=== PATIENT | female | born 1955 | race Two or more races ===

== ENCOUNTER 2022-12-01 07:50 | Day surgery (SDC) | payer MEDICARE, SELFPAY ==
[2022-12-01 08:08] VITALS: BP 146/89; RESP 20; TEMP 36.4; O2SAT 96
[2022-12-01 08:20] LABS: Glucometer 127 mg/dL (74-106)
[2022-12-01] MEDS: 0.9 % SODIUM CHLORIDE 500 ML 50 ML IV (08:20)
--- NOTE | 2022-12-01 08:28 | W.PM.PROCNOT ---
Date of procedure: 12/01/22 Procedure: Right Lateral cutaneous iliohypogastric nerve Radiofrequency ablation PreOp diagnosis: pain secondary to include right lateral cutaneous neuritis Postop diagnosis same Under fluoroscopic guidance Rhizotomy was created using radio frequency ablation at 80?C for 90 seconds 1 to 2 lesions created at each site. Post lesioning injection of 2 mL each of 0.25% Marcaine and 2% lidocaine with Depo-Medrol 40mg. 0.5 to 1 mL injected at each site IV in place yes Intravenous fluids: NS at KVO Anesthesia local 2% lidocaine Anesthesia Other: MAC Timeout process compliant After informed consent obtained. Patient brought to the procedure room placed in the prone position skin overlying the area was prepped and draped in a sterile fashion using betadine. 25 gauge needle was used to create a skin wheal over each of the targeted areas utilizing 2% lidocaine. A rhizotomy needle with a 10 mm active tip was inserted over each of the anesthetized areas and directed towards four different areas in the distribution of the lateral cutaneous branches of the iliohypogastric nerve, accomplished under fluoroscopic guidance. After encountering the same we had positive sensory stimulation, negative motor stimulation was noted. lesions were then created. Post lesioning, steroid solution was injected needles removed. Patient was transferred to recovery room in stable condition to be discharged home after meeting criteria. Surgeon: Johana Jurado Condition: stable
[2022-12-01] MEDS: METHYLPREDNISOLONE ACETATE 40 MG/ML VIAL INJ (09:22)
[2022-12-01] MEDS: LIDOCAINE HCL 2% 400 MG/20 ML MDV 6 ML INJ (09:23)
[2022-12-01] MEDS: BUPIVACAINE HCL 0.25% PF 25 MG/10 ML VIAL 4 ML INJ (09:23)
[2022-12-01 09:35] VITALS: BP 142/66; PULSE 60; RESP 16; O2SAT 98
[2022-12-01 09:47] VITALS: BP 149/77; PULSE 60; RESP 16; O2SAT 99
[2022-12-01 10:08] VITALS: BMI 35.6
== END 2022-12-01 09:57 | disposition home or self-care (01) ==
LOC: SURGOUT 07:51
PROVIDERS: PCP Nurse Practitioner Family; Visit Provider Anesthesiology Pain Medicine
DX: G57.81 Other specified mononeuropathies of right lower limb (principal)
CPT/HCPCS: 36415; 64640; 77002; 82948; J1030; J2704

== ENCOUNTER 2023-01-19 10:30 | Emergency (ER) | payer MEDICARE, SELFPAY ==
[2023-01-19] VITALS (10 sets, daily range): BP systolic 124–163; BP diastolic 72–81; PULSE 69–77; RESP 15–24; TEMP 36.7; O2SAT 96–97; BMI 33.8
--- NOTE | 2023-01-19 10:40 | CT_ITS ---
[address] [address] Patient Name: GUSTAVO FLORES MRN: [id number] date: 1955 Sex: F Assigned Patient Location: Current Patient Location: Accession/Order Number: [id number] Exam Date: 01/19/2023 10:53 Report Date: 01/19/2023 12:22 At the request of: YIMI JARVIS Procedure: CT cervical spine wo con CT cervical spine without contrast, 01/19/2023. HISTORY: Acute neck pain. Numbness and tingling in arms. COMPARISON: None. TECHNIQUE: Noncontrast axial CT images obtained through the cervical spine. Reconstructions obtained in the sagittal and coronal planes. Dose reduction techniques were achieved by using automated exposure control and/or adjustment of mA and/or kV according to patient size and/or use of iterative reconstruction technique. FINDINGS: There are postoperative changes from anterior discectomy and fusion at C5-C6. The hardware is intact. There is good osseous fusion across the C5-C6 disc space. Odontoid process intact. Alignment normal. Facet joints normal. No evidence of fractures. C2-C3, no spinal stenosis or foraminal narrowing. C3-C4, mild degenerative disc disease. There is a shallow broad-based central protrusion with mild spinal stenosis. No foraminal narrowing. C4-C5, moderate degenerative disc disease. Disc bulge and ligamentum flavum thickening result in moderate spinal stenosis. Uncovertebral osteophyte results in moderate left foraminal narrowing. C5-C6, there are postoperative changes from anterior fusion. Mild spinal canal stenosis. Mild left foraminal narrowing. C6-C7, severe degenerative disc disease. Mild spinal stenosis. Uncovertebral osteophyte results in moderate bilateral foraminal narrowing. C7-T1, severe degenerative disc disease. No spinal stenosis. Right foraminal uncovertebral osteophyte results in moderate right foraminal narrowing. No paraspinal soft tissue swelling. No paraspinal mass. CT/CT cervical spine wo con IMPRESSION: 1. There are postoperative changes from previous anterior fusion at C5-C6. There is solid osseous fusion across the disc space. Mild spinal stenosis at this level. Mild left foraminal narrowing. 2. Severe degenerative disc disease at C6-C7 and C7-T1. Moderate degenerative disc disease at C3-C4. 3. Degenerative changes result in moderate spinal stenosis at C4-C5. 4. Mild and moderate foraminal narrowing at multiple levels as described above. Electronically authenticated by: YVES SANDY Date: 01/19/2023 12:22
--- NOTE | 2023-01-19 10:40 | ECG_ITS ---
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
--- NOTE | 2023-01-19 10:48 | ED.GENADUL1 ---
HPI - General Adult General Chief complaint: Neuro Symptoms/Deficit Stated complaint: UPPER EXTREMITY PAIN AND NUMBNESS RIGHT ARM Time Seen by Provider: 01/19/23 10:33 Source: patient Mode of arrival: walk-in Limitations: no limitations History of Present Illness HPI narrative: 67-year-old female presents for left arm numbness and tingling and pain which starts in her neck. She's had this intermittently for two weeks. No headache or chest pain. No symptoms in the right arm or either leg. She's never had this previously. Related Data Home Medications Medication Instructions Recorded Confirmed OSCAL 11/23/22 atorvastatin 40 mg tablet 40 mg PO .HS 11/23/22 12/01/22 dulaglutide 1.5 mg/0.5 mL 1.5 mg subcut QWEEK 11/23/22 12/01/22 subcutaneous pen injector (Trulicity) empagliflozin 25 mg tablet 25 mg PO DAILY 11/23/22 12/01/22 (Jardiance) ferrous sulfate 325 mg (65 mg mg 11/23/22 iron) tablet gabapentin 600 mg tablet mg PO TID 11/23/22 insulin aspart U-100 100 unit/mL 30 unit subcut TID 11/23/22 12/01/22 (3 mL) subcutaneous pen (Novolog FlexPen U-100 Insulin aspart) mycophenolate mofetil 500 mg tablet 800 mg PO BID 11/23/22 12/01/22 naloxone 4 mg/actuation nasal spray intranasal 11/23/22 oxycodone-acetaminophen 7.5 mg-325 1 tab PO TID PRN pain 11/23/22 12/01/22 mg tablet (Endocet) sertraline 100 mg tablet 100 mg PO DAILY 11/23/22 12/01/22 tacrolimus 1 mg capsule, 3 mg PO Q12H 11/23/22 12/01/22 immediate-release tizanidine 4 mg tablet mg PO .HS PRN muscle spasticity 11/23/22 Previous Rx's Medication Instructions Recorded ibuprofen 800 mg tablet 800 mg PO Q8H PRN pain #20 tabs 01/19/23 methylprednisolone 4 mg tablets in 4 mg PO DAILY #21 ea 01/19/23 a dose pack (Methylpred DP) Allergies Allergy/AdvReac Type Severity Reaction Status Date / Time No Known Drug Allergies Allergy Verified 01/19/23 10:40 Review of Systems ROS Narrative A ten point review of systems is negative except as noted above. [facility] Medical History (Updated 01/19/23 @ 11:42 by Dani Solo MD) Surgical History (Updated 11/24/22 @ 11:35 by Domi Larose) Social History Smoking status: Never smoker Exam Narrative Exam Narrative: Nurses note and vital signs reviewed and patient is not hypoxic. General: The patient appears well and in no apparent distress. Patient is resting comfortably on cart. Skin: Warm, dry, no pallor noted. There is no rash noted. Head: Normocephalic, atraumatic. nneck has no bruise rash or swelling or erythema. Eye: Normal conjunctiva, no drainage Ears, Nose, Mouth, and Throat: oral mucosa is moist. Nares patent. Cardiovascular: Regular Rate and Rhythm Respiratory: Patient is in no distress, no accessory muscle use, lungs are clear to auscultation, no wheezing, rales or rhonchi Back: non-tender GI: nontender Musculoskeletal/neurologic: left arm is examined. There is no swelling or bruise or rash. Radial pulse 2+. Hand grasp five out of five and symmetric. Biceps and triceps strength five out five and symmetric. Shoulder has full range of motion. Psychiatric: Cooperative Constitutional Vital Signs, click to edit/add: Last Vital Signs Temp 98.0 F 01/19/23 10:36 Pulse 77 01/19/23 10:36 Resp 18 01/19/23 10:36 BP 163/81 H 01/19/23 10:36 Pulse Ox 97 01/19/23 10:36 O2 Del Method Room Air 01/19/23 10:36 Course Vital Signs Vital signs: Vital Signs Temperature 98.0 F 01/19/23 10:36 Pulse Rate 77 01/19/23 10:36 Respiratory Rate 18 01/19/23 10:36 Blood Pressure 163/81 H 01/19/23 10:36 Pulse Oximetry 97 01/19/23 10:36 Oxygen Delivery Method Room Air 01/19/23 10:36 Temperature 98.0 F 01/19/23 10:36 Pulse Rate 77 01/19/23 10:36 Respiratory Rate 18 01/19/23 10:36 Blood Pressure 163/81 H 01/19/23 10:36 Pulse Oximetry 97 01/19/23 10:36 Oxygen Delivery Method Room Air 01/19/23 10:36 Medical Decision Making MDM Narrative Medical decision making narrative: CAT scan findings are discussed with the patient. She previously had cervical spine surgery. She is going to be put on a low-dose of prednisone and will keep a close eye on her blood sugars. She is already on Percocet at home and is prescribed Motrin as well. Treatment diagnosis and follow-up were discussed with the patient. Differential Diagnosis Differential Diagnosis: herniated disc, cervical radiculopathy, spinal stenosis Imaging Data CT C-spine: Radiologist's impression: significant degenerative changes. ECG Data Attestation: I personally reviewed and interpreted this ECG as follows: (EKG on my interpretation shows normal sinus rhythm with a rate of seventy-three.) Discharge Plan Discharge Chief Complaint: Neuro Symptoms/Deficit Clinical Impression: Cervical radiculopathy Patient Disposition: Home, Self-Care Time of Disposition Decision: 11:37 Condition: Good Mode of Transportation: Private Vehicle Prescriptions / Home Meds: New methylprednisolone [Methylpred DP] 4 mg tablets,dose pack 4 mg PO DAILY Qty: 21 0RF ibuprofen 800 mg tablet 800 mg PO Q8H PRN (Reason: pain) Qty: 20 0RF No Action oxycodone-acetaminophen [Endocet] 7.5-325 mg tablet 1 tab PO TID PRN (Reason: pain) gabapentin 600 mg tablet PO TID ferrous sulfate 325 mg (65 mg iron) tablet Jardiance 25 mg tablet 25 mg PO DAILY tizanidine 4 mg tablet PO .HS PRN (Reason: muscle spasticity) tacrolimus 1 mg capsule 3 mg PO Q12H sertraline 100 mg tablet 100 mg PO DAILY atorvastatin 40 mg tablet 40 mg PO .HS naloxone 4 mg/actuation spray,non-aerosol INTRANASAL insulin aspart U-100 [Novolog FlexPen U-100 Insulin] 100 unit/mL (3 mL) insulin pen 30 unit subcut TID Trulicity 1.5 mg/0.5 mL pen injector 1.5 mg subcut QWEEK mycophenolate mofetil 500 mg tablet 800 mg PO BID OSCAL Instructions: Cervical Radiculopathy (ED) Stand Alone Forms: Portal Instructions Referrals: YOLANDA MAGAÑA [Primary Care Provider] - 1 week
== END 2023-01-19 11:56 | disposition home or self-care (01) ==
PROVIDERS: Emergency Provider Emergency Medicine; PCP Nurse Practitioner Family
DX: M54.12 Radiculopathy, cervical region (principal); Z79.899 Other long term (current) drug therapy; Z79.85 Long-term (current) use of injectable non-insulin antidiabetic drugs
CPT/HCPCS: 72125; 93005; 99284

== ENCOUNTER 2023-01-26 09:30 | Day surgery (SDC) | payer MEDICARE, SELFPAY ==
[2023-01-26 10:23] VITALS: BP 159/81; PULSE 67; RESP 16; TEMP 36.3; O2SAT 96
[2023-01-26 10:25] LABS: Glucometer 134 mg/dL (74-106)
[2023-01-26] MEDS: 0.9 % SODIUM CHLORIDE 500 ML IV (10:33)
[2023-01-26] MEDS: BUPIVACAINE HCL 0.25% PF 25 MG/10 ML VIAL 4 ML INJ (11:18)
[2023-01-26] MEDS: LIDOCAINE HCL 2% 400 MG/20 ML MDV 8 ML INJ (11:19)
[2023-01-26] MEDS: METHYLPREDNISOLONE ACETATE 40 MG/ML VIAL INJ (11:19)
[2023-01-26 11:24] VITALS: BP 128/73; PULSE 63; RESP 15; TEMP 36.3; O2SAT 96
[2023-01-26 11:25] VITALS: BP 126/73; PULSE 64; RESP 16; TEMP 36.3; O2SAT 95
--- NOTE | 2023-01-26 16:11 | W.PM.PROCNOT ---
Date of procedure: 01/26/23 Pre-op diagnosis: Lateral cutaneous iliohypogastric neuritis Post-op diagnosis: same as pre-op Procedure: Left Lateral cutaneous iliohypogastric nerve Radiofrequency ablation PreOp diagnosis: pain secondary to include lateral cutaneous iliohypogastric neuritis Postop diagnosis same Under fluoroscopic guidance Rhizotomy was created using radio frequency ablation at 80?C for 90 seconds 1 to 2 lesions created at each site. Post lesioning injection of 2 mL each of 0.25% Marcaine and 2% lidocaine with Depo-Medrol 40mg. 0.5 to 1 mL injected at each site IV in place yes If Intravenous fluids: NS at KVO Anesthesia local 2% lidocaine for Anesthesia Other: MAC Timeout process compliant After informed consent obtained. Patient brought to the procedure room placed in the prone position skin overlying the area was prepped and draped in a sterile fashion using betadine. 25 gauge needle was used to create a skin wheal over each of the targeted areas utilizing 2% lidocaine. A rhizotomy needle with a 10 mm active tip was inserted over each of the anesthetized areas and directed towards four different areas in the distribution of the lateral cutaneous branches of the iliohypogastric nerve, accomplished under fluoroscopic guidance. After encountering the same we had positive sensory stimulation, negative motor stimulation was noted. lesions were then created. Post lesioning, steroid solution was injected needles removed. Patient was transferred to recovery room in stable condition to be discharged home after meeting criteria. Anesthesia: MAC Surgeon: Johana Jurado Condition: stable
== END 2023-01-26 11:45 | disposition home or self-care (01) ==
LOC: SURGOUT 09:32
PROVIDERS: PCP Nurse Practitioner Family; Visit Provider Anesthesiology Pain Medicine
DX: G57.82 Other specified mononeuropathies of left lower limb (principal); E11.9 Type 2 diabetes mellitus without complications
CPT/HCPCS: 36415; 36416; 64640; 77002; 82948; J1030; J2704

== ENCOUNTER 2023-02-04 13:30 | Outpatient (OUT) | payer MEDICARE, SELFPAY ==
--- NOTE | 2023-02-04 14:09 | P.CN_ITS ---
Consult Note: HPI Data of Consult Patient: known to practice within the last 3 years Requesting Physician: MEL JACKSON NP Primary Care Provider: YOLANDA MAGAÑA Consult Narrative Reason for consult: neck pain and right/left LCIH RFA f/u Narrative: Lisy Christianson a pleasant 67 year old female presents for evaluation of chronic pain. Patient recently underwent right and left LCIH RFA and is reporting 75% pain relief and improvement in functional ability. Patient has a history of chronic neck pain and recently went to the ER with radiculopathy symptoms down left arm. CT reviewed from this visit. Patient continues to have 7/10 neck pain with radiculopathy on left side and would like to discuss options. cc:: CC: MEL JACKSON NP Review of Systems ROS Status of ROS 10 or more systems reviewed and unremarkable except as noted in history and below Musculoskeletal Reports: neck pain PFSH PFSH Medical History (Updated 02/04/23 @ 14:20 by Qiana Chiu NP) Surgical History Social History Smoking status: Never smoker Meds Home Medications and Allergies Home Medications Medication Instructions Recorded Confirmed Type OSCAL 11/23/22 History atorvastatin 40 mg tablet 40 mg PO .HS 11/23/22 01/26/23 History dulaglutide 1.5 mg/0.5 mL 1.5 mg subcut QWEEK 11/23/22 01/26/23 History subcutaneous pen injector (Trulicity) empagliflozin 25 mg tablet 25 mg PO DAILY 11/23/22 01/26/23 History (Jardiance) ferrous sulfate 325 mg (65 mg mg 11/23/22 History iron) tablet gabapentin 600 mg tablet mg PO TID 11/23/22 History insulin aspart U-100 100 unit/mL 30 unit subcut TID 11/23/22 01/26/23 History (3 mL) subcutaneous pen (Novolog FlexPen U-100 Insulin aspart) mycophenolate mofetil 500 mg tablet 800 mg PO BID 11/23/22 12/01/22 History naloxone 4 mg/actuation nasal spray intranasal 11/23/22 History oxycodone-acetaminophen 7.5 mg-325 1 tab PO TID PRN pain 11/23/22 01/26/23 History mg tablet (Endocet) sertraline 100 mg tablet 100 mg PO DAILY 11/23/22 01/26/23 History tacrolimus 1 mg capsule, 3 mg PO Q12H 11/23/22 01/26/23 History immediate-release Allergies Allergy/AdvReac Type Severity Reaction Status Date / Time No Known Drug Allergies Allergy Verified 01/26/23 10:17 Exam Constitutional Documenting provider has reviewed patient's vital signs: yes Common normals: no apparent distress, oriented x3, healthy appearing, alert and well nourished General appearance: cooperative Nutritional appearance: overweight HENMT Common normals: normocephalic, hearing grossly normal bilaterally and moist oral mucous membranes Head and scalp: normocephalic Eye Common normals: PERRL Pupil: PERRL Neck & C-Spine General: normal visual inspection Cervical spine: cervical ROM abnormal, pain with cervical ROM, cervical spine tenderness and paracervical muscle tenderness Other: left sided radiculopathy Chest Common normals: inspection of chest normal Respiratory Common normals: normal respiratory effort, no retractions and no use of accessory muscles Neuro Common normals: oriented x3, CN's II-XII intact bilaterally, moves all extremities, no focal motor deficits, no sensory deficits noted and deep tendon reflexes 2+ bilaterally Sensorium/orientation: alert Motor exam: no movement abnormalities noted and strength abnormal (LUE 4/5 RUE 5/5 BLE 5/5) Other: left arm/hand radiculopathy intermittent numbness tingling and weakness Psych Common normals: mental status grossly normal, thought process normal, cooperative, affect normal, speech normal and activity/motor behavior normal Speech: normal speech Thought process: normal thought process Results Additional Findings Additional findings: I have checked an [place]AR[place] report on this patient today and there are no aberrancies noted in the prescribing history.?? A drug screen was completed and reviewed within the last year, and if there has not been a drug screen completed we ordered one today to monitor higher risk, state monitored pain medication use. As part of providing excellent, safe, comprehensive care, the following was completed at our patient's visit: 1. A medication reconciliation and review to ensure accurate knowledge of current/active medications, including asking our patients to inform us about any [id number] medications or herbal remedies/nutritional supplements/alternative remedies. 2. A review to specifically ensure our patients have had annual screening for: elevated body mass index (BMI), tobacco use, screening for depression, and screening for unhealthy alcohol use. When screening is concerning, patients are provided with education and the specific recommendation to discuss the concerning health issue and treatment options with their primary care provider. Assessment and Plan Assessment and Plan (1) Cervical radiculopathy: Assessment and Plan: reviewed CT of cervical spine with pt (2) Neuritis: Assessment and Plan: LCIH RFA 75% pain relief ongoing (3) Lumbar spondylosis: (4) Chronic, continuous use of opioids: Assessment and Plan: I have refilled the patient's opioid prescriptions at the above noted dose and schedule.? I feel these medications are improving the patient's quality of life and allow them to tolerate activities of daily living as well as participate in recreational activity.? The patient does not report intolerable side effects. The patient is NOT opioid naive and non-pharmacologic and non-opioid treatment has failed to significantly relieve the patient's pain and improve functionality. The patient has a diagnosis that is related to a somatic or visceral pain etiology.??I reviewed with the patient the potential risks and side effects with the use of? opioid medications including but not limited to respiratory depression,?sedation, and even . I verified the patient has access to naloxone should? these effects occur. I advised the patient to avoid the use of any other?sedation substances including alcohol, THC, and benzodiazepines while? taking opioid medications due to the risk of compounding side effects and?detrimental outcomes. I reviewed the [employer], pain treatment agreement, urine?drug screen, and opioid start talking forms. The patient was advised to let? their family know they had Naloxone in case they would need to administer?the medication.? (5) Low back pain: Plan reviewed cervical spine CT with patient C5-6 JAELYN start PT for low back pain, was previously ordered and did not follow through. Will reorder today refill Percocet 7.5/325mg TID PRN consider lumbar MRI after PT for lumbar stenosis consider cervical facet blocks in the future consider lumbar facet blocks in the future f/u after procedure
== END 2023-02-04 13:31 | disposition home or self-care (01) ==
PROVIDERS: PCP Nurse Practitioner Family; Visit Provider Nurse Practitioner
DX: M54.12 Radiculopathy, cervical region (principal); M47.816 Spondylosis without myelopathy or radiculopathy, lumbar region; Z79.891 Long term (current) use of opiate analgesic
CPT/HCPCS: G0463

== ENCOUNTER 2023-02-11 10:52 | Outpatient (RCR) | payer MEDICARE, SELFPAY | END 2023-03-12 17:27 | disposition home or self-care (01) | LOC: PT 10:52 | PROVIDERS: PCP Nurse Practitioner Family; Visit Provider Anesthesiology Pain Medicine | DX: M48.061 Spinal stenosis, lumbar region without neurogenic claudication (principal) | CPT/HCPCS: 97035; 97110; 97140; 97161 ==

== ENCOUNTER 2023-04-20 09:40 | Day surgery (SDC) | payer MEDICARE, SELFPAY ==
[2023-04-20 10:02] LABS: Glucometer 120 mg/dL (74-106)
[2023-04-20 10:03] VITALS: BP 151/86; PULSE 64; RESP 16; TEMP 36.3; O2SAT 97
[2023-04-20 10:43] VITALS: BP 143/69; PULSE 63; RESP 18; O2SAT 95
[2023-04-20] MEDS: BUPIVACAINE HCL 0.25% PF 25 MG/10 ML VIAL 2 ML INJ (10:43)
[2023-04-20] MEDS: DEXAMETHASONE SOD PHOS 10 MG/ML VIAL INJ (10:43)
[2023-04-20] MEDS: LIDOCAINE HCL 2% PF 100 MG/5 ML VIAL 2 ML INJ (10:43)
[2023-04-20] MEDS: IOHEXOL 300 MG/ML - 50 ML BTL 6 MG INJ (10:43)
[2023-04-20 10:46] VITALS: BP 156/77; PULSE 63; RESP 18; O2SAT 95
--- NOTE | 2023-04-20 11:35 | P.ON_ITS ---
Date of procedure: 04/20/23 Pre-op diagnosis: cervical radiculopathy Post-op diagnosis: same as pre-op Procedure: Cervical 5/6 Epidural Steroid Injection Under fluoroscopic guidance Immediate complications none Solution used for injection: Marcaine 0.25% 2mL, 2cc Normal saline, Depo-Medrol 80mg Omnipaque 3 mL Anesthesia local 2% lidocaine up to 4ml Timeout process compliant After informed consent obtained. Patient brought to the procedure room placed in the prone position. Skin overlying the area was prepped and draped in a sterile fashion using betadine. 25 gauge needle used to raise a skin wheel with local anesthetic over the target area identified under fluoroscopy. A 17 gauge Touhy needle Was inserted over the anesthetized area and directed towards the inter- space under fluoroscopic guidance. Epidural space was identified with loss of resistance technique to air. Needle Tip placement confirmed with injection of contrast solution. Steroid solution was then injected. Anesthesia: Local Surgeon: Johana Jurado Condition: stable
== END 2023-04-20 10:52 | disposition home or self-care (01) ==
LOC: SURGOUT 09:40
PROVIDERS: PCP Nurse Practitioner Family; Visit Provider Anesthesiology Pain Medicine
DX: M54.12 Radiculopathy, cervical region (principal); Z79.4 Long term (current) use of insulin
CPT/HCPCS: 36415; 62321; 82948; J1100; Q9967

== ENCOUNTER 2023-04-29 08:57 | Outpatient (OUT) | payer MEDICARE, SELFPAY ==
--- NOTE | 2023-04-29 09:46 | P.CN_ITS ---
Consult Note: HPI Data of Consult Patient: known to practice within the last 3 years Requesting Physician: Qiana Chiu NP Primary Care Provider: YOLANDA MAGAÑA Consult Narrative Reason for consult: f/u Narrative: Lisy Solis a pleasant 67 year old female presents for evaluation and management of chronic low back pain and neck pain with radiculopathy. Patient recently underwent a cervical JAELYN with 75% pain relief and functional improvement ongoing. Patient concerned as she continues to have low back pain, today 03/23, with weakness and numbness to bilateral legs. Pain is somewhat responsive to current medication regimen but patient would like additional workup for this ongoing pain. Recently completed 6 weeks of PT for low back pain without ongoing benefit. 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.10 - Type 1 diabetes mellitus with ketoacidosis without coma (ICD-10) Hypertension ?I10 - Essential (primary) hypertension (ICD-10) Kidney failure ?N19 - Unspecified kidney failure (ICD-10) Low back pain ?M54.50 - Low back pain, unspecified (ICD-10) Neck pain ?M54.2 - Cervicalgia (ICD-10) Obesity ?E66.9 - Obesity, unspecified (ICD-10) Upper back pain ?M54.9 - Dorsalgia, unspecified (ICD-10) Surgical History H/O cervical spine surgery ?Z98.890 - Other specified postprocedural states (ICD-10) H/O section ?Z98.891 - History of uterine scar from previous surgery (ICD-10) H/O hand surgery ?Z98.890 - Other specified postprocedural states (ICD-10) H/O: hysterectomy ?Z90.710 - Acquired absence of both cervix and uterus (ICD-10) History of arthroscopy of left shoulder ?Z98.890 - Other specified postprocedural states (ICD-10) History of carpal tunnel release of both wrists ?Z98.890 - Other specified postprocedural states (ICD-10) History of cholecystectomy ?Z90.49 - Acquired absence of other specified parts of digestive tract (ICD- 10) History of tonsillectomy and adenoidectomy ?Z90.89 - Acquired absence of other organs (ICD-10) Kidney transplant recipient ?Z94.0 - Kidney transplant status (ICD-10) Social History Smoking status: Never smoker Meds Home Medications and Allergies Home Medications Medication Instructions Recorded Confirmed Type OSCAL 11/23/22 History atorvastatin 40 mg tablet 40 mg PO .HS 11/23/22 04/20/23 History dulaglutide 1.5 mg/0.5 mL 1.5 mg subcut QWEEK 11/23/22 04/20/23 History subcutaneous pen injector (Trulicity) empagliflozin 25 mg tablet 25 mg PO DAILY 11/23/22 04/20/23 History (Jardiance) ferrous sulfate 325 mg (65 mg mg 11/23/22 History iron) tablet gabapentin 600 mg tablet mg PO TID 11/23/22 History insulin aspart U-100 100 unit/mL 30 unit subcut TID 11/23/22 04/20/23 History (3 mL) subcutaneous pen (Novolog FlexPen U-100 Insulin aspart) mycophenolate mofetil 500 mg tablet 800 mg PO BID 11/23/22 04/20/23 History oxycodone-acetaminophen 7.5 mg-325 1 tab PO TID PRN pain 11/23/22 04/20/23 History mg tablet (Endocet) sertraline 100 mg tablet 100 mg PO DAILY 11/23/22 04/20/23 History tacrolimus 1 mg capsule, 3 mg PO Q12H 11/23/22 04/20/23 History immediate-release baclofen 10 mg tablet 10 mg PO TID PRN muscle spasm #90 03/03/23 04/20/23 Rx tabs oxycodone-acetaminophen 7.5 mg-325 1 tab PO TID PRN pain #90 tabs 03/03/23 04/20/23 Rx mg tablet (Percocet) oxycodone-acetaminophen 7.5 mg-325 1 tab PO TID PRN pain #90 tabs 04/08/23 04/20/23 Rx mg tablet (Percocet) semaglutide 0.25 mg or 0.5 mg (2 0.25 mg subcut QWEEK 04/20/23 04/20/23 History mg/3 mL) subcutaneous pen injector (Ozempic) semaglutide 0.25 mg or 0.5 mg (2 0.25 mg subcut QWEEK 04/20/23 04/20/23 History mg/3 mL) subcutaneous pen injector (Ozempic) oxycodone-acetaminophen 7.5 mg-325 1 tab PO TID PRN pain #90 tabs 04/29/23 Rx mg tablet (Percocet) Allergies Allergy/AdvReac Type Severity Reaction Status Date / Time No Known Drug Allergies Allergy Verified 01/26/23 10:17 Exam Constitutional Documenting provider has reviewed patient's vital signs: yes Common normals: no apparent distress, oriented x3, healthy appearing, alert and well nourished General appearance: cooperative Nutritional appearance: overweight HENMT Common normals: normocephalic, hearing grossly normal bilaterally and moist oral mucous membranes Head and scalp: normocephalic Eye Common normals: PERRL Pupil: PERRL Neck & C-Spine General: normal visual inspection Cervical spine: pain with cervical ROM Chest Common normals: inspection of chest normal Respiratory Common normals: normal respiratory effort, no retractions and no use of accessory muscles Back & Pelvis Lumbar spine/lower back: ROM limited, pain with ROM, straight leg raise positive right and straight leg raise positive left Sacroiliac joints: SI joints normal Extremity Common normals: normal to inspection and full ROM Neuro Common normals: oriented x3, CN's II-XII intact bilaterally, moves all extremities, no focal motor deficits, no sensory deficits noted and deep tendon reflexes 2+ bilaterally Sensorium/orientation: alert Gait (neuro): antalgic Motor exam: no movement abnormalities noted and strength abnormal (BLE 4/5) Psych Common normals: mental status grossly normal, thought process normal, cooperative, affect normal, speech normal and activity/motor behavior normal Speech: normal speech Thought process: normal thought process Assessment and Plan Assessment and Plan (1) Lumbar stenosis with neurogenic claudication: (2) Chronic, continuous use of opioids: Assessment and Plan: I feel these medications are improving the patient's quality of life and allow them to tolerate activities of daily living as well as participate in recreational activity.? The patient does not report intolerable side effects. The patient is NOT opioid naive and non-pharmacologic and non-opioid treatment has failed to significantly relieve the patient's pain and improve functionality. The patient has a diagnosis that is related to a somatic or visceral pain etiology. ? ?? I reviewed with the patient the potential risks and side effects with the use of? opioid medications including but not limited to respiratory depression,? sedation, and even . I verified the patient has access to naloxone should? these effects occur. I advised the patient to avoid the use of any other? sedation substances including alcohol, THC, and benzodiazepines while? taking opioid medications due to the risk of compounding side effects and? detrimental outcomes. I reviewed the [employer], pain treatment agreement, urine? drug screen, and opioid start talking forms. The patient was advised to let? their family know they had Naloxone in case they would need to administer? the medication.? ?? A drug screen was completed within the last year, and no aberrancies were noted regarding their use of controlled substances. The patient understands they are subject to the terms and conditions of the pain contract that they have signed. ? ?? I have checked an [place] report on this patient today and there are no aberrancies noted in the prescribing history.? (3) Lumbar spondylosis: (4) Cervical radiculopathy: (5) Lumbar radiculopathy: Plan patient has completed 6 weeks of PT and HEP without ongoing pain relief, unfortunately due to cost she was not able to go to more than 7 visits of PT. Patient continues to have low back pain with intermittent numbness and weakness to BLE. Hx of spinal stenosis as well as degerenative changes in the lumbar spine. It is pertinent to obtain an MRI of lumbar spine without contrast to evaluate next steps for injection therapy/procedures, as well as need for NS consult continue current medications f/u after MRI
== END 2023-04-29 08:58 | disposition home or self-care (01) ==
PROVIDERS: PCP Nurse Practitioner Family; Visit Provider Nurse Practitioner
DX: M48.062 Spinal stenosis, lumbar region with neurogenic claudication (principal); Z79.891 Long term (current) use of opiate analgesic; M47.816 Spondylosis without myelopathy or radiculopathy, lumbar region; M54.12 Radiculopathy, cervical region; M54.16 Radiculopathy, lumbar region
CPT/HCPCS: G0463

== ENCOUNTER 2023-05-18 11:04 | Outpatient (OUT) | payer MEDICARE, SELFPAY ==
--- NOTE | 2023-05-18 11:11 | MR_ITS ---
[address] [address] Patient Name: GUSTAVO FLORES MRN: [facility]:[id number] date: 1955 Sex: F Assigned Patient Location: MRI Current Patient Location: MRI Accession/Order Number: [id number] Exam Date: 05/18/2023 11:14 Report Date: 05/18/2023 13:03 At the request of: LISA CARCAMO Procedure: MR lumbar spine wo con EXAM: MRI of the lumbar spine without IV gadolinium contrast. REASON FOR EXAM: Lumbar Stenosis COMPARISON: MRI dated 02/13/2020 FINDINGS: No acute or subacute lumbar spine fractures, acute malalignment or acute abnormal marrow signal. No spinal canal mass, hematoma or fluid collection. T12 chronic compression fracture with mild height loss, likely in the setting of a hemangioma. Grade 1 anterolisthesis of L3 on L4 and L4-L5. Lumbar spine degenerative changes with posterior disc bulging at the L1-L2 level. L2-L3 and L3-L4 posterior disc protrusions. L4-5 and L5-S1 mild posterior disc bulging. Relatively preserved intervertebral disc heights. Mild L1-L2 spinal canal stenosis. Moderate to severe L2-L3 spinal canal stenosis. Moderate to severe L3-L4 spinal canal stenosis. Moderate to severe L4-5 spinal canal stenosis, worse along the left lateral recess. Mild L5-S1 spinal canal stenosis. Mild right L1-L2 neural foraminal stenosis. Moderate right L2-L3 and L3-L4 neural foraminal stenoses. Mild right L4-5 neural foraminal stenosis. Mild left L1-L2 neural foraminal stenosis. Mild to moderate left L2-L3 and L3-L4 neural foraminal stenoses. Mild left L4-5 and L5-S1 neural foraminal stenoses. Atrophic left kidney. Right pelvic kidney. Remainder unremarkable. MR/MR lumbar spine wo con IMPRESSION: Moderate to severe L2-L3, L3-L4 and L4-5 spinal canal stenoses. Electronically authenticated by: YESSENIA MONTOYA Date: 05/18/2023 13:03
== END 2023-05-18 11:05 | disposition home or self-care (01) ==
LOC: MRI 11:04
PROVIDERS: PCP Nurse Practitioner Family; Visit Provider Nurse Practitioner
DX: M48.061 Spinal stenosis, lumbar region without neurogenic claudication (principal)
CPT/HCPCS: 72148

== ENCOUNTER 2023-05-26 08:59 | Outpatient (OUT) | payer MEDICARE, SELFPAY ==
--- NOTE | 2023-05-26 09:32 | P.CN_ITS ---
Consult Note: HPI Data of Consult Patient: known to practice within the last 3 years Requesting Physician: Qiana Chiu NP Primary Care Provider: YOLANDA MAGAÑA Consult Narrative Reason for consult: MRI review Narrative: Lisy Solis a pleasant 67 year old female presents for evaluation and management of chronic bilateral low back pain, today pain 10/10 sharp. Recently underwent a lumbar MRI, here to review results. Pain today 10/10 in bilateral low back radiating to bilateral thighs and legs, sharp shooting pain. 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 - Type 1 diabetes mellitus with ketoacidosis without coma (ICD-10) Kidney failure ?N19 - Unspecified kidney failure (ICD-10) Hypertension ?I10 - Essential (primary) hypertension (ICD-10) Surgical History History of cholecystectomy ?Z90.49 - Acquired absence of other specified parts of digestive tract (ICD- 10) History of arthroscopy of left shoulder ?Z98.890 - Other specified postprocedural states (ICD-10) H/O hand surgery ?Z98.890 - Other specified postprocedural states (ICD-10) H/O section ?Z98.891 - History of uterine scar from previous surgery (ICD-10) H/O cervical spine surgery ?Z98.890 - Other specified postprocedural states (ICD-10) History of tonsillectomy and adenoidectomy ?Z90.89 - Acquired absence of other organs (ICD-10) History of carpal tunnel release of both wrists ?Z98.890 - Other specified postprocedural states (ICD-10) H/O: hysterectomy ?Z90.710 - Acquired absence of both cervix and uterus (ICD-10) Kidney transplant recipient ?Z94.0 - Kidney transplant status (ICD-10) Social History Smoking status: Never smoker Meds Home Medications and Allergies Home Medications Medication Instructions Recorded Confirmed Type OSCAL 11/23/22 History atorvastatin 40 mg tablet 40 mg PO .HS 11/23/22 04/20/23 History dulaglutide 1.5 mg/0.5 mL 1.5 mg subcut QWEEK 11/23/22 04/20/23 History subcutaneous pen injector (Trulicity) empagliflozin 25 mg tablet 25 mg PO DAILY 11/23/22 04/20/23 History (Jardiance) ferrous sulfate 325 mg (65 mg mg 11/23/22 History iron) tablet gabapentin 600 mg tablet mg PO TID 11/23/22 History insulin aspart U-100 100 unit/mL 30 unit subcut TID 11/23/22 04/20/23 History (3 mL) subcutaneous pen (Novolog FlexPen U-100 Insulin aspart) mycophenolate mofetil 500 mg tablet 800 mg PO BID 11/23/22 04/20/23 History oxycodone-acetaminophen 7.5 mg-325 1 tab PO TID PRN pain 11/23/22 04/20/23 History mg tablet (Endocet) sertraline 100 mg tablet 100 mg PO DAILY 11/23/22 04/20/23 History tacrolimus 1 mg capsule, 3 mg PO Q12H 11/23/22 04/20/23 History immediate-release baclofen 10 mg tablet 10 mg PO TID PRN muscle spasm #90 03/03/23 04/20/23 Rx tabs oxycodone-acetaminophen 7.5 mg-325 1 tab PO TID PRN pain #90 tabs 03/03/23 04/20/23 Rx mg tablet (Percocet) oxycodone-acetaminophen 7.5 mg-325 1 tab PO TID PRN pain #90 tabs 04/08/23 04/20/23 Rx mg tablet (Percocet) semaglutide 0.25 mg or 0.5 mg (2 0.25 mg subcut QWEEK 04/20/23 04/20/23 History mg/3 mL) subcutaneous pen injector (Ozempic) semaglutide 0.25 mg or 0.5 mg (2 0.25 mg subcut QWEEK 04/20/23 04/20/23 History mg/3 mL) subcutaneous pen injector (Ozempic) oxycodone-acetaminophen 7.5 mg-325 1 tab PO TID PRN pain #90 tabs 04/29/23 Rx mg tablet (Percocet) Allergies Allergy/AdvReac Type Severity Reaction Status Date / Time No Known Drug Allergies Allergy Verified 01/26/23 10:17 Exam Constitutional Documenting provider has reviewed patient's vital signs: yes Common normals: no apparent distress, oriented x3, healthy appearing, alert and well nourished General appearance: cooperative Nutritional appearance: overweight HENMT Common normals: normocephalic, hearing grossly normal bilaterally and moist oral mucous membranes Head and scalp: normocephalic Eye Common normals: PERRL Pupil: PERRL Neck & C-Spine Common normals: full ROM General: normal visual inspection Cervical spine: pain with cervical ROM Chest Common normals: inspection of chest normal Respiratory Common normals: normal respiratory effort, no retractions and no use of accessory muscles Back & Pelvis Lumbar spine/lower back: ROM limited, pain with ROM, straight leg raise positive right and straight leg raise positive left Sacroiliac joints: SI joints normal Extremity Common normals: normal to inspection and full ROM Neuro Common normals: oriented x3, CN's II-XII intact bilaterally, moves all extremities, no focal motor deficits, no sensory deficits noted and deep tendon reflexes 2+ bilaterally Sensorium/orientation: alert Gait (neuro): antalgic Motor exam: strength 5/5 throughout and no movement abnormalities noted Psych Common normals: mental status grossly normal, thought process normal, cooperative, affect normal, speech normal and activity/motor behavior normal Speech: normal speech Thought process: normal thought process Results Additional Findings Additional findings: I have checked an [place] report on this patient today and there are no aberrancies noted in the prescribing history.?? A drug screen was completed and reviewed within the last year, and if there has not been a drug screen completed we ordered one today to monitor higher risk, state monitored pain medication use. As part of providing excellent, safe, comprehensive care, the following was completed at our patient's visit: 1. A medication reconciliation and review to ensure accurate knowledge of current/active medications, including asking our patients to inform us about any [id number] medications or herbal remedies/nutritional supplements/alternative remedies. 2. A review to specifically ensure our patients have had annual screening for: elevated body mass index (BMI), tobacco use, screening for depression, and screening for unhealthy alcohol use. When screening is concerning, patients are provided with education and the specific recommendation to discuss the concerning health issue and treatment options with their primary care provider. Assessment and Plan Assessment and Plan (1) Lumbar stenosis with neurogenic claudication: (2) Lumbar radiculopathy: (3) Chronic, continuous use of opioids: (4) Cervical radiculopathy: Plan MRI reveals multiple levels of degenerative changes and [id number] stensosis NS referral to discuss options declining lumbar ESIs at this time asked for increase in pain medication, however I do not feel the benefits outweigh the risks at this time. continue percocet 7.5/325 TID PRN narcan previously discussed and prescribed increase gabapentin to 700mg TID, discussed risks vs benefits and potential side effects f/u 6 weeks to evaluate medications
== END 2023-05-26 09:00 | disposition home or self-care (01) ==
LOC: PM 08:59
PROVIDERS: PCP Nurse Practitioner Family; Visit Provider Nurse Practitioner
DX: M48.062 Spinal stenosis, lumbar region with neurogenic claudication (principal); M54.16 Radiculopathy, lumbar region; Z79.891 Long term (current) use of opiate analgesic; M54.12 Radiculopathy, cervical region
CPT/HCPCS: G0463

== ENCOUNTER 2023-07-08 08:56 | Outpatient (OUT) | payer MEDICARE, SELFPAY ==
--- OUTSIDE RECORDS SUMMARY | 2023-07-08 08:59 | XMS_ITS | CCD ---
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 Name Role Phone Airam Thomas Unavailable Sara Adhikari Unavailable DR MARYCRUZ GUZMAN Primary Care Unavailable LAKSHMIPATHY ., NARENDRANATH Admitting Kaylee vailable LAKSHMIPATHY ., NARENDRANATH Attending Kaylee vailable LAKSHMIPATHY ., NARENDRANATH Consulting Kaylee vailable LAKSHMIPATHY ., NARENDRANATH Admitting Kaylee vailable LAKSHMIPATHY ., NARENDRANATH Attending Kaylee vailable DR MARYCRUZ GUZMAN Primary Care Unavailable LAKSHMIPATHY ., NARENDRANATH Consulting Kaylee vailable LAKSHMIPATHY ., NARENDRANATH Admitting Kaylee vailable LAKSHMIPATHY ., NARENDRANATH Attending Kaylee vailable DR MARYCRUZ GUZMAN Primary Care Unavailable LAKSHMIPATHY ., KMENDRANATH Consulting Kaylee vailable SHADI KNOX Consulting Unavailable LAKSHMIPATHY ., NARENDRANATH Admitting Kaylee vailable LAKSHMIPATHY ., NARENDRANATH Attending Kaylee vailable DR MARYCRUZ GUZMAN Primary Care Unavailable LAKSHMIPATHY ., NARENDRANATH Admitting Kaylee vailable LAKSHMIPATHY ., KMENDRANATH Attending Kaylee vailable DR MARYCRUZ GUZMAN Primary Care Unavailable MANUEL .MEL Consulting Unavailable KELLEY ., DR OSIRIS Rajput Admitting Unavailable KELLEY ., DR OSIRIS Rajput Attending Unavailable DR MARYCRUZ GUZMAN Primary Care Unavailable BIRCH .ELIESER Consulting Unavailable ALLIE ., DR OSIRIS Rajput Admitting Unavailable KELLEY ., DR OSIRIS Rajput Attending Unavailable DR MARYCRUZ GUZMAN Primary Care Unavailable KELLEY ., DR OSIRIS Rajput Consulting Unavailable WHITMORE, DEON Consulting Unavailable ALLIE ., DR OSIRIS Rajput Admitting Unavailable ALLIE ., DR OSIRIS Rajput Attending Unavailable GÓMEZ, DR MARYCRUZ Moreno Primary Care Unavailable EYAL ., ELIESER Consulting Unavailable ALLIE ., DR OSIRIS Rajput Admitting Unavailable ALLIE ., DR OSIRIS Rajput Attending Unavailable GÓMEZ, DR MARYCRUZ Moreno Primary Care Unavailable BIRCH ., ELIESER Consulting Unavailable Sara Adhikari Admitting Unavailable Marycruz Guzman Primary Care Unavailable Sara Adhikari Attending Unavailable Airam Thomas Attending Unavailable Airam Thomas Admitting Unavailable NON STAFF Primary Care Unavailable Medications Current Medications Medication Drug Class(es) Dates Sig (Normalized) Sig (Original) 3 ML semaglutide 1.34 MG/ML Pen Injector [Ozempic] (3 sources) Start: 05-04-2022 inject 1 mg by subcutaneous injection every week Ozempic (1 MG/DOSE) 4 MG/3ML Inject 1 mg Subcutaneous weekly for 30 day(s) Alternative for Ozempic 2mg on backorder Apr, Active Start: 08-05-2021 inject 0.5 mg by sub cutaneous injection every week Ozempic (1 MG/DOSE) 4 MG/3ML 1mg SQ once weekly for 84 days stop ozempic 0.5mg dose Jul, Active 3 ML semaglutide 2.68 MG/ML Pen Injector [Ozempic] (13 sources) inject 2 mg by subcu taneous injection every week Ozempic (2 MG/DOSE) 8 MG/3ML INJECT 2MG SUBCUTANEOUSLY ONCE WEEKLY for 84 Active inject 2 mg by subcu taneous injection every week Ozempic (2 MG/DOSE) 8 MG/3ML 2mg Subcutaneous once weekly for 84 days Active Accu-Chek Mishel (20 sources) Start: 09-28-2017 Accu-Chek Thad a 1 strip SQ Daily for 90 days Sep, Not-Taking Start: 09-28-2017 Accu-Chek Thad a use with accu-chek lancet device SQ QID Sep, Active Start: 09-28-2017 Accu-Chek Thad a 1 strip SQ Daily for 90 days Sep, Active aspirin 81 mg chewable tablet (17 sources) Platelet Aggregation Inhibitor, Nonsteroidal Anti-inflammatory Drug Aspirin 81 MG as directed Orally Active atorvastatin 40 mg oral tablet (17 sources) HMG-CoA Reductase Inhibitor take 1 tablet by mouth every twenty-four hours Lipitor 40 MG 1 tablet Orally Once a day Active diclofenac sodium 0.01 mg/mg topical gel (17 sources) Nonsteroidal Anti-inflammatory Drug Diclofenac Sodium 1 % 2 grams to affected area Transdermal Twice a day for 30 Active empagliflozin 25 mg oral tablet (20 sources) Sodium-Glucose Cotransporter 2 Inhibitor take 1 tablet by mouth every twenty-four hours Jardiance 25 MG 1 tablet Orally Once a day for 90 days Active ferrous sulfate 325 mg oral tablet (17 sources) take 1 tablet by mouth every twenty-four hours Ferrous Sulfate 325 (65 Fe) MG 1 tablet Orally Once a day Active take 1 tablet by mouth once sharon y Ferrous Sulfate 325 (65 Fe) MG 1 tablet Orally Once a day Active FreeStyle Enedelia 2 Sensor - (18 sources) FreeStyle Enedelia 2 Sensor - USE DIRECTED. CHANGE EVERY 14 DAYS for 84 Active FreeStyle Enedelia 2 Sensor - as directed SQ change every 14 days for 84 days Active FreeStyle Precision Harish Test - (20 sources) FreeStyle Precis ion Harish Test - USE DIRECTED TWICE A DAY for 90 Active FreeStyle Precis ion Harish Test - as directed In Vitro bid for 90 days Active 3 ml insulin aspart, human 1 00 unt/ml pen injector (20 sources) Insulin Analog NovoLOG FlexPen 100 UNIT/ML INJECT 25, 30, 35 UNITS SUBCUTANEOUSLY BASED ON MEAL SIZE BEFORE MEALS. CORRECTIVE SCALE 1:10 BEFORE MEALS 3 TIMES A DAY (AT BEDTIME IF GREATER THAN 200 HALF DOSE) DIRECTED, UP TO 120 UNITS PER DAY. for 90 Active NovoLOG FlexPen 100 UNIT/ML 25,30,35 units ac based on meal size. Corrective scale 1:10 ac tid (hs if >200 half dose) Subcutaneous As Directed for 90 days (expect up to 120 units/day) Active NovoLOG FlexPen 100 UNIT/ML 25,30,35 units ac based on meal size. Corrective scale ac tid (hs if >200 half dose) Subcutaneous As Directed for 90 days (up to max 120 units/day) Active inject 120 [IU] by s ubcutaneous injection at bedtime NovoLOG FlexPen 100 UNIT/ML 25,30,35 units based on meal size before meals with 1:10 scale for a total daily amt of 120 units Subcutaneous AC, HS Active 3 ml insulin degludec 200 unt/ml pen injector (20 sources) Insulin Analog Tresiba FlexTouc h 200 UNIT/ML INJECT 60 UNITS SUBCUTANEOUSLY ONCE DAILY. MAY TITRATE UP TO 70 UNITSPER DAY DIRECTED for 90 Active inject 62 [IU] by shi bcutaneous injection once daily in the morning Tresiba FlexTouch 200 UNIT/ML 62 units Subcutaneous qam (titrate up to 90 units/day) stop lantus Active insulin isophane, human 100 unt/ml injectable suspension (5 sources) Start: 01-21-2023 NovoLIN N ReliOn 100 UNIT/ML 20 units at same time as steroid Subcutaneous as directed for 30 days Jan, Active methylPREDNISolone 4 mg oral tablet (5 sources) Corticosteroid Start: 10-27-2022 Medrol 4 MG as directed Orally for 7 days October, Active mycophenolate mofetil 250 mg oral capsule (17 sources) take 4 capsules by mouth every twelve hours CellCept 250 MG 4 tablets Orally bid Active oxyCODONE hydrochloride 5 mg oral tablet (17 sources) Opioid Agonist take 1 tablet by mouth every six hours oxyCODONE HCl 5 MG 1 tablet as needed Orally every 6 hrs Active Ozempic (2 MG/DOSE) 8 MG/3ML (1 source) Start: 12-04-2021 inject 1 mg by subcutaneous injection every week Ozempic (2 MG/DOSE) 8 MG/3ML 2mg Subcutaneous once weekly for 84 days stope ozempic 1mg Nov, Active tacrolimus 1 mg oral capsule (17 sources) Calcineurin Inhibitor Immunosuppressant take 2 tablets by mouth in the morning, then take 1 tablet by mouth twice daily in the evening Tacrolimus 1 MG 2 tablets in am and 1 in pm Orally Twice a day Active Vitamin D3 2000 Unit (17 sources) take 1 capsule by mouth once daily Vitamin D3 2000 Unit 1 capsule Orally Once a day Active Completed/Discontinued Medications Medication Drug Class(es) Dates Sig (Normalized) Sig (Original) FreeStyle Enedelia 14 Day Otley - (8 sources) Start: 08-29-2020 FreeStyle Enedelia 14 Day Otley - as directed Daily for 365 days E11.Aug, Not-Taking Start: 08-29-2020 FreeStyle Libr e 14 Day Otley - as directed Daily for 365 days E11Aug, Active FreeStyle Enedelia 14 Day Senso r - (8 sources) FreeStyle Enedelia 14 Day Sensor - as directed SQ change every 14 days Not-Taking FreeStyle Enedelia 14 Day Sensor - as directed SQ change every 14 days Active 0.25 mg, 0.5 mg dose 1.5 ml semaglutide 1.34 mg/ml pen injector (8 sources) Ozempic (0.25 or 0.5 MG/DOSE) 2 MG/1.5ML INJECT 0.5MG SUBCUTANEOUSLYONCE WEEKLY for 84 Not-Taking triamcinolone acetonide 40 mg/ml injectable suspension (20 sources) Corticosteroid Start: 07-22-2022 Kenalog-40 Jul, 40 m g Start: 07-22-2022 Kenalog-40 Jul, 20 mg Problems Active Problems Problem Classification Problem Date Documented Date Episodic/Chronic Administrative/socia l admission (20 sources) Dietary management surveillance; Translations: [Dietary counseling and surveillance] Onset: 08-05-2021 Resolved: 12-04-2021 Episodic Chronic kidney disease (6 sources) Kidney transplant status Onset: 08-05-2021 Resolved: 12-04-2021 Chronic Diabetes mellitus with complications (20 sources) Disorder of kidney due to diabetes mellitus; Translations: [Type 2 diabetes mellitus with diabetic nephropathy] Onset: 07-15-2021 Resolved: 12-04-2021 Chronic Diabetes mellitus without complication (1 source) Type 2 diabetes mellitus without complications; Translations: [TYPE 2 DM WITHOUT COMPLICATIONS] Onset: 10-10-2022 Chronic Disorders of lipid metabolism (20 sources) Hyperlipidemia; Translations: [Hyperlipidemia, unspecified] Onset: 08-05-2021 Resolved: 12-04-2021 Chronic Essential hypertension (20 sources) Hypertensive disorder; Translations: [Essential (primary) hypertension] Onset: 08-05-2021 Resolved: 12-04-2021 Chronic Genitourinary symptoms and ill-defined conditions (1 source) Proteinuria, unspecified Episodic Menopausal disorders (17 sources) Menopause present; Translations: [Menopausal and female climacteric states] Chronic Nutritional deficiencies (20 sources) Vitamin D deficiency; Translations: [Vitamin D deficiency, unspecified] Onset: 08-05-2021 Resolved: 12-04-2021 Chronic Osteoarthritis (8 sources) Arthritis of hand; Translations: [Primary osteoarthritis, right hand] Chronic Other acquired deformities (20 sources) Spondylolisthesis; Translations: [Spondylolisthesis, lumbar region] Episodic Other acquired deformities (17 sources) Lumbar spondylolisthesis; Translations: [Spondylolisthesis, lumbar region] Episodic Other aftercare (20 sources) Long-term current use of insulin; 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] Episodic Other aftercare (7 sources) 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; 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] Onset: 08-05-2021 Resolved: 12-04-2021 Episodic Other connective tissue disease (7 sources) Synovitis; Translations: [Synovitis and tenosynovitis, unspecified] Episodic Other connective tissue disease (1 source) Synovitis and tenosynovitis, unspecified Episodic Other connective tissue disease (1 source) Trigger thumb, left thumb Episodic Other connective tissue disease (1 source) Trigger thumb, right thumb Episodic Other connective tissue disease (1 source) Trigger finger, right ring finger Episodic Other connective tissue disease (1 source) Pain in right hand Episodic Other connective tissue disease (1 source) Pain in left hand Episodic Other endocrine disorders (6 sources) Hypoglycemia; Translations: [Hypoglycemia, unspecified] Chronic Other endocrine disorders (4 sources) Hypoglycemia, unspecified; Translations: [Hypoglycemia] Chronic Other nervous system disorders (17 sources) Carpal tunnel syndrome of right wrist; Translations: [Carpal tunnel syndrome, right upper limb] Chronic Other nervous system disorders (1 source) Carpal tunnel syndrome, right upper limb Chronic Other nervous system disorders (4 sources) Other specified mononeuropathies of bilateral lower limbs; Translations: [OTH SPEC MONONEUROPATH TRISTIAN LOW LIMB] Onset: 10-06-2022 Chronic Other nervous system disorders (1 source) Other chronic pain; Translations: [OTHER CHRONIC PAIN] Onset: 09-30-2022 Chronic Other nervous system disorders (1 source) Polyneuropathy, unspecified; Translations: [POLYNEUROPATHY UNSPECIFIED] Onset: 11-24-2021 Chronic Other non-traumatic joint disorders (1 source) Pain in right wrist Episodic Other nutritional; endocrine; and metabolic disorders (20 sources) Obesity; Translations: [Obesity, unspecified] Chronic Other nutritional; endocrine; and metabolic disorders (20 sources) Obese class II; Translations: [Body mass index (BMI) 39.0-39.9, adult] Chronic Other nutritional; endocrine; and metabolic disorders (17 sources) Simple obesity ; Translations: [Other obesity due to excess calories] Chronic Other nutritional; endocrine; and metabolic disorders (17 sources) Body mass index 40+ - severely obese; Translations: [Body mass index (BMI) 40.0-44.9, adult] Chronic Other nutritional; endocrine; and metabolic disorders (4 sources) Body mass index (BMI) 38.0-38.9, adult; Translations: [BMI 38.0-38.9,adult] Onset: 12-04-2021 Resolved: 12-04-2021 Chronic Other nutritional; endocrine; and metabolic disorders (1 source) Body mass index (BMI) 39.0-39.9, adult Onset: 08-05-2021 Resolved: 08-05-2021 Chronic Other nutritional; endocrine; and metabolic disorders (2 sources) Body mass index (BMI) 37.0-37.9, adult Chronic Other nutritional; endocrine; and metabolic disorders (1 source) Obesity, unspecified; Translations: [Obesity, unspecified] Chronic Other skin disorders (1 source) Localized swelling, mass and lump, right upper limb Episodic Residual codes; unclassified (17 sources) Noncompliance with treatment; Translations: [Patient's noncompliance with other medical treatment and regimen] Episodic Residual codes; unclassified (1 source) Other specified postprocedural states Episodic Spondylosis; intervertebral disc disorders; other back problems (5 sources) Spondylosis without myelopathy or radiculopathy, lumbar region; Translations: [SPONDYLS W/O MYELO-/RADICULOP LUMB] Onset: 01-22-2022 Chronic Spondylosis; intervertebral disc disorders; other back problems (14 sources) Spinal stenosis, lumbar region without neurogenic claudication; Translations: [Intervertebral disc disorders with radiculopathy, lumbar region] Onset: 01-06-2022 Episodic Unclassified (3 sources) LOW BACK PAIN, UNSPECIFIED; Translations: [LOW BACK PAIN, UNSPECIFIED] Onset: 07-03-2022 Unclassified (1 source) Pain in right hand; Translations: [Pain in right hand] Onset: 07-22-2022 Past or Other Problems Problem Classification Problem Date Documented Da te Episodic/Chronic Unclassified (1 source) LOW BACK PAIN, UNSPECIFIED; Translations: [LOW BACK PAIN, UNSPECIFIED] Onset: 09-24-2022 Results Test Name Value Interpretation Reference Range Facility A1C HEMOGLOBINon 05-13-2023 HbA1c (Bld) [Mass fraction] 8.4 % [facility] Other Glucose - FINGER [facility]ICKon Glucose [Mass/Vol] 167 mg/dL [facility] Other HbA1c (Bld) [Mass fraction]o n 05-13-2023 A1C HEMOGLOBIN [facility] Other A1C HEMOGLOBINon 01-21-2023 HbA1c (Bld) [Mass fraction] 8.1 % [facility] Other Glucose - FINGER STICKon Glucose [Mass/Vol] 117 mg/dL [facility] Other HbA1c (Bld) [Mass fraction]o n 01-21-2023 A1C HEMOGLOBIN [facility] Other POINT OF CARE GLUCOSEon 09-13 Glucose [Mass/Vol] 185 mg/dL Critically high 74-106 [facility] Comment on above: Performed By: #### P OCGLUC #### [facility] [address] [place] [address] Dr. Payam Frazier XR hand RT min 3V*on 023 XR hand RT min 3V* [facility] [place] [address] [place] [address] XRay Report Signed Patient: Lisy Flores MR#: [id number] : 1955 Acct:[id number] Age/Sex: 66 / F ADM Date: 07/22/22 Loc: [facility] [place] Room: Type: [facility] Attending Dr: Sara Adhikari MD Copies to: Sara Adhikari MD Ordering Provider: Sara Adihkari MD Date of Service: 07/22/22 XR/XR hand RT min 3V*: PAIN 4 viewsright hand plain film COMPARISON:08/01/2019 HISTORY:Right hand pain. Mass in the fourth digit Moderate interphalangeal degeneration. No bony lesion. Adequate bony alignment. No fracture. No soft tissue calcification. XR/XR hand RT min 3V* IMPRESSION:Similar degenerative change. Impression dictated by: Roberto Pritchard M.D.07/22/2022 4:26 PM Dictation Location: [place] [address] Transcribed By: [facility] 07/22/221625 Dictated By: Roberto Pritchard DO 07/22/221624 Signed By: 07/22/22 [address] [facility] XR hand RT min 3V* [facility] Other XR hand RT min 3V* [facility] Other XR hand RT min 3V* [address] [place] [address] [facility] Other XR hand RT min 3V* [place] [address] [facility] Other XR hand RT min 3V* XRay Report [facility] Other XR hand RT min 3V* Signed [facility] Other XR hand RT min 3V* Patient: Lisy Flores MR#: [id number] [facility] Other XR hand RT min 3V* 3326 [facility] Other XR hand RT min 3V* : 1955 Acct:[id number] [facility] Other XR hand RT min 3V* Age/Sex: 66 / F ADM Date: 07/22/22 [facility] Other XR hand RT min 3V* Loc: [facility] Room: Type: [facility] Other XR hand RT min 3V* Attending Dr: Sara Adhikari MD [facility] Other XR hand RT min 3V* Copies to: Sara Adhikari MD [facility] Other XR hand RT min 3V* Ordering Provider: Sara Adhikari MD [facility] Other XR hand RT min 3V* Date of Service: 07/22/22 [facility] Other XR hand RT min 3V* XR/XR hand RT min 3V*: PAIN [facility] Other XR hand RT min 3V* 4 viewsright hand plain film [facility] Other XR hand RT min 3V* COMPARISON:08/01/2019 [facility] Other XR hand RT min 3V* HISTORY:Right hand pain. Mass in the fourth digit [facility] Other XR hand RT min 3V* Moderate interphalangeal degeneration. No bony lesion. Adequate bony alignment. No fracture. No soft [facility] Other XR hand RT min 3V* tissue calcification. [facility] Other XR hand RT min 3V* XR/XR hand RT min 3V* [facility] Other XR hand RT min 3V* IMPRESSION:Similar degenerative change. [facility] Other XR hand RT min 3V* Impression dictated by: Roberto Pritchard M.D.07/22/2022 4:26 PM [facility] Other XR hand RT min 3V* Dictation Location: [place] [address] [facility] Other XR hand RT min 3V* Transcribed By: ZEHRA 07/22/22 162 [facility] Other XR hand RT min 3V* Dictated By: Roberto Pritchard DO 07/22/22 1625 [facility] Other XR hand RT min 3V* Signed By: [facility] Other XR hand RT min 3V* 07/22/22 1626 [facility] [employer] Other A1C HEMOGLOBINon 07-14-2022 HbA1c (Bld) [Mass fraction] 7.9 % [facility] [employer] [facility] Other Glucose - FING[facility] Glucose [Mass/Vol] 164 mg/dL [facility] [employer] Other HbA1c (Bld) [Mass fraction]o n 07-14-2022 A1C HEMOGLOBIN [facility] Other A1C HEMOGLOBINon 03-11-2022 HbA1c (Bld) [Mass fraction] 8.0 % [facility] Other Comprehensive Metabolic Pane lacey 03-11-2022 Albumin [Mass/Vol] 3.122664 g/dL Normal 3.2-5.5 g/dL [facility] [employer] [facility] Other Albumin/Globulin [Mass ratio] 1.5 {ratio} [facility] [employer] Other ALP [Catalytic activity/Vol] 102 U/L High 32-92 U/L [facility] [employer] Other ALT [Catalytic activity/Vol] 23 U/L Normal 10-60 U/L [facility] [employer] [facility] Other AST [Catalytic activity/Vol] 20 U/L Normal 10-42 U/L [facility] [employer] Other Bilirubin [Mass/Vol] 0.8974822 mg/dL Normal 0.3-1.2 mg/dL [facility] [employer] Other Calcium [Mass/Vol] 9.5280442 mg/dL Normal 8.2-10.2 mg/ dL [facility] Other Chloride [Moles/Vol] 102 mmol/L Normal 95-114 mmol/L [facility] [employer] Other CO2 [Moles/Vol] 24.93139695 mmol/L Normal 22.0-3 0.0 mmol/L [facility] Other Creatinine [Mass/Vol] 0.60231106 mg/dL Normal 0.44-1.03 mg/dL [facility] Other Glucose [Mass/Vol] 138 mg/dL High 70-100 mg/dL [facility] Other Potassium [Moles/Vol] 4.57681611 mmol/L Normal 3.5-5.1 mmol/L [facility] Other Protein [Mass/Vol] 6.487366 g/dL Normal 6.1-7.9 g/dL [facility] Other Sodium [Moles/Vol] 139 mmol/L Normal 136-146 mmol/L No rt [facility] Other Urea nitrogen [Mass/Vol] 13 mg/dL Normal 9-23 mg/dL [facility] Other Comprehensive Metabolic Panel > 60 [facility] Other Comprehensive Metabolic Panel 2.5 g/dL [facility] Other Glucose - FINGER [facility]ICKon Glucose [Mass/Vol] 158 mg/dL [facility] Other HbA1c (Bld) [Mass fraction]o n 03-11-2022 A1C HEMOGLOBIN [facility] Other POINT OF CARE GLUCOSEon 12-13 Glucose [Mass/Vol] 148 mg/dL Critically high 74-106 [facility] Comment on above: Performed By: #### P OCGLUC #### [facility] [address] [place] [address] [address] Payam Frazier A1C HEMOGLOBINon 12-04-2021 HbA1c (Bld) [Mass fraction] 8.4 % [facility] Other Glucose - [facility] Glucose [Mass/Vol] 101 mg/dL [facility] Other HbA1c (Bld) [Mass fraction]o n 12-04-2021 A1C HEMOGLOBIN [facility] Other A1C HEMOGLOBINon 08-05-2021 HbA1c (Bld) [Mass fraction] 7.9 % [facility] Other Glucose - FING[facility]on Glucose [Mass/Vol] 158 mg/dL [facility] Other HbA1c (Bld) [Mass fraction]o n 08-05-2021 A1C HEMOGLOBIN [facility] Other Vital Signs Date Time Vital Sign Value Performing Clinician Facility 05-13-2023 10:15-0500 Body height 162.56 cm Tondra Mapus Other [facility] Other 05-13-2023 10:15-0500 Body mass index (BMI) [Ratio] 37.95 kg/m2 Tondra Mapus Other [facility] Other 05-13-2023 10:15-0500 Body weight 100.29 kg Tondra Mapus Other [facility] Other 05-13-2023 10:15-0500 Diastolic blood pressure 77 mm[Hg] Tondra Mapus Other [facility] Other 05-13-2023 10:15-0500 Respiratory rate 18 /min Tondra Mapus Other [facility] Other 05-13-2023 10:15-0500 SaO2% (BldA) [Mass fraction] 95 % Tondra Mapus Other [facility] Other 05-13-2023 10:15-0500 Systolic blood pressure 147 mm[Hg] Tondra Mapus Other [facility] Other 01-21-2023 14:45-0400 Body height 162.56 cm Tondra Mapus Other [facility] Other 01-21-2023 14:45-0400 Body mass index (BMI) [Ratio] 37.35 kg/m2 Tondra Mapus Other [facility] Other 01-21-2023 14:45-0400 Body weight 98.7 kg Tondra Mapus Other [facility] Other 01-21-2023 14:45-0400 Diastolic blood pressure 80 mm[Hg] Tondra Mapus Other [facility] Other 01-21-2023 14:45-0400 Respiratory rate 18 /min Tondra Mapus Other [facility] Other 01-21-2023 14:45-0400 SaO2% (BldA) [Mass fraction] 96 % Tondra Mapus Other [facility] Other 01-21-2023 14:45-0400 Systolic blood pressure 124 mm[Hg] Tondra Mapus Other [facility] Other 07-22-2022 15:30-0500 Body height 162.56 cm Sara Somaeverett Other [facility] Other 07-22-2022 15:30-0500 Body mass index (BMI) [Ratio] 38.33 kg/m2 Sara Somaeverett Other [facility] Other 07-22-2022 15:30-0500 Body weight 101.29 kg Saragraciela Adhikari Other [facility] Other 07-14-2022 12:00-0500 Body height 162.56 cm Tondra Mapus Other [facility] Other 07-14-2022 12:00-0500 Body mass index (BMI) [Ratio] 38.33 kg/m2 Tondra Mapus Other [facility] Other 07-14-2022 12:00-0500 Body weight 101.29 kg Tondra Mapus Other [facility] Other 07-14-2022 12:00-0500 Diastolic blood pressure 76 mm[Hg] Tondra Mapus Other [facility] Other 07-14-2022 12:00-0500 Respiratory rate 18 /min Tondra Mapus Other [facility] Other 07-14-2022 12:00-0500 SaO2% (BldA) [Mass fraction] 98 % Tondra Mapus Other [facility] Other 07-14-2022 12:00-0500 Systolic blood pressure 144 mm[Hg] Tondra Mapus Other [facility] Other 03-11-2022 12:00-0400 Body height 162.56 cm Tondra Mapus Other [facility] Other 03-11-2022 12:00-0400 Body mass index (BMI) [Ratio] 38.93 kg/m2 Tondra Mapus Other [facility] Other 03-11-2022 12:00-0400 Body weight 102.88 kg Tondra Mapus Other [facility] Other 03-11-2022 12:00-0400 Diastolic blood pressure 67 mm[Hg] Tondra Mapus Other [facility] Other 03-11-2022 12:00-0400 Respiratory rate 18 /min Tondra Mapus Other [facility] Other 03-11-2022 12:00-0400 SaO2% (BldA) [Mass fraction] 98 % Tondra Mapus Other [facility] Other 03-11-2022 12:00-0400 Systolic blood pressure 106 mm[Hg] Tondra Mapus Other [facility] Other 12-04-2021 11:15-0400 Body height 162.56 cm Tondra Mapus Other [facility] Other 12-04-2021 11:15-0400 Body mass index (BMI) [Ratio] 38.79 kg/m2 Tondra Mapus Other [facility] Other 12-04-2021 11:15-0400 Body weight 102.51 kg Tondra Mapus Other [facility] Other 12-04-2021 11:15-0400 Diastolic blood pressure 80 mm[Hg] Tondra Mapus Other [facility] Other 12-04-2021 11:15-0400 Respiratory rate 20 /min Tondra Mapus Other [facility] Other 12-04-2021 11:15-0400 SaO2% (BldA) [Mass fraction] 96 % Tondra Mapus Other [facility] Other 12-04-2021 11:15-0400 Systolic blood pressure 119 mm[Hg] Tondra Mapus Other [facility] Other 08-05-2021 10:45-0500 Body height 162.56 cm Tondra Mapus Other [facility] Other 08-05-2021 10:45-0500 Body mass index (BMI) [Ratio] 39.3 kg/m2 Tondra Mapus Other [facility] Other 08-05-2021 10:45-0500 Body weight 103.87 kg Tondra Mapus Other [facility] Other 08-05-2021 10:45-0500 Diastolic blood pressure 81 mm[Hg] Tondra Mapus Other [facility] Other 08-05-2021 10:45-0500 Respiratory rate 20 /min Tondra Mapus Other [facility] Other 08-05-2021 10:45-0500 SaO2% (BldA) [Mass fraction] 95 % Tondra Mapus Other [facility] Other 08-05-2021 10:45-0500 Systolic blood pressure 124 mm[Hg] Tondra Mapus Other [facility] Other Encounters Encounter Date Encounter Type Care Provider Facility Start: 05-13-2023 (DM) Diabetes Tondra Mapus [facility] Start: 05-13-2023 End: 05-13-2023 ambulatory Tondra K Mapus [facility] Other Start: 03-03-2023 End: 03-03-2023 ambulatory Tondra Mapus Other [facility] Other Start: 03-03-2023 Telephone encounter Tondra Mapus [facility] Start: 01-26-2023 End: 01-26-2023 ambulatory Tondra Mapus Other [facility] Other Start: 01-26-2023 Telephone encounter Tondra Mapus [facility] Start: 01-22-2023 End: 01-22-2023 ambulatory Tondra Mapus Other [facility] Other Start: 01-22-2023 Telephone encounter Tondra Mapus [facility] Start: 01-21-2023 (DM) Diabetes Tondra Mapus [facility] Start: 01-21-2023 End: 01-21-2023 ambulatory Tondra Mapus Other [facility] Other Start: 10-23-2022 End: 10-24-2022 ambulatory NARENDRANATH LAKSHMIPATHY . Facility:[facility] Start: 10-13-2022 ambulatory NARENDRANATH LAKSHMIPATHY . Facility:[facility] Start: 10-06-2022 End: 10-06-2022 ambulatory NARENDRANATH LAKSHMIPATHY . Facility:[facility] Start: 09-29-2022 End: 09-30-2022 ambulatory NARENDRANATH LAKSHMIPATHY . Facility:[facility] Start: 09-24-2022 End: 09-25-[address] MARYCRUZ GUZMAN Facility:[facility] Start: 07-22-2022 End: 07-22-2022 ambulatory Sara Adhikari [facility] Other Start: 07-22-2022 Office outpatient visit 25 minutes Sara Adhikari [facility] Start: 07-14-2022 (DM) Diabetes Tondra Mapus [facility] Start: 07-14-2022 End: 07-14-2022 ambulatory Tondra Mapus Other [facility] Other Start: 06-25-2022 End: 06-26-[address] OSIRIS KELLEY . Facility:[facility] Start: 05-18-2022 End: 05-18-2022 ambulatory Tondra Mapus Other [facility] Other Start: 05-18-2022 Telephone encounter Tondra Mapus [facility] Start: 05-04-2022 End: 05-04-2022 ambulatory Tondra Mapus Other [facility] Other Start: 05-04-2022 Telephone encounter Tondra Mapus [facility] Start: 04-27-2022 End: 04-27-2022 ambulatory Tondra Mapus Other [facility] Other Start: 04-27-2022 Telephone encounter Tondra Mapus [facility] Start: 03-11-2022 (DM) Diabetes Tondra Mapus [facility] Start: 03-11-2022 End: 03-11-2022 ambulatory Tondra Mapus Other [facility] Other Start: 03-11-2022 Telephone encounter Tondra Mapus [facility] Start: 01-22-2022 End: 01-23-[address] OSIRIS KELLEY . Facility:[facility] Start: 01-06-2022 End: 01-06-[address] OSRIIS KELLEY . Facility:[facility] Start: 12-04-2021 (DM) Diabetes Tondra Mapus [facility] Start: 12-04-2021 End: 12-04-2021 ambulatory Tondra Mapus Other [facility] Other Start: 11-20-2021 End: 11-21-[address] OSIRIS KELLEY . Facility: Start: 08-05-2021 (DM) Diabetes Tondra Mapus [facility] Start: 08-05-2021 End: 08-05-2021 ambulatory Tondra Mapus Other [facility] Other Start: 08-05-2021 Telephone encounter Tondra Mapus [facility] Start: 07-16-2021 End: 07-16-2021 ambulatory Tondra Mapus Other [facility] Other Start: 07-16-2021 Telephone encounter Tondra Mapus [facility] Start: 07-15-2021 End: 07-15-2021 ambulatory Tondra Mapus Other [facility] Other Start: 07-15-2021 Telephone encounter Tondra Mapus [facility] Procedures Date Procedure Procedure Detail Performing Clinician History of renal transplant Tondra Mapus Other Immunizations Immunization Date Immunization Notes Care Provider Denny cole 09-06-2020 COVID-19 Vaccine Moderna - Documentation Purposes Only Tondra Mapus Other [facility] Other 08-09-2020 COVID-19 Vaccine Moderna - Documentation Purposes Only Tondra Mapus Other [facility] Other 04-24-2020 influenza, high dose seasonal, preservative-free Tondra Mapus Other [facility] Other Payers Date Payer Category Payer Self-pay 1960 Medicare [id number] 2. [id number] 1954 Unknown [id number] 2.16.84 [id number] 1954 Unknown [id number] 2.16.84 [id number] 1954 Unknown [id number] 2.16.84 [id number] 1954 Unknown [id number] 2.16.84 [id number] 1954 Unknown [id number] 2.16.84 [id number] 1954 Unknown [id number] 2.16.84 [id number] 1954 Unknown [id number] 2.16.84 [id number] 1954 Unknown [id number] 2.16.84 [id number] 1954 Unknown [id number] 2.16.84 [id number] Unknown [id number] 2.16.8 [id number] Unknown [id number] 2.16.8 [id number] Social History Date Type Detail Facility Unknown if ever smoked [facility] Other Sex Assigned At Sex Assigned At Bir [facility] Other Medical Equipment Procedure Code Equipment Code Equipment Original Text Equi pment Identifier Dates BD Pen Needle Mi ni U/F 31G X 5 MM Clinical Notes 04-14-2020 to 06-02-2023 Note Date & Type Note Facility 06-02-2023 Note HNO ID: [id number] Author: Alondra Boggs PA-C Service: ? Author Type: Physician Improvement Coordinator Type: Progress Notes Filed: 06/02/2023 4:31 PM Note Text: Per Triage: Lisy Flores is a 67 year old female that requests evaluation of spine. Per review, they have symptoms of back pain, bilateral leg pain. Neck pain. Difficulty walking. Balance issues. Numbness in legs and feet. Weakness Request: 1st available Referring provider: Qiana Chiu NP Patient out of state: no 2nd opinion: no Prior spine surgery: no CMT: PT Injections Baclofen Gabapentin Percocet Studies (Reports unless indicated) MRI lumbar spine report 05/18/2023: Moderate to severe L2-3, L3-4 and L4-5 spinal canal stenosis Disposition: Based on triage, recommend patient be scheduled with surgeon first available for surgical eval . If patient would like sooner appointment, is it okay to offer appointment with spine surgical MADHURI No (If patient is okay to see first available surgeon, please specify dx to aid in appropriate scheduling, such as ?cervical degenerative disease,? ?scoliosis?) If VV, please advise pt to send or upload relevant outside images prior to appt so they will be available for review during the appt If office visit, please advise pt to hand carry relevant images on CD to the appt so they can be reviewed during the appt Alondra Boggs PA-C [facility] 05-31-2023 Note HNO ID: [id number] Author: Alycia Red Service: ? Author Type: ? Type: Progress Notes Filed: 06/02/2023 4:31 PM Note Text: Patient name: Lisy Flores Are you being referred by a [facility] Provider or Pain Management Provider at [facility]? No If answer is YES please schedule directly with surgeon, triage does not need to be completed. Is this a self-referral No If not, who is the Referring Provider Qiana Chiu NP Is this a 2nd opinion from another spine surgeon? No Were you offered surgery? No MRI/CT/myelogram within 12 months? Yes If NO , please refer to medical spine or PCP to complete above imaging, triage does not need to be completed If YES,? please ask for the name/address of the facility where the MRI/CT/myelogram was completed: The [address] [address] MRI/CT/myelogram viewable in Epic: No If not, please provide [phone] to fax in imaging reports for review. Also, please inform patient to hand carry imaging disc to appointment. XR (spine) within 12 months: No If YES,? please ask for the name/address of the facility where the XR was completed: Dr. Nogueira's patients: Have you had previous EMG/Nerve Conduction Study, Ultrasound, or MRI for these same symptoms? If YES,? please ask for the name/address of the facility where they were completed: Requested provider (First and Last name): unknown Are you interested in a virtual visit if offered? 1. Where are you having symptoms related to this visit? Lumbar Spine Back pain Yes Leg pain Yes bilateral Arm pain No Neck pain Yes 2. Are you having any of the following symptoms: Difficulty walking Yes balance issue Numbness Yes legs, feet Weakness Yes Trouble using your hands? No 3. Have you had any injections or physical therapy in the last 12 months? Yes If YES then please ask for the name/address of the facility where the injections and/or physical therapy was completed Injection: [facility] [address] [place] [address] PT: [facility] [address] [place] [address] Have you tried any other kinds of non-surgical treatments in the last 12 months? (For example: NSAIDS, muscle relaxants, analgesics, oral steroids, Chiropractor, Acupuncture): Baclofen, Gabapentin 4. Are you currently taking daily prescribed narcotic medications for your current symptoms (For example Oxycodone, Hydrocodone, Tramadol, Morphine, Other)? Yes Percocet 5. Have you had previous spinal surgery for this same symptoms? No If YES? please ask for the name of facility/address of where the surgery was completed: Additional Comments [phone] [facility] 05-13-2023 Evaluation note Encounter Date Diagnosis Assessment Notes Apr, Type 2 diabetes mellitus with hyperglycemia (ICD-10 - E11.65) Diabetes (type 2) material was published 1. Uncontrolled, a Type 2 diabetes with A1c of 8.4% 2. Blood glucose levels above target. According to Sutus 2 cgm download 04/30/23-: Avg glucose 167. >250-5%, >180-34%, 70-180-58%, <70-3%, <54-0%. Cv 31.7%. Reviewed download with pt, glucose undertarget from late bolus. Reviewed with pt importance of prebolus 15 minutes ac for improved postprandial glycemia and to reduce risk of hypoglycemia. Reviewed with pt importance of using meal/corrective scale ac, hs. Reviewed with pt how to titrate basal/bolus insulin according to fasting am/ac glucose patterns. Pt verbalizes understanding. Discussed with pt insulin pump, declines at this time. 3. Patient is alert, oriented and receptive to making changes or counseling. Notes: Seen for an assessment of current glucose pattern, changes in treatment plan, with this time spent in counseling and coordination of care related to diabetes, risks, and benefits of treatment, medications, and side effects. TOPICS REVIEWED: 1. Time was spent reviewing: a. Basic concepts of diabetes, progressive beta cell , concepts of basal/bolus/cor rective insulin requirements. Basal: The goal is fasting blood glucose of 90-130mg. IF fasting blood glucose starts to run under 100mg 3x's/ week, decrease dose by 10%. Bolus: The goal is to hold the blood glucose level steady meal to meal. If pt. is going to have increased physical activity after a meal, decrease the schedule meal dose prior to the activity by 30-50%. If pt. skips a meal do not take this dose. Correction: The goal is to correct an elevated glucose back into the 100-150mg range b. Nutrition: Concepts of healthy diet, encouraged to decrease saturated fat in diet and increase non-starchy vegetables and fruits in diet. BMI: Pt. needs to select one small change to decrease caloric intake or increase physical activity to help decrease weight. c. Correct treatment of hypoglycemia, carry a glucose source at all times on your person, in vehicles, and at bedside. Can use glucose tablets/4, four ounces of pop or juice equal to 15 G of carbohydrate. Blood glucose should be 100 mg/dl or higher when driving. d. ADA glucose goals for age and medical complexity reviewed e. Patient questions addressed 2. Activity/exerci se: Encouraged to start any form of physical activity. Start low level and increase slowly to a minimal goal of 150 minutes/week. Limit activity to what is allowed by other issues such as cardiac, pulmonary or orthopedic restrictions. 3. Standards of care: Reminded to have an annual dilated eye exam, A1C every 3 months, urine testing for microalbumin once/year, check feet daily and report any cuts or sores that do not appear to be healing. 4. Meter: Plan to check blood glucose: Please check blood glucose levels 4 times/day. Back to back meals reveal effectiveness of bolus dosing. The blood glucose data is used to determine insulin doses and confirm symptoms for hypoglycemia and hyperglcyemia. The blood glucose data is used to determine insulin doses, and confirm symptoms for hypoglycemia and hyperglcyemia. 5. [facility]. Contact office if any issues or concerns with patterns of hypoglycemia, hyperglycemia, or diabetes medication issues. 6. Prescriptions: aarseli Sepulveda, novolog sent to [facility]. 7. Prescriptions will not be filled unless you are compliant with follow up appointments or have a follow up appointment scheduled as ordered by your provider. Refills should be requested at the time of your visit. Apr, Dietary counseling and surveillance (ICD-10 - Z71.3) Maintaining a healthful weight material was published Apr, Hyperlipidemia (ICD-10 - E78.5) Managing your cholesterol material was published 02/2023 ldl 91, trig 387, on statin. Apr, HTN (hypertension) (ICD-10 - I10) Managing high blood pressure material was published Apr, halfway current use of insulin (ICD-10 - Z79.4) Apr, Kidney transplant status (ICD-10 - Z94.0) keep f/u with nephrology/[facility] team Apr, Hypoglycemia (ICD-10 - E16.2) Low blood glucose and diabetes material was published Apr, BMI 37.0-37.9, adult (ICD-10 - Z68.37) Eating healthy: tips to make it easier material was published 6 pound weight loss from last visit, continue with weight loss efforts Apr, Albuminuria (ICD-10 - R80.9) 03/06 m/a cr ratio 88. Reviewed importance of glucose/bp control to prevent further nephropathy [facility] Other 08-11-2023 Evaluation note* Encounter Date Diagnosis Assessment Notes Treatment Notes Treatment Clinical Notes Jan, Type 2 diabetes mellitus with hyperglycemia (ICD-10 - E11.65) [facility] Other 08-10-2023 Evaluation note* Encounter Date Diagnosis Assessment Notes Treatment Notes Treatment Clinical Notes Jan, Type 2 diabetes mellitus with hyperglycemia (ICD-10 - E11.65) Diabetes (type 2) material was published 1. Uncontrolled, a Type 2 diabetes with A1c of 8.1 % 2. Blood glucose levels above target. Pt did not bring enedelia reader for download. Pt going to be starting steroid dose pack. Recommend nph 20 units at same time as steroid. Reviewed with pt importance of using meal/corrective scale ac, hs. Reviewed with pt how to titrate basal/bolus insulin according to fasting am/ac glucose patterns. Reviewed with pt importance of bringing enedelia therapist radiation to all apts. Pt verbalizes understanding. 3. Patient is alert, oriented and receptive to making changes or counseling. Notes: Seen for an assessment of current glucose pattern, changes in treatment plan, with this time spent in counseling and coordination of care related to diabetes, risks, and benefits of treatment, medications, and side effects. TOPICS REVIEWED: 1. Time was spent reviewing: a. Basic concepts of diabetes, progressive beta cell , concepts of basal/bolus/correc tive insulin requirements. Basal: The goal is fasting blood glucose of 90-130mg. IF fasting blood glucose starts to run under 100mg 3x's/ week, decrease dose by 10%. Bolus: The goal is to hold the blood glucose level steady meal to meal. If pt. is going to have increased physical activity after a meal, decrease the schedule meal dose prior to the activity by 30-50%. If pt. skips a meal do not take this dose. Correction: The goal is to correct an elevated glucose back into the 100-150mg range b. Nutrition: Concepts of healthy diet, encouraged to decrease saturated fat in diet and increase non-starchy vegetables and fruits in diet. BMI: Pt. needs to select one small change to decrease caloric intake or increase physical activity to help decrease weight. c. Correct treatment of hypoglycemia, carry a glucose source at all times on your person, in vehicles, and at bedside. Can use glucose tablets/4, four ounces of pop or juice equal to 15 G of carbohydrate. Blood glucose should be 100 mg/dl or higher when driving. d. ADA glucose goals for age and medical complexity reviewed e. Patient questions addressed 2. Activity/exercise: Encouraged to start any form of physical activity. Start low level and increase slowly to a minimal goal of 150 minutes/week. Limit activity to what is allowed by other issues such as cardiac, pulmonary or orthopedic restrictions. 3. Standards of care: Reminded to have an annual dilated eye exam, A1C every 3 months, urine testing for microalbumin once/year, check feet daily and report any cuts or sores that do not appear to be healing. 4. Meter: Plan to check blood glucose: Please check blood glucose levels 4 times/day. Back to back meals reveal effectiveness of bolus dosing. The blood glucose data is used to determine insulin doses and confirm symptoms for hypoglycemia and hyperglcyemia. The blood glucose data is used to determine insulin doses, and confirm symptoms for hypoglycemia and hyperglcyemia. 5. [facility]. Contact office if any issues or concerns with patterns of hypoglycemia, hyperglycemia, or diabetes medication issues. 6. Prescriptions: Rochellelon, please send refills of Jardiance, Novolog, Tresiba and Ozempic. NPH novolin relion sent to [facility]- sample u30 pen needles given today- reviewed with pt how to use syringe/vial. 7. Prescriptions will not be filled unless you are compliant with follow up appointments or have a follow up appointment scheduled as ordered by your provider. Refills should be requested at the time of your visit. Jan, Dietary counseling and surveillance (ICD-10 - Z71.3) Maintaining a healthful weight material was published Jan, Hyperlipidemia (ICD-10 - E78.5) Managing your cholesterol material was published 01/2022 ldl 71, trig 392, on statin. Jan, HTN (hypertension) (ICD-10 - I10) Managing high blood pressure material was published Jan, halfway current use of insulin (ICD-10 - Z79.4) Jan, Kidney transplant status (ICD-10 - Z94.0) keep f/u with nephrology/transpl ant team Jan, Hypoglycemia (ICD-10 - E16.2) Low blood glucose and diabetes material was published Jan, BMI 37.0-37.9, adult (ICD-10 - Z68.37) Eating healthy: tips to make it easier material was published 6 pound weight loss from last visit, continue with weight loss efforts [facility] Other 04-18-2023 NotePROCEDURE: XR LSPINE 2_3 VIEWS DATE: 09/29/2022 1:10 PM CDT COMPARISONS: None. CLINICAL INDICATION: 67 years Female Spinal stenosis of lumbar region Requisition states: Chronic low back pain FINDINGS: There is 2 mm anterior subluxation L4 on L5. There is minimal anterior subluxation L3 on L4. These findings are stable from previous exam. There is slight cephalad endplate compression of T12, stable from previous exam. There is mild multilevel degenerative disc changes, stable. There is moderate multilevel facet degenerative changes, stable. There appears to be mild sacroiliac degenerative changes, stable. There is no evidence of fractures or other acute osseous abnormalities. IMPRESSION: Mild to moderate diffusely scattered lumbar degenerative spondylosis, stable. Electronically authenticated by: SHADI KNOX Date: 2022-09-29 14:41[facility]04-13-2023 NoteCONSULTATION CONSULTATION DATE: 09/24/2022 TO: Dr. Octavio Guzman CHIEF COMPLAINT: Includes severe lower back pain, leg pain, buttock pain. HISTORY: She reports the pain overall being rated between 5-7/10 pain, sharp/deep ache in character, increased with activity such as standing and walking and performing transitioning maneuvers. She reports that she is able to ambulate further with the use of a cart, where she reports this does improve her lower back and leg pain. She denies any change in bowel and bladder habits or new sensorimotor changes in the lower extremities. EXAM: Notable for patient having weakness of the iliopsoas muscle and quadriceps bilaterally. Depressed bi-patellar reflex. She had no signs consistent with myelopathy. She did have significant myofascial spasm involving the lumbar paravertebral muscles, as well as the gluteus medius bilaterally. Patient had a point just near the insertion of the gluteus medius bilaterally and dysesthesia and hyperesthesia along the distribution of the lateral cutaneous branch of the iliohypogastric nerve. IMPRESSION: Our impression is patient with chronic pain secondary to spinal stenosis with neurogenic claudication, neuritis involving the lateral cutaneous branch of the iliohypogastric nerve and myofascial dysfunction involving the gluteus medius. RECOMMENDATIONS: I have recommended diagnostic bilateral injection of the lateral cutaneous branch of the iliohypogastric nerve under fluoroscopic guidance. Placed the patient in physical therapy. We will obtain a lumbosacral MRI to determine the extent of her spinal stenosis and patient was placed on baclofen 10 mg pills, half a pill to one pill t.i.d., and we will discontinue tizanidine secondary to ineffectiveness. We will also obtain lumbar spine films, PA and lateral views. As part of providing excellent, safe, comprehensive care, the following was completed at our patient's visit: 1. A medication reconciliation and review to ensure accurate knowledge of current/active medications, including asking our patients to inform us about any [id number] medications or herbal remedies/nutritional supplements/alternative remedies. 2. A review to specifically ensure our patients have had annual screening for: elevated body mass index (BMI, see intake chart for exact total), tobacco use, screening for depression, and screening for unhealthy alcohol use. When screening is concerning, patients are provided with education and the specific recommendation to discuss the concerning health issue and treatment options with their primary care provider.[id number] Evaluation note * Encounter Date Diagnosis Assessment Notes Treatment Notes Treatment Clinical Notes Jul, Arthritis of right hand (ICD-10 - M19.041) Patient appears to have arthritis in the right hand, especially at the index and middle finger MCP joints. Discussed treatment plans such as oral prednisone or cortisone injection. Also discussed to continue using the anti inflammatory gel for pain relief. Discussed occupational therapy which may be helpful as well. Patient has elected for cortisone injection today. After sterile prep, cortisone injection was performed into the right index and long MCP joints. Patient tolerated well. Jul, Synovitis of right wrist (ICD-10 - M65.9) Cortisone injection was performed into the right wrist joint after sterile prep. Patient tolerated well. Jul, Trigger thumb, left thumb (ICD-10 - M65.312) Cortisone injection was performed into the left thumb A1 terrance after sterile prep. Patient tolerated well. Jul, Trigger thumb, right thumb (ICD-10 - M65.311) Jul, Trigger finger, righ t ring finger (ICD-10 - M65.341) Jul, Mass of right hand (ICD-10 - R22.31) Jul, Carpal tunnel syndrome, right (ICD-10 - G56.01) Jul, Other specified postprocedural states (ICD-10 - Z98.890) Jul, Right hand pain (ICD-10 - M79.641) Jul, Right wrist pain (ICD-10 - M25.531) Jul, Left hand pain (ICD-10 - M79.642) [facility] Other 01-31-2023 Evaluation note* Encounter Date Diagnosis Assessment Notes Treatment Notes Treatment Clinical Notes Jun, Type 2 diabetes mellitus with hyperglycemia (ICD-10 - E11.65) Diabetes (type 2) material was published 1. Uncontrolled, a Type 2 diabetes with A1c of 7.9% 2. Blood glucose levels improved from last visit; however, above target. According to [facility] cgm download 07/01/2022- 3: Avg glucose 159. >250-5%, >180-30%, 70-180-65%, <70-0%, <54-0%. Cv 32.9% Reviewed download with pt readings often above target posptrandial from missed meal dose or from drinking regular pop. Incident of hypoglcyemia after late bolus to correct high blood sugar- reviewed importance of prebolus 15 minutes ac for improved posptrandial glycemia. Reviewed with pt how to titrate basal/bolus insulin according to fasting am/ac glucose patterns. Pt verbalizes understanding. 3. Patient is alert, oriented and receptive to making changes or counseling. Notes: Seen for an assessment of current glucose pattern, changes in treatment plan, with this time spent in counseling and coordination of care related to diabetes, risks, and benefits of treatment, medications, and side effects. TOPICS REVIEWED: 1. Time was spent reviewing: a. Basic concepts of diabetes, progressive beta cell , concepts of basal/bolus/correc tive insulin requirements. Basal: The goal is fasting blood glucose of 90-130mg. IF fasting blood glucose starts to run under 100mg 3x's/ week, decrease dose by 10%. Bolus: The goal is to hold the blood glucose level steady meal to meal. If pt. is going to have increased physical activity after a meal, decrease the schedule meal dose prior to the activity by 30-50%. If pt. skips a meal do not take this dose. Correction: The goal is to correct an elevated glucose back into the 100-150mg range b. Nutrition: Concepts of healthy diet, encouraged to decrease saturated fat in diet and increase non-starchy vegetables and fruits in diet. BMI: Pt. needs to select one small change to decrease caloric intake or increase physical activity to help decrease weight. c. Correct treatment of hypoglycemia, carry a glucose source at all times on your person, in vehicles, and at bedside. Can use glucose tablets/4, four ounces of pop or juice equal to 15 G of carbohydrate. Blood glucose should be 100 mg/dl or higher when driving. d. ADA glucose goals for age and medical complexity reviewed e. Patient questions addressed 2. Activity/exercise: Encouraged to start any form of physical activity. Start low level and increase slowly to a minimal goal of 150 minutes/week. Limit activity to what is allowed by other issues such as cardiac, pulmonary or orthopedic restrictions. 3. Standards of care: Reminded to have an annual dilated eye exam, A1C every 3 months, urine testing for microalbumin once/year, check feet daily and report any cuts or sores that do not appear to be healing. 4. Meter: Plan to check blood glucose: Please check blood glucose levels 4 times/day. Back to back meals reveal effectiveness of bolus dosing. The blood glucose data is used to determine insulin doses and confirm symptoms for hypoglycemia and hyperglcyemia. The blood glucose data is used to determine insulin doses, and confirm symptoms for hypoglycemia and hyperglcyemia. 5. [facility] Contact office if any issues or concerns with patterns of hypoglycemia, hyperglycemia, or diabetes medication issues. 6. Prescriptions: Will call when needed. 7. Prescriptions will not be filled unless you are compliant with follow up appointments or have a follow up appointment scheduled as ordered by your provider. Refills should be requested at the time of your visit. Jun, Dietary counseling and surveillance (ICD-10 - Z71.3) Maintaining a healthful weight material was published Jun, Hyperlipidemia (ICD-10 - E78.5) Managing your cholesterol material was published 01/2022 ldl 71, trig 392, on statin. 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 She was last seen on 01/22/2022 and, at that time, she reported pain 8/10. During the warm months, the patient does have a swimming pool and does pool exercises but, in the winter time, she is not overly active. She is complaining of 8-9/10 pain, which she believes is weather related. It is achy and sharp. She has been seen by Dr. Do, Neurosurgery, in [place] in the past, who did recommend a lumbar fusion in 2019. She has since been referred to [facility] for a second opinion, and the patient states she is not ready to attend that appointment or think about surgery. She does have chronic pain at high levels. She does take Percocet 7.5/325 t.i.d., gabapentin 600 mg t.i.d. per her PCP, sertraline, trazodone and a multivitamin regimen. She does take magnesium and tizanidine 4 mg as well. She is a type 1 diabetic and uses insulin. Her blood sugars remain mid 100s. She does have bilateral hypoesthesia to her lower extremities and feet. She denies any recent trips or falls, and she walks unassisted. Patient's REVIEW OF SYSTEMS / PAST MEDICAL HISTORY / ALLERGIES and IMAGES have been reviewed and noted in the chart. PHYSICAL EXAM: VITAL SIGNS: Blood pressure is 137/83. Heart rate is 72. Temperature is 97.1. She is 5'6 and weighs 100 kg. GENERAL IMPRESSION: Pleasant, appropriate, notably uncomfortable in the chair. FOCUSED EXAM - BACK: Range of motion is guarded in lateral rotation and flexion/extension. Patient is exquisitely tender along the lower lumbar facets, and paravertebral and lumbar erector spinae muscles are taut. Compression of the muscles does create a jump response. Tameka's point is tender bilaterally. Negative FABERs and compression test. MUSCULOSKELETAL: Motor is intact, 4/5 bilaterally. Patient does walk unassisted in a slow, steady gait. NEUROLOGICAL: Stocking distribution hypoesthesia noted along L4, L5, S1 distribution to the level of the heel and dorsum of the foot. Blunted bilateral patellar reflexes. Patient is cognitively intact. DIAGNOSIS: Lumbar spinal canal stenosis, lumbar degenerative disc disease, chronic lower back pain, lumbar radiculitis. PLAN: Patient prefers to hold off on all procedures and Neurosurgery consults at this time. We will treat her inflammation with a prednisone taper. She is unable to take oral NSAIDs due to a history of a kidney transplant. Patient does agree with this plan and will be followed up in the clinic in three months to maintain her medications.[id number] note* Encounter Date Diagnosis Assessment Notes Treatment Notes Treatment Clinical Notes May, Type 2 diabetes mellitus with hyperglycemia (ICD-10 - E11.65) [facility] Other 11-21-2022 Evaluation note* Encounter Date Diagnosis Assessment Notes Treatment Notes Treatment Clinical Notes Apr, Type 2 diabetes mellitus with hyperglycemia (ICD-10 - E11.65) [facility] Other 11-14-2022 Evaluation note* Encounter Date Diagnosis Assessment Notes Treatment Notes Treatment Clinical Notes Apr, Type 2 diabetes mellitus with hyperglycemia (ICD-10 - E11.65) [facility] Other 09-28-2022 Evaluation note* Encounter Date Diagnosis Assessment Notes Treatment Notes Treatment Clinical Notes Feb, Type 2 diabetes mellitus with hyperglycemia (ICD-10 - E11.65) Diabetes (type 2) material was published 1. Uncontrolled, a Type 2 diabetes with A1c of 8.0% 2. Blood glucose levels improved from last visit; however, above target. According to [facility] cgm download 02/26/2022- 2: Avg glucose 169. >250-11%, >180-27%, 70-180-61%, <70-1%, <54-0%. Cv 36.2% Reviewed download with pt readings often above target posptrandial from missed meal dose or from drinking regular pop. Incident of hypoglcyemia after late bolus to correct high blood sugar- reviewed importance of prebolus 15 minutes ac for improved posptrandial glycemia. Reviewed with pt how to titrate basal/bolus insulin according to fasting am/ac glucose patterns. Pt verbalizes understanding. Discussed with pt for improved glycemia insulin pumpt- she was given information on different pump options with cgm. 3. Patient is alert, oriented and receptive to making changes or counseling. Notes: Seen for an assessment of current glucose pattern, changes in treatment plan, with this time spent in counseling and coordination of care related to diabetes, risks, and benefits of treatment, medications, and side effects. TOPICS REVIEWED: 1. Time was spent reviewing: a. Basic concepts of diabetes, progressive beta cell , concepts of basal/bolus/correc tive insulin requirements. Basal: The goal is fasting blood glucose of 90-130mg. IF fasting blood glucose starts to run under 100mg 3x's/ week, decrease dose by 10%. Bolus: The goal is to hold the blood glucose level steady meal to meal. If pt. is going to have increased physical activity after a meal, decrease the schedule meal dose prior to the activity by 30-50%. If pt. skips a meal do not take this dose. Correction: The goal is to correct an elevated glucose back into the 100-150mg range b. Nutrition: Concepts of healthy diet, encouraged to decrease saturated fat in diet and increase non-starchy vegetables and fruits in diet. BMI: Pt. needs to select one small change to decrease caloric intake or increase physical activity to help decrease weight. c. Correct treatment of hypoglycemia, carry a glucose source at all times on your person, in vehicles, and at bedside. Can use glucose tablets/4, four ounces of pop or juice equal to 15 G of carbohydrate. Blood glucose should be 100 mg/dl or higher when driving. d. ADA glucose goals for age and medical complexity reviewed e. Patient questions addressed 2. Activity/exercise: Encouraged to start any form of physical activity. Start low level and increase slowly to a minimal goal of 150 minutes/week. Limit activity to what is allowed by other issues such as cardiac, pulmonary or orthopedic restrictions. 3. Standards of care: Reminded to have an annual dilated eye exam, A1C every 3 months, urine testing for microalbumin once/year, check feet daily and report any cuts or sores that do not appear to be healing. 4. Meter: Plan to check blood glucose: Please check blood glucose levels 4 times/day. Back to back meals reveal effectiveness of bolus dosing. The blood glucose data is used to determine insulin doses and confirm symptoms for hypoglycemia and hyperglcyemia. The blood glucose data is used to determine insulin doses, and confirm symptoms for hypoglycemia and hyperglcyemia. 5. [facility]. Contact office if any issues or concerns with patterns of hypoglycemia, hyperglycemia, or diabetes medication issues. 6. Prescriptions: Will call when needed Feb, Dietary counseling and surveillance (ICD-10 - Z71.3) Maintaining a healthful weight material was published Feb, Hyperlipidemia (ICD-10 - E78.5) Managing your cholesterol material was published 07/2021 ldl 79, trig 355, on statin. Feb, HTN (hypertension) (ICD-10 - I10) Managing high blood pressure material was published Feb, halfway current use of insulin (ICD-10 - Z79.4) Feb, Kidney transplant status (ICD-10 - Z94.0) keep f/u with nephrology Feb, Vitamin D deficiency (ICD-10 - E55.9) 07/2021 vit d 23.9, recommend otc vit d 2000 units once daily Feb, BMI 38.0-38.9,adult (ICD-10 - Z68.38) Healthy eating material was published 3 pound weight loss from last visit, continue with weight loss efforts [facility] Other 08-11-2022 NoteCONSULTATION CONSULTATION DATE: 01/22/2022 HISTORY OF PRESENT ILLNESS: This is a 66-year-old female returning to the clinic status post lumbar epidural steroid injection 01/06/2022. She is reporting zero relief. She was last seen on 11/20/2021 and, at that time, we had a discussion regarding moving forward with her lumbar ablations. Patient continues to hold off, stating that she will think about it. She is on Percocet 7.5/325 t.i.d. and is requesting to go back to [place] 10 today. She states that helps her pain the most. She does have trouble transitioning positions from sitting to standing and walks in a forward flexion position. The patient does have a history of a kidney transplant, does not take NSAIDs. Other medications include gabapentin 600 mg t.i.d., sertraline 100 mg daily, tizanidine 4 mg q.h.s. Patient is a diabetic. Her most recent blood sugars vary between 100 and 200. She does describe her pain as an 8/10 and achy, which is diffusely across her lower lumbar area. She does have some radiating pain along her lateral and anterior thighs bilateral, to the point above the knee. Activities such as standing, walking, bending, housework and lifting aggravate her pain. She uses heat daily which helps her pain. The patient does have a pool and daily she does exercises to keep her strength up. Patient's REVIEW OF SYSTEMS / PAST MEDICAL HISTORY / ALLERGIES and IMAGES have been reviewed and they are noted on the chart. PHYSICAL EXAM: VITAL SIGNS: Blood pressure 122/79, heart rate is 73. Temperature is 97.7. She is 66 tall and weighs 101.7 kg. GENERAL APPEARANCE: Pleasant, appropriate, uncomfortable in the chair. FOCUSED EXAM - BACK: Range of motion is guarded in lateral rotation and flexion/extension. Patient has overt allodynia diffusely across her lower lumbar area. Paravertebral muscles are non-spasmodic. Tameka's point is non-tender. Reproduction of patient's spinal axial pain to very light compression along the lumbar facets of L2, L3 and L4, L5, right side greater than left. Positive jump response long L4, L5. Fullness is felt along the facets, indicative of facet arthropathy, lumbar spondylosis. MUSCULOSKELETAL: Motor is intact, 4/5 bilaterally. Slight motor weakness to the right. Patient does not use an assistive device to ambulate. Muscle tone is adequate. NEUROLOGICAL: Diffuse polyneuropathy to bilateral feet. Blunted bilateral patellar and Achilles reflexes. IMPRESSION: Lumbar degenerative disc disease, lumbar spondylosis, lumbar disc displacement, lumbar radiculitis. PLAN: Education was given and, again, talked to the patient regarding moving forward with the ablations. She had a #1 MBB with 80% relief to the lower lumbar in April of 2021. #2 MBB gave her 10% relief in May. I did recommend repeating the #2 bilateral MBB to L2, L3 and L4, L5 and pending the efficacy of that, we would like to move forward with bilateral RFAs. Patient would like to think about that at this time and will call back if she wants to proceed. In the meantime, we will refill her Percocet 7.5/325 t.i.d. and she is encouraged to continue her pool exercises. There will be no dose changes to [place]. She will be back in three months' time, if she does not want to move forward with the procedure.[id number] Evaluation note* Encounter Date Diagnosis Assessment Notes Treatment Notes Treatment Clinical Notes Nov, Type 2 diabetes mellitus with hyperglycemia (ICD-10 - E11.65) Diabetes (type 2) material was published 1. Uncontrolled, a Type 2 diabetes with A1c of 8.4% 2. Blood glucose levels improved from last visit; however, above target. According to [facility] cgm download 11/21/2021- 2: Avg glucose 182. >250-11%, >180-43%, 70-180-45%, <70-1%, <54-0%. Cv 32.3% Reviewed download with pt readings often above target posptrandial from missed meal dose or from drinking regular coke. Incident of hypoglcyemia after late bolus to correct high blood sugar- reviewed importance of prebolus 15 minutes ac for improved posptrandial glycemia. She is tolerating ozempic 1 mg dose, recommend increasing to 2mg once weekly, she is agreeable. Reviewed with pt how to titrate basal/bolus insulin according to fasting am/ac glucose patterns. Pt verbalizes understanding. 3. Patient is alert, oriented and receptive to making changes or counseling. Notes: Seen for an assessment of current glucose pattern, changes in treatment plan, with this time spent in counseling and coordination of care related to diabetes, risks, and benefits of treatment, medications, and side effects. TOPICS REVIEWED: 1. Time was spent reviewing: a. Basic concepts of diabetes, progressive beta cell , concepts of basal/bolus/correc tive insulin requirements. Basal: The goal is fasting blood glucose of 90-130mg. IF fasting blood glucose starts to run under 100mg 3x's/ week, decrease dose by 10%. Bolus: The goal is to hold the blood glucose level steady meal to meal. If pt. is going to have increased physical activity after a meal, decrease the schedule meal dose prior to the activity by 30-50%. If pt. skips a meal do not take this dose. Correction: The goal is to correct an elevated glucose back into the 100-150mg range b. Nutrition: Concepts of healthy diet, encouraged to decrease saturated fat in diet and increase non-starchy vegetables and fruits in diet. BMI: Pt. needs to select one small change to decrease caloric intake or increase physical activity to help decrease weight. c. Correct treatment of hypoglycemia, carry a glucose source at all times on your person, in vehicles, and at bedside. Can use glucose tablets/4, four ounces of pop or juice equal to 15 G of carbohydrate. Blood glucose should be 100 mg/dl or higher when driving. d. ADA glucose goals for age and medical complexity reviewed e. Patient questions addressed 2. Activity/exercise: Encouraged to start any form of physical activity. Start low level and increase slowly to a minimal goal of 150 minutes/week. Limit activity to what is allowed by other issues such as cardiac, pulmonary or orthopedic restrictions. 3. Standards of care: Reminded to have an annual dilated eye exam, A1C every 3 months, urine testing for microalbumin once/year, check feet daily and report any cuts or sores that do not appear to be healing. 4. Meter: Plan to check blood glucose: Please check blood glucose levels 4 times/day. Back to back meals reveal effectiveness of bolus dosing. The blood glucose data is used to determine insulin doses and confirm symptoms for hypoglycemia and hyperglcyemia. The blood glucose data is used to determine insulin doses, and confirm symptoms for hypoglycemia and hyperglcyemia. 5. [facility]. Contact office if any issues or concerns with patterns of hypoglycemia, hyperglycemia, or diabetes medication issues. 6. Prescriptions: Ozempic 2mg/Jardiance 25mg sent to [place] Nov, Dietary counseling and surveillance (ICD-10 - Z71.3) Maintaining a healthful weight material was published Nov, Hyperlipidemia (ICD-10 - E78.5) Managing your cholesterol material was published 07/2021 ldl 79, trig 355, on statin. Nov, HTN (hypertension) (ICD-10 - I10) Managing high blood pressure material was published Nov, halfway current use of insulin (ICD-10 - Z79.4) Nov, Kidney transplant status (ICD-10 - Z94.0) keep f/u with nephrology Nov, Vitamin D deficiency (ICD-10 - E55.9) 07/2021 vit d 23.9, recommend otc vit d 2000 units once daily Nov, BMI 38.0-38.9,adult (ICD-10 - Z68.38) Healthy eating material was published 3 pound weight loss from last visit, continue with weight loss efforts [facility] Other 06-09-2022 NoteCONSULTATION CONSULTATION DATE: 11/20/2021 HISTORY OF PRESENT ILLNESS: This is a 66-year-old female returning to the clinic for a three month follow up for her chronic lower back pain. Today her pain is 8/10 and she is frustrated with the level of the pain, as she is trying to be active with the warmer weather. The patient had medial branch blocks in the past with minimal relief. She did receive, in July of 2021, a lumbar epidural steroid injection, which did afford her 60% relief for three months' time. She does home exercises including home pool therapy on a daily basis. Patient is unable to take NSAIDs secondary to having a kidney transplant. Medications include Percocet 7.5/325 t.i.d., gabapentin 600 mg t.i.d., tizanidine, trazodone and Os-Tigre. Activities such as twisting, turning, pushing, pulling, stairs, bending and doing housework aggravate her pain. She does use heat nightly which decreases her pain. Patient does not walk with an assistive device at this time. She is inquiring about a possible increase in her Percocet dose and frequency. Patient's REVIEW OF SYSTEMS / PAST MEDICAL HISTORY / ALLERGIES and IMAGES have been reviewed and they are noted on the chart. PHYSICAL EXAM: VITAL SIGNS: Blood pressure 116/70, heart rate is 64. Temperature is 97.5. She is 66 cm tall and weighs 104.6 kg. GENERAL APPEARANCE: Uncomfortable, pleasant and appropriate. FOCUSED EXAM - BACK: Range of motion is limited and guarded in lateral rotation and flexion/extension. Reproduction of spinal axial pain to direct compression along the posterior elements of the facets of L2, L3 and L4, L5 bilaterally. Patient does have diffuse neuropathic pain that radiates from her lower lumbar to just above the knees at the posterior aspect of her lower extremities. Tameka's point is mildly tender to the right with referral to the right hip. MUSCULOSKELETAL: Motor is intact, 4/5 bilaterally. Slight weakness in the quadriceps bilaterally. Patient walks with a steady gait, does not use assistive device. NEUROLOGICALLY: Diffuse peripheral neuropathy to her bilateral feet. IMPRESSION: Lumbar radiculitis, peripheral neuropathy, lumbar degenerative disc disease. PLAN: We will submit for authorization for a lumbar epidural steroid injection at the level of L4, L5. Patient was encouraged to continue with her home pool exercises and to use ankle weights and dangling maneuvers in the pool. Patient continues to prefer to hold off on neurosurgery at this time. She is to currently maintain her vitamins and nutrition was discussed. Her Percocet dose will be maintained at 7.5/325 t.i.d. Patient will be followed up in the office post procedure. Patient agrees to move forward and all questions answered. [facility] Signed and Approved by: ELIESER BIRCH . 11/27/2021 16:02:00[facility]02-22-2022 Evaluation note* Encounter Date Diagnosis Assessment Notes Treatment Notes Treatment Clinical Notes Jul, Type 2 diabetes mellitus with hyperglycemia (ICD-10 - E11.65) Diabetes (type 2) material was published 1. Uncontrolled, a Type 2 diabetes with A1c of 7.9% 2. Blood glucose levels improved from last visit; however, above target. According to [facility] cgm download 07/23/2021-08/05/2021 : Avg glucose 154. >250-5%, >180-19%, 70-180-76%, <70-0%, <54-0%. Cv 32.6% Reviewed download with pt readings often above target posptrandial from missed meal dose. Incident of hypoglcyemia after late bolus to correct high blood sugar- reviewed importance of prebolus 15 minutes ac for improved posptrandial glycemia. She is tolerating ozempic 0.5mg dose, recommend increasing to 1mg once weekly, she is agreeable. Reviewed with pt how to titrate basal/bolus insulin according to fasting am/ac glucose patterns. Pt verbalizes understanding. 3. Patient is alert, oriented and receptive to making changes or counseling. Notes: Seen for an assessment of current glucose pattern, changes in treatment plan, with this time spent in counseling and coordination of care related to diabetes, risks, and benefits of treatment, medications, and side effects. TOPICS REVIEWED: 1. Time was spent reviewing: a. Basic concepts of diabetes, progressive beta cell , concepts of basal/bolus/correc tive insulin requirements. Basal: The goal is fasting blood glucose of 90-130mg. IF fasting blood glucose starts to run under 100mg 3x's/ week, decrease dose by 10%. Bolus: The goal is to hold the blood glucose level steady meal to meal. If pt. is going to have increased physical activity after a meal, decrease the schedule meal dose prior to the activity by 30-50%. If pt. skips a meal do not take this dose. Correction: The goal is to correct an elevated glucose back into the 100-150mg range b. Nutrition: Concepts of healthy diet, encouraged to decrease saturated fat in diet and increase non-starchy vegetables and fruits in diet. BMI: Pt. needs to select one small change to decrease caloric intake or increase physical activity to help decrease weight. c. Correct treatment of hypoglycemia, carry a glucose source at all times on your person, in vehicles, and at bedside. Can use glucose tablets/4, four ounces of pop or juice equal to 15 G of carbohydrate. Blood glucose should be 100 mg/dl or higher when driving. d. ADA glucose goals for age and medical complexity reviewed e. Patient questions addressed 2. Activity/exercise: Encouraged to start any form of physical activity. Start low level and increase slowly to a minimal goal of 150 minutes/week. Limit activity to what is allowed by other issues such as cardiac, pulmonary or orthopedic restrictions. 3. Standards of care: Reminded to have an annual dilated eye exam, A1C every 3 months, urine testing for microalbumin once/year, check feet daily and report any cuts or sores that do not appear to be healing. 4. Meter: Plan to check blood glucose: Please check blood glucose levels 4 times/day. Back to back meals reveal effectiveness of bolus dosing. The blood glucose data is used to determine insulin doses and confirm symptoms for hypoglycemia and hyperglcyemia. The blood glucose data is used to determine insulin doses, and confirm symptoms for hypoglycemia and hyperglcyemia. 5. [facility]. Contact office if any issues or concerns with patterns of hypoglycemia, hyperglycemia, or diabetes medication issues. 6. Prescriptions: Sent ozempic 1mg to [facility]. Jul, Dietary counseling and surveillance (ICD-10 - Z71.3) Maintaining a healthful weight material was published Jul, Hyperlipidemia (ICD-10 - E78.5) Managing your cholesterol material was published 07/2021 ldl 79, trig 355, on statin. Jul, HTN (hypertension) (ICD-10 - I10) Managing high blood pressure material was published Jul, halfway current use of insulin (ICD-10 - Z79.4) Jul, Kidney transplant status (ICD-10 - Z94.0) keep f/u with nephrology Jul, BMI 39.0-39.9,adult (ICD-10 - Z68.39) Healthy eating material was published 9 pound weight loss from last visit, continue with weight loss efforts Jul, Vitamin D deficiency (ICD-10 - E55.9) 07/2021 vit d 23.9, recommend otc vit d 2000 units once daily [facility] Other 02-01-2022 Evaluation note* Encounter Date Diagnosis Assessment Notes Treatment Notes Treatment Clinical Notes Jul, Type 2 diabetes mellitus with hyperglycemia (ICD-10 - E11.65) [facility] Other 11-01-2020 History general Narrative - Reported* Type Description Date Medical History DM2 Medical History KIDNEY RT/TRANSPLANT 2012 Medical History HLP Medical History HTN Medical History PVD Medical History Fractured left ankle 04/2020 Surgical History RT KIDNEY TRANSPLANT 2012 Surgical History LT SHOULDER Surgical History HYSTER Surgical History CHOLY Hospitalization History SEE ABOVE SURGERY [facility] Other Evaluation noteNo InformationNortBioAxone Therapeutic Other Summary Purpose Family History No Family History Records FoundNo Family History Records FoundNo Family History Records Found Advance Directives No Advanced Directives Records FoundNo Advanced Directives Records FoundNo Advanced Directives Records Found Additional Source Comments REASON FOR VISIT (unrecogniz ed section and content) DM 3 month F/U, Type 2 IDDM enedelia cgm Follow up with [facility] [employer], NUCLEAR MEDICINE PET CT TECHNOLOGIST-C, BC- ADMlab resultschange request from pharmacyTKM-RefillsDM 3 month F/U, Type 2 IDDM enedelia cgm Follow up with [facility] [employer], NUCLEAR MEDICINE PET CT TECHNOLOGIST-C, BC-ADMDM 3 month F/U, Type 2 IDDM enedelia cgm Follow up with [facility] [employer], NUCLEAR MEDICINE PET CT TECHNOLOGIST-C, BC-ADMlab resultsTKM-Enedelia 2 hltidfsTNN-HmqtmpcFID-KlysnnaHP F/U pt rescheduled apt, Type 2 IDDM enedelia cgm Follow up with [facility] [employer], NUCLEAR MEDICINE PET CT TECHNOLOGIST-C, BC-ADMRight Wrist PainDM F/U pt rescheduled apt, Type 2 IDDM enedelia cgm Follow up with [facility] [employer], NUCLEAR MEDICINE PET CT TECHNOLOGIST-C, BC-ADM, Last visit 07/14/22TKM - REFILL REQUEST FOR TRESIBATKM Tres[facility]KM - LAB RESULTS - LVM REQUESTING PT RETURN CALL 03/03/23DM 3 month Follow up, Type 2 IDDM enedelia cgm Follow up with [facility] [employer], NUCLEAR MEDICINE PET CT TECHNOLOGIST-C, BC-ADM INFORMATION SOURCE (unrecogn ized section and content) DATE CREATED AUTHOR 10/24/2022 [facility] DATE CREATED AUTHOR AUTHOR'S ORGANIZ ATION 05/15/2023 [facility] DATE CREATED AUTHOR AUTHOR'S ORGANIZ ATION 06/04/2023 [facility] FOR RECORDS PERTAINING TO PATIENTS WHO ARE OR HAVE BEEN ENROLLED IN A CHEMICAL DEPENDENCY/SUBSTANCEABUSE PROGRAM, SOME INFORMATION MAY BE OMITTED. This clinical summary was aggregated from multiple sources. Caution should be exercised in using it in the provision of clinical care. This summary normalizes information from multiple sources, and as a consequence, information in this document may materially change the coding, format and clinical context of patient data. In addition, data may be omitted in some cases. CLINICAL DECISIONS SHOULD BE BASED ON THE PRIMARY CLINICAL RECORDS. [facility] provides no warranty or guarantee of the accuracy or completeness of information in this document.
--- NOTE | 2023-07-08 09:18 | P.CN_ITS ---
Consult Note: HPI Data of Consult Patient: known to practice within the last 3 years Requesting Physician: Qiana Chiu NP Primary Care Provider: YOLANDA MAGAÑA Consult Narrative Reason for consult: MRI review Narrative: Lisy Solis a pleasant 67 year old female presents for evaluation and management of chronic bilateral low back pain, today pain 9/10 sharp. Pain today 9/10 in bilateral low back radiating to bilateral thighs and legs, sharp shooting pain. Patient has not noticed improvement in her pain with gabapentin increase, continues to report functional improvement with percocet and other medications. 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 - Type 1 diabetes mellitus with ketoacidosis without coma (ICD-10) Kidney failure ?N19 - Unspecified kidney failure (ICD-10) Hypertension ?I10 - Essential (primary) hypertension (ICD-10) Surgical History History of cholecystectomy ?Z90.49 - Acquired absence of other specified parts of digestive tract (ICD- 10) History of arthroscopy of left shoulder ?Z98.890 - Other specified postprocedural states (ICD-10) H/O hand surgery ?Z98.890 - Other specified postprocedural states (ICD-10) H/O section ?Z98.891 - History of uterine scar from previous surgery (ICD-10) H/O cervical spine surgery ?Z98.890 - Other specified postprocedural states (ICD-10) History of tonsillectomy and adenoidectomy ?Z90.89 - Acquired absence of other organs (ICD-10) History of carpal tunnel release of both wrists ?Z98.890 - Other specified postprocedural states (ICD-10) H/O: hysterectomy ?Z90.710 - Acquired absence of both cervix and uterus (ICD-10) Kidney transplant recipient ?Z94.0 - Kidney transplant status (ICD-10) Social History Smoking status: Never smoker Meds Home Medications and Allergies Home Medications Medication Instructions Recorded Confirmed Type OSCAL 11/23/22 History atorvastatin 40 mg tablet 40 mg PO .HS 11/23/22 04/20/23 History dulaglutide 1.5 mg/0.5 mL 1.5 mg subcut QWEEK 11/23/22 04/20/23 History subcutaneous pen injector (Trulicity) empagliflozin 25 mg tablet 25 mg PO DAILY 11/23/22 04/20/23 History (Jardiance) ferrous sulfate 325 mg (65 mg mg 11/23/22 History iron) tablet gabapentin 600 mg tablet mg PO TID 11/23/22 History insulin aspart U-100 100 unit/mL 30 unit subcut TID 11/23/22 04/20/23 History (3 mL) subcutaneous pen (Novolog FlexPen U-100 Insulin aspart) mycophenolate mofetil 500 mg tablet 800 mg PO BID 11/23/22 04/20/23 History oxycodone-acetaminophen 7.5 mg-325 1 tab PO TID PRN pain 11/23/22 04/20/23 History mg tablet (Endocet) sertraline 100 mg tablet 100 mg PO DAILY 11/23/22 04/20/23 History tacrolimus 1 mg capsule, 3 mg PO Q12H 11/23/22 04/20/23 History immediate-release baclofen 10 mg tablet 10 mg PO TID PRN muscle spasm #90 03/03/23 04/20/23 Rx tabs oxycodone-acetaminophen 7.5 mg-325 1 tab PO TID PRN pain #90 tabs 03/03/23 04/20/23 Rx mg tablet (Percocet) oxycodone-acetaminophen 7.5 mg-325 1 tab PO TID PRN pain #90 tabs 04/08/23 04/20/23 Rx mg tablet (Percocet) semaglutide 0.25 mg or 0.5 mg (2 0.25 mg subcut QWEEK 04/20/23 04/20/23 History mg/3 mL) subcutaneous pen injector (Ozempic) semaglutide 0.25 mg or 0.5 mg (2 0.25 mg subcut QWEEK 04/20/23 04/20/23 History mg/3 mL) subcutaneous pen injector (Ozempic) oxycodone-acetaminophen 7.5 mg-325 1 tab PO TID PRN pain #90 tabs 04/29/23 Rx mg tablet (Percocet) oxycodone-acetaminophen 7.5 mg-325 1 tab PO TID PRN pain #90 tabs 06/02/23 Rx mg tablet (Endocet) oxycodone-acetaminophen 7.5 mg-325 1 tab PO TID PRN pain #90 tabs 07/08/23 Rx mg tablet (Percocet) Allergies Allergy/AdvReac Type Severity Reaction Status Date / Time No Known Drug Allergies Allergy Verified 01/26/23 10:17 Exam Constitutional Documenting provider has reviewed patient's vital signs: yes Common normals: no apparent distress, oriented x3, healthy appearing, alert and well nourished General appearance: cooperative Nutritional appearance: overweight HENMT Common normals: normocephalic, hearing grossly normal bilaterally and moist oral mucous membranes Head and scalp: normocephalic Eye Common normals: PERRL Pupil: PERRL Neck & C-Spine Common normals: full ROM General: normal visual inspection Cervical spine: pain with cervical ROM Chest Common normals: inspection of chest normal Respiratory Common normals: normal respiratory effort, no retractions and no use of accessory muscles Back & Pelvis Lumbar spine/lower back: ROM limited, pain with ROM, straight leg raise positive right and straight leg raise positive left Sacroiliac joints: SI joints normal Extremity Common normals: normal to inspection and full ROM Neuro Common normals: oriented x3, CN's II-XII intact bilaterally, moves all extremities, no focal motor deficits, no sensory deficits noted and deep tendon reflexes 2+ bilaterally Sensorium/orientation: alert Gait (neuro): antalgic Motor exam: strength 5/5 throughout and no movement abnormalities noted Psych Common normals: mental status grossly normal, thought process normal, cooperative, affect normal, speech normal and activity/motor behavior normal Speech: normal speech Thought process: normal thought process Results Additional Findings Additional findings: I have checked an OARRS report on this patient today and there are no aberrancies noted in the prescribing history.?? A drug screen was completed and reviewed within the last year, and if there has not been a drug screen completed we ordered one today to monitor higher risk, state monitored pain medication use. As part of providing excellent, safe, comprehensive care, the following was completed at our patient's visit: 1. A medication reconciliation and review to ensure accurate knowledge of current/active medications, including asking our patients to inform us about any [id number] medications or herbal remedies/nutritional supplements/alternative remedies. 2. A review to specifically ensure our patients have had annual screening for: elevated body mass index (BMI), tobacco use, screening for depression, and screening for unhealthy alcohol use. When screening is concerning, patients are provided with education and the specific recommendation to discuss the concerni ng health issue and treatment options with their primary care provider. Assessment and Plan Assessment and Plan (1) Lumbar stenosis with neurogenic claudication: (2) Lumbar radiculopathy: (3) Chronic, continuous use of opioids: (4) Cervical radiculopathy: Plan increase gabapentin to 900mg TID, risks vs benefits discussed MRI reveals multiple levels of degenerative changes and gkvh-mmawpiio-ycqpsk stensosis NS referral to discuss options, patient cancelled and has not rescheduled does not think she should drive in the winter weather declining lumbar ESIs at this time continue percocet 7.5/325 TID PRN narcan previously discussed and prescribed f/u 6 weeks to evaluate medications
== END 2023-07-08 08:57 | disposition home or self-care (01) ==
PROVIDERS: PCP Nurse Practitioner Family; Visit Provider Nurse Practitioner
DX: M54.12 Radiculopathy, cervical region (principal); M54.16 Radiculopathy, lumbar region; Z79.899 Other long term (current) drug therapy; M48.062 Spinal stenosis, lumbar region with neurogenic claudication
CPT/HCPCS: G0463

== ENCOUNTER 2023-08-25 13:59 | Outpatient (OUT) | payer MEDICARE, SELFPAY ==
--- NOTE | 2023-08-25 14:17 | P.CN_ITS ---
Consult Note: HPI Data of Consult Patient: known to practice within the last 3 years Requesting Physician: Qiana Chiu NP Primary Care Provider: YOLANDA MAGAÑA Consult Narrative Reason for consult: f/u Narrative: Lisy Solis a pleasant 67 year old female presents for evaluation and management of chronic bilateral low back pain, today pain 8/10 sharp. Pain in bilateral low back radiating to bilateral thighs and legs, sharp shooting pain. Patient had not started increase in gabapentin, planning to start 900mg TID next fill, continues to report functional improvement with percocet and other medications. Patient not interested in meeting with NS at this time. Patient not interested in injection therapy. 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 - Type 1 diabetes mellitus with ketoacidosis without coma (ICD-10) Kidney failure ?N19 - Unspecified kidney failure (ICD-10) Hypertension ?I10 - Essential (primary) hypertension (ICD-10) Surgical History History of cholecystectomy ?Z90.49 - Acquired absence of other specified parts of digestive tract (ICD- 10) History of arthroscopy of left shoulder ?Z98.890 - Other specified postprocedural states (ICD-10) H/O hand surgery ?Z98.890 - Other specified postprocedural states (ICD-10) H/O section ?Z98.891 - History of uterine scar from previous surgery (ICD-10) H/O cervical spine surgery ?Z98.890 - Other specified postprocedural states (ICD-10) History of tonsillectomy and adenoidectomy ?Z90.89 - Acquired absence of other organs (ICD-10) History of carpal tunnel release of both wrists ?Z98.890 - Other specified postprocedural states (ICD-10) H/O: hysterectomy ?Z90.710 - Acquired absence of both cervix and uterus (ICD-10) Kidney transplant recipient ?Z94.0 - Kidney transplant status (ICD-10) Social History Smoking status: Never smoker Meds Home Medications and Allergies Home Medications Medication Instructions Recorded Confirmed Type OSCAL 11/23/22 History atorvastatin 40 mg tablet 40 mg PO .HS 11/23/22 04/20/23 History dulaglutide 1.5 mg/0.5 mL 1.5 mg subcut QWEEK 11/23/22 04/20/23 History subcutaneous pen injector (Trulicity) empagliflozin 25 mg tablet 25 mg PO DAILY 11/23/22 04/20/23 History (Jardiance) ferrous sulfate 325 mg (65 mg mg 11/23/22 History iron) tablet gabapentin 600 mg tablet mg PO TID 11/23/22 History insulin aspart U-100 100 unit/mL 30 unit subcut TID 11/23/22 04/20/23 History (3 mL) subcutaneous pen (Novolog FlexPen U-100 Insulin aspart) mycophenolate mofetil 500 mg tablet 800 mg PO BID 11/23/22 04/20/23 History oxycodone-acetaminophen 7.5 mg-325 1 tab PO TID PRN pain 11/23/22 04/20/23 History mg tablet (Endocet) sertraline 100 mg tablet 100 mg PO DAILY 11/23/22 04/20/23 History tacrolimus 1 mg capsule, 3 mg PO Q12H 11/23/22 04/20/23 History immediate-release baclofen 10 mg tablet 10 mg PO TID PRN muscle spasm #90 03/03/23 04/20/23 Rx tabs oxycodone-acetaminophen 7.5 mg-325 1 tab PO TID PRN pain #90 tabs 03/03/23 04/20/23 Rx mg tablet (Percocet) oxycodone-acetaminophen 7.5 mg-325 1 tab PO TID PRN pain #90 tabs 04/08/23 04/20/23 Rx mg tablet (Percocet) semaglutide 0.25 mg or 0.5 mg (2 0.25 mg subcut QWEEK 04/20/23 04/20/23 History mg/3 mL) subcutaneous pen injector (Ozempic) semaglutide 0.25 mg or 0.5 mg (2 0.25 mg subcut QWEEK 04/20/23 04/20/23 History mg/3 mL) subcutaneous pen injector (Ozempic) oxycodone-acetaminophen 7.5 mg-325 1 tab PO TID PRN pain #90 tabs 04/29/23 Rx mg tablet (Percocet) oxycodone-acetaminophen 7.5 mg-325 1 tab PO TID PRN pain #90 tabs 06/02/23 Rx mg tablet (Endocet) oxycodone-acetaminophen 7.5 mg-325 1 tab PO TID PRN pain #90 tabs 07/08/23 Rx mg tablet (Percocet) oxycodone-acetaminophen 7.5 mg-325 1 tab PO TID PRN pain #90 tabs 08/05/23 Rx mg tablet (Percocet) Allergies Allergy/AdvReac Type Severity Reaction Status Date / Time No Known Drug Allergies Allergy Verified 01/26/23 10:17 Exam Narrative Exam Narrative: pain improved with forward flexion and when sitting, increase in low back pain radiculopathy and weakness of BLE with standing and activity Constitutional Documenting provider has reviewed patient's vital signs: yes Common normals: no apparent distress, oriented x3, healthy appearing, alert and well nourished General appearance: cooperative Nutritional appearance: overweight HENMT Common normals: normocephalic, hearing grossly normal bilaterally and moist oral mucous membranes Head and scalp: normocephalic Eye Common normals: PERRL Pupil: PERRL Neck & C-Spine Common normals: full ROM General: normal visual inspection Cervical spine: pain with cervical ROM Chest Common normals: inspection of chest normal Respiratory Common normals: normal respiratory effort, no retractions and no use of access ory muscles Back & Pelvis Lumbar spine/lower back: ROM limited and pain with ROM Sacroiliac joints: SI joints normal Extremity Common normals: normal to inspection and full ROM Neuro Common normals: oriented x3, CN's II-XII intact bilaterally, moves all extremities, no focal motor deficits, no sensory deficits noted and deep tendon reflexes 2+ bilaterally Sensorium/orientation: alert Gait (neuro): antalgic Motor exam: strength 5/5 throughout and no movement abnormalities noted Psych Common normals: mental status grossly normal, thought process normal, cooperative, affect normal, speech normal and activity/motor behavior normal Speech: normal speech Thought process: normal thought process Results Additional Findings Additional findings: If on a controlled substance or opioids, I have checked an OARRS report on this patient today and there are no aberrancies noted in the prescribing history.?? A drug screen was completed and reviewed within the last year, and if there has not been a drug screen completed we ordered one today to monitor higher risk, state monitored pain medication use. As part of providing excellent, safe, comprehensive care, the following was completed at our patient's visit: Reviewed patients? medication reconciliation. An annual review has been completed for the following: screening for depression, screening for tobacco use, and screening for unhealthy alcohol use. For concerning screenings had a discussion with the patient, provided patient education, and recommended follow-up with primary care provider when appropriate. If patient noted with a risk of falling, they received education on strength, gait, and balance training to prevent future risk of falling. Assessment and Plan Assessment and Plan (1) Lumbar stenosis with neurogenic claudication: (2) Encounter for long-term use of opiate analgesic: Assessment and Plan: I have refilled the patient's opioid prescriptions at the above noted dose and schedule.? I feel these medications are improving the patient's quality of life and allow them to tolerate activities of daily living as well as participate in recreational activity.? The patient does not report intolerable side effects. The patient is NOT opioid naive and non-pharmacologic and non-opioid treatment has failed to significantly relieve the patient's pain and improve functionality. The patient has a diagnosis that is related to a somatic or visceral pain etiology. ? ?? I reviewed with the patient the potential risks and side effects with the use of? opioid medications including but not limited to respiratory depression,? sedation, and even . I verified the patient has access to naloxone should? these effects occur. I advised the patient to avoid the use of any other? sedation substances including alcohol, THC, and benzodiazepines while? taking opioid medications due to the risk of compounding side effects and? detrimental outcomes. I reviewed the [employer], pain treatment agreement, urine? drug screen, and opioid start talking forms. The patient was advised to let? their family know they had Naloxone in case they would need to administer? the medication.? ?? A drug screen was completed within the last year, and no aberrancies were noted regarding their use of controlled substances. The patient understands they are subject to the terms and conditions of the pain contract that they have signed. ? ?? I have checked an OARRS report on this patient today and there are no aberrancies noted in the prescribing history.? (3) Lumbar radiculopathy: (4) Lumbar spondylosis: (5) Neuritis: (6) Cervical spondylosis: (7) Myofascial pain: Plan start gabapentin 900mg TID continue percocet 7.5mg TID PRN moderate to severe pain continue baclofen 10mg TID PRN myofascial pain narcan discussed and prescribed consider vertiflex for lumbar stenosis with NC f/u 2 months
== END 2023-08-25 14:00 | disposition home or self-care (01) ==
LOC: PM 13:59
PROVIDERS: PCP Nurse Practitioner Family; Visit Provider Nurse Practitioner
DX: M48.02 Spinal stenosis, cervical region (principal); Z79.891 Long term (current) use of opiate analgesic; M54.16 Radiculopathy, lumbar region; M47.816 Spondylosis without myelopathy or radiculopathy, lumbar region; M47.812 Spondylosis without myelopathy or radiculopathy, cervical region; M79.18 Myalgia, other site
CPT/HCPCS: G0463

== ENCOUNTER 2023-09-27 14:46 | Outpatient (OUT) | payer MEDICARE, SELFPAY ==
--- NOTE | 2023-09-27 16:18 | PM.CN ---
Consult Note: HPI Data of Consult Patient: known to practice within the last 3 years Consult date: 09/27/23 Requesting Physician: Tra Last MD Primary Care Provider: YOLANDA MAGAÑA Consult Narrative Reason for consult: low back, bilateral lower extremity pain Narrative: 68yof who presents for assessment. continues to have low back, bilateral lower extremity pain. imaging reviewed, which shows moderate to severe stenosis from l2-5. uses percocet and gabapentin. denies adverse med side effects. 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 - Type 1 diabetes mellitus with ketoacidosis without coma (ICD-10) Kidney failure ?N19 - Unspecified kidney failure (ICD-10) Hypertension ?I10 - Essential (primary) hypertension (ICD-10) Surgical History History of cholecystectomy ?Z90.49 - Acquired absence of other specified parts of digestive tract (ICD-10) History of arthroscopy of left shoulder ?Z98.890 - Other specified postprocedural states (ICD-10) H/O hand surgery ?Z98.890 - Other specified postprocedural states (ICD-10) H/O section ?Z98.891 - History of uterine scar from previous surgery (ICD-10) H/O cervical spine surgery ?Z98.890 - Other specified postprocedural states (ICD-10) History of tonsillectomy and adenoidectomy ?Z90.89 - Acquired absence of other organs (ICD-10) History of carpal tunnel release of both wrists ?Z98.890 - Other specified postprocedural states (ICD-10) H/O: hysterectomy ?Z90.710 - Acquired absence of both cervix and uterus (ICD-10) Kidney transplant recipient ?Z94.0 - Kidney transplant status (ICD-10) Social History Smoking status: Never smoker Meds Home Medications and Allergies Home Medications ?Medication ?Instructions ?Recorded ?Confirmed ?Type OSCAL 11/23/22 History atorvastatin 40 mg tablet 40 mg PO .HS 11/23/22 04/20/23 History dulaglutide 1.5 mg/0.5 mL 1.5 mg subcut QWEEK 11/23/22 04/20/23 History subcutaneous pen injector (Trulicity) empagliflozin 25 mg tablet 25 mg PO DAILY 11/23/22 04/20/23 History (Jardiance) ferrous sulfate 325 mg (65 mg mg 11/23/22 History iron) tablet gabapentin 600 mg tablet mg PO TID 11/23/22 History insulin aspart U-100 100 unit/mL 30 unit subcut TID 11/23/22 04/20/23 History (3 mL) subcutaneous pen (Novolog FlexPen U-100 Insulin aspart) mycophenolate mofetil 500 mg tablet 800 mg PO BID 11/23/22 04/20/23 History oxycodone-acetaminophen 7.5 mg-325 1 tab PO TID PRN pain 11/23/22 04/20/23 History mg tablet (Endocet) sertraline 100 mg tablet 100 mg PO DAILY 11/23/22 04/20/23 History tacrolimus 1 mg capsule, 3 mg PO Q12H 11/23/22 04/20/23 History immediate-release baclofen 10 mg tablet 10 mg PO TID PRN muscle spasm #90 03/03/23 04/20/23 Rx tabs oxycodone-acetaminophen 7.5 mg-325 1 tab PO TID PRN pain #90 tabs 03/03/23 04/20/23 Rx mg tablet (Percocet) oxycodone-acetaminophen 7.5 mg-325 1 tab PO TID PRN pain #90 tabs 04/08/23 04/20/23 Rx mg tablet (Percocet) semaglutide 0.25 mg or 0.5 mg (2 0.25 mg subcut QWEEK 04/20/23 04/20/23 History mg/3 mL) subcutaneous pen injector (Ozempic) semaglutide 0.25 mg or 0.5 mg (2 0.25 mg subcut QWEEK 04/20/23 04/20/23 History mg/3 mL) subcutaneous pen injector (Ozempic) oxycodone-acetaminophen 7.5 mg-325 1 tab PO TID PRN pain #90 tabs 04/29/23 Rx mg tablet (Percocet) oxycodone-acetaminophen 7.5 mg-325 1 tab PO TID PRN pain #90 tabs 06/02/23 Rx mg tablet (Endocet) oxycodone-acetaminophen 7.5 mg-325 1 tab PO TID PRN pain #90 tabs 07/08/23 Rx mg tablet (Percocet) oxycodone-acetaminophen 7.5 mg-325 1 tab PO TID PRN pain #90 tabs 08/05/23 Rx mg tablet (Percocet) oxycodone-acetaminophen 7.5 mg-325 1 tab PO TID PRN pain #90 tabs 09/06/23 Rx mg tablet (Endocet) oxycodone-acetaminophen 7.5 mg-325 1 tab PO TID PRN pain #90 tabs 09/06/23 Rx mg tablet (Percocet) Allergies Allergy/AdvReac Type Severity Reaction Status Date / Time No Known Drug Allergies Allergy Verified 01/26/23 10:17 Exam Narrative Exam Narrative: Psych-alert and oriented x 3. Attentive and appropriate, constitutionally normal, displays normal mood and affect per situation.? There are no obvious deficits in memory, reasoning, or intellect.? Skin-no obvious rashes, bruising, erythema noted to the patient's area of pain. Extremities- extremities are warm with minimal edema and palpable pulses. Lumbar-no significant tenderness to palpation noted in the lumbar spine and paraspinal musculature.? Pain is elicited with extension, and lateral rotation of the lumbar spine. Range of motion is slightly diminished with these motions due to pain. Coordination remains intact.? Gait remains non-antalgic. Assessment and Plan Assessment and Plan (1) Lumbar stenosis with neurogenic claudication: (2) Lumbar spondylosis: Plan 68yof who presents for assessment. discussed that she was not vertiflex candidate because of insurance. however, discussed that given failure to respond to conservative measures, she may be candidate for spinal cord stim. provided her with information about this. she will think about it and discuss with family. medications reviewed. notes some dizziness with gabapentin dose of 900 tid, but states that she previously tolerated 600 qid well. will go back to gabapentin 600 qid dosing. follow up in 6-8 weeks.
== END 2023-09-27 14:47 | disposition home or self-care (01) ==
LOC: PM 14:46
PROVIDERS: PCP Nurse Practitioner Family; Visit Provider Anesthesiology
DX: M48.062 Spinal stenosis, lumbar region with neurogenic claudication (principal); M47.816 Spondylosis without myelopathy or radiculopathy, lumbar region
CPT/HCPCS: G0463

== ENCOUNTER 2023-11-03 14:40 | Outpatient (OUT) | payer MEDICARE, SELFPAY ==
--- NOTE | 2023-11-03 15:17 | P.CN_ITS ---
Consult Note: HPI Data of Consult Patient: known to practice within the last 3 years Consult date: 09/27/23 Requesting Physician: Qiana Chiu NP Primary Care Provider: YOLANDA MAGAÑA Consult Narrative Reason for consult: low back, bilateral lower extremity pain Narrative: 68yof who presents for assessment. continues to have low back, bilateral lower extremity pain. imaging reviewed, which shows moderate to severe stenosis from l2-5. uses percocet, baclofen, and gabapentin. denies adverse med side effects. 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 - Type 1 diabetes mellitus with ketoacidosis without coma (ICD-10) Kidney failure ?N19 - Unspecified kidney failure (ICD-10) Hypertension ?I10 - Essential (primary) hypertension (ICD-10) Surgical History History of cholecystectomy ?Z90.49 - Acquired absence of other specified parts of digestive tract (ICD- 10) History of arthroscopy of left shoulder ?Z98.890 - Other specified postprocedural states (ICD-10) H/O hand surgery ?Z98.890 - Other specified postprocedural states (ICD-10) H/O section ?Z98.891 - History of uterine scar from previous surgery (ICD-10) H/O cervical spine surgery ?Z98.890 - Other specified postprocedural states (ICD-10) History of tonsillectomy and adenoidectomy ?Z90.89 - Acquired absence of other organs (ICD-10) History of carpal tunnel release of both wrists ?Z98.890 - Other specified postprocedural states (ICD-10) H/O: hysterectomy ?Z90.710 - Acquired absence of both cervix and uterus (ICD-10) Kidney transplant recipient ?Z94.0 - Kidney transplant status (ICD-10) Social History Smoking status: Never smoker Meds Home Medications and Allergies Home Medications ?Medication ?Instructions ?Recorded ?Confirmed ?Type OSCAL 11/23/22 History atorvastatin 40 mg tablet 40 mg PO .HS 11/23/22 04/20/23 History dulaglutide 1.5 mg/0.5 mL 1.5 mg subcut QWEEK 11/23/22 04/20/23 History subcutaneous pen injector (Trulicity) empagliflozin 25 mg tablet 25 mg PO DAILY 11/23/22 04/20/23 History (Jardiance) ferrous sulfate 325 mg (65 mg mg 11/23/22 History iron) tablet gabapentin 600 mg tablet mg PO TID 11/23/22 History insulin aspart U-100 100 unit/mL 30 unit subcut TID 11/23/22 04/20/23 History (3 mL) subcutaneous pen (Novolog FlexPen U-100 Insulin aspart) mycophenolate mofetil 500 mg tablet 800 mg PO BID 11/23/22 04/20/23 History oxycodone-acetaminophen 7.5 mg-325 1 tab PO TID PRN pain 11/23/22 04/20/23 History mg tablet (Endocet) sertraline 100 mg tablet 100 mg PO DAILY 11/23/22 04/20/23 History tacrolimus 1 mg capsule, 3 mg PO Q12H 11/23/22 04/20/23 History immediate-release baclofen 10 mg tablet 10 mg PO TID PRN muscle spasm #90 03/03/23 04/20/23 Rx tabs oxycodone-acetaminophen 7.5 mg-325 1 tab PO TID PRN pain #90 tabs 03/03/23 04/20/23 Rx mg tablet (Percocet) oxycodone-acetaminophen 7.5 mg-325 1 tab PO TID PRN pain #90 tabs 04/08/23 04/20/23 Rx mg tablet (Percocet) semaglutide 0.25 mg or 0.5 mg (2 0.25 mg subcut QWEEK 04/20/23 04/20/23 History mg/3 mL) subcutaneous pen injector (Ozempic) semaglutide 0.25 mg or 0.5 mg (2 0.25 mg subcut QWEEK 04/20/23 04/20/23 History mg/3 mL) subcutaneous pen injector (Ozempic) oxycodone-acetaminophen 7.5 mg-325 1 tab PO TID PRN pain #90 tabs 04/29/23 Rx mg tablet (Percocet) oxycodone-acetaminophen 7.5 mg-325 1 tab PO TID PRN pain #90 tabs 06/02/23 Rx mg tablet (Endocet) oxycodone-acetaminophen 7.5 mg-325 1 tab PO TID PRN pain #90 tabs 07/08/23 Rx mg tablet (Percocet) oxycodone-acetaminophen 7.5 mg-325 1 tab PO TID PRN pain #90 tabs 08/05/23 Rx mg tablet (Percocet) oxycodone-acetaminophen 7.5 mg-325 1 tab PO TID PRN pain #90 tabs 09/06/23 Rx mg tablet (Endocet) oxycodone-acetaminophen 7.5 mg-325 1 tab PO TID PRN pain #90 tabs 09/06/23 Rx mg tablet (Percocet) oxycodone-acetaminophen 7.5 mg-325 1 tab PO TID PRN pain #90 tabs 10/07/23 Rx mg tablet (Percocet) Allergies Allergy/AdvReac Type Severity Reaction Status Date / Time No Known Drug Allergies Allergy Verified 01/26/23 10:17 Exam Narrative Exam Narrative: Psych-alert and oriented x 3. Attentive and appropriate, constitutionally normal, displays normal mood and affect per situation.? There are no obvious deficits in memory, reasoning, or intellect.? Skin-no obvious rashes, bruising, erythema noted to the patient's area of pain. Extremities- extremities are warm with minimal edema and palpable pulses. Lumbar-no significant tenderness to palpation noted in the lumbar spine and paraspinal musculature.? Pain is elicited with extension, and lateral rotation of the lumbar spine. Range of motion is slightly diminished with these motions due to pain. Coordination remains intact.? Gait remains non-antalgic. Constitutional Documenting provider has reviewed patient's vital signs: yes Common normals: no apparent distress, oriented x3, healthy appearing, alert and well nourished General appearance: cooperative HENMT Common normals: normocephalic, hearing grossly normal bilaterally and moist oral mucous membranes Head and scalp: normocephalic Eye Common normals: PERRL Pupil: PERRL Neck & C-Spine Common normals: full ROM General: normal visual inspection Chest Common normals: inspection of chest normal Respiratory Common normals: normal respiratory effort, no retractions and no use of accessory muscles Neuro Common normals: oriented x3, CN's II-XII intact bilaterally, moves all extremities, no focal motor deficits, no sensory deficits noted and deep tendon reflexes 2+ bilaterally Sensorium/orientation: alert Motor exam: strength 5/5 throughout and no movement abnormalities noted Psych Common normals: mental status grossly normal, thought process normal, cooperative, affect normal, speech normal and activity/motor behavior normal Speech: normal speech Thought process: normal thought process Results Additional Findings Additional findings: If on a controlled substance or opioids, I have checked an [place] report on this patient and there are no aberrancies noted in the prescribing history.??If on a controlled substance or opioid a drug screen was completed and reviewed within the last year, and if there has not been a drug screen completed we ordered one today to monitor higher risk, state monitored pain medication use. As part of providing excellent, safe, comprehensive care, the following was completed at our patient's visit: 1. A medication reconciliation and review to ensure accurate knowledge of current/active medications, including asking our patients to inform us about any [id number] medications or herbal remedies/nutritional supplements/alternative remedies. 2. A review to specifically ensure our patients have had annual screening for screening for depression, screening for tobacco use, and screening for unhealthy alcohol use. For concerning screenings had a discussion with the patient, provided patient education, and recommended follow-up with primary care provider when appropriate. If patient noted with a risk of falling, they received education on strength, gait, and balance training to prevent future risk of falling. Assessment and Plan Assessment and Plan (1) Lumbar stenosis with neurogenic claudication: (2) Lumbar spondylosis: Plan 68yof who presents for assessment. not a vertiflex candidate, she may be candidate for spinal cord stim. provided her with information about this at last visit but she is not interested. continue current medications. discussed risks do not outweigh benefits and we will not be increasing her percocet dose or frequency. f/u 3 months, sooner if needed
== END 2023-11-03 14:41 | disposition home or self-care (01) ==
PROVIDERS: PCP Nurse Practitioner Family; Visit Provider Nurse Practitioner
DX: M48.062 Spinal stenosis, lumbar region with neurogenic claudication (principal); M47.816 Spondylosis without myelopathy or radiculopathy, lumbar region
CPT/HCPCS: G0463

== ENCOUNTER 2024-02-10 13:38 | Outpatient (OUT) | payer MEDICARE, SELFPAY ==
--- OUTSIDE RECORDS SUMMARY | 2024-02-10 14:00 | XMS_ITS | CCD ---
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 Name Role Phone Airam Thomas Unavailable Sara Adhikari Unavailable DR MARYCRUZ GUZMAN Primary Care Unavailable LAKSHMIPATHY ., NARENDRANATH Admitting Kaylee vailable LAKSHMIPATHY ., NARENDRANATH Attending Kaylee vailable LAKSHMIPATHY ., NARENDRANATH Consulting Kaylee vailable LAKSHMIPATHY ., NARENDRANATH Admitting Kaylee vailable LAKSHMIPATHY ., NARENDRANATH Attending Kaylee vailable DR MARYCRUZ GUZMAN Primary Care Unavailable LAKSHMIPATHY ., NARENDRANATH Consulting Kalyee vailable LAKSHMIPATHY ., NARENDRANATH Admitting Kaylee vailable LAKSHMIPATHY ., KMENDCHRISTOPHEATH Attending Kaylee vailable DR MARYCRUZ GUZMAN Primary Care Unavailable LAKSHMIPATHY ., NARENDRANATH Consulting Kaylee vailable SHADI KNOX Consulting Unavailable LAKSHMIPATHY ., NARENDRANATH Admitting Kaylee vailable LAKSHMIPATHY ., KMENDRANATH Attending Kaylee vailable DR MARYCRUZ GUZMAN Primary Care Unavailable LAKSHMIPATHY ., NARENDRANATH Admitting Kaylee vailable LAKSHMIPATHY ., KMENDRANATH Attending Kaylee vailable DR MARYCRUZ GUZMAN Primary Care Unavailable MANUEL .MEL Consulting Unavailable ALLIE ., DR OSIRIS Rajput Admitting Unavailable KELLEY ., DR OSIRIS Rajput Attending Unavailable DR MARYCRUZ GUZMAN Primary Care Unavailable EYAL .ELIESER Consulting Unavailable KELLEY ., DR OSIRIS Rajput Admitting Unavailable KELLEY ., DR OSIRIS Rajput Attending Unavailable DR MARYCRUZ GUZMAN Primary Care Unavailable KELLEY ., DR OSIRIS Rajput Consulting Unavailable WHITMOREKATHRYN WALKERLE Consulting Unavailable KELLEY ., DR OSIRIS Rajput Admitting Unavailable KELLEY ., DR OSIRIS Rajput Attending Unavailable THOMAS, DR MARYCRUZ Moreno Primary Care Unavailable EYAL ., ELIESER Consulting Unavailable ALLIE ., DR OSIRIS Rajput Admitting Unavailable ALLIE ., DR OSIRIS Rajput Attending Unavailable THOMAS, DR MARYCRUZ Moreno Primary Care Unavailable BIRCH ., ELIESER Consulting Unavailable NON STAFF Primary Care Provider Unavailjus e MURALI Thomas Attending Provider Airam Thomas Attending Unavailable Airam Thomas Admitting Unavailable NON STAFF Primary Care Unavailable Thomas SAVINGS TELLER-SAMPLER TESTER, Marycruz Ervin Primary Care Provider Berhane ANDERSON, Tra Rowe Attending Unavailable MARYCRUZ GUZMAN Referring Unavailable MARYCRUZ GUZMAN Primary Care Unavailable MACARIO HOLDEN Admitting Unavailable MACARIO HOLDEN Attending Unavailable MARYCRUZ GUZMAN Primary Care Unavailable Medications Current Medications Medication [...] SQ Daily for 90 days Sep, Active acetaminophen 325 mg / HYDROcodone bitartrate 5 mg oral tablet (2 sources) Opioid Agonist Start: 08-21-2019 take 1 tablet by mouth every four to six hours Hydrocodone-Acetaminophen ([place]) 5-325 mg tablet Active 1 - 2 TAB PO EVERY 4-6 HOURS 30 4 August 21, 2019 acetaminophen 325 mg / oxyCODONE hydrochloride 7.5 mg oral tablet (4 sources) Opioid Agonist Start: 10-04-2023 take 1 tablet by mouth three times daily Oxycodone-Acetaminophen Active 1 TAB PO Three times daily October 04, 2023 12:00am Start: 08-08-2019 End: 10-04-2023 take 1 tablet by mouth three times daily Oxycodone-Acetaminophen Discontinued 1 T AB PO Three times daily August 08, 2019 1:00am October 04, 2023 10:40am take 1 tablet by nirali th twice daily as needed oxyCODONE-acetaminophen (PERCOCET) 10-32 5 mg per tablet oxycodone-acetaminophen 10 mg-325 mg tablet TAKE 1 TABLET BY MOUTH TWICE DAILY NEEDED 0 Active aspirin 81 mg delayed release oral tablet (20 sources) Platelet Aggregation Inhibitor, Nonsteroidal Anti-inflammatory Drug Start: 08-08-2019 Aspirin (Kory Lo w Dose Aspirin) 81 mg Tablet,Delayed Release (Dr/Ec) Active 81 MG PO Every morning August 08, 2019 1:00am Aspirin 81 MG as directed Orally Active b complex vitamins capsule (1 source) Start: 04-06-2023 take 1 capsule by mouth in the morning b complex vitamins capsule Indications: Diabetic polyneuropathy associated with type 2 diabetes mellitus (CMS-HCC) Take 1 capsule by mouth in the morning. 90 capsule 3 04/06/2023 Active baclofen 10 mg oral tablet (3 sources) gamma-Aminobuty bobby Acid-ergic Agonist Start: 04-06-2023 take 1 tablet by mouth three times daily baclofen (LIORESAL) 10 mg tablet Indications: Diabetic polyneuropathy associated with type 2 diabetes mellitus (CMS-HCC) Take 1 tablet (10 mg total) by mouth 3 (three) times a day. 270 tablet 1 04/06/2023 Active Start: 08-08-2019 take 20 mg by mouth once daily at bedtime Baclofen Active 20 MG PO Daily at bedtime August 08, 2019 1:00am calcium carbonate 1250 mg / cholecalciferol 200 unt oral tablet (2 sources) Vitamin D Start: 08-08-2019 take 1 tablet by mouth once daily in the morning Calcium Carbonate-Vitamin D3 Active 1 TAB PO Every morning August 08, 2019 1:00am cholecalciferol 0.05 mg oral capsule (1 source) Vitamin D Start: 10-04-2023 take 2000 [IU] by mouth once daily Cholecalciferol (Vitamin D3) Active 2000 UNIT PO Daily October 04, 2023 12:00am cyclobenzaprine hydrochloride 10 mg oral tablet (2 sources) Muscle Relaxant Start: 08-08-2019 take 10 mg by mouth three times daily Cyclobenzaprine Active 10 MG PO Three times daily August 08, 2019 1:00am DAILY-JAYLENE, WITH FOLIC ACID, 400 mcg tablet (1 source) Start: 09-18-2022 take 1 tablet by mouth in the morning DAILY-JAYLENE, WITH FOLIC ACID, 400 mcg tablet Take 1 tablet by mouth in the morning. 0 09/18/2022 Active diclofenac sodium 0.01 mg/mg topical gel (19 sources) Nonsteroidal Anti-inflammatory Drug Start: 10-04-2023 apply 2 g topically twice daily Diclofenac Sodium Active TOPICAL October 04, 2023 12:00am FreeTextSi grams to affected area Transdermal Twice a day; Note: Source Status: Taking; Refills: 0; Provider: Zeynep Ruiz ( ) Start: 10-25-2022 diclofenac sod ium (VOLTAREN) 1 % gel Indications: Osteoarthritis of both hands, unspecified osteoarthritis type APPLY TOPICALLY 4 TIMES A DAY 400 g 1 10/25/2022 Active Diclofenac Sodiu m 1 % 2 grams to affected area Transdermal Twice a day for 30 Active diclofenac sodium-menthoL 1.5-10 % combo pack (1 source) diclofenac sodium-menthoL 1.5-10 % combo pack as directed Externally QID 0 Active empagliflozin 25 mg oral tablet (20 sources) Sodium-Glucose Cotransporter 2 Inhibitor Start: take 25 mg by mouth once daily in the morning Empagliflozin Active 25 MG PO Every morning August 08, 2019 1:00am take 1 tablet by mouth once sharon y empagliflozin (JARDIANCE) 10 mg tablet tablet 1 tablet Orally Once a day for 30 day(s) 0 Active ferrous sulfate 325 mg oral tablet (20 sources) Start: 08-08-2019 End: 08-12-2023 take 325 mg by mouth twice daily Ferrous Sulfate Active 325 MG PO Twice daily August 08, 2019 1:00am take 1 tablet by nirali th every twenty-four hours Ferrous Sulfate 325 (65 Fe) MG 1 tablet Orally Once a day Active take 1 tablet by mouth once sharon y Ferrous Sulfate 325 (65 Fe) MG 1 tablet Orally Once a day Active flash glucose scanning reade r (FREESTYLE ENEDELIA 14 DAY READER) misc (1 source) flash glucose sc anning reader (FREESTYLE ENEDELIA 14 DAY READER) misc FreeStyle Enedelia 14 Day [place] 0 Active flash glucose sensor (FREEST YLE ENEDELIA 14 DAY SENSOR) kit (1 source) flash glucose se nsor (FREESTYLE ENEDELIA 14 DAY SENSOR) kit FreeStyle Enedelia 14 Day Sensor kit USE DIRECTED CHANGE EVERY 14 DAYS 0 Active flash glucose sensor (FreeSt yle Enedelia 2 Sensor) (1 source) Start: 10-04-2023 flash glucose sensor (FreeStyle Enedelia 2 Sensor) Active .ROUTE October 04, 2023 12:00am FreeStyle Enedelia 2 Sensor - (18 sources) [...] In Vitro bid for 90 days Active gabapentin 600 mg oral tablet (3 sources) Anti-epileptic Agent Start: 08-08-2019 take 600 mg by mouth three times daily Gabapentin Active 600 MG PO Three times daily August 08, 2019 1:00am insulin aspart protamine, human 70 unt/ml / insulin aspart, human 30 unt/ml injectable suspension (1 source) Insulin Analog insulin asp prt-insulin aspart (NovoLOG 70/30) 100 unit/mL (70-30) injection Inject under the skin 2 (two) times a day before meals. 0 Active Insulin Aspart U-100 (Novolog Flexpen U-100 Insulin) 100 unit/mL (3 mL) insulin pen (2 sources) Start: 08-17-2023 Insulin Aspart U-100 (Novolog Flexpen U-100 Insulin) 100 unit/mL (3 mL) insulin pen Active 0 SUBCUT .COMPLEX 120 August 17, 2023 5:11pm subcutaneously; FreeTextSig: INJECT 25, 30, 35 UNITS SUBCUTANEOUSLY BASED ON MEAL SIZE BEFORE MEALS. CORRECTIVE SCALE 1:10 BEFORE MEALS 3 TIMES A DAY (AT BEDTIME IF GREATER THAN 200 HALF DOSE) DIRECTED, UP TO 120 UNITS PER DAY.; Note: Source Status: Taking; Refills: 3; Qty: 120 Milliliter; Provider: William Alegria ( ) Start: 08-17-2023 End: 08-17-2023 Insulin Aspart U-100 (Novolo g Flexpen U-100 Insulin) 100 unit/mL (3 mL) insulin pen Discontinued 0 SUBCUT .COMPLEX August 17, 2023 1:00am August 17, 2023 5:28pm subcutaneously; FreeTextSig: INJECT 25, 30, 35 UNITS SUBCUTANEOUSLY BASED ON MEAL SIZE BEFORE MEALS. CORRECTIVE SCALE 1:10 BEFORE MEALS 3 TIMES A DAY (AT BEDTIME IF GREATER THAN 200 HALF DOSE) DIRECTED, UP TO 120 UNITS PER DAY.; Note: Source Status: Taking; Refills: 3; Qty: 120 Milliliter; Provider: William Alegria ( ) 3 ml insulin degludec 200 unt/ml pen injector (20 sources) Insulin Analog Tresiba FlexTouc h 200 UNIT/ML INJECT 60 UNITS SUBCUTANEOUSLY ONCE DAILY. MAY TITRATE UP TO 70 UNITSPER DAY DIRECTED for 90 Active inject 62 [IU] by shi bcutaneous injection once daily in the morning Tresiba FlexTouch 200 UNIT/ML 62 units Subcutaneous qam (titrate up to 90 units/day) stop lantus Active Insulin Degludec (Tresiba Flextouch U-200) 200 unit/mL (3 mL) insulin pen (2 sources) Start: 08-17-2023 inject 60 [IU] by subcutaneous injection once daily in the morning, then inject 70 [IU] by subcutaneous injection once daily Insulin Degludec (Tresiba Flextouch U-200) 200 unit/mL (3 mL) insulin pen Active 60 UNIT SUBCUT Every morning 36 90 August 17, 2023 5:25pm FreeTextSig: INJECT 60 UNITS SUBCUTANEOUSLY ONCE DAILY. MAY TITRATE UP TO 70 UNITS PER DAY DIRECTED; Note: Source Status: Taking; Refills: 1; Qty: 36 Milliliter; Provider: William Alegria ( ) Start: 08-17-2023 End: 08-17-2023 inject 60 [IU] by subcutaneous injection once daily in the morning, then inject 70 [IU] by subcutaneous injection once daily Insulin Degludec (Tresiba Flextouch U-200) 200 unit/mL (3 mL) insulin pen Discontinued 36 UNIT SUBCUT Every morning August 17, 2023 1:00am August 17, 2023 5:28pm FreeTextSig: INJECT 60 UNITS SUBCUTANEOUSLY ONCE DAILY. MAY TITRATE UP TO 70 UNITS PER DAY DIRECTED; Note: Source Status: Taking; Refills: 1; Qty: 36 Milliliter; Provider: William Alegria ( ) insulin isophane, human 100 unt/ml injectable suspension (5 sources) Start: 01-21-2023 NovoLIN N ReliOn 100 UNIT/ML 20 units at same time as steroid Subcutaneous as directed for 30 days Jan, Active isopropyl alcohol 0.7 ml/ml medicated pad (1 source) alcohol swabs pa ds, medicated BD Alcohol Swabs 0 Active magnesium oxide 400 mg oral tablet (1 source) Start: 04-06-2023 take 1 tablet by mouth in the morning magnesium oxide (MAGOX) 400 mg tablet Indications: Diabetic polyneuropathy associated with type 2 diabetes mellitus (CMS-HCC) Take 1 tablet (400 mg total) by mouth in the morning. 90 tablet 3 04/06/2023 Active methylPREDNISolone 4 mg oral tablet (5 sources) Corticosteroid Start: 10-27-2022 Medrol 4 MG as directed Orally for 7 days October, Active mycophenolate mofetil 250 mg oral capsule (20 sources) Start: 08-08-2019 take 1000 mg by mouth every twelve hours Mycophenolate Mofetil Active 1000 MG PO Q12H August 08, 2019 1:00am take 4 capsules by mouth twice d aily mycophenolate (CELLCEPT) 250 mg capsule 4 capsules Orally BID for 90 days 0 Active take 2 tablets by mo ut in the morning, then take 2 tablets by mouth at bedtime mycophenolate (CELLCEPT) 500 mg tablet Take 2 tablets (1,000 mg total) by mouth in the morning and 2 tablets (1,000 mg total) before bedtime. 0 Active oxyCODONE hydrochloride 5 mg oral tablet (17 sources) Opioid Agonist take 1 tablet by mouth every six hours oxyCODONE HCl 5 MG 1 tablet as needed Orally every 6 hrs Active Ozempic (2 MG/DOSE) 8 MG/3ML (1 source) Start: inject 1 mg by subcutaneous injection every week Ozempic (2 MG/DOSE) 8 MG/3ML 2mg Subcutaneous once weekly for 84 days stope ozempic 1mg Nov, Active OZEMPIC 2 mg/dose (8 mg/3 mL) pen injector (1 source) Start: OZEMPIC 2 mg/dose (8 mg/3 mL) pen injector pen needle, diabetic (BD Anuja 2nd Gen Pen Needle) (1 source) Start: 024 pen needle, diabetic (BD Anuja 2nd Gen Pen Needle) Active .ROUTE October 04, 2023 12:00am rosuvastatin calcium 10 mg oral tablet (2 sources) HMG-CoA Reductase Inhibitor Start: 023 take 1 tablet by mouth in the morning rosuvastatin (CRESTOR) 10 mg tablet Indications: Mixed hyperlipidemia TAKE 1 TABLET (10 MG TOTAL) BY MOUTH IN THE MORNING 90 tablet 1 04/12/2023 Active saccharomyces boulardii 250 mg oral capsule (1 source) Start: 023 take 1 capsule by mouth once daily Saccharomyces boulardii (FLORASTOR) 250 mg capsule Indications: Diabetic polyneuropathy associated with type 2 diabetes mellitus (CMS-HCC) Take 1 capsule (250 mg total) by mouth Daily at 0300. 90 capsule 3 04/06/2023 Active Semaglutide (Ozempic) 2 mg/dose (8 mg/3 mL) pen injector (1 source) Start: 024 inject 2 mg by subcutaneous injection every week Semaglutide (Ozempic) 2 mg/dose (8 mg/3 mL) pen injector Active MG SUBCUT October 04, 2023 12:00am FreeTextSig: INJECT 2MG SUBCUTANEOUSLY ONCE WEEKLY; Note: Source Status: Taking; Refills: 3; Qty: 9 Milliliter; Provider: William Alegria ( ) sertraline 100 mg oral tablet (4 sources) Serotonin Reuptake Inhibitor Start: take 100 mg by mouth once daily at bedtime Sertraline Active 100 MG PO Daily at bedtime August 08, 2019 1:00am take 1 tablet by mouth in the mo rning sertraline (ZOLOFT) 50 mg tablet Take 1 tablet (50 mg total) by mouth in the morning. 0 Active tacrolimus 1 mg oral capsule (20 sources) Calcineurin Inhibitor Immunosuppressant Start: 08-08-2019 take 2 mg by mouth once daily in the morning Tacrolimus Active 2 MG PO Every morning August 08, 2019 1:00am Start: 08-08-2019 take 1 mg by mouth o nce daily at bedtime Tacrolimus Active 1 MG PO Daily at bedtime August 08, 2019 1:00am tacrolimus (PROG FAITH) 1 mg capsule Take 2 capsules (2 mg total) by mouth in the morning and 2 capsules (2 mg total) at noon and 2 capsules (2 mg total) in the evening. 0 Active traZODone hydrochloride 100 mg oral tablet (2 sources) Serotonin Reuptake Inhibitor Start: 03-04-2023 take 1 tablet by mouth once daily traZODone (DESYREL) 100 mg tablet Take 1 tablet (100 mg total) by mouth nightly. 90 tablet 1 03/29/2023 Active Vitamin B Complex (1 source) vitamin B comple x (B COMPLEX 1 ORAL) as directed Orally 0 Active Vitamin D3 2000 Unit (17 sources) take 1 capsule by mouth once daily Vitamin D3 2000 Unit 1 capsule Orally Once a day Active Completed/Discontinued Medications Medication Drug Class(es) Dates Sig (Normalized) Sig (Original) atorvastatin 40 mg oral tablet (19 sources) HMG-CoA Reductase Inhibitor Start: 08-08-2019 End: 10-04-2023 take 40 mg by mouth once daily in the morning Atorvastatin Discontinued 40 MG PO Every morning August 08, 2019 1:00am October 04, 2023 10:36am 0.5 ml dulaglutide 3 mg/ml auto-injector (2 sources) GLP-1 Receptor Agonist Start: 08-08-2019 End: 10-04-2023 inject 1 dose by subcutaneous injection every week Dulaglutide Discontinued 1 DOSE SUBCUT every week August 08, 2019 1:00am October 04, 2023 10:37am fenofibrate 48 mg oral tablet (2 sources) Peroxisome Proliferator Receptor alpha Agonist Start: 08-08-2019 End: 10-04-2023 take 48 mg by mouth once daily in the morning Fenofibrate Nanocrystallized Discontinued 48 MG PO Every morning August 08, 2019 1:00am October 04, 2023 10:37am FreeStyle Enedelia 14 Day [place] - (8 sources) Start: 08-29-2020 FreeStyle Enedelia 14 Day [place] - as directed Daily for 365 days Aug, Not-Taking Start: 08-29-2020 FreeStyle Libr e 14 Day [place] - as directed Daily for 365 days .Aug, Active FreeStyle Enedelia 14 Day Senso r - (8 sources) FreeStyle Enedelia 14 Day Sensor - as directed SQ change every 14 days Not-Taking FreeStyle Enedelia 14 Day Sensor - as directed SQ change every 14 days Active insulin aspart, human (20 sources) Insulin Analog Start: 08-08-2019 End: 08-17-2023 inject 1 dose by subcutaneous injection three times daily Insulin Aspart U-100 Discontinued 1 DOSE SUBCUT Three times daily August 08, 2019 1:00am August 17, 2023 5:05pm Start: 08-08-2019 inject 1 dose by sub cutaneous injection three times daily Insulin Aspart U-100 Active 1 DOSE SUBCUT Three times daily August 08, 2019 12:00am insulin aspart U -100 (NovoLOG FlexPen U-100 Insulin) 100 unit/mL (3 mL) insulin pen as directed Subcutaneous 0 Active NovoLOG FlexPen 100 UNIT/ML 25,30,35 units [...] Subcutaneous AC, HS Active 3 ml insulin glargine 100 unt/ml pen injector (2 sources) Insulin Analog Start: 08-08-2019 End: 08-17-2023 inject 50 [IU] by subcutaneous injection twice daily Insulin Glargine Discontinued 50 UNITS SUBCUT Twice daily August 08, 2019 1:00am August 17, 2023 5:08pm pioglitazone 15 mg oral tablet (2 sources) Peroxisome Proliferator Receptor alpha Agonist, Peroxisome Proliferator Receptor gamma Agonist, Thiazolidinedione Start: 08-08-2019 End: 10-04-2023 take 15 mg by mouth once daily at bedtime Pioglitazone Discontinued 15 MG PO Daily at bedtime August 08, 2019 1:00am October 04, 2023 10:38am 0.25 mg, 0.5 mg dose 1.5 ml semaglutide 1.34 mg/ml pen injector (8 sources) Ozempic (0.25 or 0.5 MG/DOSE) 2 MG/1.5ML INJECT 0.5MG SUBCUTANEOUSLYONCE WEEKLY for 84 Not-Taking sulfamethoxazole 800 mg / trimethoprim 160 mg oral tablet (2 sources) Dihydrofolate Reductase Inhibitor Antibacterial, Sulfonamide Antimicrobial Start: 08-21-2019 End: 10-04-2023 take 1 tablet by mouth twice daily Sulfamethoxazole-Tri methoprim (Bactrim Ds) 800-160 mg tablet Discontinued 1 TAB PO Twice daily 10 August 21, 2019 12:00am October 04, 2023 10:38am triamcinolone acetonide 40 mg/ml injectable suspension (20 sources) Corticosteroid Start: 07-22-2022 Kenalog-40 Jul, 40 mg Start: 07-22-2022 Kenalog-40 Jul, 20 mg Problems Active Problems Problem Classification Problem Date Documented Date Episodic/Chronic Administrative/socia l admission (20 sources) Dietary management surveillance; Translations: [Dietary counseling and surveillance] Onset: 08-05-2021 Resolved: 12-04-2021 Episodic Anxiety disorders (1 source) Anxiety; Translations: [Anxiety disorder, unspecified] Onset: 05-18-2022 05-18-2022 Chronic Chronic kidney disease (7 sources) Kidney transplant status; Translations: [Chronic kidney disease, stage 2 (mild)] Onset: 08-05-2021 Resolved: 12-04-2021 Chronic Deficiency and other anemia (1 source) Anemia; Translations: [Anemia, unspecified] 08-12-2023 Episodic Diabetes mellitus with complications (20 sources) Disorder of kidney due to diabetes mellitus; Translations: [Type 2 diabetes mellitus with diabetic nephropathy] Onset: 01-11-2018 Resolved: 12-04-2021 Chronic Diabetes mellitus without complication (2 sources) Type 2 diabetes mellitus without complications; Translations: [Diabetes mellitus] Onset: 03-28-2013 05-18-2022 Chronic Disorders of lipid metabolism (20 sources) Hyperlipidemia; Translations: [Hyperlipidemia, unspecified] Onset: 03-28-2013 Resolved: 12-04-2021 Chronic Essential hypertension (20 sources) Hypertensive disorder; Translations: [Essential (primary) hypertension] Onset: 03-28-2013 Resolved: 12-04-2021 Chronic Genitourinary symptoms and ill-defined conditions (1 source) Proteinuria, unspecified Episodic Immunity disorders (1 source) Immunosuppression; Translations: [Immunodeficiency, unspecified] Onset: 04-11-2013 05-18-2022 Chronic Menopausal disorders (17 sources) Menopause present; Translations: [Menopausal and female climacteric states] Chronic Nutritional deficiencies (20 sources) Vitamin D deficiency; Translations: [Vitamin D deficiency, unspecified] Onset: 08-05-2021 Resolved: 12-04-2021 Chronic Osteoarthritis (8 sources) Arthritis of hand; Translations: [Primary osteoarthritis, right hand] Chronic Osteoporosis (1 source) Osteoporosis; Translations: [Age-related osteoporosis without current pathological fracture] Onset: 10-06-2017 05-18-2022 Chronic Other acquired deformities (20 sources) Spondylolisthesis; Translations: [Spondylolisthesis, lumbar region] Episodic Other acquired deformities (17 sources) Lumbar spondylolisthesis; Translations: [Spondylolisthesis, lumbar region] Episodic Other aftercare (20 sources) Long-term current use of insulin; 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] Episodic Other aftercare (7 sources) long-term (current) use of insulin; Translations: [PENITENTIARY CURRENT USE OF INSULIN] Onset: 08-05-2021 Resolved: [...] adult; Translations: [BMI 38.0-38.9,adult] Onset: 12-04-2021 Resolved: 06-23-2022 Chronic Other nutritional; endocrine; and metabolic disorders (1 source) Body mass index (BMI) 39.0-39.9, adult Onset: 08-05-2021 Resolved: 08-05-2021 Chronic Other nutritional; endocrine; and metabolic disorders (2 sources) Body mass index (BMI) 37.0-37.9, adult Chronic Other nutritional; endocrine; and metabolic disorders (1 source) Obesity, unspecified; Translations: [Obesity, unspecified] Chronic Other nutritional; endocrine; and metabolic disorders (1 source) Morbid obesity; Translations: [Morbid (severe) obesity due to excess calories] Onset: 05-19-2022 05-19-2022 Chronic Other skin disorders (1 source) Localized swelling, mass and lump, right upper limb Episodic Residual codes; unclassified (17 sources) Noncompliance with treatment; Translations: [Patient's noncompliance with other medical treatment and regimen] Episodic Residual codes; unclassified (1 source) Other specified postprocedural states Episodic Spondylosis; intervertebral disc disorders; other back problems (6 sources) Spondylosis without myelopathy or radiculopathy, lumbar region; Translations: [Prolapsed lumbar intervertebral disc] Onset: 09-06-2015 Chronic Unclassified (3 sources) LOW BACK PAIN, UNSPECIFIED; Translations: [LOW BACK PAIN, UNSPECIFIED] Onset: 07-03-2022 Past or Other Problems Problem Classification Problem Date Documented Da te Episodic/Chronic Cancer of kidney and renal pelvis (1 source) Renal cell carcinoma; Translations: [Malignant neoplasm of unspecified kidney, except renal pelvis] Onset: 03-28-2013 Resolved: 05-19-2022 05-19-2022 Chronic Mood disorders (1 source) Mood disorders Onset: 04-06-2023 04-06-2023 Mycoses (1 source) Onychomycosis; Translations: [Tinea unguium] Onset: 01-11-2018 05-18-2022 Episodic Other and unspecified benign neoplasm (1 source) History of polyp of colon; Translations: [Personal history of colonic polyps] Onset: 08-15-2020 07-14-2023 Episodic Other and unspecified benign neoplasm (1 source) Personal history of colonic polyps; Translations: [Personal history of colonic polyps] Onset: 07-14-2023 Episodic Other and unspecified benign neoplasm (1 source) Personal history of colonic polyps Onset: 07-14-2023 Episodic Residual codes; unclassified (1 source) Insomnia; Translations: [Insomnia, unspecified] Onset: 05-18-2022 05-18-2022 Episodic Spondylosis; intervertebral disc disorders; other back problems (15 sources) Spinal stenosis, lumbar region without neurogenic claudication; Translations: [Intervertebral disc disorders with radiculopathy, lumbar region] Onset: 01-06-2022 Episodic Unclassified (1 source) LOW BACK PAIN, UNSPECIFIED; Translations: [LOW BACK PAIN, UNSPECIFIED] Onset: 09-24-2022 Results Test Name Value Interpretation Reference Range Facility ALBUMINon 12-17-2023 Albumin [Mass/Vol] 3.9 g/dL Normal 3.2-5.3 [facility] Comment on above: Performed By: #### B MP, CBC, 14503-4, 2777-1, 88192-1, 2730-8, 1750-7 #### [facility] ([id number]) [address], [address] [place] [address] #### [id number] #### ([id number]) [address] [place] [id number] BASIC METABOLIC PANLon 12-16 Anion gap [Moles/Vol] 11 mmol/L Normal 5-[address] [facility] Comment on above: Performed By: #### B MP, CBC, 46484-4, 2777-1, 23438-7, 2730-8, 1750-7 #### [facility] ([id number]) [address], [address] [place] [address] #### 89586-0 #### ([id number]) [address] [place] [address]2601 Calcium [Mass/Vol] 9.1 mg/dL Normal 8.5-10.5 [facility] Comment on above: Performed By: #### B MP, CBC, 47398-9, 2777-1, 06030-4, 2730-8, 175-7 #### [facility] ([id number]) [address], [address] [place] [address] #### 27731-3 #### ([id number]) [address] [place] [address] 12976 Chloride [Moles/Vol] 103 mmol/L Normal 98-109 [facility] Comment on above: Performed By: #### B MP, CBC, 15604-8, 2777-1, 35736-1, 2730-8, 1750- #### [facility] ([id number]) [address], [address] [place] [address] #### 13267-5 #### ([id number]) [address] [place] [address] 86117 CO2 [Moles/Vol] 28 mmol/L Normal 22-32 [facility] Comment on above: Performed By: #### B MP, CBC, 93226-4, 2777-1, 04780-1, 2730-8, 175- #### [facility] ([id number]) [address], [address] [place] [address] #### 56167-7 #### ([id number]) [address] [place] [address] 18093 Creatinine [Mass/Vol] 0.63 mg/dL Normal 0.40-1.[address] [facility] Comment on above: Result Comment: METH OD TRACEABLE TO IDMS STANDARD Performed By: #### B MP, CBC, 71555-6, 2777-1, 71812-4, 2730-8, 1750-7 #### [facility] ([id number]) [address], [address] [place] [address] #### 54368-8 #### ([id number]) [address] [place] [address] eGFR (CKD-EPI) NON-RACE DEPENDENT >90 Normal >59 [facility] Comment on above: Result Comment: Reported eGFR is based on the CKD-EPI 2020 equation that does not use a race coefficient. Performed By: #### B MP, CBC, 94697-1, 2777-1, 45085-4, 2730-8, 1750-7 #### [facility] ([id number]) [address], [address] [place] [address] #### 64120-7 #### ([id number]) [address] [place] [address] 76800 Glucose [Mass/Vol] 166 mg/dL High 65-99 [facility] Comment on above: Performed By: #### B MP, CBC, 57287-4, 2777-1, 76845-3, 2730-8, 1750- #### [facility] ([id number]) [address], [address] [place] [address] #### 35434-3 #### ([id number]) [address] [place] [address] 26398 Potassium [Moles/Vol] 3.7 mmol/L Normal 3.5-5.[address] [facility] Comment on above: Performed By: #### B MP, CBC, 16817-5, 2777-1, 20327-4, 2730-8, 1750-7 #### [facility] ([id number]) [address], [address] [place] [address] #### 34652-5 #### ([id number]) [address] [place] [address] 52213 Sodium [Moles/Vol] 142 mmol/L Normal 134-146 [facility] Comment on above: Performed By: #### B MP, CBC, 22111-5, 2777-1, 33015-0, 2731-8, 1750-7 #### [facility] ([id number]) [address], [address] [place] [address] #### 73368-3 #### ([id number]) [address] [place] [address] 88233 Urea nitrogen [Mass/Vol] 12 mg/dL Normal 5-27 [facility] Comment on above: Performed By: #### B MP, CBC, 99034-7, 7-1, 88803-2, 2730-8, 1750- #### [facility] ([id number]) [address], [address] [place] [address] #### 60447-9 #### ([id number]) [address] [place] [address] 15911 COMPLETE BLOOD COUNTon 12-16 Erythrocyte distribution width (RBC) [Ratio] 13.7 % Normal 11.5-15.0 [facility] Comment on above: Performed By: #### B MP, CBC, 22634-6, 2777-1, 08047-2, 2730-8, 1750- #### [facility] ([id number]) [address], [address] [place] [address] #### 83183-8 #### ([id number]) [address] [place] [address] 20278 Hematocrit (Bld) [Volume fraction] 44.8 % Normal 35-47 [facility] Comment on above: Performed By: #### B MP, CBC, 24007-0, 2777-1, 83256-5, 2730-8, 1750- #### [facility] ([id number]) [address], [address] [place] [address] #### 62828-3 #### ([id number]) [address] [place] [address] 77476 Hemoglobin (Bld) [Mass/Vol] 14.5 g/dL Normal 11.7-15.5 [facility] Comment on above: Performed By: #### B MP, CBC, 23670-9, 2777-1, 39775-7, 1-8, 1751-7 #### [facility] ([id number]) [address], [address] [place] [address] #### 14265-7 #### ([id number]) [address] [place] [address] 60775 MCH (RBC) [Entitic mass] 29.1 pg Normal 27-34 [facility] Comment on above: Performed By: #### B MP, CBC, 51165-1, 2777-1, 01385-3, 2730-8, 1750-7 #### [facility] ([id number]) [address] [facility] [facility] [address], [address] [place] [address] #### 71006-4 #### ([id number]) [address] [place] [address] 53396 MCHC (RBC) [Mass/Vol] 32.3 g/dL Normal 32-36 [facility] Comment on above: Performed By: #### B MP, CBC, 40628-0, 2777-1, 59997-1, 2730-8, 1750-7 #### [facility] ([id number]) [address] [facility] [facility], [address] [place] [address] #### 44138-3 #### ([id number]) [address] [place] [address] 88032 MCV (RBC) [Entitic vol] 90 fL Normal 80-[address] [facility] Comment on above: Performed By: #### B MP, CBC, 02909-0, 2777-1, 13944-8, 2730-8, 1750- #### [facility] ([id number]) [address] [facility] [facility] [address], [address] [place] [address] #### 74941-3 #### ([id number]) [address] [place] [address] 51349 Platelet mean volume (Bld) [Entitic vol] 11.3 fL Normal 7-12 [facility] Comment on above: Performed By: #### B MP, CBC, 94861-2, 2777-1, 45639-9, 2730-8, 1750- #### [facility] ([id number]) [address], [address] [place] [address] #### 44727-3 #### ([id number]) [address] [place] [address] 25608 Platelets (Bld) [#/Vol] 132 10*3/uL Low 150-450 [facility] Comment on above: Performed By: #### B MP, CBC, 45580-6, 2777-1, 83454-5, 2730-8, 1750- #### [facility] ([id number]) [address] [facility], [address] [place] [address] #### 58178-7 #### ([id number]) [address] [place] [address] 98579 RBC COUNT 4.97 X10E12/L Normal 3.80-5.20 [facility] Comment on above: Performed By: #### B MP, CBC, 46428-4, 2777-1, 54110-8, 2730-8, 1750- #### [facility] ([id number]) [address] [facility] [facility] [address], [address] [place] [address] #### 12916-6 #### ([id number]) [address] [place] [address] 31851 WBC (Bld) [#/Vol] 5.3 10*3/uL Normal 4.0-11.0 [facility] Comment on above: Performed By: #### B MP, CBC, 75204-0, 2777-1, 64889-1, 2731-8, 1751-7 #### [facility] ([id number]) [address] [facility], [address] [place] [address] #### 88988-4 #### ([id number]) [address] [place] [address] 03182 MAGNESIUMon 12-17-2023 Magnesium [Mass/Vol] 1.8 mg/dL Normal 1.8-2.6 [facility] Comment on above: Performed By: #### B MP, CBC, 79032-0, 2777-1, 97834-9, 2730-8, 175-7 #### [facility] ([id number]) [address] [facility], [address] [place] [address] #### 02294-8 #### ([id number]) [address] [place] [address] 31072 MICROALBUMIN - ALBUMIN:CREAT ININE URINE RATIOon 12-17-2023 ALB/CREAT RATIO 190.9 mg/g creat High 0.0-30.[address] [facility] Comment on above: Performed By: #### B MP, CBC, 78935-4, 2777-1, 56515-4, 2731-8, 175-7 #### [facility] ([id number]) [address] [address], [address] [place] [address] #### 22532-1 #### ([id number]) [address] [place] [address] 35692 Albumin DL <= 20 mg/L (U) [Mass/Vol] 44.1 mg/dL High 0.0-1.9 [facility] Comment on above: Performed By: #### B MP, CBC, 74017-3, 2777-1, 08942-6, 2730-8, 1750-7 #### [facility] ([id number]) [address] [facility] [facility], [address] [place] [address] #### 55160-7 #### ([id number]) [address] [place] [address] 96426 URINE CREAT 231.07 mg/dL Normal [facility] Comment on above: Performed By: #### B MP, CBC, 96576-9, 2777-1, 93708-9, 8, 1750-12 #### [facility] ([id number]) [address] [facility] [facility], [address] [place] [address] #### 50024-5 #### ([id number]) [address] [place] [address] 83063 PHOSPHORUSon 12-17-2023 Phosphate [Mass/Vol] 3.0 mg/dL Normal 2.4-4.9 [facility] Comment on above: Performed By: #### B MP, CBC, 38946-9, 2777-1, 02861-4, 2730-8, 1750- #### [facility] ([id number]) [address] [facility], [address] [place] [address] #### 42161-7 #### ([id number]) [address] [place] [address] 82188 Parathyrin.intact [Mass/Vol] on 12-17-2023 PTH INTACT 50 pg/mL Normal 12-88 [facility] Comment on above: Performed By: #### B MP, CBC, 58314-3, 2777-1, 99705-0, 2730-8, 1750-7 #### [facility] ([id number]) [address], [address] [place] [address] #### 41732-1 #### ([id number]) [address] [place] [address] Tacrolimus trough (Bld) [Mas s/Vol]on 12-17-2023 Tacrolimus, B 2.9 ng/mL Low 5.0-15.0 (Trough) [facility] Comment on above: Result Comment: NOTE ADDITIONAL INFORMATION Target steady-state trough concentrations vary depending on the type of transplant, concomitant immunosuppression, clinical/institutional protocols, and time post-transplant. Results should be interpreted in conjunction with this clinical information and any physical signs/symptoms of rejection/toxicity. Testing performed by Liquid Chromatography-Tandem Mass Spectrometry (LC-MS/MS). This test was developed and its performance characteristics determined by [facility] in a manner consistent with CLIA requirements. This test has not been cleared or approved by the U.S. Food and Drug Administration. Test Performed by: [place] [address] Air Vice Marshal: Buddy Ballard Ph.D.; CLIA# [id number] Performed By: #### B MP, CBC, 57335-8, 2777-1, 44169-7, 2731-8, 1751-7 #### [facility] ([id number]) [address] [place] [address], [address] [place] [address] #### 88265-7 #### ([id number]) [address] [place] [address] URINALYSISon 12-17-2023 Bilirubin Ql (U) Negative Normal NEG [facility] Comment on above: Performed By: #### U A, MALBU #### [facility] ([id number]) [address] [place] [address], [address] [place] [address] BLOOD/HGB Negative Normal NEG [facility] Comment on above: Performed By: #### MERRICK Palma #### [facility] ([id number]) [address], [address] [place] [address] CA OXALATE CRYSTALS PRESENT Abnormal NONE [facility] Comment on above: Performed By: #### MERRICK Palma #### [facility] ([id number]) [address], [address] [place] [address] Color (U) YELLOW Normal YELLOW [facility] Comment on above: Performed By: #### MERRICK Palma #### [facility] ([id number]) [address], [address] [place] [address] Glucose Ql (U) 200 mg/dL Abnormal NEG [facility] Comment on above: Performed By: #### MERRICK Palma #### [facility] ([id number]) [address], [address] [place] [address] Ketones Ql (U) Negative Normal NEG [facility] Comment on above: Performed By: #### MERRICK Palma #### [facility] ([id number]) [address], [address] [place] [address] Leukocyte esterase Test strip Ql (U) Negative Normal NEG [facility] Comment on above: Performed By: #### MERRIKC Palma #### [facility] ([id number]) [address], [address] [place] [address] MUCOUS PRESENT Abnormal [facility] Comment on above: Performed By: #### MERRICK Palma #### [facility] ([id number]) [address], [address] [place] [address] Nitrite Ql (U) Negative Normal NEG [facility] Comment on above: Performed By: #### MERRICK Palma #### [facility] ([id number]) [address], [address] [place] [address] pH (U) 6.0 [pH] Normal 5.0-8.5 [facility] Comment on above: Performed By: #### Linus Macdonald, MERRICK #### [facility] ([id number]) [address], [address] [place] [address] Protein Ql (U) 200 mg/dL Abnormal NEG [facility] Comment on above: Performed By: #### Linus Macdonald, MALBU #### [facility] ([id number]) [address], [address] [place] [address] R.B.CELLS <1 Normal 0-5 [facility] Comment on above: Performed By: #### Linus Macdonald, MERRICK #### [facility] ([id number]) [address], [address] [place] [address] Specific gravity (U) [Rel density] 1.034 Normal 1.003-1.035 [facility] Comment on above: Performed By: #### Linus Macdonald, JACQUIMAXIMILIAN #### [facility] ([id number]) [address], [address] [place] [address] SQUAMOUS EPITHELIUM <1 Normal 0-5 [facility] Comment on above: Performed By: #### Linus Macdonald, MALMAXIMILIAN #### [facility] ([id number]) [address], [address] [place] [address] TURBIDITY HAZY Abnormal CLEAR [facility] Comment on above: Performed By: #### Linus Macdonald, MALMAXIMILIAN #### [facility] ([id number]) [address], [address] [place] [address] Urobilinogen (U) [Mass/Vol] mg/dL Normal <1.1 [facility] Comment on above: Performed By: #### Linus Macdonald, MALMAXIMILIAN #### [facility] ([id number]) [address] [place] [address], [address] [place] [address] W.B.CELLS 4 /hpf Normal 0-5 [facility] Comment on above: Performed By: #### MERRICK Palma #### [facility] ([id number]) [address] [place] [address], [address] [place] [address] Vitamin D+Metabolites [Mass/ Vol]on 12-17-2023 VITAMIN D 25 HYD TOT 23.6 ng/mL Low 30-100 [facility] Comment on above: Result Comment: Vitamin D status 25 [place] Vitamin D Deficiency <20 ng/mL Insufficiency 20-29 ng/mL Sufficiency 30-100 ng/mL Toxicity >100 ng/mL NOTE: A pediatric reference range has not been established by the dough puncher of this kit. The [place] [employer] recommends a Vitamin D level of = or >20ng/mL in infants and children. Performed By: #### B MP, CBC, 35001-3, 2777-1, 08165-1, 2731-8, 1751-7 #### [facility] ([id number]) [address] [place] [address], [address] [place] [address] #### 84285-4 #### ([id number]) [address] [place] [address], [place] [address] Glucose Glucometer (BldC) [M ass/Vol]on 07-14-2023 Glucose [Mass/Vol] 142 mg/dL High 65-99 [facility] A1C HEMOGLOBINon 05-13-2023 HbA1c (Bld) [Mass fraction] 8.4 % [employer] Other Glucose - FINGER STICKon Glucose [Mass/Vol] 167 mg/dL [employer] Other HbA1c (Bld) [Mass fraction]o n 05-13-2023 A1C HEMOGLOBIN [place] [employer] Other A1C HEMOGLOBINon 01-21-2023 HbA1c (Bld) [Mass fraction] 8.1 % [employer] Other Glucose - FINGER STICKon Glucose [Mass/Vol] 117 mg/dL [employer] Other HbA1c (Bld) [Mass fraction]o n 01-21-2023 A1C HEMOGLOBIN [facility] [employer] Other POINT OF CARE GLUCOSEon 09-13 Glucose [Mass/Vol] 185 mg/dL Critically high 74-106 [facility] Comment on above: Performed By: #### P OCGLUC #### [facility] [address] [place] [address] Dr. Payam Frazier XR hand RT min 3V*on 023 XR hand RT min 3V* [facility] [employer] Other XR hand RT min 3V* [facility] Other XR hand RT min 3V* [address] [place] [address] [employer] Other XR hand RT min 3V* [place] [address] [employer] Other XR hand RT min 3V* XRay Report [employer] Other XR hand RT min 3V* Signed [employer] Other XR hand RT min 3V* Patient: Lisy Flores MR#: [id number] [employer] Other XR hand RT min 3V* 3326 [employer] Other XR hand RT min 3V* : 1955 Acct:[id number] [employer] Other XR hand RT min 3V* Age/Sex: 66 / F ADM Date: 07/22/22 [employer] Other XR hand RT min 3V* Loc: [facility] Room: Type: REG CLI [employer] Other XR hand RT min 3V* Attending Dr: Sara Adhikari MD [employer] Other XR hand RT min 3V* Copies to: Sara Adhikari MD [employer] Other XR hand RT min 3V* Ordering Provider: Sara Adhikari MD [employer] Other XR hand RT min 3V* Date of Service: 07/22/22 [employer] Other XR hand RT min 3V* XR/XR hand RT min 3V*: PAIN [employer] Other XR hand RT min 3V* 4 viewsright hand plain film [employer] Other XR hand RT min 3V* COMPARISON:08/01/19 [employer] Other XR hand RT min 3V* HISTORY:Right hand pain. Mass in the fourth digit [employer] Other XR hand RT min 3V* Moderate interphalangeal degeneration. No bony lesion. Adequate bony alignment. No fracture. No soft [employer] Other XR hand RT min 3V* tissue calcification. [employer] Other XR hand RT min 3V* XR/XR hand RT min 3V* [employer] Other XR hand RT min 3V* IMPRESSION:Similar degenerative change. [employer] Other XR hand RT min 3V* Impression dictated by: Roberto Pritchard M.D.07/22/2022 4:26 PM [employer] Other XR hand RT min 3V* Dictation Location: [place] [address] [employer] Other XR hand RT min 3V* Transcribed By: ZEHRA 07/22/22 1626 [employer] Other XR hand RT min 3V* Dictated By: Roberto Pritchard DO 07/22/22 1629 [facility] [employer] Other XR hand RT min 3V* Signed By: [place] [employer] Other XR hand RT min 3V* 07/22/22 1626 [facility] [employer] Other A1C HEMOGLOBINon 07-14-2022 HbA1c (Bld) [Mass fraction] 7.9 % [facility] [employer] Other Glucose - FINGER STICKon Glucose [Mass/Vol] 164 mg/dL [facility] [employer] Other HbA1c (Bld) [Mass fraction]o n 07-14-2022 A1C HEMOGLOBIN [facility] [employer] Other A1C HEMOGLOBINon 03-11-2022 HbA1c (Bld) [Mass fraction] 8.0 % [employer] Other Albumin [Mass/volume] in Ser um or PlasmaOrdered By: Tondra Mapus on 03-11-2022 Albumin [Mass/Vol] 3.8 g/dL 3.2-5.5 [facility] Bilirubin.total [Mass/volume ] in Serum or PlasmaOrdered By: Tondra Mapus on 03-11-2022 Bilirubin [Mass/Vol] 0.5 mg/dL 0.3-1.2 [facility] Calcium [Mass/volume] in Ser um or PlasmaOrdered By: Tondra Mapus on 03-11-2022 Calcium [Mass/Vol] 9.2 mg/dL 8.2-10.2 [facility] Carbon dioxide, total [Moles /volume] in Serum or PlasmaOrdered By: Tondra Mapus on 03-11-2022 CO2 [Moles/Vol] 24.7 mmol/L 22.0-30.0 [facility] Comprehensive Metabolic Pane lacey 03-11-2022 Albumin [Mass/Vol] 3.353832 g/dL Normal 3.2-5.5 g/dL [facility] [employer] Other ALT [Catalytic activity/Vol] 23 U/L Normal 10-60 U/L [employer] Other Bilirubin [Mass/Vol] 0.7487816 mg/dL Normal 0.3- 1.2 mg/dL [employer] Other Calcium [Mass/Vol] 9.5545451 mg/dL Normal 8.2-10 .2 mg/dL [employer] Other CO2 [Moles/Vol] 24.22541317 mmol/L Normal 22.0-3 0.0 mmol/L [employer] Other Creatinine [Mass/Vol] 0.93447754 mg/dL Normal 0. 44-1.03 mg/dL [employer] Other Potassium [Moles/Vol] 4.18268026 mmol/L Normal 3 .5-5.1 mmol/L [employer] Other Protein [Mass/Vol] 6.872910 g/dL Normal 6.1-7.9 g/dL [facility] [employer] Other Comprehensive Metabolic Panel > 60 [employer] Other Comprehensive Metabolic Panel 2.5 g/dL [employer] Other Comprehensive Metabolic Pane lOrdered By: Airam Thomas on 03-11-2022 Albumin/Globulin [Mass ratio] 1.5 {ratio} [facility] ALP [Catalytic activity/Vol] 102 U/L 32-92 [facility] AST [Catalytic activity/Vol] 20 U/L 10-42 [facility] Chloride [Moles/Vol] 102 mmol/L 95-114 [facility] Glucose [Mass/Vol] 138 mg/dL 70-100 [facility] Comment on above: ADA recommended refe rence rangeRandom Glucose Reference Range is dependent on time and content of last meal. Glucose of more than 200 mg/dL in a nonstressed, ambulatory subject supports the diagnosis of Diabetes Mellitus. Sodium [Moles/Vol] 139 mmol/L 136-146 [facility] Urea nitrogen [Mass/Vol] 13 mg/dL 9-23 [facility] Creatinine and Glomerular fi ltration rate.predicted panel (S/P/Bld)Ordered By: Airam Thomas on 03-11-2022 Creatinine [Mass/Vol] 0.60 mg/dL 0.44-1.03 [facility] Estimated glomerular filtrat ion rate (GFR) non- AmericanOrdered By: Airam Thomas on 03-11-2022 GFR/1.73 sq M.predicted among non-blacks MDRD (S/P/Bld) [Vol rate/Area] > 60 mL/Min [facility] Globulin Calc (S) [Mass/Vol] Ordered By: Airam Thomas on 03-11-2022 Globulin (S) [Mass/Vol] 2.5 g/dL F [facility] Glucose - FINGER STICKon Glucose [Mass/Vol] 158 mg/dL [employer] Other HbA1c (Bld) [Mass fraction]o n 03-11-2022 A1C HEMOGLOBIN [facility] [employer] Other No Panel InformationOrdered By: Airam Thomas on 03-11-2022 Estimated GFR () > 60 mL/Min [facility] Comment on above: GFR estimated refere nce range: According to KDOQI guidelines, <60 ml/min/1.73m2 is sufficient to diagnose a patient with chronic kidney disease. Pharmacy Creatinine Clearance (Chem N/A [facility] Potassium [Moles/volume] in Serum or PlasmaOrdered By: Airam Thomas on 03-11-2022 Potassium [Moles/Vol] 4.1 mmol/L 3.5-5.1 [facility] Protein [Mass/volume] in Ser um or PlasmaOrdered By: Airam Thomas on 03-11-2022 Protein [Mass/Vol] 6.3 g/dL 6.1-7.9 [facility] Serum or plasma alanine ramsey otransferase measurement without P-5'-P (enzymatic activiOrdered By: Airam Thomas on 03-11-2022 ALT No additional P-5'-P [Catalytic activity/Vol] 23 U/L 10-60 [facility] Serum or plasma anion gap de terminationOrdered By: Airam Thomas on 03-11-2022 Anion gap [Moles/Vol] 16.4 mmol/L 6.0-15.0 [facility] POINT OF CARE GLUCOSEon -2 Glucose [Mass/Vol] 148 mg/dL Critically high 74-106 [facility] Comment on above: Performed By: #### P OCGLUC #### [facility] [address] [address] [address] Payam Frazier A1C HEMOGLOBINon 12-04-2021 HbA1c (Bld) [Mass fraction] 8.4 % [employer] Other Glucose - FINGER [employer]on Glucose [Mass/Vol] 101 mg/dL [employer] Other HbA1c (Bld) [Mass fraction]o n 12-04-2021 A1C HEMOGLOBIN [employer] Other A1C HEMOGLOBINon 08-05-2021 HbA1c (Bld) [Mass fraction] 7.9 % [employer] Other Glucose - FINGER STICKon Glucose [Mass/Vol] 158 mg/dL [employer] Other HbA1c (Bld) [Mass fraction]o n 08-05-2021 A1C HEMOGLOBIN [employer] Other Vital Signs Date Time Vital Sign Value Performing Clinician Facility 10-04-2023 10:32-0400 Body height 162.56 cm [facility] 10-04-2023 10:32-0400 Body mass index (BMI) [Ratio] 36.6 kg/m2 [facility] 10-04-2023 10:32-0400 Body weight 96.61 kg [facility] 10-04-2023 10:32-0400 Diastolic blood pressure 80 mm[Hg] [facility] 10-04-2023 10:32-0400 Heart rate 60 /min [facility] 10-04-2023 10:32-0400 Respiratory rate 18 /min [facility] 10-04-2023 10:32-0400 SaO2% (BldA) [Mass fraction] 97 % [facility] 10-04-2023 10:32-0400 Systolic blood pressure 133 mm[Hg] [facility] 05-13-2023 10:15-0500 Body height 162.56 cm Tondra Mapus Other [facility] 05-13-2023 10:15-0500 Body mass index (BMI) [Ratio] 37.95 kg/m2 Tondra Mapus Other [facility] Other 05-13-2023 10:15-0500 Body weight 100.29 kg Tondra Mapus Other [facility] Other 05-13-2023 10:15-0500 Body weight 100.28 kg [facility] 05-13-2023 10:15-0500 Diastolic blood pressure 77 mm[Hg] Tondra Mapus Other [facility] 05-13-2023 10:15-0500 Respiratory rate 18 /min Tondra Mapus Other [facility] Other 05-13-2023 10:15-0500 SaO2% (BldA) [Mass fraction] 95 % Tondra Mapus Other [facility] Other 05-13-2023 10:15-0500 Systolic blood pressure 147 mm[Hg] Tondra Mapus Other [facility] 01-21-2023 14:45-0400 Body height 162.56 cm Tondra Mapus Other [facility] Other 01-21-2023 14:45-0400 Body mass index (BMI) [Ratio] 37.35 kg/m2 Tondra Mapus Other [facility] Other 01-21-2023 14:45-0400 Body weight 98.7 kg Tondra Mapus Other [facility] Other 01-21-2023 14:45-0400 Diastolic blood pressure 80 mm[Hg] Tondra Mapus Other [facility] Other 01-21-2023 14:45-0400 Respiratory rate 18 /min Tondra Mapus Other [facility] Other 01-21-2023 14:45-0400 SaO2% (BldA) [Mass fraction] 96 % Tondra Mapus Other [facility] Other 01-21-2023 14:45-0400 Systolic blood pressure 124 mm[Hg] Tondra Mapus Other [facility] Other 07-22-2022 15:30-0500 Body height 162.56 cm Crucell Other [facility] Other 07-22-2022 15:30-0500 Body mass index (BMI) [Ratio] 38.33 kg/m2 Sara Konkuraeverett Other [facility] Other 07-22-2022 15:30-0500 Body weight 101.29 kg Sara Konkuraeverett Other [facility] Other 07-14-2022 12:00-0500 Body height 162.56 cm Tondra Mapus Other [facility] Other 07-14-2022 12:00-0500 Body mass index (BMI) [Ratio] 38.33 kg/m2 Tondra Mapus Other [facility] Other 07-14-2022 12:00-0500 Body weight 101.29 kg Tondra Mapus Other [facility] Other 07-14-2022 12:00-0500 Diastolic blood pressure 76 mm[Hg] Tondra Mapus Other [facility] Other 07-14-2022 12:00-0500 Respiratory rate 18 /min Tondra Mapus Other [facility] Other 07-14-2022 12:00-0500 SaO2% (BldA) [Mass fraction] 98 % Tondra Mapus Other [facility] Other 07-14-2022 12:00-0500 Systolic blood pressure 144 mm[Hg] Tondra Mapus Other [facility] Other 03-11-2022 12:00-0400 Body height 162.56 cm Tondra Mapus Other [facility] Other 03-11-2022 12:00-0400 Body mass index (BMI) [Ratio] 38.93 kg/m2 Tondra Mapus Other [facility] Other 03-11-2022 12:00-0400 Body weight 102.88 kg Tondra Mapus Other [facility] Other 03-11-2022 12:00-0400 Diastolic blood pressure 67 mm[Hg] Tondra Mapus Other [facility] Other 03-11-2022 12:00-0400 Respiratory rate 18 /min Tondra Mapus Other [facility] Other 03-11-2022 12:00-0400 SaO2% (BldA) [Mass fraction] 98 % Tondra Mapus Other [facility] Other 03-11-2022 12:00-0400 Systolic blood pressure 106 mm[Hg] Tondra Mapus Other [facility] Other 12-04-2021 11:15-0400 Body height 162.56 cm Tondra Mapus Other [facility] Other 12-04-2021 11:15-0400 Body mass index (BMI) [Ratio] 38.79 kg/m2 Tondra Mapus Other [facility] Other 12-04-2021 11:15-0400 Body weight 102.51 kg Tondra Mapus Other [facility] Other 12-04-2021 11:15-0400 Diastolic blood pressure 80 mm[Hg] Tondra Mapus Other [facility] Other 12-04-2021 11:15-0400 Respiratory rate 20 /min Tondra Mapus Other [facility] Other 12-04-2021 11:15-0400 SaO2% (BldA) [Mass fraction] 96 % Tondra Mapus Other [facility] Other 12-04-2021 11:15-0400 Systolic blood pressure 119 mm[Hg] Tondra Mapus Other [facility] Other 08-05-2021 10:45-0500 Body height 162.56 cm Tondra Mapus Other [facility] Other 08-05-2021 10:45-0500 Body mass index (BMI) [Ratio] 39.3 kg/m2 Tondra Mapus Other [facility] Other 08-05-2021 10:45-0500 Body weight 103.87 kg Tondra Mapus Other [facility] Other 08-05-2021 10:45-0500 Diastolic blood pressure 81 mm[Hg] Tondra Mapus Other [facility] Other 08-05-2021 10:45-0500 Respiratory rate 20 /min Tondra Mapus Other [facility] Other 08-05-2021 10:45-0500 SaO2% (BldA) [Mass fraction] 95 % Tondra Mapus Other [facility] Other 08-05-2021 10:45-0500 Systolic blood pressure 124 mm[Hg] Tondra Mapus Other [facility] Other Encounters Encounter Date Encounter Type Care Provider Facility Start: 12-17-2023 End: 12-17-2023 ambulatory [facility] Start: 10-04-2023 End: 10-04-2023 ambulatory [facility] Work Phone: Start: 10-04-2023 End: 10-04-2023 Patient encounter procedure Count Includes [facility] Work Phone: Start: 09-27-2023 End: 09-28-2023 ambulatory Tra Last MD Facility:[facility] Start: 08-12-2023 Refill Marycruz Guzman SAVINGS TELLER-SAMPLER TESTER Work Phone: [facility] Comment on above: Anemia, unspecified Start: 07-14-2023 End: 07-14-2023 Evaluation and management of inpatient MACARIO Krishna [facility] Start: 05-13-2023 (DM) Diabetes Tondra Mapus [facility] Start: 05-13-2023 End: 05-14-2023 ambulatory NON STAFF [facility] Other Start: 05-13-2023 End: 05-13-2023 Discharged [facility] Work Phone: Start: 05-13-2023 End: 05-13-2023 Patient encounter procedure Count Includes [facility] Work Phone: Start: 03-03-2023 End: 03-03-2023 ambulatory Tondra Mapus Other [facility] Other Start: 03-03-2023 Telephone encounter Tondra Mapus [facility] Start: 01-26-2023 End: 01-26-2023 ambulatory Tondra Mapus Other [facility] Other Start: 01-26-2023 Telephone encounter Tondra Mapus [facility] Start: 01-22-2023 End: 01-22-2023 ambulatory Tondra Mapus Other [facility] Other Start: 01-22-2023 Telephone encounter Tondra Mapus [facility] Start: 01-21-2023 (DM) Diabetes Tondra Mapus [facility] Start: 01-21-2023 End: 01-21-2023 ambulatory Tondra Mapus Other [facility] Other Start: 10-23-2022 End: 10-24-2022 ambulatory NARENDRANATH LAKSHMIPATHY . Facility:[facility] Start: 10-13-2022 ambulatory NARENDRANATH LAKSHMIPATHY . Facility:[facility] Start: 10-06-2022 End: 10-06-2022 ambulatory NARENDRANATH LAKSHMIPATHY . Facility:[facility] Start: 09-29-2022 End: 09-30-2022 ambulatory NARENDRANATH LAKSHMIPATHY . Facility:[facility] Start: 09-24-2022 End: 09-25-[address] MARYCRUZ GUZMAN Facility:[facility] Start: 07-22-2022 End: 07-22-2022 ambulatory Sara Adhikari Other [facility] Other Start: 07-22-2022 Office outpatient visit 25 minutes Sara Adhikari [facility] Start: 07-14-2022 (DM) Diabetes Tondra Mapus [facility] Start: 07-14-2022 End: 07-14-2022 ambulatory Tondra Mapus Other [facility] Other Start: 06-25-2022 End: 06-26-[address] OSIRIS KELLEY . Facility: Start: 05-18-2022 End: 05-18-2022 ambulatory Tondra Mapus Other [facility] Other Start: 05-18-2022 Telephone encounter Tondra Mapus [facility] Start: 05-04-2022 End: 05-04-2022 ambulatory Tondra Mapus Other [facility] Other Start: 05-04-2022 Telephone encounter Tondra Mapus [facility] Start: 04-27-2022 End: 04-27-2022 ambulatory Tondra Mapus Other [facility] Other Start: 04-27-2022 Telephone encounter Tondra Mapus [facility] Start: 03-11-2022 (DM) Diabetes Tondra Mapus [facility] Start: 03-11-2022 End: 03-11-2022 ambulatory Tondra Mapus Other [facility] Other Start: 03-11-2022 Telephone encounter Tondra Mapus [facility] Start: 01-22-2022 End: 01-23-[address] OSIRIS KELLEY . Facility:[facility] Start: 01-06-2022 End: 01-06-[address] OSIRIS KELLEY . Facility: Start: 12-04-2021 (DM) Diabetes Tondra Mapus [facility] Start: 12-04-2021 End: 12-04-2021 ambulatory Tondra Mapus Other [facility] Other Start: 11-20-2021 End: 11-21-[address] OSIRIS KELLEY . Facility: Start: 08-05-2021 (DM) Diabetes Tondra Mapus [facility] Start: 08-05-2021 End: 08-05-2021 ambulatory Tondra Mapus Other [facility] Other Start: 08-05-2021 Telephone encounter Tondra Mapus [facility] Start: 07-16-2021 End: 07-16-2021 ambulatory Tondra Mapus Other [facility] Other Start: 07-16-2021 Telephone encounter Tondra Mapus [facility] Start: 07-15-2021 End: 07-15-2021 ambulatory Tondra Mapus Other [facility] Other Start: 07-15-2021 Telephone encounter Tondra Mapus [facility] Procedures Date Procedure Procedure Detail Performing Clinician Start: 04-21-2023 Mammography Marycruz Guzman APRN-SAMPLER TESTER Work Phone: Start: 04-06-2023 Adult depression screening assessment Marycruz VALDEZP Work Phone: Start: 04-09-2022 Diabetic retinal eye exam Marycruz VALDEZP Work Phone: Start: 04-10-2013 History of renal transplant History of kidney transplant Marycruz Guzman APRN-SAMPLER TESTER Work Phone: History of renal transplant Airam Thomas Other Plan of Treatment Date Care Activity Detail Author Start: 07-14-2024 Adult BMI Screening Adult BMI Screening [facility] Start: 07-14-2024 Tobacco Screening Tobacco Screening [facility] Start: 04-21-2024 Screening for malignant neoplasm of breast Mammogram [facility] Start: 04-06-2024 Depression Screening Depression Screening [facility] Start: 04-06-2024 Fall Risk Screening Fall Risk Screening [facility] Start: 11-23-2023 End: 11-23-2023 Patient encounter procedure 11/23/2023 9:40 AM EDT Office Visit [facility] [address] [place] [address] [facility] Start: 11-04-2023 Medicare Annual Wellness Visit Medicare Annual Wellness Visit [facility] Start: 04-09-2023 Glaucoma screening Diabetic Ophthalmology Exam [facility] Start: 07-16-2014 DTaP,Tdap and Td Vaccines (2 - Tdap) DTaP,Tdap and Td Vaccines (2 - Tdap) [facility] Start: 1973 Administration of varicella zoster vaccine Zoster (Shingles) Vaccine (1 of 2) [facility] Start: 1972 Adult BMI Follow Up Plan Adult BMI Follow Up Plan [facility] Start: 1972 Diabetic foot examination Diabetic Foot Exam [facility] Comprehensive metabo lic 2000 panel - Serum or Plasma [facility] Immunizations Immunization Date Immunization Notes Care Provider Fa cili 04-06-2023 Influenza Vaccine, Quadrivalent, Adjuvanted Marycruz Guzman SAVINGS TELLER-SAMPLER TESTER Work Phone: [facility] 10-07-2020 COVID-19, mRNA, LNP- S, PF, 100mcg/0.5mL Dose Marycruz Guzman SAVINGS TELLER-SAMPLER TESTER Work Phone: [facility] 09-06-2020 COVID-19 Vaccine Moderna - Documentation Purposes Only Tondra Mapus Other [facility] 08-09-2020 COVID-19 Vaccine Moderna - Documentation Purposes Only Tondra Mapus Other [facility] 04-24-2020 influenza virus vaccine, unspecified formulation [facility] 04-24-2020 Influenza, High-dose , Quadrivalent Marycruz Guzman SAVINGS TELLER-SAMPLER TESTER Work Phone: [facility] 04-24-2020 influenza, high dose seasonal, preservative-free Tondra Mapus Other [facility] Other 05-28-2017 Influenza, injectabl e, Madin Iris Canine Kidney, preservative free, quadrivalent Marycruz Guzman SAVINGS TELLER-SAMPLER TESTER Work Phone: [facility] 04-10-2016 influenza, seasonal, injectable, preservative free Marycruz Guzman SAVINGS TELLER-SAMPLER TESTER Work Phone: [facility] 09-24-2015 pneumococcal conjuga te vaccine, 13 valent Marycruz Guzman SAVINGS TELLER-SAMPLER TESTER Work Phone: [facility] 04-14-2015 influenza, seasonal, injectable Marycruz Guzman SAVINGS TELLER-SAMPLER TESTER Work Phone: [facility] 04-19-2013 pneumococcal polysaccharide vaccine, 23 valent Marycruz Guzman SAVINGS TELLER-SAMPLER TESTER Work Phone: [facility] 02-10-2012 pneumococcal polysaccharide vaccine, 23 valent Marycruz Guzman SAVINGS TELLER-SAMPLER TESTER Work Phone: [employer] 07-16-2004 DTaP-Haemophilus influenzae type b conjugate vaccine Marycruz Guzman SAVINGS TELLER-SAMPLER TESTER Work Phone: [employer] Payers Date Payer Category Payer Unknown 2020 Medicare ANTHEM MEDICARE ANTHEM MEDICARE ADVANTAGE [id number] 2020-[facility] [phone] [id number] [place] [address] [id number] 2017 Self-pay [id number] 1960 Medicare [id number] 1954 Unknown [id number] [id number]. 2.593 1954 Unknown [id number] 2.16.840.1.883312.3.579. 2.593 1954 Unknown [id number] 2.16.840.1.109101.3.579. 2.593 1954 Unknown [id number] 2.16.840.1.743967.3.579. 2.593 1954 Unknown [id number] 2.16.840.1.134620.3.579. 2.593 1954 Unknown [id number] 2.16.840.1.924500.3.579. 2.593 1954 Unknown [id number] 2.16.840.1.022413.3.579. 2.593 1954 Unknown [id number] 2.16.840.1.186865.3.579. 2.593 1954 Unknown [id number] 2.16.840.1.010410.3.579. 2.593 1954 Unknown [id number] 2.16.840.1.341200.3.579. 2.196 1954 Unknown [id number] 2.16.840.1.907535.3.579. 2.1286 1954 Unknown [id number] 2.16.840.1.716979.3.579. 2.1286 Private Health Insurance [facility] [id number] Unknown [id number] [id number]. 2.531 Social History Date Type Detail Facility Unknown if ever smoked [facility] Other Start: 11-03-2022 End: 04-06-2023 [facility] Start: 08-21-2019 End: 10-04-2023 Tobacco smoking status [facility] Never smoked tobacco (finding) [facility] Start: 1955 Sex Assigned At Female [facility] Start: 07-14-2023 Tobacco use and exposure Smokeless tobacco non-user [facility] Start: 07-15-2023 Alcohol intake Lifetime non-drinker (finding) [facility] Start: 11-03-2022 End: 04-06-2023 History of Social function [facility] Do you belong to any clubs or organizations such as shinto groups, unions, fraternal or athletic groups, or school groups? No [facility] Are you now , , , , never or living with a partner? [facility] Frequency of Alcohol Consumption Never [facility] Do you feel stress - tense, restless, nervous, or anxious, or unable to sleep at night because your mind is troubled all the time - these days [OSQ] To some extent [facility] Start: 1955 Sex Assigned At Not on file [facility] Procedure Code Equipment Code Equipment Origin al Text Equipment Identifier Dates [id number], [id number] blood sugar diagnostic ([employer] Precision Harish Strips) Start: 10-04-2023 Clinical Notes 04-14-2020 to 06-02-2023 Note Date & Type Note Facility 06-02-2023 Note HNO ID: [id number] Author: Alondra Boggs PA-C Service: ? Author Type: Physician Inspection Clerk Type: Progress Notes Filed: 06/02/2023 4:31 PM [...] reviewed during the appt Alondra Boggs PA-C [facility] 05-31-2023 Note HNO ID: [id number] Author: Alycia Red Service: ? Author Type: ? Type: Progress Notes Filed: 06/02/2023 4:31 PM Note Text: Patient name: Lisy Flores Are you being referred by a [facility] Provider or Pain Management Provider at [facility]? No If answer is YES please schedule [...] facility where the MRI/CT/myelogram was completed: [place] [address] MRI/CT/myelogram viewable in [facility]: No If not, please provide [phone] to fax in imaging reports for review. [...] and/or physical therapy was completed Injection: [place] [address] PT: [place] [address] Have you tried any other kinds of [...] where the surgery was completed: Additional Comments [phone] [facility] 05-13-2023 Evaluation note Encounter Date Diagnosis Assessment Notes 30 Nov, 2023 Type 2 diabetes mellitus with hyperglycemia (ICD-10 - E11.65) Diabetes (type 2) material was published 1. Uncontrolled, a Type 2 diabetes with A1c of 8.4% 2. Blood glucose levels above target. According to [employer] 2 cgm download 04/30/23-: Avg glucose 167. [...] hyperglycemia, or diabetes medication issues. 6. Prescriptions: araseli Sepulveda [facility]. 7. Prescriptions will not be filled [...] high blood pressure material was published Apr, long-term current use of insulin (ICD-10 - Z79.4) [...] of glucose/bp control to prevent further nephropathy [facility] Other 08-11-2023 Evaluation note* Encounter Date Diagnosis Assessment Notes Treatment Notes Treatment Clinical Notes Jan, Type 2 diabetes mellitus with hyperglycemia (ICD-10 - E11.65) [facility] Other 08-10-2023 Evaluation note* Encounter Date Diagnosis [...] Reviewed with pt importance of bringing enedelia fine arts chair to all apts. Pt verbalizes understanding. 3. [...] hyperglycemia, or diabetes medication issues. 6. 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 Octavio [...] our patients to inform us about any twgr-lss-xvzcoxa medications or herbal remedies/nutritional supplements/alternative remedies. 2. [...] treatment options with their primary care provider.[facility] [id number] Evaluation note * Encounter Date Diagnosis Assessment [...] Jul, Left hand pain (ICD-10 - M79.642) [facility] Other 01-31-2023 Evaluation note* Encounter Date Diagnosis Assessment Notes Treatment Notes Treatment Clinical Notes Jun, Type 2 diabetes mellitus with hyperglycemia (ICD-10 - E11.65) Diabetes (type 2) material was published 1. Uncontrolled, a Type 2 diabetes with A1c of 7.9% 2. Blood glucose levels improved from last visit; however, above target. According to [employer] cgm download 07/01/2022- 3: Avg glucose 159. 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 Do, Neurosurgery, in [place] in the past, who did recommend a lumbar fusion in 2019. She has since been referred to [facility] for a second opinion, and the [...] in three months to maintain her medications.[facility] [id number] Evaluation note* Encounter Date Diagnosis Assessment Notes Treatment Notes Treatment Clinical Notes May, Type 2 diabetes mellitus with hyperglycemia (ICD-10 - E11.65) [facility] Other 11-21-2022 Evaluation note* Encounter Date Diagnosis Assessment Notes Treatment Notes Treatment Clinical Notes Apr, Type 2 diabetes mellitus with hyperglycemia (ICD-10 - E11.65) [facility] Other 11-14-2022 Evaluation note* Encounter Date Diagnosis Assessment Notes Treatment Notes Treatment Clinical Notes Apr, Type 2 diabetes mellitus with hyperglycemia (ICD-10 - E11.65) [facility] Other 09-28-2022 Evaluation note* Encounter Date Diagnosis Assessment Notes Treatment Notes Treatment Clinical Notes Feb, Type 2 diabetes mellitus with hyperglycemia (ICD-10 - E11.65) Diabetes (type 2) material was published 1. Uncontrolled, a Type 2 diabetes with A1c of 8.0% 2. Blood glucose levels improved from last visit; however, above target. According to [employer] cgm download 02/26/2022- 2: Avg glucose 169. 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 She states that helps her [...] There will be no dose changes to [place]. She will be back in three months' time, if she does not want to move forward with the procedure.[facility] [id number] Evaluation note* Encounter Date Diagnosis Assessment Notes Treatment Notes Treatment Clinical Notes Nov, Type 2 diabetes mellitus with hyperglycemia (ICD-10 - E11.65) Diabetes (type 2) material was published 1. Uncontrolled, a Type 2 diabetes with A1c of 8.4% 2. Blood glucose levels improved from last visit; however, above target. According to [employer] cgm download 11/21/2021- 2: Avg glucose 182. [...] 6. Prescriptions: Ozempic 2mg/Jardiance 25mg sent to [facility] Nov, Dietary counseling and surveillance (ICD-10 - Z71.3) Maintaining a healthful weight material was published Nov, Hyperlipidemia (ICD-10 - E78.5) Managing your cholesterol material was published 07/2021 ldl 79, trig 355, on statin. Nov, HTN (hypertension) (ICD-10 - I10) Managing high blood pressure material was published Nov, long-term current use of insulin (ICD-10 - Z79.4) Nov, Kidney transplant status (ICD-10 - Z94.0) keep f/u with nephrology Nov, Vitamin D deficiency (ICD-10 - E55.9) 07/2021 vit d 23.9, recommend otc vit d 2000 units once daily Nov, BMI 38.0-38.9,adult (ICD-10 - Z68.38) Healthy eating material was published 3 pound weight loss from last visit, continue with weight loss efforts [facility] Other 06-09-2022 NoteCONSULTATION CONSULTATION DATE: 11/20/2021 HISTORY [...] to move forward and all questions answered. [facility] Signed and Approved by: ELIESER BIRCH . 11/27/2021 16:02:00[facility]02-22-2022 Evaluation note* Encounter Date Diagnosis Assessment Notes Treatment Notes Treatment Clinical Notes Jul, Type 2 diabetes mellitus with hyperglycemia (ICD-10 - E11.65) Diabetes (type 2) material was published 1. Uncontrolled, a Type 2 diabetes with A1c of 7.9% 2. Blood glucose levels improved from last visit; however, above target. According to [employer] cgm download 07/23/2021-08/05/2021 : Avg glucose 154. [...] issues. 6. Prescriptions: Sent ozempic 1mg to [facility]. Jul, Dietary counseling and surveillance (ICD-10 - Z71.3) Maintaining a healthful weight material was published Jul, Hyperlipidemia (ICD-10 - E78.5) Managing your cholesterol material was published 07/2021 ldl 79, trig 355, on statin. 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.4) Jul, Kidney transplant status (ICD-10 - Z94.0) keep f/u with nephrology Jul, BMI 39.0-39.9,adult (ICD-10 - Z68.39) Healthy eating material was published 9 pound weight loss from last visit, continue with weight loss efforts Jul, Vitamin D deficiency (ICD-10 - E55.9) 07/2021 vit d 23.9, recommend otc vit d 2000 units once daily [facility] Other 02-01-2022 Evaluation note* Encounter Date Diagnosis Assessment Notes Treatment Notes Treatment Clinical Notes Jul, Type 2 diabetes mellitus with hyperglycemia (ICD-10 - E11.65) [facility] Other 11-01-2020 History general Narrative - Reported* Type Description Date Medical History DM2 Medical History KIDNEY RT/TRANSPLANT 2012 Medical History HLP Medical History HTN Medical History PVD Medical History Fractured left ankle 04/2020 Surgical History RT KIDNEY TRANSPLANT 2012 Surgical History LT SHOULDER Surgical History HYSTER Surgical History CHOLY Hospitalization History SEE ABOVE SURGERY [facility] [employer] Other Evaluation [facility]No [facility] [employer] Other Evaluation noteNo assessment information available [facility] Work Phone: Evaluaqvkm note* Diagnosis Anemia, unspecified [facility] Diagnosis Onset Date Resolution Status Type 2 diabetes mellitus with hyperglycemia acute [facility] Work Phone: InstructionsNot on filedocumented in this encounter [facility] Summary Purpose Family History No Family History Records Found Relationship Condition Age at Onset Recorded Date/T jolene Not Specified Hypertension Unknown History of heart surgery Unknown Type 2 diabetes mellitus Unknown father Hypertension Unknown Myocardial infarction Unknown Malignant neoplasm of lung Unknown brother Malignant neoplasm of colon Unknown Hypertension Unknown brother Type 2 diabetes mellitus Unknown father History of stroke Unknown Heart disease Unknown Diabetes mellitus Unknown Unknown History of stroke Unknown sibling Diabetes mellitus Unknown Malignant neoplasm Unknown Advance Directives No Advanced Directives Records Found Advance Directive Response Recorded Date/ Time Advance Directives No October 08, 018 4:05pm Advance Directive Response Recorded Date/ Time Advance Directives No October 08 018 5:05pm Chief Complaint and Reason for Visit Chief Complaint 3 Month Follow Up Type 2 DM with Diabetic Neuropathy Chief Complaint NO METER Reason for Visit Type 2 diabetes deloris itus with hyperglycemia Additional Source Comments REASON FOR VISIT (unrecogniz ed section and content) Reason Comments Med Refill INFORMATION SOURCE (unrecogn ized section and content) DATE CREATED AUTHOR 10/24/2022 Arjun pittman DATE CREATED AUTHOR AUTHOR'S ORGANIZ ATION 06/04/2023 [facility] DATE CREATED AUTHOR AUTHOR'S ORGANIZ ATION 07/28/2023 [facility] DATE CREATED AUTHOR AUTHOR'S ORGANIZ ATION 10/02/2023 [facility] DATE CREATED AUTHOR AUTHOR'S KENZIE ATION 12/18/2023 [facility] Care Teams (unrecognized sec tion and content) Team Status: Active Member Role Status Dates OSITO Roberts Primary Care Provider Active Team Status: Inactive Member Role Status Dates Airam Thomas APRN Attending Provider Active Start: May 13, 2023 End: May 13, 2023 Team Status: Inactive Member Role Status Dates NON STAFF Primary Care Provider Active Start: May 13, 2023 End: May 13, 2023 Jonathan Nick APRN SKIDDER OPERATOR-C Active Sta rt: May 13, 2023 End: May 13, 2023 Airam Thomas APRN Attending Provider Active Start: May 13, 2023 End: May 13, 2023 Silverware Washer Relationship Specialty Start Date End Date Marycruz Guzman APRN-OSITO [address] [place] [address] PCP - General 11/03/16 Team Status: Inactive Member Role Status Dates Marycruz Moreno OSITO Guzman Primary Care Provider Active S tart: October 04, 2023 End: October 04, 2023 Airam Thomas APRN Attending Provider Active Start: October 04, 2023 End: October 04, 2023 Goals (unrecognized section and content) Goals may be documented in a n alternate section FOR RECORDS PERTAINING TO PATIENTS WHO ARE [...] BE BASED ON THE PRIMARY CLINICAL RECORDS. [employer] provides no warranty or guarantee of the accuracy or completeness of information in this document.
--- NOTE | 2024-02-10 14:37 | PM.CN ---
Consult Note: HPI Data of Consult Patient: known to practice within the last 3 years Consult date: 09/27/23 Requesting Physician: Qiana Chiu NP Primary Care Provider: YOLANDA MAGAÑA Consult Narrative Reason for consult: low back, bilateral lower extremity pain Narrative: 68yof who presents for assessment. continues to have low back, bilateral lower extremity pain. imaging reviewed, which shows moderate to severe stenosis from l2-5. uses percocet, baclofen, and gabapentin. denies adverse med side effects. failed to benefit from greater than 6 weeks of provider guided HEP. Patient historically has declined interventional therapy and NS consult, however she is now interested in a spinal cord stimulator trial. Pain 10/10 increasing with all activity improved mildly from rest and current medications. 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 - Type 1 diabetes mellitus with ketoacidosis without coma (ICD-10) Kidney failure ?N19 - Unspecified kidney failure (ICD-10) Hypertension ?I10 - Essential (primary) hypertension (ICD-10) Surgical History History of cholecystectomy ?Z90.49 - Acquired absence of other specified parts of digestive tract (ICD-10) History of arthroscopy of left shoulder ?Z98.890 - Other specified postprocedural states (ICD-10) H/O hand surgery ?Z98.890 - Other specified postprocedural states (ICD-10) H/O section ?Z98.891 - History of uterine scar from previous surgery (ICD-10) H/O cervical spine surgery ?Z98.890 - Other specified postprocedural states (ICD-10) History of tonsillectomy and adenoidectomy ?Z90.89 - Acquired absence of other organs (ICD-10) History of carpal tunnel release of both wrists ?Z98.890 - Other specified postprocedural states (ICD-10) H/O: hysterectomy ?Z90.710 - Acquired absence of both cervix and uterus (ICD-10) Kidney transplant recipient ?Z94.0 - Kidney transplant status (ICD-10) Social History Smoking status: Never smoker Meds Home Medications and Allergies Home Medications ?Medication ?Instructions ?Recorded ?Confirmed ?Type OSCAL 11/23/22 History atorvastatin 40 mg tablet 40 mg PO .HS 11/23/22 04/20/23 History dulaglutide 1.5 mg/0.5 mL 1.5 mg subcut QWEEK 11/23/22 04/20/23 History subcutaneous pen injector (Trulicity) empagliflozin 25 mg tablet 25 mg PO DAILY 11/23/22 04/20/23 History (Jardiance) ferrous sulfate 325 mg (65 mg mg 11/23/22 History iron) tablet gabapentin 600 mg tablet mg PO TID 11/23/22 History insulin aspart U-100 100 unit/mL 30 unit subcut TID 11/23/22 04/20/23 History (3 mL) subcutaneous pen (Novolog FlexPen U-100 Insulin aspart) mycophenolate mofetil 500 mg tablet 800 mg PO BID 11/23/22 04/20/23 History sertraline 100 mg tablet 100 mg PO DAILY 11/23/22 04/20/23 History tacrolimus 1 mg capsule, 3 mg PO Q12H 11/23/22 04/20/23 History immediate-release baclofen 10 mg tablet 10 mg PO TID PRN muscle spasm #90 03/03/23 04/20/23 Rx tabs semaglutide 0.25 mg or 0.5 mg (2 0.25 mg subcut QWEEK 04/20/23 04/20/23 History mg/3 mL) subcutaneous pen injector (Ozempic) semaglutide 0.25 mg or 0.5 mg (2 0.25 mg subcut QWEEK 04/20/23 04/20/23 History mg/3 mL) subcutaneous pen injector (Ozempic) oxycodone-acetaminophen 7.5 mg-325 1 tab PO TID PRN pain #90 tabs 11/03/23 Rx mg tablet (Percocet) oxycodone-acetaminophen 7.5 mg-325 1 tab PO TID PRN pain #90 tabs 12/13/23 Rx mg tablet (Percocet) oxycodone-acetaminophen 7.5 mg-325 1 tab PO TID PRN pain #90 tabs 01/13/24 Rx mg tablet (Endocet) Allergies Allergy/AdvReac Type Severity Reaction Status Date / Time No Known Drug Allergies Allergy Verified 01/26/23 10:17 Exam Constitutional Documenting provider has reviewed patient's vital signs: yes Common normals: no apparent distress, oriented x3, healthy appearing, alert and well nourished General appearance: cooperative HENPR Common normals: normocephalic, hearing grossly normal bilaterally and moist oral mucous membranes Head and scalp: normocephalic Eye Common normals: PERRL Pupil: PERRL Neck & C-Spine Common normals: full ROM General: normal visual inspection Chest Common normals: inspection of chest normal Respiratory Common normals: normal respiratory effort, no retractions and no use of accessory muscles Back & Pelvis Lumbar spine/lower back: ROM limited, pain with ROM, straight leg raise positive right and straight leg raise positive left Sacroiliac joints: SI joint(s) abnormal Other: altered sensation to bilateral L4,5,S1 pattern strength 4/5 in BLE Extremity Common normals: normal to inspection and full ROM Neuro Common normals: oriented x3, CN's II-XII intact bilaterally, moves all extremities, no focal motor deficits, no sensory deficits noted and deep tendon reflexes 2+ bilaterally Sensorium/orientation: alert Gait (neuro): antalgic Motor exam: no movement abnormalities noted and strength abnormal Psych Common normals: mental status grossly normal, thought process normal, cooperative, affect normal, speech normal and activity/motor behavior normal Speech: normal speech Thought process: normal thought process Results Additional Findings Additional findings: If on a controlled substance or opioids, I have checked an [place] report on this patient and there are no aberrancies noted in the prescribing history.??If on a controlled substance or opioid a drug screen was completed and reviewed within the last year, and if there has not been a drug screen completed we ordered one today to monitor higher risk, state monitored pain medication use. As part of providing excellent, safe, comprehensive care, the following was completed at our patient's visit: 1. A medication reconciliation and review to ensure accurate knowledge of current/active medications, including asking our patients to inform us about any [id number] medications or herbal remedies/nutritional supplements/alternative remedies. 2. A review to specifically ensure our patients have had annual screening for screening for depression, screening for tobacco use, and screening for unhealthy alcohol use. For concerning screenings had a discussion with the patient, provided patient education, and recommended follow-up with primary care provider when appropriate. If patient noted with a risk of falling, they received education on strength, gait, and balance training to prevent future risk of falling. Assessment and Plan Assessment and Plan (1) Lumbar stenosis with neurogenic claudication: (2) Lumbar spondylosis: (3) Encounter for long-term use of opiate analgesic: Assessment and Plan: I feel these medications are improving the patient's quality of life and allow them to tolerate activities of daily living as well as participate in recreational activity.? The patient does not report intolerable side effects. The patient is NOT opioid naive and non-pharmacologic and non-opioid treatment has failed to significantly relieve the patient's pain and improve functionality. The patient has a diagnosis that is related to a somatic or visceral pain etiology. ? ?? I reviewed with the patient the potential risks and side effects with the use of? opioid medications including but not limited to respiratory depression,? sedation, and even . I verified the patient has access to naloxone should? these effects occur. I advised the patient to avoid the use of any other? sedation substances including alcohol, THC, and benzodiazepines while? taking opioid medications due to the risk of compounding side effects and? detrimental outcomes. I reviewed the COMMUNICATION ELECTRONIC TECHNICIAN, pain treatment agreement, urine? drug screen, and opioid start talking forms. The patient was advised to let? their family know they had Naloxone in case they would need to administer? the medication.? ?? A drug screen was completed within the last year, and no aberrancies were noted regarding their use of controlled substances. The patient understands they are subject to the terms and conditions of the pain contract that they have signed. ? ?? I have checked an [place] report on this patient today and there are no aberrancies noted in the prescribing history.? (4) Lumbar radiculopathy: Plan spinal cord stimulator trial under fluoroscopy with IV sedation, PAT to be completed prior to procedure. pending psychiatric evaluation. update lumbar xray with flexion. request cbc, cmp, a1c from PCP. risks vs benefits reviewed continue current medications, risks vs benefits reviewed narcan available at home
== END 2024-02-10 13:39 | disposition home or self-care (01) ==
LOC: PM 13:38
PROVIDERS: PCP Nurse Practitioner Family; Visit Provider Nurse Practitioner
DX: M48.062 Spinal stenosis, lumbar region with neurogenic claudication (principal); M47.816 Spondylosis without myelopathy or radiculopathy, lumbar region; Z79.891 Long term (current) use of opiate analgesic; M54.16 Radiculopathy, lumbar region
CPT/HCPCS: G0463

== ENCOUNTER 2024-05-17 11:26 | Outpatient (OUT) | payer MEDICARE, SELFPAY ==
--- OUTSIDE RECORDS SUMMARY | 2024-05-17 11:41 | XMS_ITS | CCD ---
Author Organization [facility] Care Team Providers Care Media Liaison Officer Name Role Phone Airam Thomas Unavailable Sara [...] Unavailable DR MARYCRUZ GUZMAN Primary Care Unavailable ELIESER ANNE Consulting Unavailable KELLEY ., DR OSIRIS Rajput Admitting Unavailable KELLEY ., DR OSIRIS Rajput Attending Unavailable DR MARYCRUZ GUZMAN Primary Care Unavailable KELLEY ., DR OSIRIS Rajput Consulting Unavailable DEON WHITMORE Consulting Unavailable KELLEY ., DR OSIRIS Rajput Admitting Unavailable ALLIE ., DR OSIRIS Rajput Attending Unavailable GÓMEZ, DR MARYCRUZ Moreno Primary Care Unavailable ELIESER ANNE Consulting Unavailable ALLIE ., DR OSIRIS Rajput Admitting Unavailable ALLIE ., DR OSIRIS Rajput Attending Unavailable GÓMEZ, DR MARYCRUZ Moreno Primary Care Unavailable EYAL .ELIESER Consulting Unavailable NON STAFF Primary Care Provider Unavailabl e William, MURALI Alegria K Attending Provider Airam Thomas K Attending Unavailable William Tondra K Admitting Unavailable NON STAFF Primary Care Unavailable Kunbrittaney PROTECTION OFFICER-HORTICULTURE INSTRUCTOR, Marilou Primary Care Provider Berhane ANDERSON, Tra Rowe Attending Unavailable MARYCRUZ GUZMAN Referring Unavailable MARYCRUZ GUMZAN Primary Care Unavailable MACARIO HOLDEN Admitting Unavailable MACARIO HOLDEN Attending Unavailable MARYCRUZ GUZMAN Primary Care Unavailable Anita PROTECTION OFFICER-FORMULATION SCIENTIST, Carrie Krishna Primary Care Provider CARRIE HOWARD Attending Unavailable ANITA CARRIE L Referring Unavailable ANITA CARRIE L Primary Care Unavailable ANITA, CARRIE L Referring Unavailable ANITA, CARRIE L Primary Care Unavailable Medications Current Medications Medication [...] days Sep, Active acetaminophen 325 mg / oxyCODONE hydrochloride 7.5 mg oral tablet (12 sources) Opioid Agonist Start: 10-04-2023 take 1 [...] 1 TABLET BY MOUTH TWICE DAILY NEEDED Active aspirin 81 mg delayed release oral tablet (20 sources) Platelet Aggregation Inhibitor, Nonsteroidal Anti-inflammatory Drug Start: 08-08-2019 Aspirin (Kory Lo w Dose Aspirin) 81 mg Tablet,Delayed Release (Dr/Ec) Active 81 MG PO Every morning August 08, 2019 1:00am Aspirin 81 MG as directed Orally Active baclofen 10 mg oral tablet (11 sources) gamma-Aminobutyric Acid-ergic Agonist Start: 05-08-2024 take 1 tablet by mouth three times daily baclofen (LIORESAL) 10 mg tablet Indications: Diabetic polyneuropathy associated with type 2 diabetes mellitus (CMS-HCC) Take 1 tablet (10 mg total) by mouth 3 (three) times a day. 270 tablet 1 05/08/2024 Active Start: 11-06-2023 End: 05-05-2024 take 1 tablet by mouth three times daily baclofen (LIORESAL) 10 mg tablet Indications: Diabetic polyneuropathy associated with type 2 diabetes mellitus (CMS-HCC) take 1 tablet by mouth three times a day 270 tablet 1 11/06/2023 05/05/2024 Discontinued (Reorder) Start: 04-06-2023 take 1 tablet by nirali th three times daily baclofen (LIORESAL) 10 mg [...] mg / cholecalciferol 200 unt oral tablet (3 sources) Vitamin D Start: 08-08-2019 take 1 tablet by mouth once daily in the morning Calcium Carbonate-Vitamin D3 Active 1 TAB PO Every morning August 08, 2019 1:00am cholecalciferol 0.05 mg oral capsule (2 sources) Vitamin D Start: 10-04-2023 take 2000 [IU] by mouth once daily Cholecalciferol (Vitamin D3) Active 2000 UNIT PO Daily October 04, 2023 12:00am cyclobenzaprine hydrochloride 10 mg oral tablet (3 sources) Muscle Relaxant Start: 08-08-2019 take 10 mg by mouth three times daily Cyclobenzaprine Active 10 MG PO Three times daily August 08, 2019 1:00am diclofenac sodium 0.01 mg/mg topical gel (20 sources) Nonsteroidal Anti-inflammatory Drug Start: 10-04-2023 apply 2 g topically twice daily Diclofenac Sodium Active TOPICAL October 04, 2023 12:00am FreeTextSi grams to affected area Transdermal Twice a day; Note: Source Status: Taking; Refills: 0; Provider: Zeynep Ruiz ( ) Start: 10-25-2022 End: 04-13-2024 diclofenac sodium (VOLTAREN) 1 % gel Indications: Osteoarthritis of both hands, unspecified osteoarthritis type APPLY TOPICALLY 4 TIMES A DAY 400 g 1 10/25/2022 04/13/2024 Discontinued (Therapy completed) Diclofenac Sodiu m 1 % 2 grams to affected area Transdermal Twice a day for 30 Active diclofenac sodium-menthoL 1. 5-10 % combo pack (7 sources) Start: 04-13-2024 diclofenac sod ium-menthoL 1.5-10 % combo pack Apply 1 Application topically in the morning and 1 Application at noon and 1 Application in the evening and 1 Application before bedtime. 239 mL 1 04/13/2024 Active End: 04-13-2024 diclofenac sodium-menthoL 1. 5-10 % combo pack as directed Externally QID 04/13/2024 Discontinued (Reorder) diclofenac sodiu m-menthoL 1.5-10 % combo pack as directed Externally QID Active diclofenac sodiu m-menthoL 1.5-10 % combo pack as directed Externally QID 0 Active empagliflozin 25 mg oral tablet (20 sources) Sodium-Glucose Cotransporter 2 Inhibitor Start: 02-23-2024 take 25 mg by mouth once daily in the morning Empagliflozin Active 25 MG PO Every morning February 23, 2024 10:51am Start: 08-08-2019 End: 02-23-2024 take 25 mg by mouth once daily in the morning Empagliflozin Discontinued 25 MG PO Every morning October 25, 2023 1:08pm February 23, 2024 10:51am take 1 tablet by nirali th once daily empagliflozin (JARDIANCE) 10 mg tablet tablet 1 tablet Orally Once a day for 30 day(s) Active ferrous sulfate 325 mg oral tablet (20 sources) Start: 08-08-2019 End: 08-12-2023 take 1 tablet by mouth twice daily ferrous sulfate 325 (65 FE) mg tablet Indications: Anemia, unspecified TAKE 1 TABLET BY MOUTH TWICE A DAY 180 tablet 3 08/12/2023 Active take 1 tablet by nirali th every twenty-four hours Ferrous Sulfate 325 (65 Fe) MG 1 tablet Orally Once a day Active take 1 tablet by mouth once sharon y Ferrous Sulfate 325 (65 Fe) MG 1 tablet Orally Once a day Active flash glucose scanning reade r (FREESTYLE SYLVIA 14 DAY READER) misc (7 sources) flash glucose sc anning reader (FREESTYLE SYLVIA 14 DAY READER) misc FreeStyle Sylvia 14 Day [place] Active flash glucose sc anning reader (FREESTYLE SYLVIA 14 DAY READER) misc FreeStyle Sylvia 14 Day [place] 0 Active flash glucose sensor (FREEST YLE SYLVIA 14 DAY SENSOR) kit (7 sources) flash glucose se nsor (FREESTYLE SYLVIA 14 DAY SENSOR) kit FreeStyle Sylvia 14 Day Sensor kit USE DIRECTED CHANGE EVERY 14 DAYS Active flash glucose se nsor (FREESTYLE SYLVIA 14 DAY SENSOR) kit FreeStyle Sylvia 14 Day Sensor kit USE DIRECTED CHANGE EVERY 14 DAYS 0 Active flash glucose sensor (FreeSt yle Sylvia 2 Sensor) (2 sources) Start: 10-04-2023 flash glucose sensor (FreeStyle Sylvia 2 Sensor) Active .Route October 04, 2023 12:00am Start: 10-04-2023 flash glucose sensor (FreeStyle Sylvia 2 Sensor) Active .ROUTE October 04, 2023 12:00am FreeStyle Sylvia 2 Sensor - (18 sources) FreeStyle Sylvia 2 Sensor - USE DIRECTED. CHANGE EVERY 14 DAYS for 84 Active FreeStyle Sylvia 2 Sensor - as directed SQ change every 14 days for 84 days Active FreeStyle Precision Harish Test - (20 sources) FreeStyle Precis ion Harish Test - USE DIRECTED TWICE A DAY for 90 Active FreeStyle Precis ion Harish Test - as directed In Vitro bid for 90 days Active gabapentin 600 mg oral tablet (10 sources) Anti-epileptic Agent Start: 08-08-2019 gabapenti n (NEURONTIN) 600 mg tablet Indications: Radiculopathy due to lumbar intervertebral disc disorder Take 1 tablet (600 mg total) by mouth in the morning and 1 tablet (600 mg total) at noon and 1 tablet (600 mg total) in the evening and 1 tablet (600 mg total) before bedtime. 360 tablet 04/06/2023 Active 3 ml insulin degludec 100 unt/ml pen injector (20 sources) Insulin Analog insulin degludec (TRESIBA FLEXTOUCH U-100) 100 unit/mL (3 mL) insulin pen Inject 60 Units under the skin nightly. Active Tresiba FlexTouc h 200 UNIT/ML INJECT 60 UNITS SUBCUTANEOUSLY ONCE DAILY. MAY TITRATE UP TO 70 UNITSPER DAY DIRECTED for 90 Active inject 62 [IU] by shi bcutaneous injection once daily in the morning Tresiba FlexTouch 200 UNIT/ML 62 units Subcutaneous qam (titrate up to 90 units/day) stop lantus Active Insulin Degludec (Tresiba Flextouch U-200) 200 unit/mL (3 mL) insulin pen (6 sources) Start: 02-23-2024 inject 60 [IU] by subcutaneous injection once daily in the morning, then inject 70 [IU] by subcutaneous injection once daily Insulin Degludec (Tresiba Flextouch U-200) 200 unit/mL (3 mL) insulin pen Active 60 UNIT SUBCUT Every morning February 23, 2024 10:21am INJECT 60 UNITS SUBCUTANEOUSLY ONCE DAILY. MAY TITRATE UP TO 70 UNITS PER DAY DIRECTED; Start: 10-04-2023 End: 02-23-2024 inject 62 [IU] by subcutaneous injection once daily in the morning, then inject 70 [IU] by subcutaneous injection once daily Insulin Degludec (Tresiba Flextouch U-200) 200 unit/mL (3 mL) insulin pen Discontinued 62 UNIT SUBCUT Every morning October 04, 2023 11:36am February 23, 2024 10:24am FreeTextSig: INJECT 62 UNITS SUBCUTANEOUSLY ONCE DAILY. MAY TITRATE UP TO 70 UNITS PER DAY DIRECTED; Note: Source Status: Taking; Refills: 3; Qty: 36 Milliliter; Provider: William Alegria ( ) Start: 08-17-2023 End: 10-04-2023 inject 60 [IU] by subcutaneous injection once daily in the morning, then inject 70 [IU] by subcutaneous injection once daily Insulin Degludec (Tresiba Flextouch U-200) 200 unit/mL (3 mL) insulin pen Discontinued 60 UNIT SUBCUT Every morning August 17, 2023 5:25pm October 04, 2023 11:38am FreeTextSig: INJECT 60 UNITS SUBCUTANEOUSLY ONCE DAILY. MAY TITRATE UP TO 70 UNITS PER DAY DIRECTED; Note: Source Status: Taking; Refills: 1; Qty: 36 Milliliter; Provider: William Alegria ( ) Start: 08-17-2023 inject 60 [IU] by shi bcutaneous injection once daily in the morning, then inject 70 [IU] by subcutaneous injection once daily Insulin Degludec (Tresiba Flextouch U-200) 200 unit/mL (3 mL) insulin pen Active 60 UNIT SUBCUT Every morning August 17, 2023 5:25pm FreeTextSig: INJECT 60 [...] as directed for 30 days Jan, Active Insulin Lispro-Aabc (Lyumjev Kwikpen U-100 Insulin) 100 unit/mL insulin pen (1 source) Start: 10-27-2023 Insulin Lispro-Aabc (Lyumjev Kwikpen U-100 Insulin) 100 unit/mL insulin pen Active 0 SUBCUT Use as Directed October 27, 2023 12:00am INJECT 25, 30, 35 UNITS ACCORDING TO MEAL SIZE BEFORE MEALS. CORRECTIVE SCALE 1:10 BEFORE MEALS 3 TIMES A DAY (AT BEDTIME IF GREATER THAN 200 HALF DOSE) DIRECTED, UP TO 120 UNITS PER DAY; isopropyl alcohol 0.7 ml/ml medicated pad (7 sources) alcohol swabs pads, medicated BD Alcohol Swabs Active methylPREDNISolone 4 mg oral tablet (5 sources) Corticosteroid Start: 10-27-2022 Medrol 4 MG as directed Orally for 7 days October, Active mycophenolate mofetil 250 mg oral capsule (20 sources) Start: 08-08-2019 take 1000 mg by mouth every twelve hours Mycophenolate Mofetil Active 1000 MG PO Q12H August 08, 2019 1:00am take 4 capsules by m outh twice daily mycophenolate (CELLCEPT) 250 mg capsule 4 capsules Orally BID for 90 days Active End: 04-13-2024 take 2 tablets by mouth in the morning, then take 2 tablets by mouth at bedtime mycophenolate (CELLCEPT) 500 mg tablet Take 2 tablets (1,000 mg total) by mouth in the morning and 2 tablets (1,000 mg total) before bedtime. 04/13/2024 Discontinued (Therapy completed) oxyCODONE hydrochloride 5 mg oral tablet (17 sources) Opioid Agonist take 1 tablet by mouth every six hours oxyCODONE HCl 5 MG 1 tablet as needed Orally every 6 hrs Active Ozempic (2 MG/DOSE) 8 MG/3ML (1 source) Start: 12-05-19 inject 1 mg by subcutaneous injection every week Ozempic (2 MG/DOSE) 8 MG/3ML 2mg Subcutaneous once weekly for 84 days stope ozempic 1mg Nov, Active OZEMPIC 2 mg/dose (8 mg/3 mL) pen injector (7 sources) Start: 02-20-20 OZEMPIC 2 mg/dose (8 mg/3 mL) pen injector 02/19/2022 Active Start: 02-19-2022 OZEMPIC 2 mg/d ose (8 mg/3 mL) pen injector pen needle, diabetic (BD Nan o 2nd Gen Pen Needle) (2 sources) Start: 10-04-2023 pen needle, di abetic (BD Anuja 2nd Gen Pen Needle) Active .Route October 04, 2023 12:00am Start: 10-04-2023 pen needle, di abetic (BD Anuja 2nd Gen Pen Needle) Active .ROUTE October 04, 2023 12:00am rosuvastatin calcium 20 mg oral tablet (10 sources) HMG-CoA Reductase Inhibitor Start: 04-17-2024 take 1 tablet by mouth in the morning rosuvastatin (CRESTOR) 20 mg tablet Take 1 tablet (20 mg total) by mouth in the morning. 90 tablet 1 04/17/2024 Active Start: 10-04-2023 End: 04-17-2024 take 1 tablet by mouth in the morning rosuvastatin (CRESTOR) 10 mg tablet Indications: Mixed hyperlipidemia TAKE 1 TABLET (10 MG TOTAL) BY MOUTH IN THE MORNING 90 tablet 03/13/2024 04/17/2024 Discontinued (Ineffective) Start: 11-10-2022 take 1 tablet by nirali th in the morning rosuvastatin (CRESTOR) 10 mg tablet Indications: Mixed hyperlipidemia TAKE 1 TABLET (10 MG TOTAL) BY MOUTH IN THE MORNING 90 tablet 1 04/12/2023 Active saccharomyces boulardii 250 mg oral capsule (8 sources) Start: 04-17-2024 take 1 capsule by mouth once daily Saccharomyces boulardii (FLORASTOR) 250 mg capsule Indications: Diabetic polyneuropathy associated with type 2 diabetes mellitus (CMS-HCC) Take 1 capsule (250 mg total) by mouth Daily at 0300. 90 capsule 3 04/17/2024 Active Start: 04-06-2023 End: 04-10-2024 take 1 capsule by mouth once daily Saccharomyces boulardii (FLORASTOR) 250 mg capsule Indications: Diabetic polyneuropathy associated with type 2 diabetes mellitus (CMS-HCC) Take 1 capsule (250 mg total) by mouth Daily at 0300. 90 capsule 3 04/06/2023 04/10/2024 Discontinued (Reorder) Semaglutide (Ozempic) 2 mg/dose (8 mg/3 mL) pen injector (3 sources) Start: 02-23-2024 inject 2 mg by subcutaneous injection every week Semaglutide (Ozempic) 2 mg/dose (8 mg/3 mL) pen injector Active 2 MG SUBCUT every week February 23, 2024 10:50am Start: 10-04-2023 End: 02-23-2024 inject 2 mg by subcutaneous injection every week Semaglutide (Ozempic) 2 mg/dose (8 mg/3 mL) pen injector Discontinued MG SUBCUT October 04, 2023 12:00am February 23, 2024 10:51am FreeTextSig: INJECT 2MG SUBCUTANEOUSLY ONCE WEEKLY; Note: Source Status: Taking; Refills: 3; Qty: 9 Milliliter; Provider: William Alegria ( ) Start: 10-04-2023 inject 2 mg by subcu taneous injection every week Semaglutide (Ozempic) 2 mg/dose (8 mg/3 mL) pen injector Active MG SUBCUT October 04, 2023 12:00am FreeTextSig: INJECT 2MG SUBCUTANEOUSLY ONCE WEEKLY; Note: Source Status: Taking; Refills: 3; Qty: 9 Milliliter; Provider: William Alegria ( ) sertraline 100 mg oral tablet (13 sources) Serotonin Reuptake Inhibitor Start: 08-08-2019 sertraline (ZOLOFT) 100 mg tablet TAKE 1 TABLET DAILY 90 tablet 1 05/12/2023 Active End: 04-13-2024 take 1 tablet by mouth in the morning sertraline (ZOLOFT) 50 mg tablet Take 1 tablet (50 mg total) by mouth in the morning. 04/13/2024 Discontinued (Therapy completed) tacrolimus 1 mg oral capsule (20 sources) Calcineurin Inhibitor Immunosuppressant Start: 08-08-2019 take 2 mg by mouth once daily in the morning Tacrolimus Active 2 MG PO Every morning August 08, 2019 1:00am Start: 08-08-2019 take 1 mg by mouth o nce daily at bedtime Tacrolimus Active 1 MG PO Daily at bedtime August 08, 2019 1:00am End: 04-13-2024 tacrolimus (PROGRAF) 1 mg ca psule Take 2 capsules (2 mg total) by mouth in the morning and 2 capsules (2 mg total) at noon and 2 capsules (2 mg total) in the evening. Active traZODone hydrochloride 150 mg oral tablet (10 sources) Serotonin Reuptake Inhibitor Start: 04-13-2024 take 1 tablet by mouth once daily traZODone (DESYREL) 150 mg tablet Take 1 tablet (150 mg total) by mouth nightly. 90 tablet 1 04/13/2024 Active Start: 03-04-2023 End: 04-13-2024 take 1 tablet by mouth once daily traZODone (DESYREL) 100 mg tablet Take 1 tablet (100 mg total) by mouth nightly. 90 tablet 1 03/29/2023 04/13/2024 Discontinued (Therapy completed) Vitamin D3 2000 Unit (17 sources) take 1 capsule by mo [facility] once daily Vitamin D3 2000 Unit 1 capsule Orally Once a day Active Completed/Discontinued Medications Medication Drug Class(es) Dates Sig (Normalized) Sig (Original) acetaminophen 325 mg / HYDROcodone bitartrate 5 mg oral tablet (3 sources) Opioid Agonist Start: 08-21-2019 End: 02-23-2024 take 1 tablet by mouth every four to six hours Hydrocodone-Acetamin ophen (Henning) 5-325 mg tablet Discontinued 1 - 2 TAB PO EVERY 4-6 HOURS 30 4 August 21, 2019 February 23, 2024 10:22am atorvastatin 40 mg oral tablet (20 sources) HMG-CoA Reductase Inhibitor Start: 08-08-2019 End: 10-04-2023 take 40 mg by mouth once daily in the morning Atorvastatin Discontinued 40 MG PO Every morning August 08, 2019 1:00am October 04, 2023 10:36am b complex vitamins capsule (3 sources) Start: 04-06-2023 End: 04-13-2024 take 1 capsule by mouth in the morning b complex vitamins capsule Indications: Diabetic polyneuropathy associated with type 2 diabetes mellitus (CMS-HCC) Take 1 capsule by mouth in the morning. 90 capsule 3 04/06/2023 04/13/2024 Discontinued (Therapy completed) Start: 04-06-2023 take 1 capsule by mo uth in the morning b complex vitamins capsule Indications: Diabetic polyneuropathy associated with type 2 diabetes mellitus (CMS-HCC) Take 1 capsule by mouth in the morning. 90 capsule 3 04/06/2023 Active DAILY-JAYLENE, WITH FOLIC ACID, 400 mcg tablet (3 sources) Start: 09-18-2022 End: 04-13-2024 take 1 tablet by mouth in the morning DAILY-JAYLENE, WITH FOLIC ACID, 400 mcg tablet Take 1 tablet by mouth in the morning. 09/18/2022 04/13/2024 Discontinued (Therapy completed) Start: 09-18-2022 take 1 tablet by nirali th in the morning DAILY-JAYLENE, WITH FOLIC ACID, 400 mcg tablet Take 1 tablet by mouth in the morning. 09/18/2022 Active Start: 09-18-2022 take 1 tablet by nirali th in the morning DAILY-JAYLENE, WITH FOLIC ACID, 400 mcg tablet Take 1 tablet by mouth in the morning. 0 09/18/2022 Active 0.5 ml dulaglutide 3 mg/ml auto-injector (3 sources) GLP-1 Receptor Agonist Start: 08-08-2019 End: 10-04-2023 inject 1 dose by subcutaneous injection every week Dulaglutide Discontinued 1 DOSE SUBCUT every week August 08, 2019 1:00am October 04, 2023 10:37am fenofibrate 48 mg oral tablet (3 sources) Peroxisome Proliferator Receptor alpha Agonist Start: 08-08-2019 End: 10-04-2023 take 48 mg by mouth once daily in the morning Fenofibrate Nanocrystallized Discontinued 48 MG PO Every morning August 08, 2019 1:00am October 04, 2023 10:37am FreeStyle Sylvia 14 Day [place] - (8 sources) Start: 08-29-2020 FreeStyle Sylvia 14 Day [place] - as directed Daily for 365 days E11.Aug, Not-Taking Start: 08-29-2020 FreeStyle Libr e 14 Day [place] - as directed Daily for 365 days E11.21 Aug, Active FreeStyle Sylvia 14 Day Senso r - (8 sources) FreeStyle Sylvia 14 Day Sensor - as directed SQ change every 14 days Not-Taking FreeStyle Sylvia 14 Day Sensor - as directed SQ change every 14 days Active insulin aspart protamine, human 70 unt/ml / insulin aspart, human 30 unt/ml injectable suspension (3 sources) Insulin Analog End: 04-13-2024 insulin asp prt-insulin aspart (NovoLOG 70/30) 100 unit/mL (70-30) injection Inject under the skin 2 (two) times a day before meals. 04/13/2024 Discontinued (Therapy completed) Insulin Aspart U-100 (Novolog Flexpen U-100 Insulin) 100 unit/mL (3 mL) insulin pen (6 sources) Start: 10-25-2023 End: 10-27-2023 Insulin Aspart U-100 (Novolog Flexpen U-100 Insulin) 100 unit/mL (3 mL) insulin pen Discontinued 0 SUBCUT .COMPLEX 120 October 25, 2023 1:06pm October 27, 2023 5:46pm subcutaneously; FreeTextSig: INJECT 25, 30, 35 UNITS SUBCUTANEOUSLY BASED ON MEAL SIZE BEFORE MEALS. CORRECTIVE SCALE 1:10 BEFORE MEALS 3 TIMES A DAY (AT BEDTIME IF GREATER THAN 200 HALF DOSE) DIRECTED, UP TO 120 UNITS PER DAY.; Note: Source Status: Taking; Refills: 3; Qty: 120 Milliliter; Provider: William Alegria ( ) Start: 10-04-2023 End: 10-25-2023 Insulin Aspart U-100 (Novolo g Flexpen U-100 Insulin) 100 unit/mL (3 mL) insulin pen Discontinued 0 SUBCUT .COMPLEX 120 October 04, 2023 11:36am October 25, 2023 1:08pm subcutaneously; FreeTextSig: INJECT 25, 30, 35 UNITS SUBCUTANEOUSLY BASED ON MEAL SIZE BEFORE MEALS. CORRECTIVE SCALE 1:10 BEFORE MEALS 3 TIMES A DAY (AT BEDTIME IF GREATER THAN 200 HALF DOSE) DIRECTED, UP TO 120 UNITS PER DAY.; Note: Source Status: Taking; Refills: 3; Qty: 120 Milliliter; Provider: William Alegria ( ) Start: 08-17-2023 End: 10-04-2023 Insulin Aspart U-100 (Novolo g Flexpen U-100 Insulin) 100 unit/mL (3 mL) insulin pen Discontinued 0 SUBCUT .COMPLEX 120 August 17, 2023 5:11pm October 04, 2023 11:38am subcutaneously; FreeTextSig: INJECT 25, 30, 35 UNITS SUBCUTANEOUSLY BASED ON MEAL SIZE BEFORE MEALS. CORRECTIVE SCALE 1:10 BEFORE MEALS 3 TIMES A DAY (AT BEDTIME IF GREATER THAN 200 HALF DOSE) DIRECTED, UP TO 120 UNITS PER DAY.; Note: Source Status: Taking; Refills: 3; Qty: 120 Milliliter; Provider: William Alegria ( ) Start: 08-17-2023 Insulin Aspart U-100 (Novolog Flexpen [...] 120 Milliliter; Provider: William Alegria ( ) insulin aspart, human (20 sources) Insulin Analog [...] Three times daily August 08, 2019 12:00am End: 04-13-2024 insulin aspart U-100 (NovoLO G FlexPen U-100 Insulin) 100 unit/mL (3 mL) insulin pen as directed Subcutaneous 04/13/2024 Discontinued (Therapy completed) insulin aspart U -100 (NovoLOG FlexPen U-100 [...] ml insulin glargine 100 unt/ml pen injector (3 sources) Insulin Analog Start: 08-08-2019 End: 08-17-2023 inject 50 [IU] by subcutaneous injection twice daily Insulin Glargine Discontinued 50 UNITS SUBCUT Twice daily August 08, 2019 1:00am August 17, 2023 5:08pm magnesium oxide 400 mg oral tablet (3 sources) Start: 04-06-2023 End: 04-13-2024 take 1 tablet by mouth in the morning magnesium oxide (MAGOX) 400 mg tablet Indications: Diabetic polyneuropathy associated with type 2 diabetes mellitus (CMS-HCC) Take 1 tablet (400 mg total) by mouth in the morning. 90 tablet 3 04/06/2023 04/13/2024 Discontinued (Therapy completed) pioglitazone 15 mg oral tablet (3 sources) Peroxisome Proliferator Receptor alpha Agonist, Peroxisome [...] mg / trimethoprim 160 mg oral tablet (3 sources) Dihydrofolate Reductase Inhibitor Antibacterial, Sulfonamide Antimicrobial Start: 08-21-2019 End: 10-04-2023 take 1 tablet by mouth twice daily Sulfamethoxazole-Tri methoprim (Bactrim Ds) 800-160 mg tablet Discontinued 1 TAB PO Twice daily 03 18August 21, 2019 12:00am October 04, 2023 10:38am triamcinolone acetonide 40 mg/ml injectable suspension (20 sources) Corticosteroid Start: 07-22-2022 Kenalog-40 Jul, 40 mg Start: 07-22-2022 Kenalog-40 Jul, 20 mg Vitamin B Complex (3 sources) End: 04-13-2024 vitamin B complex (B COMPLEX 1 ORAL) as directed Orally 04/13/2024 Discontinued (Therapy completed) vitamin B comple x (B COMPLEX 1 ORAL) as directed Orally Active vitamin B comple x (B COMPLEX 1 ORAL) as directed Orally 0 Active Problems Active Problems Problem Classification Problem Date Documented Date Episodic/Chronic Administrative/socia l admission (20 sources) Dietary management surveillance; Translations: [Dietary counseling and surveillance] Onset: 08-05-2021 Resolved: 12-04-2021 Episodic Anxiety disorders (7 sources) Anxiety; Translations: [Anxiety disorder, unspecified] Onset: 05-18-2022 05-18-2022 Chronic Chronic kidney disease (8 sources) Kidney transplant status; Translations: [Chronic kidney disease, stage 2 (mild)] Onset: 08-05-2021 Resolved: 12-04-2021 Chronic Deficiency and other anemia (1 source) Anemia; Translations: [Anemia, unspecified] 08-12-2023 Episodic Diabetes mellitus with complications (20 sources) Disorder of kidney due to diabetes mellitus; Translations: [Type 2 diabetes mellitus with diabetic nephropathy] Onset: 01-11-2018 Resolved: 12-04-2021 Chronic Diabetes mellitus without complication (8 sources) Type 2 diabetes mellitus without complications; Translations: [Diabetes mellitus] Onset: 03-28-2013 05-18-2022 Chronic Disorders of lipid metabolism (20 sources) Hyperlipidemia; Translations: [Hyperlipidemia, unspecified] Onset: 03-28-2013 Resolved: 12-04-2021 Chronic Essential hypertension (20 sources) Hypertensive disorder; Translations: [Essential (primary) hypertension] Onset: 03-28-2013 Resolved: 12-04-2021 Chronic Genitourinary symptoms and ill-defined conditions (1 source) Proteinuria, unspecified Episodic Immunity disorders (9 sources) Immunosuppression; Translations: [Immunodeficiency, unspecified] Onset: 04-11-2013 05-18-2022 Chronic Immunizations and screening for infectious disease (2 sources) Influenza vaccination given; Translations: [Encounter for immunization] Onset: 04-13-2024 04-13-2024 Episodic Menopausal disorders (17 sources) Menopause present; Translations: [Menopausal and female climacteric states] Chronic Nutritional deficiencies (20 sources) Vitamin D deficiency; Translations: [Vitamin D deficiency, unspecified] Onset: 08-05-2021 Resolved: 12-04-2021 Chronic Osteoarthritis (8 sources) Arthritis of hand; Translations: [Primary osteoarthritis, right hand] Chronic Osteoporosis (7 sources) Osteoporosis; Translations: [Age-related osteoporosis without current pathological fracture] Onset: 10-06-2017 05-18-2022 Chronic Other acquired deformities (20 sources) Spondylolisthesis; Translations: [Spondylolisthesis, lumbar region] Episodic Other acquired deformities (17 sources) Lumbar spondylolisthesis; Translations: [Spondylolisthesis, lumbar region] Episodic Other aftercare (20 sources) Long-term current use of insulin; Translations: [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 (current) 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 of insulin] Episodic Other aftercare (7 sources) nursing home (current) use of insulin; Translations: [HALF-WAY CURRENT USE OF INSULIN] Onset: 08-05-2021 Resolved: [...] Chronic Other nutritional; endocrine; and metabolic disorders (8 sources) Morbid obesity; Translations: [Morbid (severe) obesity due to excess calories] Onset: 05-19-2022 05-19-2022 Chronic Other nutritional; endocrine; and metabolic disorders (1 source) Body mass index 30+ - obesity; Translations: [Body mass index (BMI) 36.0-36.9, adult] 10-04-2023 Chronic Other nutritional; endocrine; and metabolic disorders (1 source) Body mass index (BMI) 36.0-36.9, adult; Translations: [Body Mass Index 36.0-36.9, adult] 02-23-2024 Chronic Other nutritional; endocrine; and metabolic disorders (1 source) Morbid (severe) obesity due to excess calories; Translations: [Morbid (severe) obesity due to excess calories] Onset: 05-19-2022 Chronic Other skin disorders (1 source) Localized swelling, mass and lump, right upper limb Episodic Residual codes; unclassified (17 sources) Noncompliance with treatment; Translations: [Patient's noncompliance with other medical treatment and regimen] Episodic Residual codes; unclassified (1 source) Other specified postprocedural states Episodic Spondylosis; intervertebral disc disorders; other back problems (12 sources) Spondylosis without myelopathy or radiculopathy, lumbar region; Translations: [Prolapsed lumbar intervertebral disc] Onset: 09-06-2015 Chronic Unclassified (3 sources) LOW BACK PAIN, UNSPECIFIED; Translations: [LOW BACK PAIN, UNSPECIFIED] Onset: 07-03-2022 Unclassified (1 source) refill on medications Onset: 04-13-2024 Past or Other Problems Problem Classification Problem Date Documented Da te Episodic/Chronic Cancer of kidney and renal pelvis (7 sources) Renal cell carcinoma; Translations: [Malignant neoplasm of unspecified kidney, except renal pelvis] Onset: 03-28-2013 Resolved: 05-19-2022 05-19-2022 Chronic Mood disorders (7 sources) Mood disorders Onset: 04-06-2023 Resolved: 04-13-2024 04-06-2023 Mycoses (7 sources) Onychomycosis; Translations: [Tinea unguium] Onset: 01-11-2018 05-18-2022 Episodic Other and unspecified benign neoplasm (7 sources) History of polyp of colon; Translations: [Personal history of colonic polyps] Onset: 08-15-2020 07-14-2023 Episodic Other and unspecified benign neoplasm (1 source) Personal history of colonic polyps; Translations: [Personal history of colonic polyps] Onset: 07-14-2023 Episodic Other and unspecified benign neoplasm (1 source) Personal history of colonic polyps Onset: 07-14-2023 Episodic Residual codes; unclassified (8 sources) Insomnia; Translations: [Insomnia, unspecified] Onset: 05-18-2022 05-18-2022 Episodic Spondylosis; intervertebral disc disorders; other back problems (20 sources) Spinal stenosis, lumbar region without neurogenic claudication; Translations: [Intervertebral disc disorders with radiculopathy, lumbar region] Onset: 01-06-2022 Episodic Unclassified (1 source) LOW BACK PAIN, UNSPECIFIED; Translations: [LOW BACK PAIN, UNSPECIFIED] Onset: 09-24-2022 Results Test Name Value Interpretation Reference Range Facility COMPREHENSIVE METABOLIC PANE [place] 04-13-2024 Albumin [Mass/Vol] 4.0 g/dL Normal 3.2-5.3 [facility] Comment on above: Performed By: #### C TAYLOR, 48639-7 #### [facility] ([id number]) [address], [address] [place] [address] ALP [Catalytic activity/Vol] 90 U/L Normal 39-130 [facility] Comment on above: Performed By: #### C TAYLOR 02364-4 #### [facility] ([id number]) [address], [address] [place] [address] ALT [Catalytic activity/Vol] 13 U/L Normal 0-31 [facility] Comment on above: Performed By: #### David VAZQUEZ, 15265-3 #### [facility] ([id number]) [address], [address] [place] [address] Anion gap [Moles/Vol] 13 mmol/L Normal 5-15 [facility] Comment on above: Performed By: #### David VAZQUEZ, 78407-2 #### [facility] ([id number]) [address], [address] [place] [address] AST [Catalytic activity/Vol] 12 U/L Normal 0-41 [facility] Comment on above: Performed By: #### David VAZQUEZ, 48642-5 #### [facility] ([id number]) [address], [address] [place] [address] Bilirubin [Mass/Vol] 0.4 mg/dL Normal 0.3-1.2 [facility] Comment on above: Performed By: #### David VAZQUEZ, 55088-9 #### [facility] ([id number]) [address], [address] [place] [address] Calcium [Mass/Vol] 9.1 mg/dL Normal 8.5-10.5 [facility] Comment on above: Performed By: #### David VAZQUEZ, 72161-1 #### [facility] ([id number]) [address], [address] [place] [address] Chloride [Moles/Vol] 103 mmol/L Normal 98-109 [facility] Comment on above: Performed By: #### David VAZQUEZ, 81009-9 #### [facility] ([id number]) [address], [address] [place] [address] CO2 [Moles/Vol] 25 mmol/L Normal 22-32 [facility] Comment on above: Performed By: #### David VAZQUEZ, 32924-8 #### [facility] ([id number]) [address], [address] [place] [address] Creatinine [Mass/Vol] 0.55 mg/dL Normal 0.40-1.00 [facility] Comment on above: Result Comment: METH OD TRACEABLE TO IDMS STANDARD Performed By: #### David VAZQUEZ, 03454-1 #### [facility] ([id number]) [address], [address] [place] [address] eGFR (CKD-EPI) NON-RACE DEPENDENT >90 Normal >59 [facility] Comment on above: Result Comment: Reported eGFR is based on the CKD-EPI 2020 equation that does not use a race coefficient. Performed By: #### David VAZQUEZ, 38054-3 #### [facility] ([id number]) [address], [address] [place] [address] Glucose [Mass/Vol] 231 mg/dL High 65-99 [facility] Comment on above: Performed By: #### David VAZQUEZ, 12120-7 #### [facility] ([id number]) [address], [address] [place] [address] Potassium [Moles/Vol] 3.8 mmol/L Normal 3.5-5.0 [facility] Comment on above: Performed By: #### David VAZQUEZ, 03905-7 #### [facility] ([id number]) [address], [address] [place] [address] Protein [Mass/Vol] 6.9 g/dL Normal 6.0-8.0 [facility] Comment on above: Performed By: #### David VAZQUEZ, 83576-6 #### [facility] ([id number]) [address], [address] [place] [address] Sodium [Moles/Vol] 141 mmol/L Normal 134-146 [facility] Comment on above: Performed By: #### David VAZQUEZ, 49654-6 #### [facility] ([id number]) [address], [address] [place] [address] Urea nitrogen [Mass/Vol] 11 mg/dL Normal 5-27 [facility] Comment on above: Performed By: #### David VAZQUEZ, 52283-5 #### [facility] ([id number]) [address], [address] [place] [address] Lipid 1996 panelon 4 Cholesterol [Mass/Vol] 206 mg/dL High 150-200 [facility] Comment on above: Performed By: #### David VAZQUEZ, 56258-0 #### [facility] ([id number]) [address], [address] [place] [address] Cholesterol in HDL [Mass/Vol] 50 mg/dL Normal >39 [facility] Comment on above: Result Comment: HDL <40 mg/dL - High Risk HDL > or = 40mg/dL- Desirable HDL >60 mg/dL - Negative Risk Performed By: #### David VAZQUEZ, 92023-3 #### [facility] ([id number]) [address], [address] [place] [address] Cholesterol in LDL [Mass/Vol] 91 mg/dL Normal <130 [facility] Comment on above: Result Comment: LDL <100 mg/dL - Desirable LDL >160 mg/dL - High Risk Performed By: #### David VAZQUEZ, 18436-0 #### [facility] ([id number]) [address], [address] [place] [address] Cholesterol in VLDL [Mass/Vol] 65 mg/dL High 0-30 [facility] Comment on above: Performed By: #### C TAYLOR, 04947-4 #### [facility] ([id number]) [address], [address] [place] [address] CHOLESTEROL:HDL 4.1 Normal 1.0-5.0 [facility] Comment on above: Performed By: #### David VAZQUEZ, 75136-5 #### [facility] ([id number]) [address], [address] [place] [address] Triglyceride [Mass/Vol] 326 mg/dL High 27-150 [facility] Comment on above: Performed By: #### David VAZQUEZ, 39013-8 #### [facility] ([id number]) [address], [address] [place] [address] ALBUMINon 12-17-2023 Albumin [Mass/Vol] 3.9 g/dL Normal 3.2-5.3 [facility] Comment on above: Performed By: #### B TAYLOR, CBC, 40056-8, 2777-1, 89390-5, 2730-8, 1750- #### [facility] ([id number]) [address], [address] [place] [address] #### 84156-9 #### [facility] ([id number]) [address] [place] [address], [place] [address] BASIC METABOLIC PANLon 12-16 Anion gap [Moles/Vol] 11 mmol/L Normal 5-15 [facility] Comment on above: Performed By: #### B MP, CBC, 14456-7, 2777-1, 83464-0, 2730-8, 1750-7 #### [facility] ([id number]) [address], [address] [place] [address] #### 20042-4 #### [facility] ([id number]) [address] [place] [address] Calcium [Mass/Vol] 9.1 mg/dL Normal 8.5-10.5 [facility] Comment on above: Performed By: #### B MP, CBC, 51616-9, 2777-1, 59143-2, 1-8, 175-7 #### [facility] ([id number]) [address], [address] [place] [address] #### 15503-6 #### [facility] ([id number]) [address] [place] [address] Chloride [Moles/Vol] 103 mmol/L Normal 98-109 [facility] Comment on above: Performed By: #### B MP, CBC, 98675-3, 7-1, 28677-7, 2730-8, 1750-7 #### [facility] ([id number]) [address] [place] [address], [address] [place] [address] #### 27017-5 #### [facility] ([id number]) [address] [place] [address] CO2 [Moles/Vol] 28 mmol/L Normal 22-32 [facility] Comment on above: Performed By: #### B MP, CBC, 63229-2, 2777-1, 76607-1, 2730-8, 1750-7 #### [facility] ([id number]) [address], [address] [place] [address] #### 92601-6 #### [facility] ([id number]) [address] [place] [address] Creatinine [Mass/Vol] 0.63 mg/dL Normal 0.40-1.00 [facility] Comment on above: Result Comment: METH OD TRACEABLE TO IDMS STANDARD Performed By: #### B MP, CBC, 95872-5, 2777-1, 81009-7, 2730-8, 1750-7 #### [facility] ([id number]) [address], [address] [place] [address] #### 09681-2 #### [facility] ([id number]) [address] [place] [address] eGFR (CKD-EPI) NON-RACE DEPENDENT >90 Normal >59 [facility] Comment on above: Result Comment: Reported eGFR is based on the CKD-EPI 2020 equation that does not use a race coefficient. Performed By: #### B MP, CBC, 92561-2, 7-1, 19532-3, 2730-8, 1750- #### [facility] ([id number]) [address], [address] [place] [address] #### 34442-1 #### [facility] ([id number]) [address] [place] [address] Glucose [Mass/Vol] 166 mg/dL High 65-99 [facility] Comment on above: Performed By: #### B MP, CBC, 02701-6, 2777-1, 10961-1, 2730-8, 1750- #### [facility] ([id number]) [address], [address] [place] [address] #### 70129-1 #### [facility] ([id number]) [address] [place] [address] Potassium [Moles/Vol] 3.7 mmol/L Normal 3.5-5.0 [facility] Comment on above: Performed By: #### B MP, CBC, 27818-8, 2777-1, 61376-8, 2730-8, 1750-7 #### [facility] ([id number]) [address], [address] [place] [address] #### 52918-4 #### [facility] ([id number]) [address] [place] [address] Sodium [Moles/Vol] 142 mmol/L Normal 134-146 [facility] Comment on above: Performed By: #### B MP, CBC, 03774-7, 2777-1, 83430-5, 2731-8, 1751-7 #### [facility] ([id number]) [address] [place] [address], [address] [place] [address] #### 02129-4 #### [facility] ([id number]) [address] [place] [address] Urea nitrogen [Mass/Vol] 12 mg/dL Normal 5-27 [facility] Comment on above: Performed By: #### B MP, CBC, 43461-1, 2777-1, 27596-8, 1-8, 1750-7 #### [facility] ([id number]) [address] [place] [address], [address] [address] #### 11483-6 #### [facility] ([id number]) [address] [place] [address] COMPLETE BLOOD COUNTon 12-16 Erythrocyte distribution width (RBC) [Ratio] 13.7 % Normal 11.5-15.0 [facility] Comment on above: Performed By: #### B MP, CBC, 60790-4, 2777-1, 21216-8, 2731-8, 1751-7 #### [facility] ([id number]) [address] [place] [address], [facility] [address] [place] [address] #### 58715-3 #### [facility] ([id number]) [address] [place] [address] Hematocrit (Bld) [Volume fraction] 44.8 % Normal 35-47 [facility] Comment on above: Performed By: #### B MP, CBC, 12729-6, 2777-1, 58680-7, 2731-8, 175-7 #### [facility] ([id number]) [address], [address] [place] [address] #### 46778-8 #### [facility] ([id number]) [address] [place] [address] Hemoglobin (Bld) [Mass/Vol] 14.5 g/dL Normal 11.7-15.5 [facility] Comment on above: Performed By: #### B MP, CBC, 98426-8, 2777-1, 16619-1, 2730-8, 1750-7 #### [facility] ([id number]) [address], [address] [place] [address] #### 47540-7 #### [facility] ([id number]) [address] [place] [address] MCH (RBC) [Entitic mass] 29.1 pg Normal 27-34 [facility] Comment on above: Performed By: #### B MP, CBC, 04498-4, 2777-1, 25757-2, 2730-8, 1750-7 #### [facility] ([id number]) [address], [address] [place] [address] #### 62159-1 #### [facility] ([id number]) [address] [place] [address] MCHC (RBC) [Mass/Vol] 32.3 g/dL Normal 32-36 [facility] Comment on above: Performed By: #### B MP, CBC, 79718-9, 2777-1, 18668-5, 2730-8, 1750-7 #### [facility] ([id number]) [address], [address] [place] [address] #### 33752-8 #### [facility] ([id number]) [address] [place] [address] MCV (RBC) [Entitic vol] 90 fL Normal 80-100 [facility] Comment on above: Performed By: #### B MP, CBC, 07261-8, 2777-1, 40601-5, 2731-8, 175-7 #### [facility] ([id number]) [address], [address] [place] [address] #### 51756-2 #### [facility] ([id number]) [address] [place] [address] Platelet mean volume (Bld) [Entitic vol] 11.3 fL Normal 7-12 [facility] Comment on above: Performed By: #### B MP, CBC, 05657-7, 2777-1, 78849-0, 2730-8, 1750- #### [facility] ([id number]) [address], [address] [place] [address] #### 57202-5 #### [facility] ([id number]) [address] [place] [address] Platelets (Bld) [#/Vol] 132 10*3/uL Low 150-450 [facility] Comment on above: Performed By: #### B MP, CBC, 57116-0, 2777-1, 39264-1, 2730-8, 175-7 #### [facility] ([id number]) [address], [address] [place] [address] #### 33011-7 #### [facility] ([id number]) [address] [place] [address] RBC COUNT 4.97 X10E12/L Normal 3.80-5.20 [facility] Comment on above: Performed By: #### B MP, CBC, 73692-7, 2777-1, 55420-9, 2730-8, 175-7 #### [facility] ([id number]) [address], [address] [place] [address] #### 92630-7 #### [facility] ([id number]) [address] [place] [address] WBC (Bld) [#/Vol] 5.3 10*3/uL Normal 4.0-11.0 [facility] Comment on above: Performed By: #### B MP, CBC, 45193-9, 2777-1, 80192-1, 2730-8, 1750-7 #### [facility] ([id number]) [address], [address] [place] [address] #### 17516-6 #### [facility] ([id number]) [address] [place] [address] MAGNESIUMon 12-17-2023 Magnesium [Mass/Vol] 1.8 mg/dL Normal 1.8-2.6 [facility] Comment on above: Performed By: #### B MP, CBC, 73187-5, 2777-1, 40620-5, 2730-8, 1750- #### [facility] ([id number]) [address], [address] [place] [address] #### 02591-5 #### [facility] ([id number]) [address] [place] [address] MICROALBUMIN - ALBUMIN:CREAT ININE URINE RATIOon 12-17-2023 ALB/CREAT RATIO 190.9 mg/g creat High 0.0-30.0 [facility] Comment on above: Performed By: #### B MP, CBC, 48935-4, 2777-1, 42697-7, 2730-8, 1750-7 #### [facility] ([id number]) [address], [address] [place] [address] #### 83078-8 #### [facility] ([id number]) [address] [place] [address] Albumin DL <= 20 mg/L (U) [Mass/Vol] 44.1 mg/dL High 0.0-1.9 [facility] Comment on above: Performed By: #### B MP, CBC, 53438-5, 2777-1, 41725-1, 2731-8, 1751-7 #### [facility] ([id number]) [address] [facility], [address] [place] [address] #### 34353-7 #### [facility] ([id number]) [address] [place] [address] URINE CREAT 231.07 mg/dL Normal [facility] Comment on above: Performed By: #### B MP, CBC, 87317-6, 2777-1, 24519-0, 273-8, 175-7 #### [facility] ([id number]) [address], [address] [place] [address] #### 82410-9 #### [facility] ([id number]) [address] [place] [address] PHOSPHORUSon 12-17-2023 Phosphate [Mass/Vol] 3.0 mg/dL Normal 2.4-4.9 [facility] Comment on above: Performed By: #### B MP, CBC, 99748-2, 2777-1, 50086-8, 2731-8, 175-7 #### [facility] ([id number]) [address], [address] [place] [address] #### 63830-6 #### [facility] ([id number]) [address] [place] [address] Parathyrin.intact [Mass/Vol] on 12-17-2023 PTH INTACT 50 pg/mL Normal 12-88 [facility] Comment on above: Performed By: #### B TAYLOR, CBC, 63647-5, 2777-1, 76824-3, 1-8, 1750-7 #### [facility] ([id number]) [address], [address] [place] [address] #### 61812-2 #### [facility] ([id number]) [address] [place] [address] Tacrolimus trough (Bld) [Mas s/Vol]on 12-17-2023 Tacrolimus, B 2.9 ng/mL Low 5.0-15.0 (Trough) [facility] Comment on above: Result Comment: NOTE ADDITIONAL INFORMATION Target steady-state trough concentrations vary depending on the type of transplant, concomitant immunosuppression, clinical/institutional protocols, and time post-transplant. Results should be interpreted in conjunction with this clinical information and any physical signs/symptoms of rejection/toxicity. Testing performed by Liquid Chromatography-Tandem Mass Spectrometry (LC-MS/MS). This test was developed and its performance characteristics determined by [facility] in a manner consistent with CLIA requirements. This test has not been cleared or approved by the U.S. Food and Drug Administration. Test Performed by: [facility] [address] [place] [address] [employer] Superintendent: Buddy Ballard Ph.D.; CLIA# [id number] Performed By: #### B TAYLOR, CBC, 29570-6, 2777-1, 37934-4, 1-8, 175-7 #### [facility] ([id number]) [address], [address] [place] [address] #### 50117-4 #### [facility] ([id number]) [address] [place] [address] URINALYSISon 12-17-2023 Bilirubin Ql (U) Negative Normal NEG [facility] Comment on above: Performed By: #### MERRICK Palam #### [facility] ([id number]) [address], [address] [place] [address] BLOOD/HGB Negative Normal NEG [facility] Comment on above: Performed By: #### MERRICK Palma #### [facility] ([id number]) [address], [address] [place] [address] CA OXALATE CRYSTALS PRESENT Abnormal [facility] Comment on above: Performed By: #### MERRICK Palma #### [facility] ([id number]) [address], [address] [place] [address] Color (U) YELLOW Normal YELLOW [facility] Comment on above: Performed By: #### MERRICK Palma #### [facility] ([id number]) [address] [place] [address] Glucose Ql (U) 200 mg/dL Abnormal NEG [facility] Comment on above: Performed By: #### MERRICK Palma #### [facility] ([id number]) [address], [address] [place] [address] Ketones Ql (U) Negative Normal NEG [facility] Comment on above: Performed By: #### MERRICK Palma #### [facility] ([id number]) [address], [address] [place] [address] Leukocyte esterase Test strip Ql (U) Negative Normal NEG [facility] Comment on above: Performed By: #### MERRICK Palma #### [facility] ([id number]) [address], [address] [place] [address] MUCOUS PRESENT Abnormal NONE [facility] Comment on above: Performed By: #### JACQUI PalmaMAXIMILIAN #### [facility] ([id number]) [address] [place] [address] Nitrite Ql (U) Negative Normal NEG [facility] Comment on above: Performed By: #### Linus Macdonald JACQUIMAXIMILIAN #### [facility] ([id number]) [address] [place] [address] pH (U) 6.0 [pH] Normal 5.0-8.5 [facility] Comment on above: Performed By: #### Linus Macdonlad JACQUIMAXIMILIAN #### [facility] ([id number]) [address] [place] [address] Protein Ql (U) 200 mg/dL Abnormal NEG [facility] Comment on above: Performed By: #### Linus Macdonald JACQUIMAXIMILIAN #### [facility] ([id number]) [address], [address] [place] [address] R.B.CELLS <1 Normal 0-5 [facility] Comment on above: Performed By: #### Linus Macdonald JACQUIMAXIMILIAN #### [facility] ([id number]) [address], [address] [place] [address] Specific gravity (U) [Rel density] 1.034 Normal 1.003-1.035 [facility] Comment on above: Performed By: #### Linus Macdonald JACQUIMAXIMILIAN #### [facility] ([id number]) [address], [address] [place] [address] SQUAMOUS EPITHELIUM <1 Normal 0-5 [facility] Comment on above: Performed By: #### Linus Macdonald JACQUIMAXIMILIAN #### [facility] ([id number]) [address], [address] [place] [address] TURBIDITY HAZY Abnormal CLEAR [facility] Comment on above: Performed By: #### Linus Macdonald JACQUIMAXIMILIAN #### [facility] ([id number]) [address] [place] [address] Urobilinogen (U) [Mass/Vol] mg/dL Normal <1.1 [facility] Comment on above: Performed By: #### Linus Macdonald, MERRICK #### [facility] ([id number]) [address] [place] [address] W.B.CELLS 4 /hpf Normal 0-5 [facility] Comment on above: Performed By: #### Linus Macdonald, MERRICK #### [facility] ([id number]) [address] [place] [address] Vitamin D+Metabolites [Mass/ Vol]on 12-17-2023 VITAMIN D 25 HYD TOT 23.6 ng/mL Low 30-100 [facility] Comment on above: Result Comment: Vitamin D status 25 [place] Vitamin D Deficiency <20 ng/mL Insufficiency 20-29 ng/mL Sufficiency 30-100 ng/mL Toxicity >100 ng/mL NOTE: A pediatric reference range has not been established by the coil wrapper of this kit. The [place] [employer] recommends a Vitamin D level of = or >20ng/mL in infants and children. Performed By: #### B MP, CBC, 19264-0, 2777-1, 16779-9, 2731-8, 1751-7 #### [facility] ([id number]) [address], [address] [place] [address] #### [id number] #### [facility] ([id number]) [address] [place] [address], [place] [address] Glucose Glucometer (BldC) [M ass/Vol]on 07-14-2023 Glucose [Mass/Vol] 142 mg/dL High 65-99 [facility] A1C HEMOGLOBINon 05-13-2023 HbA1c (Bld) [Mass fraction] 8.4 % RF Code Other Glucose - FINGER STICKon Glucose [Mass/Vol] 167 mg/dL RF Code Other HbA1c (Bld) [Mass fraction]o n 05-13-2023 A1C HEMOGLOBIN [employer] Other A1C HEMOGLOBINon 01-21-2023 HbA1c (Bld) [Mass fraction] 8.1 % RF Code Other Glucose - FINGER STICKon Glucose [Mass/Vol] 117 mg/dL RF Code Other HbA1c (Bld) [Mass fraction]o n 01-21-2023 A1C HEMOGLOBIN [employer] Other POINT OF CARE GLUCOSEon 09-13 Glucose [Mass/Vol] 185 mg/dL Critically high 74-106 [facility] Comment on above: Performed By: #### P OCGLUC #### [facility] [address] [address] [address] Payam Frazier XR hand RT min 3V*on 023 XR hand RT min 3V* [facility] RF Code Other XR hand RT min 3V* [facility] RF Code Other XR hand RT min 3V* [address] [place] [address] RF Code Other XR hand RT min 3V* [place] [address] RF Code Other XR hand RT min 3V* XRay Report RF Code Other XR hand RT min 3V* Signed RF Code Other XR hand RT min 3V* Patient: Lisy Solis MR#: [id number] RF Code Other XR hand RT min 3V* 3326 RF Code Other XR hand RT min 3V* : 1955 Acct:[id number] RF Code Other XR hand RT min 3V* Age/Sex: 66 / F ADM Date: 07/22/22 RF Code Other XR hand RT min 3V* Loc: SOX Room: Type: [facility] RF Code Other XR hand RT min 3V* Attending Dr: Sara Adhikari MD RF Code Other XR hand RT min 3V* Copies to: Sara Adhikari MD RF Code Other XR hand RT min 3V* Ordering Provider: Sara Adhikari MD RF Code Other XR hand RT min 3V* Date of Service: 07/22/22 RF Code Other XR hand RT min 3V* XR/XR hand RT min 3V*: PAIN RF Code Other XR hand RT min 3V* 4 viewsright hand plain film RF Code Other XR hand RT min 3V* COMPARISON:08/01/19 RF Code Other XR hand RT min 3V* HISTORY:Right hand pain. Mass in the fourth digit RF Code Other XR hand RT min 3V* Moderate interphalangeal degeneration. No bony lesion. Adequate bony alignment. No fracture. No soft RF Code Other XR hand RT min 3V* tissue calcification. RF Code Other XR hand RT min 3V* XR/XR hand RT min 3V* RF Code Other XR hand RT min 3V* IMPRESSION:Similar degenerative change. RF Code Other XR hand RT min 3V* Impression dictated by: Roberto Pritchard M.D.07/22/2022 4:26 PM [place] [employer] Other XR hand RT min 3V* Dictation Location: [facility] [place] [employer] Other XR hand RT min 3V* Transcribed By: ZEHRA 07/22/22 1626 [place] [employer] Other XR hand RT min 3V* Dictated By: Roberto Pritchard DO 07/22/22 [facility]5 [place] [employer] Other XR hand RT min 3V* Signed By: RF Code Other XR hand RT min 3V* 07/22/[address] [place] [address] [employer] Other A1C HEMOGLOBINon 07-14-2022 HbA1c (Bld) [Mass fraction] 7.9 % RF Code Other Glucose - FINGER STICKon Glucose [Mass/Vol] 164 mg/dL [place] [employer] Other HbA1c (Bld) [Mass fraction]o n 07-14-2022 A1C HEMOGLOBIN [facility] [employer] Other A1C HEMOGLOBINon 03-11-2022 HbA1c (Bld) [Mass fraction] 8.0 % RF Code Other Albumin [Mass/volume] in Ser um or PlasmaOrdered By: Tondra Raghavendraus on 03-11-2022 Albumin [Mass/Vol] 3.8 g/dL 3.2-5.5 [facility] Bilirubin.total [Mass/volume ] in Serum or PlasmaOrdered By: Tondra Mapus on 03-11-2022 Bilirubin [Mass/Vol] 0.5 mg/dL 0.3-1.2 [facility] Calcium [Mass/volume] in Ser um or PlasmaOrdered By: Tondra Mapus on 03-11-2022 Calcium [Mass/Vol] 9.2 mg/dL 8.2-10.2 [facility] Carbon dioxide, total [Moles /volume] in Serum or PlasmaOrdered By: Airam Thomas on 03-11-2022 CO2 [Moles/Vol] 24.7 mmol/L 22.0-30.0 [facility] Comprehensive Metabolic Pane henry 03-11-2022 Albumin [Mass/Vol] 3.830666 g/dL Normal 3.2-5.5 g/dL N [facility] [employer] Other ALT [Catalytic activity/Vol] 23 U/L Normal 10-60 U/L RF Code Other Bilirubin [Mass/Vol] 0.5695354 mg/dL Normal 0.3- 1.2 mg/dL RF Code Other Calcium [Mass/Vol] 9.7805643 mg/dL Normal 8.2-10 .2 mg/dL RF Code Other CO2 [Moles/Vol] 24.64143389 mmol/L Normal 22.0-3 0.0 mmol/L RF Code Other Creatinine [Mass/Vol] 0.89678675 mg/dL Normal 0. 44-1.03 mg/dL RF Code Other Potassium [Moles/Vol] 4.15029259 mmol/L Normal 3 .5-5.1 mmol/L RF Code Other Protein [Mass/Vol] 6.308469 g/dL Normal 6.1-7.9 g/dL N [employer] Other Comprehensive Metabolic Panel > 60 RF Code Other Comprehensive Metabolic Panel 2.5 g/dL RF Code Other Comprehensive Metabolic Pane lOrdered By: Airam Thomas on 03-11-2022 Albumin/Globulin [Mass ratio] 1.5 {ratio} [facility] ALP [Catalytic activity/Vol] 102 U/L 32-92 [facility] AST [Catalytic activity/Vol] 20 U/L 10-42 [facility] Chloride [Moles/Vol] 102 mmol/L 95-114 [facility] Glucose [Mass/Vol] 138 mg/dL 70-100 [facility] Comment on above: ADA recommended refe rence rangeRandom Glucose Reference Range is dependent on time and content of last meal. Glucose of more than 200 mg/dL in a nonstressed, ambulatory subject supports the diagnosis of Diabetes Mellitus. Sodium [Moles/Vol] 139 mmol/L 136-146 [facility] Urea nitrogen [Mass/Vol] 13 mg/dL 9-23 [facility] Creatinine and Glomerular fi ltration rate.predicted panel (S/P/Bld)Ordered By: Airam Thomas on 03-11-2022 Creatinine [Mass/Vol] 0.60 mg/dL 0.44-1.03 [facility] Estimated glomerular filtrat ion rate (GFR) non- AmericanOrdered By: Airam Thomas on 03-11-2022 GFR/1.73 sq M.predicted among non-blacks MDRD (S/P/Bld) [Vol rate/Area] > 60 mL/Min [facility] Globulin Calc (S) [Mass/Vol] Ordered By: Airam Thomas on 03-11-2022 Globulin (S) [Mass/Vol] 2.5 g/dL F [facility] Glucose - FINGER STICKon Glucose [Mass/Vol] 158 mg/dL RF Code Other HbA1c (Bld) [Mass fraction]o n 03-11-2022 A1C HEMOGLOBIN [facility] [employer] Other No Panel InformationOrdered By: Airam Thomas on 03-11-2022 Estimated GFR () > 60 mL/Min [facility] Comment on above: GFR estimated refere nce range: According to KDOQI guidelines, <60 ml/min/1.73m2 is sufficient to diagnose a patient with chronic kidney disease. Pharmacy Creatinine Clearance (Chem N/A [facility] Potassium [Moles/volume] in Serum or PlasmaOrdered By: Airam Thomas on 03-11-2022 Potassium [Moles/Vol] 4.1 mmol/L 3.5-5.1 [facility] Protein [Mass/volume] in Ser um or PlasmaOrdered By: Airam Thomas on 03-11-2022 Protein [Mass/Vol] 6.3 g/dL 6.1-7.9 [facility] Serum or plasma alanine ramsey otransferase measurement without P-5'-P (enzymatic activiOrdered By: Airam Thomas on 03-11-2022 ALT No additional P-5'-P [Catalytic activity/Vol] 23 U/L 10-60 [facility] Serum or plasma anion gap de terminationOrdered By: Airam Thomas on 03-11-2022 Anion gap [Moles/Vol] 16.4 mmol/L 6.0-15.0 [facility] POINT OF CARE GLUCOSEon 12-13 Glucose [Mass/Vol] 148 mg/dL Critically high 74-106 [facility] Comment on above: Performed By: #### P OCGLUC #### [facility] [address] [address] [address] Payam Frazier A1C HEMOGLOBINon 12-04-2021 HbA1c (Bld) [Mass fraction] 8.4 % RF Code Other Glucose - FINGER STICKon Glucose [Mass/Vol] 101 mg/dL RF Code Other HbA1c (Bld) [Mass fraction]o n 12-04-2021 A1C HEMOGLOBIN [employer] Other A1C HEMOGLOBINon 08-05-2021 HbA1c (Bld) [Mass fraction] 7.9 % RF Code Other Glucose - FINGER STICKon Glucose [Mass/Vol] 158 mg/dL RF Code Other HbA1c (Bld) [Mass fraction]o n 08-05-2021 A1C HEMOGLOBIN [employer] Other Vital Signs Date Time Vital Sign Value Performing Clinician Facility 04-13-2024 10:42-0400 Body height 167.6 cm Carrie Howard APRN-FORMULATION SCIENTIST Work Phone: [facility] [employer] [facility] 04-13-2024 10:42-0400 Body mass index (BMI) [Ratio] 33.85 kg/m2 Carrie Howard APRN-FORMULATION SCIENTIST Work Phone: [facility] [employer] [facility] 04-13-2024 10:42-0400 Body temperature 98.1 [degF] Carrie Howard PROTECTION OFFICER-FORMULATION SCIENTIST Work Phone: [facility] [employer] [facility] 04-13-2024 10:42-0400 Body weight 95.12 kg Carrie Howard PROTECTION OFFICER-FORMULATION SCIENTIST Work Phone: [facility] 04-13-2024 10:42-0400 Diastolic blood pressure 78 mm[Hg] Carrie Howard PROTECTION OFFICER-FORMULATION SCIENTIST Work Phone: [facility] [employer] [facility] 04-13-2024 10:42-0400 Heart rate 64 /min Carrie Howard APRN-FORMULATION SCIENTIST Work Phone: [facility] [employer] [facility] 04-13-2024 10:42-0400 Respiratory rate 18 /min Carrie Howard APRN-FORMULATION SCIENTIST Work Phone: [facility] [employer] [facility] 04-13-2024 10:42-0400 SaO2% (BldA) [Mass fraction] 96 % Carrie Howard APRN-FORMULATION SCIENTIST Work Phone: [facility] 04-13-2024 10:42-0400 Systolic blood pressure 152 mm[Hg] Carrie Howard PROTECTION OFFICER-FORMULATION SCIENTIST Work Phone: [facility] 02-23-2024 10:21-0400 Diastolic blood pressure 71 mm[Hg] [facility] 02-23-2024 10:21-0400 Systolic blood pressure 139 mm[Hg] [facility] 02-23-2024 10:13-0400 Body height 162.56 cm [facility] 02-23-2024 10:13-0400 Body mass index (BMI) [Ratio] 36.4 kg/m2 [facility] 02-23-2024 10:13-0400 Body weight 96.3 kg [facility] 02-23-2024 10:13-0400 Heart rate 68 /min [facility] 02-23-2024 10:13-0400 Respiratory rate 18 /min [facility] 02-23-2024 10:13-0400 SaO2% (BldA) [Mass fraction] 98 % [facility] 10-04-2023 10:32-0400 Body height 162.56 cm [facility] 10-04-2023 10:32-0400 Body mass index (BMI) [Ratio] 36.6 kg/m2 [facility] 10-04-2023 10:32-0400 Body weight 96.61 kg [facility] 10-04-2023 10:32-0400 Diastolic blood pressure 80 mm[Hg] [facility] 10-04-2023 10:32-0400 Heart rate 60 /min [facility] 10-04-2023 10:32-0400 Respiratory rate 18 /min [facility] 10-04-2023 10:32-0400 SaO2% (BldA) [Mass fraction] 97 % [facility] 10-04-2023 10:32-0400 Systolic blood pressure 133 mm[Hg] [facility] 05-13-2023 10:15-0500 Body height 162.56 cm Tondra Mapus Other [facility] 05-13-2023 10:15-0500 Body mass index (BMI) [Ratio] 37.95 kg/m2 Tondra Mapus Other [employer] [facility] [employer] Other 05-13-2023 10:15-0500 Body weight 100.29 kg Tondra Mapus Other [employer] Other 05-13-2023 10:15-0500 Body weight 100.28 kg [facility] 05-13-2023 10:15-0500 Diastolic blood pressure 77 mm[Hg] Tondra Mapus Other [facility] 05-13-2023 10:15-0500 Respiratory rate 18 /min Tondra Mapus Other [employer] Other 05-13-2023 10:15-0500 SaO2% (BldA) [Mass fraction] 95 % Tondra Mapus Other [employer] Other 05-13-2023 10:15-0500 Systolic blood pressure 147 mm[Hg] Tondra Mapus Other [facility] 01-21-2023 14:45-0400 Body height 162.56 cm Tondra Mapus Other [employer] Other 01-21-2023 14:45-0400 Body mass index (BMI) [Ratio] 37.35 kg/m2 Tondra Mapus Other [employer] Other 01-21-2023 14:45-0400 Body weight 98.7 kg Tondra Mapus Other [employer] Other 01-21-2023 14:45-0400 Diastolic blood pressure 80 mm[Hg] Tondra Mapus Other [employer] Other 01-21-2023 14:45-0400 Respiratory rate 18 /min Tondra Mapus Other [employer] Other 01-21-2023 14:45-0400 SaO2% (BldA) [Mass fraction] 96 % Tondra Mapus Other [employer] Other 01-21-2023 14:45-0400 Systolic blood pressure 124 mm[Hg] Tondra Mapus Other [employer] Other 07-22-2022 15:30-0500 Body height 162.56 cm Sara Adhikari Other [employer] Other 07-22-2022 15:30-0500 Body mass index (BMI) [Ratio] 38.33 kg/m2 Sara Adhikari Other [employer] Code Other 07-22-2022 15:30-0500 Body weight 101.29 kg Sara Adhikari Other [employer] Code Other 07-14-2022 12:00-0500 Body height 162.56 cm Tondra Mapus Other [employer] Other 07-14-2022 12:00-0500 Body mass index (BMI) [Ratio] 38.33 kg/m2 Tondra Mapus Other [employer] Other 07-14-2022 12:00-0500 Body weight 101.29 kg Tondra Mapus Other [employer] Other 07-14-2022 12:00-0500 Diastolic blood pressure 76 mm[Hg] Tondra Mapus Other [employer] Other 07-14-2022 12:00-0500 Respiratory rate 18 /min Tondra Mapus Other [employer] Other 07-14-2022 12:00-0500 SaO2% (BldA) [Mass fraction] 98 % Tondra Mapus Other [employer] Other 07-14-2022 12:00-0500 Systolic blood pressure 144 mm[Hg] Tondra Mapus Other [employer] Other 03-11-2022 12:00-0400 Body height 162.56 cm Tondra Mapus Other [employer] Other 03-11-2022 12:00-0400 Body mass index (BMI) [Ratio] 38.93 kg/m2 Tondra Mapus Other [employer] Other 03-11-2022 12:00-0400 Body weight 102.88 kg Tondra Mapus Other [employer] Other 03-11-2022 12:00-0400 Diastolic blood pressure 67 mm[Hg] Tondra Mapus Other [employer] Other 03-11-2022 12:00-0400 Respiratory rate 18 /min Tondra Mapus Other [employer] Other 03-11-2022 12:00-0400 SaO2% (BldA) [Mass fraction] 98 % Tondra Mapus Other [employer] Other 03-11-2022 12:00-0400 Systolic blood pressure 106 mm[Hg] Tondra Mapus Other [employer] Other 12-04-2021 11:15-0400 Body height 162.56 cm Tondra Mapus Other [employer] Other 12-04-2021 11:15-0400 Body mass index (BMI) [Ratio] 38.79 kg/m2 Tondra Mapus Other [employer] Other 12-04-2021 11:15-0400 Body weight 102.51 kg Tondra Mapus Other [employer] Other 12-04-2021 11:15-0400 Diastolic blood pressure 80 mm[Hg] Tondra Mapus Other [employer] Other 12-04-2021 11:15-0400 Respiratory rate 20 /min Tondra Mapus Other [employer] Code Other 12-04-2021 11:15-0400 SaO2% (BldA) [Mass fraction] 96 % Tondra Mapus Other [employer] Other 12-04-2021 11:15-0400 Systolic blood pressure 119 mm[Hg] Tondra Mapus Other [employer] Other 08-05-2021 10:45-0500 Body height 162.56 cm Tondra Mapus Other [employer] Other 08-05-2021 10:45-0500 Body mass index (BMI) [Ratio] 39.3 kg/m2 Tondra Mapus Other [employer] Other 08-05-2021 10:45-0500 Body weight 103.87 kg Tondra Mapus Other [employer] Other 08-05-2021 10:45-0500 Diastolic blood pressure 81 mm[Hg] Tondra Mapus Other [employer] Code Other 08-05-2021 10:45-0500 Respiratory rate 20 /min Tondra Mapus Other [employer] Code Other 08-05-2021 10:45-0500 SaO2% (BldA) [Mass fraction] 95 % Airam Thomas Other [employer] Code Other 08-05-2021 10:45-0500 Systolic blood pressure 124 mm[Hg] Airam Thomas Other [employer] Code Other Encounters Encounter Date Encounter Type Care Provider Facility Start: 05-05-2024 End: 05-08-2024 [facility] Comment on above: Diabetic polyneuropa thy associated with type 2 diabetes mellitus ([facility]) Start: 04-18-2024 End: 04-21-2024 Telephone encounter Randall Daomn [facility] Start: 04-17-2024 End: 04-17-2024 Orders Only Carrie L Anita PROTECTION OFFICER-FORMULATION SCIENTIST Work Phone: [facility] Start: 04-13-2024 End: 04-13-2024 ambulatory [facility] Start: 04-13-2024 End: 04-13-2024 Office outpatient visit 25 minutes Carrie L Anita PROTECTION OFFICER-FORMULATION SCIENTIST Work Phone: [facility] Comment on above: Essential hypertensi on (Primary Dx); Immunosuppression ([facility]); Obesity, morbid ([facility]); Diabetic polyneuropathy associated with type 2 diabetes mellitus ([facility]); Mixed hyperlipidemia; Influenza vaccination administered at current visit; Insomnia, unspecified type Start: 04-13-2024 End: 04-13-2024 ambulatory [facility] Start: 04-10-2024 End: 04-17-2024 Refwicho Warren [facility] Comment on above: Diabetic polyneuropa thy associated with type 2 diabetes mellitus ([facility]) Start: 03-02-2024 End: 03-14-2024 Refill Carrie Tomi Anita PROTECTION OFFICER-FORMULATION SCIENTIST Work Phone: [facility] Start: 02-23-2024 End: 02-23-2024 ambulatory [facility] Work Phone: Start: 02-23-2024 End: 02-23-2024 Patient encounter procedure [facility] Work Phone: Start: 12-17-2023 End: 12-17-2023 ambulatory MARYCRUZ GUZMAN [facility] Start: 10-04-2023 End: 10-04-2023 ambulatory [facility] Work Phone: Start: 10-04-2023 End: 10-04-2023 Patient encounter procedure [facility] Work Phone: Start: 09-27-2023 End: 09-28-2023 ambulatory Tra Last MD Facility:[facility] Start: 08-12-2023 Refill Marycruz Guzman PROTECTION OFFICER-HORTICULTURE INSTRUCTOR Work Phone: [facility] Comment on above: Anemia, unspecified Start: 07-14-2023 End: 07-14-2023 Evaluation and management of inpatient [facility] Start: 05-13-2023 (DM) Diabetes Elfegodra William [facility] Start: 05-13-2023 End: 05-14-2023 ambulatory NON STAFF RF Code Other Start: 05-13-2023 End: 05-13-2023 Discharged Rec[facility]ring [facility] Work Phone: Start: 05-13-2023 End: 05-13-2023 Patient encounter procedure [facility] Work Phone: Start: 03-03-2023 End: 03-03-2023 ambulatory Tondra Mapus Other RF Code Other Start: 03-03-2023 Telephone encounter Tondra Mapus [facility] Start: 01-26-2023 End: 01-26-2023 ambulatory Tondra Mapus Other RF Code Other Start: 01-26-2023 Telephone encounter Tondra Mapus [facility] Start: 01-22-2023 End: 01-22-2023 ambulatory Tondra Mapus Other RF Code Other Start: 01-22-2023 Telephone encounter Tondra Mapus [facility] Start: 01-21-2023 (DM) Diabetes Tondra Mapus [facility] Start: 01-21-2023 End: 01-21-2023 ambulatory Tondra Mapus Other RF Code Other Start: 10-23-2022 End: 10-24-2022 ambulatory NARENDRANATH LAKSHMIPATHY . Facility:[facility] Start: 10-13-2022 ambulatory NARENDRANATH LAKSHMIPATHY . Facility:[facility] Start: 10-06-2022 End: 10-06-2022 ambulatory NARENDRANATH LAKSHMIPATHY . Facility:[facility] Start: 09-29-2022 End: 09-30-2022 ambulatory NARENDRANATH LAKSHMIPATHY . Facility:[facility] Start: 09-24-2022 End: 09-25-[address] MARYCRUZ GUZMAN Facility:[facility] Start: 07-22-2022 End: 07-22-2022 ambulatory Sara Adhikari Other RF Code Other Start: 07-22-2022 Office outpatient vi sit 25 minutes Sara Adhikari [facility] Start: 07-14-2022 (DM) Diabetes Tondra Mapus [facility] Start: 07-14-2022 End: 07-14-2022 ambulatory Tondra Mapus Other RF Code Other Start: 06-25-2022 End: 06-26-[address] OSIRIS KELLEY . Facility:[facility] Start: 05-18-2022 End: 05-18-2022 ambulatory Tondra Mapus Other RF Code Other Start: 05-18-2022 Telephone encounter Tondra Mapus [facility] Start: 05-04-2022 End: 05-04-2022 ambulatory Tondra Mapus Other RF Code Other Start: 05-04-2022 Telephone encounter Tondra Mapus [facility] Start: 04-27-2022 End: 04-27-2022 ambulatory Tondra Mapus Other RF Code Other Start: 04-27-2022 Telephone encounter Tondra Mapus [facility] Start: 03-11-2022 (DM) Diabetes Tondra Mapus [facility] Start: 03-11-2022 End: 03-11-2022 ambulatory Tondra Mapus Other RF Code Other Start: 03-11-2022 Telephone encounter Tondra Mapus [facility] Start: 01-22-2022 End: 01-23-[address] OSIRIS KELLEY . Facility:[facility] Start: 01-06-2022 End: 01-06-[address] OSIRIS KELLEY . Facility:[facility] Start: 12-04-2021 (DM) Diabetes Tondra Mapus [facility] Start: 12-04-2021 End: 12-04-2021 ambulatory Tondra Mapus Other RF Code Other Start: 11-20-2021 End: 11-21-[address] OSIRIS KELLEY . Facility: Start: 08-05-2021 (DM) Diabetes Tondra Mapus [facility] Start: 08-05-2021 End: 08-05-2021 ambulatory Tondra Mapus Other RF Code Other Start: 08-05-2021 Telephone encounter Tondra Mapus [facility] Start: 07-16-2021 End: 07-16-2021 ambulatory Tondra Mapus Other RF Code Other Start: 07-16-2021 Telephone encounter Tondra Mapus [facility] Start: 07-15-2021 End: 07-15-2021 ambulatory Tondra Mapus Other RF Code Other Start: 07-15-2021 Telephone encounter Tondra Mapus [facility] Procedures Date Procedure Procedure Detail Performing Clinician Start: 04-13-2024 Adult depression screening assessment Carrie Howard PROTECTION OFFICER-FORMULATION SCIENTIST Work Phone: Start: 04-21-2023 Mammography Marycruz Guzman PROTECTION OFFICER-HORTICULTURE INSTRUCTOR Work Phone: Start: 04-06-2023 Adult depression screening assessment Marycruz Guzman PROTECTION OFFICER-HORTICULTURE INSTRUCTOR Work Phone: Start: 04-09-2022 Diabetic retinal eye exam Marycruz Guzman PROTECTION OFFICER-HORTICULTURE INSTRUCTOR Work Phone: Start: 04-10-2013 History of renal transplant History of kidney transplant Marycruz Guzman PROTECTION OFFICER-HORTICULTURE INSTRUCTOR Work Phone: History of renal transplant Erica Raghavendraus Other History of renal transplant History of transplantation, renal Plan of Treatment Date Care Activity Detail Author Start: 04-13-2025 Adult BMI Screening Adult BMI Screen ing [employer] Start: 04-13-2025 Depression Screening [facility] Start: 04-13-2025 Fall Risk Screening Fall Risk Screen ing [facility] Start: 04-13-2025 Tobacco Screening Tobacco Screening [facility] Start: 10-05-2024 End: 10-05-2024 Patient encounter procedure 10/05/2024 10:40 AM EDT Office Visit [facility] [address] [place] [address] Carrie Howard, PROTECTION OFFICER-FORMULATION SCIENTIST [address] [place] [address] [facility] Internal Medicine - Family Medicine Start: 07-14-2024 Adult BMI Screening Adult BMI Screen ing [facility] Start: 07-14-2024 Tobacco Screening Tobacco Screening [facility] Start: 05-04-2024 End: 05-04-2024 Patient encounter procedure 05/04/2024 3:40 PM EST Office Visit [facility] Internal Medicine - Family Medicine [address] [place] [address] Carrie Howard, PROTECTION OFFICER-FORMULATION SCIENTIST [address] [place] [address] [facility] Internal Medicine - Family Medicine Start: 04-21-2024 Screening for malign ant neoplasm of breast Mammogram [facility] Start: 04-13-2024 End: 04-13-2025 Lipid 1996 panel - Serum or Plasma Lipid profile Lab Routine Mixed hyperlipidemia Expected: 04/13/2024 (Approximate), Expires: 04/13/2025 [facility] Comment on above: Expected: 04/13/2024 (Approximate), Expires: 04/13/2025 Start: 04-06-2024 Depression Screening Depression Scre ening [facility] Start: 04-06-2024 Fall Risk Screening Fall Risk Screen ing [facility] Start: 02-13-2024 Influenza vaccination Influenza Vacc ine [facility] Start: 11-23-2023 End: 11-23-2023 Patient encounter procedure 11/23/2023 9:40 AM EDT Office Visit [facility] Internal Medicine - Family Medicine [address] [place] [address] [facility] Internal Medicine - Family Medicine Start: 11-04-2023 Medicare Annual Well ness Visit Medicare Annual Wellness Visit [facility] Start: 04-09-2023 Glaucoma screening Diabetic Op hthalmology Exam [facility] Start: 07-16-2014 DTaP,Tdap and Td Vaccines (2 - Tdap) DTaP,Tdap and Td Vaccines (2 - Tdap) [facility] Start: 2004 Administration of varicella zoster vaccine Zoster (Shingles) Vaccine (1 of 2) [facility] Start: 1973 Administration of varicella zoster vaccine Zoster (Shingles) Vaccine (1 of 2) [facility] Start: 1972 Adult BMI Follow Up Plan Adult BMI F ollow Up Plan [facility] Start: 1972 Diabetic foot examination Diabetic Foot Exam [facility] Comprehensive metabo lic 1999 panel - Serum or Plasma [facility] End: 04-13-2025 Comprehensive metabolic 2000 panel - Serum or Plasma Comprehensive metabolic panel Lab Routine Essential hypertension 1 Occurrences starting 04/13/2024 until 04/13/2025 [facility] Work Phone: Comment on above: 1 Occurrences starti ng 04/13/2024 until 04/13/2025 [facility] Immunizations Immunization Date Immunization Notes Care Provider Fa cility 04-13-2024 Seasonal trivalent influenza vaccine, adjuvanted, preservative free Carrie Howard PROTECTION OFFICER-FORMULATION SCIENTIST Work Phone: [facility] 04-13-2024 Immunization, In Clinic,; Translations: [Drug or medicament (substance)] Carrie Howard PROTECTION OFFICER-FORMULATION SCIENTIST Work Phone: [facility] 04-06-2023 Influenza Vaccine, Quadrivalent, Adjuvanted Marycruz Gómez PROTECTION OFFICER-HORTICULTURE INSTRUCTOR Work Phone: [facility] 04-06-2023 influenza virus vaccine, unspecified formulation Carrie Howard PROTECTION OFFICER-FORMULATION SCIENTIST Work Phone: [facility] 10-07-2020 COVID-19, mRNA, LNP- S, PF, 100mcg/0.5mL Dose Marycruz Guzman PROTECTION OFFICER-HORTICULTURE INSTRUCTOR Work Phone: [facility] 09-06-2020 COVID-19 Vaccine Moderna - Documentation Purposes Only Tondra Mapus Other [facility] 08-09-2020 COVID-19 Vaccine Moderna - Documentation Purposes Only Airam Thomas Other [facility] 04-24-2020 influenza virus vaccine, unspecified formulation [facility] 04-24-2020 Influenza, High-dose , Quadrivalent Marycruz Guzman PROTECTION OFFICER-HORTICULTURE INSTRUCTOR Work Phone: [facility] 04-24-2020 influenza, high dose seasonal, preservative-free Tondra Mabryus Other [facility] [employer] Other 05-28-2017 Influenza, injectabl e, Madin Iris Canine Kidney, preservative free, quadrivalent Marycruz Guzman PROTECTION OFFICER-HORTICULTURE INSTRUCTOR Work Phone: [facility] 04-10-2016 influenza, seasonal, injectable, preservative free Marycruz Guzman PROTECTION OFFICER-HORTICULTURE INSTRUCTOR Work Phone: [facility] 09-24-2015 pneumococcal conjuga te vaccine, 13 valent Marycruz Guzman PROTECTION OFFICER-HORTICULTURE INSTRUCTOR Work Phone: [facility] 04-14-2015 influenza, seasonal, injectable Marycruz Guzman PROTECTION OFFICER-HORTICULTURE INSTRUCTOR Work Phone: [facility] 04-19-2013 pneumococcal polysaccharide vaccine, 23 valent Marycruz Guzman PROTECTION OFFICER-HORTICULTURE INSTRUCTOR Work Phone: [facility] 02-10-2012 pneumococcal polysaccharide vaccine, 23 valent Marycruz Guzman PROTECTION OFFICER-HORTICULTURE INSTRUCTOR Work Phone: [facility] 07-16-2004 DTaP-Haemophilus influenzae type b conjugate vaccine Marycruz Guzman PROTECTION OFFICER-HORTICULTURE INSTRUCTOR Work Phone: [facility] Payers Date Payer Category Payer Unknown 2020 Medicare [facility] MEDICARE ANTH MEDICARE ADVANTAGE [id number] 2020[facility] [phone] [address] [place] [address] [id number] 2020 Medicare HMO [employer] MEDICARE [id number] 2017 Self-pay [id number] 1959 Medicare [id number] 1954 Unknown [id number] 2.16.840.1.580191.3.579. 2.593 1954 Unknown [id number] 2.16.840.1.868465.3.579. 2.593 1954 Unknown [id number] 2.16.840.1.052769.3.579. 2.593 1954 Unknown [id number] 2.16.840.1.992882.3.579. 2.593 1954 Unknown [id number] 2.16.840.1.257612.3.579. 2.593 1954 Unknown [id number] 2.16.840.1.067924.3.579. 2.593 1954 Unknown [id number] 2.16.840.1.963868.3.579. 2.593 1954 Unknown [id number] 2.16.840.1.499620.3.579. 2.593 1954 Unknown [id number] 2.16.840.1.699131.3.579. 2.593 1954 Unknown [id number] 2.16.840.1.021335.3.579. 2.196 1954 Unknown [id number] 2.16.840.1.500201.3.579. 2.1286 1954 Unknown [id number] 2.16.840.1.855050.3.579. 2.1286 1954 Unknown [id number] 2.16.840.1.267864.3.579. 2.1286 1954 Unknown [id number] 2.16.840.1.923791.3.579. 2.1286 Private Health Insurance [facility] [id number] Unknown [id number] [id number]. 2.531 Social History Date Type Detail Facility Unknown if ever smoked RF Code Other Start: 11-03-2022 End: 04-13-2024 [facility] Start: 08-21-2019 End: 07-14-2023 Tobacco smoking status NHIS Never smoked tobacco (finding) [facility] Start: 1955 Sex Assigned At Female [facility] Start: 07-14-2023 Tobacco use and exposure Smokeless tobacco non-user [facility] Start: 07-15-2023 End: 04-13-2024 Alcohol intake Lifetime non-drinker (finding) [facility] Start: 11-03-2022 End: 04-13-2024 History of Social function [facility] Do you belong to any clubs or organizations such as episcopalian groups, unions, fraternal or athletic groups, or school groups? No [facility] Are you now , , , , never or living with a partner? [facility] Frequency of Alcohol Consumption Never [facility] Do you feel stress - tense, restless, nervous, or anxious, or unable to sleep at night because your mind is troubled all the time - these days [OSQ] To some extent [facility] Start: 1955 Sex Assigned At Not on file [facility] Start: 01-17-2015 Sex Female (finding) [facility] Medical Equipment Procedure Code Equipment Code Equipment Origin al Text Equipment Identifier Dates [id number], [id number] End: 04-13-2024 blood sugar diagnostic (FreeStyle Precision Harish Strips) Start: 10-04-2023 blood sugar diagnostic (FreeStyle Precision Harish Strips) Start: 10-04-2023 Clinical Notes 04-14-2020 to 05-05-2024 Telephone Encounter - SHANNON Benjamin - 05/05/2024 7:38 AM ESTTelephone Encounter - SHANNON Benjamin - 05/05/2024 7:38 AM SHANNON Cancino - 04/13/2024 10:40 AM EDT Note Date & Type Note Facility 05-05-2024 Miscellaneous Notes I wanted to re-check her BP before end of year - 20 min slot documented in this encounter [facility] 05-05-2024 Telephone encounter Note I wanted to re-check her BP before end of year - 20 min slot [facility] 04-18-2024 Miscellaneous Notes ----- Message from SHANNON Tracy sent at 04/17/2024 6:12 PM EST ----- Her 10 yr CV risk is high at 22.1%. Her triglycerides or the fatty part of her blood are very high. Her good cholesterol is at goal. Her bad cholesterol is not at goal of a diabetic, which should be <70. The rest of her labs were good except blood sugar high. She can increase her crestor to 20mg per day (take 2 tabs) and I can send in higher dose in hopes of driving her bad cholesterol closer to goal. We need to lower her CV risk as much as possible which means getting her BP and DM under better control. We will talk more about this at upcoming visit. Patient was informed documented in this encounter [facility] 04-18-2024 Telephone encounter Note ----- Message from SHANNON Tracy sent at 04/17/2024 6:12 PM EST ----- Her 10 yr CV risk is high at 22.1%. Her triglycerides or the fatty part of her blood are very high. Her good cholesterol is at goal. Her bad cholesterol is not at goal of a diabetic, which should be <70. The rest of her labs were good except blood sugar high. She can increase her crestor to 20mg per day (take 2 tabs) and I can send in higher dose in hopes of driving her bad cholesterol closer to goal. We need to lower her CV risk as much as possible which means getting her BP and DM under better control. We will talk more about this at upcoming visit. [facility] 04-18-2024 Telephone encounter Note Patient was informed [facility] 04-13-2024 History of Presen t illness Narrative [address] [place] [address] Patient: Lisy Solis Date of : 1955 Encounter Date: 04/13/2024 History of Present Illness: The patient is a 68 y.o. female, an established patient, and is here for Chief Complaint Patient presents with refill on medications . 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 Patient had a kidney transplant in 2012 for cancer in her right kidney, she has 1 of her own kidneys as well. Her last renal function labs were reviewed from her hotshot superintendent. She sees Dr. Kenny every 6 months. She uses trazodone for sleep 100 mg but lately this has not been helping and she is unable to get to sleep most nights. She is wondering if we can start clonazepam as both of her parents took this and it helped them sleep through the night. She has difficulty getting to sleep because her mind is racing. She also sees pain management who prescribes her Percocet and gabapentin for chronic pain in her back. She feels her blood pressure is increased today due to pain. Patient's sees endocrinology every 3 months in her last A1c was 7%. She takes Jardiance, mealtime insulin based on her blood sugar, carb count and 30 units, and takes long-acting insulin at 60 units. Problem List Items Addressed This Visit Cardiovascular and Mediastinum Essential hypertension - Primary Relevant Orders Comprehensive metabolic panel Digestive Obesity, morbid ([facility]) Endocrine Diabetic neuropathy ([facility]) Relevant Medications insulin degludec (TRESIBA FLEXTOUCH U-100) 100 unit/mL (3 mL) insulin pen Immune and Lymphatic Immunosuppression ([facility]) Other Insomnia Mixed hyperlipidemia Relevant Orders Lipid profile Other Visit Diagnoses Influenza vaccination administered at current visit Relevant Orders Influenza, Trivalent, Adjuvanted (Completed) Past Medical, Family, and Social History Update: The following portions of the patient's history were reviewed and updated as appropriate: allergies, current medications, past family history, past medical history, past social history, past surgical history and problem list. Past Medical History: Diagnosis Date Diabetes mellitus type 2, controlled ([facility]) Diabetic peripheral neuropathy ([facility]) History of kidney cancer 2011 Insulin dependent diabetes mellitus Past Surgical History: Procedure Laterality Date CHOLECYSTECTOMY COLONOSCOPY DIAGNOSTIC / SCREENING N/A 07/14/2023 Performed by Macario Holden DO at [facility] COLONOSCOPY W/ POLYPECTOMY 2016 HYSTERECTOMY 1985 HYSTERECTOMY NECK SURGERY plate x1 OOPHORECTOMY SHOULDER ARTHROSCOPY Left US TRANSPLANT KIDNEY RT Current Outpatient Medications Medication Sig Dispense Refill alcohol swabs pads, medicated BD Alcohol Swabs aspirin 81 mg 1 tablet Orally Once a day for 30 day(s) baclofen (LIORESAL) 10 mg tablet take 1 tablet by mouth three times a day 270 tablet 1 empagliflozin (JARDIANCE) 10 mg tablet tablet 1 tablet Orally Once a day for 30 day(s) ferrous sulfate 325 (65 FE) mg tablet TAKE 1 TABLET BY MOUTH TWICE A DAY 180 tablet 3 flash glucose scanning reader (FREESTYLE SYLVIA 14 DAY READER) misc FreeStyle Sylvia 14 Day [place] flash glucose sensor (FREESTYLE SYLVIA 14 DAY SENSOR) kit FreeStyle Sylvia 14 Day Sensor kit USE DIRECTED CHANGE EVERY 14 DAYS gabapentin (NEURONTIN) 600 mg tablet Take 1 tablet (600 mg total) by mouth in the morning and 1 tablet (600 mg total) at noon and 1 tablet (600 mg total) in the evening and 1 tablet (600 mg total) before bedtime. 360 tablet 0 mycophenolate (CELLCEPT) 250 mg capsule 4 capsules Orally BID for 90 days OZEMPIC 2 mg/dose (8 mg/3 mL) pen injector pen needle, diabetic (BD ULTRA-FINE MINI PEN NEEDLE) 31 gauge x 3/16 needle BD Ultra-Fine Mini Pen Needle 31 gauge x 3/16 rosuvastatin (CRESTOR) 10 mg tablet TAKE 1 TABLET (10 MG TOTAL) BY MOUTH IN THE MORNING 90 tablet 0 Saccharomyces boulardii (FLORASTOR) 250 mg capsule Take 1 capsule (250 mg total) by mouth Daily at 0300. 90 capsule 3 sertraline (ZOLOFT) 100 mg tablet TAKE 1 TABLET DAILY 90 tablet 1 tacrolimus (PROGRAF) 1 mg capsule Take 2 capsules (2 mg total) by mouth in the morning and 2 capsules (2 mg total) at noon and 2 capsules (2 mg total) in the evening. diclofenac sodium-menthoL 1.5-10 % combo pack Apply 1 Application topically in the morning and 1 Application at noon and 1 Application in the evening and 1 Application before bedtime. 239 mL 1 Immunization, In Clinic, Inject 0.5 mL into the appropriate muscle once for 1 dose. flu vac 65up (PF) 45 MCG(15 MCGX3)/0.5 mL Sign this order to satisfy the OSBOP Positive ID requirements for immunization orders. insulin degludec (TRESIBA FLEXTOUCH U-100) 100 unit/mL (3 mL) insulin pen Inject 60 Units under the skin nightly. oxyCODONE-acetaminophen (PERCOCET) 10-325 mg per tablet oxycodone-acetaminophen 10 mg-325 mg tablet TAKE 1 TABLET BY MOUTH TWICE DAILY NEEDED traZODone (DESYREL) 150 mg tablet Take 1 tablet (150 mg total) by mouth nightly. 90 tablet 1 No current facility-administered medications for this visit. (All medications reviewed and updated by provider since last office visit or hospitalization) Allergies: Patient has no known allergies. Tobacco History: Social History Tobacco Use Smoking Status Never Smokeless Tobacco Never (If patient a smoker, smoking cessation counseling offered) Social History: Social History Substance and Sexual Activity Alcohol Use Never Review of Systems: Review of Systems Constitutional: Negative. Negative for unexpected weight change. HENT: Negative. Eyes: Negative. Respiratory: Negative. Cardiovascular: Negative. Gastrointestinal: Negative. Endocrine: Negative. Genitourinary: Negative. Musculoskeletal: Positive for arthralgias, back pain and myalgias. Skin: Negative. Allergic/Immunologic: Negative. Neurological: Positive for numbness. Psychiatric/Behavioral: Positive for dysphoric mood (stable with current medication) and sleep disturbance. Physical Exam: BP 152/78 (BP Site: Left Arm, BP Postition: Sitting) Pulse 64 Temp 36.7 C (98.1 F) (Oral) Resp 18 Ht 167.6 cm (5' 6 ) Wt 95.1 kg (209 lb 11.2 oz) SpO2 96% BMI 33.85 kg/m Physical Exam Vitals reviewed. Constitutional: Appearance: She is obese. HENT: Head: Normocephalic and atraumatic. Eyes: Conjunctiva/sclera: Conjunctivae normal. Cardiovascular: Rate and Rhythm: Normal rate and regular rhythm. Heart sounds: Normal heart sounds. No murmur heard. Pulmonary: Effort: Pulmonary effort is normal. Breath sounds: Normal breath sounds. Abdominal: General: Bowel sounds are normal. Palpations: Abdomen is soft. Tenderness: There is no abdominal tenderness. Musculoskeletal: Right lower leg: No edema. Left lower leg: No edema. Skin: General: Skin is warm and dry. Capillary Refill: Capillary refill takes less than 2 seconds. Neurological: Mental Status: She is alert and oriented to person, place, and time. Psychiatric: Thought Content: Thought content normal. Judgment: Judgment normal. Assessment and Plan: Lisy was seen today for refill on medications. Diagnoses and all orders for this visit: Essential hypertension - Comprehensive metabolic panel; Future Immunosuppression ([facility]) Obesity, morbid ([facility]) Diabetic polyneuropathy associated with type 2 diabetes mellitus ([facility]) Mixed hyperlipidemia - Lipid profile; Future Influenza vaccination administered at current visit - Influenza, Trivalent, Adjuvanted Insomnia, unspecified type Other orders - diclofenac sodium-menthoL 1.5-10 % combo pack; Apply 1 Application topically in the morning and 1 Application at noon and 1 Application in the evening and 1 Application before bedtime. - traZODone (DESYREL) 150 mg tablet; Take 1 tablet (150 mg total) by mouth nightly. Follow-up: Patient's blood pressure is above goal today. It was recommended that she take her blood pressure 2 times per week and write it down for upcoming visit in 1 month. We will consider adding SUNNI inhibitor or ARB if blood pressure is above goal more than 50% of the time. Patient's blood pressure goal is less than 130/80. Discussed patient's anti-rejection medications for her right kidney transplant. It was recommended that she have all recommended vaccines appropriate for her age and these were written down for her to take to her pharmacy. She will receive her flu vaccine in office today. Patient is working on her obesity with G LP 1 inhibitor. She is steadily losing weight and this is helping with her A1c. Patient states the gabapentin helps with her neuropathy. We will obtain CMP and lipid today as she has not had her cholesterol checked in over a year. Her 10 year cardiovascular risk from last year is elevated at 22.9%. We will reassess her CV risk after labs today. Patient was encouraged to try dose increase of trazodone before benzodiazepine. Risk of benzodiazepines and opioids were discussed with patient especially with age. Patient is willing to try increased dose of trazodone. We will reassess at her follow-up in 1 month. SHANNON BENJAMIN APRN-CNP 04/13/24 [id number] documented in this encounter [facility] 03-02-2024 Miscellaneous Notes Comes in 05/04 need short term Patient called again asking about a partial refill. I have a note in that she no showed or canceled last 3 appts with Marycruz and due to her age, I'd like to see her and assess her risk before I prescribe or continue this medication. Please offer her a sooner appt if available. No sooner appointments available documented in this encounter [facility] 03-02-2024 Telephone encounter Note Comes in 05/04 need short term [facility] 03-02-2024 Telephone encounter Note Patient called again asking about a partial refill. [facility] 03-02-2024 Telephone encounter Note I have a note in that she no showed or canceled last 3 appts with Marycruz and due to her age, I'd like to see her and assess her risk before I prescribe or continue this medication. Please offer her a sooner appt if available. [facility] Work Phone: 03-02-2024 Telephone encounter Note No sooner appointments available [facility] 06-02-2023 Note HNO ID: [id number] Author: Alondra Boggs PA-C Service: ? Author Type: Physician Professor Of Legal Studies Type: Progress Notes Filed: 06/02/2023 4:31 PM Note Text: Per Triage: Lisy Solis is a 67 year old female that [...] reviewed during the appt Alondra Boggs PA-C [facility] 05-31-2023 Note HNO ID: [id number] Author: Alycia Red Service: ? Author Type: ? Type: Progress Notes Filed: 06/02/2023 4:31 PM Note Text: Patient name: Lisy Solis Are you being referred by a [facility] Provider or Pain Management Provider at [facility]? No If answer is YES please [...] facility where the MRI/CT/myelogram was completed: [place] [address] MRI/CT/myelogram viewable in Epic: No If not, please provide [phone] to fax in imaging reports for review. [...] and/or physical therapy was completed Injection: [place] [address] PT: [place] [address] Have you tried any other kinds of [...] where the surgery was completed: Additional Comments [phone] [facility] 05-13-2023 Evaluation note Encounter Date Diagnosis Assessment Notes Apr, Type 2 diabetes mellitus with hyperglycemia (ICD-10 - E11.65) Diabetes (type 2) material was published 1. Uncontrolled, a Type 2 diabetes with A1c of 8.4% 2. Blood glucose levels above target. According to B2Brev 2 cgm download 04/30/23-: Avg glucose 167. [...] 6. Prescriptions: araseli Sepulveda novolog sent to [facility]. 7. Prescriptions will not be filled [...] high blood pressure material was published Apr, nursing home current use of insulin (ICD-10 - Z79.4) [...] loss efforts Apr, Albuminuria (ICD-10 - R80.9) 9/23 m/a cr ratio 88. Reviewed importance of glucose/bp control to prevent further nephropathy RF Code Other 08-11-2023 Evaluation note* Encounter Date Diagnosis Assessment Notes Treatment Notes Treatment Clinical Notes Jan, Type 2 diabetes mellitus with hyperglycemia (ICD-10 - E11.65) RF Code Other 08-10-2023 Evaluation note* Encounter Date Diagnosis Assessment Notes Treatment Notes Treatment Clinical Notes Jan, Type 2 diabetes mellitus with hyperglycemia (ICD-10 - E11.65) Diabetes (type 2) material was published 1. Uncontrolled, a Type 2 diabetes with A1c of 8.1 % 2. Blood glucose levels above target. Pt did not bring sylvia reader for download. Pt going to be starting steroid dose pack. Recommend nph 20 units at same time as steroid. Reviewed with pt importance of using meal/corrective scale ac, hs. Reviewed with pt how to titrate basal/bolus insulin according to fasting am/ac glucose patterns. Reviewed with pt importance of bringing sylvia protective signal installer to all apts. Pt verbalizes understanding. 3. [...] hyperglycemia, or diabetes medication issues. 6. Prescriptions: Carelon, please send refills of Jardiance, Novolog, Tresiba [...] high blood pressure material was published Jan, nursing home current use of insulin (ICD-10 - Z79.4) Jan, Kidney transplant status (ICD-10 - Z94.0) keep f/u with nephrology/transpl ant team Jan, Hypoglycemia (ICD-10 - E16.2) Low blood glucose and diabetes material was published Jan, BMI 37.0-37.9, adult (ICD-10 - Z68.37) Eating healthy: tips to make it easier material was published 6 pound weight loss from last visit, continue with weight loss efforts RF Code Other [id number] NotePROCEDURE: XR LSPINE 2_3 VIEWS DATE: 09/29/2022 [...] Electronically authenticated by: SHADI KNOX Date: 2022-09-29 14:41[facility]04-13-2023 NoteCONSULTATION CONSULTATION DATE: 09/24/2022 TO: [...] our patients to inform us about any fenm-rkt-aruenvt medications or herbal remedies/nutritional supplements/alternative remedies. 2. [...] treatment options with their primary care provider.[facility] [id number] Evaluation note * Encounter Date Diagnosis Assessment [...] Jul, Left hand pain (ICD-10 - M79.642) RF Code Other 01-31-2023 Evaluation note* Encounter Date Diagnosis Assessment Notes Treatment Notes Treatment Clinical Notes Jun, Type 2 diabetes mellitus with hyperglycemia (ICD-10 - E11.65) Diabetes (type 2) material was published 1. Uncontrolled, a Type 2 diabetes with A1c of 7.9% 2. Blood glucose levels improved from last visit; however, above target. According to B2Brev cgm download 07/01/2022- 3: Avg glucose 159. [...] high blood pressure material was published Jun, oysterman current use of insulin (ICD-10 - Z79.4) Jun, Kidney transplant status (ICD-10 - Z94.0) keep f/u with nephrology/transpl ant team Jun, BMI 38.0-38.9,adult (ICD-10 - Z68.38) Healthy eating material was published, Heart healthy diet material was published 3 pound weight loss from last visit, continue with weight loss efforts Jun, Hypoglycemia (ICD-10 - E16.2) Low blood glucose and diabetes material was published RF Code Other 01-12-2023 NoteCONSULTATION CONSULTATION DATE: 06/25/2022 HISTORY [...] been seen by Dr. Do, Neurosurgery, in [place] in the past, who did recommend a lumbar fusion in 2019. She has since been referred to [facility] for a second opinion, and the [...] in three months to maintain her medications.[facility] [id number] Evaluation note* Encounter Date Diagnosis Assessment Notes Treatment Notes Treatment Clinical Notes May, Type 2 diabetes mellitus with hyperglycemia (ICD-10 - E11.65) RF Code Other 11-21-2022 Evaluation note* Encounter Date Diagnosis Assessment Notes Treatment Notes Treatment Clinical Notes Apr, Type 2 diabetes mellitus with hyperglycemia (ICD-10 - E11.65) RF Code Other 11-14-2022 Evaluation note* Encounter Date Diagnosis Assessment Notes Treatment Notes Treatment Clinical Notes Apr, Type 2 diabetes mellitus with hyperglycemia (ICD-10 - E11.65) RF Code Other 09-28-2022 Evaluation note* Encounter Date Diagnosis Assessment Notes Treatment Notes Treatment Clinical Notes Feb, Type 2 diabetes mellitus with hyperglycemia (ICD-10 - E11.65) Diabetes (type 2) material was published 1. Uncontrolled, a Type 2 diabetes with A1c of 8.0% 2. Blood glucose levels improved from last visit; however, above target. According to B2Brev cgm download 02/26/2022- 2: Avg glucose 169. [...] high blood pressure material was published Feb, oysterman current use of insulin (ICD-10 - Z79.4) Feb, Kidney transplant status (ICD-10 - Z94.0) keep f/u with nephrology Feb, Vitamin D deficiency (ICD-10 - E55.9) 07/2021 vit d 23.9, recommend otc vit d 2000 units once daily Feb, BMI 38.0-38.9,adult (ICD-10 - Z68.38) Healthy eating material was published 3 pound weight loss from last visit, continue with weight loss efforts RF Code Other 08-11-2022 NoteCONSULTATION CONSULTATION DATE: 01/22/2022 HISTORY [...] and is requesting to go back to [place] 10 today. She states that helps her [...] There will be no dose changes to [place]. She will be back in three months' time, if she does not want to move forward with the procedure.[facility] [id number] Evaluation note* Encounter Date Diagnosis Assessment Notes Treatment Notes Treatment Clinical Notes Nov, Type 2 diabetes mellitus with hyperglycemia (ICD-10 - E11.65) Diabetes (type 2) material was published 1. Uncontrolled, a Type 2 diabetes with A1c of 8.4% 2. Blood glucose levels improved from last visit; however, above target. According to B2Brev cgm download 11/21/2021- 2: Avg glucose 182. [...] 6. Prescriptions: Ozempic 2mg/Jardiance 25mg sent to [facility] Nov, Dietary counseling and surveillance (ICD-10 - Z71.3) Maintaining a healthful weight material was published Nov, Hyperlipidemia (ICD-10 - E78.5) Managing your cholesterol material was published 07/2021 ldl 79, trig 355, on statin. Nov, HTN (hypertension) (ICD-10 - I10) Managing high blood pressure material was published Nov, nursing home current use of insulin (ICD-10 - Z79.4) Nov, Kidney transplant status (ICD-10 - Z94.0) keep f/u with nephrology Nov, Vitamin D deficiency (ICD-10 - E55.9) 07/2021 vit d 23.9, recommend otc vit d 2000 units once daily Nov, BMI 38.0-38.9,adult (ICD-10 - Z68.38) Healthy eating material was published 3 pound weight loss from last visit, continue with weight loss efforts RF Code Other 06-09-2022 NoteCONSULTATION CONSULTATION DATE: 11/20/2021 HISTORY [...] to move forward and all questions answered. [facility] Signed and Approved by: ELIESER BIRCH . 11/27/2021 16:02:00[facility]02-22-2022 Evaluation note* Encounter Date Diagnosis Assessment Notes Treatment Notes Treatment Clinical Notes Jul, Type 2 diabetes mellitus with hyperglycemia (ICD-10 - E11.65) Diabetes (type 2) material was published 1. Uncontrolled, a Type 2 diabetes with A1c of 7.9% 2. Blood glucose levels improved from last visit; however, above target. According to B2Brev cgm download 07/23/2021-08/05/2021 : Avg glucose 154. [...] issues. 6. Prescriptions: Sent ozempic 1mg to [facility]. Jul, Dietary counseling and surveillance (ICD-10 - Z71.3) Maintaining a healthful weight material was published Jul, Hyperlipidemia (ICD-10 - E78.5) Managing your cholesterol material was published 07/2021 ldl 79, trig 355, on statin. Jul, HTN (hypertension) (ICD-10 - I10) Managing high blood pressure material was published Jul, oysterman current use of insulin (ICD-10 - Z79.4) Jul, Kidney transplant status (ICD-10 - Z94.0) keep f/u with nephrology Jul, BMI 39.0-39.9,adult (ICD-10 - Z68.39) Healthy eating material was published 9 pound weight loss from last visit, continue with weight loss efforts Jul, Vitamin D deficiency (ICD-10 - E55.9) 07/2021 vit d 23.9, recommend otc vit d 2000 units once daily RF Code Other 02-01-2022 Evaluation note* Encounter Date Diagnosis Assessment Notes Treatment Notes Treatment Clinical Notes Jul, Type 2 diabetes mellitus with hyperglycemia (ICD-10 - E11.65) RF Code Other 11-01-2020 History general Narrative - Reported* Type Description Date Medical History DM2 Medical History KIDNEY RT/TRANSPLANT 2012 Medical History HLP Medical History HTN Medical History PVD Medical History Fractured left ankle 04/2020 Surgical History RT KIDNEY TRANSPLANT 2012 Surgical History LT SHOULDER Surgical History HYSTER Surgical History [facility]Y Hospitalization History SEE ABOVE SURGERY [facility] [employer] Other Chiox complaint+Reason for visit Narrative* Chief Complaint 3 month f/u/ sylvia r eader Reason for Visit BMI 36.0-36.9,adult Dietary counseling and surveillance History of transplantation, renal Hyperlipidemia Hypertension Type 2 diabetes mellitus with hyperglycemia [facility] Work Phone: evalucxamc noteNo InformationNortWellSpan [facility] [employer] Other evaluation noteNo assessment information available [facility] Work Phone: evaluation note* Diagnosis Anemia, unspecified [facility] Diagnosis Onset Date Resolution Status Type 2 diabetes mellitus with hyperglycemia acute [facility] Work Phone: Evaluation note* Diagnosis Onset Date Resolution Status BMI 36.0-36.9,adult acute Dietary counseling and surveillance acute History of transplantation, renal acute Hyperlipidemia acute Hypertension acute Type 2 diabetes mellitus with hyperglycemia acute [facility] Work Phone: Evaluation note* Diagnosis Essential hypertension- Primary Unspecified essential hypertension Immunosuppression ([facility]) Obesity, morbid ([facility]) Morbid obesity Diabetic polyneuropathy associated with type 2 diabetes mellitus ([facility]) Mixed hyperlipidemia Influenza vaccination administered at current visit Insomnia, unspecified type documented in this encounter [facility] Diagnosis Diabetic polyneuropathy associated with type 2 diabetes mellitus ([facility]) documented [facility] encounter [facility] Diagnosis Diabetic polyneuropathy associated with type 2 diabetes mellitus ([facility]) documented in this encounter [facility] SystemInstructionsNot on filedocumented in this encounter [facility] SystemInstructionsNot on filedocumented in this encounter [facility] SystemInstructionsNot on filedocumented in this encounter [facility] SystemInstructionsNot on filedocumented in this encounter [facility] Summary Purpose Family History Relationship Condition Age at Onset Recorded Date/T [...] sibling Diabetes mellitus Unknown Malignant neoplasm Unknown Relationship Condition Age at Onset Recorded Date/T jolene mother Hypertension Unknown History of heart surgery Unknown Type 2 diabetes mellitus Unknown father Hypertension Unknown Myocardial infarction Unknown Malignant neoplasm of lung Unknown brother Malignant neoplasm of colon Unknown Hypertension Unknown brother Type 2 diabetes mellitus Unknown father History of stroke Unknown Heart disease Unknown Diabetes mellitus Unknown Unknown History of stroke Unknown sibling Diabetes mellitus Unknown Malignant neoplasm Unknown Advance Directives Advance Directive Response Recorded Date/ Time Advance Directives No October 08, 018 4:05pm Advance Directive Response Recorded Date/ Time Advance Directives No October 08 5:05pm Chief Complaint and Reason for Visit Chief Complaint 3 Month Follow Up Type 2 DM with Diabetic Neuropathy Chief Complaint NO METER Reason for Visit Type 2 diabetes deloris itus with hyperglycemia Additional Source Comments REASON FOR VISIT (unrecogniz ed section and content) Reason Comments Med Refill Reason Onset Date Comments Med Refill 03/02/2024 Reason Comments refill on medications Reason Onset Date Comments Med Refill 04/10/2024 Reason Onset Date Comments Med Refill 05/05/2024 INFORMATION SOURCE (unrecogn ized section and content) DATE CREATED AUTHOR 10/24/2022 [facility] DATE CREATED AUTHOR AUTHOR'S ORGANIZ ATION 06/04/2023 [facility] DATE CREATED AUTHOR AUTHOR'S ORGANIZ ATION 07/28/2023 [facility] DATE CREATED AUTHOR AUTHOR'S ORGANIZ ATION 10/02/2023 [facility] DATE CREATED AUTHOR AUTHOR'S ORGANIZ ATION 12/18/2023 [facility] DATE CREATED AUTHOR AUTHOR'S ORGANIZ ATION 04/15/2024 [facility] DATE CREATED AUTHOR AUTHOR'S ORGANIZ ATION 04/15/2024 [facility] Care Teams (unrecognized sec tion [...] End: May 13, 2023 Jonathan Nick APRN TIRE WORKER-C Active Sta rt: May 13, 2023 End: May 13, 2023 Airam Thomas APRN Attending Provider Active Start: May 13, 2023 End: May 13, 2023 Media Liaison Officer Relationship Specialty Start Date End Date Marycruz Guzman PROTECTION OFFICER-HORTICULTURE INSTRUCTOR [address] [place] [address] PCP - General 11/03/16 Team Status: Inactive Member Role Status Dates Marycruz Guzman HORTICULTURE INSTRUCTOR Primary Care Provider Active S tart: October 04, 2023 End: October 04, 2023 Airam Thomas APRN Attending Provider Active Start: October 04, 2023 End: October 04, 2023 Team Status: Inactive Member Role Status Dates Marycruz Guzman HORTICULTURE INSTRUCTOR Primary Care Provider Active S tart: February 23, 2024 End: February 23, 2024 Airam Thomas APRN Attending Provider Active Start: February 23, 2024 End: February 23, 2024 Media Liaison Officer Relationship Specialty Start Date End Date Carrie Howard APRN-FORMULATION SCIENTIST [address] [place] [address] PCP - General Family Medicine 02/16/24 Media Liaison Officer Relationship Specialty Start Date End Date Carrie Howard APRN-FORMULATION SCIENTIST [address] [place] [address] PCP - General Family Medicine 02/16/24 Media Liaison Officer Relationship Specialty Start Date End Date Carrie Howard APRN-FORMULATION SCIENTIST [address] [place] [address] PCP - General Family Medicine 02/16/24 Media Liaison Officer Relationship Specialty Start Date End Date Carrie Howard APRN-FORMULATION SCIENTIST [address] [place] [address] PCP - General Family Medicine 02/16/24 Goals (unrecognized section and content) Goals may [...] BE BASED ON THE PRIMARY CLINICAL RECORDS. [facility]. provides no warranty or guarantee of the accuracy or completeness of information in this document.
--- NOTE | 2024-05-17 11:44 | PM.CN ---
Consult Note: HPI Data of Consult Patient: known to practice within the last 3 years Consult date: 09/27/23 Requesting Physician: Qiana Chiu NP Primary Care Provider: YOLANDA MAGAÑA Consult Narrative Reason for consult: low back, bilateral lower extremity pain Narrative: 68yof who presents for assessment. continues to have low back, bilateral lower extremity pain. imaging reviewed, which shows moderate to severe stenosis from l2-5. uses percocet, baclofen, and gabapentin. denies adverse med side effects. failed to benefit from greater than 6 weeks of provider guided HEP. Patient historically has declined interventional therapy and NS consult, however she is now interested in a spinal cord stimulator trial. Pain 10/10 increasing with all activity improved mildly from rest and current medications. 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 - Type 1 diabetes mellitus with ketoacidosis without coma (ICD-10) Kidney failure ?N19 - Unspecified kidney failure (ICD-10) Hypertension ?I10 - Essential (primary) hypertension (ICD-10) Surgical History History of cholecystectomy ?Z90.49 - Acquired absence of other specified parts of digestive tract (ICD-10) History of arthroscopy of left shoulder ?Z98.890 - Other specified postprocedural states (ICD-10) H/O hand surgery ?Z98.890 - Other specified postprocedural states (ICD-10) H/O section ?Z98.891 - History of uterine scar from previous surgery (ICD-10) H/O cervical spine surgery ?Z98.890 - Other specified postprocedural states (ICD-10) History of tonsillectomy and adenoidectomy ?Z90.89 - Acquired absence of other organs (ICD-10) History of carpal tunnel release of both wrists ?Z98.890 - Other specified postprocedural states (ICD-10) H/O: hysterectomy ?Z90.710 - Acquired absence of both cervix and uterus (ICD-10) Kidney transplant recipient ?Z94.0 - Kidney transplant status (ICD-10) Social History Smoking status: Never smoker Meds Home Medications and Allergies Home Medications ?Medication ?Instructions ?Recorded ?Confirmed ?Type OSCAL 11/23/22 History atorvastatin 40 mg tablet 40 mg PO .HS 11/23/22 04/20/23 History dulaglutide 1.5 mg/0.5 mL 1.5 mg subcut QWEEK 11/23/22 04/20/23 History subcutaneous pen injector (Trulicity) empagliflozin 25 mg tablet 25 mg PO DAILY 11/23/22 04/20/23 History (Jardiance) ferrous sulfate 325 mg (65 mg mg 11/23/22 History iron) tablet gabapentin 600 mg tablet mg PO TID 11/23/22 History insulin aspart U-100 100 unit/mL 30 unit subcut TID 11/23/22 04/20/23 History (3 mL) subcutaneous pen (Novolog FlexPen U-100 Insulin aspart) mycophenolate mofetil 500 mg tablet 800 mg PO BID 11/23/22 04/20/23 History sertraline 100 mg tablet 100 mg PO DAILY 11/23/22 04/20/23 History tacrolimus 1 mg capsule, 3 mg PO Q12H 11/23/22 04/20/23 History immediate-release baclofen 10 mg tablet 10 mg PO TID PRN muscle spasm #90 03/03/23 04/20/23 Rx tabs semaglutide 0.25 mg or 0.5 mg (2 0.25 mg subcut QWEEK 04/20/23 04/20/23 History mg/3 mL) subcutaneous pen injector (Ozempic) semaglutide 0.25 mg or 0.5 mg (2 0.25 mg subcut QWEEK 04/20/23 04/20/23 History mg/3 mL) subcutaneous pen injector (Ozempic) oxycodone-acetaminophen 7.5 mg-325 1 tab PO TID PRN pain #90 tabs 02/10/24 Rx mg tablet (Percocet) oxycodone-acetaminophen 7.5 mg-325 1 tab PO TID PRN pain #90 tabs 03/10/24 Rx mg tablet (Percocet) naloxone 4 mg/actuation nasal 4 mg intranasal Q2M #2 ea 04/12/24 Rx spray (Narcan) oxycodone-acetaminophen 7.5 mg-325 1 tab PO TID PRN pain #90 tabs 04/12/24 Rx mg tablet (Endocet) oxycodone-acetaminophen 7.5 mg-325 1 tab PO TID PRN pain #90 tabs 05/15/24 Rx mg tablet (Percocet) Allergies Allergy/AdvReac Type Severity Reaction Status Date / Time No Known Drug Allergies Allergy Verified 01/26/23 10:17 Exam Constitutional Documenting provider has reviewed patient's vital signs: yes Common normals: no apparent distress, oriented x3, healthy appearing, alert and well nourished General appearance: cooperative HENVA Common normals: normocephalic, hearing grossly normal bilaterally and moist oral mucous membranes Head and scalp: normocephalic Eye Common normals: PERRL Pupil: PERRL Neck & C-Spine Common normals: full ROM General: normal visual inspection Chest Common normals: inspection of chest normal Respiratory Common normals: normal respiratory effort, no retractions and no use of accessory muscles Back & Pelvis Lumbar spine/lower back: ROM limited, pain with ROM, straight leg raise positive right and straight leg raise positive left Sacroiliac joints: SI joint(s) abnormal Other: altered sensation to bilateral L4,5,S1 pattern strength 4/5 in BLE Extremity Common normals: normal to inspection and full ROM Neuro Common normals: oriented x3, CN's II-XII intact bilaterally, moves all extremities, no focal motor deficits, no sensory deficits noted and deep tendon reflexes 2+ bilaterally Sensorium/orientation: alert Gait (neuro): antalgic Motor exam: no movement abnormalities noted and strength abnormal Psych Common normals: mental status grossly normal, thought process normal, cooperative, affect normal, speech normal and activity/motor behavior normal Speech: normal speech Thought process: normal thought process Results Additional Findings Additional findings: If on a controlled substance or opioids, I have checked an [place] report on this patient and there are no aberrancies noted in the prescribing history.??If on a controlled substance or opioid a drug screen was completed and reviewed within the last year, and if there has not been a drug screen completed we ordered one today to monitor higher risk, state monitored pain medication use. As part of providing excellent, safe, comprehensive care, the following was completed at our patient's visit: 1. A medication reconciliation and review to ensure accurate knowledge of current/active medications, including asking our patients to inform us about any aikm-isa-exgcteo medications or herbal remedies/nutritional supplements/alternative remedies. 2. A review to specifically ensure our patients have had annual screening for screening for depression, screening for tobacco use, and screening for unhealthy alcohol use. For concerning screenings had a discussion with the patient, provided patient education, and recommended follow-up with primary care provider when appropriate. If patient noted with a risk of falling, they received education on strength, gait, and balance training to prevent future risk of falling. Assessment and Plan Assessment and Plan (1) Lumbar stenosis with neurogenic claudication: (2) Lumbar spondylosis: (3) Encounter for long-term use of opiate analgesic: (4) Myofascial pain: Plan psychiatric evaluation complete, pt pending NS consult with Dr Thompson proceed with [employer] SCS trial under fluoroscopy with MAC sedation, risks vs benefits reviewed, one workup is complete stop baclofen start flexeril 10mg TID PRN pain spasmsing, risks vs benefits reviewed continue other medications continue provider guided HEP as tolerated f/u for spinal cord stim trial and lead removal
== END 2024-05-17 11:27 | disposition home or self-care (01) ==
LOC: PM 11:26
PROVIDERS: PCP Nurse Practitioner Family; Visit Provider Nurse Practitioner
DX: M48.062 Spinal stenosis, lumbar region with neurogenic claudication (principal); M47.816 Spondylosis without myelopathy or radiculopathy, lumbar region; Z79.891 Long term (current) use of opiate analgesic; M79.18 Myalgia, other site
CPT/HCPCS: G0463

== ENCOUNTER 2024-08-17 10:21 | Outpatient (OUT) | payer MEDICARE, SELFPAY ==
--- NOTE | 2024-08-17 11:34 | P.CN_ITS ---
Consult Note: HPI Data of Consult Patient: known to practice within the last 3 years Requesting Physician: Qiana Chiu NP Primary Care Provider: YOLANDA MAGAÑA Consult Narrative Reason for consult: low back, bilateral lower extremity pain Narrative: 68yof who presents for assessment. continues to have low back, bilateral lower extremity pain. imaging reviewed, which shows moderate to severe stenosis from l2-5. uses percocet, baclofen, and gabapentin. denies adverse med side effects. failed to benefit from greater than 6 weeks of provider guided HEP. Patient historically has declined interventional therapy and NS consult, however she is now interested in a spinal cord stimulator trial. Pain 10/10 increasing with all activity improved mildly from rest and current medications. Since last visit pt has met with a spine clinic [facility] Ramos APRN for consultation, provider is recommending an updated lumbar MRI and that pt follow with a NS to discuss surgical options vs spinal cord stim trial. 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 - Type 1 diabetes mellitus with ketoacidosis without coma (ICD-10) Kidney failure ?N19 - Unspecified kidney failure (ICD-10) Hypertension ?I10 - Essential (primary) hypertension (ICD-10) Surgical History History of cholecystectomy ?Z90.49 - Acquired absence of other specified parts of digestive tract (ICD- 10) History of arthroscopy of left shoulder ?Z98.890 - Other specified postprocedural states (ICD-10) H/O hand surgery ?Z98.890 - Other specified postprocedural states (ICD-10) H/O section ?Z98.891 - History of uterine scar from previous surgery (ICD-10) H/O cervical spine surgery ?Z98.890 - Other specified postprocedural states (ICD-10) History of tonsillectomy and adenoidectomy ?Z90.89 - Acquired absence of other organs (ICD-10) History of carpal tunnel release of both wrists ?Z98.890 - Other specified postprocedural states (ICD-10) H/O: hysterectomy ?Z90.710 - Acquired absence of both cervix and uterus (ICD-10) Kidney transplant recipient ?Z94.0 - Kidney transplant status (ICD-10) Social History Smoking status: Never smoker Meds Home Medications and Allergies Home Medications ?Medication ?Instructions ?Recorded ?Confirmed ?Type OSCAL 11/23/22 History atorvastatin 40 mg tablet 40 mg PO .HS 11/23/22 04/20/23 History dulaglutide 1.5 mg/0.5 mL 1.5 mg subcut QWEEK 11/23/22 04/20/23 History subcutaneous pen injector (Trulicity) empagliflozin 25 mg tablet 25 mg PO DAILY 11/23/22 04/20/23 History (Jardiance) ferrous sulfate 325 mg (65 mg mg 11/23/22 History iron) tablet gabapentin 600 mg tablet mg PO TID 11/23/22 History insulin aspart U-100 100 unit/mL 30 unit subcut TID 11/23/22 04/20/23 History (3 mL) subcutaneous pen (Novolog FlexPen U-100 Insulin aspart) mycophenolate mofetil 500 mg tablet 800 mg PO BID 11/23/22 04/20/23 History sertraline 100 mg tablet 100 mg PO DAILY 11/23/22 04/20/23 History tacrolimus 1 mg capsule, 3 mg PO Q12H 11/23/22 04/20/23 History immediate-release baclofen 10 mg tablet 10 mg PO TID PRN muscle spasm #90 03/03/23 04/20/23 Rx tabs semaglutide 0.25 mg or 0.5 mg (2 0.25 mg subcut QWEEK 04/20/23 04/20/23 History mg/3 mL) subcutaneous pen injector (Ozempic) semaglutide 0.25 mg or 0.5 mg (2 0.25 mg subcut QWEEK 04/20/23 04/20/23 History mg/3 mL) subcutaneous pen injector (Ozempic) naloxone 4 mg/actuation nasal 4 mg intranasal Q2M #2 ea 04/12/24 Rx spray (Narcan) oxycodone-acetaminophen 7.5 mg-325 1 tab PO TID PRN pain #90 tabs 06/12/24 Rx mg tablet (Percocet) oxycodone-acetaminophen 7.5 mg-325 1 tab PO TID PRN pain #90 tabs 07/10/24 Rx mg tablet (Percocet) oxycodone-acetaminophen 7.5 mg-325 1 tab PO TID PRN pain #90 tabs 08/14/24 Rx mg tablet (Percocet) Allergies Allergy/AdvReac Type Severity Reaction Status Date / Time No Known Drug Allergies Allergy Verified 01/26/23 10:17 Exam Constitutional Documenting provider has reviewed patient's vital signs: yes Common normals: no apparent distress, oriented x3, healthy appearing, alert and well nourished General appearance: cooperative HENGA Common normals: normocephalic, hearing grossly normal bilaterally and moist oral mucous membranes Head and scalp: normocephalic Eye Common normals: PERRL Pupil: PERRL Neck & C-Spine Common normals: full ROM General: normal visual inspection Chest Common normals: inspection of chest normal Respiratory Common normals: normal respiratory effort, no retractions and no use of accessory muscles Back & Pelvis Lumbar spine/lower back: ROM limited, pain with ROM, straight leg raise positive right and straight leg raise positive left Sacroiliac joints: SI joint(s) abnormal Other: altered sensation to bilateral L4,5,S1 pattern strength 4/5 in BLE Extremity Common normals: normal to inspection and full ROM Neuro Common normals: oriented x3, CN's II-XII intact bilaterally, moves all extremities, no focal motor deficits, no sensory deficits noted and deep tendon reflexes 2+ bilaterally Sensorium/orientation: alert Gait (neuro): antalgic Motor exam: no movement abnormalities noted Psych Common normals: mental status grossly normal, thought process normal, cooperative, affect normal, speech normal and activity/motor behavior normal Speech: normal speech Thought process: normal thought process Results Additional Findings Additional findings: If on a controlled substance or opioids, I have checked an [place] report on this patient and there are no aberrancies noted in the prescribing history.??If on a controlled substance or opioid a drug screen was completed and reviewed within the last year, and if there has not been a drug screen completed we ordered one today to monitor higher risk, state monitored pain medication use. As part of providing excellent, safe, comprehensive care, the following was completed at our patient's visit: 1. A medication reconciliation and review to ensure accurate knowledge of current/active medications, including asking our patients to inform us about any [id number] medications or herbal remedies/nutritional supplements/alternative remedies. 2. A review to specifically ensure our patients have had annual screening for screening for depression, screening for tobacco use, and screening for unhealthy alcohol use. For concerning screenings had a discussion with the patient, provided patient education, and recommended follow-up with primary care provider when appropriate. If patient noted with a risk of falling, they received education on strength, gait, and balance training to prevent future risk of falling. Portions of this note may have been carried over from the previous visit and updated as appropriate. Please note this office utilizes paper charting in addition to the electronic medical record. A list of current medications, vitals, and PMH is available there as the clinical staff outside of myself do not have access to [email or web address] charting during the clinic day operations. As part of providing quality compr ehensive care the current medications, vitals, and PMH were reviewed in the paper chart. Assessment and Plan Assessment and Plan (1) Lumbar stenosis with neurogenic claudication: (2) Lumbar spondylosis: (3) Encounter for long-term use of opiate analgesic: (4) Myofascial pain: Plan stop flexeril, start baclofen 15mg BID PRN pain spasms. risks vs benefits reviewed, previously found mild benefit from 10mg TID PRN continue gabapentin 600mg QID continue percocet 7.5-325mg TID PRN moderate to severe pain continue f/u with spine clinic [facility] Ramos pt to have an updated lumbar MRI then notify her office of which surgeon/health system NS team she would like to meet with for consultation. pt is interested in spinal cord stimulation trial over surgical intervention per pt f/u 6 weeks to review medication changes and plan of care
== END 2024-08-17 10:22 | disposition home or self-care (01) ==
PROVIDERS: PCP Nurse Practitioner Family; Visit Provider Nurse Practitioner
DX: M48.062 Spinal stenosis, lumbar region with neurogenic claudication (principal); M47.816 Spondylosis without myelopathy or radiculopathy, lumbar region; Z79.891 Long term (current) use of opiate analgesic; M79.18 Myalgia, other site
CPT/HCPCS: G0463

== ENCOUNTER 2024-09-08 09:31 | Outpatient (OUT) | payer MEDICARE, SELFPAY ==
--- OUTSIDE RECORDS SUMMARY | 2024-09-08 09:35 | XMS_ITS | CCD ---
Author Organization [facility] Care Team Providers Care Hop Weigher Name Role Phone Airam Thomas Unavailable Sara [...] NON STAFF Primary Care Provider Unavailabl e MURALI Thomas Attending Provider [phone] Airam Thomas K Attending Unavailable Mapus, Tondra K Admitting Unavailable NON STAFF Primary Care Unavailable Berhane ANDERSON, Tra Rowe Attending Unavailable ANITA, ALEXANDRIA L Referring Unavailable ANITA, ALEXANDRIA L Primary Care Unavailable DAWNA, BENTLEY Referring Unavailable DAWNA, BENTLEY Referring Unavailable DAWNA, BENTLEY Referring Unavailable Anita HEATER ROOM HELPERRANDY, Alexandria Krishna Primary Care Provider ANITA, ALEXANDRIA L Attending Unavailable ANITA, ALEXANDRIA L Referring Unavailable ANITA, ALEXANDRIA L Primary Care Unavailable KUNS, MALIK Referring Unavailable KUNS, MALIK Primary Care Unavailable KUNS, MARYCRUZ R Referring Unavailable KUNS, MARYCRUZ R Primary Care Unavailable ANITA, ALEXANDRIA L Attending Unavailable ANITA, ALEXANDRIA L Referring Unavailable ANITA, ALEXANDRIA L Primary Care Unavailable ELEN ARCHER Attending Unavailable ANITA, ALEXANDRIA L Referring Unavailable ANITA, ALEXANDRIA L Primary Care Unavailable KUNS, MALIK Referring Unavailable KUNS, MALIK Primary Care Unavailable ELEN ARCHER Referring Unavailable ANITA, ALEXANDRIA L Primary Care Unavailable MACARIO RIVERO Referring Unavailable ANITA, ALEXANDRIA L Primary Care Unavailable Anita Alexandria ORTEGA Primary Care Provider Allergies Allergy Classification Reported Allergen(s) Allergy Type Date of Onset Reaction(s) Facility (1 source) ALLERGIES NOT ON FILE; Translations: [ALLERGIES NOT ON FILE] Propensity to adverse reactions (disorder) [facility] Repository Medications Current Medications Medication Drug Class(es) Dates [...] / oxyCODONE hydrochloride 7.5 mg oral tablet (13 sources) Opioid Agonist Start: 10-04-2023 End: 07-18-2024 oxyCODONE-acetaminophen (PERCOCET) 7.5-325 mg per tablet Take 1 tablet by mouth 3 (three) times a day as needed for pain. Max Daily Amount: 3 tablets 07/16/2024 Active Start: 08-08-2019 End: 10-04-2023 take 1 tablet by mouth three times daily Oxycodone-Acetaminophen 10-325 mg tablet Discontinued 1 TAB PO Three times daily August 08, 2019 12:00am October 04, 2023 9:40am End: 08-10-2024 take 1 tablet by mouth twice daily as needed oxyCODONE-acetaminophen (PERCOCET) 10-32 5 mg per tablet oxycodone-acetaminophen 10 mg-325 mg tablet TAKE 1 TABLET BY MOUTH TWICE DAILY NEEDED 08/10/2024 Discontinued (Dose adjustment) aspirin 81 mg delayed release oral tablet (20 sources) Platelet Aggregation Inhibitor, Nonsteroidal Anti-inflammatory Drug Start: 08-08-2019 Aspirin (Kory Lo w Dose Aspirin) 81 mg Tablet,Delayed Release (Dr/Ec) Active 81 MG PO Every morning August 08, 2019 12:00am Aspirin 81 MG as directed Orally Active cholecalciferol 0.05 mg oral capsule (3 sources) Vitamin D Start: 10-04-2023 take 1 capsule by mouth once daily Cholecalciferol (Vitamin D3) 50 mcg (2,000 unit) capsule Active 2000 UNIT PO Daily October 03, 2023 11:00pm cyclobenzaprine hydrochloride 10 mg oral tablet (7 sources) Muscle Relaxant Start: 08-08-2019 take 1 tablet by mouth three times daily as needed cyclobenzaprine (FLEXERIL) 10 mg tablet Take 1 tablet (10 mg total) by mouth 3 (three) times a day as needed. 07/06/2024 Active diclofenac sodium 0.01 mg/mg topical gel (20 sources) Nonsteroidal Anti-inflammatory Drug Start: 10-04-2023 apply 2 g topically twice daily Diclofenac Sodium 1 % gel Active TOPICAL October 03, 2023 11:00pm FreeTextSi grams to affected area Transdermal Twice a day; Note: Source Status: Taking; Refills: 0; Provider: Zeynep Ruiz ( ) Start: 10-04-2023 apply 2 g topically twice sharon y Diclofenac Sodium Active TOPICAL October 04, 2023 12:00am FreeTextSi grams to affected area Transdermal Twice a day; Note: Source Status: Taking; Refills: 0; Provider: Zeynep Ruiz ( ) Diclofenac Sodiu m 1 % 2 grams to affected area Transdermal Twice a day for 30 Active diclofenac sodium-menthoL 1. 5-10 % combo pack (5 sources) Start: 07-13-2024 diclofenac sod ium-menthoL 1.5-10 % combo pack Apply 1 Application topically in the morning and 1 Application at noon and 1 Application in the evening and 1 Application before bedtime. 239 mL 1 07/13/2024 Active Start: 04-13-2024 diclofenac sod ium-menthoL 1.5-10 % combo pack Apply 1 Application topically in the morning and 1 Application at noon and 1 Application in the evening and 1 Application before bedtime. 239 mL 1 04/13/2024 Active empagliflozin 25 mg oral tablet (20 sources) Sodium-Glucose Cotransporter 2 Inhibitor Start: 08-08-2019 End: 02-23-2024 take 1 tablet by mouth once daily in the morning Empagliflozin 25 mg tablet Active 25 MG PO Every morning 90 February 23, 2024 9:51am take 1 tablet by mouth once sharon y empagliflozin (JARDIANCE) 10 mg tablet tablet 1 tablet Orally Once a day for 30 day(s) Active ferrous sulfate 325 mg oral tablet (20 sources) Start: 06-19-2024 take 1 tablet by mouth in the morning, then take 1 tablet by mouth at mealtime ferrous sulfate 325 (65 FE) mg tablet Indications: Anemia, unspecified Take 1 tablet (325 mg total) by mouth in the morning and 1 tablet (325 mg total) in the evening. Take with meals. 180 tablet 3 06/19/2024 Active Start: 08-08-2019 End: 06-16-2024 take 1 tablet by mouth in the morning, then take 1 tablet by mouth at mealtime ferrous sulfate 325 (65 FE) mg tablet Indications: Anemia, unspecified Take 1 tablet (325 mg total) by mouth in the morning and 1 tablet (325 mg total) in the evening. Take with meals. 180 tablet 3 06/19/2024 Active take 1 tablet by nirali th every twenty-four hours Ferrous Sulfate 325 (65 Fe) MG 1 tablet Orally Once a day Active take 1 tablet by nirali th once daily Ferrous Sulfate 325 (65 Fe) MG 1 tablet Orally Once a day Active flash glucose scanning reade r (FREESTYLE SYLVIA 14 DAY READER) [facility] (5 sources) flash glucose sc anning reader (FREESTYLE SYLVIA 14 DAY READER) misc FreeStyle Sylvia 14 Day Eagle Active flash glucose sensor (FREEST YLE SYLVIA 14 DAY SENSOR) kit (5 sources) flash glucose se nsor (FREESTYLE SYLVIA 14 DAY SENSOR) kit FreeStyle Sylvia 14 Day Sensor kit USE DIRECTED CHANGE EVERY 14 DAYS Active Flash Glucose Sensor (Freest yle Sylvia 2 Sensor) kit (1 source) Start: 02-23-2024 Flash Glucose Sensor (Freestyle Sylvia 2 Sensor) kit Active 0 .ROUTE .MEDSUPPLY 2 February 22, 2024 11:00pm change every 14 days FreeStyle Sylvia 2 Sensor - (18 sources) FreeStyle Sylvia 2 Sensor - USE DIRECTED. CHANGE EVERY 14 DAYS for 84 Active FreeStyle Sylvia 2 Sensor - as directed SQ change every 14 days for 84 days Active FreeStyle Precision Hraish Test - (20 sources) FreeStyle Precis ion Harish Test - USE DIRECTED TWICE A DAY for 90 Active FreeStyle Precis ion Harish Test - as directed In Vitro bid for 90 days Active gabapentin 600 mg oral tablet (9 sources) Anti-epileptic Agent Start: 08-08-2019 gabapenti n [...] U-200) 200 unit/mL (3 mL) insulin pen (11 sources) Start: 07-18-2024 inject 60 [IU] by subcutaneous injection once daily in the morning, then inject 70 [IU] by subcutaneous injection once daily Insulin Degludec (Tresiba Flextouch U-200) 200 unit/mL (3 mL) insulin pen Active 60 UNIT SUBCUT Every morning July 18, 2024 10:36am INJECT 60 UNITS SUBCUTANEOUSLY ONCE DAILY. MAY TITRATE UP TO 70 UNITS PER DAY DIRECTED; Start: 02-23-2024 End: 07-18-2024 inject 60 [IU] by subcutaneous injection once daily in the morning, then inject 70 [IU] by subcutaneous injection once daily Insulin Degludec (Tresiba Flextouch U-200) 200 unit/mL (3 mL) insulin pen Discontinued 60 UNIT SUBCUT Every morning February 23, 2024 9:21am July 18, 2024 10:37am INJECT 60 UNITS SUBCUTANEOUSLY ONCE DAILY. MAY TITRATE UP TO 70 UNITS PER DAY DIRECTED; Start: 02-23-2024 inject 60 [IU] by shi bcutaneous injection [...] pen Discontinued 62 UNIT SUBCUT Every morning 36 October 04, 2023 10:36am February 23, 2024 9:24am FreeTextSig: INJECT 62 UNITS SUBCUTANEOUSLY ONCE DAILY. MAY TITRATE UP TO 70 UNITS PER DAY DIRECTED; Note: Source Status: Taking; Refills: 3; Qty: 36 Milliliter; Provider: William Alegria ( ) Start: 10-04-2023 End: 02-23-2024 inject 62 [IU] by subcutaneous injection once daily in the morning, then inject 70 [IU] by subcutaneous injection once daily Insulin Degludec (Tresiba Flextouch U-200) 200 unit/mL (3 mL) insulin pen Discontinued 62 UNIT SUBCUT Every morning 36 October 04, 2023 11:36am February 23, 2024 [...] UNIT SUBCUT Every morning August 17, 2023 4:25pm October 04, 2023 10:38am FreeTextSig: INJECT 60 UNITS SUBCUTANEOUSLY ONCE DAILY. [...] UNIT SUBCUT Every morning August 17, 2023 12:00am August 17, 2023 4:28pm FreeTextSig: INJECT 60 UNITS SUBCUTANEOUSLY ONCE DAILY. [...] suspension (5 sources) Start: 01-21-2023 NovoLIN N Reli On 100 UNIT/ML 20 units at same time as steroid Subcutaneous as directed for 30 days Jan, Active Insulin Lispro-Aabc (Lyumjev Kwikpen U-100 Insulin) 100 unit/mL insulin pen (3 sources) Start: 07-18-2024 Insulin Lispro -Aabc (Lyumjev Kwikpen U-100 Insulin) 100 unit/mL insulin pen Active 0 SUBCUT Use as Directed July 18, 2024 10:36am INJECT 25, 30, 35 UNITS ACCORDING TO MEAL SIZE BEFORE MEALS. CORRECTIVE SCALE 1:10 BEFORE MEALS 3 TIMES A DAY (AT BEDTIME IF GREATER THAN 200 HALF DOSE) DIRECTED, UP TO 120 UNITS PER DAY; Start: 10-27-2023 End: 07-18-2024 Insulin Lispro-Aabc (Lyumjev Kwikpen U-100 Insulin) 100 unit/mL insulin pen Discontinued 0 SUBCUT Use as Directed October 26, 2023 11:00pm July 18, 2024 10:37am INJECT 25, 30, 35 UNITS ACCORDING TO MEAL SIZE BEFORE MEALS. CORRECTIVE SCALE 1:10 BEFORE MEALS 3 TIMES A DAY (AT BEDTIME IF GREATER THAN 200 HALF DOSE) DIRECTED, UP TO 120 UNITS PER DAY; Start: 10-27-2023 Insulin Lispro -Aabc (Darlenegeoffreyclaudio Paulapen U-100 Insulin) 100 unit/mL insulin pen Active 0 SUBCUT Use as Directed October 27, 2023 12:00am INJECT 25, 30, 35 UNITS ACCORDING TO MEAL SIZE BEFORE MEALS. CORRECTIVE SCALE 1:10 BEFORE MEALS 3 TIMES A DAY (AT BEDTIME IF GREATER THAN 200 HALF DOSE) DIRECTED, UP TO 120 UNITS PER DAY; isopropyl alcohol 0.7 ml/ml medicated pad (5 sources) alcohol swabs pa ds, medicated BD Alcohol Swabs Active methylPREDNISolone 4 mg oral tablet (5 sources) Corticosteroid Start: 10-28-19 Medrol 4 MG as directed Orally for 7 days October, Active mycophenolate mofetil 250 mg oral capsule (20 sources) Start: 08-08-19 take 1 capsule by mouth every twelve hours Mycophenolate Mofetil 250 mg Capsule Active 1000 MG PO Q12H August 08, 2019 12:00am Start: 08-08-2019 take 1000 mg by mout h every twelve hours Mycophenolate Mofetil Active 1000 MG PO Q12H August 08, 2019 1:00am take 4 capsules by m outh twice daily mycophenolate (CELLCEPT) 250 mg capsule 4 capsules Orally BID for 90 days Active oxyCODONE hydrochloride 5 mg oral tablet [...] 2 mg/dose (8 mg/3 mL) pen injector (5 sources) Start: 02-20-20 22 OZEMPIC 2 mg/dose (8 mg/3 mL) pen injector 02/19/2022 Active pen needle, diabetic (BD Anuja 2nd Gen Pen Needle) (3 sources) Start: 10-04-19 24 pen needle, diabetic (BD Anuja 2nd Gen Pen Needle) Active .Route October 03, 2023 11:00pm Start: 10-04-2023 pen needle, di abetic (BD Anuja 2nd Gen Pen Needle) Active .Route October 04, 2023 12:00am Start: 10-04-2023 pen needle, di abetic (BD Anuja 2nd Gen Pen Needle) Active .ROUTE October 04, 2023 12:00am rosuvastatin calcium 20 mg oral tablet (8 sources) HMG-CoA Reductase Inhibitor Start: 09-06-2024 take 1 tablet by mouth in the morning rosuvastatin (CRESTOR) 20 mg tablet Take 1 tablet (20 mg total) by mouth in the morning. 90 tablet 1 09/06/2024 Active Start: 06-19-2024 End: 09-06-2024 take 1 tablet by mouth in the morning rosuvastatin (CRESTOR) 20 mg tablet Take 1 tablet (20 mg total) by mouth in the morning. 90 tablet 1 07/17/2024 09/06/2024 Discontinued (Reorder) Start: 10-04-2023 End: 07-18-2024 take 1 tablet by mouth once daily Rosuvastatin 10 mg tablet Discontinued 10 MG PO Daily October 03, 2023 11:00pm July 18, 2024 10:13am saccharomyces boulardii 250 mg oral capsule (6 sources) Start: 04-17-2024 take 1 capsule by mouth once daily Saccharomyces boulardii (FLORASTOR) 250 mg capsule Indications: Diabetic polyneuropathy associated with type 2 diabetes mellitus (CMS-HCC) Take 1 capsule (250 mg total) by mouth Daily at 0300. 90 capsule 3 04/17/2024 Active Semaglutide (Ozempic) 2 mg/dose (8 mg/3 mL) pen injector (5 sources) Start: 02-23-2024 inject 2 mg by subcutaneous injection every week Semaglutide (Ozempic) 2 mg/dose (8 mg/3 mL) pen injector Active 2 MG SUBCUT every week February 23, 2024 9:50am Start: 02-23-2024 inject 2 mg by subcu taneous injection every week Semaglutide (Ozempic) 2 mg/dose (8 mg/3 mL) pen injector Active 2 MG SUBCUT every week February 23, 2024 10:50am Start: 10-04-2023 End: 02-23-2024 inject 2 mg by subcutaneous injection every week Semaglutide (Ozempic) 2 mg/dose (8 mg/3 mL) pen injector Discontinued MG SUBCUT October 03, 2023 11:00pm February 23, 2024 9:51am FreeTextSig: INJECT 2MG SUBCUTANEOUSLY ONCE WEEKLY; Note: Source Status: Taking; Refills: 3; Qty: 9 Milliliter; Provider: William Alegria ( ) Start: 10-04-2023 End: 02-23-2024 inject 2 mg [...] ( ) sertraline 100 mg oral tablet (9 sources) Serotonin Reuptake Inhibitor Start: 08-08-2019 sertraline (ZOLOFT) 100 mg tablet TAKE 1 TABLET DAILY 90 tablet 1 05/12/2023 Active tacrolimus 1 mg oral capsule (20 sources) Calcineurin Inhibitor Immunosuppressant Start: 08-08-2019 take 2 capsules by mouth once daily in the morning Tacrolimus 1 mg Capsule Active 2 MG PO Every morning August 08, 2019 12:00am Start: 08-08-2019 take 1 capsule by mo uth once daily at bedtime Tacrolimus 1 mg Capsule Active 1 MG PO Daily at bedtime August 08, 2019 12:00am Start: 08-08-2019 take 2 mg by mouth o nce daily in the morning Tacrolimus Active 2 MG PO Every morning August 08, 2019 1:00am traZODone hydrochloride 150 mg oral tablet (9 sources) Serotonin Reuptake Inhibitor Start: 09-06-2024 take 1 tablet by mouth once daily traZODone (DESYREL) 150 mg tablet Take 1 tablet (150 mg total) by mouth nightly. 90 tablet 1 09/06/2024 Active Start: 09-06-2024 take 1 tablet by nirali once daily traZODone (DESYREL) 150 mg tablet Take 1 tablet (150 mg total) by mouth nightly. 90 tablet 1 09/06/2024 Active Start: 06-19-2024 End: 09-04-2024 take 1 tablet by mouth once daily traZODone (DESYREL) 150 mg tablet Take 1 tablet (150 mg total) by mouth nightly. 90 tablet 1 07/17/2024 09/04/2024 Discontinued (Reorder) Start: 04-13-2024 End: 06-16-2024 take 1 tablet by mouth once daily traZODone (DESYREL) 150 mg tablet Take 1 tablet (150 mg total) by mouth nightly. 90 tablet 1 04/13/2024 06/16/2024 Discontinued (Reorder) Vitamin D3 2000 Unit (17 sources) take 1 capsule by mo [facility] once daily Vitamin D3 2000 Unit 1 capsule Orally Once a day Active Completed/Discontinued Medications Medication Drug Class(es) Dates Sig (Normalized) Sig (Original) acetaminophen 325 mg / HYDROcodone bitartrate 5 mg oral tablet (4 sources) Opioid Agonist Start: 08-21-2019 End: 02-23-2024 take 1 tablet by mouth every four to six hours as needed for pain Hydrocodone-Acetamin ophen (Zenda) 5-325 mg tablet Discontinued 1 - 2 TAB PO EVERY 4-6 HOURS as needed for Pain 11 10August 21, 2019 February 23, 2024 9:22am atorvastatin 40 mg oral tablet (20 sources) HMG-CoA Reductase Inhibitor Start: 08-08-2019 End: 10-04-2023 take 1 tablet by mouth once daily in the morning Atorvastatin 40 mg tablet Discontinued 40 MG PO Every morning August 08, 2019 12:00am October 04, 2023 9:36am baclofen 10 mg oral tablet (8 sources) gamma-Aminobutyr ic Acid-ergic Agonist Start: 05-08-2024 End: 08-10-2024 take 1 tablet by mouth three times daily baclofen (LIORESAL) 10 mg tablet Indications: Diabetic polyneuropathy associated with type 2 diabetes mellitus (CMS-HCC) Take 1 tablet (10 mg total) by mouth 3 (three) times a day. 270 tablet 1 05/08/2024 08/10/2024 Discontinued Start: 08-08-2019 End: 07-18-2024 take 1 tablet by mouth once daily at bedtime Baclofen 20 mg tablet Discontinued 20 MG PO Daily at bedtime August 08, 2019 12:00am July 18, 2024 10:11am calcium carbonate 1250 mg / cholecalciferol 200 unt oral tablet (4 sources) Vitamin D Start: 08-08-2019 End: 07-18-2024 take 1 tablet by mouth once daily in the morning Calcium Carbonate-Vitamin D3 500 mg(1,250mg) -200 unit tablet Discontinued 1 TAB PO Every morning August 08, 2019 12:00am July 18, 2024 10:12am 0.5 ml dulaglutide 3 mg/ml auto-injector (4 sources) GLP-1 Receptor Agonist Start: 08-08-2019 End: 10-04-2023 Dulaglutide 1.5 mg/0.5 mL pen injector Discontinued 1 DOSE SUBCUT every week August 08, 2019 12:00am October 04, 2023 9:37am fenofibrate 48 mg oral tablet (4 sources) Peroxisome Proliferator Receptor alpha Agonist Start: 08-08-2019 End: 10-04-2023 take 1 tablet by mouth once daily in the morning Fenofibrate Nanocrystallized 48 mg tablet Discontinued 48 MG PO Every morning August 08, 2019 12:00am October 04, 2023 9:37am flash glucose sensor (FreeStyle Sylvia 2 Sensor) (3 sources) Start: 10-04-2023 End: 07-18-2024 flash glucose sensor (FreeStyle Sylvia 2 Sensor) Discontinued .Route October 03, 2023 11:00pm July 18, 2024 10:01am Start: 10-04-2023 flash glucose sensor (FreeStyle Sylvia 2 Sensor) Active .Route October 04, 2023 12:00am Start: 10-04-2023 flash glucose sensor (FreeStyle Sylvia 2 Sensor) Active .ROUTE October 04, 2023 12:00am FreeStyle Sylvia 14 Day Reade r - (8 sources) Start: 08-29-2020 FreeStyle Libr e 14 Day Eagle - as directed Daily for 365 days E11.Aug, Not-Taking Start: 08-29-2020 FreeStyle Libr e 14 Day Eagle - as directed Daily for 365 days E11.21 Aug, Active FreeStyle Sylvia 14 Day Senso r - (8 sources) FreeStyle Sylvia 14 Day Sensor - as directed SQ change every 14 days Not-Taking FreeStyle Sylvia 14 Day Sensor - as directed SQ change every 14 days Active Insulin Aspart U-100 (Novolog Flexpen U-100 Insulin) 100 unit/mL (3 mL) insulin pen (10 sources) Start: 10-25-2023 End: 10-27-2023 Insulin Aspart U-100 (Novolo g Flexpen U-100 Insulin) 100 unit/mL (3 mL) insulin pen Discontinued 0 SUBCUT .COMPLEX 120 October 25, 2023 12:06pm October 27, 2023 4:46pm subcutaneously; FreeTextSig: INJECT 25, 30, 35 UNITS SUBCUTANEOUSLY BASED ON MEAL SIZE BEFORE MEALS. CORRECTIVE SCALE 1:10 BEFORE MEALS 3 TIMES A DAY (AT BEDTIME IF GREATER THAN 200 HALF DOSE) DIRECTED, UP TO 120 UNITS PER DAY.; Note: Source Status: Taking; Refills: 3; Qty: 120 Milliliter; Provider: William Alegria ( ) Start: 10-25-2023 End: 10-27-2023 Insulin Aspart U-100 (Novolo g Flexpen U-100 [...] 0 SUBCUT .COMPLEX 120 October 04, 2023 10:36am October 25, 2023 12:08pm subcutaneously; FreeTextSig: INJECT 25, 30, 35 UNITS [...] 0 SUBCUT .COMPLEX 120 August 17, 2023 4:11pm October 04, 2023 10:38am subcutaneously; FreeTextSig: INJECT 25, 30, 35 UNITS [...] Discontinued 0 SUBCUT .COMPLEX August 17, 2023 5:11pm October 04, 2023 [...] mL) insulin pen Active 0 SUBCUT .COMPLEX August 17, 2023 5:11pm subcutaneously; FreeTextSig: INJECT [...] Discontinued 0 SUBCUT .COMPLEX August 17, 2023 12:00am August 17, 2023 4:28pm subcutaneously; FreeTextSig: INJECT 25, 30, 35 UNITS [...] 120 Milliliter; Provider: William Alegria ( ) Insulin Aspart U-100 100 unit/mL (3 mL) insulin pen (2 sources) Start: 07-18-2024 End: 07-18-2024 Insulin Aspart U-100 100 uni t/mL (3 mL) insulin pen Discontinued SUBCUT July 18, 2024 12:00am July 18, 2024 10:13am Start: 08-08-2019 End: 08-17-2023 inject 1 dose by subcutaneous injection three times daily Insulin Aspart U-100 100 unit/mL (3 mL) insulin pen Discontinued 1 DOSE SUBCUT Three times daily August 08, 2019 12:00am August 17, 2023 4:05pm insulin aspart, human (20 sources) Insulin Analog [...] Three times daily August 08, 2019 12:00am NovoLOG FlexPen 100 UNIT/ML INJECT 25, 30, [...] ml insulin glargine 100 unt/ml pen injector (4 sources) Insulin Analog Start: 08-08-2019 End: 08-17-2023 inject 50 [IU] by subcutaneous injection twice daily Insulin Glargine 100 unit/mL (3 mL) insulin pen Discontinued 50 UNITS SUBCUT Twice daily August 08, 2019 12:00am August 17, 2023 4:08pm pioglitazone 15 mg oral tablet (4 sources) Peroxisome Proliferator Receptor alpha Agonist, Peroxisome Proliferator Receptor gamma Agonist, Thiazolidinedione Start: 08-08-2019 End: 10-04-2023 take 1 tablet by mouth once daily at bedtime Pioglitazone 15 mg tablet Discontinued 15 MG PO Daily at bedtime August 08, 2019 12:00am October 04, 2023 9:38am 0.25 mg, 0.5 mg dose 1.5 ml semaglutide 1.34 mg/ml pen injector (8 sources) Ozempic (0.25 or 0.5 MG/DOSE) 2 MG/1.5ML INJECT 0.5MG SUBCUTANEOUSLYONCE WEEKLY for 84 Not-Taking sulfamethoxazole 800 mg / trimethoprim 160 mg oral tablet (4 sources) Dihydrofolate Reductase Inhibitor Antibacterial, Sulfonamide Antimicrobial Start: 08-21-2019 End: 10-04-2023 take 1 tablet by mouth twice daily Sulfamethoxazole-Tri methoprim (Bactrim Ds) 800-160 mg tablet Discontinued 1 TAB PO Twice daily 10 August 20, 2019 11:00pm October 04, 2023 9:38am triamcinolone acetonide 40 mg/ml injectable suspension (20 sources) Corticosteroid Start: 07-22-2022 Kenalog-40 Jul, 40 mg Start: 07-22-2022 Kenalog-40 Jul, 20 mg Problems Active Problems Problem Classification Problem Date Documented Date Episodic/Chronic Administrative/socia l admission (20 sources) Dietary management surveillance; Translations: [Dietary counseling and surveillance] Onset: 08-05-2021 Resolved: 12-04-2021 Episodic Anxiety disorders (5 sources) Anxiety; Translations: [Anxiety disorder, unspecified] Onset: 05-18-2022 05-18-2022 Chronic Chronic kidney disease (10 sources) Kidney transplant status; Translations: [Kidney replaced by transplant] Onset: 08-05-2021 Resolved: 12-04-2021 Chronic Deficiency and other anemia (1 source) Anemia; Translations: [Anemia, unspecified] 06-16-2024 Episodic Diabetes mellitus with complications (20 sources) Disorder of kidney due to diabetes mellitus; Translations: [Type 2 diabetes mellitus with diabetic nephropathy] Onset: 01-11-2018 Resolved: 12-04-2021 Chronic Diabetes mellitus without complication (6 sources) Type 2 diabetes mellitus without complications; Translations: [Diabetes mellitus] Onset: 03-28-2013 05-18-2022 Chronic Disorders of lipid metabolism (20 sources) Hyperlipidemia; Translations: [Hyperlipidemia, unspecified] Onset: 03-28-2013 Resolved: 12-04-2021 Chronic Essential hypertension (20 sources) Hypertensive disorder; Translations: [Essential (primary) hypertension] Onset: 03-28-2013 Resolved: 12-04-2021 Chronic Genitourinary symptoms and ill-defined conditions (1 source) Proteinuria, unspecified Episodic Immunity disorders (6 sources) Immunosuppression; Translations: [Immunodeficiency, unspecified] Onset: 04-11-2013 05-18-2022 Chronic Menopausal disorders (17 sources) Menopause present; Translations: [Menopausal and female climacteric states] Chronic Nutritional deficiencies (20 sources) Vitamin D deficiency; Translations: [Vitamin D deficiency, unspecified] Onset: 08-05-2021 Resolved: 12-04-2021 Chronic Osteoarthritis (8 sources) Arthritis of hand; Translations: [Primary osteoarthritis, right hand] Chronic Osteoporosis (5 sources) Osteoporosis; Translations: [Age-related osteoporosis without current pathological fracture] Onset: 10-06-2017 05-18-2022 Chronic Other acquired deformities (20 sources) Spondylolisthesis; Translations: [Spondylolisthesis, lumbar region] Episodic Other acquired deformities (19 sources) Lumbar spondylolisthesis; Translations: [Spondylolisthesis, lumbar region] 08-10-2024 Episodic Other acquired deformities (1 source) Spondylolisthesis, lumbar region; Translations: [Spondylolisthesis, lumbar region] Onset: 08-10-2024 Episodic Other aftercare (20 sources) Long-term current use of insulin; 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] Episodic Other aftercare (7 sources) group home (current) use of insulin; Translations: [SKILLED NURSING CURRENT USE OF INSULIN] Onset: 08-05-2021 Resolved: [...] sources) Hypoglycemia, unspecified; Translations: [Hypoglycemia] Chronic Other injuries and conditions due to external causes (1 source) Retained plastic fragments; Translations: [Retained plastic fragments] Onset: 08-17-2024 Episodic Other nervous system disorders (17 sources) Carpal tunnel syndrome of right wrist; Translations: [Carpal tunnel syndrome, right upper limb] Chronic Other nervous system disorders (1 source) Carpal tunnel syndrome, right upper limb Chronic Other nervous system disorders (4 sources) Other specified mononeuropathies of bilateral lower limbs; Translations: [OTH SPEC MONONEUROPATH TRISTIAN LOW LIMB] Onset: 10-06-2022 Chronic Other nervous system disorders (2 sources) Other chronic pain; Translations: [OTHER CHRONIC PAIN] Onset: 05-18-2022 Chronic Other nervous system disorders (1 source) [...] metabolic disorders (2 sources) Body mass index 30+ - obesity; Translations: [Body mass index (BMI) 36.0-36.9, adult] 10-04-2023 Chronic Other nutritional; endocrine; and metabolic disorders (2 sources) Body mass index (BMI) 36.0-36.9, adult; Translations: [Body Mass Index 36.0-36.9, adult] 02-23-2024 Chronic Other nutritional; endocrine; and metabolic disorders (5 sources) Morbid obesity; Translations: [Morbid (severe) obesity [...] (1 source) Other specified postprocedural states Episodic Residual codes; unclassified (1 source) Pain, unspecified; Translations: [Pain, unspecified] Onset: 06-05-2024 Episodic Rheumatoid arthritis and related disease (1 source) Arthropathy of lumbar facet joint 08-10-2024 Chronic Spondylosis; intervertebral disc disorders; other back problems (12 sources) Spondylosis without myelopathy or radiculopathy, lumbar region; Translations: [Prolapsed lumbar intervertebral disc] Onset: 09-06-2015 Chronic Unclassified (3 sources) LOW BACK PAIN, UNSPECIFIED; Translations: [LOW BACK PAIN, UNSPECIFIED] Onset: 07-03-2022 Unclassified (1 source) Consult Onset: 08-10-2024 Unclassified (1 source) refill on medications Onset: 04-13-2024 Unclassified (1 source) Low back pain, unspecified; Translations: [Low back pain, unspecified] Onset: 08-09-2024 Past or Other Problems Problem Classification Problem Date Documented Da te Episodic/Chronic Cancer of kidney and renal pelvis (5 sources) Renal cell carcinoma; Translations: [Malignant neoplasm of unspecified kidney, except renal pelvis] Onset: 03-28-2013 Resolved: 05-19-2022 05-19-2022 Chronic Immunizations and screening for infectious disease (1 source) Encounter for immunization; Translations: [Encounter for immunization] Onset: 04-13-2024 Episodic Mood disorders (5 sources) Mood disorders Onset: 04-13-2024 Resolved: 07-13-2024 04-13-2024 Mycoses (5 sources) Onychomycosis; Translations: [Tinea unguium] Onset: 01-11-2018 05-18-2022 Episodic Other and unspecified benign neoplasm (5 sources) History of polyp of colon; Translations: [History of colonic polyps] Onset: 08-15-2020 03-14-2024 Episodic Residual codes; unclassified (5 sources) Insomnia; Translations: [Insomnia, unspecified] Onset: 05-18-2022 05-18-2022 Episodic Spondylosis; intervertebral disc disorders; other back problems (20 sources) Spinal stenosis, lumbar region without neurogenic claudication; Translations: [Intervertebral disc disorders with radiculopathy, lumbar region] Onset: 01-06-2022 Episodic Unclassified (1 source) LOW BACK PAIN, UNSPECIFIED; Translations: [LOW BACK PAIN, UNSPECIFIED] Onset: 09-24-2022 Unclassified (3 sources) Onset: 08-10-2024 08-10-2024 Results Test Name Value Interpretation Reference Range Facility ALBUMINon 08-17-2024 Albumin [Mass/Vol] 4.1 g/dL Normal 3.2-5.3 [facility] Comment on above: Performed By: #### C BC, 175-7, BMP, 18040-9, 7-1, 273-8, 45712-6 #### [facility] ([id number]) [address], [address] [place] [address] #### 21065-1 #### [facility] ([id number]) [address] [place] [address] 28401 BASIC METABOLIC PANLon 08-17 Anion gap [Moles/Vol] 10 mmol/L Normal 5-15 [facility] Comment on above: Performed By: #### David CASTRO, 1750-7, BMP, 96830-3, 2776-1, 2730-8, 14462-2 #### [facility] ([id number]) [address] [facility], [address] [place] [address] #### 01670-4 #### [facility] ([id number]) [address] [place] [address] 82120 Calcium [Mass/Vol] 8.9 mg/dL Normal 8.5-10.5 [facility] Comment on above: Performed By: #### David CASTRO, 1750-7, BMP, 50421-8, 2776-1, 2730-8, 72226-8 #### [facility] ([id number]) [address], [address] [place] [address] #### 78674-6 #### [facility] ([id number]) [address] [place] [address] 28122 Chloride [Moles/Vol] 100 mmol/L Normal 98-109 [facility] Comment on above: Performed By: #### David CASTRO, 1750-7, BMP, 08251-1, 7-1, 273-8, 64141-2 #### [facility] ([id number]) [address], [address] [place] [address] #### 65489-3 #### [facility] ([id number]) [address] [place] [address] 25512 CO2 [Moles/Vol] 27 mmol/L Normal 22-32 [facility] Comment on above: Performed By: #### C MATTHEW, 175-7, BMP, 09981-6, 2777-1, 2731-8, 21397-2 #### [facility] ([id number]) [address] [address] #### 36081-3 #### [facility] ([id number]) [address] [place] [address] 03158 Creatinine [Mass/Vol] 0.74 mg/dL Normal 0.40-1.00 [facility] Comment on above: Result Comment: METH OD TRACEABLE TO IDMS STANDARD Performed By: #### C MATTHEW, 1750-7, BMP, 15706-4, 2777-1, 2731-8, 94592-7 #### [facility] ([id number]) [address] [place] [address] #### 18651-7 #### [facility] ([id number]) [address] [place] [address] 35960 GFR/1.73 sq M.predicted among non-blacks MDRD (S/P/Bld) [Vol rate/Area] 88 mL/min/{1.73_m2} Normal >59 [facility] Comment on above: Result Comment: Reported eGFR is based on the CKD-EPI 2020 equation that does not use a race coefficient. Performed By: #### David CASTRO, 1751-7, BMP, 52199-3, 2777-1, 2731-8, 54272-8 #### [facility] ([id number]) [address], [address] [place] [address] #### 10036-8 #### [facility] ([id number]) [address] [place] [address] 73838 Glucose [Mass/Vol] 276 mg/dL High 65-99 [facility] Comment on above: Performed By: #### David CASTRO, 1750-7, BMP, 79436-5, 2777-1, 2731-8, 84505-1 #### [facility] ([id number]) [address], [address] [place] [address] #### 90047-9 #### [facility] ([id number]) [address] [place] [address] 09257 Potassium [Moles/Vol] 4.1 mmol/L Normal 3.5-5.0 [facility] Comment on above: Performed By: #### David CASTRO, 7, BMP, 41991-2, 2776-1, 2730-8, 12299-6 #### [facility] ([id number]) [address] [facility] [facility], [address] [place] [address] #### 53950-5 #### [facility] ([id number]) [address] [place] [address] 76951 Sodium [Moles/Vol] 137 mmol/L Normal 134-146 [facility] Comment on above: Performed By: #### David CASTRO, 7, BMP, 82439-2, 2776-1, 2730-8, 09537-5 #### [facility] ([id number]) [address] [facility], [address] [place] [address] #### 19177-6 #### [facility] ([id number]) [address] [place] [address] 12192 Urea nitrogen [Mass/Vol] 16 mg/dL Normal 5-27 [facility] Comment on above: Performed By: #### C BC, 175-7, BMP, 58052-6, 2777-1, 2731-8, 78484-9 #### [facility] ([id number]) [address], [address] [place] [address] #### 85552-9 #### [facility] ([id number]) [address] [place] [address] 73111 COMPLETE BLOOD COUNTon 08-17 Erythrocyte distribution width (RBC) [Ratio] 14.1 % Normal 11.5-15.0 [facility] Comment on above: Performed By: #### C BC, 175-7, BMP, 22027-2, 2777-1, 2731-8, 21448-5 #### [facility] ([id number]) [address], [address] [place] [address] #### 17094-6 #### [facility] ([id number]) [address] [place] [address] 11108 Hematocrit (Bld) [Volume fraction] 44.9 % Normal 35-47 [facility] Comment on above: Performed By: #### C BC, 175-7, BMP, 84055-1, 2777-1, 2731-8, 41129-5 #### [facility] ([id number]) [address], [address] [place] [address] #### 04238-4 #### [facility] ([id number]) [address] [place] [address] 70021 Hemoglobin (Bld) [Mass/Vol] 14.6 g/dL Normal 11.7-15.5 [facility] Comment on above: Performed By: #### C BC, 175-7, BMP, 26869-3, 2777-1, 2731-8, 38053-2 #### [facility] ([id number]) [address], [address] [place] [address] #### 09765-5 #### [facility] ([id number]) [address] [place] [address] 03617 MCH (RBC) [Entitic mass] 29.5 pg Normal 27-34 [facility] Comment on above: Performed By: #### David CASTRO, 175-7, BMP, 21594-1, 2777-1, 2731-8, 58357-7 #### [facility] ([id number]) [address] [facility], [address] [place] [address] #### 88864-7 #### [facility] ([id number]) [address] [place] [address] 86397 MCHC (RBC) [Mass/Vol] 32.5 g/dL Normal 32-36 [facility] Comment on above: Performed By: #### David CASTRO, 1750-7, BMP, 65889-2, 2776-1, 2730-8, 32236-0 #### [facility] ([id number]) [address] [facility], [address] [place] [address] #### 11283-3 #### [facility] ([id number]) [address] [place] [address] 67098 MCV (RBC) [Entitic vol] 91 fL Normal 80-100 [facility] Comment on above: Performed By: #### David CASTRO, 1750-7, BMP, 09543-0, 2776-1, 273-8, 48706-3 #### [facility] ([id number]) [address] [facility], [address] [place] [address] #### 80449-0 #### [facility] ([id number]) [address] [place] [address] 64909 Platelet mean volume (Bld) [Entitic vol] 11.0 fL Normal 7-12 [facility] Comment on above: Performed By: #### C BC, 1751-7, BMP, 62329-4, 2777-1, 2731-8, 59558-1 #### [facility] ([id number]) [address], [address] [place] [address] #### 14561-5 #### [facility] ([id number]) [address] [place] [address] 41559 Platelets (Bld) [#/Vol] 157 10*3/uL Normal 150-450 [facility] Comment on above: Performed By: #### C BC, 175-7, BMP, 87735-0, 2777-1, 273-8, 63534-5 #### [facility] ([id number]) [address], [address] [place] [address] #### 80711-6 #### [facility] ([id number]) [address] [place] [address] 03595 RBC COUNT 4.95 X10E12/L Normal 3.80-5.20 [facility] Comment on above: Performed By: #### C MATTHEW, 175-7, BMP, 89382-6, 2777-1, 273-8, 84826-2 #### [facility] ([id number]) [address], [address] [place] [address] #### 95030-8 #### [facility] ([id number]) [address] [place] [address] 59263 WBC (Bld) [#/Vol] 6.8 10*3/uL Normal 4.0-11.0 [facility] Comment on above: Performed By: #### C BC, 1751-7, BMP, 60779-2, 2777-1, 2731-8, 65024-2 #### [facility] ([id number]) [address], [address] [place] [address] #### 99391-9 #### [facility] ([id number]) [address] [place] [address] 93916 MAGNESIUMon 08-17-2024 Magnesium [Mass/Vol] 1.9 mg/dL Normal 1.8-2.6 [facility] Comment on above: Performed By: #### David CASTRO, 175-7, BMP, 60649-9, 2776-, 2730-8, 46574-1 #### [facility] ([id number]) [address] [facility], [address] [place] [address] #### 24212-3 #### [facility] ([id number]) [address] [place] [address] 40667 MICROALBUMIN - ALBUMIN:CREAT ININE URINE RATIOon 08-17-2024 ALB/CREAT RATIO 88.2 mg/g creat High 0.0-30.0 [facility] Comment on above: Performed By: #### David CASTRO, 1750-7, BMP, 56376-0, 2776-, 2730-8, 38742-6 #### [facility] ([id number]) [address] [facility], [address] [place] [address] #### 70660-8 #### [facility] ([id number]) [address] [place] [address] 17229 Albumin DL <= 20 mg/L (U) [Mass/Vol] 6.9 mg/dL High 0.0-1.9 [facility] Comment on above: Performed By: #### David CASTRO, 175-7, BMP, 04767-2, 2776-, 2730-8, 45876-2 #### [facility] ([id number]) [address] [facility], [address] [place] [address] #### 55834-0 #### [facility] ([id number]) [address] [place] [address] 13018 URINE CREAT 78.22 mg/dL Normal [facility] Comment on above: Performed By: #### C MATTHEW, 1751-7, BMP, 87675-0, 2777-1, 2731-8, 00019-3 #### [facility] ([id number]) [address] [facility], [address] [place] [address] #### 86804-4 #### [facility] ([id number]) [address] [place] [address] PHOSPHORUSon 08-17-2024 Phosphate [Mass/Vol] 3.3 mg/dL Normal 2.4-4.9 [facility] Comment on above: Performed By: #### C MATTHEW, 1751-7, BMP, 61173-7, 2777-1, 2731-8, 82515-0 #### [facility] ([id number]) [address], [address] [place] [address] #### 34474-7 #### [facility] ([id number]) [address] [place] [address] Tacrolimus trough (Bld) [Mas s/Vol]on 08-17-2024 Tacrolimus, B 6.2 ng/mL Normal 5.0-15.0 (Trough) [facility] Comment on above: Result Comment: NOTE ADDITIONAL INFORMATION Target steady-state trough concentrations vary depending on the type of transplant, concomitant immunosuppression, clinical/institutional protocols, and time post-transplant. Results should be interpreted in conjunction with this clinical information and any physical signs/symptoms of rejection/toxicity. Testing performed by Liquid Chromatography-Tandem Mass Spectrometry (LC-MS/MS). This test was developed and its performance characteristics determined by [facility] in a manner consistent with CLIA requirements. This test has not been cleared or approved by the U.S. Food and Drug Administration. Test Performed by: [facility] [address] [place] [address] Water Filterer: Buddy Ballard Ph.D.; CLIA# [id number] Performed By: #### C BC, 1751-7, BMP, 59989-0, 2777-1, 2731-8, 03443-6 #### [facility] ([id number]) [address] [place] [address] #### 76374-1 #### [facility] ([id number]) [address] [place] [address] 85808 URINALYSISon 08-17-2024 Bilirubin Ql (U) Negative Normal NEG [facility] Comment on above: Performed By: #### C MATTHEW, 1750-7, BMP, 60909-4, 2777-1, 273-8, 12598-8 #### [facility] ([id number]) [address] [facility], [address] [place] [address] #### 53466-7 #### [facility] ([id number]) [address] [place] [address] 81661 BLOOD/HGB Negative Normal NEG [facility] Comment on above: Performed By: #### David CASTRO, 1750-7, BMP, 55254-0, 2777-1, 273-8, 18757-8 #### [facility] ([id number]) [address] [place] [address] #### 97051-2 #### [facility] ([id number]) [address] [place] [address] 11776 Color (U) YELLOW Normal YELLOW [facility] Comment on above: Performed By: #### David BC, 175-7, BMP, 10936-4, 2777-1, 273-8, 02533-6 #### [facility] ([id number]) [address] [facility], [address] [place] [address] #### 43378-7 #### [facility] ([id number]) [address] [place] [address] 93188 Glucose Ql (U) >1000 Abnormal [facility] Comment on above: Performed By: #### C MATTHEW, 1751-7, BMP, 36835-0, 2777-1, 2731-8, 46295-9 #### [facility] ([id number]) [address], [address] [place] [address] #### 32216-8 #### [facility] ([id number]) [address] [place] [address] 19195 Ketones Ql (U) Negative Normal [facility] Comment on above: Performed By: #### C MATTHEW, 175-7, BMP, 94616-5, 2777-1, 2731-8, 98900-8 #### [facility] ([id number]) [address] [facility], [address] [place] [address] #### 11259-1 #### [facility] ([id number]) [address] [place] [address] 41289 Leukocyte esterase Test strip Ql (U) Negative Normal [facility] Comment on above: Result Comment: HIGH CONCENTRATIONS OF GLUCOSE MAY DECREASE THE REACTIVITY OF THE DIPSTICK LEUKOCYTE TEST PAD. Performed By: #### C MATTHEW, 175-7, BMP, 71552-1, 2777-1, 2731-8, 77305-7 #### [facility] ([id number]) [address], [address] [place] [address] #### 44861-4 #### [facility] ([id number]) [address] [place] [address] 61550 Nitrite Ql (U) Negative Normal [facility] Comment on above: Performed By: #### David CASTRO, 1751-7, BMP, 55745-5, 2777-1, 2731-8, 03579-2 #### [facility] ([id number]) [address] [place] [address], [address] [place] [address] #### 68930-1 #### [facility] ([id number]) [address] [place] [address] 06194 pH (U) 6.0 [pH] Normal 5.0-8.5 [facility] Comment on above: Performed By: #### David BC, 175-7, BMP, 88230-8, 2777-1, 2731-8, 16393-7 #### [facility] ([id number]) [address] [place] [address], [address] [place] [address] #### 71909-6 #### [facility] ([id number]) [address] [place] [address] 01293 Protein Ql (U) Trace Abnormal NEG [facility] Comment on above: Performed By: #### C BC, 1750-7, BMP, 93613-9, 2777-1, 2731-8, 28611-3 #### [facility] ([id number]) [address] [place] [address], [address] [place] [address] #### 31907-9 #### [facility] ([id number]) [address] [place] [address] 57960 R.B.CELLS 2 /hpf Normal 0-5 [facility] Comment on above: Performed By: #### C BC, 175-7, BMP, 59498-8, 2777-1, 2731-8, 23569-8 #### [facility] ([id number]) [address], [address] [place] [address] #### 47456-6 #### [facility] ([id number]) [address] [place] [address] 75008 Specific gravity (U) [Rel density] 1.044 High 1.003-1.035 [facility] Comment on above: Performed By: #### C MATTHEW, 1750-7, BMP, 42716-2, 7-1, 273-8, 79089-4 #### [facility] ([id number]) [address], [address] [place] [address] #### 62391-2 #### [facility] ([id number]) [address] [place] [address] 34198 SQUAMOUS EPITHELIUM 1 /hpf Normal 0-5 [facility] Comment on above: Performed By: #### C MATTHEW, 1750-7, BMP, 77500-9, 2776-1, 2730-8, 38630-8 #### [facility] ([id number]) [address] [place] [address] #### 25649-7 #### [facility] ([id number]) [address] [place] [address] 60870 TURBIDITY CLEAR Normal CLEAR [facility] Comment on above: Performed By: #### David CASTRO, 1750-7, BMP, 12926-8, 2776-, 2730-8, 03760-7 #### [facility] ([id number]) [address], [address] [place] [address] #### 57237-9 #### [facility] ([id number]) [address] [place] [address] 62172 Urobilinogen (U) [Mass/Vol] mg/dL Normal <1.1 [facility] Comment on above: Performed By: #### David CASTRO, 1750-7, BMP, 44058-2, 7-1, 2730-8, 87188-6 #### [facility] ([id number]) [address], [address] [place] [address] #### 33924-7 #### [facility] ([id number]) [address] [place] [address] W.B.CELLS 6 /hpf High 0-5 [facility] Comment on above: Performed By: #### C BC, 1751-7, BMP, 95810-4, 2777-1, 2731-8, 85310-9 #### [facility] ([id number]) [address] [place] [address] #### 58119-3 #### [facility] ([id number]) [address] [place] [address] XR LUMBAR SPINE AP, LATERAL, FLEXION AND EXTENSION ONLYon 08-09-2024 XR LUMBAR SPINE AP, LATERAL, FLEXION AND EXTENSION ONLY XR LUMBAR SPINE AP, LATERAL, FLEXION AND EXTENSION ONLY 4 views lumbar spine HISTORY: Chronic low back pain COMPARISON: MRI lumbar spine 05/18/2023 FINDINGS: Lumbar vertebral body heights are preserved. Severe diffuse facet arthropathy. Anterolisthesis of L3 on L4 measuring 5 mm and L4 on L5 measuring 6 mm. Multilevel disc related degenerative disease with disc height most prominent at L2-3 and L3-4. No pathologic change in alignment between flexion and extension. IMPRESSION: * Multilevel disc and facet related degenerative disease. 68 Finalized by Rusty Perez MD on 08/09/2024 1:45 PM Normal [facility] 36on 05-26-2024 36 LVM for pt to call clinic to schedule consult with Dr. Thompson for neurosurgical eval prior to SCS trial with pain mgmt . 30 min. No reps needed for appt. Letter sent to pt's home. Normal [facility] COMPREHENSIVE METABOLIC PANE Henry 04-13-2024 Albumin [Mass/Vol] 4.0 g/dL Normal 3.2-5.3 [facility] Comment on above: Performed By: #### C MP, 38997-1 #### [facility] ([id number]) [address], [address] [place] [address] ALP [Catalytic activity/Vol] 90 U/L Normal 39-130 [facility] Comment on above: Performed By: #### David VAZQUEZ, 57685-4 #### [facility] ([id number]) [address], [address] [place] [address] ALT [Catalytic activity/Vol] 13 U/L Normal 0-31 [facility] Comment on above: Performed By: #### David VAZQUEZ, 10880-2 #### [facility] ([id number]) [address], [address] [place] [address] Anion gap [Moles/Vol] 13 mmol/L Normal 5-15 [facility] Comment on above: Performed By: #### David VAZQUEZ, 16665-7 #### [facility] ([id number]) [address], [address] [place] [address] AST [Catalytic activity/Vol] 12 U/L Normal 0-41 [facility] Comment on above: Performed By: #### David VAZQUEZ, 42197-2 #### [facility] ([id number]) [address] [place] [address] Bilirubin [Mass/Vol] 0.4 mg/dL Normal 0.3-1.2 [facility] Comment on above: Performed By: #### David VAZQUEZ, 25571-8 #### [facility] ([id number]) [address], [address] [place] [address] Calcium [Mass/Vol] 9.1 mg/dL Normal 8.5-10.5 [facility] Comment on above: Performed By: #### David VAZQUEZ, 94111-0 #### [facility] ([id number]) [address] [place] [address] Chloride [Moles/Vol] 103 mmol/L Normal 98-109 [facility] Comment on above: Performed By: #### David VAZQUEZ 36136-3 #### [facility] ([id number]) [address], [address] [place] [address] CO2 [Moles/Vol] 25 mmol/L Normal 22-32 [facility] Comment on above: Performed By: #### David VAZQUEZ 66939-2 #### [facility] ([id number]) [address], [address] [place] [address] Creatinine [Mass/Vol] 0.55 mg/dL Normal 0.40-1.00 [facility] Comment on above: Result Comment: METH OD TRACEABLE TO IDMS STANDARD Performed By: #### David VAZQUEZ [id number] #### [facility] ([id number]) [address] [place] [address] eGFR (CKD-EPI) NON-RACE DEPENDENT >90 Normal >59 [facility] Comment on above: Result Comment: Reported eGFR is based on the CKD-EPI 2020 equation that does not use a race coefficient. Performed By: #### David VAZQUEZ 09785-5 #### [facility] ([id number]) [address], [address] [place] [address] Glucose [Mass/Vol] 231 mg/dL High 65-99 [facility] Comment on above: Performed By: #### David VAZQUEZ 26538-2 #### [facility] ([id number]) [address] [place] [address] Potassium [Moles/Vol] 3.8 mmol/L Normal 3.5-5.0 [facility] Comment on above: Performed By: #### David VAZQUEZ 70327-7 #### [facility] ([id number]) [address], [address] [place] [address] Protein [Mass/Vol] 6.9 g/dL Normal 6.0-8.0 [facility] Comment on above: Performed By: #### David VAZQUEZ 02755-8 #### [facility] ([id number]) [address], [address] [place] [address] Sodium [Moles/Vol] 141 mmol/L Normal 134-146 [facility] Comment on above: Performed By: #### David VAZQUEZ, 53994-1 #### [facility] ([id number]) [address], [address] [place] [address] Urea nitrogen [Mass/Vol] 11 mg/dL Normal 5-27 [facility] Comment on above: Performed By: #### David VAZQUEZ, 81721-8 #### [facility] ([id number]) [address], [address] [place] [address] Lipid 1996 panelon 4 Cholesterol [Mass/Vol] 206 mg/dL High 150-[address] [facility] Comment on above: Performed By: #### David VAZQUEZ, 57379-7 #### [facility] ([id number]) [address], [address] [place] [address] Cholesterol in HDL [Mass/Vol] 50 mg/dL Normal >39 [facility] Comment on above: Result Comment: HDL <40 mg/dL - High Risk HDL > or = 40mg/dL- Desirable HDL >60 mg/dL - Negative Risk Performed By: #### David VAZQUEZ, 88834-4 #### [facility] ([id number]) [address], [address] [place] [address] Cholesterol in LDL [Mass/Vol] 91 mg/dL Normal <130 [facility] Comment on above: Result Comment: LDL <100 mg/dL - Desirable LDL >160 mg/dL - High Risk Performed By: #### David VAZQUEZ, 19428-8 #### [facility] ([id number]) [address], [address] [place] [address] Cholesterol in VLDL [Mass/Vol] 65 mg/dL High 0-30 [facility] Comment on above: Performed By: #### David VAZQUEZ, 42368-3 #### [facility] ([id number]) [address], [address] [place] [address] CHOLESTEROL:HDL 4.1 Normal 1.0-5.0 [facility] Comment on above: Performed By: #### David VAZQUEZ, 90063-9 #### [facility] ([id number]) [address], [address] [place] [address] Triglyceride [Mass/Vol] 326 mg/dL High 27-150 P [facility] Comment on above: Performed By: #### David VAZQUEZ, 14251-2 #### [facility] ([id number]) [address], [address] [place] [address] ALBUMINon 12-17-2023 Albumin [Mass/Vol] 3.9 g/dL Normal 3.2-5.3 [facility] Comment on above: Performed By: #### David CASTRO, 175-7, BMP, 55620-0, 2777-1, 2731-8, 08154-5 #### [facility] ([id number]) [address], [address] [place] [address] #### 53831-4 #### [facility] ([id number]) [address] [place] [address], [place] [address] BASIC METABOLIC PANLon 12-16 Anion gap [Moles/Vol] 11 mmol/L Normal 5-15 [facility] Comment on above: Performed By: #### David CASTRO, 1751-7, BMP, 67672-0, 2777-1, 2731-8, 55526-2 #### [facility] ([id number]) [address] [facility] [place] [address] #### 37685-5 #### [facility] ([id number]) [address] [place] [address] Calcium [Mass/Vol] 9.1 mg/dL Normal 8.5-10.5 [facility] Comment on above: Performed By: #### C BC, 1751-7, BMP, 54233-1, 2777-1, 2731-8, 95264-3 #### [facility] ([id number]) [address] [facility] [facility] [place] [address] #### 87149-0 #### [facility] ([id number]) [address] [place] [address] Chloride [Moles/Vol] 103 mmol/L Normal 98-109 [facility] Comment on above: Performed By: #### C BC, 175-7, BMP, 49742-0, 2777-1, 273-8, 88399-2 #### [facility] ([id number]) [address] [facility] [facility] [place] [address] #### 89599-2 #### [facility] ([id number]) [address] [place] [address] CO2 [Moles/Vol] 28 mmol/L Normal 22-32 [facility] Comment on above: Performed By: #### C BC, 1751-7, BMP, 34578-9, 2777-1, 2731-8, 09244-0 #### [facility] ([id number]) [address] [facility] [facility] [place] [address] #### 49220-7 #### [facility] ([id number]) [address] [place] [address] Creatinine [Mass/Vol] 0.63 mg/dL Normal 0.40-1.00 [facility] Comment on above: Result Comment: METH OD TRACEABLE TO IDMS STANDARD Performed By: #### C MATTHEW, 1750-7, BMP, 99733-1, 7-1, 2730-8, 76115-5 #### [facility] ([id number]) [address] [place] [address] #### 32593-2 #### [facility] ([id number]) [address] [place] [address] eGFR (CKD-EPI) NON-RACE DEPENDENT >90 Normal >59 [facility] Comment on above: Result Comment: Reported eGFR is based on the CKD-EPI 2020 equation that does not use a race coefficient. Performed By: #### C MATTHEW, 7, SHAKILA, 15304-3, 2776-, 2730-8, 21638-3 #### [facility] ([id number]) [address] [facility] [place] [address] #### 73378-1 #### [facility] ([id number]) [address] [place] [address] Glucose [Mass/Vol] 166 mg/dL High 65-99 [facility] Comment on above: Performed By: #### C MATTHEW, 7, SHAKILA, 26919-7, 2776-, 2730-8, 92132-8 #### [facility] ([id number]) [address] [facility] [place] [address] #### 29614-9 #### [facility] ([id number]) [address] [place] [address] Potassium [Moles/Vol] 3.7 mmol/L Normal 3.5-5.0 [facility] Comment on above: Performed By: #### David CASTRO, 1750-7, BMP, 21001-3, 2776-1, 273-8, 70043-8 #### [facility] ([id number]) [address] [facility] [address] [place] [address] #### 29039-5 #### [facility] ([id number]) [address] [place] [address] Sodium [Moles/Vol] 142 mmol/L Normal 134-146 [facility] Comment on above: Performed By: #### C BC, 175-7, BMP, 09802-3, 7-1, 273-8, 76193-8 #### [facility] ([id number]) [address] [address] #### 09456-1 #### [facility] ([id number]) [address] [place] [address] Urea nitrogen [Mass/Vol] 12 mg/dL Normal 5-27 [facility] Comment on above: Performed By: #### C BC, 1750-7, BMP, 55183-6, 2776-1, 2730-8, 75401-2 #### [facility] ([id number]) [address] [facility] [address] [place] [address] #### 51154-1 #### [facility] ([id number]) [address] [place] [address] COMPLETE BLOOD COUNTon 12-16 Erythrocyte distribution width (RBC) [Ratio] 13.7 % Normal 11.5-15.0 [facility] Comment on above: Performed By: #### C BC, 175-7, BMP, 38598-9, 2776-1, 2730-8, 08015-5 #### [facility] ([id number]) [address] [facility] [facility] [place] [address] #### 51368-2 #### [facility] ([id number]) [address] [place] [address] Hematocrit (Bld) [Volume fraction] 44.8 % Normal 35-47 [facility] Comment on above: Performed By: #### C BC, 1750-7, BMP, 49869-9, 2777-1, 1-8, 88998-6 #### [facility] ([id number]) [address] [place] [address], [address] [place] [address] #### 34574-7 #### [facility] ([id number]) [address] [place] [address] Hemoglobin (Bld) [Mass/Vol] 14.5 g/dL Normal 11.7-15.5 [facility] Comment on above: Performed By: #### C MATTHEW, 1750-12, BMP, 74046-9, 2776-1, 2730-8, 59808-7 #### [facility] ([id number]) [address] [place] [address], [address] [place] [address] #### 32713-9 #### [facility] ([id number]) [address] [place] [address] MCH (RBC) [Entitic mass] 29.1 pg Normal 27-34 [facility] Comment on above: Performed By: #### C MATTHEW, 1750-12, BMP, 23737-1, 2776-1, 2730-8, 37691-4 #### [facility] ([id number]) [address] [facility], [address] [place] [address] #### 18893-2 #### [facility] ([id number]) [address] [place] [address] MCHC (RBC) [Mass/Vol] 32.3 g/dL Normal 32-36 [facility] Comment on above: Performed By: #### David BC, 1750-7, BMP, 33747-5, 2777-1, 2731-8, 07616-1 #### [facility] ([id number]) [address], [address] [place] [address] #### 33086-6 #### [facility] ([id number]) [address] [place] [address] MCV (RBC) [Entitic vol] 90 fL Normal 80-100 [facility] Comment on above: Performed By: #### C BC, 175-7, BMP, 16442-1, 2776-, 2730-8, 18344-8 #### [facility] ([id number]) [address], [address] [place] [address] #### 96814-3 #### [facility] ([id number]) [address] [place] [address] Platelet mean volume (Bld) [Entitic vol] 11.3 fL Normal 7-12 [facility] Comment on above: Performed By: #### C BC, 1750-7, BMP, 12957-9, 2776-, 2730-8, 30417-7 #### [facility] ([id number]) [address], [address] [place] [address] #### 38079-0 #### [facility] ([id number]) [address] [place] [address] Platelets (Bld) [#/Vol] 132 10*3/uL Low 150-450 [facility] Comment on above: Performed By: #### C BC, 175-7, BMP, 80779-6, 2776-, 2730-8, 53284-7 #### [facility] ([id number]) [address], [address] [place] [address] #### 93983-8 #### [facility] ([id number]) [address] [place] [address] RBC COUNT 4.97 X10E12/L Normal 3.80-5.20 [facility] Comment on above: Performed By: #### C MATTHEW, 1750-7, BMP, 14764-9, 7-1, 2730-8, 52304-7 #### [facility] ([id number]) [address], [address] [place] [address] #### 51155-8 #### [facility] ([id number]) [address] [place] [address] WBC (Bld) [#/Vol] 5.3 10*3/uL Normal 4.0-11.0 [facility] Comment on above: Performed By: #### David CASTRO, 1750-12, SHAKILA, 23840-1, 2776-1, 2730-8, 79805-6 #### [facility] ([id number]) [address] [place] [address] #### 27481-7 #### [facility] ([id number]) [address] [place] [address] MAGNESIUMon 12-17-2023 Magnesium [Mass/Vol] 1.8 mg/dL Normal 1.8-2.6 [facility] Comment on above: Performed By: #### David CASTRO, 1750-12, SHAKILA, 41023-8, 2776-, 2730-8, 03326-8 #### [facility] ([id number]) [address], [address] [place] [address] #### 16465-2 #### [facility] ([id number]) [address] [place] [address] MICROALBUMIN - ALBUMIN:CREAT ININE URINE RATIOon 12-17-2023 ALB/CREAT RATIO 190.9 mg/g creat High 0.0-30.0 [facility] Comment on above: Performed By: #### MERRICK [place] #### [facility] ([id number]) [address], [address] [place] [address] Albumin DL <= 20 mg/L (U) [Mass/Vol] 44.1 mg/dL High 0.0-1.9 [facility] Comment on above: Performed By: #### MERRICK [place] #### [facility] ([id number]) [address], [address] [place] [address] URINE CREAT 231.07 mg/dL Normal [facility] Comment on above: Performed By: #### MERRICK [place] #### [facility] ([id number]) [address] [place] [address] PHOSPHORUSon 12-17-2023 Phosphate [Mass/Vol] 3.0 mg/dL Normal 2.4-4.9 [facility] Comment on above: Performed By: #### C MATTHEW, 1751-7, BMP, 67058-4, 2777-1, 2731-8, 88698-0 #### [facility] ([id number]) [address] [place] [address] #### 80166-4 #### [facility] ([id number]) [address] [place] [address] Parathyrin.intact [Mass/Vol] on 12-17-2023 PTH INTACT 50 pg/mL Normal 12-88 [facility] Comment on above: Performed By: #### C BC, 1751-7, BMP, 06354-5, 2777-1, 2731-8, 32283-6 #### [facility] ([id number]) [address], [address] [place] [address] #### 05290-2 #### [facility] ([id number]) [address] [place] [address] Tacrolimus trough (Bld) [Mas s/Vol]on 12-17-2023 Tacrolimus, B 2.9 ng/mL Low 5.0-15.0 (Trough) [facility] Comment on above: Result Comment: NOTE ADDITIONAL INFORMATION Target steady-state trough concentrations vary depending on the type of transplant, concomitant immunosuppression, clinical/institutional protocols, and time post-transplant. Results should be interpreted in conjunction with this clinical information and any physical signs/symptoms of rejection/toxicity. Testing performed by Liquid Chromatography-Tandem Mass Spectrometry (LC-MS/MS). This test was developed and its performance characteristics determined by [facility] in a manner consistent with CLIA requirements. This test has not been cleared or approved by the U.S. Food and Drug Administration. Test Performed by: [facility] [address] [place] [address] Water Filterer: Buddy Ballard Ph.D.; CLIA# [id number] Performed By: #### C BC, 1751-7, BMP, 16366-7, 2777-1, 2731-8, 71743-3 #### [facility] ([id number]) [address] [facility] [place] [address] #### 57953-5 #### [facility] ([id number]) [address] [place] [address] URINALYSISon 12-17-2023 Bilirubin Ql (U) Negative Normal NEG [facility] Comment on above: Performed By: #### MERRICK [place] #### [facility] ([id number]) [address] [facility] [place] [address] BLOOD/HGB Negative Normal NEG [facility] Comment on above: Performed By: #### MERRICK [place] #### [facility] ([id number]) [address] [facility] [place] [address] CA OXALATE CRYSTALS PRESENT Abnormal NONE [facility] Comment on above: Performed By: #### MERRICK [place] #### [facility] ([id number]) [address] [place] [address] Color (U) YELLOW Normal YELLOW [facility] Comment on above: Performed By: #### MERRICK [place] #### [facility] ([id number]) [address] [place] [address] Glucose Ql (U) 200 mg/dL Abnormal NEG [facility] Comment on above: Performed By: #### MERRICK [place] #### [facility] ([id number]) [address] [place] [address] Ketones Ql (U) Negative Normal NEG [facility] Comment on above: Performed By: #### MERRICK [place] #### [facility] ([id number]) [address] [place] [address] Leukocyte esterase Test strip Ql (U) Negative Normal NEG [facility] Comment on above: Performed By: #### MERRICK [place] #### [facility] ([id number]) [address] [place] [address] MUCOUS PRESENT Abnormal NONE [facility] Comment on above: Performed By: #### MERRICK [place] #### [facility] ([id number]) [address] [place] [address] Nitrite Ql (U) Negative Normal NEG [facility] Comment on above: Performed By: #### MERRICK [place] #### [facility] ([id number]) [address] [place] [address] pH (U) 6.0 [pH] Normal 5.0-8.5 [facility] Comment on above: Performed By: #### MERRICK [place] #### [facility] ([id number]) [address] [place] [address] Protein Ql (U) 200 mg/dL Abnormal NEG [facility] Comment on above: Performed By: #### Linus Macdonald, MALMAXIMILIAN #### [facility] ([id number]) [address] [place] [address] R.B.CELLS <1 Normal 0-5 [facility] Comment on above: Performed By: #### Linus Macdonald, MERRICK #### [facility] ([id number]) [address] [place] [address] Specific gravity (U) [Rel density] 1.034 Normal 1.003-1.035 [facility] Comment on above: Performed By: #### MERRICK [place] #### [facility] ([id number]) [address] [place] [address] SQUAMOUS EPITHELIUM <1 Normal 0-5 [facility] Comment on above: Performed By: #### MERRICK [place] #### [facility] ([id number]) [address] [place] [address] TURBIDITY HAZY Abnormal CLEAR [facility] Comment on above: Performed By: #### MERRICK Palma #### [facility] ([id number]) [address] [place] [address] Urobilinogen (U) [Mass/Vol] mg/dL Normal <1.1 [facility] Comment on above: Performed By: #### MERRICK Palma #### [facility] ([id number]) [address] [place] [address] W.B.CELLS 4 /hpf Normal 0-5 [facility] Comment on above: Performed By: #### MERRICK Palma #### [facility] ([id number]) [address] [place] [address], [address] [place] [address] Vitamin D+Metabolites [Mass/ Vol]on 12-17-2023 VITAMIN D 25 HYD TOT 23.6 ng/mL Low 30-100 [facility] Comment on above: Result Comment: Vitamin D status 25 [place] Vitamin D Deficiency <20 ng/mL Insufficiency 20-29 ng/mL Sufficiency 30-100 ng/mL Toxicity >100 ng/mL NOTE: A pediatric reference range has not been established by the fabrication lead of this kit. The [place] [employer] recommends a Vitamin D level of = or >20ng/mL in infants and children. Performed By: #### C , [address]51-[address], [facility], 56750-1, 2777-1, 2731-8, 17335-1 #### [facility] ([id number]) [address] [place] [address], [address] [place] [address] #### 83092-8 #### [facility] ([id number]) [address] [place] [address], [place] [address] A1C HEMOGLOBINon 05-13-2023 HbA1c (Bld) [Mass fraction] 8.4 % [employer] Other Glucose - FINGER STICKon Glucose [Mass/Vol] 167 mg/dL [facility] [employer] [facility] Other HbA1c (Bld) [Mass fraction]o n 05-13-2023 A1C HEMOGLOBIN [employer] Other A1C HEMOGLOBINon 01-21-2023 HbA1c (Bld) [Mass fraction] 8.1 % [employer] [facility] Other Glucose - FINGER STICKon Glucose [Mass/Vol] 117 mg/dL [facility] [facility] Other HbA1c (Bld) [Mass fraction]o n 01-21-2023 A1C HEMOGLOBIN [employer] Other POINT OF CARE GLUCOSEon 09-13 Glucose [Mass/Vol] 185 mg/dL Critically high 74-106 [facility] Comment on above: Performed By: #### P OCGLUC #### [facility] [address] [address] [address] Payam Frazier XR hand RT min 3V*on 023 XR hand RT min 3V* [facility] [address] [address] Other XR hand RT min 3V* [facility] [address] Other XR hand RT min 3V* [address] [place] [address] Other XR hand RT min 3V* [place] [address] Other XR hand RT min 3V* XRay Report [employer] Other XR hand RT min 3V* Signed [employer] Other XR hand RT min 3V* Patient: Lisy Solis MR#: [id number] [address] [address] Other XR hand RT min 3V* [address] Other XR hand RT min 3V* : 1955 Acct:[id number] [employer] [address] Other XR hand RT min 3V* Age/Sex: 66 / F ADM Date: 07/22/[address] Other XR hand RT min 3V* Loc: SOXD Room: Type: [facility] [employer] [address] Other XR hand RT min 3V* Attending Dr: Sara Adhikari MD [employer] [address] Other XR hand RT min 3V* Copies to: Sara Adhikari MD [employer] [address] Other XR hand RT min 3V* Ordering Provider: Sara Adhikari MD [employer] [address] Other XR hand RT min 3V* Date of Service: 07/22/[address] Other XR hand RT min 3V* XR/XR hand RT min 3V*: PAIN [employer] [facility] Other XR hand RT min 3V* 4 viewsright hand plain film [employer] [address] Other XR hand RT min 3V* COMPARISON:08/01/[address] Other XR hand RT min 3V* HISTORY:Right hand pain. Mass in the fourth digit [employer] Other XR hand RT min 3V* Moderate interphalangeal degeneration. No bony lesion. Adequate bony alignment. No fracture. No soft [employer] Other XR hand RT min 3V* tissue calcification. [employer] Other XR hand RT min 3V* XR/XR hand RT min 3V* [employer] [address] Other XR hand RT min 3V* IMPRESSION:Similar degenerative change. [employer] [facility] Other XR hand RT min 3V* Impression dictated by: Roberto Pritchard M.D.07/22/2022 4:[address] Other XR hand RT min 3V* Dictation Location: [place] [address] [address] Other XR hand RT min 3V* Transcribed By: ZEHRA 07/22/22 [facility] [employer] [address] Other XR hand RT min 3V* Dictated By: Roberto Pritchard DO 07/22/22 [facility] [employer] [address] Other XR hand RT min 3V* Signed By: [employer] Other XR hand RT min 3V* 07/22/22 1626 [employer] Other A1C HEMOGLOBINon 07-14-2022 HbA1c (Bld) [Mass fraction] 7.9 % [employer] [facility] Other Glucose - FINGER STICKon Glucose [Mass/Vol] 164 mg/dL [employer] [address] Other HbA1c (Bld) [Mass fraction]o n 07-14-2022 A1C HEMOGLOBIN [facility] [employer] Other A1C HEMOGLOBINon 03-11-2022 HbA1c (Bld) [Mass fraction] 8.0 % [employer] [address] Other Albumin [Mass/volume] in Ser um or PlasmaOrdered By: Tondra Mapus on 03-11-2022 Albumin [Mass/Vol] 3.8 g/dL 3.2-5.5 [facility] Bilirubin.total [Mass/volume ] in Serum or PlasmaOrdered By: Tondra Mapus on 03-11-2022 Bilirubin [Mass/Vol] 0.5 mg/dL 0.3-1.2 [facility] Calcium [Mass/volume] in Ser um or PlasmaOrdered By: Tondra Mapus on 03-11-2022 Calcium [Mass/Vol] 9.2 mg/dL 8.2-10.2 [facility] Carbon dioxide, total [Moles /volume] in Serum or PlasmaOrdered By: Tondra Mapus on 03-11-2022 CO2 [Moles/Vol] 24.7 mmol/L 22.0-30.0 [facility] Comprehensive Metabolic Pane ehnry 03-11-2022 Albumin [Mass/Vol] 3.761416 g/dL Normal 3.2-5.5 g/dL [facility] [employer] Other ALT [Catalytic activity/Vol] 23 U/L Normal 10-60 U/L [employer] [address] Other Bilirubin [Mass/Vol] 0.2603669 mg/dL Normal 0.3- 1.2 mg/dL [employer] [address] Other Calcium [Mass/Vol] 9.0717070 mg/dL Normal 8.2-10 .2 mg/dL [employer] [address] Other CO2 [Moles/Vol] 24.40888035 mmol/L Normal 22.0-3 0.0 mmol/L [employer] [address] Other Creatinine [Mass/Vol] 0.77991989 mg/dL Normal 0. 44-1.03 mg/dL [employer] [address] Other Potassium [Moles/Vol] 4.40286205 mmol/L Normal 3 .5-5.1 mmol/L [employer] [address] Other Protein [Mass/Vol] 6.876045 g/dL Normal 6.1-7.9 g/dL [facility] [employer] Other Comprehensive Metabolic Panel > [address] Other Comprehensive Metabolic Panel 2.5 g/dL [employer] [address] Other Comprehensive Metabolic Pane lOrdered By: Airam Thomas on 03-11-2022 Albumin/Globulin [Mass ratio] 1.5 {ratio} [facility] ALP [Catalytic activity/Vol] 102 U/L 32-92 [facility] AST [Catalytic activity/Vol] 20 U/L 10-42 [facility] Chloride [Moles/Vol] 102 mmol/L 95-114 [facility] Glucose [Mass/Vol] 138 mg/dL 70-100 [facility] Comment on above: ADA recommended refe rence rangeRandom Glucose Reference Range is dependent on time and content of last meal. Glucose of more than 200 mg/dL in a nonstressed, ambulatory subject supports the diagnosis of Diabetes Mellitus. Sodium [Moles/Vol] 139 mmol/L 136-146 [facility] Urea nitrogen [Mass/Vol] 13 mg/dL 9-23 [facility] Creatinine and Glomerular fi ltration rate.predicted panel (S/P/Bld)Ordered By: Airam Thomas on 03-11-2022 Creatinine [Mass/Vol] 0.60 mg/dL 0.44-1.03 [facility] Estimated glomerular filtrat ion rate (GFR) non- AmericanOrdered By: Airam Thomas on 03-11-2022 GFR/1.73 sq M.predicted among non-blacks MDRD (S/P/Bld) [Vol rate/Area] > 60 mL/Min [facility] Globulin Calc (S) [Mass/Vol] Ordered By: Airam Thomas on 03-11-2022 Globulin (S) [Mass/Vol] 2.5 g/dL F [facility] Glucose - FINGER STICKon Glucose [Mass/Vol] 158 mg/dL [facility] Other HbA1c (Bld) [Mass fraction]o n 03-11-2022 A1C HEMOGLOBIN [facility] [employer] Other No Panel InformationOrdered By: Airam Thomas on 03-11-2022 Estimated GFR () > 60 mL/Min [facility] Comment on above: GFR estimated refere nce range: According to KDOQI guidelines, <60 ml/min/1.73m2 is sufficient to diagnose a patient with chronic kidney disease. Pharmacy Creatinine Clearance (Chem N/A [facility] Potassium [Moles/volume] in Serum or PlasmaOrdered By: Airam Thomas on 03-11-2022 Potassium [Moles/Vol] 4.1 mmol/L 3.5-5.1 [facility] Protein [Mass/volume] in Ser um or PlasmaOrdered By: Airam Thomas on 03-11-2022 Protein [Mass/Vol] 6.3 g/dL 6.1-7.9 [facility] Serum or plasma alanine ramsey otransferase measurement without P-5'-P (enzymatic activiOrdered By: Airam Thomas on 03-11-2022 ALT No additional P-5'-P [Catalytic activity/Vol] 23 U/L 10-60 [facility] Serum or plasma anion gap de terminationOrdered By: Airam Thomas on 03-11-2022 Anion gap [Moles/Vol] 16.4 mmol/L 6.0-15.0 [facility] POINT OF CARE GLUCOSEon -2 Glucose [Mass/Vol] 148 mg/dL Critically high 74-106 [facility] Comment on above: Performed By: #### P OCGLUC #### [facility] [address] [address] [address] Payam Frazier A1C HEMOGLOBINon 12-04-2021 HbA1c (Bld) [Mass fraction] 8.4 % [facility] Other Glucose - FINGER STICKon Glucose [Mass/Vol] 101 mg/dL [facility] [address] Other HbA1c (Bld) [Mass fraction]o n 12-04-2021 A1C HEMOGLOBIN [employer] Other A1C HEMOGLOBINon 08-05-2021 HbA1c (Bld) [Mass fraction] 7.9 % [facility] Other Glucose - FINGER STICKon Glucose [Mass/Vol] 158 mg/dL [facility] [address] Other HbA1c (Bld) [Mass fraction]o n 08-05-2021 A1C HEMOGLOBIN [employer] Other Vital Signs Date Time Vital Sign Value Performing Clinician Facility 08-10-2024 13:24-0500 Body height 167.6 cm Elen Sonnyrgler HEATER ROOM HELPER-COASTAL AND ESTUARY SPECIALIST Work Phone: [facility] [employer] 08-10-2024 13:24-0500 Body mass index (BMI) [Ratio] 32.44 kg/m2 Elen Yergler HEATER ROOM HELPER-COASTAL AND ESTUARY SPECIALIST Work Phone: [facility] [employer] [facility] 08-10-2024 13:24-0500 Body weight 91.17 kg Elen Yergler HEATER ROOM HELPER-COASTAL AND ESTUARY SPECIALIST [facility] 08-10-2024 13:24-0500 Diastolic blood pressure 68 mm[Hg] Elen Yergler HEATER ROOM HELPER-COASTAL AND ESTUARY SPECIALIST Work Phone: [facility] 08-10-2024 13:24-0500 Heart rate 69 /min Elen Yergler HEATER ROOM HELPER-COASTAL AND ESTUARY SPECIALIST Work Phone: [facility] 08-10-2024 13:24-0500 Systolic blood pressure 108 mm[Hg] Elen Archer APRN-COASTAL AND ESTUARY SPECIALIST Work Phone: [facility] 07-18-2024 10:10-0500 Body height 162.56 cm [facility] 07-18-2024 10:10-0500 Body mass index (BMI) [Ratio] 34.4 kg/m2 [facility] 07-18-2024 10:10-0500 Body weight 90.94 kg [facility] 07-18-2024 10:10-0500 Diastolic blood pressure 73 mm[Hg] [facility] 07-18-2024 10:10-0500 Heart rate 63 /min [facility] 07-18-2024 10:10-0500 Respiratory rate 18 /min [facility] 07-18-2024 10:10-0500 SaO2% (BldA) [Mass fraction] 95 % [facility] 07-18-2024 10:10-0500 Systolic blood pressure 129 mm[Hg] [facility] 02-23-2024 10:21-0400 Diastolic blood pressure 71 mm[Hg] [facility] 02-23-2024 10:21-0400 Systolic blood pressure 139 mm[Hg] [facility] 02-23-2024 10:13-0400 Body height 162.56 cm [facility] 02-23-2024 10:13-0400 Body mass index (BMI) [Ratio] 36.4 kg/m2 [facility] 02-23-2024 10:13-0400 Body weight 96.3 kg [facility] 02-23-2024 10:13-0400 Heart rate 68 /min [facility] 02-23-2024 10:13-0400 Respiratory rate 18 /min [facility] 02-23-2024 10:13-0400 SaO2% (BldA) [Mass fraction] 98 % [facility] 10-04-2023 10:32-0400 Body height 162.56 cm [facility] 10-04-2023 10:32-0400 Body mass index (BMI) [Ratio] 36.6 kg/m2 [facility] 10-04-2023 10:32-0400 Body weight 96.61 kg [facility] 10-04-2023 10:32-0400 Diastolic blood pressure 80 mm[Hg] [facility] 10-04-2023 10:32-0400 Heart rate 60 /min [facility] 10-04-2023 10:32-0400 Respiratory rate 18 /min [facility] 10-04-2023 10:32-0400 SaO2% (BldA) [Mass fraction] 97 % [facility] 10-04-2023 10:32-0400 Systolic blood pressure 133 mm[Hg] [facility] 05-13-2023 10:15-0500 Body height 162.56 cm Tondra Mapus Other [facility] 05-13-2023 10:15-0500 Body mass index (BMI) [Ratio] 37.95 kg/m2 Tondra Mapus Other [facility] Other 05-13-2023 10:15-0500 Body weight 100.29 kg Tondra Mapus Other [facility] [address] Other 05-13-2023 10:15-0500 Body weight 100.28 kg [facility] 05-13-2023 10:15-0500 Diastolic blood pressure 77 mm[Hg] Tondra Mapus Other [facility] 05-13-2023 10:15-0500 Respiratory rate 18 /min Tondra Mapus Other [facility] [address] Other 05-13-2023 10:15-0500 SaO2% (BldA) [Mass fraction] 95 % Tondra Mapus Other [facility] [address] Other 05-13-2023 10:15-0500 Systolic blood pressure 147 mm[Hg] Tondra Mapus Other [facility] 01-21-2023 14:45-0400 Body height 162.56 cm Tondra Mapus Other [facility] [address] Other 01-21-2023 14:45-0400 Body mass index (BMI) [Ratio] 37.35 kg/m2 Tondra Mapus Other [facility] [address] Other 01-21-2023 14:45-0400 Body weight 98.7 kg Tondra Mapus Other [facility] [address] Other 01-21-2023 14:45-0400 Diastolic blood pressure 80 mm[Hg] Tondra Mapus Other [facility] [address] Other 01-21-2023 14:45-0400 Respiratory rate 18 /min Tondra Mapus Other [facility] [address] Other 01-21-2023 14:45-0400 SaO2% (BldA) [Mass fraction] 96 % Tondra Mapus Other [facility] [address] Other 01-21-2023 14:45-0400 Systolic blood pressure 124 mm[Hg] Tondra Mapus Other [facility] [address] Other 07-22-2022 15:30-0500 Body height 162.56 cm Sara Adhikari Other [facility] [address] Other 07-22-2022 15:30-0500 Body mass index (BMI) [Ratio] 38.33 kg/m2 Sara Adhikari Other [facility] [address] Other 07-22-2022 15:30-0500 Body weight 101.29 kg Sara Adhikari Other [facility] [address] Other 07-14-2022 12:00-0500 Body height 162.56 cm Tondra Mapus Other [facility] [address] Other 07-14-2022 12:00-0500 Body mass index (BMI) [Ratio] 38.33 kg/m2 Tondra Mapus Other [facility] [address] Other 07-14-2022 12:00-0500 Body weight 101.29 kg Tondra Mapus Other [facility] [address] Other 07-14-2022 12:00-0500 Diastolic blood pressure 76 mm[Hg] Tondra Mapus Other [facility] [address] Other 07-14-2022 12:00-0500 Respiratory rate 18 /min Tondra Mapus Other [facility] [address] Other 07-14-2022 12:00-0500 SaO2% (BldA) [Mass fraction] 98 % Tondra Mapus Other [facility] [address] Other 07-14-2022 12:00-0500 Systolic blood pressure 144 mm[Hg] Tondra Mapus Other [facility] [address] Other 03-11-2022 12:00-0400 Body height 162.56 cm Tondra Mapus Other [facility] [address] Other 03-11-2022 12:00-0400 Body mass index (BMI) [Ratio] 38.93 kg/m2 Tondra Mapus Other [facility] [address] Other 03-11-2022 12:00-0400 Body weight 102.88 kg Tondra Mapus Other [facility] [address] Other 03-11-2022 12:00-0400 Diastolic blood pressure 67 mm[Hg] Tondra Mapus Other [facility] [address] Other 03-11-2022 12:00-0400 Respiratory rate 18 /min Tondra Mapus Other [facility] [address] Other 03-11-2022 12:00-0400 SaO2% (BldA) [Mass fraction] 98 % Tondra Mapus Other [facility] [address] Other 03-11-2022 12:00-0400 Systolic blood pressure 106 mm[Hg] Tondra Mapus Other [facility] [address] Other 12-04-2021 11:15-0400 Body height 162.56 cm Tondra Mapus Other [facility] [address] Other 12-04-2021 11:15-0400 Body mass index (BMI) [Ratio] 38.79 kg/m2 Tondra Mapus Other [facility] [address] Other 12-04-2021 11:15-0400 Body weight 102.51 kg Tondra Mapus Other [facility] [address] Other 12-04-2021 11:15-0400 Diastolic blood pressure 80 mm[Hg] Tondra Mapus Other [facility] [address] Other 12-04-2021 11:15-0400 Respiratory rate 20 /min Tondra Mapus Other [facility] [address] Other 12-04-2021 11:15-0400 SaO2% (BldA) [Mass fraction] 96 % Tondra Mapus Other [facility] [address] Other 12-04-2021 11:15-0400 Systolic blood pressure 119 mm[Hg] Tondra Mapus Other [facility] [address] Other 08-05-2021 10:45-0500 Body height 162.56 cm Tondra Mapus Other [facility] [address] Other 08-05-2021 10:45-0500 Body mass index (BMI) [Ratio] 39.3 kg/m2 Tondra Mapus Other [facility] [address] Other 08-05-2021 10:45-0500 Body weight 103.87 kg Tondra Mapus Other [facility] [address] Other 08-05-2021 10:45-0500 Diastolic blood pressure 81 mm[Hg] Tondra Mapus Other [facility] [address] Other 08-05-2021 10:45-0500 Respiratory rate 20 /min Tondra Mapus Other [facility] [address] Other 08-05-2021 10:45-0500 SaO2% (BldA) [Mass fraction] 95 % Tondra Mapus Other [facility] [address] Other 08-05-2021 10:45-0500 Systolic blood pressure 124 mm[Hg] Tondra Mapus Other [facility] [employer] [address] Other Encounters Encounter Date Encounter Type Care Provider Facility Start: 09-06-2024 End: 09-06-2024 Orders Only Alexandria Howard HEATER ROOM HELPER-COASTAL AND ESTUARY SPECIALIST Work Phone: [facility] Start: 09-04-2024 End: 09-06-2024 Refill Aaliyah Bell CMA [facility] Start: 08-17-2024 End: 08-17-2024 ambulatory [facility] Start: 08-10-2024 End: 08-10-2024 Office outpatient new 45 minutes Elen Archer HEATER ROOM HELPER-COASTAL AND ESTUARY SPECIALIST Work Phone: [facility] Comment on above: Spinal stenosis of l umbar region with neurogenic claudication (Primary Dx); Spondylolisthesis of lumbar region; Lumbar facet arthropathy; Chronic bilateral low back pain with bilateral sciatica Start: 08-10-2024 End: 08-10-2024 ambulatory [facility] Michelle [facility] Start: 08-09-2024 End: 08-09-2024 ambulatory ELEN Martinez [facility] Start: 07-18-2024 End: 07-18-2024 ambulatory [facility] Work Phone: Start: 07-18-2024 End: 07-18-2024 Patient encounter procedure [facility] Work Phone: Start: 07-17-2024 End: 07-17-2024 Refill Nanette Warren CMA [facility] Start: 07-13-2024 End: 07-13-2024 ambulatory ALEXANDRIA HOWARD [facility] Start: 06-16-2024 End: 06-19-2024 Refill Nanette Warren CMA [facility] Comment on above: Anemia, unspecified Start: 06-05-2024 ambulatory [facility] Josh [facility] Start: 06-01-2024 ambulatory MALIK [facility] Start: 05-29-2024 End: 05-29-2024 ambulatory [facility] Start: 05-29-2024 End: 05-29-2024 ambulatory [facility] Start: 04-13-2024 End: 04-13-2024 ambulatory [facility] Start: 04-13-2024 End: 04-13-2024 ambulatory [facility] Start: 02-23-2024 End: 02-23-2024 ambulatory [facility] Work Phone: Start: 02-23-2024 End: 02-23-2024 Patient encounter procedure [facility] Work Phone: Start: 12-17-2023 End: 12-17-2023 ambulatory MARYCRUZ KING [facility] Start: 10-04-2023 End: 10-04-2023 ambulatory [facility] Work Phone: Start: 10-04-2023 End: 10-04-2023 Patient encounter procedure [facility] Work Phone: Start: 09-27-2023 End: 09-28-2023 ambulatory Tra Last MD Facility:[facility] Start: 05-13-2023 (DM) Diabetes Tondra Raghavendraus [facility] Start: 05-13-2023 End: 05-14-2023 ambulatory NON STAFF [facility] Other Start: 05-13-2023 End: 05-13-2023 Discharged Recurring [facility] Work Phone: Start: 05-13-2023 End: 05-13-2023 Patient encounter procedure [facility] Work Phone: Start: 03-03-2023 End: 03-03-2023 ambulatory Tondra Mapus Other [facility] [address] Other Start: 03-03-2023 Telephone encounter Tondra Mapus [facility] Start: 01-26-2023 End: 01-26-2023 ambulatory Tondra Mapus Other [facility] [address] Other Start: 01-26-2023 Telephone encounter Tondra Mapus [facility] Start: 01-22-2023 End: 01-22-2023 ambulatory Tondra Mapus Other [facility] [address] Other Start: 01-22-2023 Telephone encounter Tondra Mapus [facility] Start: 01-21-2023 (DM) Diabetes Tondra Mapus [facility] Start: 01-21-2023 End: 01-21-2023 ambulatory Tondra Mapus Other [facility] [address] Other Start: 10-23-2022 End: 10-24-2022 ambulatory NARENDRANATH LAKSHMIPATHY . Facility: Start: 10-13-2022 ambulatory NARENDRANATH LAKSHMIPATHY . Facility: Start: 10-06-2022 End: 10-06-2022 ambulatory NARENDRANATH LAKSHMIPATHY . Facility: Start: 09-29-2022 End: 09-30-2022 ambulatory NARENDRANATH LAKSHMIPATHY . Facility: Start: 09-24-2022 End: 09-25-[address] MARYCRUZ GUZMAN Facility: Start: 07-22-2022 End: 07-22-2022 ambulatory Sara Adhikari Other [facility] [address] Other Start: 07-22-2022 Office outpatient visit 25 minutes Sara Adhikari [facility] Start: 07-14-2022 (DM) Diabetes Tondra Mapus [facility] Start: 07-14-2022 End: 07-14-2022 ambulatory Tondra Mapus Other [facility] [address] Other Start: 06-25-2022 End: 06-26-[address] OSIRIS KELLEY . Facility:[facility] Start: 05-18-2022 End: 05-18-2022 ambulatory Tondra Mapus Other [facility] [address] Other Start: 05-18-2022 Telephone encounter Tondra Mapus [facility] Start: 05-04-2022 End: 05-04-2022 ambulatory Tondra Mapus Other [facility] [address] Other Start: 05-04-2022 Telephone encounter Tondra Mapus [facility] Start: 04-27-2022 End: 04-27-2022 ambulatory Tondra Mapus Other [address] [address] Other Start: 04-27-2022 Telephone encounter Tondra Mapus [facility] Start: 03-11-2022 (DM) Diabetes Tondra Mapus [facility] Start: 03-11-2022 End: 03-11-2022 ambulatory Tondra Mapus Other [facility] [address] Other Start: 03-11-2022 Telephone encounter Tondra Mapus [facility] Start: 01-22-2022 End: 01-23-[address] OSIRIS KELLEY . Facility: Start: 01-06-2022 End: 01-06-[address] OSIRIS KELLEY . Facility:[facility] Start: 12-04-2021 (DM) Diabetes Tondra Mapus [facility] Start: 12-04-2021 End: 12-04-2021 ambulatory Tondra Mapus Other [facility] [address] Other Start: 11-20-2021 End: 11-21-[address] OSIRIS KELLEY . Facility:[facility] Start: 08-05-2021 (DM) Diabetes Tondra Mapus [facility] Start: 08-05-2021 End: 08-05-2021 ambulatory Tondra Mapus Other [address] [facility] [address] Other Start: 08-05-2021 Telephone encounter Tondra Mapus [facility] Start: 07-16-2021 End: 07-16-2021 ambulatory Tondra Mapus Other [facility] [address] Other Start: 07-16-2021 Telephone encounter Tondra Mapus [facility] Start: 07-15-2021 End: 07-15-2021 ambulatory Tondra Mapus Other [facility] [address] Other Start: 07-15-2021 Telephone encounter Tondra Mapus [facility] Procedures Date Procedure Procedure Detail Performing Clinician Start: 07-13-2024 Adult depression screening assessment Nanette Warren [facility] Start: 04-13-2024 Adult depression screening assessment Nanette Warren PROFESSOR OF GEOGRAPHY Start: 04-21-2023 Mammography Nanette moreno PROFESSOR OF GEOGRAPHY Start: 04-09-2022 Diabetic retinal eye exam Nanette Kelvin [facility] Start: 04-10-2013 History of renal transplant History of kidney transplant Nanette Kelvin [facility] History of renal transplant Tondra Mapus Other History of renal transplant History of transplantation, renal Comment on above: right kidney, 2013 Plan of Treatment Date Care Activity Detail Author Start: 08-10-2025 Adult BMI Follow Up Plan Adult BMI Follow Up Plan [facility] Start: 08-10-2025 Adult BMI Screening Adult BMI Screen ing [facility] Start: 08-10-2025 Tobacco Screening Tobacco Screening [facility] Start: 07-13-2025 Adult BMI Screening Adult BMI Screen ing [facility] Start: 07-13-2025 Depression Screening Depression Scre ening [facility] Start: 07-13-2025 Fall Risk Screening Fall Risk Screen ing [facility] Start: 07-13-2025 Tobacco Screening Tobacco Screening [facility] Start: 04-13-2025 Adult BMI Screening Adult BMI Screen ing [facility] Start: 04-13-2025 Depression Screening Depression Scre ening [facility] Start: 04-13-2025 Fall Risk Screening Fall Risk Screen ing [facility] Start: 04-13-2025 Tobacco Screening Tobacco Screening [facility] Start: 10-05-2024 End: 10-05-2024 Patient encounter procedure 10/05/2024 10:40 AM EDT Office Visit [facility] [address] [place] [address] Alexandria Howard, HEATER ROOM HELPER-COASTAL AND ESTUARY SPECIALIST [address] [place] [address] [facility] Start: 08-10-2024 End: 08-10-2025 MR Lumbar spine WO contrast MR lumbar spine without contrast Imaging Routine Spinal stenosis of lumbar region with neurogenic claudication Spondylolisthesis of lumbar region Lumbar facet arthropathy Chronic bilateral low back pain with bilateral sciatica Expected: 08/10/2024, Expires: 08/10/2025 [facility] Work Phone: Comment on above: Expected: 08/10/2024 , Expires: 08/10/2025 Start: 08-10-2024 End: 08-10-2024 Patient encounter procedure 08/10/2024 1:30 PM EST Office Visit [facility] [address] [place] [address] Elen Archer, HEATER ROOM HELPER-COASTAL AND ESTUARY SPECIALIST [address] [place] [address] [facility] Start: 07-18-2024 Patient referral [facility] Work Phone: Start: 06-29-2024 End: 06-29-2024 Patient encounter procedure 06/29/2024 11:00 AM EST Office Visit [facility] [address] [place] [address] Elen Archer, HEATER ROOM HELPER-COASTAL AND ESTUARY SPECIALIST [address] [place] [address] [facility] Start: 04-21-2024 Screening for malign ant neoplasm of breast Mammogram [facility] Start: 11-04-2023 Medicare Annual Wellness Visit Medicare Annual Wellness Visit [facility] Start: 04-09-2023 Glaucoma screening Diabetic Op hthalmology Exam [facility] Start: 07-16-2014 DTaP,Tdap and Td Vaccines (2 - Tdap) DTaP,Tdap and Td Vaccines (2 - Tdap) [facility] Start: 1973 Administration of varicella zoster vaccine Zoster (Shingles) Vaccine (1 of 2) [facility] Start: 1972 Adult BMI Follow Up Plan Adult BMI Follow Up Plan [facility] Start: 1972 Diabetic foot examination Diabetic Foot Exam [facility] Comprehensive metabo lic 1999 panel - Serum or Plasma [facility] Comprehensive metabo lic 1999 panel - Serum or Plasma [facility] Patient referral [facility] Work Phone: [facility] Immunizations Immunization Date Immunization Notes Care Provider Fa cility 04-13-2024 Seasonal trivalent influenza vaccine, adjuvanted, preservative free Nanette Warren [facility] 04-06-2023 Influenza Vaccine, Quadrivalent, Adjuvanted Nanette Warren [facility] 10-07-2020 COVID-19, mRNA, LNP- S, PF, 100mcg/0.5mL Dose Nanette Warren [facility] 09-06-2020 COVID-19 Vaccine Moderna - Documentation Purposes Only Tondra Mapus Other [facility] 08-09-2020 COVID-19 Vaccine Moderna - Documentation Purposes Only Tondra Mapus Other [facility] 04-24-2020 influenza virus vaccine, unspecified formulation [facility] 04-24-2020 Influenza, High-dose , Quadrivalent Nanette Warren [facility] 04-24-2020 influenza, high dose seasonal, preservative-free Tona Raghavendraus Other [facility] Other 05-28-2017 Influenza, injectabl e, Madin Iris Canine Kidney, preservative free, quadrivalent Nanette Warren [facility] 04-10-2016 influenza, seasonal, injectable, preservative free Nanette Warren [facility] 09-24-2015 pneumococcal conjuga te vaccine, 13 valent Nanette Warren [facility] 04-14-2015 influenza, seasonal, injectable Nanette Warren [facility] 04-19-2013 pneumococcal polysaccharide vaccine, 23 valent Nanette Warren [facility] 02-10-2012 pneumococcal polysaccharide vaccine, 23 valaga Warren [facility] 07-16-2004 DTaP-Haemophilus influenzae type b conjugate vaccine Nanette Warren [facility] Payers Date Payer Category Payer Unknown 2020 Medicare O ANTH MEDICARE [id number] 2017 Self-pay [id number] Private Health Insurance [id number] 1959 Medicare [id number] [id number] 1954 Unknown [id number] 2.16.840.1.133116.3.579. 2.593 1954 Unknown [id number] 2.16.840.1.930860.3.579. 2.593 1954 Unknown [id number] 2.16.840.1.289547.3.579. 2.593 1954 Unknown [id number] 2.16.840.1.128177.3.579. 2.593 1954 Unknown [id number] 2.16.840.1.287238.3.579. 2.593 1954 Unknown [id number] 2.16.840.1.684328.3.579. 2.593 1954 Unknown [id number] 2.16.840.1.558259.3.579. 2.593 1954 Unknown [id number] 2.16.840.1.992823.3.579. 2.593 1954 Unknown [id number] 2.16.840.1.447297.3.579. 2.593 1954 Unknown [id number] 2.16.840.1.953958.3.579. 2.196 1954 Unknown [id number] 2.16.840.1.525142.3.579. 2.1286 1954 Unknown [id number] 2.16840.1.686847.3.579. 2.128 1954 Unknown [id number] 2.16.840.1.528666.3.579. 2.1286 1954 Unknown [id number] 2.16.840.1.729901.3.579. 2.128 1954 Unknown [id number] 2.16.840.1.161868.3.579. 2.128 1954 Unknown [id number] 2.16.840.1.036222.3.579. 2.128 1954 Unknown [id number] 2.16.840.1.662551.3.579. 2.1286 1954 Unknown [id number] 2.16.840.1.374680.3.579. 2.1286 1954 Unknown [id number] 2.16.840.1.440497.3.579. 2.1286 1954 Unknown [id number] 2.16.840.1.310764.3.579. 2.1286 Unknown [id number] 2.16.840.1.363932.3.579. 2.531 Social History Date Type Detail Facility Unknown if ever smoked [facility] Other Start: 11-03-2022 End: 08-10-2024 Sex Assigned At [facility] Start: 08-21-2019 End: 07-14-2023 Tobacco smoking status ILIS Never smoked tobacco (finding) [facility] Start: 1955 Sex Assigned At Female [facility] Start: 07-14-2023 Tobacco use and exposure Smokeless tobacco non-user [facility] Start: 04-13-2024 End: 08-10-2024 Alcoholic beverage intake Lifetime non-drinker (finding) [facility] Start: 11-03-2022 End: 08-10-2024 History of Social function [facility] Do you belong to any clubs or organizations such as christianity groups, unions, fraternal or athletic groups, or school groups? No [facility] Are you now , , , , never or living with a partner? [facility] Frequency of Alcohol Consumption Never [facility] Do you feel stress - tense, restless, nervous, or anxious, or unable to sleep at night because your mind is troubled all the time - these days [OSQ] To some extent [facility] Start: 1955 [facility] Start: 01-17-2015 End: 07-18-2024 Sex Female (finding) [facility] Procedure Code Equipment Code Equipment Origin al Text Equipment Identifier Dates blood sugar diagnostic (FreeStyle Precision Harish Strips) Start: 10-04-2023 blood sugar diagnostic (FreeStyle Precision Harish Strips) Start: 10-04-2023 blood sugar diagnostic (FreeStyle Precision Harish Strips) Start: 10-04-2023 Clinical Notes 04-14-2020 to 08-10-2024 Elen Archer APRN-COASTAL AND ESTUARY SPECIALIST - 08/10/2024 1:30 PM ESTPatient Instructions Note Date & Type Note Facility 08-10-2024 History of Present illness Narrative Images from the original note were not included. [facility] [address] [facility] [id number] Subjective Patient ID: Lisy Solis is a 68 y.o. female. Encounter Date: 08/10/2024 CHIEF COMPLAINT Chief Complaint Patient presents with Consult New patient, lumbar, xrays in chart HISTORY OF PRESENT ILLNESS HPI Lisy Solis is a new patient to [facility] who was referred in regards to chronic low back pain. She reports her back pain started after she fell down her basement steps and fractured her tailbone when she was 29 years old. Her tailbone no longer bothers her. She reports her pain is across her low back and she gets pain and numbness down the back of her thighs. She feels weakness and heaviness in her legs. She is unable to stand or walk far due to pain and weakness. She has diabetic neuropathy from her knee's down which impairs her balance. She last went to PT last year which did not help. She does her home exercises daily for 15 minutes. She has been following with pain management. She reports prior injections do not really help. Her medications take the edge off for a little bit. She is considering having a spinal cord stimulator placed but needs to make sure no surgery is needed. She is scared to have back surgery as her brother has had 3 failed surgeries. She did have a cervical fusion 30 years ago. Location: lumbar spine bilaterally Has always had some neck pain that is tolerable since fusion, has trigger finger right middle, left ring and arthritis in hands, denies radiculopathy Radiation: R>L buttock and posterior thigh to knee Numbness/Paraesthesias:bilateral posterior thighs, diabetic neuropathy knee's to toes Description: constant pain Exacerbating factors: standing 10 min, walking < 100 yards, lifting, sitting longer periods, pain wakes her at night Alleviating Factors: rest breaks, meds/heat help take edge off for a little while Functional impairment: severe Severity: rates the pain 8/10 at its best and >10/10 at its worst. Duration/Initial inciting event: Symptoms started after fell down basement steps and fractured tailbone at age 29. Worse x 10 years and leg pain started Weakness: bilateral upper and lower extremities, legs feel like she has elephants on them Patient is right hand dominant Cauda equina/Myelopathy symptoms: patient denies new bowel/bladder dysfunction, saddle anesthesia or loss of coordination. She feels off balance from her neuropathy. She has fine motor difficulty from hand pain. The patient symptoms are not associated with a new illness or viral syndrome. The symptoms are not associated with any concerning constitutional symptoms such as fever, rash, unexplained change in weight or appetite. There are no new night sweats. Patient denies history of illicit drug abuse/IV drug use. Current and prior evaluation and treatments: -Medication trials for this problem: flexeril, percocet 7.5 , gabapentin 600 mg TID (prior baclofen) - Alternative methods to treatment: heat -Physical therapy/Home exercise program (HEP): PT Vivien last in 2023 did not help. She does provider directed stretches daily for 15 minutes since. -animal care worker: none -Pain management: [facility] Dr Brian Last saw once and recommended SCS-have to rule out surgical concern first Has had injections in low back, last around 2023 per patient-they do not really help Prior [facility] pain management -Pertinent spine surgeries/previous consults: 30 years ago C5-6 ACDF 30 years ago Bilateral CTR 2019 consults with [facility] and Dr Do for lumbar-lumbar surgery recommended -Pertinent comorbid conditions: diabetes with neuropathy, renal cell CA s/p kidney transplant, obesity -Summary of spine imaging findings: -Lumbar: severe facet arthritis, DDD, moderate to severe spinal stenosis L2-5 in 2022, mild to moderate foraminal stenosis -Cervical: spondylosis/severe DDD C6-T1, moderate spinal stenosis C4-5, foraminal stenosis PERTINENT IMAGING/DIAGNOSTIC TESTING X-ray spine lumbar ap, lateral, flexion and extension only Result Date: 08/09/2024 FINDINGS: Lumbar vertebral body heights are preserved. Severe diffuse facet arthropathy. Anterolisthesis of L3 on L4 measuring 5 mm and L4 on L5 measuring 6 mm. Multilevel disc related degenerative disease with disc height most prominent at L2-3 and L3-4. No pathologic change in alignment between flexion and extension. IMPRESSION: * Multilevel disc and facet related degenerative disease. MRI lumbar 05/18/2023 [facility] Findings: Subacute lumbar spine fractures, acute malalignment or acute abnormal marrow signal. No spinal canal mass, hematoma or fluid collection. T12 chronic compression fracture with mild height loss, likely in the setting of hemangioma. Grade 1 anterolisthesis of L3 on L4 and L4 and L5 Lumbar spine degenerative changes with posterior disc bulging at the L1-2 level. L2-3 and L3-4 posterior disc protrusions. L4-5 and L5-S1 mild posterior disc bulging. Relatively preserved intervertebral disc heights. Spinal stenosis: Mild L1-2, L5-S1. Moderate to severe L2-3, L3-4. Moderate to severe L4-5 spinal canal stenosis, worse along the left lateral recess. Foraminal stenosis: Mild right L1-2. Moderate right L2-3 and L3-4. Mild right L4-5. Mild left L1-2. Ywdy-vr-kaodkptv left L2-3 and L3-4. Mild left L4-5 and L5-S1. Atrophic left kidney. Right pelvic kidney. Remainder unremarkable. CT cervical 01/19/2023 [facility] Findings: From anterior diskectomy and fusion at C5-6. The hardware is intact. There is good osseous fusion across the C5-6 disc space. Odontoid process intact. Alignment normal. Facet joints normal. No evidence of fractures. C2-3, no spinal stenosis or foraminal narrowing C3-4, mild degenerative disc disease. There is shallow broad-based central protrusion with mild spinal stenosis. No foraminal narrowing. C4-5, moderate degenerative disc disease. Disc bulge and ligamentum flavum thickening results in moderate spinal stenosis. Uncovertebral osteophyte results in moderate left foraminal narrowing. C5-6, there are postoperative changes from anterior fusion. Mild spinal canal stenosis. Mild left foraminal narrowing. C6-7, disease. Mild spinal stenosis. Uncovertebral osteophyte results in moderate bilateral foraminal narrowing.. C7-T1, severe degenerative disc disease. No spinal stenosis. Right foraminal uncovertebral osteophyte results in moderate right foraminal narrowing. No paraspinal soft tissue swelling. No paraspinal mass. Impression: 1. There are postoperative changes from previous anterior fusion at C5-6. There is solid osseous fusion across the disc space. Mild spinal stenosis at this level. Mild left foraminal narrowing. 2. Severe degenerative disc disease at C6-7 and C7-T1. Moderate degenerative disc disease at C3-4. 3. Degenerative changes result in moderate spinal stenosis at C4-5. 4. Izvn-ii-urqxemdb foraminal narrowing at multiple levels as described above. EMG 01/23/2019 RUE TAMMIE 1. Right ulnar neuropathy, at or distal to the wrist such as cubital tunnel syndrome, which is moderate in degree electrically 2. There is no evidence for cervical motor radiculopathy 3. There is no evidence of the brachial plexopathy, median or radial neuropathy seen. 4. Clinical correlation is required BEHAVIORAL SCREENING, RED/YELLOW FLAGS Elective Fusion Surgery: Yes Medical Marijuana/CBD use: No Daily MME: 33.75 [place] Disability Score- Back: 54% severe RED FLAGS Red Flags Fever: No Night Sweats: No Unintended Weight Loss: No History of Cancer: Yes Type of Cancer: renal cell s/p transplant Immunocompromised?: Diabetes (on immunosuppressants) Substance Abuse- Active: No Substance Abuse- Prior History: No Cauda Equina Symptoms: None YELLOW FLAGS Yellow Flag Symptomatic Depression: No Active major thought disorder: No Excessive Narcotic Use/ MEW >30 per day: Yes Current average daily MEQ: 32.63 OARRS/MAPS Report Red Flags: Nothing Listed Work Dissatisfaction: Yes REVIEW OF SYSTEMS Review of Systems Constitutional: Negative for chills, diaphoresis, fever and unexpected weight change. Gastrointestinal: Fecal incontinence denied Genitourinary: Negative for difficulty urinating. Denies saddle anesthesia or bladder control issues Musculoskeletal: Positive for arthralgias, back pain, gait problem and neck pain. Neurological: Positive for weakness and numbness. Psychiatric/Behavioral: Positive for sleep disturbance. Negative for dysphoric mood and suicidal ideas. PHYSICAL EXAMINATION Objective Vitals: BP 108/68 Pulse 69 Ht 167.6 cm (5' 6 ) Wt 91.2 kg (201 lb) BMI 32.44 kg/m Physical Exam Constitutional: General: She is not in acute distress. Appearance: She is not toxic-appearing. Pulmonary: Effort: Pulmonary effort is normal. Musculoskeletal: Comments: No cervical, +T10-S1 spinous process, bilateral SIJ, bilateral gluteal and right lateral hip tenderness. No paraspinal cervical tenderness. Sacral thigh thrust bilaterally with pain across low back and in glutes SLR and Bragard's test+ bilateral S1 IRENE testing is negative for hip pain, bilaterally with pain across low back Muscle strength: 5/5 bilaterally unless noted otherwise: -Resisted scapular elevation -Deltoids 4 -Shoulder abduction -Shoulder adduction -Biceps/elbow flexion 4 -Triceps/elbow extension 4 -Wrist extension 4+ -Wrist flexion 4+ -First Dorsal Interosseous 4 -Abductor Digiti Minimi 4 -Hand grasps 4- -Iliopsoas -Quadriceps 4 -Hamstrings -Hip adductors -Hip abductors 4 -Tibialis anterior 4+ -Tibialis posterior 4+ Standing on heels difficult Standing on tip toes normal Neurological: Mental Status: She is alert and oriented to person, place, and time. Motor: Weakness present. No pronator drift. Coordination: Romberg sign negative. Gait: Tandem walk (slightly difficult as she has very short stride) normal. Deep Tendon Reflexes: Reflex Scores: Tricep reflexes are 1+ on the right side and 1+ on the left side. Bicep reflexes are 1+ on the right side and 0 on the left side. Brachioradialis reflexes are 1+ on the right side and 1+ on the left side. Patellar reflexes are 2+ on the right side and 2+ on the left side. Achilles reflexes are 2+ on the right side and 2+ on the left side. Comments: Sensation intact and equal to all extremities but decreased below the knee's bilaterally. Gage's negative Ankle Clonus negative The following portions of the patient's history were reviewed and updated as appropriate: allergies, current medications, past family history, past medical history, past social history, past surgical history and problem list. ALLERGIES No Known Allergies MEDICATIONS Current Outpatient Medications: alcohol swabs pads, medicated, BD Alcohol Swabs, Disp: , Rfl: aspirin 81 mg, 1 tablet Orally Once a day for 30 day(s), Disp: , Rfl: cyclobenzaprine (FLEXERIL) 10 mg tablet, Take 1 tablet (10 mg total) by mouth 3 (three) times a day as needed., Disp: , Rfl: diclofenac sodium-menthoL 1.5-10 % combo pack, Apply 1 Application topically in the morning and 1 Application at noon and 1 Application in the evening and 1 Application before bedtime., Disp: 239 mL, Rfl: 1 empagliflozin (JARDIANCE) 10 mg tablet tablet, 1 tablet Orally Once a day for 30 day(s), Disp: , Rfl: ferrous sulfate 325 (65 FE) mg tablet, Take 1 tablet (325 mg total) by mouth in the morning and 1 tablet (325 mg total) in the evening. Take with meals., Disp: 180 tablet, Rfl: 3 flash glucose scanning reader (FREESTYLE SYLVIA 14 DAY READER) misc, FreeStyle Sylvia 14 Day Eagle, Disp: , Rfl: flash glucose sensor (FREESTYLE SYLVIA 14 DAY SENSOR) kit, FreeStyle Sylvia 14 Day Sensor kit USE DIRECTED CHANGE EVERY 14 DAYS, Disp: , Rfl: gabapentin (NEURONTIN) 600 mg tablet, Take 1 tablet (600 mg total) by mouth in the morning and 1 tablet (600 mg total) at noon and 1 tablet (600 mg total) in the evening and 1 tablet (600 mg total) before bedtime., Disp: 360 tablet, Rfl: 0 insulin degludec (TRESIBA FLEXTOUCH U-100) 100 unit/mL (3 mL) insulin pen, Inject 60 Units under the skin nightly., Disp: , Rfl: mycophenolate (CELLCEPT) 250 mg capsule, 4 capsules Orally BID for 90 days, Disp: , Rfl: oxyCODONE-acetaminophen (PERCOCET) 7.5-325 mg per tablet, Take 1 tablet by mouth 3 (three) times a day as needed for pain. Max Daily Amount: 3 tablets, Disp: , Rfl: OZEMPIC 2 mg/dose (8 mg/3 mL) pen injector, , Disp: , Rfl: pen needle, diabetic (BD ULTRA-FINE MINI PEN NEEDLE) 31 gauge x 3/16 needle, BD Ultra-Fine Mini Pen Needle 31 gauge x 3/16 , Disp: , Rfl: rosuvastatin (CRESTOR) 20 mg tablet, Take 1 tablet (20 mg total) by mouth in the morning., Disp: 90 tablet, Rfl: 1 Saccharomyces boulardii (FLORASTOR) 250 mg capsule, Take 1 capsule (250 mg total) by mouth Daily at 0300., Disp: 90 capsule, Rfl: 3 sertraline (ZOLOFT) 100 mg tablet, TAKE 1 TABLET DAILY, Disp: 90 tablet, Rfl: 1 tacrolimus (PROGRAF) 1 mg capsule, Take 2 capsules (2 mg total) by mouth in the morning and 2 capsules (2 mg total) at noon and 2 capsules (2 mg total) in the evening., Disp: , Rfl: traZODone (DESYREL) 150 mg tablet, Take 1 tablet (150 mg total) by mouth nightly., Disp: 90 tablet, Rfl: 1(All medications reviewed and updated) PAST MEDICAL HISTORY Past Medical History: Diagnosis Date Diabetes mellitus type 2, controlled ([facility] [place] [place]) Diabetic peripheral neuropathy ([facility] [place] [place]) History of kidney cancer 2011 Insulin dependent diabetes mellitus SOCIAL HISTORY Social History Occupational History Not on file Tobacco Use Smoking status: Never Smokeless tobacco: Never Vaping Use Vaping status: Never Used Substance and Sexual Activity Alcohol use: Never Drug use: Never Sexual activity: Defer SUMMARY/ PLAN Plan 1. Spinal stenosis of lumbar region with neurogenic claudication - MR lumbar spine without contrast; Future 2. Spondylolisthesis of lumbar region - MR lumbar spine without contrast; Future 3. Lumbar facet arthropathy - MR lumbar spine without contrast; Future 4. Chronic bilateral low back pain with bilateral sciatica - MR lumbar spine without contrast; Future X-ray imaging reviewed with patient. There is minimal thoracolumbar curvature to the left. There is multilevel disc degeneration and endplate spurring. There is severe multilevel facet arthritis. There is a chronic compression fracture at T12. There is grade 1 anterolisthesis at L3-4 and L4-5 both measuring around 4-5 mm without instability. Her MRI from 2022 was also reviewed showing moderately severe multilevel spinal stenosis and degenerative changes. Patient has chronic low back pain with bilateral S1 radiculopathy and neurogenic claudication. She has not had any significant or lasting relief with conservative measures including PT, home exercises, medications and injections. She is considering having a spinal stimulator placed. I advised with the severity of her spinal stenosis she would likely be a surgical candidate. I also advised that surgery may not relieve all of her pain but should help improve her weakness and activity tolerance. We discussed updating her MRI and then referring her for a surgical consult so that she can make an informed decision to proceed with surgery or continue with spine stimulator. Recommendations Lumbar MRI-[facility]-advised patient to let me know after complete so we can request images Follow up: I will update her after MRI and she will let me know if she wants referral to local neurosurgery or [facility] for surgical consult I educated the patient on s/s and provided information in the AVS regarding cauda equina and myelopathy if pertinent. I advised the patient to go to the ER if these symptoms occur. The OARRS/MAPPS database was reviewed today and found to be appropriate. No indication of medication diversion, or non compliance. Patient noted to have elevated BMI which can contribute to disc degeneration. A healthy weight is recommended for spine health. The following intervention(s) were applied: encouragement to exercise.The BMI is above average; BMI management plan is completed. Thank you for the referral. JOSÉ MIGUEL Denton (Cryan)P-C [facility] All questions were answered during the encounter and the patient was in agreement with plan of care. This office visit was spent face to face with the patient addressing counseling/education, reviewing test results if noted, instructions for management, treatment options and importance of compliance with treatment, performing medically appropriate examination and or coordination of care. SHANNON Boswell 08/10/24 [id number] documented in this encounter [facility] 08-10-2024 Instructions SHANNON Boswell - 08/10/2024 1:30 PM EST When your neck or back is hurting, it can affect everything you do. Whether you've had a recent minor injury or your pain has slowly developed over time, there are some things you can do at home to help ease the pain. In addition to home remedies, there are many conservative treatments to try before surgery is considered. In fact, some people aren't good candidates for surgery. Non-surgical treatments may help to improve your pain and include: physical therapy, home exercise program, prescription medications and or pain management. Here are some tips for managing spine pain at home: Keep moving. When you're in pain, the last thing you want to do is move, but this will make the pain worse over time. Make time each day for some physical activity to keep joints lubricated, muscles engaged and blood flowing. Use proper body mechanics while lifting and moving. Improve your posture. Whether you're seated or standing, be mindful of having good posture throughout the day. Focus on keeping your spine in a neutral position and keeping it supported. Utilize heat and ice. Alternate heat and ice on the affected area. Heat will help loosen tight muscles and increase blood flow, while ice will help reduce inflammation. Apply each for 15 to 20 minutes before switching to the other temperature. Take mtsg-yih-uoivrdc medicines. The use of zpwh-rxx-cpazyby medications such as anti-inflammatory (Ibuprofen, Aleve, Naproxen) and or Tylenol/Acetaminophen, creams, ointments and patches can help relieve pain. Do not take tylenol if you have liver disease. Do not take ibuprofen if you have a history of stomach ulcers or acid reflux, heart disease, or are on anticoagulation therapy, or if you are . TENS unit. Transcutaneous electrical nerve stimulation (TENS) uses electrodes to distribute a mild electrical current. This helps block pain signals. Complementary therapies. Therapies such as massage and acupuncture can help stimulate blood flow, which is essential for a healthy spine. They can also release endorphins and relax tense muscles. If you smoke, quit smoking. Nicotine has many negative effects on the body, including inflammation and constricting blood vessels. This reduces the amount of blood and nutrients that are distributed throughout the body, including the spine. Maintaining a healthy weight. Excess weight can impact the natural curve of the spine, press on the shock-absorbing discs between the vertebrae and cause them to become herniated, pinched, or cause pressure on the nerves that travel through the central canal, and or strain the muscles and ligaments that support your back. It can also lead to the development of arthritis in your low back. Common conditions that can contribute to neck, back or spine pain include: Degenerative disc disease: Discs are the cushions between our vertebrae that act as shock absorbers. As we age, our discs begin to lose fluid content, wear away and shrink. As the disc shrinks and our joints lose the fluid that lubricates them, the bones can start to rub together causing pain and bulging discs. A herniated disc occurs when the material inside the disc leaks out. This can be caused by wear and tear or injury. The disc material can put pressure on the spinal canal and irritate your spinal nerves. This can cause pain, numbness and or weakness. Facet joint arthritis: Arthritis that affects the joints that are located on the back of the spine and assist with bending, twisting and alignment. Spinal stenosis: Herniated or bulging discs and degeneration can cause a narrowing of the spinal canal, which can puts pressure on the spinal cord and other nerves. Compression fractures: Typically, this is a result of age-related degeneration or osteoporosis. The spinal vertebrae get small cracks, causing them to collapse. Radiculopathy: Commonly known as a pinched nerve, this condition may cause numbness, tingling, pain or weakness in your arms of legs. Sciatica is one example of this where the sciatic nerve in the low back causes symptoms down the back of the legs. Pinched nerves can be caused by any of the conditions listed above. When to notify your floral specialist: If your neck pain or back pain does not improve or worsens. If you develop new or worsening arm or leg pain or numbness. If you develop new or worsening weakness. (If it is severe where you cannot lift your extremity you may also need to go to the emergency room) If you have develop Cauda equina symptoms: difficulty controlling your bowel or bladder (leaking without having and urge or difficulty emptying). It may also cause numbness or tingling in your genital or rectal region. This may also require a trip to the emergency room. If you develop balance issues, feel unsteady on your feet or clumsiness of the arms, hands or legs this may be a sign of myelopathy or compression of your spinal cord. If you do not have a PCP, call [phone] to schedule a new patient appointment. [facility] HNO ID: [id number] Author: Alondra Boggs PA-C Service: ? Author Type: Physician [employer] Type: Progress Notes Filed: 06/02/2023 4:31 PM [...] reviewed during the appt Alondra Boggs PA-C [facility] 05-31-2023 Note HNO ID: [id number] Author: Alycia Red Service: ? Author Type: ? Type: Progress Notes Filed: 06/02/2023 4:31 PM Note Text: Patient name: Lisy Solis Are you being referred by a [facility] Provider or Pain Management Provider at [facility]? No If answer is YES please schedule [...] facility where the MRI/CT/myelogram was completed: [facility] [address] [place] [address] MRI/CT/myelogram viewable in Epic: No If not, please provide [phone] to fax in imaging reports for review. [...] and/or physical therapy was completed Injection: [facility] [address] [place] [address] PT: [facility] [address] [place] [address] Have you tried any other kinds of [...] where the surgery was completed: Additional Comments [phone] [facility] 05-13-2023 Evaluation note Encounter Date Diagnosis Assessment Notes Apr, Type 2 diabetes mellitus with hyperglycemia (ICD-10 - E11.65) Diabetes (type 2) material was published 1. Uncontrolled, a Type 2 diabetes with A1c of 8.4% 2. Blood glucose levels above target. According to [employer] cgm download 04/30/23-: Avg glucose 167. >250-5%, [...] hyperglycemia, or diabetes medication issues. 6. Prescriptions: Jardiance, tresiba, novolog sent to [facility]. 7. 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 Pt verbalizes understanding. 3. 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 (ICD-10 - Z79.4) Jan, Kidney transplant status (ICD-10 - Z94.0) keep f/u with nephrology/transpl ant team Jan, Hypoglycemia (ICD-10 - E16.2) Low blood glucose and diabetes material was published Jan, BMI 37.0-37.9, adult (ICD-10 - Z68.37) Eating healthy: tips to make it easier material was published 6 pound weight loss from last visit, continue with weight loss efforts [facility] 04-18-2023 NotePROCEDURE: XR LSPINE 2_3 VIEWS [...] Electronically authenticated by: SHADI KNOX Date: 2022-09-29 14:41[facility]04-13-2023 NoteCONSULTATION CONSULTATION DATE: 09/24/2022 TO: Dr. [...] our patients to inform us about any [id number] medications or herbal remedies/nutritional supplements/alternative remedies. 2. [...] treatment options with their primary care provider.[id number] Evaluation note * Encounter Date Diagnosis Assessment [...] Jul, Left hand pain (ICD-10 - M79.642) [facility] 01-31-2023 Evaluation note* Encounter Date Diagnosis Assessment Notes Treatment Notes Treatment Clinical Notes Jun, Type 2 diabetes mellitus with hyperglycemia (ICD-10 - E11.65) Diabetes (type 2) material was published 1. Uncontrolled, a Type 2 diabetes with A1c of 7.9% 2. Blood glucose levels improved from last visit; however, above target. According to [employer] cgm download 07/01/2022- 3: Avg glucose 159. 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 Do, Neurosurgery, in [place] in the past, who did recommend a lumbar fusion in 2019. She has since been referred to [facility] for a second opinion, and [...] in three months to maintain her medications.[id number] Evaluation note* Encounter Date Diagnosis Assessment Notes Treatment Notes Treatment Clinical Notes May, Type 2 diabetes mellitus with hyperglycemia (ICD-10 - E11.65) [facility] 11-21-2022 Evaluation note* Encounter Date Diagnosis Assessment Notes Treatment Notes Treatment Clinical Notes Apr, Type 2 diabetes mellitus with hyperglycemia (ICD-10 - E11.65) [facility] 11-14-2022 Evaluation note* Encounter Date Diagnosis Assessment Notes Treatment Notes Treatment Clinical Notes Apr, Type 2 diabetes mellitus with hyperglycemia (ICD-10 - E11.65) [facility] 09-28-2022 Evaluation note* Encounter Date Diagnosis Assessment Notes Treatment Notes Treatment Clinical Notes Feb, Type 2 diabetes mellitus with hyperglycemia (ICD-10 - E11.65) Diabetes (type 2) material was published 1. Uncontrolled, a Type 2 diabetes with A1c of 8.0% 2. Blood glucose levels improved from last visit; however, above target. According to [employer] cgm download 02/26/2022- 2: Avg glucose 169. [...] high blood pressure material was published Feb, group home current use of insulin (ICD-10 - Z79.4) Feb, Kidney transplant status (ICD-10 - Z94.0) keep f/u with nephrology Feb, Vitamin D deficiency (ICD-10 - E55.9) 07/2021 vit d 23.9, recommend otc vit d 2000 units once daily Feb, BMI 38.0-38.9,adult (ICD-10 - Z68.38) Healthy eating material was published 3 pound weight loss from last visit, continue with weight loss efforts [facility] 08-11-2022 NoteCONSULTATION CONSULTATION DATE: 01/22/2022 HISTORY [...] and is requesting to go back to Zenda 10 today. She states that helps her [...] There will be no dose changes to Zenda. She will be back in three months' time, if she does not want to move forward with the procedure.[id number] [facility] note* Encounter Date Diagnosis Assessment Notes Treatment Notes Treatment Clinical Notes Nov, Type 2 diabetes mellitus with hyperglycemia (ICD-10 - E11.65) Diabetes (type 2) material was published 1. Uncontrolled, a Type 2 diabetes with A1c of 8.4% 2. Blood glucose levels improved from last visit; however, above target. According to [employer] cgm download 11/21/2021- 2: Avg glucose 182. [...] 6. Prescriptions: Ozempic 2mg/Jardiance 25mg sent to [email or web address] Nov, Dietary counseling and surveillance (ICD-10 - Z71.3) Maintaining a healthful weight material was published Nov, Hyperlipidemia (ICD-10 - E78.5) Managing your cholesterol material was published 07/2021 ldl 79, trig 355, on statin. 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 [facility] Signed and Approved by: ELIESER BIRCH . 11/27/2021 16:02:00[facility]02-22-2022 Evaluation note* Encounter Date Diagnosis Assessment Notes Treatment Notes Treatment Clinical Notes Jul, Type 2 diabetes mellitus with hyperglycemia (ICD-10 - E11.65) Diabetes (type 2) material was published 1. Uncontrolled, a Type 2 diabetes with A1c of 7.9% 2. Blood glucose levels improved from last visit; however, above target. According to [employer] cgm download 07/23/2021-08/05/2021 : Avg glucose 154. [...] issues. 6. Prescriptions: Sent ozempic 1mg to [facility]. Jul, Dietary counseling and surveillance (ICD-10 - Z71.3) Maintaining a healthful weight material was published Jul, Hyperlipidemia (ICD-10 - E78.5) Managing your cholesterol material was published 07/2021 ldl 79, trig 355, on statin. Jul, HTN (hypertension) (ICD-10 - I10) Managing high blood pressure material was published Jul, group home current use of insulin (ICD-10 - Z79.4) Jul, Kidney transplant status (ICD-10 - Z94.0) keep f/u with nephrology Jul, BMI 39.0-39.9,adult (ICD-10 - Z68.39) Healthy eating material was published 9 pound weight loss from last visit, continue with weight loss efforts Jul, Vitamin D deficiency (ICD-10 - E55.9) 07/2021 vit d 23.9, recommend otc vit d 2000 units once daily [facility] 02-01-2022 Evaluation note* Encounter Date Diagnosis Assessment Notes Treatment Notes Treatment Clinical Notes Jul, Type 2 diabetes mellitus with hyperglycemia (ICD-10 - E11.65) [facility] 11-01-2020 History general Narrative - Reported* Type Description Date Medical History DM2 Medical History KIDNEY RT/TRANSPLANT 2012 Medical History HLP Medical History HTN Medical History PVD Medical History Fractured left ankle 04/2020 Surgical History RT KIDNEY TRANSPLANT 2012 Surgical History LT SHOULDER Surgical History HYSTER Surgical History CHOLY Hospitalization History SEE ABOVE SURGERY [facility] [employer] Other Chisf complaint+Reason for visit Narrative* Chief Complaint 3 month f/u/ sylvia r eader Reason for Visit BMI 36.0-36.9,adult Dietary counseling and surveillance History of transplantation, renal Hyperlipidemia Hypertension Type 2 diabetes mellitus with hyperglycemia [facility] Work Phone: Evaluation noteNo InformationNortNew [facility]ec[facility] [employer] Other Evaluation noteNo assessment information available [facility] Work Phone: Evaluation note* Diagnosis Onset Date Resolution Status Type 2 diabetes mellitus with hyperglycemia acute [facility] Work Phone: Evaluation note* Diagnosis Onset Date Resolution Status BMI 36.0-36.9,adult acute Dietary counseling and surveillance acute History of transplantation, renal acute Hyperlipidemia acute Hypertension acute Type 2 diabetes mellitus with hyperglycemia acute [facility] Work Phone: Evaluation note* Diagnosis Anemia, unspecified documented [facility] encounter [facility] System[facility]* Diagnosis Onset Date Resolution Status Admit Date BMI 36.0-36.9,adult acute Febru hang2024 9:47am Dietary counseling and surveillance acute July 18 9:47am History of transplantation, renal acute July 18 9:47am Hyperlipidemia acute July 182024 9:47am Hypertension acute July 9:47am Type 2 diabetes mellitus wit h hyperglycemia acute July 18 9:47am [facility] Work Phone: Evaluation note* Diagnosis Spinal stenosis of lumbar region with neurogenic claudication- Primary Spondylolisthesis of lumbar region Lumbar facet arthropathy Spondylosis 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 documented in this encounter [facility] instructionsAmbulatory Orders* Referral to Diabetes Education Location: None Selected [facility] Work Phone: InstructionsNot on filedocumented in this encounter [facility] SystemInstructionsNot on filedocumented in this encounter [facility] SystemInstructionsNot on filedocumented in this encounter [facility] SystemInstructionsNot on filedocumented in this encounter [facility] Summary Purpose Family History Relationship Condition Age [...] Date/ Time Advance Directives No October 08, 4:05pm Advance Directive Response Recorded Date/ Time Advance Directives No October 08 018 5:05pm Chief Complaint and Reason for Visit Chief Complaint 3 Month Follow Up Type 2 DM with Diabetic Neuropathy Chief Complaint NO METER Reason for Visit Type 2 diabetes deloris itus with hyperglycemia Chief Complaint Admit Date 3 month f/u appt. / meter July 18, 2024 9:47am Reason for Visit Admit Date BMI 36.0-36.9,adult July 18, 2024 9 :47am Dietary counseling and surveillance Febr ua2024 9:47am History of transplantation, renal Februa 2024 9:47am Hyperlipidemia July 18, 2024 9 :47am Hypertension July 18, 2024 9 :47am Type 2 diabetes mellitus with hyperglyce ronaldo July 18, 2024 9:47am Additional Source Comments REASON FOR VISIT (unrecogniz ed section and content) Reason Onset Date Comments Med Refill 06/16/2024 Reason Onset Date Comments Med Refill 07/17/2024 Reason Comments Consult New patient, lumbar, xrays in chart Reason Onset Date Comments Med Refill 09/04/2024 INFORMATION SOURCE (unrecogn ized section and content) DATE CREATED AUTHOR 10/24/2022 [facility] DATE CREATED AUTHOR AUTHOR'S ORGANIZ ATION 06/04/2023 [facility] DATE CREATED AUTHOR AUTHOR'S ORGANIZ ATION 07/28/2023 [facility] DATE CREATED AUTHOR AUTHOR'S ORGANIZ ATION 10/02/2023 [facility] DATE CREATED AUTHOR AUTHOR'S ORGANIZ ATION 04/15/2024 [facility] DATE CREATED AUTHOR AUTHOR'S ORGANIZ ATION 05/31/2024 [facility] DATE CREATED AUTHOR AUTHOR'S ORGANIZ ATION 08/12/2024 [facility] DATE CREATED AUTHOR AUTHOR'S ORGANIZ ATION 08/19/2024 [facility] Care Teams (unrecognized sec tion and content) [...] End: May 13, 2023 Jonathan Nick APRN PIG CASTER-C Active Sta rt: May 13, 2023 End: May 13, 2023 Airam Thomas APRN Attending Provider Active Start: May 13, 2023 End: May 13, 2023 Team Status: Inactive Member Role Status Dates OSITO Roberts Primary Care Provider Active S tart: October 04, 2023 End: October 04, 2023 Airam Thomas APRN Attending Provider Active Start: October 04, 2023 End: October 04, 2023 Team Status: Inactive Member Role Status Dates OSITO Roberts Primary Care Provider Active S tart: February 23, 2024 End: February 23, 2024 Airam Thomas APRN Attending Provider Active Start: February 23, 2024 End: February 23, 2024 Hop Weigher Relationship Specialty Start Date End Date Alexandria Howard APRN-CNP [address] [place] [id number] PCP - General Family Medicine 02/16/24 Hop Weigher Relationship Specialty Start Date End Date Alexandria Howard APRN-CNP [address] [place] [address] PCP - General Family Medicine 02/16/24 Team Status: Inactive Member Role Status Dates Marycruz Moreno OSITO Guzman Primary Care Provider Active S tart: July 18, 2024 End: July 18, 2024 Airam Thomas APRN Attending Provider Active Start: July 18, 2024 End: July 18, 2024 Hop Weigher Relationship Specialty Start Date End Date Karl Howardtania Krishna HEATER ROOM HELPER-COASTAL AND ESTUARY SPECIALIST [address] [place] [address] PCP - General Family Medicine 02/16/24 Hop Weigher Relationship Specialty Start Date End Date Anita Alexandria Krishna HEATER ROOM HELPER-COASTAL AND ESTUARY SPECIALIST [address] [place] [address] PCP - General Family Medicine 02/16/24 Hop Weigher Relationship Specialty Start Date End Date Karl Howardtania Krishna HEATER ROOM HELPER-COASTAL AND ESTUARY SPECIALIST [address] [place] [address] PCP - General Family Medicine 02/16/24 Goals [...] BE BASED ON THE PRIMARY CLINICAL RECORDS. [employer] [facility]. provides no warranty or guarantee of the accuracy or completeness of information in this document.
--- NOTE | 2024-09-08 09:36 | MR_ITS ---
The [address] [address] Patient Name: GUSTAVO FLORES MRN: [facility]:[id number] date: 1955 Sex: F Assigned Patient Location: MRI Current Patient Location: MRI Accession/Order Number: [id number] Exam Date: 09/08/2024 10:39 Report Date: 09/08/2024 10:56 At the request of: NON-STAFF PHYSICIAN MD Procedure: MR lumbar spine wo con MRI Lumbar Spine withoutcontrast TECHNIQUE: Multiplanar T1 and T2-weighted imaging of lumbar spine obtained without contrast. HISTORY: Chronic low back pain. Bilateral sciatica. COMPARISON: 05/18/2023 The last fully segmented vertebral pair is operationally defined as L5/S1. POST SURGERY CHANGES: None BONE MARROW INFILTRATION: None BONE MARROW EDEMA: None BONY ALIGNMENT: Adequate bony alignment identified. LUMBAR FRACTURE: Stable T12 compression fracture. Signal changes likely representing hemangioma, unchanged. BONY LESIONS: None KIDNEYS: Left renal atrophy. Right pelvic kidney identified. Consistent with patient's history of renal transplant.. AORTA: No aortic aneurysm is seen. CONUS MEDULLARIS : The distal spinal cord is in adequate position without abnormality. Additional findings CONJOINED NERVE ROOT: None Lower thoracic level: Unremarkable L1-2 :Posterior disc bulging. Similar mild central canal stenosis. Similar mild right neural foraminal narrowing. Similar mild left neural foraminal narrowing. Posterior element hypertrophy. L2-3: Posterior disc protrusion. Moderate to severe central canal stenosis redemonstrated. Moderate right and mild to moderate left neural foraminal narrowing. L3-4: Posterior disc protrusion. Moderate to severe central canal stenosis. Moderate right and mild to moderate left neural foraminal narrowing. Posterior element hypertrophy. L4-5: Mild posterior disc bulge. Moderate to severe central canal stenosis. The greatest in the left lateral recess, unchanged. Mild bilateral neural foraminal narrowing. L5-S1: Mild posterior disc bulge. Developing central to left parasagittal disc protrusion. Concavity of the anterior thecal sac. Mild central canal stenosis. Mild left and patent right neural foramen. MR/MR lumbar spine wo con IMPRESSION: Development of L5-S1 central to left paracentral disc extrusion with concavity of the anterior thecal sac. Redemonstration of moderate to severe central canal stenosis at the L2-3, L3-4 and L4-5 level. Similar bilateral neural foraminal narrowing. Stable chronic T12 compression fracture likely associated hemangioma. No new fractures. Pre-MRI plain film assessment: None Impression dictated by: Roberto Pritchard M.D.09/08/2024 10:56 AM Dictation Location: [place] [address] Electronically authenticated by: [id number] Y Date: 09/08/2024 10:56
== END 2024-09-08 09:32 | disposition home or self-care (01) ==
LOC: MRI 09:31
PROVIDERS: PCP Nurse Practitioner Family
DX: M48.062 Spinal stenosis, lumbar region with neurogenic claudication (principal); M43.16 Spondylolisthesis, lumbar region; M47.816 Spondylosis without myelopathy or radiculopathy, lumbar region; M54.42 Lumbago with sciatica, left side; M54.41 Lumbago with sciatica, right side; G89.29 Other chronic pain; M48.54XD Collapsed vertebra, not elsewhere classified, thoracic region, subsequent encounter for fracture with routine healing
CPT/HCPCS: 72148

== ENCOUNTER 2024-10-05 10:32 | Outpatient (OUT) | payer MEDICARE, SELFPAY ==
--- NOTE | 2024-10-05 10:35 | P.CN_ITS ---
Consult Note: HPI Data of Consult Patient: known to practice within the last 3 years Requesting Physician: Qiana Chiu NP Primary Care Provider: ALEXANDRIA HOWARD Consult Narrative Reason for consult: low back, bilateral lower extremity pain Narrative: 68yof who presents for assessment. continues to have low back, bilateral lower extremity pain. imaging reviewed, which shows moderate to severe stenosis from l2-5. uses baclofen and gabapentin. denies adverse med side effects. failed to benefit from greater than 6 weeks of provider guided HEP. Patient historically has declined interventional therapy and NS consult, however she is now interested in a spinal cord stimulator trial. Pending NS evaluation at [facility]. Pain 12 /10 increasing with all activity improved mildly from rest and current medications. last medication refill was sent in as hydrocodone-acetaminophen 7.5mg not oxycodone-acetaminophen 7.5mg TID to which pt has had severe pain. Pt did not call the office to discuss this issue, instead she trialed the hydrocodone for a few days and disposed of it as it was not effective. 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 - Type 1 diabetes mellitus with ketoacidosis without coma (ICD-10) Kidney failure ?N19 - Unspecified kidney failure (ICD-10) Hypertension ?I10 - Essential (primary) hypertension (ICD-10) Surgical History History of cholecystectomy ?Z90.49 - Acquired absence of other specified parts of digestive tract (ICD- 10) History of arthroscopy of left shoulder ?Z98.890 - Other specified postprocedural states (ICD-10) H/O hand surgery ?Z98.890 - Other specified postprocedural states (ICD-10) H/O section ?Z98.891 - History of uterine scar from previous surgery (ICD-10) H/O cervical spine surgery ?Z98.890 - Other specified postprocedural states (ICD-10) History of tonsillectomy and adenoidectomy ?Z90.89 - Acquired absence of other organs (ICD-10) History of carpal tunnel release of both wrists ?Z98.890 - Other specified postprocedural states (ICD-10) H/O: hysterectomy ?Z90.710 - Acquired absence of both cervix and uterus (ICD-10) Kidney transplant recipient ?Z94.0 - Kidney transplant status (ICD-10) Social History Smoking status: Never smoker Meds Home Medications and Allergies Home Medications ?Medication ?Instructions ?Recorded ?Confirmed ?Type OSCAL 11/23/22 History atorvastatin 40 mg tablet 40 mg PO .HS 11/23/22 04/20/23 History dulaglutide 1.5 mg/0.5 mL 1.5 mg subcut QWEEK 11/23/22 04/20/23 History subcutaneous pen injector (Trulicity) empagliflozin 25 mg tablet 25 mg PO DAILY 11/23/22 04/20/23 History (Jardiance) ferrous sulfate 325 mg (65 mg mg 11/23/22 History iron) tablet gabapentin 600 mg tablet mg PO TID 11/23/22 History insulin aspart U-100 100 unit/mL 30 unit subcut TID 11/23/22 04/20/23 History (3 mL) subcutaneous pen (Novolog FlexPen U-100 Insulin aspart) mycophenolate mofetil 500 mg tablet 800 mg PO BID 11/23/22 04/20/23 History sertraline 100 mg tablet 100 mg PO DAILY 11/23/22 04/20/23 History tacrolimus 1 mg capsule, 3 mg PO Q12H 11/23/22 04/20/23 History immediate-release baclofen 10 mg tablet 10 mg PO TID PRN muscle spasm #90 03/03/23 04/20/23 Rx tabs semaglutide 0.25 mg or 0.5 mg (2 0.25 mg subcut QWEEK 04/20/23 04/20/23 History mg/3 mL) subcutaneous pen injector (Ozempic) semaglutide 0.25 mg or 0.5 mg (2 0.25 mg subcut QWEEK 04/20/23 04/20/23 History mg/3 mL) subcutaneous pen injector (Ozempic) naloxone 4 mg/actuation nasal 4 mg intranasal Q2M #2 ea 04/12/24 Rx spray (Narcan) oxycodone-acetaminophen 7.5 mg-325 1 tab PO TID PRN pain #90 tabs 06/12/24 Rx mg tablet (Percocet) oxycodone-acetaminophen 7.5 mg-325 1 tab PO TID PRN pain #90 tabs 07/10/24 Rx mg tablet (Percocet) oxycodone-acetaminophen 7.5 mg-325 1 tab PO TID PRN pain #90 tabs 08/14/24 Rx mg tablet (Percocet) baclofen 10 mg tablet See Rx Instructions .Route 08/17/24 Rx .COMPLEX PRN muscle spasm #90 tabs hydrocodone 7.5 mg-acetaminophen 1 tab PO TID PRN pain #90 tabs 09/13/24 Rx 325 mg tablet gabapentin 600 mg tablet 600 mg PO QID #120 tabs 09/14/24 Rx Allergies Allergy/AdvReac Type Severity Reaction Status Date / Time No Known Drug Allergies Allergy Verified 01/26/23 10:17 Exam Constitutional Documenting provider has reviewed patient's vital signs: yes Common normals: no apparent distress, oriented x3, healthy appearing, alert and well nourished General appearance: cooperative [facility] Common normals: normocephalic, hearing grossly normal bilaterally and moist oral mucous membranes Head and scalp: normocephalic Eye Common normals: PERRL Pupil: PERRL Neck & C-Spine Common normals: full ROM General: normal visual inspection Chest Common normals: inspection of chest normal Respiratory Common normals: normal respiratory effort, no retractions and no use of accessory muscles Back & Pelvis Lumbar spine/lower back: ROM limited, pain with ROM, straight leg raise positive right and straight leg raise positive left Sacroiliac joints: SI joint(s) abnormal Other: altered sensation to bilateral L4,5,S1 pattern strength 4/5 in BLE Extremity Common normals: normal to inspection and full ROM Neuro Common normals: oriented x3, CN's II-XII intact bilaterally, moves all extremities, no focal motor deficits, no sensory deficits noted and deep tendon reflexes 2+ bilaterally Sensorium/orientation: alert Gait (neuro): antalgic Motor exam: no movement abnormalities noted Psych Common normals: mental status grossly normal, thought process normal, cooperative, affect normal, speech normal and activity/motor behavior normal Speech: normal speech Thought process: normal thought process Results Additional Findings Additional findings: If on a controlled substance or opioids, I have checked an [place]AR[place] report on this patient and there are no aberrancies noted in the prescribing history.??If on a controlled substance or opioid a drug screen was completed and reviewed within the last year, and if there has not been a drug screen completed we ordered one today to monitor higher risk, state monitored pain medication use. As part of providing excellent, safe, comprehensive care, the following was completed at our patient's visit: 1. A medication reconciliation and review to ensure accurate knowledge of current/active medications, including asking our patients to inform us about any [id number] medications or herbal remedies/nutritional supplements/alternative remedies. 2. A review to specifically ensure our patients have had annual screening for screening for depression, screening for tobacco use, and screening for unhealthy alcohol use. For concerning screenings had a discussion with the patient, provided patient education, and recommended follow-up with primary care provider when appropriate. If patient noted with a risk of falling, they received education on strength, gait, and balance training to prevent future risk of falling. Portions of this note may have been carried over from the previous visit and updated as appropriate. Please note this office utilizes paper charting in addition to the electronic medical record. A list of current medications, vitals, and PMH is available there as the clinical staff outside of myself do not have access to [facility] charting during the clinic day operations. As part of providing quality comprehensive care the current medications, vitals, and PMH were reviewed in the paper chart. Assessment and Plan Assessment and Plan (1) Lumbar stenosis with neurogenic claudication: (2) Lumbar spondylosis: (3) Encounter for long-term use of opiate analgesic: Assessment and Plan: I feel these medications are improving the patient's quality of life and allow them to tolerate activities of daily living as well as participate in recreational activity.? The patient does not report intolerable side effects. The patient is NOT opioid naive and non-pharmacologic and non-opioid treatment has failed to significantly relieve the patient's pain and improve functionality. The patient has a diagnosis that is related to a somatic or visceral pain etiology. ? ?? I reviewed with the patient the potential risks and side effects with the use of? opioid medications including but not limited to respiratory depression,? sedation, and even . Within the last 12 months I have verified the patient has access to naloxone should? these effects occur. The patient was advised to let? their family know they had Naloxone in case they would need to administer? the medication. I advised the patient to avoid the use of any other? sedation substances including alcohol, THC, and benzodiazepines while? taking opioid medications due to the risk of compounding side effects and? detrimental outcomes. within the last 12 months I have reviewed the LOCAL HAZMAT DRIVER, pain treatment agreement and urine drug screen.? ?? A drug screen was completed within the last year, and no aberrancies were noted regarding their use of controlled substances. The patient understands they are subject to the terms and conditions of the pain contract that they have signed. ? ?? I have checked an OARRS report on this patient today and there are no aberrancies noted in the prescribing history.? (4) Myofascial pain: Plan continue baclofen 15mg BID PRN pain spasms continue gabapentin 600mg QID, okay to fill 90 day supply as discussed restart percocet 7.5-325mg TID PRN moderate to severe pain continue f/u NS at [facility], pending evaluation isaura previously discussed and prescribed declining lumbar JAELYN at this time f/u post NS consultation
== END 2024-10-05 10:33 ==
PROVIDERS: PCP Nurse Practitioner Family; Visit Provider Nurse Practitioner
DX: M48.062 Spinal stenosis, lumbar region with neurogenic claudication (principal); M47.816 Spondylosis without myelopathy or radiculopathy, lumbar region; Z79.891 Long term (current) use of opiate analgesic; M79.18 Myalgia, other site
CPT/HCPCS: G0463

== ENCOUNTER 2024-12-07 13:10 | Outpatient (OUT) | payer MEDICARE, SELFPAY ==
--- OUTSIDE RECORDS SUMMARY | 2024-06-26 09:00 | XMS_ITS ---
Author Organization [facility] [place] Address [address] [place] [address] Care Team Providers Care Yellow Pages Space Salesperson Name Role Phone Marycruz Medellin Primary Care Provider Dylan Pacheco [phone] REASON FOR VISIT 6 month ov, CKD 2, HTN, albuminuria, Kidney transplant status Encounters Encounter Location Date Provider Diagnosis [facility] [place] [address] [place] [address] 06/26/2024 Dylan Kenny Plan Of Treatment Next Appt Details Provider Name:Dylan Kenny, 02/19/2025 01:20:00 PM, [address] [place], [address], Progress Notes * Lisy FLORESDOB: [birth year] (69 yo F)Acc No.[id number]:06/26/2024 UNLOCKED PROGRESS NOTE Progress Note Patient: Lisy URENA Provider: Chula Kenny MD :1955 A ge:68 Y S ex:Female Date:06/26/2024 Address:[address] [place], [place] [id number] Pcp:OSITO Roberts Subjective: * Chief Complaints: * 1 . 6 month ov. 2. CKD 2. 3. HTN. 4. Albuminuria. 5. Kidney transplant status. * HPI: G eneral: 68 yo F with living related kidney transplant 2012, CKD 2 with baseline Cr around 0.6, [...] Her prograf level is a bit low at 2.9, also on MMF 1g bid. * Medical History: Objective: * Vitals: Assessment: Plan: * Treatment: * * Electronic signature of Dylan Kenny MD, [id number] on 12/07/2024 at 01:13 PM EDT Sign off status: Pending Visit Status: C ANC (Cancelled) * Provider: Chula Kenny MD Date: 0 06/26/2024 Generated for Lashonda phillips/Hiro/Roseliaitting on: 0 12/07/2024 01:13 PM EDT
--- OUTSIDE RECORDS SUMMARY | 2024-12-07 13:12 | XMS_ITS | Encounter Summary ---
Author Organization [employer] Address [id number] [address] [place] [address] Care Team Providers Care Mail Superintendent Name Role Phone Carrie Reddy MURALI-BOILERMAKER HELPER Primary Care Provider + Reason for Visit * Reason Onset Date Comments Med Refill 09/06/2024 Encounter Details Date Type Department Care Team (Late st Contact Info) Description 09/06[facility] [address] [place] [address] Nanette Warren CMA Social History Tobacco Use Types Packs/Day Years Used Date Smoking Tobacco: Never Smokeless Tobacco: Never Alcohol Use Standard Drinks/Week Comments Never 0 (1 standard drink = 0.6 oz pur e alcohol) Social Connection and Isolat ion Panel [NHANES] Answer Date Recorded In a typical week, how many times do you talk on the phone with family, friends, or neighbors? More than three times a week 11/03/2022 How often do you get togethe r with friends or relatives? Three times a week 11/03/2022 How often do you attend chur ch or amish services? More than 4 times per year 11/03/2022 Do you belong to any clubs o r organizations such as hinduism groups, unions, fraternal or athletic groups, or school groups? No 11/03/2022 How often do you attend meet ings of the clubs or organizations you belong to? Never 11/03/2022 Are you , , di vorced, , never , or living with a partner? 11/03/2022 AUDIT-C Answer Date Recorded Frequency of Alcohol Consumption Never 08/15/2020 Average Number of Drinks Not on file 021 Frequency of Binge Drinking Not on file 09/2020 Overall Financial Resource Strain (CARDIA) Answe r Date Recorded How hard is it for you to pa y for the very basics like food, housing, medical care, and heating? Not hard at all 11/03/2022 PHQ-2 Answer Date Recorded Total Score 0 07/13/2024 [facility] Occupational Stress Questionnaire Answer Date Recorded Do you feel stress - tense, restless, nervous, or anxious, or unable to sleep at night because your mind is troubled all the time - these days? To some extent 11/03/2022 Exercise Vital Sign Answer Date Recorde d On average, how many days pe r week do you engage in moderate to strenuous exercise (like a brisk walk)? 0 days 11/03/2022 On average, how many minutes do you engage in exercise at this level? 0 min 11/03/2022 PRAPARE - Transportation Answer Date Re corded In the past 12 months, has l ack of transportation kept you from medical appointments or from getting medications? No 10/13 In the past 12 months, has l ack of transportation kept you from meetings, work, or from getting things needed for daily living? No 11/03/2022 Housing Instability Answer Date Recorde d Are you worried or concerned that in the next two months you may not have stable housing that you own, rent or stay in as a part of a household? No 11/03/2022 Childcare Answer Date Recorded Do problems getting child ca re make it difficult for you to work or study? No 11/03/2022 Employment Answer Date Recorded Do you need help finding a l al career center and/or a training program? No 11/03/2022 Hunger Screening Answer Date Recorded Within the past 12 months we worried whether our food would run out before we got money to buy more. Never True 08/10/2024 Within the past 12 months th e food we bought just didn't last and we didn't have money to get more. Never True 08/10/2024 Purpose - Life Answer Date Recorded I have a purpose and direction in my life. Stron gly Agree 11/03/2022 Comments No Sex and Gender Information Value Date Recorded Sex Assigned at Not on file Legal Sex Female 11:32 AM EDT Gender Identity Not on file Sexual Orientation Not on file documented as of this encounter Plan of Treatment Upcoming Encounters Date Type Department Care Team (Late st Contact Info) Description 12/12/2024 9:40 AM EDT Office Visit [facility] Internal Medicine - Family Medicine [address] [place] [address] documented as of this encounter Visit Diagnoses Not on filedocumented in this encounter Additional Health Concerns Assessment Noted Time PHQ-9 Depression Total Score: 0 07/13/19 25 2:32 PM EST A Body Mass Index follow-up plan has been documented for the patient 08/10/2024 3:58 PM EST documented as of this encounter Care Teams Mail Superintendent Relationship Specialty Start Date End Date Carrie Reddy, DAUB COLOR MIXER-BOILERMAKER HELPER [address] [place] [address] PCP - General Family Medicine 02/16/24 documented as of this encounter
--- OUTSIDE RECORDS SUMMARY | 2024-12-07 13:12 | XMS_ITS | Encounter Summary ---
Author Organization [employer] Address [id number] [address] [place] [address] Care Team Providers Care Air Purifier Servicer Name Role Phone Carrie Reddy MURALI-TIEDOWN OPERATOR Primary Care Provider + Encounter Details Date Type Department Care Team (Late st Contact Info) Description 01/19/2023 Orders Only [facility] Internal Medicine - Family Medicine [address] [place] [id number] External, Scanning Provider Social History Tobacco Use Types Packs/Day Years [...] often do you attend chur ch or orthodoxy services? More than 4 times per year 11/03/2022 Do you belong to any clubs o r organizations such as holiness groups, unions, fraternal or athletic groups, or [...] Frequency of Binge Drinking Not on file 0309/2020 Overall Financial Resource Strain (CARDIA) Answe r Date Recorded How hard is it for you to pa y for the very basics like food, housing, medical care, and heating? Not hard at all 11/03/2022 PHQ-2 Answer Date Recorded Total Score 9 11/03/2022 [facility] - Occupational Stress Questionnaire Answer Date Recorded [...] Recorded Do you need help finding a SeatID al career center and/or a training program? No 11/03/2022 Purpose - Life Answer Date Recorded I have a purpose and direction in my life. Stron gly Agree 11/03/2022 Comments Unknown Sex and Gender Information Value Date Recorded [...] Medicine - Family Medicine [address] [place] [address] documented as of this encounter Procedures Procedure Name Priority Date/Time Associated Diagnosis Comments CT CERVICAL SPINE WO CONT Routine 01/19/2023 3:51 PM EDT documented in this encounter Results * CT cervical spine without contrast (01/19/2023 3:51 PM EDT) Anatomical Region Laterality Modality MSK, Neuro, Spine, C-spine, Spine Covera N/A Computed Tomography us Scanning Provider External IMG CT ORDERABLES Fin al Result documented in this encounter Visit Diagnoses Not on filedocumented in this encounter Additional Health Concerns Assessment Noted Time PHQ-9 Depression Total Score: 9 11/04/19 23 10:00 AM EDT documented as of this encounter Care Teams Air Purifier Servicer Relationship Specialty Start Date End Date Carrie Reddy APRN-TIEDOWN OPERATOR [address] [place] [address] PCP - General Family Medicine 02/16/24 documented as of this encounter
--- OUTSIDE RECORDS SUMMARY | 2024-12-07 13:12 | XMS_ITS | Patient Health Record ---
Author Organization [facility] [place] Address [address] [place] [address] Care Team Providers Care Donkey Doctor Name Role Phone Marycruz Medellin Primary Care Provider Steve JusticedreyDlan [phone] Allergies No Known Allergies Results Component Value Reference Range Notes CBC (COMPLETE BLOOD COUNT) * Reviewed date:12/20/2023 11:53:56 AM Interpretation: Performing Lab:[facility] [address], [place]. [address] PH:[phone] Notes/Report: WBC COUNT 5.3 4.0-11.0 X10E9/L RBC COUNT 4.97 3.80-5.20 X10E12/L HEMOGLOBIN 14.5 11.7-15.5 g/dL HEMATOCRIT 44.8 35-47 % MCV 90 80-100 fL MCH 29.1 27-34 pg MCHC 32.3 32-36 g/dL RDW 13.7 11.5-15.0 % PLATELET COUNT 132 150-450 X10E9/L MPV 11.3 7-12 fL PERFORMED AT [facility] [address] [address] BMP w/GFR Reviewed date:08/17/2024 02:22:03 PM Interpretation: Performing Lab:[facility] [address], [place]. [address] PH:[phone] Notes/Report: SODIUM 137 134-146 mmol/L POTASSIUM 4.1 3.5-5.0 mmol/L CHLORIDE 100 98-109 mmol/L CARBON DIOXIDE 27 22-32 mmol/L ANION GAP 10 5-15 mmol/L BLOOD UREA NITROGEN 16 5-27 mg/dL CREATININE 0.74 0.40-1.00 mg/dL METHOD TRACE ABLE TO IDMS STANDARD GLUCOSE 276 65-99 mg/dL CALCIUM 8.9 8.5-10.5 mg/dL eGFR (CKD-EPI) NON-RACE DEPENDENT 88 >59 ml/min/1.73sq.m Reported eGFR is based on the CKD-EPI 2020 equation that does not use a race coefficient. PERFORMED AT [address] [address] CBC (COMPLETE BLOOD COUNT) * Reviewed date:08/17/2024 02:23:09 PM Interpretation: Performing Lab:[facility] [address] [place] [address]., [address] [address] PH:[phone] Notes/Report: WBC COUNT 6.8 4.0-11.0 X10E9/L RBC COUNT 4.95 3.80-5.20 X10E12/L HEMOGLOBIN 14.6 11.7-15.5 g/dL HEMATOCRIT 44.9 35-47 % MCV 91 80-100 fL MCH 29.5 27-34 pg MCHC 32.5 32-36 g/dL RDW 14.1 11.5-15.0 % PLATELET COUNT 157 150-450 X10E9/L MPV 11.0 7-12 fL PERFORMED AT [address] [address] ALBUMIN Reviewed date:08/17/2024 02:22:08 PM Interpretation: Performing Lab:[facility] [address] [place], [place] [address]., [address] [address] PH:[phone] Notes/Report: ALBUMIN 4.1 3.2-5.3 g/dL PERFORMED AT [address] [address] MAGNESIUM Reviewed date:08/17/2024 02:21:53 PM Interpretation: Performing Lab:[facility] [address] [place], [place] [address]., [address] [address] PH:[phone] Notes/Report: MAGNESIUM 1.9 1.8-2.6 mg/dL PERFORMED AT [address],[place] [address] PHOSPHORUS Reviewed date:08/17/2024 02:21:47 PM Interpretation: Performing Lab:[facility] [address] [place] [address], SUITE [facility], [place]. [address] PH:[phone] Notes/Report: PHOSPHORUS 3.3 2.4-4.9 mg/dL PERFORMED AT [address] [address] MICROALBUMIN WITH RATIO Reviewed date:08/17/2024 02:22:37 PM Interpretation: Performing Lab:[facility] [address] [place] [address], [place] [address], [place]. [address] PH:[phone] Notes/Report: MICROALBUMIN, URINE 6.9 0.0-1.9 mg/dL URINE CREAT 78.22 ALB/CREAT RATIO 88.2 0.0-30.0 mg/g creat PERFO RMED AT [address] [place] [address] URINALYSIS Reviewed date:08/17/2024 02:22:59 PM Interpretation: Performing Lab:[facility] [address] [place] [address], SUITE [facility], [place]. [address] PH:[phone] Notes/Report: COLOR YELLOW YELLOW TURBIDITY CLEAR CLEAR SPECIFIC GRAVITY 1.044 1.003-1.035 NITRITE Negative Negative PH,URINE 6.0 5.0-8.5 LEUKOCYTE ESTERASE Negative Negative HIGH CONC ENTRATIONS OF GLUCOSE MAY DECREASE THE REACTIVITY OF THE DIPSTICK LEUKOCYTE TEST PAD. PROTEIN Trace Negative mg/dL GLUCOSE (URINE) >1000 Negative mg/dL KETONES (URINE) Negative Negative mg/dL UROBILINOGEN <1.1 <1.1 eu/dL BILIRUBIN (URINE) Negative Negative BLOOD/HGB Negative Negative R.B.CELLS 2 0-5 /hpf SQUAMOUS EPITHELIUM 1 0-5 /hpf W.B.CELLS 6 0-5 /hpf PERFORMED AT [address] [place] [address] TACROLIMUS, B Reviewed date:08/21/2024 03:43:35 PM Interpretation: Performing Lab:[facility], [address] [place] [address], [place]. [address] PH:[phone] Notes/Report: Tacrolimus, B 6.2 5.0-15.0 (Trough) ng/mL NOTE ADDITION AL INFORMATION --- Target steady-state trough concentrations vary depending on the type of transplant, concomitant immunosuppression, clinical/institutional protocols, and time post-transplant. Results should be interpreted in conjunction with this clinical information and any physical signs/symptoms of rejection/toxicity. Testing performed by Liquid Chromatography-Tandem Mass Spectrometry (LC-MS/MS). This test was developed and its performance characteristics determined by [facility] in a manner consistent with CLIA requirements. This test has not been cleared or approved by the U.S. Food and Drug Administration. Test Performed by: [place] [address] Cut Out Stitcher: Buddy Ballard Ph.D.; CLIA# [id number] PERFORMED AT [address] [place] [address] TACROLIMUS, B Reviewed date:12/20/2023 11:52:54 AM Interpretation: Performing Lab:[facility], [address] [place] [address]., [place]. [address] PH:[phone] Notes/Report: Tacrolimus, B 2.9 5.0-15.0 (Trough) ng/mL NOTE ADDITION AL INFORMATION --- Target steady-state trough concentrations vary depending on the type of transplant, concomitant immunosuppression, clinical/institutional protocols, and time post-transplant. Results should be interpreted in conjunction with this clinical information and any physical signs/symptoms of rejection/toxicity. Testing performed by Liquid Chromatography-Tandem Mass Spectrometry (LC-MS/MS). This test was developed and its performance characteristics determined by [facility] in a manner consistent with CLIA requirements. This test has not been cleared or approved by the U.S. Food and Drug Administration. Test Performed by: [facility] [address] [place] [address] Cut Out Stitcher: Buddy Ballard Ph.D.; CLIA# [id number] PERFORMED AT [address] [place] [address] URINALYSIS Reviewed date:12/20/2023 11:53:52 AM Interpretation: Performing Lab:[facility] [address] [place] [address] AVE[address], [place]. [address] PH:[phone] Notes/Report: COLOR YELLOW YELLOW TURBIDITY HAZY CLEAR SPECIFIC GRAVITY 1.034 1.003-1.035 NITRITE Negative Negative PH,URINE 6.0 5.0-8.5 LEUKOCYTE ESTERASE Negative Negative PROTEIN 200 Negative mg/dL GLUCOSE (URINE) 200 Negative mg/dL KETONES (URINE) Negative Negative mg/dL UROBILINOGEN <1.1 <1.1 eu/dL BILIRUBIN (URINE) Negative Negative BLOOD/HGB Negative Negative CA OXALATE CRYSTALS PRESENT NONE MUCOUS PRESENT NONE R.B.CELLS <1 0-5 /hpf SQUAMOUS EPITHELIUM <1 0-5 /hpf W.B.CELLS 4 0-5 /hpf PERFORMED AT [address] [place] [address] VITAMIN D 25 HYD TOT Reviewed date:12/20/2023 11:53:03 AM Interpretation: Performing Lab:[facility] [address] [place], [place] [address]E., [address], [place]. [address] PH:[phone] Notes/Report: VITAMIN D 25 HYD TOT 23.6 30-100 ng/mL Vitamin D status 25 [place] Vitamin D Deficiency <20 ng/mL Insufficiency 20-29 ng/mL Sufficiency 30-100 ng/mL Toxicity >100 ng/mL NOTE: A pediatric reference range has not been established by the leather stitcher of this kit. The [place] [employer] recommends a Vitamin D level of = or >20ng/mL in infants and children. PERFORMED AT [address], [place] [address] [facility] Reviewed date:12/20/2023 11:53:13 AM Interpretation: Performing Lab:[facility]), [address] [place] [address] AVE[address] [place], [place] [address]. [address] PH:[phone] Notes/Report: PTH INTACT 50 12-88 pg/mL PERFORMED AT [address] [place] [address] MICROALBUMIN WITH RATIO Reviewed date:12/20/2023 11:53:17 AM Interpretation: Performing Lab:[facility] [address] [place], [place] [address]., [address], [place]. [address] PH:[phone] Notes/Report: MICROALBUMIN, URINE 44.1 0.0-1.9 mg/dL URINE CREAT 231.07 ALB/CREAT RATIO 190.9 0.0-30.0 mg/g creat PERFO RMED AT [address] [place] [address] PHOSPHORUS Reviewed date:12/20/2023 11:53:20 AM Interpretation: Performing Lab:[facility]), [address] [place] [address]., SUITE [facility], [place]. [address] PH:[phone] Notes/Report: PHOSPHORUS 3.0 2.4-4.9 mg/dL PERFORMED AT [address] [place] [address],[place] [address] MAGNESIUM Reviewed date:12/20/2023 11:53:23 AM Interpretation: Performing Lab:[facility] [address] [place] [address] AVE., [address] [facility], [place]. [address] PH:[phone] Notes/Report: MAGNESIUM 1.8 1.8-2.6 mg/dL PERFORMED AT [address] [place] [address],[place] [address] ALBUMIN Reviewed date:12/20/2023 11:53:30 AM Interpretation: Performing Lab:[facility]), [address] [place] [address]., [address] [facility], [place]. [address] PH:[phone] Notes/Report: ALBUMIN 3.9 3.2-5.3 g/dL PERFORMED AT [place] [address] [address] [facility]. [address],[place] [address] BMP w/GFR Reviewed date:12/20/2023 11:53:27 AM Interpretation: Performing Lab:[facility] [address] [place] [address], [address], [place]. [address] PH:[phone] Notes/Report: SODIUM 142 134-146 mmol/L POTASSIUM 3.7 3.5-5.0 mmol/L CHLORIDE 103 98-109 mmol/L CARBON DIOXIDE 28 22-32 mmol/L ANION GAP 11 5-15 mmol/L BLOOD UREA NITROGEN 12 5-27 mg/dL CREATININE 0.63 0.40-1.00 mg/dL METHOD TRACE ABLE TO IDMS STANDARD GLUCOSE 166 65-99 mg/dL CALCIUM 9.1 8.5-10.5 mg/dL eGFR (CKD-EPI) NON-RACE DEPENDENT >90 >59 ml/min/1.73sq.m Reported eGFR is based on the CKD-EPI 2020 equation that does not use a race coefficient. PERFORMED AT [address],[place] [address] Reason For Referral No Information Medications Medication SIG (Take, Route, Frequency, Duration) Notes Start Date End Date Status Apidra 100 UNIT/ML 28-30 units Injectio n TID Not-Taking Alendronate Sodium 10 MG 1 tablet Orally weekly Not-Taking Gabapentin 600 MG 1 tablet Orally QID Active Florastor 250 MG as directed Orally Active Aspirin 81 MG 1 tablet Orally Once a day for 30 day(s) Active Fenofibrate 48 MG 1 tablet Orally Once a day for 30 day(s) Active DULoxetine HCl 60 MG 1 capsule Orally On ce a day for 30 day(s) Active Diclofenac Sodium 1 % as directed Side Seam Envelope Machine Operator ally QID Active B Complex - as directed Orally Active Ferrous Sulfate 325 (65 Fe) MG 1 tablet Orally Once a day for 30 day(s) Active Rosuvastatin Calcium 10 MG 1 tablet Orally Once a day for 30 day(s) Active Zoloft - 50 mg 1 tablet Daily Active traZODone HCl 100 MG 1 tablet at bedtime Orally Once a day for 30 day(s) Active tiZANidine HCl 4 MG 1 tablet as needed Orally BID Active Ozempic (2 MG/DOSE) 8 MG/3ML as directed Subcutaneous Active NovoLOG FlexPen 100 UNIT/ML as directed Subcutaneous Active Mycophenolate Mofetil 250 MG TAKE 4 CAPSULES BY MOUTH TWICE DAILY for 90 Active Jardiance 10 MG 1 tablet Orally Once a day for 30 day(s) Active Atorvastatin Calcium 40 MG 1 tablet Orally Once a day for 30 day(s) Not-Taking Percocet 10-325 MG 1 tablet as needed Orally BID Active Lyrica 50 MG 1 capsule Orally TID Not-Taking Lantus 100 UNIT/ML 54 units Subcutaneou s BID Not-Taking Tacrolimus 1 MG TAKE 2 CAPSULES BY MOUTH IN THE MORNING AND 1 CAPSULE IN THE EVENING for 90 Active Ergocalciferol [address]285 UNIT 1 capsule Orally Weekly Not-Taking Canagliflozin 100 MG 1 tablet Orally Onc e a day for 30 day(s) Not-Taking Social History Tobacco Use: Social History Observation Description Date Details (start date - stop date) Never Smoker NA - NA Tobacco Use/Smoking Question Answer Notes Patient is a nonsmoker Alcohol Screen (Audit-C) Question Answer Notes Did you have a drink containing alcohol in the p ast year? 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) Active confirmed Vital Signs Blood pressure diastolic 82 mm Hg 08/21/2024 Height 5 ft 6 in in 08/21/2024 Blood pressure systolic 142 mm Hg 08/21/2024 Weight 202.6 lbs 08/21/2024 BMI 32.7 kg/m2 08/21/2024 Encounters Encounter Location Date Provider Diagnosis [facility] [place] [address] [place] [address] 12/14/2023 Dylan Kenny Chronic kidney disease, stage II (mild) N18.2 [facility] [place] [address] [place] [address] 08/21/2024 Dylan Kenny Chronic kidney disease, stage II (mild) N18.2 ; Type 2 diabetes mellitus without complications E11.9 ; Living-donor kidney transplant recipient Z94.0 and Albuminuria R80.9 [facility] [address] [place] [address] 12/20/2023 Dylan Kenny Chronic kidney disease, stage II (mild) N18.2 ; Type 2 diabetes mellitus without complications E11.9 ; Albuminuria R80.9 and Kidney transplant status Z94.0 Assessments Encounter Date Diagnosis (ICD Code) Assessment Notes Treatment Notes Treatment Clinical Notes Section Notes 12/20/2023 Chronic kidney disease, stage II (mild) (ICD-10 - N18.2) 12/20/2023 Type 2 diabetes mellitus without complications (ICD-10 - E11.9) 08/21/2024 Chronic kidney disease, stage II (mild) (ICD-10 - N18.2) 08/21/2024 Type 2 diabetes mellitus without complications (ICD-10 - E11.9) 12/14/2023 Chronic kidney disease, stage II (mild) (ICD-10 - N18.2) 08/21/2024 Living-donor kidney transplant recipient (ICD-10 - Z94.0) Cr is stable in the CKD 2 range Albuminuria is minimal, BP is borderline, consider adding a low dose ARB next visit if albuminuria persists and BP is not at goal Continue MMF and prograf for her IS regimen Continue Jardiance for DM control and prevention of CKD progression Avoid all NSAID use Check a prograf level before her next visit No edema present on exam No evidence of infection or rejection 12/20/2023 Albuminuria (ICD-10 - R80.9) 12/20/2023 Kidney transplant status (ICD-10 - Z94.0) 68 yo F with stable CKD 2, 11 years s/p kidney transplant Continue MMF and prograf for her IS regimen No evidence of infection or rejection No edema present on exam today Continue Ozempic and Jardiance for management of her DM Hgb is stable over 13 Albuminuria remains mild Avoid NSAID use Encourage good DM control snf Encourage good daily oral hydration 08/21/2024 Albuminuria (ICD-10 - R80.9) Plan Of Treatment Pending Test Test Name Order Date UA (URINALYSIS, COMPLETE) 12/20/2023 UA (URINALYSIS, COMPLETE) 08/21/2024 UA (URINALYSIS, COMPLETE) 12/14/2023 ALBUMIN, BLOOD 12/14/2023 ALBUMIN, BLOOD 08/21/2024 ALBUMIN, BLOOD 12/20/2023 MAGNESIUM 12/20/2023 MAGNESIUM 08/21/2024 MAGNESIUM 12/14/2023 CBC NO DIFF 12/14/2023 CBC NO DIFF 08/21/2024 CBC NO DIFF 12/20/2023 BMP (BASIC MET PANEL - W/GFR) 12/20/2023 BMP (BASIC MET PANEL - W/GFR) 12/14/2023 MICROALBUMIN with ALB/CREAT RATIO, URINE (MALB)) 12/14/2023 MICROALBUMIN with ALB/CREAT RATIO, URINE (MALB)) 12/20/2023 MICROALBUMIN with ALB/CREAT RATIO, URINE (MALB)) 08/21/2024 PHOSPHORUS 12/20/2023 PHOSPHORUS 08/21/2024 PHOSPHORUS 12/14/2023 PTH INTACT (PARATHYROID HORMONE) 024 PTH INTACT (PARATHYROID HORMONE) 025 TACROLIMUS 12/20/2023 TACROLIMUS 08/21/2024 TACROLIMUS 12/14/2023 VITAMIN D, 25 LEVEL (TOTAL) 12/14/2023 VITAMIN D, 25 LEVEL (TOTAL) 08/21/2024 BMP w/GFR 08/21/2024 MAGNESIUM 01/29/2021 PROTEIN CREAT RATIO 01/29/2021 Tacrolimus 01/29/2021 CBC AND AUTO DIFF * 01/29/2021 RENAL PANEL 01/29/2021 Next Appt Details Provider Name:Dylan Kenny, 02/19/2025 01:20:00 PM, [address] [place] [address], [place], [address], Insurance Providers Payer Name Payer Address Payer Phone Subscriber Number Group Number Insured Name Patient Relationship to Insured Coverage Start Date Coverage End Date [employer] ADV PLAN [address] [place] [address] [id number] [facility] L[facility] Sol[facility] Self - patient is the insured 1 Medical (General) History Medical History History ICD Code History of hyperlipidemia History of diabetes mellitus History of gallstones History of hypertension Renal cell carcinoma Surgical History Surgery Date(Month/Year)
--- OUTSIDE RECORDS SUMMARY | 2024-12-07 13:12 | XMS_ITS | Encounter Summary ---
Author Organization [employer] Address [id number] [address] [place] [address] Care Team Providers Care Aeronautical Research Engineer Name Role Phone Carrie Reddy MURALI[employer]ER [employer] Primary Care Provider + Reason for Visit * Reason Onset Date Comments Med Refill 11/10/2022 Encounter Details Date Type Department Care Team (Late st Contact Info) Description [facility] - Family Medicine [address] [place] [address] Nanette Warren CMA Mixed hyperlipidemia Social History Tobacco Use Types Packs/Day Years [...] often do you attend chur ch or jain services? More than 4 times per year 11/03/2022 Do you belong to any clubs o r organizations such as yazidism groups, unions, fraternal or athletic groups, or [...] Answer Date Recorded Total Score 9 11/03/2022 [facility] - Occupational Stress Questionnaire Answer [...] Do you need help finding a l ocal career center and/or a training program? No [...] Internal Medicine - Family Medicine [address] [place] [address] documented as of this encounter Visit Diagnoses Diagnosis Mixed hyperlipidemia documented in this encounter Additional Health Concerns Assessment Noted Time PHQ-9 Depression Total Score: 9 11/04/19 23 10:00 AM EDT documented as of this encounter Care Teams Aeronautical Research Engineer Relationship Specialty Start Date End Date Carrie Reddy, PLANT GUARD-[employer] [address] [place] [address] PCP - General Family Medicine 02/16/24 documented as of this encounter
--- OUTSIDE RECORDS SUMMARY | 2024-12-07 13:12 | XMS_ITS | Encounter Summary ---
Author Organization [employer] Address [id number] [address] [place] [address] Care Team Providers Care Motion Picture Director Name Role Phone Carrie Reddy Tomi CARRION-TACK MAKER Primary Care Provider + Encounter Details Date Type Department Care Team (Late st Contact Info) Description 04/06/2023 [facility] [address] [place] [address] Nanette Warren CMA Social History Tobacco Use [...] often do you attend chur ch or muslim services? More than 4 times per year 11/03/2022 Do you belong to any clubs o r organizations such as episcopalian groups, unions, fraternal [...] PHQ-2 Answer Date Recorded Total Score 0 04/06/2023 [facility] - Occupational Stress Questionnaire Answer Date Recorded [...] Recorded Do you need help finding a [employer] al career center and/or a training program? No 11/03/2022 Hunger Screening Answer Date Recorded Within the past 12 months we worried whether our food would run out before we got money to buy more. Never True 04/06/2023 Within the past 12 months th e food we bought just didn't last and we didn't have money to get more. Never True 04/06/2023 Purpose - Life Answer Date Recorded I have a purpose and direction in my life. Stron gly Agree 11/03/2022 Comments Unknown Sex and Gender Information Value Date Recorded Sex Assigned at Not on file Legal Sex Female 11:32 AM EDT Gender Identity Not on file Sexual Orientation Not on file documented as of this encounter Miscellaneous Notes * Telephone Encounter - Nanette Warren CMA - 04/06/2023 2:56 PM EDT This patient is scheduled for her Colonoscopy for H/O Polyps on Jul 07 at 9:00am. She took acoupon and would like to try the SuTabs. Please send them to [facility]. * Telephone Encounter - Dylan Galaviz DO - 04/06/2023 2:56 PM EDT Message noted. H&P done. Rx sent. documented in this encounter Plan of Treatment Upcoming Encounters Date Type Department Care Team (Late st Contact Info) Description 12/12/2024 9:40 AM EDT Office Visit [facility] Internal Medicine - Family Medicine [address] [place] [address] documented as of this encounter Visit Diagnoses Not on filedocumented in this encounter Additional Health Concerns Assessment Noted Time PHQ-9 Depression Total Score: 0 04/06/20 23 1:38 PM EDT documented as of this encounter Care Teams Motion Picture Director Relationship Specialty Start Date End Date Carrie Reddy, SHORT GOODS DRIER-TACK MAKER [address] [place] [address] PCP - General Family Medicine 02/16/24 documented as of this encounter
--- OUTSIDE RECORDS SUMMARY | 2024-12-07 13:12 | XMS_ITS | Clinical Summary ---
Author Organization [facility] Address [address] [place] [address] Care Team Providers Care Medical Numerical Control Operator Name Role Phone Unavailable Primary Care Provider Unavailabl e Social History Tobacco Use Types Packs/Day Years Used Date Smoking Tobacco: Never Assessed Comments Unknown Sex and Gender Information Value Date Recorded Sex Assigned at Not on file Legal Sex Female 10:49 PM EDT Gender Identity Not on file Sexual Orientation Not on file Plan of Treatment Health Maintenance Due Date Last Done Comments CT Colonography 1954 Diabetes: Hemoglobin A1C 1954 FIT-DNA 1954 FIT 1954 FOBT 1954 Sigmoidoscopy 1954 Diabetes: Retinopathy Screening 1964 Depression Screening 1966 Diabetes: Urine Protein Screening 1973 Zoster Vaccines (1 of 2) 1973 Adult Tetanus 1976 Fall Risk Screening 09/17/2019 Pneumococcal Vaccine: 50+ Years (4 of 4 - PCV20 or PCV21) 09/23/2020 09/24/2015, 04/19/2013, 02/10/2012 COVID-19 Vaccine ( season) 2024 10/07/2020, 09/06/2020, 08/09/2020 Mammogram 04/21/2025 04/21/2023 Colonoscopy 07/14/2033 07/14/2023 Colorectal Cancer Screening 07/14/2033 HIB Vaccines Aged Out 07/16/2004 No longer eligi ble based on patient's age to complete this topic Influenza Vaccine Completed 04/13/2024, , 04/24/2020, Additional history exists HPV Vaccines Aged Out No longer eligi ble based on patient's age to complete this topic IPV Vaccines Aged Out No longer eligi ble based on patient's age to complete this topic Meningococcal B Vaccine Aged Out No l onger eligible based on patient's age to complete this topic Meningococcal Vaccine Aged Out No lacey moisse eligible based on patient's age to complete this topic Rotavirus Vaccines Aged Out No longer eligible based on patient's age to complete this topic
--- OUTSIDE RECORDS SUMMARY | 2024-12-07 13:12 | XMS_ITS | Encounter Summary ---
Author Organization [employer] s tem Address [id number] [address] [place] [address] Care Team Providers Care Merchandise Presentation Associate Name Role Phone Carrie Reddy Tomi CARRION-DOLLY DRIVER Primary Care Provider + Encounter Details Date Type Department Care Team (Late st Contact Info) Description 09/15/2023 Telephone [facility] Internal Medicine - Family Medicine [address] [place] [phone] Marycruz Guzman, MURALI-TELEPHONE DIRECTORY DISTRIBUTOR DRIVER [address] [place] [address] Social History Tobacco Use Types Packs/Day Years [...] often do you attend chur ch or yazdanism services? More than 4 times per year 11/03/2022 Do you belong to any clubs o r organizations such as jainism groups, unions, fraternal or athletic groups, or [...] Answer Date Recorded Total Score 0 04/06/2023 [facility] of Occupat ional Health - Occupational Stress [...] Recorded Do you need help finding a [facility] and/or a training program? No [...] encounter Miscellaneous Notes * Telephone Encounter - Christelle Bai - 09/15/2023 10:29 AM EDT Patients keila valiente expires 09/16, she needs a new one please * Telephone Encounter - JOSE ALEJANDRO Field - 09/15/2023 10:29 AM EDT Lay it on my desk for signature * Telephone Encounter - Christelle Bai - 09/15/2023 10:29 AM EDT Its in your bin * Telephone Encounter - Christelle Bai - 09/15/2023 10:29 AM EDT Patient notified documented in this encounter Plan of Treatment Upcoming Encounters Date Type Department Care Team (Late st Contact Info) Description 12/12/2024 9:40 AM EDT Office Visit [facility] - Family Medicine [address] [place] [address] documented as of this encounter Visit Diagnoses Not on filedocumented in this encounter Additional Health Concerns Assessment Noted Time PHQ-9 Depression Total Score: 0 04/06/20 23 1:38 PM EDT documented as of this encounter Care Teams Merchandise Presentation Associate Relationship Specialty Start Date End Date Carrie Reddy APRN-DOLLY DRIVER [address] [place] [address] PCP - General Family Medicine 02/16/24 documented as of this encounter
--- OUTSIDE RECORDS SUMMARY | 2024-12-07 13:12 | XMS_ITS | Encounter Summary ---
Author Organization [employer] s tem Address [facility]-[id number] [address] [place] [address] Care Team Providers Care Armhole Sewer Name Role Phone Carrie Reddy CHAMPION OF SUSTAINABLE DESIGN-NP Primary Care Provider + Reason for Visit * Reason Comments Med Refill Encounter Details Date Type Department Care Team (Late st Contact Info) Description 09/03[facility] [address] [place] [address] Carrie Reddy [facility] [address] [place] [address] Mixed hyperlipidemia Social History Tobacco Use Types [...] often do you attend chur ch or temple services? More than 4 times per year 11/03/2022 Do you belong to any clubs o r organizations such as uatsdin groups, unions, fraternal or athletic groups, or [...] Answer Date Recorded Total Score 0 07/13/2024 [facility] of Occupat ional Health - Occupational Stress [...] Recorded Do you need help finding a [facility] career center and/or a training program? No [...] Medicine - Family Medicine [address] [place] [address] documented as of this encounter Visit Diagnoses Diagnosis Mixed hyperlipidemia documented in this encounter Additional Health Concerns Assessment Noted Time PHQ-9 Depression Total Score: 0 07/13/19 25 2:32 PM EST A Body Mass Index follow-up plan has been documented for the patient 08/10/2024 3:58 PM EST documented as of this encounter Care Teams Armhole Sewer Relationship Specialty Start Date End Date Carrie Reddy APRN-NP [address] [place] [address] PCP - General Family Medicine 02/16/24 documented as of this encounter
--- OUTSIDE RECORDS SUMMARY | 2024-12-07 13:12 | XMS_ITS | Encounter Summary ---
Author Organization [employer] s tem Address [facility] [id number] [address] [place] [address] Care Team Providers Care Sport Intern Name Role Phone Carrie Reddy MURALI-PRODUCT SAFETY TEST ENGINEER Primary Care Provider + Encounter Details Date Type Department Care Team (Late st Contact Info) Description 09/15/2023 Orders Only [facility] Internal Medicine - Family Medicine [address] [place] [phone] Marycruz Guzman, MURALI-ENVIRONMENTAL SERVICES AIDE [address] [place] [place] [address] Social History Tobacco Use Types Packs/Day Years [...] often do you attend chur ch or judaism services? More than 4 times per year 11/03/2022 Do you belong to any clubs o r organizations such as mormon groups, unions, fraternal or athletic groups, or [...] Answer Date Recorded Total Score 0 04/06/2023 [facility] of Occupat ional Health - Occupational [...] Recorded Do you need help finding a [facility] and/or a training program? [...] Medicine - Family Medicine [address] [place] [address] documented as of this encounter Visit Diagnoses Not on filedocumented in this encounter Additional Health Concerns Assessment Noted Time PHQ-9 Depression Total Score: 0 04/06/20 23 1:38 PM EDT documented as of this encounter Care Teams Sport Intern Relationship Specialty Start Date End Date Carrie Reddy APRN-PRODUCT SAFETY TEST ENGINEER [address] [place] [address] PCP - General Family Medicine 02/16/24 documented as of this encounter
--- OUTSIDE RECORDS SUMMARY | 2024-12-07 13:12 | XMS_ITS | Encounter Summary ---
Author Organization [employer] Address [id number] [address] [place] [address] Care Team Providers Care Cocktail Lounge Manager Name Role Phone Carrie Reddy Tomi CARRION-DESTINATION SIGN REPAIRER Primary Care Provider + Reason for Visit * Reason Onset Date Comments Med Refill 03/08/2024 Encounter Details Date Type Department Care Team (Late st Contact Info) Description 03/08/2024 [facility] Medicine [address] [place] [address] Arabella, Aaliyah, STATISTICAL GENETICIST Social History Tobacco Use Types Packs/Day Years [...] often do you attend chur ch or alevism services? More than 4 times per year 11/03/2022 Do you belong to any clubs o r organizations such as faith groups, unions, fraternal or athletic groups, or [...] Answer Date Recorded Total Score 0 04/06/2023 [facility] of Occupat ional Health - Occupational Stress [...] Medicine - Family Medicine [address] [place] [address] documented as of this encounter Visit Diagnoses Not on filedocumented in this encounter Additional Health Concerns Assessment Noted Time PHQ-9 Depression Total Score: 0 04/06/20 23 1:38 PM EDT documented as of this encounter Care Teams Cocktail Lounge Manager Relationship Specialty Start Date End Date Carrie Reddy, PERSONAL LINES ACCOUNT MANAGER-DESTINATION SIGN REPAIRER [address] [place] [address] PCP - General Family Medicine 02/16/24 documented as of this encounter
--- OUTSIDE RECORDS SUMMARY | 2024-12-07 13:12 | XMS_ITS | Encounter Summary ---
Author Organization flaregamess tem Address [facility][id number] [address] [place] [address] Care Team Providers Care Sheetmetal Trades Worker Name Role Phone Carrie Reddy WIND FARM ENGINEER-COLLAR PADDER BLINDSTITCH Primary Care Provider + Reason for Visit * Reason Comments Med Refill Encounter Details Date Type Department Care Team (Late Contact Info) Description 10/11/2022 [facility] [address] [place] [address] Marycruz Guzman, WIND FARM ENGINEER-AIRFIELD ENGINEER OFFICER [address] [place] [address] Osteoarthritis of both hands, unspecified osteoarthritis type Social History Tobacco Use Types Packs/Day Years Used Date Smoking Tobacco: Never Smokeless Tobacco: Never Alcohol Use Standard Drinks/Week Comments Never 0 (1 standard drink = 0.6 oz pur e alcohol) AUDIT-C Answer Date Recorded Frequency of Alcohol Consumption Never 08/15/2020 Average Number of Drinks Not on file 021 Frequency of Binge Drinking Not on file 09/2020 Childcare Answer Date Recorded Childcare Unknown 11/23/2018 Employment Answer Date Recorded Employment Unknown 11/23/2018 Purpose - Life Answer Date Recorded Purpose and direction in life Unknown Comments Unknown Sex and Gender Information Value Date Recorded Sex Assigned at Not on file Legal Sex Female 11:32 AM EDT Gender Identity Not on file Sexual Orientation Not on file documented as of this encounter Plan of Treatment Upcoming Encounters Date Type Department Care Team (Late Contact Info) Description 12/12/2024 9:40 AM EDT Office Visit [facility] Medicine - Family Medicine [address] [place] [address] documented as of this encounter Visit Diagnoses Diagnosis Osteoarthritis of both hands, unspecified osteoarthritis type documented in this encounter Care Teams Sheetmetal Trades Worker Relationship Specialty Start Date End Date Carrie Reddy, WIND FARM ENGINEER-COLLAR PADDER BLINDSTITCH [address] [place] [address] PCP - General Family Medicine 02/16/24 documented as of this encounter
--- OUTSIDE RECORDS SUMMARY | 2024-12-07 13:12 | XMS_ITS | Encounter Summary ---
Author Organization [employer] Address [facility][id number] [address] [place] [address] Care Team Providers Care Surtass Analyst Name Role Phone Carrie Reddy MURALI-FACER OPERATOR Primary Care Provider + Reason for Visit * Reason Onset Date Comments Med Refill 03/06/2024 Encounter Details Date Type Department Care Team (Late st Contact Info) Description 03/06/2024 [facility] - Family Medicine [address] [place] [address] Nanette Warren, JESSI Other insomnia Social History Tobacco Use Types Packs/Day Years [...] often do you attend chur ch or buddhism services? More than 4 times per year 11/03/2022 Do you belong to any clubs o r organizations such as evangelical groups, unions, fraternal or athletic groups, or [...] Answer Date Recorded Total Score 0 04/06/2023 [facility] of Occupat ional Health - Occupational [...] Medicine - Family Medicine [address] [place] [address] documented as of this encounter Visit Diagnoses Diagnosis Other insomnia documented in this encounter Additional Health Concerns Assessment Noted Time PHQ-9 Depression Total Score: 0 04/06/20 23 1:38 PM EDT documented as of this encounter Care Teams Surtass Analyst Relationship Specialty Start Date End Date Carrie Reddy APRN-FACER OPERATOR [address] [place] [address] PCP - General Family Medicine 02/16/24 documented as of this encounter
--- OUTSIDE RECORDS SUMMARY | 2024-12-07 13:12 | XMS_ITS | Encounter Summary ---
Author Organization [employer] Address [id number] [address] [place] [address] Care Team Providers Care Electric Pile Driver Operator Name Role Phone Carrie Reddy Tomi ROBLESN-SOLAR INSTALLATION MANAGER Primary Care Provider + Reason for Visit * Reason Comments Med Refill Encounter Details Date Type Department Care Team (Late st Contact Info) Description 11/20/2022 Refill [facility] Internal Medicine - Family Medicine [address] [place] [address] Marycruz Guzman, MURALI-NETWORK DESIGNER [address] [place] [address] Social History Tobacco Use Types Packs/Day Years [...] often do you attend chur ch or orthodox services? More than 4 times per year [...] Answer Date Recorded Total Score 9 11/03/2022 [facility] of Occupat ional Health - Occupational Stress [...] Recorded Do you need help finding a ocal career center and/or a training program? [...] Medicine - Family Medicine [address] [place] [address] documented as of this encounter Visit Diagnoses Not on filedocumented in this encounter Additional Health Concerns Assessment Noted Time PHQ-9 Depression Total Score: 9 11/04/19 23 10:00 AM EDT documented as of this encounter Care Teams Electric Pile Driver Operator Relationship Specialty Start Date End Date Carrie Reddy APRN-SOLAR INSTALLATION MANAGER [address] [place] [address] PCP - General Family Medicine 02/16/24 documented as of this encounter
--- OUTSIDE RECORDS SUMMARY | 2024-12-07 13:12 | XMS_ITS | Referral Summary ---
Author Organization [facility] Address [address] [place] [address] Care Team Providers Care Computer System Specialist Name Role Phone Unavailable Primary Care Provider Unavailabl e Social History Tobacco Use Types Packs/Day Years Used Date Smoking Tobacco: Never Assessed Comments Unknown Sex and Gender Information Value Date Recorded Sex Assigned at Not on file Legal Sex Female 10:49 PM EDT Gender Identity Not on file Sexual Orientation Not on file Plan of Treatment Not on file
--- OUTSIDE RECORDS SUMMARY | 2024-12-07 13:12 | XMS_ITS | Encounter Summary ---
Author Organization [employer] Address [id number] [address] [place] [address] Care Team Providers Care Med Surg Rn Name Role Phone Carrie Reddy MURALI-KILN REMOVER Primary Care Provider + Reason for Visit * Reason Onset Date Comments Med Refill 04/17/2024 Encounter Details Date Type Department Care Team (Late st Contact Info) Description 04/17/2024 [facility] [address] [place] [address] Nanette Warren CMA Social History Tobacco Use [...] any clubs o r organizations such as zoroastrianism groups, unions, fraternal or athletic groups, or [...] PHQ-2 Answer Date Recorded Total Score 0 04/13/2024 [facility] of Occupat ional Health - Occupational [...] got money to buy more. Never True 04/13/2024 Within the past 12 months th e food we bought just didn't last and we didn't have money to get more. Never True 04/13/2024 Purpose - Life Answer Date Recorded I [...] Medicine - Family Medicine [address] [place] [address] documented as of this encounter Visit Diagnoses Not on filedocumented in this encounter Additional Health Concerns Assessment Noted Time PHQ-9 Depression Total Score: 0 04/13/20 24 10:41 AM EDT documented as of this encounter Care Teams Med Surg Rn Relationship Specialty Start Date End Date Carrie Reddy APRN-KILN REMOVER [address] [place] [address] PCP - General Family Medicine 02/16/24 documented as of this encounter
--- OUTSIDE RECORDS SUMMARY | 2024-12-07 13:12 | XMS_ITS | Encounter Summary ---
Author Organization [employer] Address [facility] [id number] [address] [place] [address] Care Team Providers Care Wrapper Stitcher Name Role Phone Carrie Reddy Tomi CARRION-CHILD AND ADOLESCENT THERAPIST Primary Care Provider + Reason for Visit * Reason Onset Date Comments Med Refill 02/09/2024 Encounter Details Date Type Department Care Team (Late st Contact Info) Description 02/09/2024 [facility] [address] [place] [address] Arabella, Aaliyah, TRAFFIC RATE COMPUTER Social History Tobacco Use Types Packs/Day Years [...] often do you attend chur ch or mandaen services? More than 4 times per year 11/03/2022 Do you belong to any clubs o r organizations such as jehovah's witness groups, unions, fraternal or athletic groups, or [...] Answer Date Recorded Total Score 0 04/06/2023 [facility] of Occupat ional Health - [...] encounter Miscellaneous Notes * Telephone Encounter - SHANNON Pearl - 02/09/2024 11:56 AM EDT She no showed her last 3 visits with Marycruz and no PCP is listed. She needs appt before any medication refills. documented in this encounter Plan of Treatment Upcoming Encounters Date Type Department Care Team (Late st Contact Info) Description 12/12/2024 9:40 AM EDT Office Visit [facility] Medicine - Family Medicine [address] [place] [address] documented as of this encounter Visit Diagnoses Not on filedocumented in this encounter Additional Health Concerns Assessment Noted Time PHQ-9 Depression Total Score: 0 04/06/20 23 1:38 PM EDT documented as of this encounter Care Teams Wrapper Stitcher Relationship Specialty Start Date End Date Carrie Reddy APRN-CNP [address] [place] [address] PCP - General Family Medicine 02/16/24 documented as of this encounter
--- OUTSIDE RECORDS SUMMARY | 2024-12-07 13:12 | XMS_ITS | Encounter Summary ---
Author Organization [employer] s tem Address [id number] [address] [place] [address] Care Team Providers Care Bottle Blower Name Role Phone Carrie Reddy USABILITY ENGINEER-DIRECTOR MARKETING COMMUNICATIONS Primary Care Provider + Reason for Visit * Reason Comments Med Refill Encounter Details Date Type Department Care Team (Late Contact Info) Description 10/04/2022 Refill [facility] Internal Medicine - Family Medicine [address] [place] [address] Marycruz Guzman, USABILITY ENGINEER-PHYSICIAN ASST [address] [place] [address] Anemia, unspecified Social History Tobacco Use Types Packs/Day Years [...] Internal Medicine - Family Medicine [address] [place] [address] documented as of this encounter Visit Diagnoses Diagnosis Anemia, unspecified documented in this encounter Care Teams Bottle Blower Relationship Specialty Start Date End Date Carrie Reddy APRN-DIRECTOR MARKETING COMMUNICATIONS [address] [place] [address] PCP - General Family Medicine 02/16/24 documented as of this encounter
--- OUTSIDE RECORDS SUMMARY | 2024-12-07 13:12 | XMS_ITS ---
Author Organization [facility] Address [address] [place] [address] Care Team Providers Care Fur Vault Attendant Name Role Phone Unavailable Primary Care Provider Unavailabl e Transplant Episode Kidney Candidate [facility] ([place], [place]) - [facility] Evaluation began on 10/28/2011 Marked as Deferred on 11/10/2012 Kidney CoordinatorMariam Randall Phone: N/A Fax: N/A Email: N/A Scores Score Value Updated Exceptions/Reas ons CPRA Not available EPTS (Calc) 53 12/07/2024 Care Team Name Role Phone Fax Email Mariam Randall Kidney Coordinator N/A N/A N/A Events Pre-Transplant Referred: 07/14/2011 Evaluation began: 10/28/2011
--- OUTSIDE RECORDS SUMMARY | 2024-12-07 13:12 | XMS_ITS | Encounter Summary ---
Author Organization [employer] Address [facility]-[id number] [address] [place] [address] Care Team Providers Care Slope Hoist Operator Name Role Phone Carrie Reddy MURALI-BARREL ENDSHAKE ADJUSTER Primary Care Provider + Reason for Visit * Reason Onset Date Comments Med Refill 02/07/2024 Encounter Details Date Type Department Care Team (Late st Contact Info) Description 02/07/2024 [facility] [address] [place] [address] Nanette Warren CMA Social History Tobacco Use [...] often do you attend chur ch or mormonism services? More than 4 times per year 11/03/2022 Do you belong to any clubs o r organizations such as restorationism groups, unions, fraternal or athletic groups, or [...] Answer Date Recorded Total Score 0 04/06/2023 [facility] of Occupat ional Health - Occupational [...] Medicine - Family Medicine [address] [place] [address] documented as of this encounter Visit Diagnoses Not on filedocumented in this encounter Additional Health Concerns Assessment Noted Time PHQ-9 Depression Total Score: 0 04/06/20 23 1:38 PM EDT documented as of this encounter Care Teams Slope Hoist Operator Relationship Specialty Start Date End Date Carrie Reddy APRN-BARREL ENDSHAKE ADJUSTER [address] [place] [address] PCP - General Family Medicine 02/16/24 documented as of this encounter
--- OUTSIDE RECORDS SUMMARY | 2024-12-07 13:12 | XMS_ITS | Encounter Summary ---
Author Organization [employer] Address [id number] [address] [place] [address] Care Team Providers Care Census Taker Name Role Phone Carrie Reddy PEA VINER MECHANIC-PIGMENT GRINDER Primary Care Provider + Reason for Visit * Reason Comments Med Refill Encounter Details Date Type Department Care Team (Late Contact Info) Description 10/23/2022 [facility] [address] [place] [address] Marycruz Guzman, MURALI-VICE PRESIDENT OF SOFTWARE DEVELOPMENT [address] [place] [address] Osteoarthritis of both hands, unspecified osteoarthritis type; Other insomnia; Mixed hyperlipidemia Social History Tobacco Use Types [...] Upcoming Encounters Date Type Department Care Team ([facility] Contact Info) Description 12/12/2024 9:40 AM EDT Office Visit [facility] Medicine - Family Medicine [address] [place] [address] documented as of this encounter Visit Diagnoses Diagnosis Osteoarthritis of both hands, unspecified osteoarthritis type Other insomnia Mixed hyperlipidemia documented in this encounter Care Teams Census Taker Relationship Specialty Start Date End Date Carrie Reddy, PEA VINER MECHANIC-PIGMENT GRINDER [address] [place] [address] PCP - General Family Medicine 02/16/24 documented as of this encounter
--- OUTSIDE RECORDS SUMMARY | 2024-12-07 13:12 | XMS_ITS | Encounter Summary ---
Author Organization [employer] Address [facility][id number] [address] [place] [address] Care Team Providers Care Electromechanical Assembler Name Role Phone Carrie Reddy Tomi CARRION-INFORMATION SYSTEMS SPECIALIST Primary Care Provider + Encounter Details Date Type Department Care Team (Late st Contact Info) Description 03/29/2023 [facility] [address] [place] [address] Tracie Johnston CMA Social History Tobacco Use Types Packs/Day [...] 11/03/2022 How often do you attend chur or hindu services? More than 4 times per year 11/03/2022 Do you belong to any clubs o r organizations such as jain groups, unions, fraternal or athletic groups, or [...] Answer Date Recorded Total Score 9 11/03/2022 [facility] - Occupational Stress Questionnaire Answer Date [...] encounter Miscellaneous Notes * Telephone Encounter - Tracie Johnston CMA - 03/29/2023 10:38 AM EDT Pt called and stated she was filling her pills and thinks she dropped her trazadone in the trash. She was wondering if you could send in another prescription. documented in this encounter Plan of Treatment Upcoming Encounters Date Type Department Care Team (Late st Contact Info) Description 12/12/2024 9:40 AM EDT Office Visit [facility] - Family Medicine [address] [place] [address] documented as of this encounter Visit Diagnoses Not on filedocumented in this encounter Additional Health Concerns Assessment Noted Time PHQ-9 Depression Total Score: 9 11/04/19 23 10:00 AM EDT documented as of this encounter Care Teams Electromechanical Assembler Relationship Specialty Start Date End Date Carrie Reddy APRN-INFORMATION SYSTEMS SPECIALIST [address] [place] [address] PCP - General Family Medicine 02/16/24 documented as of this encounter
--- OUTSIDE RECORDS SUMMARY | 2024-12-07 13:13 | XMS_ITS | Encounter Summary ---
Author Organization [employer] s tem Address [place]-[id number] [address] [place] [address] Care Team Providers Care Microbial Specialist Name Role Phone Carrie Reddy Tomi CAD DEVELOPER-RAW STOCK MACHINE FEEDER Primary Care Provider + Reason for Visit * Reason Comments Med Change Request Encounter Details Date Type Department Care Team (Late st Contact Info) Description 05/19[facility]20[facility] [address] [place] [address] Marycruz Guzman, MURALI-COLD SAW OPERATOR [address] [place] [address] Osteoarthritis of both hands, unspecified osteoarthritis type [...] on file Sexual Orientation Not on file COVID-19 Exposure Response Date Recorded In the last month, have you been in contact with someone who was confirmed or suspected to have Coronavirus / COVID-19? No / Unsure 05/19/2022 10:09 AM EST documented as of this encounter Plan of Treatment Upcoming Encounters Date Type Department Care Team (Late st Contact Info) Description 12/12/2024 9:40 AM EDT Office Visit [facility] [address] [place] [address] documented as of this encounter Visit Diagnoses Diagnosis Osteoarthritis of both hands, unspecified osteoarthritis type documented in this encounter Care Teams Microbial Specialist Relationship Specialty Start Date End Date Carrie Reddy, CAD DEVELOPER-RAW STOCK MACHINE FEEDER [address] [place] [address] PCP - General Family Medicine 02/16/24 documented as of this encounter
--- OUTSIDE RECORDS SUMMARY | 2024-12-07 13:13 | XMS_ITS | Encounter Summary ---
Author Organization [employer] s tem Address [id number] [address] [place] [address] Care Team Providers Care Mill Machinist Name Role Phone Carrie Reddy Tomi CARRION-SECURITY SALES MANAGER Primary Care Provider + Encounter Details Date Type Department Care Team (Late st Contact Info) Description 04/16/2023 Orders Only [facility] - Family Medicine [address] [place] [address] Dylan Galaviz, [address] [place] [address] Personal history of colonic polyps (Primary Dx) Social History Tobacco Use Types Packs/Day Years [...] often do you attend chur ch or evangelical services? More than 4 times per year 11/03/2022 Do you belong to any clubs o r organizations such as samaritan groups, unions, fraternal or athletic groups, or [...] Answer Date Recorded Total Score 0 04/06/2023 [facility] of Occupat ional Health - Occupational Stress [...] Recorded Do you need help finding a [facility] career center and/or a training program? [...] Medicine - Family Medicine [address] [place] [address] documented as of this encounter Visit Diagnoses Diagnosis Personal history of colonic polyps- Primary documented in this encounter Additional Health Concerns Assessment Noted Time PHQ-9 Depression Total Score: 0 04/06/20 23 1:38 PM EDT documented as of this encounter Care Teams Mill Machinist Relationship Specialty Start Date End Date Carrie Reddy APRN-SECURITY SALES MANAGER [address] [place] [address] PCP - General Family Medicine 02/16/24 documented as of this encounter
--- OUTSIDE RECORDS SUMMARY | 2024-12-07 13:13 | XMS_ITS | Encounter Summary ---
Author Organization [employer] tem Address [facility] [place]-[id number] [address] [place] [address] Care Team Providers Care Electrician Constructor Supervisor Name Role Phone Carrie Reddy MURALI-STACKER TENDER Primary Care Provider + Encounter Details Date Type Department Care Team ([facility] Contact Info) Description 03/13/2022 [facility] Only [facility] [address] [place] [address] External, Scanning Provider Social History Tobacco Use [...] Description 12/12/2024 9:40 AM EDT [facility] [address] [place] [address] documented as of this encounter Visit Diagnoses Not on filedocumented in this encounter Care Teams Electrician Constructor Supervisor Relationship Specialty Start Date End Date Carrie Reddy, OUTFITTER CABIN-STACKER TENDER [address] [place] [place] [address] PCP - General Family Medicine 02/16/24 documented as of this encounter
--- OUTSIDE RECORDS SUMMARY | 2024-12-07 13:13 | XMS_ITS | Encounter Summary ---
Author Organization [employer] tem Address [facility] [place]-[id number] [address] [place] [address] Care Team Providers Care Tool Grinding Technician Name Role Phone Carrie Reddy BALLISTICS TEACHER-ENVIRONMENTAL MANAGEMENT SPECIALIST Primary Care Provider + Reason for Visit * Reason Comments Med Refill Encounter Details Date Type Department Care Team (Late Contact Info) Description 04/27/2022 Refill [facility] - Family Medicine [address] [place] [address] Marycruz Guzman, BALLISTICS TEACHER-LOT ASSOCIATE [address] [place] [address] Social History Tobacco Use Types Packs/Day Years [...] - Family Medicine [address] [place] [address] documented as of this encounter Visit Diagnoses Not on filedocumented in this encounter Care Teams Tool Grinding Technician Relationship Specialty Start Date End Date Carrie Reddy APRN-ENVIRONMENTAL MANAGEMENT SPECIALIST [address] [place] [address] PCP - General Family Medicine 02/16/24 documented as of this encounter
--- OUTSIDE RECORDS SUMMARY | 2024-12-07 13:13 | XMS_ITS | Encounter Summary ---
Author Organization [employer] tem Address [facility] [place]-[id number] [address] [place] [address] Care Team Providers Care Vision Specialist Name Role Phone Carrie Reddy MURALI-SUPERVISOR CHEMICAL Primary Care Provider + Encounter Details Date Type Department Care Team (Late st Contact Info) Description 05/19/2022 Telephone [facility] - Family Medicine [address] [place] [address] Nanette Warren CMA Social History Tobacco Use [...] AM EST documented as of this encounter Miscellaneous Notes * Telephone Encounter - Nanette Warren CMA - 05/19/2022 12:00 PM EST This patient is scheduled for her Colonoscopy for History of Polyps on Jul 08 at 9:00am. Shewants to know if you could try calling in [employer] for her? documented in this encounter Plan of Treatment Upcoming Encounters Date Type Department Care Team (Late st Contact Info) Description 12/12/2024 9:40 AM EDT Office Visit [facility] - Family Medicine [address] [place] [address] documented as of this encounter Visit Diagnoses Not on filedocumented in this encounter Care Teams Vision Specialist Relationship Specialty Start Date End Date Carrie Reddy APRN-SUPERVISOR CHEMICAL [address] [place] [address] PCP - General Family Medicine 02/16/24 documented as of this encounter
--- OUTSIDE RECORDS SUMMARY | 2024-12-07 13:13 | XMS_ITS | Encounter Summary ---
Author Organization [employer] s tem Address [facility] [place]-[id number] [address] [place] [address] Care Team Providers Care Vending Machine Technician Name Role Phone Carrie Reddy BLAST FURNACE KEEPER HELPER-HAT BRIM CURLER Primary Care Provider + Reason for Visit * Reason Comments Med Refill Encounter Details Date Type Department Care Team (Late st Contact Info) Description 11/04/2024 [facility] [address] [place] [address] Carrie Reddy [facility] [address] [place] [address] Mixed hyperlipidemia Social History Tobacco Use Types [...] often do you attend chur ch or voodoo services? More than 4 times per year [...] Answer Date Recorded Total Score 0 07/13/2024 [facility] [place] of Occupat ional Health - Occupational Stress [...] Recorded Do you need help finding a the [facility] career center and/or a training program? [...] Medicine - Family Medicine [address] [place] [address] documented as of this encounter Visit Diagnoses Diagnosis Mixed hyperlipidemia documented in this encounter Additional Health Concerns Assessment Noted Time PHQ-9 Depression Total Score: 0 07/13/19 25 2:32 PM EST A Body Mass Index follow-up plan has been documented for the patient 08/10/2024 3:58 PM EST documented as of this encounter Care Teams Vending Machine Technician Relationship Specialty Start Date End Date Carrie Reddy APRN-HAT BRIM CURLER [address] [place] [address] PCP - General Family Medicine 02/16/24 documented as of this encounter
--- OUTSIDE RECORDS SUMMARY | 2024-12-07 13:13 | XMS_ITS | Encounter Summary ---
Author Organization [employer] Address [facility]-[id number] [address] [place] [address] Care Team Providers Care Credit Card Specialist Name Role Phone Carrie Reddy MURALI-TOOL DESIGNER Primary Care Provider + Encounter Details Date Type Department Care Team (Late st Contact Info) Description 07/06/2022 [facility] [address] [place] [phone] Nanette Warren CMA Social History Tobacco Use [...] Telephone Encounter - Nanette Warren CMA - 07/06/2022 2:03 PM EST Patient called and said she can not do her Colonoscopy on Jul 11. I have rescheduled her forWed, September 02 At 9:00am documented in this encounter Plan of Treatment Upcoming Encounters Date Type Department Care Team (Late st Contact Info) Description 12/12/2024 9:40 AM EDT Office Visit [facility] - Family Medicine [address] [place] [address] documented as of this encounter Visit Diagnoses Not on filedocumented in this encounter Care Teams Credit Card Specialist Relationship Specialty Start Date End Date Carrie Reddy, MURALI-TOOL DESIGNER [address] [place] [address] PCP - General Family Medicine 02/16/24 documented as of this encounter
--- OUTSIDE RECORDS SUMMARY | 2024-12-07 13:13 | XMS_ITS | Encounter Summary ---
Author Organization [employer] Address [facility] [place]-[id number] [address] [place] [address] Care Team Providers Care Express Clerk Name Role Phone Carrie Reddy Tomi CARRION-MANAGER PRINT Primary Care Provider + Encounter Details Date Type Department Care Team (Late st Contact Info) Description 09/15/2024 Orders Only [facility] - Family Medicine [address] [place] [address] Nanette Warren CMA Spinal stenosis of lumbar region with neurogenic claudication; Spondylolisthesis of lumbar region; Lumbar facet arthropathy; Chronic bilateral low back pain with bilateral sciatica Social History Tobacco Use Types Packs/Day Years [...] any clubs o r organizations such as episcopal groups, unions, fraternal or athletic groups, or [...] Answer Date Recorded Total Score 0 07/13/2024 [facility] of Occupat ional Health - Occupational [...] Recorded Do you need help finding a [facility] and/or a training program? [...] Medicine - Family Medicine [address] [place] [address] documented as of this encounter Procedures Procedure Name Priority Date/Time Associated Diagnosis Comments MR LUMBAR SPINE WO CONT Routine 09/15/2024 12:47 PM EDT Spinal stenosis of lumbar region with neurogenic claudication Spondylolisthesis of lumbar region Lumbar facet arthropathy Chronic bilateral low back pain with bilateral sciatica documented in this encounter Results * MR lumbar spine without contrast (09/15/2024 12:47 PM EDT) Anatomical Region Laterality Modality MSK, Neuro, Spine, L-spine, Spine Covera N/A Magnetic Resonance Heaven Ramos APRN-MANAGER PRINT IM MRI ORDERABLES Tricia l Result documented in this encounter Visit Diagnoses Diagnosis Spinal stenosis of lumbar region with neurogenic claudication Spondylolisthesis of lumbar region Lumbar facet arthropathy 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
--- OUTSIDE RECORDS SUMMARY | 2024-12-07 13:13 | XMS_ITS | Encounter Summary ---
Author Organization [employer] tem Address [facility] [id number] [address] [place] [address] Care Team Providers Care Cte Teacher Name Role Phone Carrie Reddy Tomi CARRION-SENIOR ACCOUNTANT Primary Care Provider + Encounter Details Date Type Department Care Team (Late st Contact Info) Description 04/21/2024 Telephone [facility] - Family Medicine [address] [place] [phone] Lala Haywood CMA Social History Tobacco Use Types Packs/Day [...] often do you attend chur ch or hinduism services? More than 4 times per year 11/03/2022 Do you belong to any clubs o r organizations such as sikhism groups, unions, fraternal or athletic groups, or [...] Answer Date Recorded Total Score 0 04/13/2024 [facility] - Occupational Stress Questionnaire Answer Date [...] Recorded Do you need help finding a [place] career center and/or a training program? No [...] encounter Miscellaneous Notes * Telephone Encounter - Lala Haywood CMA - 04/21/2024 9:43 AM EST Pharmacy called and states that they don't keep the diclofenac cream in stock and were inquiring tosee if you can prescribe her something else. * Telephone Encounter - SHANNON Pearl - 04/21/2024 9:43 AM EST Please call pt and ask because I think she was set on that special cream she was getting when Marycruz was still here. Let her know what the pharmacy said and if shed be ok with changing it * Telephone Encounter - Tracie Johnston CMA - 04/21/2024 9:43 AM EST Patient said to send into her mail in pharmacy documented in this encounter Plan of Treatment Upcoming Encounters Date Type Department Care Team (Late st Contact Info) Description 12/12/2024 9:40 AM EDT Office Visit [facility] - Family Medicine [address] [place] [address] documented as of this encounter Visit Diagnoses Not on filedocumented in this encounter Additional Health Concerns Assessment Noted Time PHQ-9 Depression Total Score: 0 04/13/20 24 10:41 AM EDT documented as of this encounter Care Teams Cte Teacher Relationship Specialty Start Date End Date Carrie Reddy APRN-CNP [address] [place] [address] PCP - General Family Medicine 02/16/24 documented as of this encounter
--- OUTSIDE RECORDS SUMMARY | 2024-12-07 13:13 | XMS_ITS | Encounter Summary ---
Author Organization [employer] s tem Address [id number] [address] [place] [address] Care Team Providers Care Automotive Service Management Teacher Name Role Phone Carrie Reddy Tomi FURNACE ATTENDANT-REAL ESTATE CLOSING COORDINATOR Primary Care Provider + Reason for Visit * Reason Comments Med Refill Encounter Details Date Type Department Care Team (Late st Contact Info) Description 09/01/2022 Refill [facility] - Family Medicine [address] [place] [address] Marycruz Guzman, MURALI-HELP DESK REPRESENTATIVE [address] [place] [place] [address] Radiculopathy due to lumbar intervertebral disc disorder Social History Tobacco Use Types Packs/Day Years [...] have Coronavirus / COVID-19? No / Unsure 09/01/2022 2:46 PM EDT documented as of this encounter Plan of Treatment Upcoming Encounters Date Type Department Care Team (Late st Contact Info) Description 12/12/2024 9:40 AM EDT Office Visit [facility] - Family Medicine [address] [place] [address] documented as of this encounter Visit Diagnoses Diagnosis Radiculopathy due to lumbar intervertebral disc disorder documented in this encounter Care Teams Automotive Service Management Teacher Relationship Specialty Start Date End Date Carrie Reddy APRN-REAL ESTATE CLOSING COORDINATOR [address] [place] [address] PCP - General Family Medicine 02/16/24 documented as of this encounter
--- OUTSIDE RECORDS SUMMARY | 2024-12-07 13:13 | XMS_ITS | Encounter Summary ---
Author Organization [employer] tem Address [id number] [address] [place] [address] Care Team Providers Care Rib Builder Name Role Phone Carrie Reddy Tomi ROBLESN-TRANSFER CAR OPERATOR DRIER Primary Care Provider + Encounter Details Date Type Department Care Team (Late st Contact Info) Description 05/20/2022 Orders Only [facility] - Family Medicine [address] [place] [address] Dylan Galaviz, [address] [place] [address] Personal history of colonic polyps (Primary Dx); History of colon polyps Social History Tobacco Use Types Packs/Day Years [...] Medicine - Family Medicine [address] [place] [address] documented as of this encounter Visit Diagnoses Diagnosis Personal history of colonic polyps- Primary History of colon polyps documented in this encounter Care Teams Rib Builder Relationship Specialty Start Date End Date Carrie Reddy APRN-TRANSFER CAR OPERATOR DRIER [address] [place] [address] PCP - General Family Medicine 02/16/24 documented as of this encounter
--- OUTSIDE RECORDS SUMMARY | 2024-12-07 13:13 | XMS_ITS | Clinical Summary ---
Author Organization [facility] Healthcare Address [address] [place] [address] Care Team Providers Care Director Digital Name Role Phone Unavailable Primary Care Provider Unavailabl e Social History Tobacco Use Types Packs/Day Years Used Date Smoking Tobacco: Never Assessed Comments Unknown Sex and Gender Information Value Date Recorded Sex Assigned at Not on file Legal Sex Female 7:25 PM EDT Gender Identity Not on file Sexual Orientation Not on file Last Filed Vital Signs Vital Sign Reading Time Taken Comments Blood Pressure 134/76 11/25/2018 12:00 PM EDT Pulse - - Temperature - - Respiratory Rate - - Oxygen Saturation - - Inhaled Oxygen Concentration - - Weight 100 kg (221 lb) 09/03/2020 12:00 PM EDT Height 167.6 cm (5' 6 ) 09/03/2020 12:00 PM EDT Body Mass Index 35.67 09/03/2020 12:00 PM EDT Plan of Treatment Not on file Insurance [employer]
--- OUTSIDE RECORDS SUMMARY | 2024-12-07 13:13 | XMS_ITS | Encounter Summary ---
Author Organization [employer] Address [facility] [place]-[id number] [address] [place] [address] Care Team Providers Care Trial Court Judge Name Role Phone Carrie Reddy MURALI-FORGE OPERATOR Primary Care Provider + Encounter Details Date Type Department Care Team (Latest Contact Info) Description 12/06/2024 Travel Social History Tobacco Use Types Packs/Day Years [...] often do you attend chur ch or yazidi services? More than 4 times per year 11/03/2022 Do you belong to any clubs o r organizations such as roman catholic groups, unions, fraternal or athletic groups, or [...] Answer Date Recorded Total Score 0 07/13/2024 [facility] of Occupat ional [facility] - Occupational Stress Questionnaire Answer Date Recorded [...] Recorded Do you need help finding a [facility] career center and/or a training program? [...] Medicine - Family Medicine [address] [place] [address] documented as of this encounter Visit Diagnoses Not on filedocumented in this encounter Additional Health Concerns Assessment Noted Time PHQ-9 Depression Total Score: 0 07/13/19 25 2:32 PM EST A Body Mass Index follow-up plan has been documented for the patient 08/10/2024 3:58 PM EST documented as of this encounter Care Teams Trial Court Judge Relationship Specialty Start Date End Date Carrie Reddy, MICA PLATE LAYER HAND-FORGE OPERATOR [address] [place] [address] PCP - General Family Medicine 02/16/24 documented as of this encounter
--- OUTSIDE RECORDS SUMMARY | 2024-12-07 13:13 | XMS_ITS | Encounter Summary ---
Author Organization [employer] s tem Address [id number] [address] [place] [address] Care Team Providers Care Personnel Consultant Name Role Phone Carrie Reddy Tomi CARRION-UPHOLSTERY INSTRUCTOR Primary Care Provider + Encounter Details Date Type Department Care Team (Late st Contact Info) Description 05/20/2023 Orders Only [facility] Internal Medicine - Family Medicine [address] [place] [address] Marycruz Guzman, MURALI-MUSHROOM GROWTH MEDIA MIXER [address] [place] [address] Social History Tobacco Use Types Packs/Day Years [...] often do you attend chur ch or yarsani services? More than 4 times per year 11/03/2022 Do you belong to any clubs o r organizations such as zoroastrian groups, unions, fraternal or athletic groups, or [...] Answer Date Recorded Total Score 0 04/06/2023 [facility] of Occupat ional Health - Occupational [...] Recorded Do you need help finding a [facility] career center and/or a training program? [...] Medicine - Family Medicine [address] [place] [address] documented as of this encounter Procedures Procedure Name Priority Date/Time Associated Diagnosis Comments MR LUMBAR SPINE WO CONT Routine 05/18/2023 8:41 AM EST documented in this encounter Results * MR lumbar spine without contrast (05/18/2023 8:41 AM EST) Anatomical Region Laterality Modality MSK, Neuro, Spine, L-spine, Spine Covera N/A Magnetic Resonance Marycruz Guzman CHAMPAGNE MAKER-MUSHROOM GROWTH MEDIA MIXER IMG MRI ORDERABLES Final Re sult documented in this encounter Visit Diagnoses Not on filedocumented in this encounter Additional Health Concerns Assessment Noted Time PHQ-9 Depression Total Score: 0 04/06/20 23 1:38 PM EDT documented as of this encounter Care Teams Personnel Consultant Relationship Specialty Start Date End Date Carrie Reddy APRN-UPHOLSTERY INSTRUCTOR [address] [place] [address] PCP - General Family Medicine 02/16/24 documented as of this encounter
--- OUTSIDE RECORDS SUMMARY | 2024-12-07 13:13 | XMS_ITS | Encounter Summary ---
Author Organization [employer] Sys tem Address [id number] [address] [place] [address] Care Team Providers Care Welder Metal Fab Name Role Phone Carrie Reddy Tomi CARRION-GOLF TEACHER Primary Care Provider + Encounter Details Date Type Department Care Team (Late st Contact Info) Description 07/07/2023 [facility] [address] [place] [phone] Nanette Warren CMA Social History Tobacco Use [...] often do you attend chur ch or christian services? More than 4 times per year [...] 0 04/06/2023 [facility] - Occupational Stress Questionnaire Answer Date [...] Recorded Do you need help finding a [employer] career center and/or a training program? [...] Telephone Encounter - Nanette Warren CMA - 07/07/2023 11:59 AM EST This patient called earlier today and she said she missed her Colonoscopy today. She has rescheduled for Jul 14 at 9:45am. She already has the Prep Kit. * Telephone Encounter - Dylan Galaviz DO - 07/07/2023 11:59 AM EST Message noted. documented in this encounter Plan of Treatment Upcoming Encounters Date Type Department Care Team (Late st Contact Info) Description 12/12/2024 9:40 AM EDT Office Visit [facility] Internal Medicine - Family Medicine [address] [place] [address] documented as of this encounter Visit Diagnoses Not on filedocumented in this encounter Additional Health Concerns Assessment Noted Time PHQ-9 Depression Total Score: 0 04/06/20 23 1:38 PM EDT documented as of this encounter Care Teams Welder Metal Fab Relationship Specialty Start Date End Date Carrie Reddy, MURALI-GOLF TEACHER [address] [place] [address] PCP - General Family Medicine 02/16/24 documented as of this encounter
--- OUTSIDE RECORDS SUMMARY | 2024-12-07 13:13 | XMS_ITS | Encounter Summary ---
Author Organization [employer] tem Address [id number] [address] [place] [address] Care Team Providers Care Complaint Supervisor Name Role Phone Carrie Reddy MURALI-PROJECT MANAGEMENT IT SPECIALIST Primary Care Provider + Encounter Details Date Type Department Care Team ([facility] Contact Info) Description 04/01/2022 [facility] [address] [place] [address] External, Scanning Provider Social History [...] Upcoming Encounters Date Type Department Care Team ([facility] Contact Info) Description 12/12/2024 9:40 AM EDT [facility] [address] [place] [address] documented as of this encounter Procedures Procedure Name Priority Date/Time Associated Diagnosis Comments DIABETES EYE EXAM Routine 03/26/2022 documented in this encounter Results * DIABETES EYE EXAM (03/26/2022) us Scanning Provider External HEALTH MAINTENANCE nal Result MANUALLY TRANSCRIBED RESULTS documented in this encounter Visit Diagnoses Not on filedocumented in this encounter Care Teams Complaint Supervisor Relationship Specialty Start Date End Date Carrie Reddy, SEXUAL HEALTH PHYSICIAN-PROJECT MANAGEMENT IT SPECIALIST [address] [place] [address] PCP - General Family Medicine 02/16/24 documented as of this encounter
--- OUTSIDE RECORDS SUMMARY | 2024-12-07 13:13 | XMS_ITS | Encounter Summary ---
Author Organization [employer] s tem Address [facility] [id number] [address] [place] [address] Care Team Providers Care Guitar Maker Hand Name Role Phone Carrie Reddy SURFACE LAY OUT TECHNICIAN-PBX TECHNICIAN Primary Care Provider + Reason for Visit * Reason Comments Med Refill Encounter Details Date Type Department Care Team (Late st Contact Info) Description 07/16/2024 Refill [facility] Internal Medicine - Family Medicine [address] [place] [address] Carrie [facility] [address] [facility] [place] [address] Mixed hyperlipidemia Social History Tobacco Use Types [...] often do you attend chur ch or religion services? More than 4 times per year 11/03/2022 Do you belong to any clubs o r organizations such as taoism groups, unions, fraternal or athletic groups, or [...] Answer Date Recorded Total Score 0 07/13/2024 [facility] [place] of Occupat ional Health - Occupational Stress [...] Recorded Do you need help finding a [facility] career center and/or a training program? No 11/03/2022 Hunger Screening Answer Date Recorded Within the past 12 months we worried whether our food would run out before we got money to buy more. Never True 07/13/2024 Within the past 12 months th e food we bought just didn't last and we didn't have money to get more. Never True 07/13/2024 Purpose - Life Answer Date Recorded I [...] Medicine - Family Medicine [address] [place] [address] documented as of this encounter Visit Diagnoses Diagnosis Mixed hyperlipidemia documented in this encounter Additional Health Concerns Assessment Noted Time PHQ-9 Depression Total Score: 0 07/13/19 25 2:32 PM EST documented as of this encounter Care Teams Guitar Maker Hand Relationship Specialty Start Date End Date Carrie Reddy APRN-PBX TECHNICIAN [address] [place] [address] PCP - General Family Medicine 02/16/24 documented as of this encounter
--- OUTSIDE RECORDS SUMMARY | 2024-12-07 13:13 | XMS_ITS | Clinical Summary ---
Author Organization [employer] Address [id number] [address] [place] [address] Care Team Providers Care Concrete Tile Machine Operator Name Role Phone Carrie Reddy Tomi CARRION-MATE FIRST Primary Care Provider + Allergies No known active allergies Medications tacrolimus (PROGRAF) 1 mg capsule Take 2 capsules (2 mg total) by mouth in the morning and 2 capsules (2 mg total) at noon and 2 capsules (2 mg total) in the evening. Active flash glucose scanning reader (FREESTYLE ENEDELIA 14 DAY READER) misc FreeStyle Enedelia 14 Day [place] Active flash glucose sensor (FREESTYLE ENEDELIA 14 DAY SENSOR) kit FreeStyle Enedelia 14 Day Sensor kit USE DIRECTED CHANGE EVERY 14 DAYS Active alcohol swabs pads, medicated BD Alcohol Swabs Active OZEMPIC 2 mg/dose (8 mg/3 mL) pen injector 02/20/20 22 Active pen needle, diabetic (BD ULTRA-FINE MINI PEN NEEDLE) 31 gauge x 3/16 needle BD Ultra-Fine Mini Pen Needle 31 gauge x 3/16 Active aspirin 81 mg 1 tablet Orally Once a day for 30 day(s) Active empagliflozin (JARDIANCE) 10 mg tablet tablet 1 tablet Orally Once a day for 30 day(s) Active mycophenolate (CELLCEPT) 250 mg capsule 4 capsules Orally BID for 90 days Active gabapentin (NEURONTIN) 600 mg tabletIndications: Radiculopathy due to lumbar intervertebral disc disorder Take 1 tablet (600 mg total) by mouth in the morning and 1 tablet (600 mg total) at noon and 1 tablet (600 mg total) in the evening and 1 tablet (600 mg total) before bedtime. 360 tablet 04/06/20 23 Active sertraline (ZOLOFT) 100 mg tablet TAKE 1 TABLET DAILY 90 tablet 1 05/12/20 23 Active Saccharomyces boulardii (FLORASTOR) 250 mg capsuleIndications :Diabetic polyneuropathy associated with type 2 diabetes mellitus ([facility]) Take 1 capsule (250 mg total) by mouth Daily at 0300. 90 capsule 3 04/17/20 24 Active insulin degludec (TRESIBA FLEXTOUCH U-100) 100 unit/mL (3 mL) insulin pen Inject 60 Units under the skin nightly. Active ferrous sulfate 325 (65 FE) mg tabletIndications: Anemia, unspecified Take 1 tablet (325 mg total) by mouth in the morning and 1 tablet (325 mg total) in the evening. Take with meals. 180 tablet 3 06/19/19 25 Active diclofenac sodium-menthoL 1.5-10 % combo pack Apply 1 Application topically in the morning and 1 Application at noon and 1 Application in the evening and 1 Application before bedtime. 239 mL 1 07/13/19 25 Active cyclobenzaprine (FLEXERIL) 10 mg tablet Take 1 tablet (10 mg total) by mouth 3 (three) times a day as needed. 07/06/19 25 Active oxyCODONE-acetamin ophen (PERCOCET) 7.5-325 mg per tablet Take 1 tablet by mouth 3 (three) times a day as needed for pain. Max Daily Amount: 3 tablets 07/16/19 25 Active traZODone (DESYREL) 150 mg tablet Take 1 tablet (150 mg total) by mouth nightly. 90 tablet 1 09/07/19 25 Active rosuvastatin (CRESTOR) 20 mg tablet Take 1 tablet (20 mg total) by mouth in the morning. 90 tablet 1 11/10/19 25 Active rosuvastatin (CRESTOR) 20 mg tablet Take 1 tablet (20 mg total) by mouth in the morning. 90 tablet 1 09/07/19 25 025 Discontin ued(Reord er) Active Problems Problem Noted Date Diagnosed Date Obesity, morbid 05/19/2022 Insomnia 05/18/2022 Chronic back pain 05/18/2022 Anxiety 05/18/2022 Personal history of colonic polyps 08/15/2020 Overview (03/14/2024): Replacing Diagnosis that were inactivated after 03/14 regulatory import Onychomycosis 01/11/2018 Diabetic neuropathy 01/11/2018 Osteoporosis 10/06/2017 Herniated lumbar intervertebral disc 09/06/2015 Immunosuppression 04/11/2013 History of kidney transplant 04/10/2013 Mixed hyperlipidemia 03/28/2013 DM (diabetes mellitus) 03/28/2013 Essential hypertension 03/28/2013 Resolved Problems Problem Noted Date Diagnosed Date Resolved Date Renal cell carcinoma 03/28/2013 022 Encounters Date Type Department Care Team Description 12/06/2024 Travel 11/09/2024 Orders Only [facility] - [facility] [address] [address] Carrie Reddy INTELLIGENCE CONSULTANT-MATE FIRST 11/04/2024 Refill [facility] - Family Medicine [address] [place] [address] Carrie Reddy, INTELLIGENCE CONSULTANT-MATE FIRST Mixed hyperlipidemia 09/29/2024 Orders Only [facility] [address] [id number] Heaven Ramos, INTELLIGENCE CONSULTANT-MATE FIRST Spinal stenosis of lumbar region with neurogenic claudication (Primary Dx); Spondylolisthesis of lumbar region; Chronic bilateral low back pain with bilateral sciatica 09/15/2024 Orders Only [facility] Internal Medicine - Family Medicine [address] [place] [address] Nanette Warren CMA Spinal stenosis of lumbar region with neurogenic claudication; Spondylolisthesis of lumbar region; Lumbar facet arthropathy; Chronic bilateral low back pain with bilateral sciatica 09/08/2024 Ancillary Procedure [facility] [employer] [address] [place] [address] Back pain, unspecified back location, unspecified back pain laterality, unspecified chronicity 09/06/2024 Refill [facility] Internal Medicine - Family Medicine [address] [place] [address] Nanette Warren CMA 09/06/2024 Orders Only [facility] Internal Medicine - Family Medicine [address] [place] [address] Carrie Reddy APRN-HIMA from Last 3 Months Immunizations Immunization Administration Dates Next Due COVID-19, mRNA, LNP-S, PF, 1 00mcg/0.5mL Dose 10/07/2020,09/06/2020,08/09/2020 DTaP / HIB 07/16/2004 Influenza (IM) Preservative Free 04/10/2016 Influenza Vaccine, Quadrivalent, Adjuvanted 03/15 Influenza, High-dose, Quadrivalent 04/24/2020 Influenza, Im Trivalent Preservative 04/14/2015 Influenza, Injectable, Mdck, Preservative Free, Quad 05/28/2017 Influenza, Trivalent, Adjuvanted 04/13/2024 Pneumococcal Conjugate 13-Valent 09/24/2015 Pneumococcal Polysaccharide 04/19/2013, 2 Family History Medical History Relation Name Comments Coronary artery disease Brother 1 Diabetes Brother 1 Back Problems Brother 2 Coronary artery disease Father Diabetes Father Stroke Father Coronary artery disease Mother Diabetes Mother Hypertension Mother Breast cancer Neg Hx Relation Name Status Comments Brother 1 Brother 2 Alive Father Mother Social History Tobacco Use Types Packs/Day Years [...] often do you attend chur ch or catholic services? More than 4 times per year [...] 07/13/2024 [facility] of Occupat ional Health - Occupational [...] Recorded Do you need help finding a [facility] career [facility] and/or a training [...] Sign Reading Time Taken Comments Blood Pressure 108/68 08/10/2024 1:24 PM EST Pulse 69 08/10/2024 1:24 PM EST Temperature 36.2 C (97.2 F) 07/13/2024 2:32 PM EST Respiratory Rate 18 04/13/2024 10:42 AM EDT Oxygen Saturation 95% 07/13/2024 2:32 PM EST Inhaled Oxygen Concentration - - Weight 91.2 kg (201 lb) 08/10/2024 1:24 PM EST Height 167.6 cm (5' 6 ) 08/10/2024 1:24 PM EST Body Mass Index 32.44 08/10/2024 1:24 PM EST Plan of Treatment Upcoming Encounters Date Type Department Care Team (Late st Contact Info) Description 12/12/2024 9:40 AM EDT Office Visit [facility] - Family Medicine [address] [place] [address] Health Maintenance Due Date Last Done Comments Diabetic Foot Exam 1972 Zoster (Shingles) Vaccine (1 of 2) 1973 DTaP,Tdap and Td Vaccines (2 - Tdap) 07/16/2014 07/16/2004 Diabetic Ophthalmology Exam 04/09/2023 04/09/2022, 1 Medicare Annual Wellness Visit 11/04/2023 11/03/2022 Mammogram 04/21/2024 04/21/2023, 02/21/2018 Influenza Vaccine 02/12/2025 04/13/2024, , 04/24/2020, Additional history exists Depression Screening 07/13/2025 07/13/2024 Fall Risk Screening 07/13/2025 07/13/2024 Adult BMI Follow Up Plan 08/10/2025 08/10/2024 Adult BMI Screening 08/10/2025 08/10/2024 Tobacco Screening 08/10/2025 08/10/2024 COVID-19 Vaccine Discontinued 10/07/2020, , 08/09/2020 Medical Devices Not on file Procedures Procedure Name Priority Date/Time Associated Diagnosis Comments MR LUMBAR SPINE WO CONT Routine 09/15/2024 12:47 PM EDT Spinal stenosis of lumbar region with neurogenic claudication Spondylolisthesis of lumbar region Lumbar facet arthropathy Chronic bilateral low back pain with bilateral sciatica MR LUMBAR SPINE WO CONT Routine 09/08/2024 12:00 AM EDT Back pain, unspecified back location, unspecified back pain laterality, unspecified chronicity MAMM SCREENING BILATERAL W CAD Routine 04/21/2023 10:34 AM EST Encounter for screening mammogram for malignant neoplasm of breast DIABETES EYE EXAM Routine 04/09/2022 from Last 3 Months or Most Recently Relevant to Health Maintenance Results * MR lumbar spine without contrast (09/15/2024 12:47 PM EDT) Only the most recent of2 resultswithin the time period is included. Anatomical Region Laterality Modality MSK, Neuro, Spine, L-spine, Spine Covera N/A Magnetic Resonance Heaven Ramos INTELLIGENCE CONSULTANT-MATE FIRST IM MRI ORDERABLES Tricia l Result * Mammography screening bilateral with CAD (04/21/2023 10:34 AM EST) Anatomical Region Laterality Modality Breast Bilateral Mammography 04/22/2023 9:13 AM EST Narrative 04/22/2023 9:29 AM EST MAMM SCREENING BILATERAL W CAD 04/21/2023 10:04 AM HISTORY: Encounter for screening mammogram for malignant neoplasm of breast TECHNIQUE: Bilateral CC and MLO 3-D tomosynthesis with C-views performed. Computer-aided detection was used in the interpretation of this examination. COMPARISON: Comparison made to previous examinations dating back to 08/06/2015 FINDINGS: Breast density: The breasts are almost entirely fatty. No suspicious calcifications, masses or architectural distortion. There is a stable nodule in the inner aspect of the left breast, only definitively seen on the cc view. IMPRESSION: * No mammographic evidence of malignancy. ASSESSMENT- BI-RADS 2 - Benign Recommendation: Routine screening mammogram in 1 year Finalized by Randy Dolan MD on 04/22/2023 9:29 AM 2 a MAMM 1 YR Procedure Note Randy Dolan MD - 04/22/2023 MAMM SCREENING BILATERAL W CAD 04/21/2023 10:04 AM HISTORY: Encounter for screening mammogram for malignant neoplasm ofbreast TECHNIQUE: Bilateral CC and MLO 3-D tomosynthesis with C-views performed.Computer-aided detection was used in the interpretation of thisexamination. COMPARISON: Comparison made to previous examinations dating back to08/06/2015 FINDINGS: Breast density: The breasts are almost entirely fatty. No suspicious calcifications, masses or architectural distortion. There is a stable nodule in the inner aspect of the left breast, onlydefinitively seen on the cc view. IMPRESSION: * No mammographic evidence of malignancy. ASSESSMENT- BI-RADS 2 - Benign Recommendation: Routine screening mammogram in 1 year Finalized by Randy Dolan MD on 04/22/2023 9:29 AM 2 a MAMM 1 YR us Marycruz Guzman INTELLIGENCE CONSULTANT-SHEETMETAL TRADES WORKER IMG MAMMOGRAPHY ORDERABLES Final Result * DIABETES EYE EXAM (04/09/2022) us Not In System Ref Prov HEALTH MAINTENANCE Final Result MANUALLY TRANSCRIBED RESULTS from Last 3 Months or Most Recently Relevant to Health Maintenance Insurance [facility] MEDICARE Care Teams Concrete Tile Machine Operator Relationship Specialty Start Date End Date Carrie Reddy, INTELLIGENCE CONSULTANT-MATE FIRST [address] [place] [address] PCP - General Family Medicine 02/16/24
--- OUTSIDE RECORDS SUMMARY | 2024-12-07 13:13 | XMS_ITS | Encounter Summary ---
Author Organization [employer] tem Address [id number] [address] [place] [address] Care Team Providers Care Utility Accounts Director Name Role Phone Carrie Reddy INOCULATOR-TRY ON BASTER Primary Care Provider + Reason for Visit * Reason Comments Med Refill Encounter Details Date Type Department Care Team (Late st Contact Info) Description 06/15/2024 [facility] [address] [place] [address] [facility] [address] [facility] [place] [address] Mixed hyperlipidemia Social History Tobacco Use Types [...] often do you attend chur ch or worship services? More than 4 times per year 11/03/2022 Do you belong to any clubs o r organizations such as adventist groups, unions, fraternal or athletic groups, or [...] Answer Date Recorded Total Score 0 04/13/2024 [facility] [place] of Occupat ional Health - Occupational Stress [...] Recorded Do you need help finding a [facility] career center and/or a training program? [...] Medicine - Family Medicine [address] [place] [address] documented as of this encounter Visit Diagnoses Diagnosis Mixed hyperlipidemia documented in this encounter Additional Health Concerns Assessment Noted Time PHQ-9 Depression Total Score: 0 04/13/20 24 10:41 AM EDT documented as of this encounter Care Teams Utility Accounts Director Relationship Specialty Start Date End Date Carrie Reddy, INOCULATOR-TRY ON BASTER [address] [place] [address] PCP - General Family Medicine 02/16/24 documented as of this encounter
--- OUTSIDE RECORDS SUMMARY | 2024-12-07 13:13 | XMS_ITS | Encounter Summary ---
Author Organization [employer] s tem Address [id number] [address] [place] [address] Care Team Providers Care Meteorology Teacher Name Role Phone Carrie Reddy MURALI-LABORER SAWMILL Primary Care Provider + Encounter Details Date Type Department Care Team ([facility] Contact Info) Description 04/09/2022 [facility] [address] [place] [address] Ref Prov, [place] [address] Social History Tobacco Use Types Packs/Day Years [...] Upcoming Encounters Date Type Department Care Team ([facility] Contact Info) Description 12/12/2024 9:40 AM EDT Office Visit [facility] Internal Medicine - Family Medicine [address] [place] [address] documented as of this encounter Procedures Procedure Name Priority Date/Time Associated Diagnosis Comments DIABETES EYE EXAM Routine 04/09/2022 documented in this encounter Results * DIABETES EYE EXAM (04/09/2022) us Not In System Ref Prov HEALTH MAINTENANCE Final Result MANUALLY TRANSCRIBED RESULTS documented in this encounter Visit Diagnoses Not on filedocumented in this encounter Care Teams Meteorology Teacher Relationship Specialty Start Date End Date Carrie Reddy, MURALI-LABORER SAWMILL [address] [place] [address] PCP - General Family Medicine 02/16/24 documented as of this encounter
--- NOTE | 2024-12-07 14:32 | PM.CN ---
Consult Note: HPI Data of Consult Patient: known to practice within the last 3 years Requesting Physician: Qiana Chiu NP Primary Care Provider: ALEXANDRIA HOWARD Consult Narrative Reason for consult: low back, bilateral lower extremity pain Narrative: 69yof who presents for assessment. continues to have low back, bilateral lower extremity pain. imaging reviewed, which shows moderate to severe stenosis from l2-5. uses baclofen and gabapentin. denies adverse med side effects. failed to benefit from greater than 6 weeks of provider guided HEP. Patient historically has declined interventional therapy and NS consult, however she is now interested in a spinal cord stimulator trial. Pending NS evaluation at [facility]. Pain 10/10 increasing with all activity improved mildly from rest and current medications. 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 - Type 1 diabetes mellitus with ketoacidosis without coma (ICD-10) Kidney failure ?N19 - Unspecified kidney failure (ICD-10) Hypertension ?I10 - Essential (primary) hypertension (ICD-10) Surgical History History of cholecystectomy ?Z90.49 - Acquired absence of other specified parts of digestive tract (ICD-10) History of arthroscopy of left shoulder ?Z98.890 - Other specified postprocedural states (ICD-10) H/O hand surgery ?Z98.890 - Other specified postprocedural states (ICD-10) H/O section ?Z98.891 - History of uterine scar from previous surgery (ICD-10) H/O cervical spine surgery ?Z98.890 - Other specified postprocedural states (ICD-10) History of tonsillectomy and adenoidectomy ?Z90.89 - Acquired absence of other organs (ICD-10) History of carpal tunnel release of both wrists ?Z98.890 - Other specified postprocedural states (ICD-10) H/O: hysterectomy ?Z90.710 - Acquired absence of both cervix and uterus (ICD-10) Kidney transplant recipient ?Z94.0 - Kidney transplant status (ICD-10) Social History Smoking status: Never smoker Meds Home Medications and Allergies Home Medications ?Medication ?Instructions ?Recorded ?Confirmed ?Type OSCAL 11/23/22 History atorvastatin 40 mg tablet 40 mg PO .HS 11/23/22 04/20/23 History dulaglutide 1.5 mg/0.5 mL 1.5 mg subcut QWEEK 11/23/22 04/20/23 History subcutaneous pen injector (Trulicity) empagliflozin 25 mg tablet 25 mg PO DAILY 11/23/22 04/20/23 History (Jardiance) ferrous sulfate 325 mg (65 mg mg 11/23/22 History iron) tablet gabapentin 600 mg tablet mg PO TID 11/23/22 History insulin aspart U-100 100 unit/mL 30 unit subcut TID 11/23/22 04/20/23 History (3 mL) subcutaneous pen (Novolog FlexPen U-100 Insulin aspart) mycophenolate mofetil 500 mg tablet 800 mg PO BID 11/23/22 04/20/23 History sertraline 100 mg tablet 100 mg PO DAILY 11/23/22 04/20/23 History tacrolimus 1 mg capsule, 3 mg PO Q12H 11/23/22 04/20/23 History immediate-release baclofen 10 mg tablet 10 mg PO TID PRN muscle spasm #90 03/03/23 04/20/23 Rx tabs semaglutide 0.25 mg or 0.5 mg (2 0.25 mg subcut QWEEK 04/20/23 04/20/23 History mg/3 mL) subcutaneous pen injector (Ozempic) semaglutide 0.25 mg or 0.5 mg (2 0.25 mg subcut QWEEK 04/20/23 04/20/23 History mg/3 mL) subcutaneous pen injector (Ozempic) naloxone 4 mg/actuation nasal 4 mg intranasal Q2M #2 ea 04/12/24 Rx spray (Narcan) oxycodone-acetaminophen 7.5 mg-325 1 tab PO TID PRN pain #90 tabs 06/12/24 Rx mg tablet (Percocet) oxycodone-acetaminophen 7.5 mg-325 1 tab PO TID PRN pain #90 tabs 07/10/24 Rx mg tablet (Percocet) oxycodone-acetaminophen 7.5 mg-325 1 tab PO TID PRN pain #90 tabs 08/14/24 Rx mg tablet (Percocet) baclofen 10 mg tablet See Rx Instructions .Route 08/17/24 Rx .COMPLEX PRN muscle spasm #90 tabs hydrocodone 7.5 mg-acetaminophen 1 tab PO TID PRN pain #90 tabs 09/13/24 Rx 325 mg tablet gabapentin 600 mg tablet 600 mg PO QID #120 tabs 09/14/24 Rx oxycodone-acetaminophen 7.5 mg-325 1 tab PO TID PRN pain #90 tabs 10/05/24 Rx mg tablet (Percocet) oxycodone-acetaminophen 7.5 mg-325 1 tab PO TID PRN pain #90 tabs 11/03/24 Rx mg tablet (Percocet) Allergies Allergy/AdvReac Type Severity Reaction Status Date / Time No Known Drug Allergies Allergy Verified 01/26/23 10:17 Exam Constitutional Documenting provider has reviewed patient's vital signs: yes Common normals: no apparent distress, oriented x3, healthy appearing, alert and well nourished General appearance: cooperative [facility] Common normals: normocephalic, hearing grossly normal bilaterally and moist oral mucous membranes Head and scalp: normocephalic Eye Common normals: PERRL Pupil: PERRL Neck & C-Spine Common normals: full ROM General: normal visual inspection Chest Common normals: inspection of chest normal Respiratory Common normals: normal respiratory effort, no retractions and no use of accessory muscles Back & Pelvis Lumbar spine/lower back: ROM limited, pain with ROM, straight leg raise positive right and straight leg raise positive left Sacroiliac joints: SI joint(s) abnormal Other: altered sensation to bilateral L4,5,S1 pattern strength 4/5 in BLE Extremity Common normals: normal to inspection and full ROM Neuro Common normals: oriented x3, CN's II-XII intact bilaterally, moves all extremities, no focal motor deficits, no sensory deficits noted and deep tendon reflexes 2+ bilaterally Sensorium/orientation: alert Gait (neuro): antalgic Motor exam: no movement abnormalities noted Psych Common normals: mental status grossly normal, thought process normal, cooperative, affect normal, speech normal and activity/motor behavior normal Speech: normal speech Thought process: normal thought process Results Additional Findings Additional findings: If on a controlled substance or opioids, I have checked an [place]AR[place] report on this patient and there are no aberrancies noted in the prescribing history.??If on a controlled substance or opioid a drug screen was completed and reviewed within the last year, and if there has not been a drug screen completed we ordered one today to monitor higher risk, state monitored pain medication use. As part of providing excellent, safe, comprehensive care, the following was completed at our patient's visit: 1. A medication reconciliation and review to ensure accurate knowledge of current/active medications, including asking our patients to inform us about any pqzn-qom-zjczgol medications or herbal remedies/nutritional supplements/alternative remedies. 2. A review to specifically ensure our patients have had annual screening for screening for depression, screening for tobacco use, and screening for unhealthy alcohol use. For concerning screenings had a discussion with the patient, provided patient education, and recommended follow-up with primary care provider when appropriate. If patient noted with a risk of falling, they received education on strength, gait, and balance training to prevent future risk of falling. Portions of this note may have been carried over from the previous visit and updated as appropriate. Please note this office utilizes paper charting in addition to the electronic medical record. A list of current medications, vitals, and PMH is available there as the clinical staff outside of myself do not have access to [employer] charting during the clinic day operations. As part of providing quality comprehensive care the current medications, vitals, and PMH were reviewed in the paper chart. Assessment and Plan Assessment and Plan (1) Lumbar stenosis with neurogenic claudication: (2) Lumbar spondylosis: (3) Encounter for long-term use of opiate analgesic: Assessment and Plan: I feel these medications are improving the patient's quality of life and allow them to tolerate activities of daily living as well as participate in recreational activity.? The patient does not report intolerable side effects. The patient is NOT opioid naive and non-pharmacologic and non-opioid treatment has failed to significantly relieve the patient's pain and improve functionality. The patient has a diagnosis that is related to a somatic or visceral pain etiology. ? ?? I reviewed with the patient the potential risks and side effects with the use of? opioid medications including but not limited to respiratory depression,? sedation, and even . Within the last 12 months I have verified the patient has access to naloxone should? these effects occur. The patient was advised to let? their family know they had Naloxone in case they would need to administer? the medication. I advised the patient to avoid the use of any other? sedation substances including alcohol, THC, and benzodiazepines while? taking opioid medications due to the risk of compounding side effects and? detrimental outcomes. within the last 12 months I have reviewed the SITE MEDICAL DIRECTOR, pain treatment agreement and urine drug screen.? ?? A drug screen was completed within the last year, and no aberrancies were noted regarding their use of controlled substances. The patient understands they are subject to the terms and conditions of the pain contract that they have signed. ? ?? I have checked an OARRS report on this patient today and there are no aberrancies noted in the prescribing history.? (4) Myofascial pain: Plan dc baclofen start methocarbamol 500-1000mg TID PRN pain/spasms continue gabapentin 600mg QID, okay to fill 90 day supply as discussed continue percocet 7.5-325mg TID PRN moderate to severe pain will refer back to [facility] for evaluation isaura previously discussed and prescribed declining lumbar JAELYN at this time f/u post NS consultation and in 6 weeks to evaluate medication changes
== END 2024-12-07 13:11 | disposition home or self-care (01) ==
PROVIDERS: PCP Nurse Practitioner Family; Visit Provider Nurse Practitioner
DX: M48.062 Spinal stenosis, lumbar region with neurogenic claudication (principal); M47.816 Spondylosis without myelopathy or radiculopathy, lumbar region; Z79.891 Long term (current) use of opiate analgesic; M79.18 Myalgia, other site
CPT/HCPCS: G0463

== ENCOUNTER 2025-03-08 08:31 | Outpatient (OUT) | payer MEDICARE, SELFPAY ==
--- OUTSIDE RECORDS SUMMARY | 2024-06-26 09:00 | XMS_ITS ---
Author Organization [facility] [place] Address [address] [place] [address] Care Team Providers Care Field Traffic Investigator Name Role Phone Marycruz Medellin Primary Care Provider Dylan Pacheco [phone] REASON FOR VISIT 6 month ov, CKD 2, HTN, albuminuria, Kidney transplant status Encounters Encounter Location Date Provider Diagnosis [facility] [place] [address] [place] [address] 06/26/2024 Dylan Kenny Plan Of Treatment Next Appt Details Provider Name:Dylan Kenny, 09/03/2025 12:00:00 PM, [address] [place], [address], Progress Notes * Lisy FLORESDOB: [birth year] (69 yo F)Acc No.[id number]:06/26/2024 UNLOCKED PROGRESS NOTE Progress Note Patient: Lisy URENA Provider: Chula Kenny MD :1955 A ge:68 Y S ex:Female Date:06/26/2024 Address:[address] [place], [place] [id number] Pcp:OSITO Roberts Subjective: * Chief Complaints: * [...] * Electronic signature of Dylan Kenny MD, [id number] on 03/08/2025 at 08:39 AM EDT Sign off status: Pending Visit Status: C ANC (Cancelled) * Provider: Chula Kenny MD Date: 0 06/26/2024 Generated for Lashonda phillips/Hiro/Roseliaitting on: 0 03/08/2025 08:39 AM EDT
--- OUTSIDE RECORDS SUMMARY | 2025-02-19 09:20 | XMS_ITS ---
Author Organization The [facility] in [place] Address [address] [facility] [place] [address] Care Team Providers Care Shoe Treer Name Role Phone Marycruz Medellin Primary Care Provider Dylan Pacheco [phone] REASON FOR VISIT CKD 2, HTN, Albuminuria Encounters Encounter Location Date Provider Diagnosis [facility] [place] [address] [place] [address] 02/19/2025 Dylan Kenny Plan Of Treatment Next Appt Details Provider Name:Dylan Kenny, 09/03/2025 12:00:00 PM, [address] [place], [address], Progress Notes * Lisy FLORESDOB: [birth year] (69 yo F)Acc No.[id number]:02/19/2025 UNLOCKED PROGRESS NOTE Progress Note Patient: Lisy URENA Provider: Chula Kenny MD :1955 A ge:69 Y S ex:Female Date:02/19/2025 Address:[address] [place], [place] [address] Pcp:OSITO Roberts Subjective: * Chief Complaints: * 1 . CKD 2. 2. HTN. 3. Albuminuria. * Medical History: Objective: * Vitals: Assessment: Plan: * Treatment: * * Electronic signature of Dylan Kenny MD, [id number] on 03/08/2025 at 08:36 AM EDT Sign off status: Pending Visit Status: R /S (Rescheduled) * Provider: Chula Kenny MD Date: 0 02/19/2025 Generated for Lashonda phillips/Hiro/Kale on: 03/08/2025 08:36 AM EDT
--- OUTSIDE RECORDS SUMMARY | 2025-03-08 08:35 | XMS_ITS | Encounter Summary ---
Author Organization [employer] Address [id number] [address] [place] [address] Care Team Providers Care Excellence Specialist Name Role Phone Carrie Reddy Tomi CARRION-J2EE CONSULTANT Primary Care Provider + Reason for Visit * Reason Onset Date Comments Med Refill 03/08/2024 Encounter Details Date Type Department Care Team (Late st Contact Info) Description [facility] [address] [place] [address] Arabella, Aaliyah, PHARMACIST MANAGER Social History Tobacco Use Types Packs/Day Years [...] often do you attend chur ch or latter-day services? More than 4 times per year 11/03/2022 Do you belong to any clubs o r organizations such as scientologist groups, unions, fraternal or athletic groups, or [...] Answer Date Recorded Total Score 0 04/06/2023 [facility] - Occupational Stress [...] Care Team (Late st Contact Info) Description 12/13/2025 10:00 AM EDT Office Visit [facility] - Family Medicine [address] [place] [address] documented as of this encounter Visit Diagnoses Not on filedocumented in this encounter Additional Health Concerns Assessment Noted Time PHQ-9 Depression Total Score: 0 04/06/20 23 1:38 PM EDT documented as of this encounter Care Teams Excellence Specialist Relationship Specialty Start Date End Date Carrie Reddy, HARDWARE INSTALLER-J2EE CONSULTANT [address] [place] [address] PCP - General Family Medicine 02/16/24 documented as of this encounter
--- OUTSIDE RECORDS SUMMARY | 2025-03-08 08:35 | XMS_ITS | Encounter Summary ---
Author Organization [employer] Address [id number] [address] [place] [address] Care Team Providers Care Customer Engagement Manager Name Role Phone Carrie Reddy MURALI-COURT REPORTER Primary Care Provider + Reason for Visit * Reason Onset Date Comments Med Refill 04/17/2024 Encounter Details Date Type Department Care Team (Late st Contact Info) Description [facility]/17[facility] [address] [place] [address] Nanette Warren CMA Social History Tobacco Use [...] often do you attend chur ch or confucianist services? More than 4 times per year 11/03/2022 Do you belong to any clubs o r organizations such as moravian groups, unions, fraternal or athletic groups, or [...] Answer Date Recorded Total Score 0 04/13/2024 [facility] of Occupat ional Health - Occupational [...] Medicine - Family Medicine [address] [place] [address] documented as of this encounter Visit Diagnoses Not on filedocumented in this encounter Additional Health Concerns Assessment Noted Time PHQ-9 Depression Total Score: 0 04/13/20 24 10:41 AM EDT documented as of this encounter Care Teams Customer Engagement Manager Relationship Specialty Start Date End Date Carrie Reddy APRN-COURT REPORTER [address] [place] [address] PCP - General Family Medicine 02/16/24 documented as of this encounter
--- OUTSIDE RECORDS SUMMARY | 2025-03-08 08:35 | XMS_ITS | Encounter Summary ---
Author Organization [employer] Address [facility] [id number] [address] [place] [address] Care Team Providers Care Deli Associate Name Role Phone Carrie Reddy MURALI-VACCINE MANAGER Primary Care Provider + Reason for Visit * Reason Onset Date Comments Med Refill 03/06/2024 Encounter Details Date Type Department Care Team (Late st Contact Info) Description 03/06/2024 [facility] [address] [place] [address] Nanette Warren, JESSI Other insomnia Social History [...] often do you attend chur ch or synagogue services? More than 4 times per year 11/03/2022 Do you belong to any clubs o r organizations such as oriental orthodox groups, unions, fraternal or athletic groups, or [...] Answer Date Recorded Total Score 0 04/06/2023 [facility] of Occupat ional Health - Occupational [...] Medicine - Family Medicine [address] [place] [address] documented as of this encounter Visit Diagnoses Diagnosis Other insomnia documented in this encounter Additional Health Concerns Assessment Noted Time PHQ-9 Depression Total Score: 0 04/06/20 23 1:38 PM EDT documented as of this encounter Care Teams Deli Associate Relationship Specialty Start Date End Date Carrie Reddy APRN-VACCINE MANAGER [address] [place] [address] PCP - General Family Medicine 02/16/24 documented as of this encounter
--- OUTSIDE RECORDS SUMMARY | 2025-03-08 08:36 | XMS_ITS | Encounter Summary ---
[facility] Address [facility] [id number] [address] [place] [address] Care Team Providers Care Black Leather Buffer Name Role Phone Carrie Reddy CHARGE PREPARATION TECHNICIAN-CUSTOMER EXPERIENCE LEADER Primary Care Provider + Encounter Details Date Type Department Care Team (Late st Contact Info) Description 02/22/2025 Results Follow-Up [facility] [address] [place] [address] Carrie Reddy, CHARGE PREPARATION TECHNICIAN-CUSTOMER EXPERIENCE LEADER [address] [place] [address] CBC without diff Social History Tobacco Use Types Packs/Day Years Used Date Smoking Tobacco: Never Smokeless Tobacco: Never Alcohol Use Standard Drinks/Week Comments Never 0 (1 standard drink = 0.6 oz pur e alcohol) [facility] Utilities Answer Date Recorded In the past 12 [address] has [employer], gas, oil, or water [employer] threatened to shut off services in your home? No 12/12/2024 Social Connection and Isolat ion Panel [NHANES] Answer Date Recorded In a typical week, how many times do you talk on the phone with family, friends, or neighbors? More than three times a week 12/12/2024 How often do you get togethe r with friends or relatives? Three times a week 12/12/2024 How often do you attend chur ch or spiritism services? More than 4 times per year 12/12/2024 Do you belong to any clubs o r organizations such as anglican groups, unions, fraternal or athletic groups, or school groups? No 12/12/2024 How often do you attend meet ings of the clubs or organizations you belong to? Never 12/12/2024 Are you , , di vorced, , never , or living with a partner? 12/12/2024 AUDIT-C Answer Date Recorded Q1: How often do you have a drink containing alcohol? Never 12/12/2024 Q2: How many drinks containi ng alcohol do you have on a typical day when you are drinking? Patient does not drink Q3: How often do you have si x or more drinks on one occasion? Never 12/12/2024 Overall Financial Resource Strain (CARDIA) Answe r Date Recorded How hard is it for you to pa y for the very basics like food, housing, medical care, and heating? Not hard at all 11/03/2022 PHQ-2 Answer Date Recorded Total Score 2 12/12/2024 [facility] - [facility]ational Stress Questionnaire Answer Date Recorded Do you feel stress - tense, restless, nervous, or anxious, or unable to sleep at night because your mind is troubled all the time - these days? Only a little 12/12/2024 Exercise Vital Sign Answer Date Recorde d On average, how many days pe r week do you engage in moderate to strenuous exercise (like a brisk walk)? 0 days 12/12/2024 On average, how many minutes do you engage in exercise at this level? 0 min 12/12/2024 PRAPARE - Transportation Answer Date Re corded [...] Recorded Do you need help finding a [facility] career center and/or a training program? No 11/03/2022 Hunger Screening Answer Date Recorded Within the past 12 months we worried whether our food would run out before we got money to buy more. Never True 12/12/2024 Within the past 12 months th e food we bought just didn't last and we didn't have money to get more. Never True 12/12/2024 Purpose - Life Answer Date Recorded I [...] Medicine - Family Medicine [address] [place] [address] documented as of this encounter Visit Diagnoses Not on filedocumented in this encounter Additional Health Concerns Assessment Noted Time PHQ-9 Depression Total Score: 2 12/13/19 25 9:53 AM EDT A Body Mass Index follow-up plan has been documented for the patient 08/10/2024 3:58 PM EST documented as of this encounter Care Teams Black Leather Buffer Relationship Specialty Start Date End Date Carrie Reddy APRN-CUSTOMER EXPERIENCE LEADER [address] [place] [address] PCP - General Family Medicine 02/16/24 documented as of this encounter
--- OUTSIDE RECORDS SUMMARY | 2025-03-08 08:36 | XMS_ITS | Patient Health Record ---
Author Organization [facility] in [place] Address [address] [place] [address] Care Team Providers Care Certified Income Tax Preparer Name Role Phone Zackbrittaney Marycruz MCNEILL Primary Care Provider Steve Justicedre Dylan Unavailable [phone] Allergies No Known Allergies Results Component Value Reference Range Notes BMP w/GFR Reviewed date:08/17/2024 02:22:03 PM Interpretation: Performing Lab:[facility] ([facility]), [id number], [place]. [address] PH:[phone] Notes/Report: SODIUM 137 134-146 mmol/L POTASSIUM 4.1 3.5-5.0 mmol/L CHLORIDE 100 98-109 mmol/L CARBON DIOXIDE 27 22-32 mmol/L ANION GAP 10 5-15 mmol/L BLOOD UREA NITROGEN 16 5-27 mg/dL CREATININE 0.74 0.40-1.00 mg/dL METHOD TRACE ABLE TO IDMS STANDARD GLUCOSE 276 65-99 mg/dL CALCIUM 8.9 8.5-10.5 mg/dL eGFR (CKD-EPI) NON-RACE DEPENDENT 88 >59 ml/min/1.73sq.m not use a race coefficient. Reported eGFR is based on the PERFORMED AT [place] [address] [address] CKD-EPI 2020 equation that does CBC (COMPLETE BLOOD COUNT) * Reviewed date:08/17/2024 02:23:09 PM Interpretation: Performing Lab:[facility] ([facility]), [address], [place]. [address] PH:[phone] Notes/Report: WBC COUNT 6.8 4.0-11.0 X10E9/L RBC COUNT 4.95 3.80-5.20 X10E12/L HEMOGLOBIN 14.6 11.7-15.5 g/dL HEMATOCRIT 44.9 35-47 % MCV 91 80-100 fL MCH 29.5 27-34 pg MCHC 32.5 32-36 g/dL RDW 14.1 11.5-15.0 % PLATELET COUNT 157 150-450 X10E9/L MPV 11.0 7-12 fL PERFORMED AT [address] [place] [address] ALBUMIN Reviewed date:08/17/2024 02:22:08 PM Interpretation: Performing Lab:[facility] ([facility]), [address] [place], [place] [address]E., [address] [place] [address]. [address] PH:[phone] Notes/Report: ALBUMIN 4.1 3.2-5.3 g/dL PERFORMED AT [address] [place] [address] MAGNESIUM Reviewed date:08/17/2024 02:21:53 PM Interpretation: Performing Lab:[facility] ([facility]), [address] [place] [address] AVE[address] [place] [address]. [address] PH:[phone] Notes/Report: MAGNESIUM 1.9 1.8-2.6 mg/dL PERFORMED AT [address] [place] [address] PHOSPHORUS Reviewed date:08/17/2024 02:21:47 PM Interpretation: Performing Lab:[facility] ([facility]), [address] [place] [address] AVE[address] [place] [address]. [address] PH:[phone] Notes/Report: PHOSPHORUS 3.3 2.4-4.9 mg/dL PERFORMED AT [address] [place] [address] MICROALBUMIN WITH RATIO Reviewed date:08/17/2024 02:22:37 PM Interpretation: Performing Lab:[facility] ([facility]), [address] [place] [address] AVE[address] [place] [address]. [address] PH:[phone] Notes/Report: MICROALBUMIN, URINE 6.9 0.0-1.9 mg/dL URINE CREAT 78.22 ALB/CREAT RATIO 88.2 0.0-30.0 mg/g creat PERFO RMED AT [address] [address] URINALYSIS Reviewed date:08/17/2024 02:22:59 PM Interpretation: Performing Lab:[facility] ([facility]), [address] [place] [address], [address] [address] PH:[phone] Notes/Report: COLOR YELLOW YELLOW TURBIDITY CLEAR CLEAR [...] /hpf W.B.CELLS 6 0-5 /hpf PERFORMED AT [address] [address] BMP w/GFR Reviewed date:02/23/2025 11:51:59 AM Interpretation: Performing Lab: Notes/Report: SODIUM 138 134-146 mmol/L POTASSIUM 4.2 3.5-5.0 mmol/L CHLORIDE 100 98-109 mmol/L CARBON DIOXIDE 23 22-32 mmol/L ANION GAP 15 5-15 mmol/L BLOOD UREA NITROGEN 18 5-27 mg/dL CREATININE 0.71 0.40-1.00 mg/dL METHOD TRACE ABLE TO IDHI STANDARD GLUCOSE 255 65-99 mg/dL CALCIUM 9.1 8.5-10.5 mg/dL EGFR (CKD-EPI) NON-RACE DEPENDENT >90 >=60 ml/min/1.73sq.m not use a race coefficient. Reported eGFR is based on the CKD-EPI 2020 equation that does PERFORMED AT [address] [address] CBC (COMPLETE BLOOD COUNT) * Reviewed date:02/23/2025 11:53:00 AM Interpretation: Performing Lab: Notes/Report: WBC 5.5 4-11 x10E9/L RBC COUNT 4.90 3.8-5.2 X10E12/L HEMOGLOBIN 14.3 11.7-15.5 g/dL HEMATOCRIT 43.7 35-47 % MCV 89 80-100 fL MCH 29.1 27-34 pg MCHC 32.6 32-36 g/dL RDW 14.1 11.5-15 % PLATELET COUNT 122 150-450 X10E9/L MPV 11.6 7-12 fL PERFORMED AT [address] [address] ALBUMIN Reviewed date:02/23/2025 11:51:40 AM Interpretation: Performing Lab: Notes/Report: ALBUMIN 4.2 3.2-5.3 g/dL PERFORMED AT [address] [address] MAGNESIUM Reviewed date:02/23/2025 11:52:23 AM Interpretation: Performing Lab: Notes/Report: MAGNESIUM 2.0 1.8-2.6 mg/dL PERFORMED AT [address], [place] [address] PHOSPHORUS Reviewed date:02/23/2025 11:52:10 AM Interpretation: Performing Lab: Notes/Report: PHOSPHORUS 3.7 2.4-4.9 mg/dL PERFORMED AT [address], [place] [address] MICROALBUMIN WITH RATIO Reviewed date:02/23/2025 11:51:31 AM Interpretation: Performing Lab: Notes/Report: URINE CREATININE,RDM 45.93 MALB/CREAT RATIO 132.8 0.0-30.0 mg/g MICROALBUMIN, URINE 6.1 0.0-1.9 mg/dL PERFORMED AT [address] [place] [address] P[facility] ([facility]) Reviewed date:02/23/2025 11:52:42 AM Interpretation: Performing Lab: Notes/Report: PTH INTACT 51 12-88 pg/mL PERFORMED AT [address], [place] [address] VITAMIN D 25 HYD TOT Reviewed date:02/23/2025 11:52:33 AM Interpretation: Performing Lab: Notes/Report: VITAMIN D 25 HYD TOT 31.7 30.0-100.0 ng/mL Sufficiency 30-100 ng/mL Vitamin D status 25 [place] Vitamin D Toxicity >100 ng/mL Deficiency <20 ng/mL NOTE: A pediatric reference range has not been established by the french edge operator of this kit. The [place] [employer] recommends a Vitamin D level of = or >20ng/mL in infants and children. Insufficiency 20-29 ng/mL PERFORMED AT [address], [place] [address] URINALYSIS Reviewed date:02/26/2025 09:10:10 AM Interpretation: Performing Lab: Notes/Report: COLOR Yellow Yellow TURBIDITY Clear Clear SPECIFIC GRAVITY 1.035 1.003-1.035 NA NITRITE Negative Negative PH,URINE 5.0 5.0-8.5 NA LEUKOCYTE ESTERASE Negative Negative High Conc entrations of Glucose May Decrease the Reactivity of the Dipstick Leukocyte Test Pad. PROTEIN Negative Negative KETONES (URINE) Negative Negative UROBILINOGEN <1.1 eu/dL <1.1 eu/dL BILIRUBIN (URINE) Negative Negative BLOOD/HGB Negative Negative GLUCOSE (URINE) >1000 mg/dL Negative Urine received without preservative. Delays in transport may affect results. Interpret with caution. A clinical correlation is recommended. PERFORMED AT [address] [address] TACROLIMUS, B Reviewed date:02/26/2025 09:09:53 AM Interpretation: Performing Lab: Notes/Report: TACROLIMUS, B 4.1 5.0-15.0 (Trough ) ng/mL ADDITIO NAL INFORMATION ---- [facility] [place] [address] Test Performed by: Spectrometry (LC-MS/MS). Target steady-state trough concentrations vary depending on Testing performed by Liquid Chromatography-Tandem Mass the type of transplant, concomitant immunosuppression, [facility] Manager Reliability: Buddy Ballard Ph.D.; CLIA# [id number] determined by [facility] in a manner consistent with CLIA Results should be interpreted in conjunction with this This test was developed and its performance characteristics clinical/institutional protocols, and time post-transplant. the U.S. Food and Drug Administration. requirements. This test has not been cleared or approved by rejection/toxicity. clinical information and any physical signs/symptoms of TACROLIMUS, B Reviewed date:08/21/2024 03:43:35 PM Interpretation: Performing Lab:[facility], [address] [place] [address]. [address] PH:[phone] Notes/Report: Tacrolimus, B 6.2 5.0-15.0 (Trough ) ng/mL Spectrometry (LC-MS/MS). Test Performed by: ADDITIO NAL INFORMATION ---- clinical information and any physical signs/symptoms of NOTE rejection/toxicity. the U.S. Food and Drug Administration. Manager Reliability: Buddy Ballard Ph.D.; CLIA# [id number] requirements. This test has not been cleared or approved by clinical/institutional protocols, and time post-transplant. PERFORMED AT [address] [place] [address] determined by [facility] in a manner consistent with CLIA Results should be interpreted in conjunction with this This test was developed and its performance characteristics [facility] [address] [place] [address] Target steady-state trough concentrations vary depending on Testing performed by Liquid Chromatography-Tandem Mass the type of transplant, concomitant immunosuppression, Reason For Referral No Information Medications Medication SIG (Take, Route, Frequency, Duration) Notes Start Date End Date Status Fenofibrate 48 MG 1 tablet Orally Once a day; Duration: 30 day(s) Active DULoxetine HCl 60 MG 1 capsule Orally On ce a day; Duration: 30 day(s) Active Diclofenac Sodium 1 % as directed Field Technical Specialist ally QID Active Lyrica 50 MG 1 capsule Orally TID Not-Taking B Complex - as directed Orally Active Lantus 100 UNIT/ML 54 units Subcutaneou s BID Not-Taking Aspirin 81 MG 1 tablet Orally Once a day; Duration: 30 day(s) Active Ergocalciferol 03480 UNIT 1 capsule Orally Weekly Not-Taking Canagliflozin 100 MG 1 tablet Orally Onc e a day; Duration: 30 day(s) Not-Taking Atorvastatin Calcium 40 MG 1 tablet Orally Once a day; Duration: 30 day(s) Not-Taking Apidra 100 UNIT/ML 28-30 units Injectio n TID Not-Taking Gabapentin 600 MG 1 tablet Orally QID Active Florastor 250 MG as directed Orally Active Ferrous Sulfate 325 (65 Fe) MG 1 tablet Orally Once a day; Duration: 30 day(s) Active Alendronate Sodium 10 MG 1 tablet Orally weekly Not-Taking tiZANidine HCl 4 MG 1 tablet as needed Orally BID Active Tacrolimus 1 MG TAKE 2 CAPSULES BY MOUTH IN THE MORNING AND 1 CAPSULE IN THE EVENING; Duration: 90 Active Rosuvastatin Calcium 10 MG 1 tablet Orally Once a day; Duration: 30 day(s) Active Percocet 10-325 MG 1 tablet as needed Orally BID Active Ozempic (2 MG/DOSE) 8 MG/3ML as directed Subcutaneous Active NovoLOG FlexPen 100 UNIT/ML as directed Subcutaneous Active Mycophenolate Mofetil 250 MG TAKE 4 CAPSULES BY MOUTH TWICE DAILY; Duration: 90 Active Jardiance 10 MG 1 tablet Orally Once a day; Duration: 30 day(s) Active Zoloft - 50 mg 1 tablet Daily Active traZODone HCl 100 MG 1 tablet at bedtime Orally Once a day; Duration: 30 day(s) Active Social History Tobacco Use: Social History Observation [...] Problem Status W/U Status Risk Notes Problem Essential hypertension (77030384) Essential (primary) hypertension (I10) Active confirmed Problem Type II diabetes mellitus without complication (016979353) Type 2 diabetes mellitus without complications (E11.9) Active confirmed Problem Chronic kidney disease stage 2 (415097664) Chronic kidney disease, stage II (mild) (N18.2) Active confirmed Problem Long-term current use of insulin (021452738) 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 (Z79.4) Active confirmed Problem Albuminuria (956873635) Albuminuria (R80.9) Active confirmed Problem History of renal transplant (781147928) 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) Active confirmed Vital Signs Blood pressure diastolic 64 mm Hg 03/05/2025 Height 5ft 6in in 03/05/2025 Blood pressure systolic 136 mm Hg 03/05/2025 Weight 202.6 lbs 03/05/2025 BMI 32.7 kg/m2 03/05/2025 Encounters Encounter Location Date Provider Diagnosis [facility] [address] [place] [address] 08/21/2024 Dylan Kenny Chronic kidney disea se, stage II (mild) N18.2 ; Type 2 diabetes mellitus without complications E11.9 ; Living-donor kidney transplant recipient Z94.0 and Albuminuria R80.9 [facility] [address] [place] [address] 03/05/2025 Dylan Justicedre Chronic kidney disea se, stage II (mild) N18.2 ; Living-donor kidney transplant recipient Z94.0 ; Type 2 diabetes mellitus without complications E11.9 and Albuminuria R80.9 Assessments Encounter Date Diagnosis (ICD Code) Assessment Notes Treatment Notes Treatment Clinical Notes Section Notes 08/21/2024 Chronic kidney disease, stage II (mild) (ICD-10 - N18.2) 08/21/2024 Type 2 diabetes mellitus without complications (ICD-10 - E11.9) 03/05/2025 Chronic kidney disease, stage II (mild) (ICD-10 - N18.2) 03/05/2025 Living-donor kidney transplant recipient (ICD-10 - Z94.0) Cr is stable in the CKD 2 range BP is well controlled Encourage good DM control for prevention of CKD progression No evidence of infection or rejection Continue SGLT2i for prevention of CKD progression, no UTI concerns recently No edema on exam Continue MMF and tacrolimus for her IS regimen Encourage good daily oral hydration Avoid NSAID use 03/05/2025 Type 2 diabetes mellitus without complications (ICD-10 - E11.9) 08/21/2024 Living-donor kidney transplant recipient (ICD-10 - [...] exam No evidence of infection or rejection 08/21/2024 Albuminuria (ICD-10 - R80.9) 03/05/2025 Albuminuria (ICD-10 - R80.9) Plan Of Treatment Pending Test Test Name Order Date UA (URINALYSIS, COMPLETE) 12/20/2023 UA (URINALYSIS, COMPLETE) 08/21/2024 UA (URINALYSIS, COMPLETE) 03/05/2025 UA (URINALYSIS, COMPLETE) 12/14/2023 ALBUMIN, BLOOD 03/05/2025 ALBUMIN, BLOOD 12/14/2023 ALBUMIN, BLOOD 08/21/2024 ALBUMIN, BLOOD 12/20/2023 MAGNESIUM 12/20/2023 MAGNESIUM 08/21/2024 MAGNESIUM 12/14/2023 MAGNESIUM 03/05/2025 CBC NO DIFF 03/05/2025 CBC NO DIFF 12/14/2023 CBC NO DIFF 08/21/2024 CBC NO DIFF 12/20/2023 BMP (BASIC MET PANEL - W/GFR) 12/20/2023 BMP (BASIC MET PANEL - W/GFR) 12/14/2023 MICROALBUMIN with ALB/CREAT RATIO, URINE (MALB)) 12/14/2023 MICROALBUMIN with ALB/CREAT RATIO, URINE (MALB)) 12/20/2023 MICROALBUMIN with ALB/CREAT RATIO, URINE (MALB)) 08/21/2024 PHOSPHORUS 12/20/2023 PHOSPHORUS 08/21/2024 PHOSPHORUS 12/14/2023 PHOSPHORUS 03/05/2025 PTH INTACT (PARATHYROID HORMONE) 024 PTH INTACT (PARATHYROID HORMONE) 025 TACROLIMUS 12/20/2023 TACROLIMUS 08/21/2024 TACROLIMUS 12/14/2023 URIC ACID 03/05/2025 VITAMIN D, 25 LEVEL (TOTAL) 12/14/2023 VITAMIN D, 25 LEVEL (TOTAL) 08/21/2024 BMP w/GFR 08/21/2024 MAGNESIUM 01/29/2021 PROTEIN CREAT RATIO 01/29/2021 Tacrolimus 01/29/2021 CBC AND AUTO DIFF * 01/29/2021 RENAL PANEL 01/29/2021 BMP (BASIC MET PANEL) w/eGFR CKD-EPI MICROALBUMIN w CREAT RATIO 03/05/2025 Next Appt Details Provider Name:Dylan Kenny, 09/03/2025 12:00:00 PM, [address] [place], [address], Insurance Providers Payer Name Payer Address Payer Phone Subscriber Number Group Number Insured Name Patient Relationship to Insured Coverage Start Date Coverage End Date [employer] ADV PLAN [address] [place] [address] [id number] [facility] 0 Lisy Solis Self - patient is the insured 1 Medical (General) History Medical History History ICD Code History of hyperlipidemia History of diabetes mellitus History of gallstones History of hypertension Renal cell carcinoma Surgical History Surgery Date(Month/Year)
--- OUTSIDE RECORDS SUMMARY | 2025-03-08 08:36 | XMS_ITS | Encounter Summary ---
Author Organization [employer] Address [id number] [address] [place] [address] Care Team Providers Care Senior Recruiter Name Role Phone Carrie Reddy MURALI-FLEET MANAGER/DISPATCH Primary Care Provider + Reason for Visit * Reason Onset Date Comments Med Refill 09/06/2024 Encounter Details Date Type Department Care Team (Late st Contact Info) Description [facility] [address] [place] [address] Nanette Warren CMA Social History Tobacco Use [...] any clubs o r organizations such as islam groups, unions, fraternal or athletic groups, or [...] Answer Date Recorded Total Score 0 07/13/2024 [facility] - Occupational Stress Questionnaire [...] Medicine - Family Medicine [address] [place] [address] documented as of this encounter Visit Diagnoses Not on filedocumented in this encounter Additional Health Concerns Assessment Noted Time PHQ-9 Depression Total Score: 0 07/13/19 25 2:32 PM EST A Body Mass Index follow-up plan has been documented for the patient 08/10/2024 3:58 PM EST documented as of this encounter Care Teams Senior Recruiter Relationship Specialty Start Date End Date Carrie Reddy, [employer] SUPERVISOR-FLEET MANAGER/DISPATCH [address] [place] [address] PCP - General Family Medicine 02/16/24 documented as of this encounter
--- OUTSIDE RECORDS SUMMARY | 2025-03-08 08:36 | XMS_ITS | Encounter Summary ---
Author Organization [employer] Address [facility] [id number] [address] [place] [address] Care Team Providers Care Youth Nutritional Monitor Name Role Phone Carrie Reddy 3RD GRADE READING TEACHER-GAMBLING BROKER Primary Care Provider + Reason for Visit * Reason Comments Med Refill Encounter Details Date Type Department Care Team (Late st Contact Info) Description 09/03/2024 [facility] [address] [place] [address] Carrie [facility] [address] [address] Mixed hyperlipidemia Social History Tobacco Use Types [...] often do you attend chur ch or yarsanism services? More than 4 times per year 11/03/2022 Do you belong to any clubs o r organizations such as sabianism groups, unions, fraternal or athletic groups, or [...] Answer Date Recorded Total Score 0 07/13/2024 [facility] of Occupat ional Health - Occupational Stress [...] - Family Medicine [address] [place] [address] documented as of this encounter Visit Diagnoses Diagnosis Mixed hyperlipidemia documented in this encounter Additional Health Concerns Assessment Noted Time PHQ-9 Depression Total Score: 0 07/13/19 25 2:32 PM EST A Body Mass Index follow-up plan has been documented for the patient 08/10/2024 3:58 PM EST documented as of this encounter Care Teams Youth Nutritional Monitor Relationship Specialty Start Date End Date Carrie Reddy APRN-GAMBLING BROKER [address] [address] PCP - General Family Medicine 02/16/24 documented as of this encounter
--- OUTSIDE RECORDS SUMMARY | 2025-03-08 08:37 | XMS_ITS | Encounter Summary ---
Author Organization [employer] Address [id number] [address] [place] [address] Care Team Providers Care Editorial Assistant Name Role Phone Carrie Reddy Tomi ROBLESN-REAR LOAD TRUCK DRIVER Primary Care Provider + Reason for Visit * Reason Comments Med Refill Encounter Details Date Type Department Care Team (Late st Contact Info) Description 09/01/2022 Refill [facility] Internal Medicine - Family Medicine [address] [place] [address] Marycruz Guzman, MURALI-SINK MAKER [address] [place] [address] Radiculopathy due to lumbar intervertebral disc disorder [...] Medicine - Family Medicine [address] [place] [address] documented as of this encounter Visit Diagnoses Diagnosis Radiculopathy due to lumbar intervertebral disc disorder documented in this encounter Care Teams Editorial Assistant Relationship Specialty Start Date End Date Carrie Reddy APRN-REAR LOAD TRUCK DRIVER [address] [place] [address] PCP - General Family Medicine 02/16/24 documented as of this encounter
--- OUTSIDE RECORDS SUMMARY | 2025-03-08 08:37 | XMS_ITS | Encounter Summary ---
Author Organization [employer] Address [facility] [id number] [address] [place] [address] Care Team Providers Care Component Design Engineer Name Role Phone Carrie Reddy MURALI-COFFEE MACHINE TECHNICIAN Primary Care Provider + Encounter Details Date Type Department Care Team (Latest Contact Info) Description 02/22/2025 Travel Social History Tobacco Use Types Packs/Day Years Used Date Smoking Tobacco: Never Smokeless Tobacco: Never Alcohol Use Standard Drinks/Week Comments Never 0 (1 standard drink = 0.6 oz pur e alcohol) [facility] Utilities Answer Date Recorded In the past 12 months has [employer] electric, gas, oil, or water company threatened to shut off services in your [...] often do you attend chur ch or jew services? More than 4 times per year 12/12/2024 Do you belong to any clubs o r organizations such as mandaen groups, unions, fraternal or athletic groups, or [...] Answer Date Recorded Total Score 2 12/12/2024 [facility] ional Health - Occupational [...] Recorded Do you need help finding a [facility] career center and/or a training program? [...] Medicine - Family Medicine [address] [place] [address] documented as of this encounter Visit Diagnoses Not on filedocumented in this encounter Additional Health Concerns Assessment Noted Time PHQ-9 Depression Total Score: 2 12/13/19 25 9:53 AM EDT A Body Mass Index follow-up plan has been documented for the patient 08/10/2024 3:58 PM EST documented as of this encounter Care Teams Component Design Engineer Relationship Specialty Start Date End Date Carrie Reddy, DIRECTOR OF COMPLIANCE-COFFEE MACHINE TECHNICIAN [address] [place] [address] PCP - General Family Medicine 02/16/24 documented as of this encounter
--- OUTSIDE RECORDS SUMMARY | 2025-03-08 08:37 | XMS_ITS | Encounter Summary ---
Author Organization [employer] Address [facility] [id number] [address] [place] [address] Care Team Providers Care Air Conditioning Installer Supervisor Name Role Phone Carrie Reddy Tomi ROBLESN-FOURTH HAND Primary Care Provider + Encounter Details Date Type Department Care Team (Late st Contact Info) Description 05/20/2022 Orders Only [facility] Internal Medicine - Family Medicine [address] [place] [address] Dylan Galaviz, [address] [place] [address] Personal history of colonic polyps (Primary Dx); [...] Medicine - Family Medicine [address] [place] [address] documented as of this encounter Visit Diagnoses Diagnosis Personal history of colonic polyps- Primary History of colon polyps documented in this encounter Care Teams Air Conditioning Installer Supervisor Relationship Specialty Start Date End Date Carrie Reddy APRN-FOURTH HAND [address] [place] [address] PCP - General Family Medicine 02/16/24 documented as of this encounter
--- OUTSIDE RECORDS SUMMARY | 2025-03-08 08:37 | XMS_ITS | Encounter Summary ---
Author Organization [email or web address] s tem Address [id number] [address] [place] [address] Care Team Providers Care Chicken And Fish Cleaner Name Role Phone Carrie Reddy MUARLI-MALL PLANT CARETAKER Primary Care Provider + Encounter Details Date Type Department Care Team ([facility] Contact Info) Description 04/01/2022 [facility] [address] [place] [address] External, Scanning Provider Social History [...] Upcoming Encounters Date Type Department Care Team ([facility] Contact Info) Description 12/13/2025 10:00 AM EDT [facility] [address] [place] [address] documented as of this encounter Procedures Procedure Name Priority Date/Time Associated Diagnosis Comments DIABETES EYE EXAM Routine 03/26/2022 documented in this encounter Results * DIABETES EYE EXAM (03/26/2022) us Scanning Provider External HEALTH MAINTENANCE nal Result MANUALLY TRANSCRIBED RESULTS documented in this encounter Visit Diagnoses Not on filedocumented in this encounter Care Teams Chicken And Fish Cleaner Relationship Specialty Start Date End Date Carrie Reddy, PHP SOFTWARE ENGINEER-MALL PLANT CARETAKER [address] [place] [address] PCP - General Family Medicine 02/16/24 documented as of this encounter
--- OUTSIDE RECORDS SUMMARY | 2025-03-08 08:37 | XMS_ITS | Encounter Summary ---
Author Organization [employer] tem Address [facility]-[id number] [address] [place] [address] Care Team Providers Care Paper Cleaner Name Role Phone Carrie Reddy Tomi CARRION-AUTO FORMER MACHINE OPERATOR Primary Care Provider + Encounter Details Date Type Department Care Team (Late st Contact Info) Description 04/21/2024 Telephone [facility] - Family Medicine [address] [place] [phone] Lala Haywood CMA Social History Tobacco Use [...] often do you attend chur ch or quaker services? More than 4 times per year 11/03/2022 Do you belong to any clubs o r organizations such as temple groups, unions, fraternal or athletic groups, or [...] Answer Date Recorded Total Score 0 04/13/2024 [facility] - Occupational [...] Recorded Do you need help finding a [facility] career [facility] and/or a training [...] - Family Medicine [address] [place] [address] documented as of this encounter Visit Diagnoses Not on filedocumented in this encounter Additional Health Concerns Assessment Noted Time PHQ-9 Depression Total Score: 0 04/13/20 10:41 AM EDT documented as of this encounter Care Teams Paper Cleaner Relationship Specialty Start Date End Date Carrie Reddy APRN-CNP [address] [place] [address] PCP - General Family Medicine 02/16/24 documented as of this encounter
--- OUTSIDE RECORDS SUMMARY | 2025-03-08 08:37 | XMS_ITS | Encounter Summary ---
Author Organization [employer] tem Address [facility]-[id number] [address] [place] [address] Care Team Providers Care Merchant Mariner Name Role Phone Carrie Reddy MURALI-HEMODIALYSIS CHARGE NURSE Primary Care Provider + Encounter Details Date Type Department Care Team (Late st Contact Info) Description 07/06/2022 [facility]phone [facility] [address] [place] [phone] Nanette aWrren CMA Social History Tobacco Use Types Packs/Day [...] Medicine - Family Medicine [address] [place] [address] documented as of this encounter Visit Diagnoses Not on filedocumented in this encounter Care Teams Merchant Mariner Relationship Specialty Start Date End Date Carrie Reddy APRN-HEMODIALYSIS CHARGE NURSE [address] [place] [address] PCP - General Family Medicine 02/16/24 documented as of this encounter
--- OUTSIDE RECORDS SUMMARY | 2025-03-08 08:37 | XMS_ITS | Clinical Summary ---
Author Organization [employer] tem Address [id number] [address] [place] [address] Care Team Providers Care Digital Engineer Name Role Phone Carrie Reddy Tomi CARRION-CLIENT RESOURCE SPECIALIST Primary Care Provider + Allergies No known active allergies Medications tacrolimus (PROGRAF) 1 mg capsule Take 2 capsules (2 mg total) by mouth in the morning and 2 capsules (2 mg total) at noon and 2 capsules (2 mg total) in the evening. Active flash glucose scanning reader (FREESTYLE LISY 14 DAY READER) [facility] Active flash glucose sensor (FREESTYLE LISY 14 DAY SENSOR) kit Active alcohol swabs pads, medicated Acti ve OZEMPIC 2 mg/dose (8 mg/3 mL) pen injector 02/20/20 22 Active pen needle, diabetic (BD ULTRA-FINE MINI PEN NEEDLE) 31 gauge x 3/16 needle Active aspirin 81 mg Active empagliflozin (JARDIANCE) 10 mg tablet tablet Active mycophenolate (CELLCEPT) 250 mg capsule Active gabapentin (NEURONTIN) 600 mg tabletIndications: Radiculopathy due to lumbar intervertebral disc disorder Take 1 tablet (600 mg total) by mouth in the morning and 1 tablet (600 mg total) at noon and 1 tablet (600 mg total) in the evening and 1 tablet (600 mg total) before bedtime. 360 tablet 04/06/20 23 Active Saccharomyces boulardii (FLORASTOR) 250 mg capsuleIndications :Diabetic polyneuropathy associated with type 2 diabetes mellitus (CMS-HCC) Take 1 capsule (250 mg total) by mouth Daily at 0300. 90 capsule 3 04/17/20 24 Active insulin degludec (TRESIBA FLEXTOUCH U-100) 100 unit/mL (3 mL) insulin pen Inject 60 Units under the skin nightly. Active cyclobenzaprine (FLEXERIL) 10 mg tablet Take 1 tablet (10 mg total) by mouth as needed in the morning and 1 tablet (10 mg total) as needed at noon and 1 tablet (10 mg total) as needed in the evening. 07/06/19 25 Active oxyCODONE-acetamin ophen (PERCOCET) 7.5-325 mg per tablet Take 1 tablet by mouth as needed in the morning and 1 tablet as needed at noon and 1 tablet as needed in the evening for pain. 07/16/19 25 Active traZODone (DESYREL) 150 mg tablet Take 1 tablet (150 mg total) by mouth nightly. 90 tablet 1 09/07/19 25 Active rosuvastatin (CRESTOR) 20 mg tablet Take 1 tablet (20 mg total) by mouth in the morning. 90 tablet 1 11/10/19 25 Active sertraline (ZOLOFT) 100 mg tablet Take 1 tablet (100 mg total) by mouth in the morning. 90 tablet 1 12/14/19 25 Active diclofenac sodium-menthoL 1.5-10 % combo pack Apply 1 Application topically in the morning and 1 Application at noon and 1 Application in the evening and 1 Application before bedtime. 239 mL 1 01/09/20 25 Active ferrous sulfate 325 (65 FE) MG tabletIndications: Anemia, unspecified Take 1 tablet (325 mg total) by mouth in the morning and 1 tablet (325 mg total) in the evening. Take with meals. 180 tablet 3 01/09/20 25 Active Active Problems Problem Noted Date Diagnosed Date [...] Encounters Date Type Department Care Team Description 02/22/2025 [facility] [address] [place] [address] Carrie Reddy, COMMUNITY LIAISON OFFICER-CLIENT RESOURCE SPECIALIST CBC without diff 02/22/2025 Travel 01/05/2025 [facility] [address] [place] [address] Tracie Johnston, PUBLIC INFORMATION COORDINATOR Anemia, unspecified 12/18/2024 Orders Only [facility] [address] [place] [address] Carrie Reddy, COMMUNITY LIAISON OFFICER-CLIENT RESOURCE SPECIALIST 12/13/2024 [facility] [address] [place] [address] Carrie Reddy, COMMUNITY LIAISON OFFICER-CLIENT RESOURCE SPECIALIST 12/12/2024 9:40 AM EDT [facility] [address] [place] [place] [address] Carrie Reddy, COMMUNITY LIAISON OFFICER-CLIENT RESOURCE SPECIALIST Medicare annual wellness visit, subsequent (Primary Dx); Depression screening; Encounter for screening mammogram for malignant neoplasm of breast 12/12/2024 [facility] [address] [place] [address] Carrie Reddy, COMMUNITY LIAISON OFFICER-CLIENT RESOURCE SPECIALIST 12/12/2024 Travel 12/06/2024 Travel from Last 3 Months Immunizations Immunization Administration [...] drink = 0.6 oz pur e alcohol) [facility] Utilities Answer Date Recorded In the past 12 months has e [employer], gas, oil, or water [employer] threatened to shut off services in your [...] week 12/12/2024 How often do you attend healthsource saginaw or advent services? More than 4 times per year 12/12/2024 Do you belong to any clubs o r organizations such as restoration groups, unions, fraternal or athletic groups, or [...] Answer Date Recorded Total Score 2 12/12/2024 [facility] of Occupat ional Health - Occupational Stress [...] Recorded Do you need help finding a [place] [employer] [facility] career center and/or a training program? No [...] Sign Reading Time Taken Comments Blood Pressure 130/80 12/12/2024 9:48 AM EDT Pulse 69 08/10/2024 1:24 PM EST Temperature 36.2 C (97.2 F) 07/13/2024 2:32 PM EST Respiratory Rate 18 04/13/2024 10:42 AM EDT Oxygen Saturation 95% 07/13/2024 2:32 PM EST Inhaled Oxygen Concentration - - Weight 90.5 kg (199 lb 9.6 oz) 12/12/2024 9:48 A M EDT Height 162.6 cm (5' 4 ) 12/12/2024 9:48 AM EDT Body Mass Index 34.26 12/12/2024 9:48 AM EDT Plan of Treatment Upcoming Encounters Date Type Department Care Team (Late st Contact Info) Description 12/13/2025 10:00 AM EDT Office Visit [facility] [address] [place] [address] Health Maintenance Due Date Last Done Comments Diabetic Foot Exam 1972 Zoster (Shingles) Vaccine (1 of 2) 1973 DTaP,Tdap and Td Vaccines (2 - Tdap) 07/16/2014 07/16/2004 Diabetic Ophthalmology Exam 04/09/2023 04/09/2022, 1 Mammogram 04/21/2024 04/21/2023, 02/21/2018 Influenza Vaccine 02/12/2025 04/13/2024, , 04/24/2020, Additional history exists Adult BMI Follow Up Plan 08/10/2025 08/10/2024 Statin Use: Diabetic 11/09/2025 11/09/2024 Adult BMI Screening 12/12/2025 12/12/2024 Depression Screening 12/12/2025 12/12/2024 Fall Risk Screening 12/12/2025 12/12/2024 Medicare Annual Wellness Visit 12/12/2025 12/12/2024 , 11/03/2022 Tobacco Screening 12/12/2025 12/12/2024 COVID-19 Vaccine Discontinued 10/07/2020, , 08/09/2020 Medical Devices Not on file Procedures Procedure Name Priority Date/Time Associated Diagnosis Comments BASIC METABOLIC PANEL Routine 02/22/2025 9:34 AM EDT Kidney transplant status CBC (NO DIFF) Routine 02/22/2025 9:34 AM EDT Kidney transplant status MAGNESIUM Routine 02/22/2025 9:34 AM EDT Kidney transplant status ALBUMIN Routine 02/22/2025 9:34 AM EDT Kidney transplant status VITAMIN D 25 HYDROXY Routine 02/22/2025 9:34 AM EDT Kidney transplant status PARATHYROID HORMOME, INTACT Routine 02/22/2025 9:34 AM EDT Kidney transplant status PHOSPHORUS Routine 02/22/2025 9:34 AM EDT Kidney transplant status TACROLIMUS, B Routine 02/22/2025 9:34 AM EDT Kidney transplant status URINALYSIS Routine 02/22/2025 9:33 AM EDT Kidney transplant status MICROALBUMIN / CREATININE URINE RATIO Routine 02/22/2025 9:33 AM EDT Kidney transplant status MAMM SCREENING BILATERAL W CAD Routine 04/21/2023 10:34 AM EST Encounter for screening mammogram for malignant neoplasm of breast HM DIABETES EYE EXAM Routine 04/09/2022 from Last 3 Months or Most Recently Relevant to Health Maintenance Results * (ABNORMAL) Tacrolimus, B (02/22/2025 9:34 AM EDT) TACROLIMUS, B 4.1(L) 5.0-15.0 (Trough) ng/mL 02/23/2025 2:23 PM EDT [facility] Comment: ADDITIONAL INFORMATION Target steady-state trough concentrations vary depending on the type of transplant, concomitant immunosuppression, clinical/institutional protocols, and time post-transplant. Results should be interpreted in conjunction with this clinical information and any physical signs/symptoms of rejection/toxicity. Testing performed by Liquid Chromatography-Tandem Mass Spectrometry (LC-MS/MS). This test was developed and its performance characteristics determined by [facility] in a manner consistent with CLIA requirements. This test has not been cleared or approved by the U.S. Food and Drug Administration. Test Performed by: [facility] [address] [place] [address] Service Engine Repairer: Buddy Ballard Ph.D.; CLIA# [id number] Blood Venous blood / Unknown Venipuncture / Unknown 02/22/2025 9:34 AM EDT 02/22/2025 9:34 AM EDT Dylan Kenny MD LAB BLOOD ORDERABLES Final Resu lt Performing Organization Address City/[facility]/ZIP Co de Phone Number [facility] [address] [place] [phone], * Parathyroid Hormone, intact (02/22/2025 9:34 AM EDT) PTH INTACT 51 12 - 88 pg/mL 02/22/2025 3:18 PM EDT [facility] Blood Venous blood / Unknown Venipuncture / Unknown 02/22/2025 9:34 AM EDT 02/22/2025 9:34 AM EDT Dylan Kenny MD LAB BLOOD ORDERABLES Final Resu lt [facility] [address] [place] [address], * Vitamin D 25 hydroxy (02/22/2025 9:34 AM EDT) VITAMIN D 25 HYD TOT 31.7 30.0 - 100.0 ng/mL 02/22/2025 3:26 PM EDT [facility] Blood Venous blood / Unknown Venipuncture / Unknown 02/22/2025 9:34 AM EDT 02/22/2025 9:34 AM EDT Narrative [facility] - 02/22/2025 3:26 PM EDT Vitamin D status 25 [place] Vitamin D Deficiency <20 ng/mL Insufficiency 20-29 ng/mL Sufficiency 30-100 ng/mL Toxicity >100 ng/mL NOTE: A pediatric reference range has not been established by the lithography contact worker of this kit. The [place] [employer] recommends a Vitamin D level of = or >20ng/mL in infants and children. us Dylan Kenny MD LAB BLOOD ORDERABLES Final Resu lt [facility] [address] [place] [address], * (ABNORMAL) CBC without diff (02/22/2025 9:34 AM EDT) WBC 5.5 4 - 11 x10E9/L 02/22/2025 1:49 PM EDT [facility] RBC Count 4.90 3.8 - 5.2 X10E12/L 02/22/2025 1:49 PM EDT [facility] Hemoglobin 14.3 11.7 - 15.5 g/dL 02/22/2025 1:49 PM EDT [facility] Hematocrit 43.7 35 - 47 % 02/22/2025 1:49 PM EDT [facility] MCV 89 80 - 100 fL 02/22/2025 1:49 PM EDT [facility] MCH 29.1 27 - 34 pg 02/22/2025 1:49 PM EDT [facility] MCHC 32.6 32 - 36 g/dL 02/22/2025 1:49 PM EDT [facility] RDW 14.1 11.5 - 15 % 02/22/2025 1:49 PM EDT [facility] Platelet Count 122(L) 150 - 450 X10E9/L 02/22/2025 1:49 PM EDT [facility] MPV 11.6 7 - 12 fL 02/22/2025 1:49 PM EDT [facility] Blood Venous blood / Unknown Venipuncture / Unknown 02/22/2025 9:34 AM EDT 02/22/2025 9:34 AM EDT us Dylan Kenny MD LAB BLOOD ORDERABLES Final Resu lt [facility] [address] [place] [address], * Phosphorus (02/22/2025 9:34 AM EDT) PHOSPHORUS 3.7 2.4 - 4.9 mg/dL 02/22/2025 3:41 PM EDT [facility] Blood Venous blood / Unknown Venipuncture / Unknown 02/22/2025 9:34 AM EDT 02/22/2025 9:34 AM EDT us Dylan Kenny MD LAB BLOOD ORDERABLES Final Resu lt [facility] [address] [place] [address], [place] [phone] * Magnesium (02/22/2025 9:34 AM EDT) MAGNESIUM 2.0 1.8 - 2.6 mg/dL 02/22/2025 3:41 PM EDT [facility] Blood Venous blood / Unknown Venipuncture / Unknown 02/22/2025 9:34 AM EDT 02/22/2025 9:34 AM EDT us Dylan Kenny MD LAB BLOOD ORDERABLES Final Resu lt [facility] [address] [place] [address], * Albumin (02/22/2025 9:34 AM EDT) ALBUMIN 4.2 3.2 - 5.3 g/dL 02/22/2025 3:41 PM EDT [facility] Blood Venous blood / Unknown Venipuncture / Unknown 02/22/2025 9:34 AM EDT 02/22/2025 9:34 AM EDT Dylan Kenny MD LAB BLOOD ORDERABLES Final Resu lt Performing Organization Address City/[facility]/ZIP Co de Phone Number [facility] [address] [place] [address], * (ABNORMAL) Basic Metabolic Panel (02/22/2025 9:34 AM EDT) Pathologist [facility] SODIUM 138 134 - 146 mmol/L 02/22/2025 3:41 PM EDT [facility] POTASSIUM 4.2 3.5 - 5.0 mmol/L 02/22/2025 3:41 PM EDT [facility] CHLORIDE 100 98 - 109 mmol/L 02/22/2025 3:41 PM EDT [facility] CARBON DIOXIDE 23 22 - 32 mmol/L 02/22/2025 3:41 PM EDT [facility] ANION GAP 15 5 - 15 mmol/L 02/22/2025 3:41 PM EDT [facility] BLOOD UREA NITROGEN 18 5 - 27 mg/dL 02/22/2025 3:41 PM EDT [facility] CREATININE 0.71 0.40 - 1.00 mg/dL 02/22/2025 3:41 PM EDT [facility] Comment:METHOD TRACEABLE TO IDMS STANDARD GLUCOSE 255(H) 65 - 99 mg/dL 02/22/2025 3:41 PM EDT [facility] CALCIUM 9.1 8.5 - 10.5 mg/dL 02/22/2025 3:41 PM EDT [facility] EGFR Non-Race Dependent >90 >=60 ml/min/1.7 3sq.m 02/22/2025 3:41 PM EDT [facility] Comment: Reported eGFR is based on the CKD-EPI 2020 equation that does not use a race coefficient. Blood Venous blood / Unknown Venipuncture / Unknown 02/22/2025 9:34 AM EDT 02/22/2025 9:34 AM EDT Dylan Kenny MD LAB BLOOD ORDERABLES Final Resu lt [facility] [address] [place] [address], [place] [phone] * (ABNORMAL) Microalbumin - Albumin: Creatinine Urine Ratio (02/22/2025 9:33 AM EDT) URINE CREATININE,RDM 45.93 mg/dL 02/22/2025 4:08 PM EDT [facility] MALB/CREAT RATIO 132.8(H) 0.0 - 30.0 mg/g 02/22/2025 4:08 PM EDT [facility] MICROALBUMIN, URINE 6.1(H) 0.0 - 1.9 mg/dL 02/22/2025 4:08 PM EDT [facility] Urine Urine specimen collection, clean catch / Unknown Collection / Unknown 02/22/2025 9:33 AM EDT 02/22/2025 9:33 AM EDT us Dylan Kenny MD URINE ORDERABLES Final Result Performing Organization Address [facility]/ZIP Co de Phone Number [facility] [address] [place] [address] [place] [address], [place] [phone] * (ABNORMAL) Urinalysis (02/22/2025 9:33 AM EDT) COLOR Yellow Yellow 02/22/2025 2:47 PM EDT [facility] TURBIDITY Clear Clear 02/22/2025 2:47 PM EDT [facility] SPECIFIC GRAVITY 1.035 1.003 - 1.035 02/22/2025 2:47 PM EDT [facility] NITRITE Negative Negative 02/22/2025 2:47 PM EDT [facility] PH,URINE 5.0 5.0 - 8.5 02/22/2025 2:47 PM EDT [facility] LEUKOCYTE ESTERASE Negative Negative 02/22/2025 2:47 PM EDT [facility] Comment:High Concentrations of Glucose May Decrease the Reactivity of the Dipstick Leukocyte Test Pad. PROTEIN Negative Negative 02/22/2025 2:47 PM EDT [facility] KETONES (URINE) Negative Negative 2:47 PM EDT [facility] UROBILINOGEN <1.1 eu/dL <1.1 eu/dL 02/22/2025 2:47 PM EDT [facility] BILIRUBIN (URINE) Negative Negative 025 2:47 PM EDT [facility] BLOOD/HGB Negative Negative 02/22/2025 2:47 PM EDT [facility] GLUCOSE (URINE) >1000 mg/dL(A) Negative 02/22/2025 2:47 PM EDT [facility] Urine Urine / Unknown Collection / Unknown 02/22/2025 9:33 AM EDT 02/22/2025 9:33 AM EDT Narrative [facility] - 02/22/2025 2:47 PM EDT Urine received without preservative. Delays in transport may affect results. Interpret with caution. A clinical correlation is recommended. us Dylan Kenny MD URINE ORDERABLES Final Result [facility] [address] [place] [address], [place] [phone] * Mammography screening bilateral with CAD (04/21/2023 [...] a MAMM 1 YR us Marycruz Guzman COMMUNITY LIAISON OFFICER-LINSEED OIL PRESS TENDER IMG MAMMOGRAPHY ORDERABLES Final Result * DIABETES EYE EXAM (04/09/2022) us Not In System Ref Prov HEALTH MAINTENANCE Final Result MANUALLY TRANSCRIBED RESULTS from Last 3 Months or Most Recently Relevant to Health Maintenance Insurance [employer] MEDICARE Care Teams Digital Engineer Relationship Specialty Start Date End Date Carrie Reddy, COMMUNITY LIAISON OFFICER-CLIENT RESOURCE SPECIALIST [address] [place] [address] PCP - General Family Medicine 02/16/24
--- OUTSIDE RECORDS SUMMARY | 2025-03-08 08:37 | XMS_ITS | Encounter Summary ---
Author Organization [employer] tem Address [id number] [address] [place] [address] Care Team Providers Care Research Microbiologist Name Role Phone Carrie Reddy MURALI-CONCRETE INSPECTOR Primary Care Provider + Encounter Details Date Type Department Care Team (Late st Contact Info) Description 05/19/2022 Telephone [facility] - Family Medicine [address] [place] [phone] Nanette Warren CMA Social History Tobacco Use [...] know if you could try calling in [place] for her? documented in this encounter Plan of Treatment Upcoming Encounters Date Type Department Care Team (Late st Contact Info) Description 12/13/2025 10:00 AM EDT Office Visit [facility] - [facility] Medicine [address] [place] [address] documented as of this encounter Visit Diagnoses Not on filedocumented in this encounter Care Teams Research Microbiologist Relationship Specialty Start Date End Date Carrie Reddy APRN-CONCRETE INSPECTOR [address] [place] [address] PCP - General Family Medicine 02/16/24 documented as of this encounter
--- OUTSIDE RECORDS SUMMARY | 2025-03-08 08:37 | XMS_ITS | Encounter Summary ---
Author Organization Moat [employer] tem Address [id number] [address] [place] [address] Care Team Providers Care Lidding Machine Operator Name Role Phone Carrie Reddy Tomi WET PROCESS MILLER-MECHANICAL SOUND TECHNICIAN Primary Care Provider + Reason for Visit * Reason Comments Med Change Request Encounter Details Date Type Department Care Team (Late st Contact Info) Description 05/19/2022 [facility] [address] [place] [address] Marycruz Gumzan, MURALI-SPONGE CLIPPER [address] [place] [address] Osteoarthritis of both hands, unspecified osteoarthritis type [...] Medicine - Family Medicine [address] [place] [address] documented as of this encounter Visit Diagnoses Diagnosis Osteoarthritis of both hands, unspecified osteoarthritis type documented in this encounter Care Teams Lidding Machine Operator Relationship Specialty Start Date End Date Carrie Reddy, WET PROCESS MILLER-MECHANICAL SOUND TECHNICIAN [address] [place] [address] PCP - General Family Medicine 02/16/24 documented as of this encounter
--- OUTSIDE RECORDS SUMMARY | 2025-03-08 08:37 | XMS_ITS | Encounter Summary ---
Author Organization [employer] Address [id number] [address] [place] [address] Care Team Providers Care Manager Molecular Name Role Phone Carrie Reddy Tomi CARRION-STEWARD/STEWARDESS SECOND CLASS Primary Care Provider + Encounter Details Date Type Department Care Team (Late st Contact Info) Description 09/15/2024 Orders Only [facility] Internal Medicine - Family Medicine [address] [place] [address] Nanette Warren CMA Spinal stenosis of lumbar [...] often do you attend chur ch or druze services? More than 4 times per year 11/03/2022 Do you belong to any clubs o r organizations such as congregation groups, unions, fraternal or athletic groups, or [...] Date Recorded Total Score 0 07/13/2024 [facility] of Occupat ional Health - [...] Medicine - Family Medicine [address] [place] [address] documented as of this encounter Procedures Procedure [...] Spine Covera N/A Magnetic Resonance Heaven Ramos APRN-STEWARD/STEWARDESS SECOND CLASS IM MRI ORDERABLES Tricia l Result documented [...] documented as of this encounter Care Teams Manager Molecular Relationship Specialty Start Date End Date Carrie Reddy APRN-HIMA [address] [place] [address] PCP - General Family Medicine 02/16/24 documented as of this encounter
--- OUTSIDE RECORDS SUMMARY | 2025-03-08 08:37 | XMS_ITS | Encounter Summary ---
Author Organization [employer] Address [id number] [address] [place] [address] Care Team Providers Care Die Casting Machine Operator Name Role Phone Carrie Reddy MURALI-ROUTE INSPECTOR Primary Care Provider + Encounter Details Date Type Department Care Team ([facility] Contact Info) Description 04/09/2022 [facility] [address] [place] [id number] Ref Prov, [place] [address] Social History Tobacco Use Types Packs/Day Years [...] Upcoming Encounters Date Type Department Care Team ([facility] Contact Info) Description 12/13/2025 10:00 AM EDT Office Visit [facility] Internal Medicine - Family Medicine [address] [place] [address] documented as of this encounter Procedures Procedure Name Priority Date/Time Associated Diagnosis Comments DIABETES EYE EXAM Routine 04/09/2022 documented in this encounter Results * DIABETES EYE EXAM (04/09/2022) us Not In System Ref Prov HEALTH MAINTENANCE Final Result MANUALLY TRANSCRIBED RESULTS documented in this encounter Visit Diagnoses Not on filedocumented in this encounter Care Teams Die Casting Machine Operator Relationship Specialty Start Date End Date Carrie Reddy, MURALI-ROUTE INSPECTOR [address] [place] [address] PCP - General Family Medicine 02/16/24 documented as of this encounter
--- OUTSIDE RECORDS SUMMARY | 2025-03-08 08:37 | XMS_ITS | Encounter Summary ---
Author Organization [employer] Address [id number] [address] [place] [address] Care Team Providers Care Cash Reconciliation Specialist Name Role Phone Carrie Reddy INDUSTRIAL MACHINE ASSEMBLER-SOCIAL WORK SPECIALIST Primary Care Provider + Reason for Visit * Reason Comments Med Refill Encounter Details Date Type Department Care Team (Late st Contact Info) Description 06/15/2024 Refill [facility] Internal Medicine - Family Medicine [address] [place] [address] [facility] [address] [facility] [place] [address] Mixed hyperlipidemia Social History Tobacco Use Types [...] Answer Date Recorded Total Score 0 04/13/2024 [facility] of Occupat ional Health - Occupational Stress [...] Recorded Do you need help finding a [facility] career center and/or a training program? No [...] Medicine - Family Medicine [address] [place] [address] documented as of this encounter Visit Diagnoses Diagnosis Mixed hyperlipidemia documented in this encounter Additional Health Concerns Assessment Noted Time PHQ-9 Depression Total Score: 0 04/13/20 24 10:41 AM EDT documented as of this encounter Care Teams Cash Reconciliation Specialist Relationship Specialty Start Date End Date Carrie Reddy, INDUSTRIAL MACHINE ASSEMBLER-SOCIAL WORK SPECIALIST [address] [place] [address] PCP - General Family Medicine 02/16/24 documented as of this encounter
--- OUTSIDE RECORDS SUMMARY | 2025-03-08 08:37 | XMS_ITS | Encounter Summary ---
Author Organization [employer] Address [facility][id number] [address] [place] [address] Care Team Providers Care Citizen Participation Specialist Name Role Phone Carrie Reddy TUBE DRAW HELPER-COVERER Primary Care Provider + Reason for Visit * Reason Comments Med Refill Encounter Details Date Type Department Care Team (Late st Contact Info) Description 11/04[facility] [address] [place] [address] [facility] [address] [facility] [place] [address] Mixed hyperlipidemia Social History Tobacco Use Types [...] often do you attend chur ch or mu-ism services? More than 4 times per year 11/03/2022 Do you belong to any clubs o r organizations such as mosque groups, unions, fraternal or athletic groups, or [...] Answer Date Recorded Total Score 0 07/13/2024 [facility] of Occupat ional Health - Occupational Stress [...] Recorded Do you need help finding a [facility] career center and/or a training program? [...] - Family Medicine [address] [place] [address] documented as of this encounter Visit Diagnoses Diagnosis Mixed hyperlipidemia documented in this encounter Additional Health Concerns Assessment Noted Time PHQ-9 Depression Total Score: 0 07/13/19 25 2:32 PM EST A Body Mass Index follow-up plan has been documented for the patient 08/10/2024 3:58 PM EST documented as of this encounter Care Teams Citizen Participation Specialist Relationship Specialty Start Date End Date Carrie Reddy APRN-COVERER [address] [facility] [address] [place] [address] PCP - General Family Medicine 02/16/24 documented as of this encounter
--- OUTSIDE RECORDS SUMMARY | 2025-03-08 08:37 | XMS_ITS | Encounter Summary ---
Author Organization [employer] Address [facility] [id number] [address] [place] [address] Care Team Providers Care Cisco Network Architect Name Role Phone Carrie Reddy CERNER ANALYST-TRACK SUPERINTENDENT Primary Care Provider + Reason for Visit * Reason Comments Med Refill Encounter Details Date Type Department Care Team (Late st Contact Info) Description 07/16/2024 Refill [facility] Internal Medicine - Family Medicine [address] [place] [address] [facility] [address] [facility] [place] [address] Mixed hyperlipidemia Social History Tobacco Use Types [...] often do you attend chur ch or pentecostalism services? More than 4 times per year 11/03/2022 Do you belong to any clubs o r organizations such as hoahaoism groups, unions, fraternal or athletic groups, or [...] Answer Date Recorded Total Score 0 07/13/2024 [facility] of Occupat ional Health - Occupational Stress [...] Recorded Do you need help finding a [facility] career center and/or a training program? [...] Medicine - Family Medicine [address] [place] [address] documented as of this encounter Visit Diagnoses Diagnosis Mixed hyperlipidemia documented in this encounter Additional Health Concerns Assessment Noted Time PHQ-9 Depression Total Score: 0 07/13/19 25 2:32 PM EST documented as of this encounter Care Teams Cisco Network Architect Relationship Specialty Start Date End Date Carrie Reddy APRN-TRACK SUPERINTENDENT [address] [facility] [place] [address] PCP - General Family Medicine 02/16/24 documented as of this encounter
--- OUTSIDE RECORDS SUMMARY | 2025-03-08 08:38 | XMS_ITS | CCD ---
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 Name Role Phone Airam Thomas Unavailable Sara Adhikari Unavailable DR YOLANDA GUZMAN Primary Care Unavailable LAKSHMIPATHY ., NARENDRANATH Admitting Kaylee vailable LAKSHMIPATHY ., NARENDRANATH Attending Kaylee vailable LAKSHMIPATHY ., NARENDRANATH Consulting Kaylee vailable LAKSHMIPATHY ., NARENDRANATH Admitting Kaylee vailable LAKSHMIPATHY ., NARENDRANATH Attending Kaylee vailable DR YOLANDA GUZMAN Primary Care Unavailable LAKSHMIPATHY ., NARENDRANATH Consulting Kaylee vailable LAKSHMIPATHY ., NARENDRANATH Admitting Kaylee vailable LAKSHMIPATHY ., KMENDCHRISTOPHEATH Attending Kaylee vailable DR YOLANDA GUZMAN Primary Care Unavailable LAKSHMIPATHY ., NARENDRANATH Consulting Kaylee vailable SHADI KNOX Consulting Unavailable LAKSHMIPATHY ., NARENDRANATH Admitting Kaylee vailable LAKSHMIPATHY ., KMENDRANATH Attending Kaylee vailable DR YOLANDA GUZMAN Primary Care Unavailable LAKSHMIPATHY ., NARENDRANATH Admitting Kaylee vailable LAKSHMIPATHY ., KMENDRANATH Attending Kaylee vailable DR YOLANDA GUZMAN Primary Care Unavailable MANUEL .MEL Consulting Unavailable ALLIE ., DR OSIRIS Rajput Admitting Unavailable KELLEY ., DR OSIRIS Rajput Attending Unavailable DR YOLANDA GUZMAN Primary Care Unavailable LUIS .DOMI Consulting Unavailable KELLEY ., DR OSIRIS Rajput Admitting Unavailable KELLEY ., DR OSIRIS Rajput Attending Unavailable DR YOLANDA GUZMAN Primary Care Unavailable KELLEY ., DR OSIRIS Rajput Consulting Unavailable WHITMOREKATHRYN WALKERLE Consulting Unavailable KELLEY ., DR OSIRIS Rajput Admitting Unavailable KELLEY ., DR OSIRIS Rajput Attending Unavailable GÓMEZ, DR YOLANDA Moreno Primary Care Unavailable SMITH ., DOMI Consulting Unavailable ALLIE ., DR OSIRIS Rajput Admitting Unavailable KELLEY ., DR OSIRIS Rajput Attending Unavailable KUNS, DR YOLANDA Moreno Primary Care Unavailable SMITH ., DOMI Consulting Unavailable NON STAFF Primary Care Provider Unavailjus e MURALI Thomas Attending Provider Airam Thomas Attending Unavailable Eric Thomasa K Admitting Unavailable NON STAFF Primary Care Unavailable Berhane ANDERSON, Tra Rowe Attending Unavailable ANITA, ALEXANDRIA L Referring Unavailable ANITA, ALEXANDRIA L Primary Care Unavailable DAWNA, BENTLEY Referring Unavailable DAWNA, BENTLEY Referring Unavailable DAWNA, BENTLEY Referring Unavailable Anita ENTERPRISE INTEGRATION ARCHITECT-YARDMASTER, Alexandria L Primary Care Provider Anita ENTERPRISE INTEGRATION ARCHITECT-HIMA, Alexandria L Primary Care Provider Altagracia Arriola Primary Care Provider Luis YARDMASTERDomi C Unavailable Apple RABAGO Qiana Unavailable Elen Archer CNP Unavailable [phone] ANITA, ALEXANDRIA L Attending Unavailable ANITA, ALEXANDRIA L Referring Unavailable ANITA, ALEXANDRIA L Primary Care Unavailable KUNS, MALIK Referring Unavailable KUNS, MALIK Primary Care Unavailable KUNS, YOLANDA R Referring Unavailable KUNS, YOLANDA R Primary Care Unavailable ANITA, ALEXANDRIA L Attending Unavailable ANITA, ALEXANDRIA L Referring Unavailable ANITA, ALEXANDRIA L Primary Care Unavailable ELEN ARCHER Attending Unavailable ANITA, ALEXANDRIA L Referring Unavailable ANITA, ALEXANDRIA L Primary Care Unavailable ANITA, ALEXANDRIA L Referring Unavailable ANITA, ALEXANDRIA L Primary Care Unavailable ANITA, ALEXANDRIA L Referring Unavailable ANITA, ALEXANDRIA L Primary Care Unavailable ANITA, ALEXANDRIA L Primary Care Unavailable ELEN ARCHER Referring Unavailable ANITA, ALEXANDRIA L Primary Care Unavailable RANKER MACARIO O Referring Unavailable ANITA, ALEXANDRIA L Primary Care Unavailable RANKER, MACARIO O Referring Unavailable Allergies Allergy Classification Reported Allergen(s) Allergy Type Date of Onset Reaction(s) Facility (1 source) ALLERGIES NOT ON FILE; Translations: [ALLERGIES NOT ON FILE] Propensity to adverse reactions (disorder) [facility] Repository Medications Current Medications Medication Drug Class(es) [...] / oxyCODONE hydrochloride 7.5 mg oral tablet (20 sources) Opioid Agonist Start: 07-16-2024 oxyCODONE-acet aminophen (PERCOCET) 7.5-325 mg per tablet Take 1 tablet by mouth as needed in the morning and 1 tablet as needed at noon and 1 tablet as needed in the evening for pain. 07/16/2024 Active Start: 10-04-2023 End: 07-18-2024 oxyCODONE-acetaminophen (PER COCET) 7.5-325 mg per tablet Take 1 tablet [...] 11:00pm cyclobenzaprine hydrochloride 10 mg oral tablet (14 sources) Muscle Relaxant Start: 08-08-2019 cyclobenzaprine (FLEXERIL) 10 mg tablet Take 1 tablet (10 mg total) by mouth as needed in the morning and 1 tablet (10 mg total) as needed at noon and 1 tablet (10 mg total) as needed in the evening. 07/06/2024 Active diclofenac sodium 0.01 mg/mg topical [...] diclofenac sodium-menthoL 1. 5-10 % combo pack (15 sources) Start: 01-08-2025 diclofenac sod ium-menthoL 1.5-10 % combo pack Apply 1 Application topically in the morning and 1 Application at noon and 1 Application in the evening and 1 Application before bedtime. 239 mL 1 01/08/2025 Active Start: 12-18-2024 End: 01-05-2025 diclofenac sodium-menthoL 1. 5-10 % combo pack Apply 1 Application topically in the morning and 1 Application at noon and 1 Application in the evening and 1 Application before bedtime. 239 mL 1 12/18/2024 01/05/2025 Discontinued (Reorder) Start: 12-18-2024 diclofenac sod ium-menthoL 1.5-10 % combo pack Apply 1 Application topically in the morning and 1 Application at noon and 1 Application in the evening and 1 Application before bedtime. 239 mL 1 12/18/2024 Active Start: 12-13-2024 End: 12-18-2024 diclofenac sodium-menthoL 1. 5-10 % combo pack Apply 1 Application topically in the morning and 1 Application at noon and 1 Application in the evening and 1 Application before bedtime. 239 mL 1 12/13/2024 12/18/2024 Discontinued (Reorder) Start: 12-13-2024 diclofenac sod ium-menthoL 1.5-10 % combo pack Apply 1 Application topically in the morning and 1 Application at noon and 1 Application in the evening and 1 Application before bedtime. 239 mL 1 12/13/2024 Active Start: 07-13-2024 End: 12-12-2024 diclofenac sodium-menthoL 1. 5-10 % combo pack Apply 1 Application topically in the morning and 1 Application at noon and 1 Application in the evening and 1 Application before bedtime. 239 mL 1 07/13/2024 12/12/2024 Discontinued (Reorder) Start: 07-13-2024 diclofenac sod ium-menthoL 1.5-10 % [...] tablet Active 25 MG PO Every morning February 23, 2024 9:51am empagliflozin (J ARDIANCE) 10 mg tablet tablet Active ferrous sulfate 325 mg oral tablet (20 sources) Start: 01-08-2025 take 1 tablet by mouth in the morning, then take 1 tablet by mouth at mealtime ferrous sulfate 325 (65 FE) MG tablet Indications: Anemia, unspecified Take 1 tablet (325 mg total) by mouth in the morning and 1 tablet (325 mg total) in the evening. Take with meals. 180 tablet 3 01/08/2025 Active Start: 06-19-2024 End: 01-05-2025 take 1 tablet by mouth in the morning, then take 1 tablet by mouth at mealtime ferrous sulfate 325 (65 FE) mg tablet Indications: Anemia, unspecified Take 1 tablet (325 mg total) by mouth in the morning and 1 tablet (325 mg total) in the evening. Take with meals. 180 tablet 3 06/19/2024 01/05/2025 Discontinued (Reorder) Start: 08-08-2019 End: 06-16-2024 take 1 tablet [...] r (FREESTYLE SYLVIA 14 DAY READER) misc (12 sources) flash glucose sc anning reader (FREESTYLE SYLVIA 14 DAY READER) misc Active flash glucose sc anning reader (FREESTYLE SYLVIA 14 DAY READER) misc FreeStyle Sylvia 14 Day [place] Active flash glucose sensor (FREEST YLE SYLVIA 14 DAY SENSOR) kit (12 sources) flash glucose se nsor (FREESTYLE SYLVIA 14 DAY SENSOR) kit Active flash glucose se nsor (FREESTYLE SYLVIA [...] days for 84 days Active FreeStyle Precision Harihs Test - (20 sources) FreeStyle Precis ion Harish Test - USE DIRECTED TWICE A DAY for 90 Active FreeStyle Precis ion Harish Test - as directed In Vitro bid for 90 days Active gabapentin 600 mg oral tablet (16 sources) Anti-epileptic Agent Start: 08-08-2019 gabapenti n [...] Discontinued 62 UNIT SUBCUT Every morning 36 90 October 04, 2023 10:36am February 23, 2024 [...] PER DAY; Start: 10-27-2023 Insulin Lispro -Aabc (Lyumjev Kwikpen U-100 Insulin) 100 unit/mL insulin pen Active 0 SUBCUT Use as Directed October 27, 2023 12:00am INJECT 25, 30, 35 UNITS ACCORDING TO MEAL SIZE BEFORE MEALS. CORRECTIVE SCALE 1:10 BEFORE MEALS 3 TIMES A DAY (AT BEDTIME IF GREATER THAN 200 HALF DOSE) DIRECTED, UP TO 120 UNITS PER DAY; isopropyl alcohol 0.7 ml/ml medicated pad (12 sources) alcohol swabs pa ds, medicated Active methylPREDNISolone 4 mg oral tablet (5 sources) Corticosteroid Start: 10-28-19 23 Medrol 4 MG as directed Orally for [...] 2 mg/dose (8 mg/3 mL) pen injector (12 sources) Start: 02-20-20 OZEMPIC 2 mg/dose (8 mg/3 mL) pen injector 02/19/2022 Active pen needle, diabetic (BD Anuja 2nd Gen Pen Needle) (3 sources) Start: 10-04-19 pen needle, diabetic (BD Anuja 2nd Gen Pen Needle) Active .Route October 03, 2023 11:00pm Start: 10-04-2023 pen needle, di abetic (BD Anuja 2nd Gen Pen Needle) Active .Route October 04, 2023 12:00am Start: 10-04-2023 pen needle, di abetic (BD Anuja 2nd Gen Pen Needle) Active .ROUTE October 04, 2023 12:00am rosuvastatin calcium 20 mg oral tablet (16 sources) HMG-CoA Reductase Inhibitor Start: 06-19-2024 End: 11-09-2024 take 1 tablet by mouth in the morning rosuvastatin (CRESTOR) 20 mg tablet Take 1 tablet (20 mg total) by mouth in the morning. 90 tablet 1 11/09/2024 Active Start: 10-04-2023 End: 07-18-2024 take 1 tablet by mouth once daily Rosuvastatin 10 mg tablet Discontinued 10 MG PO Daily October 03, 2023 11:00pm July 18, 2024 10:13am saccharomyces boulardii 250 mg oral capsule (13 sources) Start: 04-17-2024 take 1 capsule by [...] ( ) sertraline 100 mg oral tablet (17 sources) Serotonin Reuptake Inhibitor Start: 08-08-2019 End: 12-12-2024 take 1 tablet by mouth in the morning sertraline (ZOLOFT) 100 mg tablet Take 1 tablet (100 mg total) by mouth in the morning. 90 tablet 1 12/13/2024 Active tacrolimus 1 mg oral capsule (20 sources) Calcineurin Inhibitor Immunosuppressant Start: 08-08-2019 take 2 capsules by mouth once daily in the morning Tacrolimus 1 mg Capsule Active 2 MG PO Every morning August 08, 2019 12:00am Start: 08-08-2019 take 1 capsule by mo ut once daily at bedtime Tacrolimus 1 mg Capsule Active 1 MG PO Daily at bedtime August 08, 2019 12:00am Start: 08-08-2019 take 2 mg by mouth o nce daily in the morning Tacrolimus Active 2 MG PO Every morning August 08, 2019 1:00am traZODone hydrochloride 150 mg oral tablet (16 sources) Serotonin Reuptake Inhibitor Start: 09-06-2024 take [...] (17 sources) take 1 capsule by mo ut once daily Vitamin D3 2000 Unit 1 capsule Orally Once a day Active Completed/Discontinued Medications Medication Drug Class(es) Dates Sig (Normalized) Sig (Original) acetaminophen 325 mg / HYDROcodone bitartrate 5 mg oral tablet (4 sources) Opioid Agonist Start: 08-21-2019 End: 02-23-2024 take 1 tablet by mouth every four to six hours as needed for pain Hydrocodone-Acetamin ophen ([place]) 5-325 mg tablet Discontinued 1 - 2 TAB PO EVERY 4-6 HOURS as needed for Pain 30 4 August 21, 2019 February 23, 2024 9:22am atorvastatin [...] Start: 08-29-2020 FreeStyle Libr e 14 Day [place] - as directed Daily for 365 days Aug, Not-Taking Start: 08-29-2020 FreeStyle Libr e 14 Day [place] - as directed Daily for 365 days Aug, Active FreeStyle Sylvia 14 Day Senso [...] 1 TAB PO Twice daily 03 18August 20, 2019 11:00pm October 04, 2023 9:38am triamcinolone acetonide 40 mg/ml injectable suspension (20 sources) Corticosteroid Start: 07-22-2022 Kenalog-40 Jul, 40 mg Start: 07-22-2022 Anthony-40 Jul, 20 mg Problems Active Problems Problem Classification Problem Date Documented Date Episodic/Chronic Administrative/socia l admission (20 sources) Dietary management surveillance; Translations: [Dietary counseling and surveillance] Onset: 08-05-2021 Resolved: 12-04-2021 Episodic Anxiety disorders (12 sources) Anxiety; Translations: [Anxiety disorder, unspecified] Onset: 05-18-2022 05-18-2022 Chronic Chronic kidney disease (9 sources) Kidney transplant status; Translations: [Kidney replaced by transplant] Onset: 08-05-2021 Resolved: 12-04-2021 Chronic Deficiency and other anemia (2 sources) Anemia; Translations: [Anemia, unspecified] 06-16-2024 Episodic Diabetes mellitus with complications (20 sources) Disorder of kidney due to diabetes mellitus; Translations: [Type 2 diabetes mellitus with diabetic nephropathy] Onset: 01-11-2018 Resolved: 12-04-2021 Chronic Diabetes mellitus without complication (13 sources) Type 2 diabetes mellitus without complications; Translations: [Diabetes mellitus] Onset: 03-28-2013 05-18-2022 Chronic Disorders of lipid metabolism (20 sources) Hyperlipidemia; Translations: [Hyperlipidemia, unspecified] Onset: 03-28-2013 Resolved: 12-04-2021 Chronic Essential hypertension (20 sources) Hypertensive disorder; Translations: [Essential (primary) hypertension] Onset: 03-28-2013 Resolved: 12-04-2021 Chronic Genitourinary symptoms and ill-defined conditions (1 source) Proteinuria, unspecified Episodic Immunity disorders (13 sources) Immunosuppression; Translations: [Immunodeficiency, unspecified] Onset: 04-11-2013 05-18-2022 Chronic Menopausal disorders (17 sources) Menopause present; Translations: [Menopausal and female climacteric states] Chronic Nutritional deficiencies (20 sources) Vitamin D deficiency; Translations: [Vitamin D deficiency, unspecified] Onset: 08-05-2021 Resolved: 12-04-2021 Chronic Osteoarthritis (8 sources) Arthritis of hand; Translations: [Primary osteoarthritis, right hand] Chronic Osteoporosis (12 sources) Osteoporosis; Translations: [Age-related osteoporosis without current pathological fracture] Onset: 10-06-2017 05-18-2022 Chronic Other acquired deformities (20 sources) Spondylolisthesis; Translations: [Spondylolisthesis, lumbar region] Episodic Other acquired deformities (20 sources) Lumbar spondylolisthesis; Translations: [Spondylolisthesis, lumbar region] 08-10-2024 Episodic Other aftercare (20 sources) Long-term current use of insulin; Translations: [custodial (current) use of insulin] Episodic Other aftercare (7 sources) 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; 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] Onset: 08-05-2021 Resolved: [...] Chronic Other nutritional; endocrine; and metabolic disorders (12 sources) Morbid obesity; Translations: [Morbid (severe) obesity due to excess calories] Onset: 05-19-2022 05-19-2022 Chronic Other nutritional; endocrine; and metabolic disorders (1 source) Morbid (severe) obesity due to excess calories; Translations: [Morbid (severe) obesity due to excess calories] Onset: 05-19-2022 Chronic Other screening for suspected conditions (not mental disorders or infectious disease) (2 sources) Patient encounter status; Translations: [Encounter for screening mammogram for malignant neoplasm of breast] 12-25-2024 Episodic Other skin disorders (1 source) Localized swelling, mass and lump, right upper limb Episodic Residual codes; unclassified (17 sources) Noncompliance with treatment; Translations: [Patient's noncompliance with other medical treatment and regimen] Episodic Residual codes; unclassified (1 source) Other specified postprocedural states Episodic Rheumatoid arthritis and related disease (1 source) Arthropathy of lumbar facet joint 08-10-2024 Chronic Spondylosis; intervertebral disc disorders; other back problems (19 sources) Spondylosis without myelopathy or radiculopathy, lumbar [...] Episodic/Chronic Cancer of kidney and renal pelvis (12 sources) Renal cell carcinoma; Translations: [Malignant neoplasm of unspecified kidney, except renal pelvis] Onset: 03-28-2013 Resolved: 05-19-2022 05-19-2022 Chronic Immunizations and screening for infectious disease (1 source) Encounter for immunization; Translations: [Encounter for immunization] Onset: 04-13-2024 Episodic Mood disorders (12 sources) Mood disorders Onset: 04-13-2024 Resolved: 12-12-2024 04-13-2024 Mycoses (12 sources) Onychomycosis; Translations: [Tinea unguium] Onset: 01-11-2018 05-18-2022 Episodic Other acquired deformities (1 source) Spondylolisthesis, lumbar region; Translations: [Spondylolisthesis, lumbar region] Onset: 08-10-2024 Episodic Other and unspecified benign neoplasm (12 sources) History of polyp of colon; Translations: [History of colonic polyps] Onset: 08-15-2020 03-14-2024 Episodic Other injuries and conditions due to external causes (1 source) Retained plastic fragments; Translations: [Retained plastic fragments] Onset: 08-17-2024 Episodic Residual codes; unclassified (12 sources) Insomnia; Translations: [Insomnia, unspecified] Onset: 05-18-2022 05-18-2022 Episodic Residual codes; unclassified (1 source) Pain, unspecified; Translations: [Pain, unspecified] Onset: 06-05-2024 Episodic Spondylosis; intervertebral disc disorders; other back problems (20 sources) Spinal stenosis, lumbar region without neurogenic claudication; Translations: [Intervertebral disc disorders with radiculopathy, lumbar region] Onset: 01-06-2022 Episodic Unclassified (1 source) LOW BACK PAIN, UNSPECIFIED; Translations: [LOW BACK PAIN, UNSPECIFIED] Onset: 09-24-2022 Unclassified (10 sources) Onset: 08-10-2024 08-10-2024 Results Test Name Value Interpretation Reference Range Facility ALBUMINon 02-22-2025 Albumin [Mass/Vol] 4.2 g/dL Normal 3.2-5.3 [facility] Comment on above: Performed By: #### David CASTRO, 1750-12, BMP, , 7-1 #### [facility] ([id number]) [address] [place] [address], [address] [place] [address] #### [id number] #### [facility] ([id number]) [address] [place] [address] BASIC METABOLIC PANELon 02-12 Anion gap [Moles/Vol] 15 mmol/L Normal 5-15 [facility] Comment on above: Performed By: #### David CASTRO, 1750-12, BMP, , 7-1 #### [facility] ([id number]) [address] [place] [address], [address] [place] [address] #### [id number] #### [facility] ([id number]) [address] [place] [address] 64517 Calcium [Mass/Vol] 9.1 mg/dL Normal 8.5-10.5 [facility] Comment on above: Performed By: #### David CASTRO, 1750-12, BMP, , 7-1 #### [facility] ([id number]) [address] [place] [address], [address] [place] [address] #### [id number] #### [facility] ([id number]) [address] [place] [address] 00584 Chloride [Moles/Vol] 100 mmol/L Normal 98-109 [facility] Comment on above: Performed By: #### David CASTRO, 175-7, BMP, , 2777-1 #### [facility] ([id number]) [address] [place] [address], [facility] [address] [place] [address] #### [id number] #### [facility] ([id number]) [address] [place] [address] 65038 CO2 [Moles/Vol] 23 mmol/L Normal 22-32 [facility] Comment on above: Performed By: #### David CASTRO, 175-7, BMP, , 2777-1 #### [facility] ([id number]) [address] [place] [address] [address] [place] [address] #### [id number] #### [facility] ([id number]) [address] [place] [address]348 Creatinine [Mass/Vol] 0.71 mg/dL Normal 0.40-1.00 [facility] Comment on above: Result Comment: METH OD TRACEABLE TO IDMS STANDARD Performed By: #### David CASTRO, 175-7, BMP, , 2777-1 #### [facility] ([id number]) [address] [place] [address] [address] [place] [address] #### [id number] #### [facility] ([id number]) [address] [place] [address]881 EGFR (CKD-EPI) NON-RACE DEPENDENT >^90 Normal >=60 [facility] Comment on above: Result Comment: Repo rted eGFR is based on the CKD-EPI 2020 equation that does not use a race coefficient. Performed By: #### C MATTHEW, 1750-12, BMP, , 2776-06 #### [facility] ([id number]) [address] [place] [address], [address] [place] [address] #### [id number] #### [facility] ([id number]) [address] [place] [address]1811 Glucose [Mass/Vol] 255 mg/dL High 65-99 [facility] Comment on above: Performed By: #### C MATTHEW, 1750-12, BMP, , 2776-06 #### [facility] ([id number]) [address] [place] [address], [address] [address] #### [id number] #### [facility] ([id number]) [address] [place] [address] 41654 Potassium [Moles/Vol] 4.2 mmol/L Normal 3.5-5.0 [facility] Comment on above: Performed By: #### C MATTHEW, 1750-12, BMP, , 1 #### [facility] ([id number]) [address] [place] [address], [address] [address] #### [id number] #### [facility] ([id number]) [address] [place] [address]14 Sodium [Moles/Vol] 138 mmol/L Normal 134-146 [facility] Comment on above: Performed By: #### C MATTHEW, 1750-12, BMP, , [address] #### [facility] ([id number]) [address] [place] [address], [address] [address] #### [id number] #### [facility] ([id number]) [address] [place] [address]140 Urea nitrogen [Mass/Vol] 18 mg/dL Normal 5-27 [facility] Comment on above: Performed By: #### C BC, 1751-7, BMP, 91975-9, 2777-1 #### [facility] ([id number]) [address], [address] [place] [address] #### 65033-8 #### [facility] ([id number]) [address] [place] [address], [place] [address] CBC (NO DIFF)on 02-22-2025 Erythrocyte distribution width (RBC) [Ratio] 14.1 % Normal 11.5-15 [facility] Comment on above: Performed By: #### C BC #### [facility] ([facility]) [address] [place] [address] VIR Hematocrit (Bld) [Volume fraction] 43.7 % Normal 35-47 [facility] Comment on above: Performed By: #### C BC #### [facility] ([facility]) [address] [place] [address] VIR Hemoglobin (Bld) [Mass/Vol] 14.3 g/dL Normal 11.7-15.5 [facility] Comment on above: Performed By: #### C BC #### [facility] ([facility]) [address] [place] [address] VIR MCH (RBC) [Entitic mass] 29.1 pg Normal 27-34 [facility] Comment on above: Performed By: #### C BC #### [facility] ([facility]) [address] [place] [address] VIR MCHC (RBC) [Mass/Vol] 32.6 g/dL Normal 32-36 [facility] Comment on above: Performed By: #### C BC #### [facility] ([facility]) [address] [place] [address] VIR MCV (RBC) [Entitic vol] 89 fL Normal 80-[address] [facility] Comment on above: Performed By: #### C BC #### [facility] ([facility]) [address] [place] [address] VIR Platelet mean volume (Bld) [Entitic vol] 11.6 fL Normal 7-12 [facility] Comment on above: Performed By: #### C BC #### [facility] ([facility]) [address] [place] [address] VIR Platelets (Bld) [#/Vol] 122 10*3/uL Low 150-450 [facility] Comment on above: Performed By: #### C BC #### [facility] ([facility]) [address] [place] [address] VIR RBC COUNT 4.90 X10E12/L Normal 3.8-5.2 [facility] Comment on above: Performed By: #### C BC #### [facility] ([facility]) [address] [place] [address] VIR WBC (Bld) [#/Vol] 5.5 10*3/uL Normal 4-11 [facility] Comment on above: Performed By: #### C BC #### [facility] ([facility]) [address] [place] [address] VIR MAGNESIUMon 02-22-2025 Magnesium [Mass/Vol] 2.0 mg/dL Normal 1.8-2.6 [facility] Comment on above: Performed By: #### C BC, 1751-7, BMP, 73744-6, 2777-1 #### [facility] ([id number]) [address] [place] [address] #### 47950-3 #### [facility] ([id number]) [address] [place] [address], [place] [address] MICROALBUMIN / CREATININE UR INE RATIOon 02-22-2025 Albumin DL <= 20 mg/L (U) [Mass/Vol] 6.1 mg/dL High 0.0-1.9 [facility] Comment on above: Performed By: #### David CASTRO, 1750-12, BMP, , 2776-06 #### [facility] ([id number]) [address] [facility] [place] [address] #### 41287-2 #### [facility] ([id number]) [address] [place] [address] MALB/CREAT RATIO 132.8 mg/g High 0.0-30.0 [facility] Comment on above: Performed By: #### David CASTRO, 1750-12, SHAKILA, , 2776-06 #### [facility] ([id number]) [address] [facility] [place] [address] #### 21456-3 #### [facility] ([id number]) [address] [place] [address] URINE CREATININE,RDM 45.93 mg/dL Normal [facility] Comment on above: Performed By: #### David CASTRO, 1750-12, SHAKILA, , 2776-06 #### [facility] ([id number]) [address] [facility] [facility] [place] [address] #### 36898-5 #### [facility] ([id number]) [address] [place] [address] PARATHYROID HORMOME, INTACTo n 02-22-2025 PTH INTACT 51 pg/mL Normal 12-88 [facility] Comment on above: Performed By: #### David CASTRO, 1750-12, BMP, , 2776-06 #### [facility] ([id number]) [address] [facility], [address] [place] [address] #### 59649-3 #### [facility] ([id number]) [address] [place] [address] PHOSPHORUSon 02-22-2025 Phosphate [Mass/Vol] 3.7 mg/dL Normal 2.4-4.9 [facility] Comment on above: Performed By: #### C MATTHEW, 175-7, BMP, , 2777-1 #### [facility] ([id number]) [address] [place] [address], [address] [place] [address] #### 53634-5 #### [facility] ([id number]) [address] [place] [address] TACROLIMUS, Bon 02-22-2025 TACROLIMUS, B 4.1 ng/mL Low 5.0-15.0 (Trough) [facility] Comment on above: Result Comment: ADDITIONAL INFORMATION Target steady-state trough concentrations vary depending on the type of transplant, concomitant immunosuppression, clinical/institutional protocols, and time post-transplant. Results should be interpreted in conjunction with this clinical information and any physical signs/symptoms of rejection/toxicity. Testing performed by Liquid Chromatography-Tandem Mass Spectrometry (LC-MS/MS). This test was developed and its performance characteristics determined by [facility] in a manner consistent with CLIA requirements. This test has not been cleared or approved by the U.S. Food and Drug Administration. Test Performed by: [facility] [address] [id number] Route Jumper: Buddy Ballard Ph.D.; CLIA# [id number] Performed By: #### David CASTRO, 175-7, BMP, , 2777-1 #### [facility] ([id number]) [address] [place] [address], [address] [place] [address] #### 02755-3 #### [facility] ([id number]) [address] [place] [address] URINALYSISon 02-22-2025 Bilirubin Ql (U) Negative Normal Negative [facility] Comment on above: Order Comment: Urine received without preservative. Delays in transport may affect results. Interpret with caution. A clinical correlation is recommended. Performed By: #### C MATTHEW, 1750-12, [facility], , 2776-06 #### [facility] ([id number]) [address] [facility], [address] [place] [address] #### 01098-3 #### [facility] ([id number]) [address] [place] [address] BLOOD/HGB Negative Normal Negative [facility] Comment on above: Order Comment: Urine received without preservative. Delays in transport may affect results. Interpret with caution. A clinical correlation is recommended. Performed By: #### C , 1750-12, [facility], , 2776-06 #### [facility] ([id number]) [address] [facility], [address] [place] [address] #### 27922-0 #### [facility] ([id number]) [address] [place] [address] Color (U) Yellow Normal Yellow [facility] Comment on above: Order Comment: Urine received without preservative. Delays in transport may affect results. Interpret with caution. A clinical correlation is recommended. Performed By: #### C MATTHEW, 1750-12, [facility], , 2776-06 #### [facility] ([id number]) [address] [facility], [address] [place] [address] #### 02524-5 #### [facility] ([id number]) [address] [place] [address] Glucose Ql (U) >1000 mg/dL Abnormal Negative [facility] Comment on above: Order Comment: Urine received without preservative. Delays in transport may affect results. Interpret with caution. A clinical correlation is recommended. Performed By: #### David CASTRO, 1750-12, [facility], , 2776-06 #### [facility] ([id number]) [address] [place] [address] #### 15615-6 #### [facility] ([id number]) [address] [place] [address] Ketones Ql (U) Negative Normal Negative [facility] Comment on above: Order Comment: Urine received without preservative. Delays in transport may affect results. Interpret with caution. A clinical correlation is recommended. Performed By: #### C MATTHEW, 1750-12, [facility], , 2776-06 #### [facility] ([id number]) [address], [address] [place] [address] #### 27771-3 #### [facility] ([id number]) [address] [place] [address] Leukocyte esterase Test strip Ql (U) Negative Normal Negative [facility] Comment on above: Order Comment: Urine received without preservative. Delays in transport may affect results. Interpret with caution. A clinical correlation is recommended. Result Comment: High Concentrations of Glucose May Decrease the Reactivity of the Dipstick Leukocyte Test Pad. Performed By: #### David CASTRO, 1750-12, [facility], , 2776-06 #### [facility] ([id number]) [address] [place] [address] #### 47399-7 #### [facility] ([id number]) [address] [place] [address] Nitrite Ql (U) Negative Normal Negative [facility] Comment on above: Order Comment: Urine received without preservative. Delays in transport may affect results. Interpret with caution. A clinical correlation is recommended. Performed By: #### David CASTRO, 1750-12, [facility], , 2776-06 #### [facility] ([id number]) [address] [place] [address] #### 82615-4 #### [facility] ([id number]) [address] [place] [address] PH,URINE 5.0 Normal 5.0-8.5 [facility] Comment on above: Order Comment: Urine received without preservative. Delays in transport may affect results. Interpret with caution. A clinical correlation is recommended. Performed By: #### C BC, 1750-12, BMP, , 2776-06 #### [facility] ([id number]) [address] [place] [address] #### 77844-2 #### [facility] ([id number]) [address] [place] [address] Protein Ql (U) Negative Normal Negative [facility] Comment on above: Order Comment: Urine received without preservative. Delays in transport may affect results. Interpret with caution. A clinical correlation is recommended. Performed By: #### David CASTRO, 1750-12, BMP, , 2776-06 #### [facility] ([id number]) [address] [place] [address] #### 54910-5 #### [facility] ([id number]) [address] [place] [address] Specific gravity (U) [Rel density] 1.035 Normal 1.003-1.035 [facility] Comment on above: Order Comment: Urine received without preservative. Delays in transport may affect results. Interpret with caution. A clinical correlation is recommended. Performed By: #### C BC, 1750-7, BMP, , 2776- #### [facility] ([id number]) [address], [address] [place] [address] #### 47907-8 #### [facility] ([id number]) [address] [place] [address] TURBIDITY Clear Normal Clear [facility] Comment on above: Order Comment: Urine received without preservative. Delays in transport may affect results. Interpret with caution. A clinical correlation is recommended. Performed By: #### C , 1751-7, [facility], 89166-7, 2777-1 #### [facility] ([id number]) [address] [place] [address], [address] [place] [address] #### 09455-1 #### [facility] ([id number]) [address] [place] [address] UROBILINOGEN <1.1 eu/dL Normal <1.1 eu/dL [facility] Comment on above: Order Comment: Urine received without preservative. Delays in transport may affect results. Interpret with caution. A clinical correlation is recommended. Performed By: #### C , 175-7, [facility], 24966-4, 2777-1 #### [facility] ([id number]) [address] [place] [address], [address] [place] [address] #### 37438-9 #### [facility] ([id number]) [address] [place] [address] 09112 VITAMIN D 25 HYDROXYon 02-22 VITAMIN D 25 HYD TOT 31.7 ng/mL Normal 30.0-100.0 [facility] Comment on above: Order Comment: Vitam in D status 25 [place] Vitamin D Deficien cy <20 ng/mLInsufficiency 20-29 ng/mLSufficiency 30-100 ng/mLToxicity >100 ng/mLNOTE: A pediatric reference range has not been established by the labor supervisor of this kit. The [place] [employer] recommends a Vitamin D level of = or >20ng/mL in infants and children. Performed By: #### David CASTRO, 1750-12, BMP, , 2776-06 #### [facility] ([id number]) [address], [address] [place] [address] #### 54337-4 #### [facility] ([id number]) [address] [place] [address] ALBUMINon 08-17-2024 Albumin [Mass/Vol] 4.1 g/dL Normal 3.2-5.3 [facility] Comment on above: Performed By: #### David CASTRO, 1750-12, BMP, , 2776-06 #### [facility] ([id number]) [address] [place] [address] #### 69038-5 #### [facility] ([id number]) [address] [place] [address] BASIC METABOLIC PANLon 08-17 Anion gap [Moles/Vol] 10 mmol/L Normal 5-15 [facility] Comment on above: Performed By: #### David CASTRO, 1750-12, BMP, , 2776-06 #### [facility] ([id number]) [address] [place] [address] #### 49343-4 #### [facility] ([id number]) [address] [place] [address]2572 Calcium [Mass/Vol] 8.9 mg/dL Normal 8.5-10.5 [facility] Comment on above: Performed By: #### David CASTRO, 1750-12, BMP, , 2776-06 #### [facility] ([id number]) [address] [place] [address] #### 29527-7 #### [facility] ([id number]) [address] [place] [address]892 Chloride [Moles/Vol] 100 mmol/L Normal 98-109 [facility] Comment on above: Performed By: #### David CASTRO, 1750-, BMP, , 7-1 #### [facility] ([id number]) [address] [place] [address], [address] [address] #### 01215-8 #### [facility] ([id number]) [address] [place] [address] 28629 CO2 [Moles/Vol] 27 mmol/L Normal 22-32 [facility] Comment on above: Performed By: #### David CASTRO, 1750-12, BMP, , 2777-1 #### [facility] ([id number]) [address] [place] [address] #### 99267-8 #### [facility] ([id number]) [address] [place] [address]1698 Creatinine [Mass/Vol] 0.74 mg/dL Normal 0.40-1.00 [facility] Comment on above: Result Comment: METH OD TRACEABLE TO IDMS STANDARD Performed By: #### David CASTRO, 175-7, SHAKILA, , 2777-1 #### [facility] ([id number]) [address] [place] [address], [address] [address] #### 87556-2 #### [facility] ([id number]) [address] [place] [address]802 GFR/1.73 sq M.predicted among non-blacks MDRD (S/P/Bld) [Vol rate/Area] 88 mL/min/{1.73_m2} Normal >59 [facility] Comment on above: Result Comment: Reported eGFR is based on the CKD-EPI 2020 equation that does not use a race coefficient. Performed By: #### C MATTHEW, 1750-12, BMP, , 2776-06 #### [facility] ([id number]) [address] [facility], [address] [place] [address] #### 82765-8 #### [facility] ([id number]) [address] [place] [address] 22776 Glucose [Mass/Vol] 276 mg/dL High 65-99 [facility] Comment on above: Performed By: #### C MATTHEW, 1750-12, BMP, , 2776-06 #### [facility] ([id number]) [address] [place] [address], [address] [address] #### 21940-5 #### [facility] ([id number]) [address] [place] [address] 90098 Potassium [Moles/Vol] 4.1 mmol/L Normal 3.5-5.0 [facility] Comment on above: Performed By: #### David CASTRO, 1750-12, BMP, , 2776-06 #### [facility] ([id number]) [address] [place] [address], [address] [address] #### 31020-2 #### [facility] ([id number]) [address] [place] [address] 73274 Sodium [Moles/Vol] 137 mmol/L Normal 134-146 [facility] Comment on above: Performed By: #### David CASTRO, 1750-12, BMP, , 27771 #### [facility] ([id number]) [address] [place] [address], [address] [place] [address] #### 36174-5 #### [facility] ([id number]) [address] [place] [address] 78206 Urea nitrogen [Mass/Vol] 16 mg/dL Normal 5-27 [facility] Comment on above: Performed By: #### David CASTRO, 1750-12, BMP, , 2776-06 #### [facility] ([id number]) [address] [place] [address] #### 41165-3 #### [facility] ([id number]) [address] [place] [address] 34320 COMPLETE BLOOD COUNTon 08-17 Erythrocyte distribution width (RBC) [Ratio] 14.1 % Normal 11.5-15.0 [facility] Comment on above: Performed By: #### David CASTRO, 1750-12, BMP, , 2776-06 #### [facility] ([id number]) [address] [facility] [place] [address] #### 46035-7 #### [facility] ([id number]) [address] [place] [address]46 Hematocrit (Bld) [Volume fraction] 44.9 % Normal 35-47 [facility] Comment on above: Performed By: #### David CASTRO, 1750-12, BMP, , 2776-06 #### [facility] ([id number]) [address] [facility] [place] [address] #### 33757-9 #### [facility] ([id number]) [address] [place] [address] 26358 Hemoglobin (Bld) [Mass/Vol] 14.6 g/dL Normal 11.7-15.5 [facility] Comment on above: Performed By: #### David CASTRO, 1750-12, BMP, , 2776-06 #### [facility] ([id number]) [address] [facility] [place] [address] #### 18517-2 #### [facility] ([id number]) [address] [place] [address] 38483 MCH (RBC) [Entitic mass] 29.5 pg Normal 27-34 [facility] Comment on above: Performed By: #### David CASTRO, 1750-12, BMP, , 2776-06 #### [facility] ([id number]) [address] [place] [address], [address] [place] [address] #### 65629-7 #### [facility] ([id number]) [address] [place] [address] 98190 MCHC (RBC) [Mass/Vol] 32.5 g/dL Normal 32-36 [facility] Comment on above: Performed By: #### David CASTRO, 1750-12, BMP, , 2776-06 #### [facility] ([id number]) [address] [place] [address], [address] [place] [address] #### 67884-4 #### [facility] ([id number]) [address] [place] [address] 30606 MCV (RBC) [Entitic vol] 91 fL Normal 80-100 [facility] Comment on above: Performed By: #### David CASTRO, 1750-12, BMP, , 2776-06 #### [facility] ([id number]) [address] [place] [address], [address] [place] [address] #### 40798-8 #### [facility] ([id number]) [address] [place] [address] 54747 Platelet mean volume (Bld) [Entitic vol] 11.0 fL Normal 7-12 [facility] Comment on above: Performed By: #### David CASTRO, 1750-12, BMP, , 2776-06 #### [facility] ([id number]) [address] [facility], [address] [place] [address] #### 46178-5 #### [facility] ([id number]) [address] [place] [address] 33206 Platelets (Bld) [#/Vol] 157 10*3/uL Normal 150-450 [facility] Comment on above: Performed By: #### David CASTRO, 175-7, BMP, , 2777-1 #### [facility] ([id number]) [address] [facility], [address] [place] [address] #### 97134-1 #### [facility] ([id number]) [address] [place] [address] 12539 RBC COUNT 4.95 X10E12/L Normal 3.80-5.20 [facility] Comment on above: Performed By: #### David CASTRO, 175-7, SHAKILA, , 2777-1 #### [facility] ([id number]) [address] [facility], [address] [place] [address] #### 23163-7 #### [facility] ([id number]) [address] [place] [address] 65591 WBC (Bld) [#/Vol] 6.8 10*3/uL Normal 4.0-11.0 [facility] Comment on above: Performed By: #### David CASTRO, 175-7, BMP, , 2777-1 #### [facility] ([id number]) [address] [facility], [address] [place] [address] #### 31344-6 #### [facility] ([id number]) [address] [place] [address] 986[address] MAGNESIUMon 08-17-2024 Magnesium [Mass/Vol] 1.9 mg/dL Normal 1.8-2.6 [facility] Comment on above: Performed By: #### C MATTHEW, 175-7, BMP, , 2776-1 #### [facility] ([id number]) [address] [place] [address] #### 97700-3 #### [facility] ([id number]) [address] [place] [address] 03840 MICROALBUMIN - ALBUMIN:CREAT ININE URINE RATIOon 08-17-2024 ALB/CREAT RATIO 88.2 mg/g creat High 0.0-30.0 [facility] Comment on above: Performed By: #### MERRICK Palma #### [facility] ([id number]) [address] [facility], [address] [place] [address] Albumin DL <= 20 mg/L (U) [Mass/Vol] 6.9 mg/dL High 0.0-1.9 [facility] Comment on above: Performed By: #### MERRICK Palma #### [facility] ([id number]) [address], [address] [place] [address] URINE CREAT 78.22 mg/dL Normal [facility] Comment on above: Performed By: #### MERRICK Palma #### [facility] ([id number]) [address] [place] [address] PHOSPHORUSon 08-17-2024 Phosphate [Mass/Vol] 3.3 mg/dL Normal 2.4-4.9 [facility] Comment on above: Performed By: #### C MATTHEW, 175-, BMP, , 2777-1 #### [facility] ([id number]) [address], [address] [place] [address] #### 96405-3 #### [facility] ([id number]) [address] [place] [address] 53345 Tacrolimus trough (Bld) [Mas s/Vol]on 08-17-2024 Tacrolimus, B 6.2 ng/mL Normal 5.0-15.0 (Trough) [facility] Comment on above: Result Comment: NOTE ADDITIONAL INFORMATION Target steady-state trough concentrations vary depending on the type of transplant, concomitant immunosuppression, clinical/institutional protocols, and time post-transplant. Results should be interpreted in conjunction with this clinical information and any physical signs/symptoms of rejection/toxicity. Testing performed by Liquid Chromatography-Tandem Mass Spectrometry (LC-MS/MS). This test was developed and its performance characteristics determined by [facility] in a manner consistent with CLIA requirements. This test has not been cleared or approved by the U.S. Food and Drug Administration. Test Performed by: [place] [address] Route Jumper: Buddy Ballard Ph.D.; CLIA# [id number] Performed By: #### C BC, 1751-7, BMP, 03748-3, 2777-1 #### [facility] ([id number]) [address] [place] [address] #### 33757-0 #### [facility] ([id number]) [address] [place] [address], [place] [address] URINALYSISon 08-17-2024 Bilirubin Ql (U) Negative Normal NEG [facility] Comment on above: Performed By: #### MERRICK Palma #### [facility] ([id number]) [address] [place] [address] BLOOD/HGB Negative Normal NEG [facility] Comment on above: Performed By: #### MERRICK Palma #### [facility] ([id number]) [address] [place] [address] Color (U) YELLOW Normal YELLOW [facility] Comment on above: Performed By: #### MERRICK Palma #### [facility] ([id number]) [address] [place] [address] Glucose Ql (U) >1000 Abnormal NEG [facility] Comment on above: Performed By: #### Linus Macdonald JACQUIMAXIMILIAN #### [facility] ([id number]) [address] [place] [address] Ketones Ql (U) Negative Normal NEG [facility] Comment on above: Performed By: #### Linus Macdonald JACQUIMAXIMILIAN #### [facility] ([id number]) [address] [place] [address] Leukocyte esterase Test strip Ql (U) Negative Normal NEG [facility] Comment on above: Result Comment: HIGH CONCENTRATIONS OF GLUCOSE MAY DECREASE THE REACTIVITY OF THE DIPSTICK LEUKOCYTE TEST PAD. Performed By: #### MERRICK Palma #### [facility] ([id number]) [address] [place] [address] Nitrite Ql (U) Negative Normal NEG [facility] Comment on above: Performed By: #### MERRICK Plama #### [facility] ([id number]) [address] [place] [address] pH (U) 6.0 [pH] Normal 5.0-8.5 [facility] Comment on above: Performed By: #### MERRICK Palma #### [facility] ([id number]) [address] [place] [address] Protein Ql (U) Trace Abnormal NEG [facility] Comment on above: Performed By: #### MERRICK Palma #### [facility] ([id number]) [address] [place] [address] R.B.CELLS 2 /hpf Normal 0-5 [facility] Comment on above: Performed By: #### U A, MALBU #### [facility] ([id number]) [address] [place] [address] Specific gravity (U) [Rel density] 1.044 High 1.003-1.035 [facility] Comment on above: Performed By: #### U Renae, MALBU #### [facility] ([id number]) [address], [address] [place] [address] SQUAMOUS EPITHELIUM 1 /hpf Normal 0-5 [facility] Comment on above: Performed By: #### U Renae, MALBU #### [facility] ([id number]) [address], [address] [place] [address] TURBIDITY CLEAR Normal CLEAR [facility] Comment on above: Performed By: #### U Renae, MALMAXIMILIAN #### [facility] ([id number]) [address] [place] [address] Urobilinogen (U) [Mass/Vol] mg/dL Normal <1.1 [facility] Comment on above: Performed By: #### U Renae, MALMAXIMILIAN #### [facility] ([id number]) [address] [place] [address] W.B.CELLS 6 /hpf High 0-5 [facility] Comment on above: Performed By: #### U Renae, MALBU #### [facility] ([id number]) [address] [place] [address] XR LUMBAR SPINE AP, LATERAL, FLEXION AND [...] Perez MD on 08/09/2024 1:45 PM Normal [facility] 36on 05-26-2024 36 LVM for pt to call clinic to schedule consult with Dr. Thompson for neurosurgical eval prior to SCS trial with pain mgmt . 30 min. No reps needed for appt. Letter sent to pt's home. Normal [facility] COMPREHENSIVE METABOLIC PANE Henry 04-13-2024 Albumin [Mass/Vol] 4.0 g/dL Normal 3.2-5.3 [facility] Comment on above: Performed By: #### C TAYLOR, 00829-7 #### [facility] ([id number]) [address] [place] [address] ALP [Catalytic activity/Vol] 90 U/L Normal 39-130 [facility] Comment on above: Performed By: #### David VAZQUEZ, 50606-3 #### [facility] ([id number]) [address] [place] [address] ALT [Catalytic activity/Vol] 13 U/L Normal 0-31 [facility] Comment on above: Performed By: #### C TAYLOR, 07235-0 #### [facility] ([id number]) [address] [place] [address] Anion gap [Moles/Vol] 13 mmol/L Normal 5-15 [facility] Comment on above: Performed By: #### C TAYLOR, 65162-0 #### [facility] ([id number]) [address] [place] [address] AST [Catalytic activity/Vol] 12 U/L Normal 0-41 [facility] Comment on above: Performed By: #### C TAYLOR, 09509-5 #### [facility] ([id number]) [address] [place] [address] Bilirubin [Mass/Vol] 0.4 mg/dL Normal 0.3-1.2 [facility] Comment on above: Performed By: #### David VAZQUEZ, 99169-4 #### [facility] ([id number]) [address] [place] [address] Calcium [Mass/Vol] 9.1 mg/dL Normal 8.5-10.5 [facility] Comment on above: Performed By: #### David VAZQUEZ, 28851-0 #### [facility] ([id number]) [address] [place] [address] Chloride [Moles/Vol] 103 mmol/L Normal 98-109 [facility] Comment on above: Performed By: #### David VAZQUEZ, 48436-1 #### [facility] ([id number]) [address] [place] [address] CO2 [Moles/Vol] 25 mmol/L Normal 22-32 [facility] Comment on above: Performed By: #### David VAZQUEZ, 51817-6 #### [facility] ([id number]) [address] [address] [place] [address] Creatinine [Mass/Vol] 0.55 mg/dL Normal 0.40-1.00 [facility] Comment on above: Result Comment: METH OD TRACEABLE TO IDMS STANDARD Performed By: #### David VAZQUEZ, 32268-8 #### [facility] ([id number]) [address] [address] [place] [address] eGFR (CKD-EPI) NON-RACE DEPENDENT >90 Normal >59 [facility] Comment on above: Result Comment: Reported eGFR is based on the CKD-EPI 2020 equation that does not use a race coefficient. Performed By: #### David VAZQUEZ, 62672-1 #### [facility] ([id number]) [address] [place] [address] Glucose [Mass/Vol] 231 mg/dL High 65-99 [facility] Comment on above: Performed By: #### David VAZQUEZ, 45804-7 #### [facility] ([id number]) [address] [place] [address] Potassium [Moles/Vol] 3.8 mmol/L Normal 3.5-5.0 [facility] Comment on above: Performed By: #### David VAZQUEZ, 65803-6 #### [facility] ([id number]) [address] [place] [address] Protein [Mass/Vol] 6.9 g/dL Normal 6.0-8.0 [facility] Comment on above: Performed By: #### David VAZQUEZ, 65052-0 #### [facility] ([id number]) [address] [place] [address] Sodium [Moles/Vol] 141 mmol/L Normal 134-146 [facility] Comment on above: Performed By: #### David VAZQUEZ, 88913-8 #### [facility] ([id number]) [address] [place] [address] Urea nitrogen [Mass/Vol] 11 mg/dL Normal 5-27 [facility] Comment on above: Performed By: #### David VAZQUEZ, 56756-3 #### [facility] ([id number]) [address] [place] [address] Lipid 1996 panelon 4 Cholesterol [Mass/Vol] 206 mg/dL High 150-200 Pr [facility] Comment on above: Performed By: #### David VAZQUEZ, 67084-0 #### [facility] ([id number]) [address] [place] [address] Cholesterol in HDL [Mass/Vol] 50 mg/dL Normal >39 [facility] Comment on above: Result Comment: HDL <40 mg/dL - High Risk HDL > or = 40mg/dL- Desirable HDL >60 mg/dL - Negative Risk Performed By: #### David VAZQUEZ, 20637-5 #### [facility] ([id number]) [address] [place] [address] Cholesterol in LDL [Mass/Vol] 91 mg/dL Normal <130 [facility] Comment on above: Result Comment: LDL <100 mg/dL - Desirable LDL >160 mg/dL - High Risk Performed By: #### David VAZQUEZ, 11829-4 #### [facility] ([id number]) [address] [place] [address] Cholesterol in VLDL [Mass/Vol] 65 mg/dL High 0-30 [facility] Comment on above: Performed By: #### David VAZQUEZ, 69793-4 #### [facility] ([id number]) [address] [place] [address] CHOLESTEROL:HDL 4.1 Normal 1.0-5.0 [facility] Comment on above: Performed By: #### David VAZQUEZ, 39991-4 #### [facility] ([id number]) [address] [place] [address] Triglyceride [Mass/Vol] 326 mg/dL High 27-150 [facility] Comment on above: Performed By: #### David VAZQUEZ, 63938-2 #### [facility] ([id number]) [address] [place] [address] A1C HEMOGLOBINon 05-13-2023 HbA1c (Bld) [Mass fraction] 8.4 % [employer] Other Glucose - FINGER [facility]ICKon Glucose [Mass/Vol] 167 mg/dL [employer] Other HbA1c (Bld) [Mass fraction]o n 05-13-2023 A1C HEMOGLOBIN [employer] Other A1C HEMOGLOBINon 01-21-2023 HbA1c (Bld) [Mass fraction] 8.1 % [employer] Other Glucose - FINGER STICKon Glucose [Mass/Vol] 117 mg/dL [employer] Other HbA1c (Bld) [Mass fraction]o n 01-21-2023 A1C HEMOGLOBIN [employer] Other POINT OF CARE GLUCOSEon 09-13 Glucose [Mass/Vol] 185 mg/dL Critically high 74-106 [facility] Comment on above: Performed By: #### P OCGLUC #### [facility] [address] [address] [address] Payam Frazier XR hand RT min 3V*on 023 XR hand RT min 3V* [facility] [employer] Other XR hand RT min 3V* [facility] [employer] Other XR hand RT min 3V* [address] [place] [address] [employer] Other XR hand RT min 3V* [place] [address] [employer] Other XR hand RT min 3V* XRay Report [employer] Other XR hand RT min 3V* Signed [employer] Other XR hand RT min 3V* Patient: Gustavo Flores MR#: [id number] [employer] Other XR hand RT min 3V* 3326 [employer] Other XR hand RT min 3V* : 1955 Acct:[id number] [employer] Other XR hand RT min 3V* Age/Sex: 66 / F ADM Date: 07/22/22 [employer] Other XR hand RT min 3V* Loc: [facility] [place] Room: Type: [facility] [employer] Other XR hand RT min 3V* Attending Dr: Sara Adhikari MD [employer] Other XR hand RT min 3V* Copies to: Sara Adhikari MD [employer] Other XR hand RT min 3V* Ordering Provider: Sara Adhikari MD [employer] Other XR hand RT min 3V* Date of Service: 07/22/22 [employer] Other XR hand RT min 3V* XR/XR hand RT min 3V*: PAIN [employer] Other XR hand RT min 3V* 4 viewsright hand plain film [employer] Other XR hand RT min 3V* COMPARISON:08/01/19 [employer] Other XR hand RT min 3V* HISTORY:Right hand pain. Mass in the fourth digit [employer] Other XR hand RT min 3V* Moderate interphalangeal degeneration. No bony lesion. Adequate bony alignment. No fracture. No soft [employer] Other XR hand RT min 3V* tissue calcification. [employer] Other XR hand RT min 3V* XR/XR hand RT min 3V* [employer] Other XR hand RT min 3V* IMPRESSION:Similar degenerative change. [employer] Other XR hand RT min 3V* Impression dictated by: Roberto Pritchard M.D.07/22/2022 4:26 PM [place] [employer] Other XR hand RT min 3V* Dictation Location: RADIO--12 [place] [employer] Other XR hand RT min 3V* Transcribed By: ZEHRA 07/22/22 1626 [place] [employer] Other XR hand RT min 3V* Dictated By: Roberto Pritchard DO 07/22/22 1625 [place] [employer] Other XR hand RT min 3V* Signed By: [employer] Other XR hand RT min 3V* 07/22/[address] [place] [address] [employer] Other A1C HEMOGLOBINon 07-14-2022 HbA1c (Bld) [Mass fraction] 7.9 % [employer] Other Glucose - FINGER STICKon Glucose [Mass/Vol] 164 mg/dL [place] [employer] Other HbA1c (Bld) [Mass fraction]o n 07-14-2022 A1C HEMOGLOBIN [facility] Other A1C HEMOGLOBINon 03-11-2022 HbA1c (Bld) [Mass fraction] 8.0 % [employer] Other Albumin [Mass/volume] in Ser um or PlasmaOrdered By: Erica William on 03-11-2022 Albumin [Mass/Vol] 3.8 g/dL 3.2-5.5 [facility] Bilirubin.total [Mass/volume ] in Serum or PlasmaOrdered By: Tondra Mapus on 03-11-2022 Bilirubin [Mass/Vol] 0.5 mg/dL 0.3-1.2 [facility] Calcium [Mass/volume] in Ser um or PlasmaOrdered By: Tondra Mapus on 03-11-2022 Calcium [Mass/Vol] 9.2 mg/dL 8.2-10.2 [facility] Carbon dioxide, total [Moles /volume] in Serum or PlasmaOrdered By: Airam Thomas on 03-11-2022 CO2 [Moles/Vol] 24.7 mmol/L 22.0-30.0 [facility] Comprehensive Metabolic Pane henry 03-11-2022 Albumin [Mass/Vol] 3.117894 g/dL Normal 3.2-5.5 g/dL N [employer] Other ALT [Catalytic activity/Vol] 23 U/L Normal 10-60 U/L [employer] Other Bilirubin [Mass/Vol] 0.6342261 mg/dL Normal 0.3- 1.2 mg/dL [employer] Other Calcium [Mass/Vol] 9.5397530 mg/dL Normal 8.2-10 .2 mg/dL [employer] Other CO2 [Moles/Vol] 24.17876591 mmol/L Normal 22.0-3 0.0 mmol/L [employer] Other Creatinine [Mass/Vol] 0.25612857 mg/dL Normal 0. 44-1.03 mg/dL [employer] Other Potassium [Moles/Vol] 4.10493838 mmol/L Normal 3 .5-5.1 mmol/L [employer] Other Protein [Mass/Vol] 6.871070 g/dL Normal 6.1-7.9 g/dL N [employer] Other Comprehensive Metabolic Panel > 60 [employer] Other Comprehensive Metabolic Panel 2.5 g/dL [employer] Other Comprehensive Metabolic Pane lOrdered By: Airam Thomas on 03-11-2022 Albumin/Globulin [Mass ratio] 1.5 {ratio} [facility] ALP [Catalytic activity/Vol] 102 U/L 32-[address] [facility] AST [Catalytic activity/Vol] 20 U/L 10-[address] [facility] Chloride [Moles/Vol] 102 mmol/L 95-114 [facility] Glucose [Mass/Vol] 138 mg/dL 70-100 [facility] Comment on above: ADA recommended refe rence rangeRandom Glucose Reference Range is dependent on time and content of last meal. Glucose of more than 200 mg/dL in a nonstressed, ambulatory subject supports the diagnosis of Diabetes Mellitus. Sodium [Moles/Vol] 139 mmol/L 136-146 [facility] Urea nitrogen [Mass/Vol] 13 mg/dL 9- [facility] Creatinine and Glomerular fi ltration rate.predicted panel (S/P/Bld)Ordered By: Airam Thomas on 03-11-2022 Creatinine [Mass/Vol] 0.60 mg/dL 0.44-1.03 [facility] Estimated glomerular filtrat ion rate (GFR) non- AmericanOrdered By: Airam Thomas on 03-11-2022 GFR/1.73 sq M.predicted among non-blacks MDRD (S/P/Bld) [Vol rate/Area] > 60 mL/Min [facility] Globulin Calc (S) [Mass/Vol] Ordered By: Airam Thomas on 03-11-2022 Globulin (S) [Mass/Vol] 2.5 g/dL F [facility] Glucose - FINGER STICKon Glucose [Mass/Vol] 158 mg/dL [employer] Other HbA1c (Bld) [Mass fraction]o n 03-11-2022 A1C HEMOGLOBIN [facility] Other No Panel InformationOrdered By: Airam Thomas on 03-11-2022 Estimated GFR () > 60 mL/Min [facility] Comment on above: GFR estimated refere nce range: According to KDOQI guidelines, <60 ml/min/1.73m2 is sufficient to diagnose a patient with chronic kidney disease. Pharmacy Creatinine Clearance (Chem N/A [facility] Potassium [Moles/volume] in Serum or PlasmaOrdered By: Airam Thomas on 03-11-2022 Potassium [Moles/Vol] 4.1 mmol/L 3.5-5.1 [facility] Protein [Mass/volume] in Ser um or PlasmaOrdered By: Airam Thomas on 03-11-2022 Protein [Mass/Vol] 6.3 g/dL 6.1-7.9 [facility] Serum or plasma alanine ramsey otransferase measurement without P-5'-P (enzymatic activiOrdered By: Airam Thomas on 03-11-2022 ALT No additional P-5'-P [Catalytic activity/Vol] 23 U/L 10-60 [facility] Serum or plasma anion gap de terminationOrdered By: Airam Thomas on 03-11-2022 Anion gap [Moles/Vol] 16.4 mmol/L 6.0-15.0 [facility] POINT OF CARE GLUCOSEon 12-13 Glucose [Mass/Vol] 148 mg/dL Critically high 74-106 [facility] Comment on above: Performed By: #### P OCGLUC #### [facility] [address] [address] [address] Payam Frazier A1C HEMOGLOBINon 12-04-2021 HbA1c (Bld) [Mass fraction] 8.4 % [employer] Other Glucose - FINGER STICKon Glucose [Mass/Vol] 101 mg/dL [employer] Other HbA1c (Bld) [Mass fraction]o n 12-04-2021 A1C HEMOGLOBIN [employer] Other A1C HEMOGLOBINon 08-05-2021 HbA1c (Bld) [Mass fraction] 7.9 % [employer] Other Glucose - FINGER STICKon Glucose [Mass/Vol] 158 mg/dL [employer] Other HbA1c (Bld) [Mass fraction]o n 08-05-2021 A1C HEMOGLOBIN [employer] Other Vital Signs Date Time Vital Sign Value Performing Clinician Facility 12-12-2024 09:48-0400 Body height 162.6 cm Alexandria ORTEGA Work Phone: [facility] 12-12-2024 09:48-0400 Body mass index (BMI) [Ratio] 34.26 kg/m2 Alexandria Howard [employer] Work Phone: [facility] 12-12-2024 09:48-0400 Body weight 90.54 kg Alexandria Anita [employer] ARCHITECT[employer]ARDMASTER Work Phone: [facility] 12-12-2024 09:48-0400 Diastolic blood pressure 80 mm[Hg] Alexandria Anita [employer] ARCHITECT[employer]YARDMASTER Work Phone: [facility] 12-12-2024 09:48-0400 Systolic blood pressure 130 mm[Hg] Alexandria Howard [employer] ARCHITECT[employer]YARDMASTER Work Phone: [facility] 08-10-2024 13:24-0500 Body height 167.6 cm Elen Yergler [employer]TEGRATION ARCHITECT[employer]YARDMASTER Work Phone: [facility] 08-10-2024 13:24-0500 Body mass index (BMI) [Ratio] 32.44 kg/m2 Elen Yergler [employer]GR[employer] ARCHITECT[employer]YARDMASTER Work Phone: [facility] 08-10-2024 13:24-0500 Body weight 91.17 kg Elen Yergler [employer]GRATION ARCHITECT[employer]YARDMASTER Work Phone: [facility] 08-10-2024 13:24-0500 Diastolic blood pressure 68 mm[Hg] Elen Yergler [employer]TEGRATION ARCHITECT-YARDMASTER Work Phone: [facility] 08-10-2024 13:24-0500 Heart rate 69 /min Elen Yergler [employer]TEGRATION ARCHITECT[employer]YARDMASTER Work Phone: [facility] 08-10-2024 13:24-0500 Systolic blood pressure 108 mm[Hg] Elen Yergler [employer]TEGRATION ARCHITECT-YARDMASTER Work Phone: [facility] 07-18-2024 10:10-0500 Body height 162.56 cm [facility] 07-18-2024 10:10-0500 Body mass index (BMI) [Ratio] 34.4 kg/m2 [facility] 07-18-2024 10:10-0500 Body weight 90.94 kg [facility] 07-18-2024 10:10-0500 Diastolic blood pressure 73 mm[Hg] [facility] 07-18-2024 10:10-0500 Heart rate 63 /min [facility] 07-18-2024 10:10-0500 Respiratory rate 18 /min [facility] 07-18-2024 10:10-0500 SaO2% (BldA) [Mass fraction] 95 % [facility] 07-18-2024 10:10-0500 Systolic blood pressure 129 mm[Hg] [facility] 02-23-2024 10:21-0400 Diastolic blood pressure 71 mm[Hg] [facility] 02-23-2024 10:21-0400 Systolic blood pressure 139 mm[Hg] [facility] 02-23-2024 10:13-0400 Body height 162.56 cm [facility] 02-23-2024 10:13-0400 Body mass index (BMI) [Ratio] 36.4 kg/m2 [facility] 02-23-2024 10:13-0400 Body weight 96.3 kg [facility] 02-23-2024 10:13-0400 Heart rate 68 /min [facility] 02-23-2024 10:13-0400 Respiratory rate 18 /min [facility] 02-23-2024 10:13-0400 SaO2% (BldA) [Mass fraction] 98 % [facility] 10-04-2023 10:32-0400 Body height 162.56 cm [facility] 10-04-2023 10:32-0400 Body mass index (BMI) [Ratio] 36.6 kg/m2 [facility] 10-04-2023 10:32-0400 Body weight 96.61 kg [facility] 10-04-2023 10:32-0400 Diastolic blood pressure 80 mm[Hg] [facility] 10-04-2023 10:32-0400 Heart rate 60 /min [facility] 10-04-2023 10:32-0400 Respiratory rate 18 /min [facility] 10-04-2023 10:32-0400 SaO2% (BldA) [Mass fraction] 97 % [facility] 10-04-2023 10:32-0400 Systolic blood pressure 133 mm[Hg] [facility] 05-13-2023 10:15-0500 Body height 162.56 cm Tondra Mapus Other [facility] 05-13-2023 10:15-0500 Body mass index (BMI) [Ratio] 37.95 kg/m2 Tondra Mapus Other [employer] Other 05-13-2023 10:15-0500 Body weight 100.29 kg Tondra Mapus Other [employer] Other 05-13-2023 10:15-0500 Body weight 100.28 kg [facility] 05-13-2023 10:15-0500 Diastolic blood pressure 77 mm[Hg] Tondra Mapus Other [facility] 05-13-2023 10:15-0500 Respiratory rate 18 /min Tondra Mapus Other [employer] Other 05-13-2023 10:15-0500 SaO2% (BldA) [Mass fraction] 95 % Tondra Mapus Other [employer] Other 05-13-2023 10:15-0500 Systolic blood pressure 147 mm[Hg] Tondra Mapus Other [facility] 01-21-2023 14:45-0400 Body height 162.56 cm Tondra Mapus Other [employer] Other 01-21-2023 14:45-0400 Body mass index (BMI) [Ratio] 37.35 kg/m2 Tondra Mapus Other [employer] Other 01-21-2023 14:45-0400 Body weight 98.7 kg Tondra Mapus Other [employer] Other 01-21-2023 14:45-0400 Diastolic blood pressure 80 mm[Hg] Tondra Mapus Other [employer] Other 01-21-2023 14:45-0400 Respiratory rate 18 /min Tondra Mapus Other [employer] Other 01-21-2023 14:45-0400 SaO2% (BldA) [Mass fraction] 96 % Tondra Mapus Other [employer] Other 01-21-2023 14:45-0400 Systolic blood pressure 124 mm[Hg] Tondra Mapus Other [employer] Other 07-22-2022 15:30-0500 Body height 162.56 cm [employer] Other [employer] Other 07-22-2022 15:30-0500 Body mass index (BMI) [Ratio] 38.33 kg/m2 Sara [employer] Other [employer] Other 07-22-2022 15:30-0500 Body weight 101.29 kg Sara [employer] Other [employer] Other 07-14-2022 12:00-0500 Body height 162.56 cm Tondra Mapus Other [employer] Other 07-14-2022 12:00-0500 Body mass index (BMI) [Ratio] 38.33 kg/m2 Tondra Mapus Other [employer] Other 07-14-2022 12:00-0500 Body weight 101.29 kg Tondra Mapus Other [employer] Other 07-14-2022 12:00-0500 Diastolic blood pressure 76 mm[Hg] Tondra Mapus Other [employer] Other 07-14-2022 12:00-0500 Respiratory rate 18 /min Tondra Mapus Other [employer] Other 07-14-2022 12:00-0500 SaO2% (BldA) [Mass fraction] 98 % Tondra Mapus Other [employer] Other 07-14-2022 12:00-0500 Systolic blood pressure 144 mm[Hg] Tondra Mapus Other [employer] Other 03-11-2022 12:00-0400 Body height 162.56 cm Tondra Mapus Other [employer] Other 03-11-2022 12:00-0400 Body mass index (BMI) [Ratio] 38.93 kg/m2 Tondra Mapus Other [employer] Other 03-11-2022 12:00-0400 Body weight 102.88 kg Tondra Mapus Other [employer] Other 03-11-2022 12:00-0400 Diastolic blood pressure 67 mm[Hg] Tondra Mapus Other [employer] Other 03-11-2022 12:00-0400 Respiratory rate 18 /min Tondra Mapus Other [employer] Other 03-11-2022 12:00-0400 SaO2% (BldA) [Mass fraction] 98 % Tondra Mapus Other [employer] Other 03-11-2022 12:00-0400 Systolic blood pressure 106 mm[Hg] Tondra Mapus Other [employer] Other 12-04-2021 11:15-0400 Body height 162.56 cm Tondra Mapus Other [employer] Other 12-04-2021 11:15-0400 Body mass index (BMI) [Ratio] 38.79 kg/m2 Tondra Mapus Other [employer] Other 12-04-2021 11:15-0400 Body weight 102.51 kg Tondra Mapus Other [employer] Other 12-04-2021 11:15-0400 Diastolic blood pressure 80 mm[Hg] Tondra Mapus Other [employer] Other 12-04-2021 11:15-0400 Respiratory rate 20 /min Tondra Mapus Other [employer] Other 12-04-2021 11:15-0400 SaO2% (BldA) [Mass fraction] 96 % Tondra Mapus Other [employer] Other 12-04-2021 11:15-0400 Systolic blood pressure 119 mm[Hg] Tondra Mapus Other [employer] Other 08-05-2021 10:45-0500 Body height 162.56 cm Tondra Mapus Other [employer] Other 08-05-2021 10:45-0500 Body mass index (BMI) [Ratio] 39.3 kg/m2 Tondra Mapus Other [employer] Other 08-05-2021 10:45-0500 Body weight 103.87 kg Tondra Mapus Other [employer] Other 08-05-2021 10:45-0500 Diastolic blood pressure 81 mm[Hg] Tondra Mapus Other [employer] Other 08-05-2021 10:45-0500 Respiratory rate 20 /min Tondra Mapus Other [employer] Other 08-05-2021 10:45-0500 SaO2% (BldA) [Mass fraction] 95 % Tondra Mapus Other [employer] Other 08-05-2021 10:45-0500 Systolic blood pressure 124 mm[Hg] Tondra Mapus Other [employer] Other Encounters Encounter Date Encounter Type Care Provider Facility Start: 02-22-2025 ambulatory ALEXANDRIA HOWARD [facility] Start: 01-05-2025 End: 01-08-2025 [facility] Comment on above: Anemia, unspecified Start: 12-18-2024 End: 12-18-2024 Orders Only Alexandria Howard ENTERPRISE INTEGRATION ARCHITECT-YARDMASTER Work Phone: [facility] Start: 12-13-2024 End: 12-18-2024 Refill Alexandria Howard ENTERPRISE INTEGRATION ARCHITECT-YARDMASTER Work Phone: [facility] Start: 12-12-2024 End: 12-13-2024 Transcribe Orders Qiana Chiu YARDMASTER Work Phone: Referring Physician Comment on above: Lumbar foraminal vince nosis (Primary Dx) Start: 12-12-2024 End: 12-12-2024 Patient encounter procedure Alexandria Howard ENTERPRISE INTEGRATION ARCHITECT-YARDMASTER [facility] Comment on above: Medicare annual well ness visit, subsequent (Primary Dx); Depression screening; Encounter for screening mammogram for malignant neoplasm of breast Start: 11-09-2024 End: 11-09-2024 Orders Only Alexandria Howard ENTERPRISE INTEGRATION ARCHITECT-YARDMASTER Work Phone: [facility] Start: 10-17-2024 End: 10-17-2024 Chart abstracting None (Historical) Neurology Start: 09-29-2024 End: 11-07-2024 Orders Only Elen Archer ENTERPRISE INTEGRATION ARCHITECT-YARDMASTER Work Phone: [facility] Comment on above: Spinal stenosis of l umbar region with neurogenic claudication (Primary Dx); Spondylolisthesis of lumbar region; Chronic bilateral low back pain with bilateral sciatica Start: 09-19-2024 ambulatory ALEXANDRIA HOWARD [facility] Start: 09-06-2024 End: 09-06-2024 Orders Only Alexandria Howard ENTERPRISE INTEGRATION ARCHITECT-YARDMASTER Work Phone: [facility] Start: 09-04-2024 End: 09-06-2024 Refill Aaliyah Arabella [employer] [facility] Start: 08-17-2024 End: 08-17-2024 ambulatory [facility] Start: 08-10-2024 End: 08-10-2024 Office outpatient new 45 minutes Elen Archer ENTERPRISE INTEGRATION ARCHITECT-YARDMASTER Work Phone: [facility] Comment on above: Spinal stenosis of l umbar region with neurogenic claudication (Primary Dx); Spondylolisthesis of lumbar region; Lumbar facet arthropathy; Chronic bilateral low back pain with bilateral sciatica Start: 08-10-2024 End: 08-10-2024 ambulatory ELEN M [facility] Start: 08-09-2024 End: 08-09-2024 ambulatory [facility] Start: 07-18-2024 End: 07-18-2024 ambulatory [facility] Work Phone: Start: 07-18-2024 End: 07-18-2024 Patient encounter procedure [facility] Work Phone: Start: 07-17-2024 End: 07-17-2024 Refill [facility] Start: 07-13-2024 End: 07-13-2024 ambulatory [facility] Start: 06-16-2024 End: 06-19-2024 Refill [facility] Warren [facility] Comment on above: Anemia, unspecified Start: 06-05-2024 ambulatory [facility] Start: 06-01-2024 ambulatory [facility] Start: 05-29-2024 End: 05-29-2024 ambulatory [facility] Start: 05-29-2024 End: 05-29-2024 ambulatory [facility] Start: 04-13-2024 End: 04-13-2024 ambulatory [facility] Start: 04-13-2024 End: 04-13-2024 [facility] Start: 02-23-2024 End: 02-23-2024 ambulatory [facility] Work Phone: Start: 02-23-2024 End: 02-23-2024 Patient encounter procedure [facility] Work Phone: Start: 10-04-2023 End: 10-04-2023 ambulatory [facility] Work Phone: Start: 10-04-2023 End: 10-04-2023 Patient encounter procedure [facility] Phys[facility] Work Phone: Start: 09-27-2023 End: 09-28-2023 ambulatory Dipakus Jae Last MD Facility:[facility] Start: 05-13-2023 (DM) Diabetes Tondra Raghavendraus [facility] Start: 05-13-2023 End: 05-14-2023 ambulatory NON STAFF [employer] [facility] Other Start: 05-13-2023 End: 05-13-2023 Discharged [facility] Work Phone: Start: 05-13-2023 End: 05-13-2023 Patient encounter procedure [facility] Physician [facility] Work Phone: Start: 03-03-2023 End: 03-03-2023 ambulatory Tondra Mapus Other [employer] Other Start: 03-03-2023 Telephone encounter Tondra Mapus [facility] Start: 01-26-2023 End: 01-26-2023 ambulatory Tondra Mapus Other [employer] Other Start: 01-26-2023 Telephone encounter Tondra Mapus [facility] Start: 01-22-2023 End: 01-22-2023 ambulatory Tondra Mapus Other [employer] Other Start: 01-22-2023 Telephone encounter Tondra Mapus [facility] Start: 01-21-2023 (DM) Diabetes Tondra Mapus [facility] Start: 01-21-2023 End: 01-21-2023 ambulatory Tondra Mapus Other [employer] Other Start: 10-23-2022 End: 10-24-2022 ambulatory NARENDRANATH LAKSHMIPATHY . Facility:[facility] Start: 10-13-2022 ambulatory NARENDRANATH LAKSHMIPATHY . Facility:[facility] Start: 10-06-2022 End: 10-06-2022 ambulatory NARENDRANATH LAKSHMIPATHY . Facility:[facility] Start: 09-29-2022 End: 09-30-2022 ambulatory NARENDRANATH LAKSHMIPATHY . Facility:[facility] Start: 09-24-2022 End: 09-25-[address] YOLANDA GUZMAN Facility:[facility] Start: 07-22-2022 End: 07-22-2022 ambulatory Sara Adhikari Other [employer] Other Start: 07-22-2022 Office outpatient visit 25 minutes Sara Adhikari [facility] Start: 07-14-2022 (DM) Diabetes Tondra Mapus [facility] Start: 07-14-2022 End: 07-14-2022 ambulatory Tondra Mapus Other [employer] Other Start: 06-25-2022 End: 06-26-[address] OSIRIS KELLEY . Facility: Start: 05-18-2022 End: 05-18-2022 ambulatory Tondra Mapus Other [employer] Other Start: 05-18-2022 Telephone encounter Tondra Mapus [facility] Start: 05-04-2022 End: 05-04-2022 ambulatory Tondra Mapus Other [employer] Other Start: 05-04-2022 Telephone encounter Tondra Mapus [facility] Start: 04-27-2022 End: 04-27-2022 ambulatory Tondra Mapus Other [employer] Other Start: 04-27-2022 Telephone encounter Tondra Mapus [facility] Start: 03-11-2022 (DM) Diabetes Tondra Mapus [facility] Start: 03-11-2022 End: 03-11-2022 ambulatory Tondra Mapus Other [employer] Other Start: 03-11-2022 Telephone encounter Tondra Mapus [facility] Start: 01-22-2022 End: 01-23-[address] OSIRIS KELLEY . Facility:[facility] Start: 01-06-2022 End: 01-06-[address] OSIRIS KELLEY . Facility: Start: 12-04-2021 (DM) Diabetes Tondra Mapus [facility] Start: 12-04-2021 End: 12-04-2021 ambulatory Tondra Mapus Other [employer] Other Start: 11-20-2021 End: 11-21-[address] OSIRIS KELLEY . Facility: Start: 08-05-2021 (DM) Diabetes Tondra Mapus [facility] Start: 08-05-2021 End: 08-05-2021 ambulatory Tondra Mapus Other [employer] Other Start: 08-05-2021 Telephone encounter Tondra Mapus [facility] Start: 07-16-2021 End: 07-16-2021 ambulatory Tondra Mapus Other [employer] Other Start: 07-16-2021 Telephone encounter Tondra Mapus [facility] Start: 07-15-2021 End: 07-15-2021 ambulatory Tondra Mapus Other [employer] Other Start: 07-15-2021 Telephone encounter Airam Sr [facility] Procedures Date Procedure Procedure Detail Performing Clinician Start: 12-12-2024 Adult depression screening assessment Alexandria Markskenji ORTEGA Work Phone: Start: 07-13-2024 Adult depression screening assessment Nanette Warren [employer] Start: 04-13-2024 Adult depression screening assessment Nanette Warren [employer] Start: 04-13-2024 Lipid 1996 panel - Serum or Plasma None (Historical) Start: 04-21-2023 Mammography Nanette Rodríguezope r [employer] Start: 04-09-2022 Diabetic retinal eye exam Nanette Warren [employer] Start: 04-10-2013 History of renal transplant History of kidney transplant Nanette Warren [employer] History of renal transplant Airam Thomas Other History of renal transplant History of transplantation, renal Comment on above: right kidney, 2013 Plan of Treatment Date Care Activity Detail Author Start: 2029 RSV Vaccine (1 - 1-d ose 75+ series) RSV Vaccine (1 - 1-dose 75+ series) [facility] Start: 04-13-2029 Lipid panel Lipid Screening [facility] Start: 08-18-2027 Diabetes Screening Diabetes Screenin g [facility] Start: 12-13-2025 End: 12-13-2025 Patient encounter procedure 12/13/2025 10:00 AM EDT Office Visit [facility] [address] [place] [address] [facility] Start: 12-12-2025 Adult BMI Screening Adult BMI Screen ing [facility] Start: 12-12-2025 Depression Screening Depression Scre ening [facility] Start: 12-12-2025 Fall Risk Screening [facility] Start: 12-12-2025 Medicare Annual Wellness Visit Medicare Annual Wellness Visit [facility] Start: 12-12-2025 Tobacco Screening Tobacco Screening [facility] Start: 08-10-2025 Adult BMI Follow Up Plan Adult BMI Follow Up Plan [facility] Start: 08-10-2025 Adult BMI Screening Adult [facility] Start: 08-10-2025 Tobacco Screening Tobacco Screening [facility] Start: 07-13-2025 Adult BMI Screening Adult BMI Screen ing [facility] Start: 07-13-2025 Depression Screening Depression Scre ening [facility] Start: 07-13-2025 Fall Risk Screening Fall Risk Screen ing [facility] Start: 07-13-2025 Tobacco Screening Tobacco Screening [facility] Start: 04-13-2025 Adult BMI Screening Adult BMI Screen ing [facility] Start: 04-13-2025 Depression Screening Depression Scre [facility] Start: 04-13-2025 Fall Risk Screening Fall Risk Screen ing [facility] Start: 04-13-2025 Tobacco Screening Tobacco Screening [facility] Start: 02-12-2025 Influenza vaccination [facility] Start: 12-25-2024 End: 12-25-2025 DBT Breast - bilateral screening Mammography screening bilateral with CAD Imaging Routine Encounter for screening mammogram for malignant neoplasm of breast Expected: 12/25/2024, Expires: 12/25/2025 [employer] Work Phone: Comment on above: Expected: 12/25/2024 , Expires: 12/25/2025 Start: 10-05-2024 End: 10-05-2024 Patient encounter procedure 10/05/2024 10:40 AM EDT [facility] [address] [place] [address] Alexandria Howard, ENTERPRISE INTEGRATION ARCHITECT-YARDMASTER [address] [place] [address] [facility] Start: 08-10-2024 End: 08-10-2025 MR Lumbar spine WO contrast MR lumbar spine without contrast Imaging Routine Spinal stenosis of lumbar region with neurogenic claudication Spondylolisthesis of lumbar region Lumbar facet arthropathy Chronic bilateral low back pain with bilateral sciatica Expected: 08/10/2024, Expires: 08/10/2025 [employer] Work Phone: Comment on above: Expected: 08/10/2024 , Expires: 08/10/2025 Start: 08-10-2024 End: 08-10-2024 Patient encounter procedure 08/10/2024 1:30 PM EST Office Visit [facility] [address] [place] [phone] Elen Archer, ENTERPRISE INTEGRATION ARCHITECT-YARDMASTER [address] [place] [phone] [facility] Start: 07-18-2024 Patient referral [facility] Work Phone: Start: 06-29-2024 End: 06-29-2024 Patient encounter procedure 06/29/2024 11:[address] [facility] [address] [place] [phone] Elen Archer, ENTERPRISE INTEGRATION ARCHITECT-YARDMASTER [address] [place] [phone] [facility] Start: 06-14-2024 Advance Directive Discussion Advance Directive Discussion [facility] Start: 04-21-2024 Screening for malign ant neoplasm of breast [facility] Start: 02-13-2024 Covid-19 Vaccine ( season) Covid-19 Vaccine ( season) [facility] Start: 11-04-2023 Medicare Annual Wellness Visit Medicare Annual Wellness Visit [facility] Start: 04-09-2023 Glaucoma screening Diabetic Op hthalmology Exam [facility] Start: 09-23-2020 Pneumococcal Vaccine : 50+ (3 of 3 - PCV20 or PCV21) Pneumococcal Vaccine: 50+ (3 of 3 - PCV20 or PCV21) [facility] Start: 07-16-2014 DTaP,Tdap and Td Vaccines (2 - Tdap) DTaP,Tdap and Td Vaccines (2 - Tdap) [facility] Start: 07-16-2014 Urine microalbumin profile DTaP,Tdap,Td Vaccine (2 - Tdap) [facility] Start: 2004 Shingrix Vaccine (1 of 2) Shingrix Vaccine (1 of 2) [facility] Start: 09-17-1999 Screening for malign ant neoplasm of colon [facility] Start: 1973 Administration of varicella zoster vaccine Zoster (Shingles) Vaccine (1 of 2) [facility] Start: 1972 Adult BMI Follow Up Plan Adult BMI Follow Up Plan [facility] Start: 1972 Anxiety Screening Anxiety Screening [facility] Start: 1972 Depression Screening Depression Scre ening [facility] Start: 1972 Diabetic foot examination Diabetic Foot Exam [facility] Start: 1972 Hepatitis C screening Hepatitis C Sc joey [facility] Comprehensive metabo lic 1999 panel - Serum or Plasma [facility] Comprehensive metabo lic 1999 panel - Serum or Plasma [facility] Patient referral [facility] Work Phone: [facility] Immunizations Immunization Date Immunization Notes Care Provider Fa cili 04-13-2024 Seasonal trivalent influenza vaccine, adjuvanted, preservative free Nanette Warren [facility] 04-13-2024 influenza virus vaccine, unspecified formulation Elen Archer APRN-YARDMASTER Work Phone: [facility] 04-06-2023 Influenza Vaccine, Quadrivalent, Adjuvanted Nanette Warren [facility] 10-07-2020 COVID-19, mRNA, LNP- S, PF, 100mcg/0.5mL Dose Nanette Warren [facility] 09-06-2020 COVID-19 Vaccine Moderna - Documentation Purposes Only Tondra Mapus Other [facility] 08-09-2020 COVID-19 Vaccine Moderna - Documentation Purposes Only Tondra Mapus Other [facility] 04-24-2020 influenza virus vaccine, unspecified formulation [facility] 04-24-2020 Influenza, High-dose , Quadrivalent Nanette Warren [facility] 04-24-2020 influenza, high dose seasonal, preservative-free Tondra Mapus Other [facility] Other 05-28-2017 Influenza, injectabl e, Madin Iris Canine Kidney, preservative free, quadrivalent Nanette Warren [facility] 04-10-2016 influenza, seasonal, injectable, preservative free Nanette Warren [facility] 09-24-2015 pneumococcal conjuga te vaccine, 13 valent Nanette Warren [facility] 04-14-2015 influenza, seasonal, injectable Nanette Warren [facility] 04-19-2013 pneumococcal polysaccharide vaccine, 23 valent Nanette Warren [facility] 02-10-2012 pneumococcal polysaccharide vaccine, 23 valaga Warren [facility] 07-16-2004 DTaP-Haemophilus influenzae type b conjugate vaccine Nanette Warren [facility] Payers Date Payer Category Payer Unknown 2021 Medicare (Managed Care) [facility] [id number] 2020 Medicare HMO [employer] MEDICARE [id number] 2017 Self-pay [id number] Private Health Insurance [id number] 1959 Medicare [id number] 1954 Unknown [id number] 2.16.840.1.523965.3.579. 2.593 1954 Unknown [id number] 2.16.840.1.830401.3.579. 2.593 1954 Unknown [id number] 2.16.840.1.490876.3.579. 2.593 1954 Unknown [id number] 2.16.840.1.226481.3.579. 2.593 1954 Unknown [id number] 2.16.840.1.082206.3.579. 2.593 1954 Unknown [id number] 2.16.840.1.625246.3.579. 2.593 1954 Unknown [id number] 2.16.840.1.408863.3.579. 2.593 1954 Unknown [id number] 2.16.840.1.283629.3.579. 2.593 1954 Unknown [id number] 2.16.840.1.020913.3.579. 2.593 1954 Unknown [id number] 2.16.840.1.533989.3.579. 2.196 1954 Unknown [id number] 2.16.840.1.605254.3.579. 2.1286 1954 Unknown [id number] 2.16.840.1.943826.3.579. 2.1285 1954 Unknown [id number] 2.16.840.1.431216.3.579. 2.1285 1954 Unknown [id number] 2.16.840.1.481916.3.579. 2.1285 1954 Unknown [id number] 2.16.840.1.401011.3.579. 2.1285 1954 Unknown [id number] 2.16.840.1.573946.3.579. 2.1285 1954 Unknown [id number] 2.16.840.1.715697.3.579. 2.1285 1954 Unknown [id number] 2.16.840.1.657069.3.579. 2.1285 1954 Unknown [id number] 2.16.840.1.260744.3.579. 2.128 1954 Unknown [id number] 2.16.840.1.696418.3.579. 2.1285 1954 Unknown [id number] 2.16.840.1.943712.3.579. 2.128 1954 Unknown [id number] 2.16.840.1.834912.3.579. 2.1286 Unknown [id number] 2.16.840.1.763379.3.579. 2.531 Social History Date Type Detail Facility Unknown if ever smoked [employer] Other Start: 11-03-2022 End: 12-12-2024 Sex Assigned At [facility] Start: 08-21-2019 End: 07-14-2023 Tobacco smoking status NHIS Never smoked tobacco (finding) [facility] Start: 1955 Sex Assigned At Female [facility] Start: 07-14-2023 Tobacco use and exposure Smokeless tobacco non-user [facility] Start: 04-13-2024 End: 12-12-2024 Alcoholic beverage intake Lifetime non-drinker (finding) [facility] Start: 11-03-2022 End: 12-12-[address]24 [address] [facility] Do you belong to any clubs or organizations such as muslim groups, unions, fraternal or athletic groups, or school groups? No [facility] Are you now , , , , never or living with a partner? [facility] Frequency of Alcohol Consumption Never [facility] Do you feel stress - tense, restless, nervous, or anxious, or unable to sleep at night because your mind is troubled all the time - these days [OSQ] To some extent [facility] Start: 1955 Sex assigned at Not on file [facility] Start: 01-17-2015 End: 07-18-2024 Sex Female (finding) [facility] How often to you hav e a drink containing alcohol? Never [facility] Do you feel stress - tense, restless, nervous, or anxious, or unable to sleep at night because your mind is troubled all the time - these days [OSQ] Only a little [facility] Medical Equipment Procedure Code Equipment Code Equipment Origin al Text Equipment Identifier Dates blood sugar diagnostic (FreeStyle Precision Harish Strips) Start: 10-04-2023 blood sugar diagnostic (FreeStyle Precision Harish Strips) Start: 10-04-2023 blood sugar diagnostic (FreeStyle Precision Harish Strips) Start: 10-04-2023 Functional Status Date Assessment Result Facility 12-12-2024 Total score [AUDIT-C] 0 12/13/19 25 10:04 AM Edyta Wan [facility] Clinical Notes 04-14-2020 to 12-12-2024 SHANNON Pearl - 12/12/2024 9:40 AM Misael Forbes PA-C - 10/17/2024 3:35 PM Alfredo Victoria - 10/17/2024 3:20 PM Harvinder Archer, ENTERPRISE INTEGRATION ARCHITECT-YARDMASTER - 08/10/2024 1:30 PM EST Note Date & Type Note Facility 12-12-2024 History of Present illness Narrative Subjective SUBJECTIVE: Patient ID: Gustavo Flores is a 69 y.o. female who presents for a Medicare Annual Wellness exam. HPI Patient is here for a Medicare wellness with RN today. The following portions of the patient's history were reviewed and updated as appropriate: allergies, current medications, past family history, past medical history, past social history, past surgical history and problem list. AWV FLOWSHEET : Lifestyle Assessment Do you smoke or use smokeless tobacco?: No If you smoke or use smokeless tobacco, are you ready to quit?: NA Are you exposed to secondhand smoke?: No On average, how many drinks of alcohol do you consume in a week?: None Do you exercise for 30 or more minutes on average at least 3 days a week?: Sometimes Do you have any tooth, denture, or oral problems?: No Do you snore or has anyone told you that you snore?: No Do you try to eat a balanced diet?: Yes Do you experience leakage of urine, also known as urinary incontinence?: Never Do you have difficulty bathing?: No Do you have difficulty dressing?: No Do you have difficulty grooming?: No Do you have difficulty eating?: No Do you have difficulty getting out of a chair?: (!) Yes Do you have difficulty walking?: (!) Yes Do you have difficulty using the toilet?: No Do you have difficulty doing laundry?: No Do you have difficulty with housekeeping?: No Do you have difficulty preparing a meal?: No Do you have difficulty shopping?: No Do you have difficulty using transportation?: No Do you have difficulty paying bills?: No Do you have difficulty managing finances?: No Fall Risk Fall Risk Assessment Completed?: Yes Have you fallen in the past year?: No Are you worried about falling?: (!) Yes Do you feel unsteady when standing or walking?: (!) Yes Risk Stratification: Moderate Risk Depression Screening Little interest or pleasure in doing things: Not at all Feeling down, depressed, or hopeless: Not at all Trouble falling or staying asleep, or sleeping too much: (!) Several days Feeling tired or having little energy: (!) Several days Poor appetite or overeating: Not at all Feeling bad about yourself - or that you are a failure or have let yourself or your family down: Not at all Trouble concentrating on things, such as reading the newspaper or watching television: Not at all Moving or speaking so slowly that other people could have noticed. Or the opposite - being so fidgety or restless that you have been moving around a lot more than usual: Not at all Thoughts that you would be better off , or of hurting yourself in some way: Not at all PEG Scale What number best describes your pain on average in the past week?: 8 Safety Assessment Do you have throw rugs on the floor?: No Do you feel safe at your home?: Yes Do you feel unsteady when walking?: (!) Yes Are you having difficulty with driving?: No Do you have trouble seeing?: No Do you use a bath bar/seat?: No Do you use a raised toilet seat?: No Do you use a cane?: No Do you use a walker?: No Do you use a wheelchair?: No Hearing Assessment Do you strain or struggle to hear/understand conversations?: No Do you have trouble hearing the television or radio when others do not?: No Does your family ever voice concerns about your hearing?: No Do you wear hearing aid/s?: No Personal Health During the past 4 weeks, how would you rate your overall health?: (!) Fair Do you understand how to take all of your medications?: Yes How confident are you that you can control and manage most of your health problems?: Very confident In the past 12 months, how many times have you been hospitalized?: None End of Life Planning Do you have a living will?: (!) No Do you have a durable power of manager of customer billing?: (!) No Cognitive Screening Do you have trouble remembering or recalling facts or events?: No Do family members or caregivers report that you have difficulty remembering things?: No Clock Drawing Test: 6CIT memory screening - 2 errors REVIEW OF SYSTEMS: Review of Systems Objective PHYSICAL EXAMINATION: Vitals: 12/12/24 0948 BP: 130/80 Weight: 90.5 kg (199 lb 9.6 oz) Height: 162.6 cm (5' 4 ) Physical Exam Assessment/Plan ASSESSMENT/PLAN Gustavo was seen today for maw. Diagnoses and all orders for this visit: Medicare annual wellness visit, subsequent Depression screening Encounter for screening mammogram for malignant neoplasm of breast - Mammography screening bilateral with CAD; Future Return in about 1 year (around 12/12/2025). Reviewed flowsheets completed by RN. Health maintenance and immunizations reviewed. Depression screening was neg today. Mammogram ordered and recommended by RN. Pt needs end of life planning which will be recommended by provider at upcoming appt. She is a moderate fall risk and we will recommend PT for strengthening to prevent falls and Handicap parking placard if not already in place as well as possible assistive devices. Request sent to staff to set up appt w/ provider before end of year. SHANNON Pearl 12/25/24 1030 documented in this encounter [employer] 10-17-2024 Note HNO ID: [id number] Author: MISAEL LINDO PA-C Service: ? Author Type: Physician Volunteer Services Supervisor Type: Progress Notes Filed: 01/16/2025 16:02 Note Text: C/o low back pain, bilateral leg pain, numbness / tingling, weakness, difficulty walking. CMT: -PT -Injection -Muscle Relaxants -Gabapentin -Oxycodone Lumbar X-Ray REPORT: Lumbar vertebral body heights are preserved. Severe diffuse facet arthropathy. Anterolisthesis of L3 on L4 measuring 5 mm and L4 on L5 measuring 6 mm. Multilevel disc related degenerative disease with disc height most prominent at L2-3 and L3-4. No pathologic change in alignment between flexion and extension. IMPRESSION: * Multilevel disc and facet related degenerative disease. Lumbar MRI REPORT: Moderate to severe canal stenosis at L2-L3, L3-L4, and L4-L5 Recommend New Patient appt with first available surgeon. Misael Lindo PA-C [facility] 10-17-2024 History of Present illness Narrative C/o low back pain, bilateral leg pain, numbness / tingling, weakness, difficulty walking. CMT: -PT -Injection -Muscle Relaxants -Gabapentin -Oxycodone Lumbar X-Ray REPORT: Lumbar vertebral body heights are preserved. Severe diffuse facet arthropathy. Anterolisthesis of L3 on L4 measuring 5 mm and L4 on L5 measuring 6 mm. Multilevel disc related degenerative disease with disc height most prominent at L2-3 and L3-4. No pathologic change in alignment between flexion and extension. IMPRESSION: * Multilevel disc and facet related degenerative disease. Lumbar MRI REPORT: Awaiting download. Misael Lindo PA-C Patient name: Gustavo Flores Are you being referred by a [place] for Spine Health Provider or Pain Management Provider at [facility]? No If answer is YES please [...] does not need to be completed If YES, please ask for the name/address of the facility where the MRI/CT/myelogram was completed: [facility] [address] [place] [address] [facility] - Radiology [address] [place] [address] MRI/CT/myelogram viewable in Epic: No If not, please provide [phone] to fax in imaging reports for review. Also, please inform patient to hand carry imaging disc to appointment. XR (spine) within 12 months: No If YES, please ask for the name/address of the facility where the XR was completed: Dr. Nogueira's patients: Have you had previous EMG/Nerve Conduction Study, Ultrasound, or MRI for these same symptoms? If YES, please ask for the name/address of the facility where they were completed: Requested provider (First and Last name): unknown Are you interested in a virtual visit if offered? 1. Where are you having symptoms related to this visit? Lumbar Spine Leg pain, Numbness, Tingling, weakness Bilateral Back pain Yes Leg pain Yes bilateral Arm pain No Neck pain No 2. Are you having any of the following symptoms: Difficulty walking Yes balance issue Numbness Yes legs, feet Weakness Yes Trouble using your hands? No 3. Have you had any injections or physical therapy in the last 12 months? Yes If YES then please ask for the name/address of the facility where the injections and/or physical therapy was completed Injection: [facility] [address] [id number] PT: [facility] [address] [id number] Have you tried any other kinds of non-surgical treatments in the last 12 months? (For example: NSAIDS, muscle relaxants, analgesics, oral steroids, Chiropractor, Acupuncture): Baclofen, Gabapentin 4. Are you currently taking daily prescribed narcotic medications for your current symptoms (For example Oxycodone, Hydrocodone, Tramadol, Morphine, Other)? Yes Oxycodone 5. Have you had previous spinal surgery for this same symptoms? No If YES please ask for the name of facility/address of where the surgery was completed: Additional Comments [phone] documented in this encounter [facility] 10-17-2024 Note HNO ID: [id number] Author: ?, ?, ? Service: ? Author Type: ? Type: Progress Notes Filed: 10/17/2024 15:48 Note Text: Patient name: Gustavo Flores Are you being referred by a Center for Spine Health Provider or Pain Management Provider at [facility]? No If answer is YES please [...] facility where the MRI/CT/myelogram was completed: [facility] [address] [id number] [facility] - Radiology [address] [place] [address] MRI/CT/myelogram viewable in Epic: No If not, please provide [phone] to fax in imaging reports for review. [...] symptoms related to this visit? Lumbar Spine Leg pain, Numbness, Tingling, weakness Bilateral Back pain Yes Leg pain Yes bilateral Arm pain No Neck pain No 2. Are you having any of the following symptoms: Difficulty walking Yes balance issue Numbness Yes legs, feet Weakness Yes Trouble using your hands? No 3. Have you had any injections or physical therapy in the last 12 months? Yes If YES then please ask for the name/address of the facility where the injections and/or physical therapy was completed Injection: [facility] [address] [id number] PT: [facility] [address] [id number] Have you tried any other kinds of non-surgical treatments in the last 12 months? (For example: NSAIDS, muscle relaxants, analgesics, oral steroids, Chiropractor, Acupuncture): Baclofen, Gabapentin 4. Are you currently taking daily prescribed narcotic medications for your current symptoms (For example Oxycodone, Hydrocodone, Tramadol, Morphine, Other)? Yes Oxycodone 5. Have you had previous spinal surgery for this same symptoms? No If YES? please ask for the name of facility/address of where the surgery was completed: Additional Comments [phone] [facility] 08-10-2024 History of Present illness Narrative Images from the original note were not included. [facility] Spine [facility] [address] [facility] [address] [facility] [id number] Subjective Patient ID: Gustavo Flores is a 68 y.o. female. Encounter Date: 08/10/2024 CHIEF COMPLAINT Chief Complaint Patient presents with Consult New patient, lumbar, xrays in chart HISTORY OF PRESENT ILLNESS HPI Gustavo Flores is a new patient to Spine Care [...] directed stretches daily for 15 minutes since. -health care marketing manager: none -Pain management: [facility] Dr Brian Last saw once and recommended SCS-have to rule out surgical concern first Has had injections in low back, last around 2023 per patient-they do not really help Prior [facility] pain management -Pertinent spine surgeries/previous consults: 30 [...] facet related degenerative disease. MRI lumbar 05/18/2023 [facility] Findings: Subacute lumbar spine fractures, acute malalignment [...] L3-4. Mild right L4-5. Mild left L1-2. Ajmz-eg-pusqqbau left L2-3 and L3-4. Mild left L4-5 and L5-S1. Atrophic left kidney. Right pelvic kidney. Remainder unremarkable. CT cervical 01/19/2023 [facility] Findings: From anterior diskectomy and fusion at [...] in moderate spinal stenosis at C4-5. 4. Zjgw-ca-vtholbdv foraminal narrowing at multiple levels as described [...] extremities but decreased below the knee's bilaterally. Ggae's negative Ankle Clonus negative The following portions [...] DAY READER) misc, FreeStyle Sylvia 14 Day [place], Disp: , Rfl: flash glucose sensor (FREESTYLE [...] Diagnosis Date Diabetes mellitus type 2, controlled [place] Diabetic peripheral neuropathy [place] History of kidney cancer 2011 Insulin dependent [...] or continue with spine stimulator. Recommendations Lumbar MRI-[facility]-advised patient to let me know after complete so we can request images Follow up: I will update her after MRI and she will let me know if she wants referral to local neurosurgery or [facility] for surgical consult I educated the patient [...] for the referral. JOSÉ MIGUEL Denton (Cryan)P-C [facility] All questions were answered during the encounter and the patient was in agreement with plan of care. This office visit was spent face to face with the patient addressing counseling/education, reviewing test results if noted, instructions for management, treatment options and importance of compliance with treatment, performing medically appropriate examination and or coordination of care. SHANNON Boswell 08/10/24 1558 documented in this encounter [facility] 08-10-2024 Instructions SHANNON Boswell - 08/10/2024 1:30 [...] before switching to the other temperature. Take ubhq-dfw-xyndwab medicines. The use of fsrf-zjx-uenoxhy medications such as anti-inflammatory (Ibuprofen, Aleve, Naproxen) [...] conditions listed above. When to notify your admissions specialist: If your neck pain or back [...] you do not have a PCP, call [phone] to schedule a new patient appointment. documented in this encounter [facility] [employer] 05-13-2023 Evaluation note Encounter Date Diagnosis Assessment Notes Apr, Type 2 diabetes mellitus with hyperglycemia (ICD-10 - E11.65) Diabetes (type 2) material was published 1. Uncontrolled, a Type 2 diabetes with A1c of 8.4% 2. Blood glucose levels above target. According to sylvia 2 cgm download 04/30/23-: Avg glucose 167. [...] 6. Prescriptions: araseli Sepulveda novolog sent to [facility]. 7. 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 Pt verbalizes understanding. 3. 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) Jan, Kidney transplant status (ICD-10 - Z94.0) keep f/u with nephrology/transpl ant team Jan, Hypoglycemia (ICD-10 - E16.2) Low blood glucose and diabetes material was published Jan, BMI 37.0-37.9, adult (ICD-10 - Z68.37) Eating healthy: tips to make it easier material was published 6 pound weight loss from last visit, continue with weight loss efforts [employer] Other 04-18-2023 NotePROCEDURE: XR LSPINE 2_3 VIEWS [...] by: SHADI KNOX Date: 2022-09-29 14:41[facility]04-13-2023 NoteCONSULTATION CONSULTATION DATE: 09/24/2022 TO: [...] our patients to inform us about any ynzg-zkx-aaimvzw medications or herbal remedies/nutritional supplements/alternative remedies. 2. [...] treatment options with their primary care provider.[id number] note * Encounter Date Diagnosis Assessment [...] Jul, Left hand pain (ICD-10 - M79.642) [employer] Other 01-31-2023 Evaluation note* Encounter Date Diagnosis Assessment Notes Treatment Notes Treatment Clinical Notes Jun, Type 2 diabetes mellitus with hyperglycemia (ICD-10 - E11.65) Diabetes (type 2) material was published 1. Uncontrolled, a Type 2 diabetes with A1c of 7.9% 2. Blood glucose levels improved from last visit; however, above target. According to [employer] cgm download 07/01/2022- 3: Avg glucose 159. 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 Do, Neurosurgery, in [place] in the past, who did recommend a lumbar fusion in 2019. She has since been referred to [facility] Neurosurgery for a second [...] in three months to maintain her medications.[id number] Evaluation note* Encounter Date Diagnosis Assessment Notes Treatment Notes Treatment Clinical Notes May, Type 2 diabetes mellitus with hyperglycemia (ICD-10 - E11.65) [employer] Other 11-21-2022 Evaluation note* Encounter Date Diagnosis Assessment Notes Treatment Notes Treatment Clinical Notes Apr, Type 2 diabetes mellitus with hyperglycemia (ICD-10 - E11.65) [employer] Other 11-14-2022 Evaluation note* Encounter Date Diagnosis Assessment Notes Treatment Notes Treatment Clinical Notes Apr, Type 2 diabetes mellitus with hyperglycemia (ICD-10 - E11.65) [employer] Other 09-28-2022 Evaluation note* Encounter Date Diagnosis Assessment Notes Treatment Notes Treatment Clinical Notes Feb, Type 2 diabetes mellitus with hyperglycemia (ICD-10 - E11.65) Diabetes (type 2) material was published 1. Uncontrolled, a Type 2 diabetes with A1c of 8.0% 2. Blood glucose levels improved from last visit; however, above target. According to [employer] cgm download 02/26/2022- 2: Avg glucose 169. 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 She states that helps her [...] There will be no dose changes to [place]. She will be back in three months' time, if she does not want to move forward with the procedure.[id number] [facility]* Encounter Date Diagnosis Assessment Notes Treatment Notes Treatment Clinical Notes Nov, Type 2 diabetes mellitus with hyperglycemia (ICD-10 - E11.65) Diabetes (type 2) material was published 1. Uncontrolled, a Type 2 diabetes with A1c of 8.4% 2. Blood glucose levels improved from last visit; however, above target. According to [employer] cgm download 11/21/2021- 2: Avg glucose 182. [...] 6. Prescriptions: Ozempic 2mg/Jardiance 25mg sent to [employer] Nov, Dietary counseling and surveillance (ICD-10 - Z71.3) Maintaining a healthful weight material was published Nov, Hyperlipidemia (ICD-10 - E78.5) Managing your cholesterol material was published 07/2021 ldl 79, trig 355, on statin. 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 [facility] Signed and Approved by: DOMI SMITH . 11/27/2021 16:02:00[facility]02-22-2022 Evaluation note* Encounter Date Diagnosis Assessment Notes Treatment Notes Treatment Clinical Notes Jul, Type 2 diabetes mellitus with hyperglycemia (ICD-10 - E11.65) Diabetes (type 2) material was published 1. Uncontrolled, a Type 2 diabetes with A1c of 7.9% 2. Blood glucose levels improved from last visit; however, above target. According to [employer] cgm download 07/23/2021-08/05/2021 : Avg glucose 154. [...] issues. 6. Prescriptions: Sent ozempic 1mg to [facility]. Jul, Dietary counseling and surveillance (ICD-10 - Z71.3) Maintaining a healthful weight material was published Jul, Hyperlipidemia (ICD-10 - E78.5) Managing your cholesterol material was published 07/2021 ldl 79, trig 355, on statin. Jul, HTN (hypertension) (ICD-10 - I10) Managing high blood pressure material was published Jul, custodial current use of insulin (ICD-10 - Z79.4) Jul, Kidney transplant status (ICD-10 - Z94.0) keep f/u with nephrology Jul, BMI 39.0-39.9,adult (ICD-10 - Z68.39) Healthy eating material was published 9 pound weight loss from last visit, continue with weight loss efforts Jul, Vitamin D deficiency (ICD-10 - E55.9) 07/2021 vit d 23.9, recommend otc vit d 2000 units once daily [employer] Other 02-01-2022 Evaluation note* Encounter Date Diagnosis Assessment Notes Treatment Notes Treatment Clinical Notes Jul, Type 2 diabetes mellitus with hyperglycemia (ICD-10 - E11.65) [employer] Other 11-01-2020 History general Narrative - Reported* Type Description Date Medical History DM2 Medical History KIDNEY RT/TRANSPLANT 2012 Medical History HLP Medical History HTN Medical History PVD Medical History Fractured left ankle 04/2020 Surgical History RT KIDNEY TRANSPLANT 2013 Surgical History LT SHOULDER Surgical History HYSTER Surgical History [facility] Hospitalization History SEE ABOVE SURGERY [employer] Other Chief complaint+Reason for visit Narrative* Chief Complaint 3 month f/u/ sylvia alvarez Reason for Visit BMI 36.0-36.9,adult Dietary counseling and surveillance History of transplantation, renal Hyperlipidemia Hypertension Type 2 diabetes mellitus with hyperglycemia [facility] Work Phone: Evaluation noteNo InformationNort [employer] Other Evaluation noteNo assessment information available [facility] Work Phone: Evaluation note* Diagnosis Onset Date Resolution Status Type 2 diabetes mellitus with hyperglycemia acute [facility] Work Phone: Evaluation note* Diagnosis Onset Date Resolution Status BMI 36.0-36.9,adult acute Dietary counseling and surveillance acute History of transplantation, renal acute Hyperlipidemia acute Hypertension acute Type 2 diabetes mellitus with hyperglycemia acute [facility] Work Phone: Evaluation note* Diagnosis Anemia, unspecified [facility] Diagnosis Onset Date Resolution Status Admit Date BMI 36.0-36.9,adult acute Febru hang2024 9:47am Dietary counseling and surveillance acute July 18 9:47am History of transplantation, renal acute July 18 9:47am Hyperlipidemia acute July 182024 9:47am Hypertension acute July 9:47am Type 2 diabetes mellitus wit h hyperglycemia acute July 18 9:47am [facility] Work Phone: Evaluation note* Diagnosis Spinal stenosis of lumbar region with neurogenic claudication- Primary Spondylolisthesis of lumbar region Lumbar facet arthropathy Spondylosis 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 [facility] Diagnosis Spinal stenosis of lumbar region with neurogenic claudication- Primary Spondylolisthesis of lumbar region Chronic bilateral low back pain with bilateral sciatica [facility] Diagnosis Lumbar foraminal stenosis- Primary Spinal stenosis, lumbar region, without neurogenic claudication [facility] Medicare annual wellness visit, subsequent- Primary Depression screening Encounter for screening mammogram for malignant neoplasm of breast [facility] Diagnosis Anemia, unspecified [facility] Dis[facility] instructionsAmbulatory Orders* Referral to Diabetes Education Location: None Selected [facility] Work Phone: InstructionsNot on filedocumented in this encounter [facility] SystemInstructionsNot on filedocumented in this encounter [facility] SystemInstructionsNot on filedocumented in this encounter [facility] SystemInstructionsNot on filedocumented in this encounter [facility] SystemInstructionsNot on filedocumented in this encounter [facility] Summary Purpose Family History No Family History [...] Date/ Time Advance Directives No October 08 4:05pm Advance Directive Response Recorded Date/ Time [...] Reason Onset Date Comments Med Refill 09/04/2024 Reason Onset Date Comments Med Refill 12/12/2024 Reason Comments Med Change Request Reason Comments maw Reason Onset Date Comments Med Refill 01/05/2025 INFORMATION SOURCE (unrecogn ized section and content) DATE CREATED AUTHOR 10/24/2022 [facility] DATE CREATED AUTHOR AUTHOR'S ORGANIZ ATION 07/28/2023 [facility] DATE CREATED AUTHOR AUTHOR'S ORGANIZ ATION 10/02/2023 [facility] DATE CREATED AUTHOR AUTHOR'S ORGANIZ ATION 04/15/2024 [facility] DATE CREATED AUTHOR AUTHOR'S ORGANIZ ATION 05/31/2024 [facility] DATE CREATED AUTHOR AUTHOR'S ORGANIZ ATION 12/14/2024 [facility] DATE CREATED AUTHOR AUTHOR'S ORGANIZ ATION 01/19/2025 [facility] DATE CREATED AUTHOR AUTHOR'S ORGANIZ ATION 02/24/2025 [facility] Care Teams (unrecognized sec tion and content) Team Status: Active Member Role Status Dates OSITO Rboerts Primary Care Provider Active Team Status: Inactive Member Role Status Dates Airam Thomas APRN Attending Provider Active Start: May 13, 2023 End: May 13, 2023 Team Status: Inactive Member Role Status Dates NON STAFF Primary Care Provider Active Start: May 13, 2023 End: May 13, 2023 Jonathan Nick APRN ONCOLOGY COORDINATOR-C Active Sta rt: May 13, 2023 End: [...] February 23, 2024 End: February 23, 2024 Production Broaching Machine Operator Relationship Specialty Start Date End Date Alexandria Howard ENTERPRISE INTEGRATION ARCHITECT-YARDMASTER [address] [place] [address] PCP - General Family Medicine 02/16/24 Production Broaching Machine Operator Relationship Specialty Start Date End Date Alexandria Howard ENTERPRISE INTEGRATION ARCHITECT-YARDMASTER [address] [place] [address] PCP - General Family Medicine 02/16/24 Team Status: Inactive Member Role Status Dates OSITO Roberts Primary Care Provider Active S tart: July 18, 2024 End: July 18, 2024 Airam Thomas APRN Attending Provider Active Start: July 18, 2024 End: July 18, 2024 Production Broaching Machine Operator Relationship Specialty Start Date End Date Alexandria Howard ENTERPRISE INTEGRATION ARCHITECT-YARDMASTER [address] [place] [address] PCP - General Family Medicine 02/16/24 Production Broaching Machine Operator Relationship Specialty Start Date End Date Alexandria Howard ENTERPRISE INTEGRATION ARCHITECT-YARDMASTER [address] [place] [address] PCP - General Family Medicine 02/16/24 Production Broaching Machine Operator Relationship Specialty Start Date End Date Alexandria Howard ENTERPRISE INTEGRATION ARCHITECT-YARDMASTER [address] [place] [address] PCP - General Family Medicine 02/16/24 Production Broaching Machine Operator Relationship Specialty Start Date End Date Altagracia Arriola PCP - General 07/20/05 Domi Smith CNP [address] [place] [phone] Referring Pain Management 07/14/21 Qiana Chiu, HIMA [address] [facility]], [place] [address] Referring 05/27/23 Elen Archer CNP [address] [place] [address] Family Medicine 09/29/24 Production Broaching Machine Operator Relationship Specialty Start Date End Date Alexandria Howard APRN-YARDMASTER [address] [place] [address] PCP - General Family Medicine 02/16/24 Production Broaching Machine Operator Relationship Specialty Start Date End Date Alexandria Howard APRN-YARDMASTER [address] [place] [address] PCP - General Family Medicine 02/16/24 Production Broaching Machine Operator Relationship Specialty Start Date End Date Altagracia Arriola PCP - General 07/20/05 Domi Smith CNP [address] [facility]], [place] [phone] Referring Pain Management 07/14/21 Qiana Chiu CNP [address] [facility]], [place] [address] Referring 05/27/23 Elen Archer CNP [address] [place] [address] Family Medicine 09/29/24 Production Broaching Machine Operator Relationship Specialty Start Date End Date Alexandria Howard APRN-YARDMASTER [address] [place] [address] PCP - General Family Medicine 02/16/24 Production Broaching Machine Operator Relationship Specialty Start Date End Date Alexandria Howard, ENTERPRISE INTEGRATION ARCHITECT-YARDMASTER [address] [place] [address] PCP - General Family Medicine 02/16/24 Goals (unrecognized section and content) Goals may be documented in a n alternate section Source Comments (unrecognize d section and content) In the event this informatio n is protected by the Federal Confidentiality of Alcohol and Drug Abuse Patient Records regulations: The Federal rules restrict any use of the information to criminally investigate or prosecute any alcohol or drug abuse patient.[facility] the event this information is protected by the Federal Confidentiality of Alcohol and Drug Abuse Patient Records regulations: The Federal rules restrict any use of the information to criminally investigate or prosecute any alcohol or drug abuse patient.[facility] FOR RECORDS PERTAINING TO PATIENTS WHO ARE [...] BE BASED ON THE PRIMARY CLINICAL RECORDS. [facility]. provides no warranty or guarantee of the accuracy or completeness of information in this document.
--- OUTSIDE RECORDS SUMMARY | 2025-03-08 08:38 | XMS_ITS | Encounter Summary ---
Author Organization [employer] s tem Address [id number] [address] [place] [address] Care Team Providers Care Shingle Catcher Name Role Phone Carrie Reddy Tomi CARRION-DISABILITY MANAGER Primary Care Provider + Encounter Details Date Type Department Care Team (Late st Contact Info) Description 05/20/2023 Orders Only [facility] Internal Medicine - Family Medicine [address] [place] [phone] Marycruz Guzman, MURALI-ASSISTANT PROFESSOR OF MARINE BIOLOGY [address] [place] [address] Social History Tobacco Use Types Packs/Day Years [...] Recorded Do you need help finding a [facility] career center and/or a training [...] Medicine - Family Medicine [address] [place] [address] documented as of this encounter Procedures Procedure Name Priority Date/Time Associated Diagnosis Comments MR LUMBAR SPINE WO CONT Routine 05/18/2023 8:41 AM EST documented in this encounter Results * MR lumbar spine without contrast (05/18/2023 8:41 AM EST) Anatomical Region Laterality Modality MSK, Neuro, Spine, L-spine, Spine Covera N/A Magnetic Resonance Marycruz Guzman FOOD MIXER REPAIRER-ASSISTANT PROFESSOR OF MARINE BIOLOGY IMG MRI ORDERABLES Final Re sult documented in this encounter Visit Diagnoses Not on filedocumented in this encounter Additional Health Concerns Assessment Noted Time PHQ-9 Depression Total Score: 0 04/06/20 23 1:38 PM EDT documented as of this encounter Care Teams Shingle Catcher Relationship Specialty Start Date End Date Carrie Reddy APRN-DISABILITY MANAGER [address] [place] [address] PCP - General Family Medicine 02/16/24 documented as of this encounter
--- OUTSIDE RECORDS SUMMARY | 2025-03-08 08:38 | XMS_ITS | Encounter Summary ---
Author Organization [employer] s tem Address [id number] [address] [place] [address] Care Team Providers Care Women'S Basketball Coach Name Role Phone Carrie Reddy Tomi CARRION-HEALTH AND PHYSICAL EDUCATION PROFESSOR Primary Care Provider + Encounter Details Date Type Department Care Team (Late st Contact Info) Description 04/16/2023 Orders Only [facility] Internal Medicine - Family Medicine [address] [place] [address] Dylan Galaviz, [address] [place] [address] Personal history of colonic polyps (Primary Dx) [...] often do you attend chur ch or zoroastrianism services? More than 4 times per year 11/03/2022 Do you belong to any clubs o r organizations such as muslim groups, unions, fraternal [...] Answer Date Recorded Total Score 0 04/06/2023 [facility] [place] of Occupat ional Health - Occupational Stress [...] Do you need help finding a [facility] career center and/or a training program? No [...] Medicine - Family Medicine [address] [place] [address] documented as of this encounter Visit Diagnoses Diagnosis Personal history of colonic polyps- Primary documented in this encounter Additional Health Concerns Assessment Noted Time PHQ-9 Depression Total Score: 0 04/06/20 23 1:38 PM EDT documented as of this encounter Care Teams Women'S Basketball Coach Relationship Specialty Start Date End Date Carrie Reddy APRN-HEALTH AND PHYSICAL EDUCATION PROFESSOR [address] [place] [address] PCP - General Family Medicine 02/16/24 documented as of this encounter
--- OUTSIDE RECORDS SUMMARY | 2025-03-08 08:38 | XMS_ITS | Encounter Summary ---
Author Organization [employer] Sys tem Address [id number] [address] [place] [address] Care Team Providers Care Cooking Show Host Name Role Phone Carrie Reddy MURALI-CHEMICAL ANALYST Primary Care Provider + Reason for Visit * Reason Onset Date Comments Med Refill 02/07/2024 Encounter Details Date Type Department Care Team (Late st Contact Info) Description 02/07/2024 [facility] Medicine [address] [place] [address] Nanette Warren CMA Social History Tobacco Use [...] Family Medicine [address] [place] [address] documented as of this encounter Visit Diagnoses Not on filedocumented in this encounter Additional Health Concerns Assessment Noted Time PHQ-9 Depression Total Score: 0 04/06/20 23 1:38 PM EDT documented as of this encounter Care Teams Cooking Show Host Relationship Specialty Start Date End Date Carrie Reddy APRN-CHEMICAL ANALYST [address] [place] [address] PCP - General Family Medicine 02/16/24 documented as of this encounter
--- OUTSIDE RECORDS SUMMARY | 2025-03-08 08:38 | XMS_ITS | Encounter Summary ---
Author Organization [employer] Sys tem Address [id number] [address] [place] [address] Care Team Providers Care Hardboard Press Operator Name Role Phone Carrie Reddy MURALI-DISTRIBUTION COLLECTION OPERATOR Primary Care Provider + Reason for Visit * Reason Onset Date Comments Med Refill 11/10/2022 Encounter Details Date Type Department Care Team (Late st Contact Info) Description 11/10/[address] [facility] Medicine [address] [place] [address] Nanette Warren CMA Mixed hyperlipidemia Social History [...] often do you attend chur ch or mosque services? More than 4 times per year 11/03/2022 Do you belong to any clubs o r organizations such as mandaeism groups, unions, fraternal or athletic groups, or [...] Answer Date Recorded Total Score 9 11/03/2022 [facility] of Occupat ional Health - Occupational [...] - Family Medicine [address] [place] [address] documented as of this encounter Visit Diagnoses Diagnosis Mixed hyperlipidemia documented in this encounter Additional Health Concerns Assessment Noted Time PHQ-9 Depression Total Score: 9 11/04/19 10:00 AM EDT documented as of this encounter Care Teams Hardboard Press Operator Relationship Specialty Start Date End Date Carrie Reddy, TRUCK SALES REPRESENTATIVE-DISTRIBUTION COLLECTION OPERATOR [address] [place] [address] PCP - General Family Medicine 02/16/24 documented as of this encounter
--- OUTSIDE RECORDS SUMMARY | 2025-03-08 08:38 | XMS_ITS | Encounter Summary ---
Author Organization [employer] Sys tem Address [facility] [place]-[id number] [address] [place] [address] Care Team Providers Care Palliative Care Nurse Practitioner Name Role Phone Carrie Reddy Tomi ROBLESN-REIMBURSEMENT REP Primary Care Provider + Reason for Visit * Reason Comments Med Refill Encounter Details Date Type Department Care Team (Late st Contact Info) Description 11/20/2022 Refill [facility] Internal Medicine - Family Medicine [address] [place] [address] Marycruz Guzman, MURALI-OPERATION SUPERVISOR [address] [place] [address] Social History Tobacco Use Types Packs/Day Years [...] often do you attend chur ch or buddhist services? More than 4 times per year 11/03/2022 Do you belong to any clubs o r organizations such as amish groups, unions, fraternal or athletic groups, or [...] Answer Date Recorded Total Score 9 11/03/2022 [facility] [place] of Occupat ional Health - Occupational Stress [...] Medicine - Family Medicine [address] [place] [address] documented as of this encounter Visit Diagnoses Not on filedocumented in this encounter Additional Health Concerns Assessment Noted Time PHQ-9 Depression Total Score: 9 11/04/19 10:00 AM EDT documented as of this encounter Care Teams Palliative Care Nurse Practitioner Relationship Specialty Start Date End Date Carrie Reddy APRN-REIMBURSEMENT REP [address] [place] [address] PCP - General Family Medicine 02/16/24 documented as of this encounter
--- OUTSIDE RECORDS SUMMARY | 2025-03-08 08:38 | XMS_ITS | Encounter Summary ---
Author Organization [employer] Sys tem Address [id number] [address] [place] [address] Care Team Providers Care Fugitive Detective Name Role Phone Carrie Reddy Tomi CARRION-COMPOSER TEACHING ARTIST Primary Care Provider + Encounter Details Date Type Department Care Team (Late st Contact Info) Description 03/29/2023 Telephone [facility] Internal Medicine - Family Medicine [address] [place] [phone] Tracie Johnston CMA Social History Tobacco Use [...] How often do you attend chur or adventism services? More than 4 times per year 11/03/2022 Do you belong to any clubs o r organizations such as religious groups, unions, fraternal or athletic groups, or [...] Answer Date Recorded Total Score 9 11/03/2022 [facility] - Occupational Stress Questionnaire Answer Date [...] Medicine - Family Medicine [address] [place] [place] [address] documented as of this encounter Visit Diagnoses Not on filedocumented in this encounter Additional Health Concerns Assessment Noted Time PHQ-9 Depression Total Score: 9 11/04/19 23 10:00 AM EDT documented as of this encounter Care Teams Fugitive Detective Relationship Specialty Start Date End Date Carrie Reddy APRN-COMPOSER TEACHING ARTIST [address] [place] [address] PCP - General Family Medicine 02/16/24 documented as of this encounter
--- OUTSIDE RECORDS SUMMARY | 2025-03-08 08:38 | XMS_ITS | Encounter Summary ---
Author Organization [employer] Sys tem Address [id number] [address] [place] [address] Care Team Providers Care Machine Loader Name Role Phone Carrie Reddy Tomi CARRION-SOIL SAMPLER Primary Care Provider + Encounter Details Date Type Department Care Team (Late st Contact Info) Description 07/07/2023 [facility]phone [facility] - Family Medicine [address] [place] [address] Nanette Warren CMA Social History Tobacco Use [...] often do you attend chur ch or scientology services? More than 4 times per year [...] Answer Date Recorded Total Score 0 04/06/2023 [facility] - Occupational Stress Questionnaire Answer [...] Recorded Do you need help finding a [employer] al career center and/or a training program? [...] Medicine - Family Medicine [address] [place] [address] documented as of this encounter Visit Diagnoses Not on filedocumented in this encounter Additional Health Concerns Assessment Noted Time PHQ-9 Depression Total Score: 0 04/06/20 23 1:38 PM EDT documented as of this encounter Care Teams Machine Loader Relationship Specialty Start Date End Date Carrie Reddy, MURALI-SOIL SAMPLER [address] [place] [address] PCP - General Family Medicine 02/16/24 documented as of this encounter
--- OUTSIDE RECORDS SUMMARY | 2025-03-08 08:38 | XMS_ITS | Encounter Summary ---
Author Organization [employer] tem Address [id number] [address] [place] [address] Care Team Providers Care Human Resources Generalist Name Role Phone Carrie Reddy FILTERS ASSEMBLER-ASSISTANT HEAD CASHIER Primary Care Provider + Reason for Visit * Reason Comments Med Refill Encounter Details Date Type Department Care Team (Late Contact Info) Description 10/11/2022 [facility] Medicine [address] [place] [address] Marycruz Guzman, MURALI-VETERAN APPEALS REVIEWER [address] [place] [address] Osteoarthritis of both hands, unspecified osteoarthritis type [...] Department Care Team (Late Contact Info) Description 12/13/2025 10:00 AM EDT Office Visit [facility] Internal Medicine - Family Medicine [address] [place] [address] documented as of this encounter Visit Diagnoses Diagnosis Osteoarthritis of both hands, unspecified osteoarthritis type documented in this encounter Care Teams Human Resources Generalist Relationship Specialty Start Date End Date Carrie Reddy APRN-ASSISTANT HEAD CASHIER [address] [place] [address] PCP - General Family Medicine 02/16/24 documented as of this encounter
--- OUTSIDE RECORDS SUMMARY | 2025-03-08 08:38 | XMS_ITS | Encounter Summary ---
Author Organization [employer] s tem Address [id number] [address] [place] [address] Care Team Providers Care Splitter Head Name Role Phone Carrie Reddy STAMPING BENCH DIE MAKER-VALANCE CUTTER Primary Care Provider + Reason for Visit * Reason Comments Med Refill Encounter Details Date Type Department Care Team (Late Contact Info) Description 04/27/2022 Refill [facility] Internal Medicine - Family Medicine [address] [place] [address] Marycruz Guzman, STAMPING BENCH DIE MAKER-HOUSEKEEPING AND LAUNDRY TEAM LEADER [address] [place] [address] Social History Tobacco Use Types Packs/Day Years [...] - Family Medicine [address] [place] [address] documented as of this encounter Visit Diagnoses Not on filedocumented in this encounter Care Teams Splitter Head Relationship Specialty Start Date End Date Carrie Reddy APRN-VALANCE CUTTER [address] [place] [address] PCP - General Family Medicine 02/16/24 documented as of this encounter
--- OUTSIDE RECORDS SUMMARY | 2025-03-08 08:38 | XMS_ITS | Encounter Summary ---
Author Organization [employer] Sys tem Address [id number] [address] [place] [address] Care Team Providers Care Price Accuracy Supervisor Name Role Phone Carrie Reddy Tomi CARRION-BLOCK SEALER Primary Care Provider + Reason for Visit * Reason Onset Date Comments Med Refill 02/09/2024 Encounter Details Date Type Department Care Team (Late st Contact Info) Description 02/09/2024 [facility] Medicine [address] [place] [address] Arabella, Aaliyah, HEATING AND VENTILATING DRAFTER Social History Tobacco Use Types Packs/Day Years [...] often do you attend chur ch or restoration services? More than 4 times per year 11/03/2022 Do you belong to any clubs o r organizations such as judaism groups, unions, fraternal or athletic groups, or [...] Answer Date Recorded Total Score 0 04/06/2023 [facility] of Occupat ional Health - Occupational [...] Medicine - Family Medicine [address] [place] [address] documented as of this encounter Visit Diagnoses Not on filedocumented in this encounter Additional Health Concerns Assessment Noted Time PHQ-9 Depression Total Score: 0 04/06/20 23 1:38 PM EDT documented as of this encounter Care Teams Price Accuracy Supervisor Relationship Specialty Start Date End Date Carrie Reddy APRN-CNP [address] [place] [address] PCP - General Family Medicine 02/16/24 documented as of this encounter
--- OUTSIDE RECORDS SUMMARY | 2025-03-08 08:38 | XMS_ITS | Encounter Summary ---
Author Organization [employer] Sys tem Address [id number] [address] [place] [address] Care Team Providers Care Database Administration Project Manager Name Role Phone Carrie Reddy MURALI-POCKETED SPRING ASSEMBLER Primary Care Provider + Encounter Details Date Type Department Care Team (Late st Contact Info) Description 01/19/2023 Orders Only [facility] Internal Medicine - Family Medicine [address] [place] [address] External, Scanning Provider Social History Tobacco Use [...] Answer Date Recorded Total Score 9 11/03/2022 [facility] of Occupat ional [facility] - Occupational Stress Questionnaire Answer Date [...] Recorded Do you need help finding a [employer] al career center and/or a training program? [...] - Family Medicine [address] [place] [address] documented as of this encounter Procedures Procedure [...] documented as of this encounter Care Teams Database Administration Project Manager Relationship Specialty Start Date End Date Carrie Reddy APRN-POCKETED SPRING ASSEMBLER [address] [place] [address] PCP - General Family Medicine 02/16/24 documented as of this encounter
--- OUTSIDE RECORDS SUMMARY | 2025-03-08 08:38 | XMS_ITS | Encounter Summary ---
Author Organization [employer] Sys tem Address [id number] [address] [place] [address] Care Team Providers Care Microbiology Soil Scientist Name Role Phone Carrie Reddy Tomi CARRION-CAN TENDER Primary Care Provider + Encounter Details Date Type Department Care Team (Late st Contact Info) Description 04/06/2023 Telephone [facility] Internal Medicine - Family Medicine [address] [place] [address] Nanette Warren CMA Social History Tobacco Use [...] any clubs o r organizations such as rastafari groups, unions, fraternal or athletic groups, or [...] Answer Date Recorded Total Score 0 04/06/2023 [facility] - Occupational Stress Questionnaire Answer Date Recorded [...] Recorded Do you need help finding a [employer] al career center and/or a training program? [...] try the [employer]. Please send them to [facility]. * Telephone Encounter - Dylan Galaviz DO - 04/06/2023 2:56 PM EDT Message noted. H&P done. Rx sent. documented in this encounter Plan of Treatment Upcoming Encounters Date Type Department Care Team (Late st Contact Info) Description 12/13/2025 10:00 AM EDT Office Visit [facility] Internal Medicine - Family Medicine [address] [place] [address] documented as of this encounter Visit Diagnoses Not on filedocumented in this encounter Additional Health Concerns Assessment Noted Time PHQ-9 Depression Total Score: 0 04/06/20 23 1:38 PM EDT documented as of this encounter Care Teams Microbiology Soil Scientist Relationship Specialty Start Date End Date Carrie Reddy, SORTING LIVESTOCK WORKER-CAN TENDER [address] [place] [address] PCP - General Family Medicine 02/16/24 documented as of this encounter
--- OUTSIDE RECORDS SUMMARY | 2025-03-08 08:38 | XMS_ITS | Encounter Summary ---
Author Organization [employer] s tem Address [facility] [place]-[id number] [address] [place] [address] Care Team Providers Care Dial Screw Assembler Name Role Phone Carrie Reddy SMOKING PIPE COATER-PARTS EXPEDITER Primary Care Provider + Reason for Visit * Reason Comments Med Refill Encounter Details Date Type Department Care Team (Late Contact Info) Description 10/23/2022 [facility] [address] [place] [address] Marycruz Guzman, MURALI-UNIVERSITY TEACHER [address] [place] [address] Osteoarthritis of both hands, unspecified osteoarthritis type; [...] Medicine - Family Medicine [address] [place] [address] documented as of this encounter Visit Diagnoses Diagnosis Osteoarthritis of both hands, unspecified osteoarthritis type Other insomnia Mixed hyperlipidemia documented in this encounter Care Teams Dial Screw Assembler Relationship Specialty Start Date End Date Carrie Reddy, SMOKING PIPE COATER-PARTS EXPEDITER [address] [place] [address] PCP - General Family Medicine 02/16/24 documented as of this encounter
--- OUTSIDE RECORDS SUMMARY | 2025-03-08 08:38 | XMS_ITS | Encounter Summary ---
Author Organization [employer] s tem Address [facility] [id number] [address] [place] [address] Care Team Providers Care Art Conservator Name Role Phone Carrie Reddy Tomi CARRION-EMBEDDED SOFTWARE MANAGER Primary Care Provider + Encounter Details Date Type Department Care Team (Late st Contact Info) Description 09/15/2023 Telephone [facility] Internal [facility] - Family Medicine [address] [place] [id number] Marycruz Guzman, MURALI-PERSONAL FINANCIAL REPRESENTATIVE [address] [place] [address] Social History Tobacco Use Types Packs/Day Years [...] any clubs o r organizations such as sabianist groups, unions, fraternal or athletic groups, or [...] Answer Date Recorded Total Score 0 04/06/2023 [facility] [...] Recorded Do you need help finding a college medical centeral career center and/or a training [...] Medicine - Family Medicine [address] [place] [address] documented as of this encounter Visit Diagnoses Not on filedocumented in this encounter Additional Health Concerns Assessment Noted Time PHQ-9 Depression Total Score: 0 04/06/20 23 1:38 PM EDT documented as of this encounter Care Teams Art Conservator Relationship Specialty Start Date End Date Carrie Reddy APRN-EMBEDDED SOFTWARE MANAGER [address] [place] [address] PCP - General Family Medicine 02/16/24 documented as of this encounter
--- OUTSIDE RECORDS SUMMARY | 2025-03-08 08:38 | XMS_ITS | Encounter Summary ---
Author Organization [facility] s tem Address [facility] [id number] [address] [place] [address] Care Team Providers Care Angiography Technologist Name Role Phone Carrie Reddy MURALI-INDEPENDENT FREIGHT AGENT Primary Care Provider + Encounter Details Date Type Department Care Team (Late st Contact Info) Description 09/15/2023 Orders Only [facility] Internal Medicine - Family Medicine [address] [place] [phone] Marycruz Guzman, MURALI-FIELD MARKETING SPECIALIST [address] [place] [address] Social History Tobacco Use Types Packs/Day Years [...] often do you attend chur ch or bahai services? More than 4 times per year [...] Answer Date Recorded Total Score 0 04/06/2023 [facility] [...] Do you need help finding a [facility] career [facility] and/or a training program? [...] Medicine - Family Medicine [address] [place] [address] documented as of this encounter Visit Diagnoses Not on filedocumented in this encounter Additional Health Concerns Assessment Noted Time PHQ-9 Depression Total Score: 0 04/06/20 23 1:38 PM EDT documented as of this encounter Care Teams Angiography Technologist Relationship Specialty Start Date End Date Carrie Reddy APRN-INDEPENDENT FREIGHT AGENT [address] [place] [address] PCP - General Family Medicine 02/16/24 documented as of this encounter
--- OUTSIDE RECORDS SUMMARY | 2025-03-08 08:38 | XMS_ITS | Encounter Summary ---
Author Organization [employer] s tem Address [facility] [id number] [address] [place] [address] Care Team Providers Care Mine Engineering Supervisor Name Role Phone Carrie Reddy MURALI-AIR QUALITY CHEMIST Primary Care Provider + Encounter Details Date Type Department Care Team ([facility] Contact Info) Description 03/13/2022 Orders Only [facility] Medicine [address] [place] [address] External, Scanning Provider Social History [...] 12/13/2025 10:00 AM EDT [facility] [address] [place] [address] documented as of this encounter Visit Diagnoses Not on filedocumented in this encounter Care Teams Mine Engineering Supervisor Relationship Specialty Start Date End Date Carrie Reddy, CHUCKING AND BORING MACHINE OPERATOR-AIR QUALITY CHEMIST [address] [place] [address] PCP - General Family Medicine 02/16/24 documented as of this encounter
--- OUTSIDE RECORDS SUMMARY | 2025-03-08 08:38 | XMS_ITS | Clinical Summary ---
Author Organization [facility] Address [address] [place] [address] Care Team Providers Care Angular Developer Name Role Phone Altagracia Arriola Primary Care Provider [phone] Domi Smith QUAD STAYER Unavailable [phone] Qiana Chiu QUAD STAYER Unavailable Heaven Ramos QUAD STAYER Unavailable [phone] Encounters Date Type Department Care Team Description 12/12/2024 Transcribe Orders Referring Physician [facility] [place] [address] Qiana Chiu CNP Lumbar foraminal stenosis (Primary Dx) from Last 3 Months Social History Tobacco Use Types Packs/Day Years Used Date Smoking Tobacco: Never Assessed Comments Unknown Sex and Gender Information Value Date Recorded Sex Assigned at Not on file Legal Sex Female 1:41 PM EST Gender Identity Not on file Sexual Orientation Not on file Plan of Treatment Upcoming Encounters Date Type Department Care Team (Late st Contact Info) Description 03/12/2025 1:00 PM EDT Office Visit Neurosurgery [address] [id number] Andrea Gu MD [address] [id number] C/o low back pain, bilateral leg pain, numbness / tingling, weakness, difficulty walking. Health Maintenance Due Date Last Done Comments Anxiety Screening 1972 Depression Screening 1972 Hepatitis C Screening 1972 CT Colonography 09/17/1999 Cologuard (FIT-DNA) 09/17/1999 Colonoscopy 09/17/1999 Colorectal Cancer Screening 09/17/1999 Fecal Occult Blood 09/17/1999 Sigmoidoscopy 09/17/1999 Shingrix Vaccine (1 of 2) 2004 DTaP,Tdap,Td Vaccine (2 - Tdap) 07/16/2014 5 Pneumococcal Vaccine: 50+ (3 of 3 - PCV20 or PCV21) 09/23/2020 09/24/2015, 04/19/2013, 02/10/2012 Mammogram Screening 04/21/2024 04/21/2023, 04/21/2023, 02/21/2018 Advance Directive Discussion 06/14/2024 Influenza Vaccine (#1) 2025 , 04/06/2023, 04/24/2020, Additional history exists Diabetes Screening 08/18/2027 08/17/2024, 1 , 12/17/2023, Additional history exists Lipid Screening 04/13/2029 04/13/2024, 02/12, 08/03/2022, Additional history exists RSV Vaccine (1 - 1-dose 75+ series) 2029 Bone Density Screening Completed 10/27/2018 Procedures Procedure Name Priority Date/Time Associated Diagnosis Comments EXTERNAL IMAGING 01/10/2025 10:3 4 AM EDT from Last 3 Months Results * EXTERNAL IMAGING (01/10/2025 10:34 AM EDT) Anatomical Region Laterality Modality Other External Provider PA-C RADIOLOGY Final Res ult from Last 3 Months Insurance [facility] MEDICARE ADVANTAGE HMO Care Teams Angular Developer Relationship Specialty Start Date End Date Altagracia Arriola PCP - General 07/20/05 Domi Smith CNP [address] [place] [address] Referring Pain Management 07/14/21 Qiana Chiu CNP [address] [place] [phone] Referring 05/27/23 Heaven Ramos CNP [address] [address] Family Medicine 09/29/24
--- OUTSIDE RECORDS SUMMARY | 2025-03-08 08:38 | XMS_ITS | Encounter Summary ---
Author Organization [employer] s tem Address [facility] [place][id number] [address] [place] [address] Care Team Providers Care Sausage Tier Name Role Phone Carrie Reddy BUILDING MAINTENANCE MECHANIC-SITE COORDINATOR Primary Care Provider + Reason for Visit * Reason Comments Med Refill Encounter Details Date Type Department Care Team (Late Contact Info) Description 10/04/2022 Refill [facility] Internal Medicine - Family Medicine [address] [place] [address] Marycruz Guzman, BUILDING MAINTENANCE MECHANIC-CHIEF SOLUTION ARCHITECT [address] [place] [address] Anemia, unspecified Social History Tobacco Use Types [...] - Family Medicine [address] [place] [address] documented as of this encounter Visit Diagnoses Diagnosis Anemia, unspecified documented in this encounter Care Teams Sausage Tier Relationship Specialty Start Date End Date Carrie Reddy APRN-SITE COORDINATOR [address] [place] [address] PCP - General Family Medicine 02/16/24 documented as of this encounter
--- OUTSIDE RECORDS SUMMARY | 2025-03-08 08:39 | XMS_ITS | Clinical Summary ---
Author Organization [facility] Address [address] [place] [address] Care Team Providers Care Dolphin Trainer Name Role Phone Unavailable Primary Care Provider [...]
--- OUTSIDE RECORDS SUMMARY | 2025-03-08 08:39 | XMS_ITS | Clinical Summary ---
Author Organization [facility] Address [address], [address] [place] [address] Care Team Providers Care Investment Banking Manager Name Role Phone Mariam Cowart APRN - DILLAN Primary Care Provide r Allergies No known active allergies Medications oxyCODONE-acetam inophen (PERCOCET) 10-325 MG per tablet Take 1 tablet by mouth three times daily. Active gabapentin (NEURONTIN) 600 MG tablet Take 600 mg by mouth 3 times daily. Active Insulin Glargine (LANTUS SC) Inject 40 Units into the skin Active atorvastatin (LIPITOR) 40 MG tablet Take 40 mg by mouth daily Active Family History Medical History Relation Name Comments Diabetes Father Heart Disease Father Stroke Father Arthritis Mother Diabetes Mother Heart Disease Mother Stroke Mother Relation Name Status Comments Father Mother Social History Tobacco Use Types Packs/Day Years Used Date Smoking Tobacco: Never Assessed Smokeless Tobacco: Never Comments Unknown Sex and Gender Information Value Date Recorded Sex Assigned at Not on file Legal Sex Female 4:16 PM EST Gender Identity Not on file Sexual Orientation Not on file Last Filed Vital Signs Vital Sign Reading Time Taken Comments Blood Pressure - - Pulse - - Temperature 36.4 C (97.6 F) 07/07/2019 2:42 PM EST Respiratory Rate - - Oxygen Saturation - - Inhaled Oxygen Concentration - - Weight 99.8 kg (220 lb) 07/07/2019 2:42 PM EST Height 162.6 cm (5' 4 ) 07/07/2019 2:42 PM EST Body Mass Index 37.76 07/07/2019 2:42 PM EST Plan of Treatment Not on file Insurance [employer] Care Teams Investment Banking Manager Relationship Specialty Start Date End Date Mariam Cowart, HISTOLOGY TECH - SERVICE WRITER [address] [place] [address] PCP - General 09/10/12
--- OUTSIDE RECORDS SUMMARY | 2025-03-08 08:39 | XMS_ITS ---
Author Organization [facility] ([facility]) Address [address] [place] [address] Care Team Providers Care Prevention Coordinator Name Role Phone Unavailable Unavailable Unavailable Allergies, Adverse Reactions, Alerts This patient has no known allergies or adverse reactions. Problems This patient has no known problems.
--- NOTE | 2025-03-08 09:40 | PM.CN ---
Consult Note: HPI Data of Consult Patient: known to practice within the last 3 years Consult date: 03/08/25 Requesting Physician: Qiana Chiu NP Primary Care Provider: ALEXANDRIA HOWARD Consult Narrative Reason for consult: low back, bilateral lower extremity pain Narrative: 69yof who presents for assessment. continues to have low back, bilateral lower extremity pain. imaging reviewed, which shows moderate to severe stenosis from l2-5. uses percocet and gabapentin. denies adverse med side effects. did trial methocarbamol with side effects and since discontinued. failed to benefit from greater than 6 weeks of provider guided HEP. Patient historically has declined interventional therapy and NS consult, however she is now interested in a spinal cord stimulator trial. Pending [facility] upcoming on Wednesday with unknown provider. Pain 10/10 increasing with all activity improved mildly from rest and current medications. pt has not noticed change in pain/quality of life since last visit despite stopping all muscle relaxers. 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.10 - Type 1 diabetes mellitus with ketoacidosis without coma (ICD-10) Kidney failure ?N19 - Unspecified kidney failure (ICD-10) Hypertension ?I10 - Essential (primary) hypertension (ICD-10) Surgical History History of cholecystectomy ?Z90.49 - Acquired absence of other specified parts of digestive tract (ICD-10) History of arthroscopy of left shoulder ?Z98.890 - Other specified postprocedural states (ICD-10) H/O hand surgery ?Z98.890 - Other specified postprocedural states (ICD-10) H/O section ?Z98.891 - History of uterine scar from previous surgery (ICD-10) H/O cervical spine surgery ?Z98.890 - Other specified postprocedural states (ICD-10) History of tonsillectomy and adenoidectomy ?Z90.89 - Acquired absence of other organs (ICD-10) History of carpal tunnel release of both wrists ?Z98.890 - Other specified postprocedural states (ICD-10) H/O: hysterectomy ?Z90.710 - Acquired absence of both cervix and uterus (ICD-10) Kidney transplant recipient ?Z94.0 - Kidney transplant status (ICD-10) Social History Smoking status: Never smoker Meds Home Medications and Allergies Home Medications ?Medication ?Instructions ?Recorded ?Confirmed ?Type OSCAL 11/23/22 History atorvastatin 40 mg tablet 40 mg PO .HS 11/23/22 04/20/23 History dulaglutide 1.5 mg/0.5 mL 1.5 mg subcut QWEEK 11/23/22 04/20/23 History subcutaneous pen injector (Trulicity) empagliflozin 25 mg tablet 25 mg PO DAILY 11/23/22 04/20/23 History (Jardiance) ferrous sulfate 325 mg (65 mg mg 11/23/22 History iron) tablet gabapentin 600 mg tablet mg PO TID 11/23/22 History insulin aspart U-100 100 unit/mL 30 unit subcut TID 11/23/22 04/20/23 History (3 mL) subcutaneous pen (Novolog FlexPen U-100 Insulin aspart) mycophenolate mofetil 500 mg tablet 800 mg PO BID 11/23/22 04/20/23 History sertraline 100 mg tablet 100 mg PO DAILY 11/23/22 04/20/23 History tacrolimus 1 mg capsule, 3 mg PO Q12H 11/23/22 04/20/23 History immediate-release semaglutide 0.25 mg or 0.5 mg (2 0.25 mg subcut QWEEK 04/20/23 04/20/23 History mg/3 mL) subcutaneous pen injector (Ozempic) semaglutide 0.25 mg or 0.5 mg (2 0.25 mg subcut QWEEK 04/20/23 04/20/23 History mg/3 mL) subcutaneous pen injector (Ozempic) naloxone 4 mg/actuation nasal 4 mg intranasal Q2M #2 ea 04/12/24 Rx spray (Narcan) gabapentin 600 mg tablet 600 mg PO QID #120 tabs 09/14/24 Rx oxycodone-acetaminophen 7.5 mg-325 1 tab PO TID PRN pain #90 tabs 10/05/24 Rx mg tablet (Percocet) methocarbamol 500 mg tablet See Rx Instructions .Route 12/07/24 Rx .COMPLEX #180 tabs oxycodone-acetaminophen 7.5 mg-325 1 tab PO TID PRN pain #90 tabs 12/07/24 Rx mg tablet (Percocet) oxycodone-acetaminophen 7.5 mg-325 1 tab PO TID PRN pain #90 tabs 01/08/25 Rx mg tablet (Percocet) oxycodone-acetaminophen 7.5 mg-325 1 tab PO TID PRN pain #90 tabs 02/09/25 Rx mg tablet (Percocet) gabapentin 600 mg tablet 600 mg PO QID #120 tabs 03/08/25 Rx oxycodone-acetaminophen 7.5 mg-325 1 tab PO TID PRN pain #90 tabs 03/08/25 Rx mg tablet (Percocet) Allergies Allergy/AdvReac Type Severity Reaction Status Date / Time No Known Drug Allergies Allergy Verified 01/26/23 10:17 Exam Narrative Exam Narrative: diffuse pain/hyperalgesia Constitutional Documenting provider has reviewed patient's vital signs: yes Common normals: no apparent distress, oriented x3, healthy appearing, alert and well nourished General appearance: cooperative HENIA Common normals: normocephalic, hearing grossly normal bilaterally and moist oral mucous membranes Head and scalp: normocephalic Eye Common normals: PERRL Pupil: PERRL Neck & C-Spine Common normals: full ROM General: normal visual inspection Cervical spine: cervical ROM abnormal and pain with cervical ROM Chest Common normals: inspection of chest normal Respiratory Common normals: normal respiratory effort, no retractions and no use of accessory muscles Back & Pelvis Thoracic spine/upper back: thoracic spinal tenderness and paraspinal muscle tenderness; no paraspinal muscle spasm Lumbar spine/lower back: ROM limited, pain with ROM, lumbar spinal tenderness, paraspinal muscle tenderness, straight leg raise positive right and straight leg raise positive left; no paraspinal muscle spasm Sacroiliac joints: SI joint(s) abnormal Other: altered sensation to bilateral L4,5,S1 pattern strength 4/5 in BLE Extremity Common normals: normal to inspection and full ROM Neuro Common normals: oriented x3 Sensorium/orientation: alert Gait (neuro): antalgic Motor exam: no movement abnormalities noted Psych Common normals: mental status grossly normal, thought process normal, cooperative, affect normal, speech normal and activity/motor behavior normal Speech: normal speech Thought process: normal thought process Results Additional Findings Additional findings: If on a controlled substance or opioids, I have checked an [place]AR[place] report on this patient and there are no aberrancies noted in the prescribing history.??If on a controlled substance or opioid a drug screen was completed and reviewed within the last year, and if there has not been a drug screen completed we ordered one today to monitor higher risk, state monitored pain medication use. As part of providing excellent, safe, comprehensive care, the following was completed at our patient's visit: 1. A medication reconciliation and review to ensure accurate knowledge of current/active medications, including asking our patients to inform us about any [id number] medications or herbal remedies/nutritional supplements/alternative remedies. 2. A review to specifically ensure our patients have had annual screening for screening for depression, screening for tobacco use, and screening for unhealthy alcohol use. For concerning screenings had a discussion with the patient, provided patient education, and recommended follow-up with primary care provider when appropriate. If patient noted with a risk of falling, they received education on strength, gait, and balance training to prevent future risk of falling. Portions of this note may have been carried over from the previous visit and updated as appropriate. Please note this office utilizes paper charting in addition to the electronic medical record. A list of current medications, vitals, and PMH is available there as the clinical staff outside of myself do not have access to [email or web address] charting during the clinic day operations. As part of providing quality comprehensive care the current medications, vitals, and PMH were reviewed in the paper chart. Assessment and Plan Assessment and Plan (1) Lumbar stenosis with neurogenic claudication: (2) Lumbar spondylosis: (3) Encounter for long-term use of opiate analgesic: Assessment and Plan: pt continues to report mild improvement in pain/functional ability, has failed non opioid medications and cannot take NSAIDs due to hx of CKD ?? I reviewed with the patient the potential risks and side effects with the use of? opioid medications including but not limited to respiratory depression,? sedation, and even . Within the last 12 months I have verified the patient has access to naloxone should? these effects occur. The patient was advised to let? their family know they had Naloxone in case they would need to administer? the medication. I advised the patient to avoid the use of any other? sedation substances including alcohol, THC, and benzodiazepines while? taking opioid medications due to the risk of compounding side effects and? detrimental outcomes. within the last 12 months I have reviewed the PRODUCTION GENERALIST, pain treatment agreement and urine drug screen.? ?? A drug screen was completed within the last year, and no aberrancies were noted regarding their use of controlled substances. The patient understands they are subject to the terms and conditions of the pain contract that they have signed. ? ?? I have checked an OARRS report on this patient today and there are no aberrancies noted in the prescribing history.? (4) Myofascial pain: (5) Chronic pain syndrome: Plan dc methocarbamol, not interested in retrialing muscle relaxers at this time. did not find benefit from baclofen continue gabapentin 600mg QID, okay to fill 90 day supply as discussed continue percocet 7.5-325mg TID PRN moderate to severe pain pending evaluation with [facility] narcan previously discussed and prescribed consider referral to [facility] f/u TBD based on NS recommendations
== END 2025-03-08 08:32 | disposition home or self-care (01) ==
LOC: PM 08:31
PROVIDERS: PCP Nurse Practitioner Family; Visit Provider Nurse Practitioner
DX: M48.062 Spinal stenosis, lumbar region with neurogenic claudication (principal); M47.816 Spondylosis without myelopathy or radiculopathy, lumbar region; Z79.891 Long term (current) use of opiate analgesic; M79.18 Myalgia, other site; G89.4 Chronic pain syndrome
CPT/HCPCS: G0463

== ENCOUNTER 2025-05-12 11:13 | Emergency (ER) | payer MEDICARE, SELFPAY ==
--- OUTSIDE RECORDS SUMMARY | 2024-06-26 08:00 | XMS_ITS ---
Author Organization [facility] [place] Address [address] [place] [address] Care Team Providers Care Dry Cleaner Hand Name Role Phone Marycruz Medellin Primary Care Provider Steve JusticedreDylan [phone] REASON FOR VISIT 6 month ov, CKD 2, HTN, albuminuria, Kidney transplant status Encounters Encounter Location Date Provider Diagnosis [facility] [place] [address] [place] [address] 06/26/2024 Dylan Kenny Plan Of Treatment Next Appt Details Provider Name:Dylan Kenny, 09/03/2025 12:00:00 PM, [address] [place], [address], Progress Notes * Lisy FLORESDOB: [birth year] (69 yo F)Acc No.[id number]:06/26/2024 UNLOCKED PROGRESS NOTE Progress Note Patient: Lisy URENA :?Dylan Kenny, MDDOB:1955???Age:68 Y ???Sex:FemaleDate:06/26/2024Phone:[phone]:[facility] [place], [place]-[address]Pcp:OSITO Roberts Subjective: * Chief Complaints: * 1 [...] * Electronic signature of Dylan Kenny MD, [id number] on 05/12/2025 at 12:14 PM EST Sign off status: PendingVisit Status:?CANC (Cancelled) * Provider: Chula Kenny MD Date: 0 06/26/2024 Generated for Printing/Faxing/eTransmitting on:?05/12/2025 12:14 PM EST
--- OUTSIDE RECORDS SUMMARY | 2025-02-19 08:20 | XMS_ITS ---
Author Organization [facility] in [place] Address [address] [place] [address] Care Team Providers Care Warehouse Record Clerk Name Role Phone Marycruz Medellin Primary Care Provider Dylan Pacheco [phone] REASON FOR VISIT CKD 2, HTN, Albuminuria Encounters Encounter Location Date Provider Diagnosis [facility] [address] [place] [address] 02/19/2025 Dylan Kenny Plan Of Treatment Next Appt Details Provider Name:Dylan Kenny, 09/03/2025 12:00:00 PM, [address] [place], [address], Progress Notes * Lisy FLORESDOB: [birth year] (69 yo F)Acc No.[id number]:02/19/2025 UNLOCKED PROGRESS NOTE Progress Note Patient: Lisy URENA :?Dylan Kenny MDDOB:1955???Age:69 Y ???Sex:FemaleDate:02/19/2025Phone:[phone]:[address] [place] [address]Pcp:OSITO Roberts Subjective: * Chief Complaints: * 1 . CKD 2. 2. HTN. 3. Albuminuria. * Medical History: Objective: * Vitals: Assessment: Plan: * Treatment: * * Electronic signature of Dylan Kenny MD, [id number] on 05/12/2025 at 12:14 PM EST Sign off status: PendingVisit Status:?R/S (Rescheduled) * Provider: Chula Kenny MD Date: 0 02/19/2025 Generated for Printing/Faxing/eTransmitting on:?05/12/2025 12:14 PM EST
[2025-05-12 11:14] VITALS: BP 140/96; PULSE 66; TEMP 36.4; O2SAT 99; BMI 32.3
--- NOTE | 2025-05-12 11:39 | ED.BACK1 ---
HPI HPI - Back Pain/Injury General Chief Complaint: Back Pain/Injury Stated Complaint: BACK PAIN Time Seen by Provider: 05/12/25 11:27 Source: patient Mode of arrival: Wheelchair History of Present Illness HPI Narrative: cc - low back pain Patient with history of chronic low back pain and radiation into the right lower extremity presents with an acute flareup that started several days ago. She denied any associated injury or activity that may have caused the pain to worsen. She denied any fever or chills. She denied any urinary symptoms. She denied any flank pain or abdominal pain. She localizes the pain to the low back and radiates into the right buttock and down into the lateral aspect of the right leg. On chart review, I noted that in February the patient saw pain management and there was discussion at that time [facility] of a spinal stimulator. The patient told me that she met with them in March and declined the offer for surgery at this time. The patient told me that she is currently taking Percocet with the last dose at 7 AM. She denied taking any muscle relaxers or steroids at this time. She does take gabapentin daily Related Data Home Medications ?Medication ?Instructions ?Recorded ?Confirmed OSCAL 11/23/22 dulaglutide 1.5 mg/0.5 mL 1.5 mg subcut QWEEK 11/23/22 05/12/25 subcutaneous pen injector (Nish) empagliflozin 25 mg tablet 25 mg PO DAILY 11/23/22 05/12/25 (Jardiance) ferrous sulfate 325 mg (65 mg 325 mg PO BID 11/23/22 05/12/25 iron) tablet insulin aspart U-100 100 unit/mL 30 unit subcut TID 11/23/22 05/12/25 (3 mL) subcutaneous pen (Novolog FlexPen U-100 Insulin aspart) mycophenolate mofetil 500 mg tablet 800 mg PO BID 11/23/22 05/12/25 sertraline 100 mg tablet 100 mg PO DAILY 11/23/22 05/12/25 tacrolimus 1 mg capsule, 3 mg PO Q12H 11/23/22 05/12/25 immediate-release semaglutide 0.25 mg or 0.5 mg (2 0.25 mg subcut QWEEK 04/20/23 05/12/25 mg/3 mL) subcutaneous pen injector (Ozempic) insulin degludec 200 unit/mL (3 60 unit subcut QAM 05/12/25 05/12/25 mL) subcutaneous pen (Tresiba FlexTouch U-200 insulin) pregabalin 75 mg capsule 75 mg PO TID 05/12/25 05/12/25 rosuvastatin 20 mg tablet 20 mg PO QAM 05/12/25 05/12/25 trazodone 150 mg tablet 150 mg PO QPM 05/12/25 05/12/25 Previous Rx's ?Medication ?Instructions ?Recorded naloxone 4 mg/actuation nasal 4 mg intranasal Q2M #2 ea 04/12/24 spray (Narcan) oxycodone-acetaminophen 7.5 mg-325 1 tab PO TID PRN pain #90 tabs 03/08/25 mg tablet (Percocet) methocarbamol 750 mg tablet 750 mg PO Q6H PRN pain #30 tabs 05/12/25 methylprednisolone 4 mg tablets in 4 mg PO DAILY #21 ea 05/12/25 a dose pack (Medrol (Kartik)) Allergies Allergy/AdvReac Type Severity Reaction Status Date / Time No Known Drug Allergies Allergy Verified 01/26/23 10:17 Opioid HPI Opioid Management Most Recent Opioid Data: Last Pain Scale 10 Today, 11:48 Last MAR Pain Assessment Today, 11:48 PFSH PFSH Medical History Upper back pain ?M54.9 - Dorsalgia, unspecified (ICD-10) Carpal tunnel syndrome ?G56.00 - Carpal tunnel syndrome, unspecified upper limb (ICD-10) Neck pain ?M54.2 - Cervicalgia (ICD-10) Low back pain ?M54.50 - Low back pain, unspecified (ICD-10) Obesity ?E66.9 - Obesity, unspecified (ICD-10) Diabetic acetonemia ?E10.10 - Type 1 diabetes mellitus with ketoacidosis without coma (ICD-10) Kidney failure ?N19 - Unspecified kidney failure (ICD-10) Hypertension ?I10 - Essential (primary) hypertension (ICD-10) Surgical History History of cholecystectomy ?Z90.49 - Acquired absence of other specified parts of digestive tract (ICD-10) History of arthroscopy of left shoulder ?Z98.890 - Other specified postprocedural states (ICD-10) H/O hand surgery ?Z98.890 - Other specified postprocedural states (ICD-10) H/O section ?Z98.891 - History of uterine scar from previous surgery (ICD-10) H/O cervical spine surgery ?Z98.890 - Other specified postprocedural states (ICD-10) History of tonsillectomy and adenoidectomy ?Z90.89 - Acquired absence of other organs (ICD-10) History of carpal tunnel release of both wrists ?Z98.890 - Other specified postprocedural states (ICD-10) H/O: hysterectomy ?Z90.710 - Acquired absence of both cervix and uterus (ICD-10) Kidney transplant recipient ?Z94.0 - Kidney transplant status (ICD-10) Social History Smoking status: Never smoker Little interest or pleasure in doing things: not at all Feeling down, depressed, or hopeless: not at all Exam Narrative Exam Narrative: General:Alert, no acute distress, patient resting comfortably Skin:warm, intact, no pallor noted Head:Normocephalic, atraumatic Eye:Normal conjunctiva Respiratory:No acute distress Abdomen:Normal bowel sounds, soft, nontender, no masses detected.No rebound, guarding, or rigidity noted. Back:inspection of the back shows no obvious deformity, no swelling, no ecchymosis, contusion, abrasion, swelling, erythema, fluctuance or induration.Tenderness noted to midline lumbar and right paralumbar areas as well as into the right buttock. Straight leg raise on left is negative.Straight leg raise on right is positive. No CVA tenderness noted bilaterally. Musculoskeletal: Tenderness to palpation along the lateral aspect of the right thigh. No deformity noted to bilateral lower extremities. no cyanosis or mottling noted. normal pulses at DP and PT 2+ bilaterally and symmetrically.Normal 5/5 strength at ankles with dorsiflexion and plantar flexion. Patient is able to ambulate.Normal sensation noted to both lower extremities. Neurological: AAOx4, normal sensory and motor observed.L5-S1 reflexes intact symmetrically.DTR 2+ at patellar bilaterally. Psychiatric:Cooperative and interactive. Constitutional Vital Signs, click to edit/add: Last Vital Signs Temp 97.6 F 05/12/25 11:14 Pulse 66 05/12/25 11:14 Resp 24 H 05/12/25 11:14 BP 140/96 H 05/12/25 11:14 Pulse Ox 99 05/12/25 11:14 O2 Del Method Room Air 05/12/25 11:14 Course Vital Signs Vital signs: Vital Signs Temperature 97.6 F 05/12/25 11:14 Pulse Rate 66 05/12/25 11:14 Respiratory Rate 24 H 05/12/25 11:14 Blood Pressure 140/96 H 05/12/25 11:14 Pulse Oximetry 99 05/12/25 11:14 Oxygen Delivery Method Room Air 05/12/25 11:14 Temperature 97.6 F 05/12/25 11:14 Pulse Rate 66 05/12/25 11:14 Respiratory Rate 24 H 05/12/25 11:14 Blood Pressure 140/96 H 05/12/25 11:14 Pulse Oximetry 99 05/12/25 11:14 Oxygen Delivery Method Room Air 05/12/25 11:14 MDM - Back Pain/Injury MDM Narrative Medical decision making narrative: Patient's last dose of Percocet was at 7 AM. She said it did not help much. Patient was given IM Solu-Medrol and IM Dilaudid in the emergency department along with oral Norflex. Her pain decreased after ED treatment and she was discharged home with prescriptions for medrol dose pack and robaxin to take in addition to the Lyrica and Percocet already prescribed Plan is for the patient to follow-up with pain management and discuss any med changes as well as any further evaluation procedures. Discharge Plan Discharge Chief Complaint: Back Pain/Injury Clinical Impression: Lumbar spondylosis, Lumbar radiculopathy, Chronic pain syndrome Patient Disposition: Home, Self-Care Time of Disposition Decision: 12:34 Prescriptions / Home Meds: New methylprednisolone [Medrol (Kartik)] 4 mg tablets,dose pack 4 mg PO DAILY Qty: 21 0RF methocarbamol 750 mg tablet 750 mg PO Q6H PRN (Reason: pain) Qty: 30 0RF No Action ferrous sulfate 325 mg (65 mg iron) tablet 325 mg PO BID Jardiance 25 mg tablet 25 mg PO DAILY tacrolimus 1 mg capsule 3 mg PO Q12H sertraline 100 mg tablet 100 mg PO DAILY insulin aspart U-100 [Novolog FlexPen U-100 Insulin] 100 unit/mL (3 mL) insulin pen 30 unit subcut TID Trulicity 1.5 mg/0.5 mL pen injector 1.5 mg subcut QWEEK mycophenolate mofetil 500 mg tablet 800 mg PO BID OSCAL Ozempic 0.25 mg or 0.5 mg (2 mg/3 mL) pen injector 0.25 mg subcut QWEEK Rx Instructions: for 4 weeks naloxone [Narcan] 4 mg/actuation spray,non-aerosol 4 mg intranasal Q2M Qty: 2 0RF Rx Instructions: spray 1 dose into ONE nostril; alternate nostrils w each dose until help arrives oxycodone-acetaminophen [Percocet] 7.5-325 mg tablet 1 tab PO TID PRN (Reason: pain) Qty: 90 0RF insulin degludec [Tresiba FlexTouch U-200] 200 unit/mL (3 mL) insulin pen 60 unit SUBCUT QAM pregabalin 75 mg capsule 75 mg PO TID rosuvastatin 20 mg tablet 20 mg PO QAM trazodone 150 mg tablet 150 mg PO QPM Print Language: Algerian Instructions: Lumbar Radiculopathy (ED), Back Pain (ED) Referrals: ALEXANDRIA HOWARD [Primary Care Provider, Unknown] - 1 week
[2025-05-12] MEDS: HYDROMORPHONE HCL 1 MG/ML CARTRIDGE IM (11:48)
[2025-05-12] MEDS: ORPHENADRINE CITRATE 100 MG TABLET.ER PO (11:48)
[2025-05-12] MEDS: METHYLPREDNISOLONE SOD SUCC PF 125 MG/2 ML VIAL IM (11:49)
--- OUTSIDE RECORDS SUMMARY | 2025-05-12 12:14 | XMS_ITS | Clinical Summary ---
Author Organization [facility] Healthcare Address [address] [place] [address] Care Team Providers Care Cash Applications Clerk Name Role Phone Unavailable Primary Care Provider Unavailabl e Social History Tobacco UseTypesPacks/DayYears UsedDateSmoking Tobacco: Never Assessed CommentsUnknownSex and Gender InformationValueDate RecordedSex Assigned at Not on fileLegal OszJdingv13/15/2023 7:25 PM EDTGender IdentityNot on fileSexual OrientationNot on file Last Filed Vital Signs Vital SignReadingTime TakenCommentsBlood Ezznegxg728/7606 12:00 PM EDT Pulse--Temperature--Respiratory Rate--Oxygen Saturation--Inhaled Oxygen Concentration--Jcfqgd846 kg (221 lb)09/03/2020 12:00 PM NZYJpcpbj514.6 cm (5' 6 )09/03/2020 12:00 PM EDTBody Mass Index35.67009/03/2020 12:00 PM EDT Plan of Treatment Not on file Insurance
--- OUTSIDE RECORDS SUMMARY | 2025-05-12 12:14 | XMS_ITS | Clinical Summary ---
Author Organization [facility] Address [address] [place] [address] Care Team Providers Care Hair Boiler Name Role Phone Unavailable Primary Care Provider Unavailabl e Social History Tobacco UseTypesPacks/DayYears UsedDateSmoking Tobacco: Never Assessed CommentsUnknownSex and Gender InformationValueDate RecordedSex Assigned at Not on fileLegal DyqCctevg33/29/2022 10:49 PM EDTGender IdentityNot on file Sexual OrientationNot on file Plan of Treatment Health MaintenanceDue DateLast DoneCommentsCT Pmqhahbgjdht75/05/1955Diabetes: Hemoglobin A1C1954FIT-DNA1954FIT1954FOBT1954 Hbmqwqfmkmhkq84/05/1955Diabetes: Retinopathy Hpeysdxba57/05/1965Depression Vzmrvivoz52/05/1967Diabetes: Urine Protein Gsasrmzup22/05/1974Zoster Vaccines (1 of 2)1973Adult Zlankrb1609/16/1976Fall Risk Tnzkmsggs61/05/2020Pneumococcal Vaccine: 50+ Years (4 of 4 - PCV20 or PCV21), 04/19/2013, 02/10/2012COVID-19 Vaccine (4 - 2024- season)5010/07/2020, 09/06/2020, 08/09/2020Influenza Vaccine (#1), 04/06/2023, 04/24/2020, Additional history xyfasfJhwbckmqz08/08/202511/6162Ajiintwknvb19/31/2034 07/14/2023olorectal Cancer Tzjqfhtss63/31/2034HIB VaccinesAged Out07/16/2004No longer eligible based on patient's age to complete this topicHPV VaccinesAged OutNo longer eligible based on patient's age to complete this topicIPV Vaccines Aged OutNo longer eligible based on patient's age to complete this topic Meningococcal B VaccineAged OutNo longer eligible based on patient's age to complete this topicMeningococcal VaccineAged OutNo longer eligible based on patient's age to complete this topicRotavirus VaccinesAged OutNo longer eligible based on patient's age to complete this topic
--- OUTSIDE RECORDS SUMMARY | 2025-05-12 12:14 | XMS_ITS | Clinical Summary ---
Author Organization VeedMe tem Address [facility] [address] [place] [address] Care Team Providers Care Wire Coiler Machine Operator Name Role Phone Carrie Reddy Tomi CARRION-CONFIGURATION MANAGEMENT MANAGER Primary Care Provider + Allergies No known active allergies Medications MedicationSigDispense QuantityRefillsLast FilledStart DateEnd DateStatus tacrolimus (PROGRAF) 1 mg capsule Take 2 capsules (2 mg total) by mouth in the morning and 2 capsules (2 mg total) at noon and 2 capsules (2 mg total) in the evening.Active flash glucose scanning reader (FREESTYLE LISY 14 DAY READER) [facility] Active flash glucose sensor (FREESTYLE LISY 14 DAY SENSOR) kit Active alcohol swabs pads, medicated Active OZEMPIC 2 mg/dose (8 mg/3 mL) pen injector 02/19/2022ctive pen needle, diabetic (BD ULTRA-FINE MINI PEN NEEDLE) 31 gauge x 3/16 needle Active aspirin 81 mg Active empagliflozin (JARDIANCE) 10 mg tablet tablet Active mycophenolate (CELLCEPT) 250 mg capsule Active gabapentin (NEURONTIN) 600 mg tablet Indications:Radiculopathy due to lumbar intervertebral disc disorderTake 1 tablet (600 mg total) by mouth in the morning and 1 tablet (600 mg total) at noon and 1 tablet (600 mg total) in the evening and 1 tablet (600 mg total) before bedtime. 360 tablet 04/06/2023ctive Saccharomyces boulardii (FLORASTOR) 250 mg capsule Indications:Diabetic polyneuropathy associated with type 2 diabetes mellitus (CMS-HCC)Take 1 capsule (250 mg total) by mouth Daily at 0300. 90 capsule ctive insulin degludec (TRESIBA FLEXTOUCH U-100) 100 unit/mL (3 mL) insulin pen Inject 60 Units under the skin nightly.Active cyclobenzaprine (FLEXERIL) 10 mg tablet Take 1 tablet (10 mg total) by mouth as needed in the morning and 1 tablet (10 mg total) as needed at noon and 1 tablet (10 mg total) as needed in the evening. 5Active oxyCODONE-acetaminophen (PERCOCET) 7.5-325 mg per tablet Take 1 tablet by mouth as needed in the morning and 1 tablet as needed at noon and 1 tablet as needed in the evening for pain.5Active traZODone (DESYREL) 150 mg tablet Take 1 tablet (150 mg total) by mouth nightly. 90 tablet 5Active rosuvastatin (CRESTOR) 20 mg tablet Take 1 tablet (20 mg total) by mouth in the morning. 90 tablet 5Active sertraline (ZOLOFT) 100 mg tablet Take 1 tablet (100 mg total) by mouth in the morning. 90 tablet 5Active diclofenac sodium-menthoL 1.5-10 % combo pack Apply 1 Application topically in the morning and 1 Application at noon and 1 Application in the evening and 1 Application before bedtime. 239 mL 5Active ferrous sulfate 325 (65 FE) MG tablet Indications:Anemia, unspecifiedTake 1 tablet (325 mg total) by mouth in the morning and 1 tablet (325 mg total) in the evening. Take with meals. 180 tablet 5Active Active Problems ProblemNoted DateDiagnosed DateObesity, rvzkie2105/19/20227154Nabxdspa50/05/2022 Chronic back pain05/18/20220577Hffxiio27/05/2022ersonal history of colonic polyps 08/15/2020 Overview (03/14/2024): Replacing Diagnosis that were inactivated after 03/14 regulatory import Hiimbdbninlad80/31/2018Diabetic fbkqexzwpp11/31/2420Unnzqcrkbezp24/25/2018 Herniated lumbar intervertebral disc09/06/20157851Zecuppjhkgomujhsn12/29/2013History of kidney mpynlxoavo58/28/2013Mixed ixckzagyajqewi35/15/2013DM (diabetes mellitus)03/28/2013Essential enowwwloccwa03/15/2013 Resolved Problems ProblemNoted DateDiagnosed DateResolved DateRenal cell lmcmcuqwc37/15/2013 05/19/2022 Encounters DateTypeDepartmentCare CfptPorrpoygwep63/11/2025Results Follow-Up [facility] [address] [place] [address] Carrie Reddy, BLANKET WEAVER-CONFIGURATION MANAGEMENT MANAGER CBC without diff02/22/2025Travelfrom Last 3 Months Immunizations ImmunizationAdministration DatesNext DueCOVID-19, mRNA, LNP-S, PF, 100mcg/0.5mL Dose10/07/2020,09/06/2020,1DTaP / HIB07/16/2004Influenza (IM) Preservative Free04/10/2016Influenza Vaccine, Quadrivalent, Gqlheebfzo84/24/2023 Influenza, High-dose, Onarildabfnr68/11/2020Influenza, Im Trivalent Preservative 04/14/2015Influenza, Injectable, Mdck, Preservative Free, Quad05/28/2017 Influenza, Trivalent, Lbjdfdefzs50/31/2024Pneumococcal Conjugate 13-Valent 09/24/2015Pneumococcal Ggrwxchzglwyyr35/06/2013,02/10/2012 Family History Medical HistoryRelationNameCommentsCoronary artery diseaseBrother 1Diabetes Brother 1Back ProblemsBrother 2Coronary artery diseaseFatherDiabetesFatherStroke FatherCoronary artery diseaseMotherDiabetesMotherHypertensionMotherBreast cancer Neg HxRelationNameStatusCommentsBrother 1Brother 2AliveFatherMother Social History Tobacco UseTypesPacks/DayYears UsedDateSmoking Tobacco: NeverSmokeless Tobacco: NeverAlcohol UseStandard Drinks/WeekCommentsNever0 (1 standard drink = 0.6 oz pure alcohol)[facility] UtilitiesAnswerDate RecordedIn the past 12 months has the [employer], gas, oil, or water company threatened to shut off services in your home?No12/12/2024Social Connection and Isolation PanelAnswerDate RecordedIn a typical week, how many times do you talk on the phone with family, friends, or neighbors?More than three times a week12/12/2024How often do you get together with friends or relatives?Three times a week12/12/2024How often do you attend confucianist or scientologist services?More than 4 times per year12/12/2024Do you belong to any clubs or organizations such as confucianist groups, unions, fraternal or athletic groups, or school groups?No12/12/2024How often do you attend meetings of the clubs or organizations you belong to?Never12/12/2024re you , , , , never , or living with a partner? 12/12/2024UDIT-CAnswerDate RecordedQ1: How often do you have a drink containing alcohol?Never12/12/2024Q2: How many drinks containing alcohol do you have on a typical day when you are drinking?Patient does not drink12/12/2024Q3: How often do you have six or more drinks on one occasion?Never12/12/2024Overall Financial Resource Strain (CARDIA)AnswerDate RecordedHow hard is it for you to pay for the very basics like food, housing, medical care, and heating?Not hard at all 11/03/2022HQ-2AnswerDate RecordedTotal Dfoqk019Finintermountain medical center [place] of Occupational Health - Occupational Stress QuestionnaireAnswerDate RecordedDo you feel stress - tense, restless, nervous, or anxious, or unable to sleep at night because yourmind is troubled all the time - these days?Only a viibnu4712/12/2024 Exercise Vital SignAnswerDate RecordedOn average, how many days per week do you engage in moderate to strenuous exercise (like a brisk walk)?0 days12/12/2024On average, how many minutes do you engage in exercise at this level?0 min 12/12/2024PRAPARE - TransportationAnswerDate RecordedIn the past 12 months, has lack of transportation kept you from medical appointments or from getting medications?No11/03/2022In the past 12 months, has lack of transportation kept you from meetings, work, or from getting things needed for daily living?No 11/03/2022Housing InstabilityAnswerDate RecordedAre you worried or concerned that in the next two months you may not have stable housing that you own, rent or stay in as a part of a household?No11/03/2022hildcareAnswerDate RecordedDo problems getting child monitor make it difficult for you to work or study?No 11/03/2022EmploymentAnswerDate RecordedDo you need help finding a local career center and/or a training program?No11/03/2022Hunger ScreeningAnswerDate Recorded Within the past 12 months we worried whether our food would run out before we got money to buy more.Never True12/12/2024Within the past 12 months the food we bought just didn't last and we didn't have money to get more.Never True 12/12/2024Purpose - LifeAnswerDate RecordedI have a purpose and direction in my life.Strongly Agree11/03/2022CommentsNoSex and Gender InformationValue Date RecordedSex Assigned at BirthNot on fileLegal HsqLtvrup66/06/2015 11:32 AM EDTGender IdentityNot on fileSexual OrientationNot on file Last Filed Vital Signs Vital SignReadingTime TakenCommentsBlood Mzzfrwrz484/8007 9:48 AM EDT Taiws693208/10/2024 1:24 PM WIORbhrvzzdeoz32.2 ??C (97.2 ??F)07/13/2024 2:32 PM ESTRespiratory Jeov0926 10:42 AM EDTOxygen Ibtgdtjvgd05%07/13/2024 2:32 PM ESTInhaled Oxygen Concentration--Unxdxh37.5 kg (199 lb 9.6 oz)12/12/2024 9:48 AM QENTtosmz405.6 cm (5' 4 )12/12/2024 9:48 AM EDTBody Mass Index34.26012/12/2024 9:48 AM EDT Plan of Treatment DateTypeDepartmentCare Team (Latest Contact Info)Vqulcmchivv24/02/2026 10:00 AM EDTOffice Visit [facility] [address] [place] [address] Health MaintenanceDue DateLast DoneCommentsDiabetic Foot Exam1972Zoster (Shingles) Vaccine (1 of 2)1973DTaP,Tdap and Td Vaccines (2 - Tdap) Diabetic Ophthalmology Exam/, 03/26/2022 Gbgcxjius89/01/2023, 02/21/2018Influenza Zaoelao19, 04/06/2023, 04/24/2020, Additional history existsAdult BMI Follow Up Plan Statin Use: Dtrawiyt26dult BMI Screening /06/2024Depression Mvogpmvbl54Fall Risk Screening Medicare Annual Wellness Visit/06/2024, 11/03/2022Tobacco Hjgptpsaj54RSV ( or age 60+ yrs) (1 - 1-dose 75+ series)2029COVID-19 UlemdsvDuetgxpmxdym29/26/2021, 09/06/2020, 08/09/2020 Medical Devices Not on file Procedures Procedure NamePriorityDate/TimeAssociated DiagnosisCommentsBASIC METABOLIC PANEL Xwfuemt7502/22/2025 9:34 AM EDT Kidney transplant status CBC (NO DIFF)Xgokjbc2102/22/2025 9:34 AM EDT Kidney transplant status JXYSKYHPTLrcawoj43/11/2025 9:34 AM EDT Kidney transplant status IJDIPTWWgehkru44/11/2025 9:34 AM EDT Kidney transplant status VITAMIN D 25 BYMWHSDJaffeuu87/11/2025 9:34 AM EDT Kidney transplant status PARATHYROID HORMOME, EMMUMTEjhwfqf57/11/2025 9:34 AM EDT Kidney transplant status ZPUHCKSXGLHgbfeiw17/11/2025 9:34 AM EDT Kidney transplant status TACROLIMUS, OCajujus00/11/2025 9:34 AM EDT Kidney transplant status TIDZWUMYIUStltitf25/11/2025 9:33 AM EDT Kidney transplant status MICROALBUMIN / CREATININE URINE HIGHVYjslqli42/11/2025 9:33 AM EDT Kidney transplant status MAMM SCREENING BILATERAL W SERKideylt33/08/2023 10:34 AM EST Encounter for screening mammogram for malignant neoplasm of breast HM DIABETES EYE ZDCVScrfbkh44/27/2022from Last 3 Months or Most Recently Relevant to Health Maintenance Results * (ABNORMAL) Tacrolimus, B (02/22/2025 9:34 AM EDT)ComponentValueRef RangeTest MethodAnalysis TimePerformed AtPathologist SignatureTACROLIMUS, B4.1(L)5.0- 15.0 (Trough) ng/mL02/23/2025 2:23 PM EDJOE DIMAGGIO [facility] LABORATORIESComment: ADDITIONAL INFORMATION Target steady-state trough concentrations vary depending on the type of transplant, concomitant immunosuppression, clinical/institutional protocols, and time post-transplant. Results should be interpreted in conjunction with this clinical information and any physical signs/symptoms of rejection/toxicity. Testing performed by Liquid Chromatography-Tandem Mass Spectrometry (LC-MS/MS). This test was developed and its performance characteristics determined by [facility] in a manner consistent with CLIA requirements. This test has not been cleared or approved by the U.S. Food and Drug Administration. Test Performed by: [address] [address] Plant Changer: Buddy Ballard Ph.D.; CLIA# [id number] Specimen (Source)Anatomical Location / LateralityCollection Method / Volume Collection TimeReceived TimeBloodVenous blood / UnknownVenipuncture / Unknown 02/22/2025 9:34 AM EDT02/22/2025 9:34 AM EDT Narrative Authorizing ProviderResult TypeResult StatusDylan JENNINGS BLOOD ORDERABLES Final ResultPerforming OrganizationAddressCity/State/ZIP CodePhone Number [facility] [address] [place] [address], * Parathyroid Hormone, intact (02/22/2025 9:34 AM EDT)ComponentValueRef Range Test MethodAnalysis TimePerformed AtPathologist SignaturePTH GZXEJX0471 - 88 pg/mL02/22/2025 3:[address] [facility] LABORATORYSpecimen (Source)Anatomical Location / LateralityCollection Method / VolumeCollection TimeReceived TimeBloodVenous blood / UnknownVenipuncture / Unhxlrk6602/22/2025 9:34 AM EDT02/22/2025 9:34 AM EDT Narrative Authorizing ProviderResult TypeResult StatusDylan JENNINGS BLOOD ORDERABLES Final ResultPerforming OrganizationAddressCity/State/ZIP CodePhone Number [facility] [address] [place] [address], * Vitamin D 25 hydroxy (02/22/2025 9:34 AM EDT)ComponentValueRef RangeTest MethodAnalysis TimePerformed AtPathologist SignatureVITAMIN D 25 HYD TOT31.7 30.0 - 100.0 ng/mL02/22/2025 3:[address] [facility] Specimen (Source)Anatomical Location / LateralityCollection Method / Volume Collection TimeReceived TimeBloodVenous blood / UnknownVenipuncture / Unknown 02/22/2025 9:34 AM EDT02/22/2025 9:34 AM EDT Narrative [facility] - 02/22/2025 3:26 PM EDT Vitamin D status 25 [place] Vitamin D Deficiency <20 ng/mL Insufficiency ? 20-29 ng/mL Sufficiency ? 30-100 ng/mL Toxicity >100 ng/mL NOTE: A pediatric reference range has not been established by the rehabilitation services manager of this kit. The [place] [employer] recommends a Vitamin D level of = or >20ng/mL in infants and children. Authorizing ProviderResult TypeResult StatusDylan JENNINGS BLOOD ORDERABLES Final ResultPerforming OrganizationAddressCity/State/ZIP CodePhone Number [facility] [address] [place] [address], * (ABNORMAL) CBC without diff (02/22/2025 9:34 AM EDT)ComponentValueRef Range Test MethodAnalysis TimePerformed AtPathologist SignatureWBC5.54 - 11 x10E9/L 02/22/2025 1:[address] [facility] LABORATORYRBC Count4.903.8 - 5.2 X10E12/L02/22/2025 1:[address] [facility] Pmmmzgqmht41.311.7 - 15.5 g/dL02/22/2025 1:[address] [facility] OUZJKQBPHXCozjudxvgy28.735 - 47 %02/22/2025 1:[address] [facility] PZHTMNMKZWPKI5180 - 100 fL02/22/2025 1:[address] [facility] INAKXZJSRKFOW03.127 - 34 pg02/22/2025 1:[address] [facility] CVXNPFJSTUHAFX91.632 - 36 g/dL02/22/2025 1:[address] [facility] LAMSGWEJSPKDH68.111.5 - 15 %02/22/2025 1:[address] LABORATORYPlatelet Cngvg029(L)150 - 450 X10E9/L02/22/2025 1:49 PM EDT [facility] ASXTYBNZOTIZB07.67 - 12 fL02/22/2025 1:49 PM EDT [facility] LABORATORYSpecimen (Source)Anatomical Location / LateralityCollection Method / VolumeCollection TimeReceived TimeBloodVenous blood / UnknownVenipuncture / Fiqtrzk5302/22/2025 9:34 AM EDT02/22/2025 9:34 AM EDT Narrative Authorizing ProviderResult TypeResult StatusDylan JENNINGS BLOOD ORDERABLES Final ResultPerforming OrganizationAddressCity/State/ZIP CodePhone Number [facility] [address] [place] [address], * Phosphorus (02/22/2025 9:34 AM EDT)ComponentValueRef RangeTest MethodAnalysis TimePerformed AtPathologist SignaturePHOSPHORUS3.72.4 - 4.9 mg/dL02/22/2025 3:[address] [facility] LABORATORYSpecimen (Source)Anatomical Location / LateralityCollection Method / VolumeCollection TimeReceived Time BloodVenous blood / UnknownVenipuncture / Zjtlnfs3002/22/2025 9:34 AM EDT 02/22/2025 9:34 AM EDT Narrative Authorizing ProviderResult TypeResult StatusDylan JENNINGS BLOOD ORDERABLES Final ResultPerforming OrganizationAddressCity/State/ZIP CodePhone Number [address] [place] [address], * Magnesium (02/22/2025 9:34 AM EDT)ComponentValueRef RangeTest MethodAnalysis TimePerformed AtPathologist SignatureMAGNESIUM2.01.8 - 2.6 mg/dL02/22/2025 3:[address] [facility] LABORATORYSpecimen (Source)Anatomical Location / LateralityCollection Method / VolumeCollection TimeReceived Time BloodVenous blood / UnknownVenipuncture / Qqxosuh4002/22/2025 9:34 AM EDT 02/22/2025 9:34 AM EDT Narrative Authorizing ProviderResult TypeResult StatusDylan JENNINGS BLOOD ORDERABLES Final ResultPerforming OrganizationAddressCity/State/ZIP CodePhone Number [facility] [address] [place] [address], [place] [phone] * Albumin (02/22/2025 9:34 AM EDT)ComponentValueRef RangeTest MethodAnalysis TimePerformed AtPathologist SignatureALBUMIN4.23.2 - 5.3 g/dL02/22/2025 3:[address] [facility] LABORATORYSpecimen (Source)Anatomical Location / LateralityCollection Method / VolumeCollection TimeReceived TimeBloodVenous blood / UnknownVenipuncture / Sgrfcoj2302/22/2025 9:34 AM EDT02/22/2025 9:34 AM EDT Narrative Authorizing ProviderResult TypeResult StatusJohn Parker Kenny MDLAB BLOOD ORDERABLES Final ResultPerforming OrganizationAddressCity/State/ZIP CodePhone Number [facility] [address] [place] [address], [place] [phone] * (ABNORMAL) Basic Metabolic Panel (02/22/2025 9:34 AM EDT)ComponentValueRef RangeTest MethodAnalysis TimePerformed AtPathologist DnamvhfmtKAAJTD666941 - 146 mmol/L02/22/2025 3:[address] LABORATORYPOTASSIUM 4.23.5 - 5.0 mmol/L02/22/2025 3:[address] [facility] YLNWAXZF16801 - 109 mmol/L02/22/2025 3:[address] [facility] LABORATORYCARBON FTZPXRH6463 - 32 mmol/L02/22/2025 3:[address] [facility] LABORATORYANION TKL615 - 15 mmol/L02/22/2025 3:[address] [facility] LABORATORYBLOOD UREA HAVRUHKL842 - 27 mg/dL02/22/2025 3:[address] [facility] LABORATORYCREATININE0.710.40 - 1.00 mg/dL 02/22/2025 3:[address] LABORATORYComment:METHOD TRACEABLE TO IDMS ABYWZTZDCQJMNEI441(H)65 - 99 mg/dL02/22/2025 3:41 PM EDT [facility] LABORATORYCALCIUM9.18.5 - 10.5 mg/dL02/22/2025 3:[address] [facility]ORYEGFR Non-Race Dependent>90>=60 ml/min/1.73sq.m002/22/2025 3:[address] [facility] Comment: Reported eGFR is based on the CKD-EPI 2020 equation that does not use a race coefficient. Specimen (Source)Anatomical Location / LateralityCollection Method / Volume Collection TimeReceived TimeBloodVenous blood / UnknownVenipuncture / Unknown 02/22/2025 9:34 AM EDT02/22/2025 9:34 AM EDT Narrative Authorizing ProviderResult TypeResult StatusDylan JENNINGS BLOOD ORDERABLES Final ResultPerforming OrganizationAddressCity/State/ZIP CodePhone Number [facility] [address] [place] [address], * (ABNORMAL) Microalbumin - Albumin: Creatinine Urine Ratio (02/22/2025 9:33 AM EDT)ComponentValueRef RangeTest MethodAnalysis TimePerformed AtPathologist SignatureURINE CREATININE,RDM45.93mg/dL02/22/2025 4:[address] LABORATORYMALB/CREAT NXMOS757.8(H)0.0 - 30.0 mg/g002/22/2025 4:08 PM EDT [facility] LABORATORYMICROALBUMIN, URINE6.1(H)0.0 - 1.9 mg/dL 02/22/2025 4:[address] [facility] LABORATORYSpecimen (Source) Anatomical Location / LateralityCollection Method / VolumeCollection Time Received TimeUrineUrine specimen collection, clean catch / UnknownCollection / Drzrcwn5702/22/2025 9:33 AM EDT02/22/2025 9:33 AM EDT Narrative Authorizing ProviderResult TypeResult StatusDylan CHAN ORDERABLES Final ResultPerforming OrganizationAddressCity/State/ZIP CodePhone Number [facility] [address] [place] [address], * (ABNORMAL) Urinalysis (02/22/2025 9:33 AM EDT)ComponentValueRef RangeTest MethodAnalysis TimePerformed AtPathologist SignatureCOLORYellowYellow 02/22/2025 2:[address] LABORATORYTURBIDITYClearClear 02/22/2025 2:[address] [facility] LABORATORYSPECIFIC GRAVITY1.035 1.003 - 1.9224802/22/2025 2:[address] [facility] LABORATORYNITRITE RszesrzqIbhjyynl52/11/2025 2:[address] [facility] PH,URINE5.05.0 - 8.509 2:[address] [facility] LEUKOCYTE FBFAXMLAJfpqyomiUmejcwki89/11/2025 2:[address] [facility] LABORATORYComment:High Concentrations of Glucose May Decrease the Reactivity of the Dipstick Leukocyte Test Pad.PROTEINNegativeNegative 02/22/2025 2:[address] [facility] LABORATORYKETONES (URINE) EbqrcgxjUhqnnyjo01/11/2025 2:[address] [facility] UROBILINOGEN<1.1 eu/dL<1.1 eu/dL02/22/2025 2:[address] [facility] LABORATORYBILIRUBIN (URINE)SxkmblnkFxckdacf34/11/2025 2:[address] [facility] LABORATORYBLOOD/MNDIijzvneoCbopkpyo41/11/2025 2:47 PM EDT [facility] LABORATORYGLUCOSE (URINE)>1000 mg/dL(A)Negative 02/22/2025 2:[address] [facility] LABORATORYSpecimen (Source) Anatomical Location / LateralityCollection Method / VolumeCollection Time Received TimeUrineUrine / UnknownCollection / Lnbgzgk2402/22/2025 9:33 AM EDT 02/22/2025 9:33 AM EDT Narrative [facility] - 02/22/2025 2:47 PM EDT Urine received without preservative. Delays in transport may affect results. Interpret with caution. A clinical correlation is recommended. Authorizing ProviderResult TypeResult StatusJohn Parker CHAN ORDERABLES Final ResultPerforming OrganizationAddressCity/State/ZIP CodePhone Number [facility] [address] [place] [address], [place] [phone] * Mammography screening bilateral with CAD (04/21/2023 10:34 AM EST)Anatomical RegionLateralityModalityBreastBilateralMammographySpecimen (Source)Anatomical Location / LateralityCollection Method / VolumeCollection TimeReceived Time 04/22/2023 9:13 AM EST Narrative 04/22/2023 9:29 [...] density: The breasts are almost entirely fatty. ?? No suspicious calcifications, masses or architectural distortion. There is a stable nodule in the inner aspect of the left breast, only definitively seen on the cc view. IMPRESSION: * ?? No mammographic evidence of malignancy. ASSESSMENT- BI-RADS [...] 9:29 AM 2 a MAMM 1 YR Authorizing ProviderResult TypeResult Randi Dixons BLANKET WEAVER-FNPIMG MAMMOGRAPHY ORDERABLESFinal Result * DIABETES EYE EXAM (04/09/2022) Narrative Authorizing ProviderResult TypeResult StatusNot In System Ref ProvHEALTH MAINTENANCEFinal ResultPerforming OrganizationAddressCity/State/ZIP CodePhone Number MANUALLY TRANSCRIBED RESULTS from Last 3 Months or Most Recently Relevant to Health Maintenance Insurance Care Teams Team MemberRelationshipSpecialtyStart DateEnd Date Carrie Reddy, BLANKET WEAVER-CONFIGURATION MANAGEMENT MANAGER [address] [place] [address] PCP - GeneralFamily Medicine02/16/24
--- OUTSIDE RECORDS SUMMARY | 2025-05-12 12:14 | XMS_ITS | Clinical Summary ---
Author Organization [facility]AD[facility]ielle Address [address], [address] [place] [address] Care Team Providers Care Forge Tender Name Role Phone Mariam Cowart APRN - DILLAN Primary Care Provide r Allergies No known active allergies Medications MedicationSigDispense QuantityRefillsLast FilledStart DateEnd DateStatus oxyCODONE-acetaminophen (PERCOCET) 10-325 MG per tablet Take 1 tablet by mouth three times daily.Active gabapentin (NEURONTIN) 600 MG tablet Take 600 mg by mouth 3 times daily.Active Insulin Glargine (LANTUS SC) Inject 40 Units into the skinActive atorvastatin (LIPITOR) 40 MG tablet Take 40 mg by mouth dailyActive Family History Medical HistoryRelationNameCommentsDiabetesFatherHeart DiseaseFatherStrokeFather ArthritisMotherDiabetesMotherHeart DiseaseMotherStrokeMotherRelationNameStatus CommentsFatherMother Social History Tobacco UseTypesPacks/DayYears UsedDateSmoking Tobacco: Never AssessedSmokeless Tobacco: NeverCommentsUnknownSex and Gender InformationValueDate RecordedSex Assigned at BirthNot on fileLegal ZhfRlntsf09/10/2013 4:16 PM EST Gender IdentityNot on fileSexual OrientationNot on file Last Filed Vital Signs Vital SignReadingTime TakenCommentsBlood Pressure--Pulse--Yqxzyndyyzu55.4 ??C (97.6 ??F)07/07/2019 2:42 PM ESTRespiratory Rate--Oxygen Saturation--Inhaled Oxygen Concentration--Hcgzwc44.8 kg (220 lb)07/07/2019 2:42 PM WARWaamxj388.6 cm (5' 4 )07/07/2019 2:42 PM ESTBody Mass Index37.76007/07/2019 2:42 PM EST Plan of Treatment Not on file Insurance Care Teams Team MemberRelationshipSpecialtyStart DateEnd Mariam Cowart APRN - DILLAN [address] [place] [address] PCP - [facility]09/10/12
--- OUTSIDE RECORDS SUMMARY | 2025-05-12 12:14 | XMS_ITS | Clinical Summary ---
Author Organization [facility] Address [facility] [place] [id number] Care Team Providers Care Mushroom Cutter Name Role Phone Altagracia Arriola Primary Care Provider [phone] Domi Smith CONSTRUCTION MILLWRIGHT Unavailable Qiana Chiu CONSTRUCTION MILLWRIGHT Unavailable Heaven Ramos CONSTRUCTION MILLWRIGHT Unavailable [phone] Allergies No known active allergies Medications MedicationSigDispense QuantityRefillsLast FilledStart DateEnd DateStatus mycophenolate mofetil (CELLCEPT) 250 mg capsule 02/02/2022ctive tacrolimus IR (PROGRAF) 1 mg capsule Take 2 mg by mouth.02/23/2022ctive gabapentin (NEURONTIN) 600 mg tablet Take 600 mg by mouth.04/06/2023ctive atorvastatin (LIPITOR) 40 mg tablet Take 1 tablet by mouth once daily.08/07/2014ctive sertraline (ZOLOFT) 100 mg tablet Take 100 mg by mouth.12/13/2024tive ferrous sulfate 325 mg (65 mg iron) tablet Take 325 mg by mouth.06/20/2020ctive insulin aspart U-100 (NOVOLOG) 100 unit/mL Inject subcutaneously.Active TRESIBA FLEXTOUCH U-200 200 unit/mL (3 mL) injection 02/04/2025tive OZEMPIC 2 mg/dose (8 mg/3 mL) pen injector 02/19/2022ctive empagliflozin (JARDIANCE) 25 mg tablet Take 25 mg by mouth daily with breakfast.Active pregabalin (LYRICA) 75 mg capsule Indications:Spinal stenosis, lumbar region with neurogenic claudicationTake 1 capsule by mouth three times a day for 90 days. 90 capsule /5Active Encounters DateTypeDepartmentCare QanmDuzczlpsnyp01/29/2025 1:00 PM EDTOffice Visit Neurosurgery [address] [place] [id number] Andrea Gu MD Spinal stenosis, lumbar region with neurogenic claudication (Primary Dx) 03/12/2025Travelfrom Last 3 Months Social History Tobacco UseTypesPacks/DayYears UsedDateSmoking Tobacco: NeverPassive Smoke Exposure: NeverSmokeless Tobacco: Never Tobacco Cessation:Counseling Given: Not Answered Area Deprivation IndexAnswerDate RecordedNational Score (1-100), lower number is lower byxb195303/12/2025State Score (1-10), lower number is lower ccxj25703/12/2025 Data from: https://www.neighborhoodatlas.medicine.[facility].edu/. Last address used for q[address]tzv[address]03/12/2025CommentsUnknownSex and Gender InformationValueDate RecordedSex Assigned at BirthNot on fileLegal SexFemale 07/14/2021 1:41 PM ESTGender IdentityNot on fileSexual OrientationNot on file Last Filed Vital Signs Vital SignReadingTime TakenCommentsBlood Bewfggqr863/7709 1:00 PM EDT Hwqqo155603/12/2025 1:00 PM EDTTemperature--Respiratory Rate--Oxygen Rqtqwhmyic38% 03/12/2025 1:00 PM EDTInhaled Oxygen Concentration--Grutmn84.7 kg (206 lb 9.1 oz)03/12/2025 1:00 PM VEUHhxgtl076.7 cm (5' 5.25 )03/12/2025 1:00 PM EDTBody Mass Index34.1109 1:00 PM EDT Plan of Treatment Health MaintenanceDue DateLast DoneCommentsCervical Cancer Sbqmlmgak91/05/1966 Anxiety Vohdobkjs17/05/1973Depression Cfevttehi73/05/1973Hepatitis C Screening 1972Shingrix Vaccine (1 of 2)1973CT Hcxgzfahtyjz16/05/2000Cologuard (FIT-DNA)09/17/19991656Jqjslohkcmy65/05/2000Colorectal Cancer Hyoseywxm44/05/2000 Fecal Occult Blood09/17/19999498Piibevdodcbzz54/05/2000DTaP,Tdap,Td Vaccine (2 - Tdap)/07/2004RSV Vaccine (1 - Risk 60-74 years 1-dose series) 2014Pneumococcal Vaccine: 50+ (4 of 4 - PCV20 or PCV21)09/23/2020 09/24/2015, 04/19/2013, 02/10/2012Mammogram Mcuocgddn45, 04/21/2023, 02/21/2018Advance Directive Kxvcijwyxn17/01/2025Medicare Advantage Annual Wellness Visit06/14/2024ovid-19 Vaccine (4 - 2024- season)2025 10/07/2020, 09/06/2020, 08/09/2020Influenza Vaccine (#1), 04/06/2023, 04/24/2020, Additional history existsDiabetes Oqcxfhlui90/11/2028 02/22/2025, 08/17/2024, 04/13/2024, Additional history existsLipid Screening 91, 02/24/2023, 08/03/2022, Additional history existsBone Density SmaqglevlUisoworvh02/16/2019 Insurance Care Teams Team MemberRelationshipSpecialtyStart DateEnd Date Altagracia Arriola PCP - General07/20/05 Domi Smith, CONSTRUCTION MILLWRIGHT [address] [place] [address] ReferringPain [facility]07/14/21 Qiana Chiu, HIMA [address] [place] [address] Pzjxlpjyk79/14/23 Heaven Ramos, HMIA [address] [address] [facility]09/29/24
--- OUTSIDE RECORDS SUMMARY | 2025-05-12 12:14 | XMS_ITS | Patient Health Record ---
Author Organization [facility] [place] Address [address] [place] [address] Care Team Providers Care Enrobing Machine Operator Name Role Phone Zackbrittaney Marycruz MCNEILL Primary Care Provider Steve JusticedreDylan [phone] Allergies No Known Allergies Results Component Value Reference Range Notes BMP w/GFR Reviewed date:08/17/2024 02:22:03 PM Interpretation: Performing Lab:[facility]. [address] PH:[phone] Notes/Report: SODIUM 137 134-146 mmol/L POTASSIUM4.13.5-5.0 mmol/ARQESPMEC86108-422 mmol/LCARBON FXGYDBI6259-36 mmol/L ANION TVC337-33 mmol/LBLOOD UREA LEOIFBPM430-59 mg/dLCREATININE0.740.40-1.00 mg/dLMETHOD TRACEABLE TO IDMS ZRFFAAHQCRKWJSK30144-55 mg/dLCALCIUM8.98.5-10.5 mg/dLeGFR (CKD-EPI) NON-RACE CFNGKZYZC95>59 ml/min/1.73sq.m Reported eGFR is based on the CKD-EPI 2020 equation that does not use a race coefficient. PERFORMED AT [place] [address], [place] [address] CBC (COMPLETE BLOOD COUNT) * Reviewed date:08/17/2024 02:23:09 PM Interpretation: Performing Lab:[facility]), [facility] [address]. [address] PH:[phone] Notes/Report:WBC COUNT6.84.0-11.0 X10E9/LRBC COUNT4.953.80-5.20 X10E12/L VMYBEDSXPK55.611.7-15.5 g/gVNXOQDYXRFE26.935-47 %MFB7881-468 fLMCH29.527-34 pg MCHC32.532-36 g/dLRDW14.111.5-15.0 %PLATELET BNHSA509773-007 X10E9/LMPV11.07-12 fLPERFORMED [address] [place] [address] ALBUMIN Reviewed date:08/17/2024 02:22:08 PM Interpretation: Performing Lab:[facility]), [address] [place], [place] [address]E., [address] [address] PH:[phone] Notes/Report:ALBUMIN4.13.2-5.3 g/dLPERFORMED AT [address] [address]VPYVRJLBF Reviewed date:08/17/2024 02:21:53 PM Interpretation: Performing Lab:[facility]), [address] [place] [address] AVE[address] [address] PH:[phone] Notes/Report:MAGNESIUM1.91.8-2.6 mg/dLPERFORMED AT [address] [id number] Reviewed date:08/17/2024 02:21:47 PM Interpretation: Performing Lab:[facility]), [address] [place] [address] AVE[address] [address] PH:[phone] Notes/Report:PHOSPHORUS3.32.4-4.9 mg/dLPERFORMED AT [address] [id number], B Reviewed date:08/21/2024 03:43:35 PM Interpretation: Performing Lab:[facility], [address] [place] [address] [place]VE., [place]. [address] PH:[phone] Notes/Report:Tacrolimus, B6.25.0-15.0 (Trough) ng/mL NOTE ADDITIONAL INFORMATION Target steady-state trough concentrations vary depending on the type of transplant, concomitant immunosuppression, clinical/institutional protocols, and time post-transplant. Results should be interpreted in conjunction with this clinical information and any physical signs/symptoms of rejection/toxicity. Testing performed by Liquid Chromatography-Tandem Mass Spectrometry (LC-MS/MS). This test was developed and its performance characteristics determined by [facility] in a manner consistent with CLIA requirements. This test has not been cleared or approved by the U.S. Food and Drug Administration. Test Performed by: [address] [address] Hub Borer: Buddy Ballard Ph.D.; CLIA# [id number] PERFORMED AT [address] [place] [address] BMP w/GFR Reviewed date:02/23/2025 11:51:59 AM Interpretation: Performing Lab: Notes/Report:ZNBGSI222445-423 mmol/LPOTASSIUM4.23.5-5.0 mmol/DFEPARDMV31079-761 mmol/LCARBON OAXJREZ3652-76 mmol/LANION DEH822-69 mmol/LBLOOD UREA JJZINEKH073- 27 mg/dLCREATININE0.710.40-1.00 mg/dLMETHOD TRACEABLE TO IDMS BFCCVWCPXGDEFDT528 65-99 mg/dLCALCIUM9.18.5-10.5 mg/dLEGFR (CKD-EPI) NON-RACE DEPENDENT>90>=60 ml/min/1.73sq.m Reported eGFR is based on the CKD-EPI 2020 equation that does not use a race coefficient. PERFORMED AT [facility] [address],[place] [address] CBC (COMPLETE BLOOD COUNT) * Reviewed date:02/23/2025 11:53:00 AM Interpretation: Performing Lab: Notes/Report:WBC5.54-11 x10E9/LRBC COUNT4.903.8-5.2 X10E12/IXFSVJTRUGT71.311.7- 15.5 g/cCTBZFDIAAUU22.735-47 %XII1876-708 fLMCH29.127-34 muGGZH56.632-36 g/dLRDW 14.111.5-15 %PLATELET TIAXY037303-935 X10E9/LMPV11.67-12 fL PERFORMED AT [address], [place] [address] ALBUMIN Reviewed date:02/23/2025 11:51:40 AM Interpretation: Performing Lab: Notes/Report:ALBUMIN4.23.2-5.3 g/dL PERFORMED AT [address] [place] [address] MAGNESIUM Reviewed date:02/23/2025 11:52:23 AM Interpretation: Performing Lab: Notes/Report:MAGNESIUM2.01.8-2.6 mg/dL PERFORMED AT [address] [place] [address] PHOSPHORUS Reviewed date:02/23/2025 11:52:10 AM Interpretation: Performing Lab: Notes/Report:PHOSPHORUS3.72.4-4.9 mg/dL PERFORMED AT [address] [place] [address] MICROALBUMIN WITH RATIO Reviewed date:02/23/2025 11:51:31 AM Interpretation: Performing Lab: Notes/Report:URINE CREATININE,RDM45.93MALB/CREAT FOVLL067.80.0-30.0 mg/g MICROALBUMIN, URINE6.10.0-1.9 mg/dL PERFORMED AT [address] [place] [address] PTHI ([facility]) Reviewed date:02/23/2025 11:52:42 AM Interpretation: Performing Lab: Notes/Report:PTH TYUZYH3671-45 pg/mL PERFORMED AT [address] [place] [address] VITAMIN D 25 HYD TOT Reviewed date:02/23/2025 11:52:33 AM Interpretation: Performing Lab: Notes/Report:VITAMIN D 25 HYD TOT31.730.0-100.0 ng/mL Vitamin D status 25 [place] Vitamin D Deficiency <20 ng/mL Insufficiency 20-29 ng/mL Sufficiency 30-100 ng/mL Toxicity >100 ng/mL NOTE: A pediatric reference range has not been established by the movie machine operator of this kit. The [place] [employer] recommends a Vitamin D level of = or >20ng/mL in infants and children. PERFORMED AT [address] [place] [address] URINALYSIS Reviewed date:02/26/2025 09:10:10 AM Interpretation: Performing Lab: Notes/Report:COLORYellowYellowTURBIDITYClearClearSPECIFIC GRAVITY1.0351.003- 1.035 NANITRITENegativeNegativePH,URINE5.05.0-8.5 NALEUKOCYTE ESTERASENegative NegativeHigh Concentrations of Glucose May Decrease the Reactivity of the Dipstick Leukocyte Test Pad.PROTEINNegativeNegativeKETONES (URINE)Negative NegativeUROBILINOGEN<1.1 eu/dL<1.1 eu/dLBILIRUBIN (URINE)NegativeNegative BLOOD/HGBNegativeNegativeGLUCOSE (URINE)>1000 mg/dLNegative Urine received without preservative. Delays in transport may affect results. Interpret with caution. A clinical correlation is recommended. PERFORMED AT [address], [place] [address] URINALYSIS Reviewed date:08/17/2024 02:22:59 PM Interpretation: Performing Lab:[facility] [address] [place] [address], [address] [place] [address]. [address] PH:[phone] Notes/Report:COLORYELLOWYELLOWTURBIDITYCLEARCLEARSPECIFIC GRAVITY1.044 1.003-1.035NITRITENegativeNegativePH,URINE6.05.0-8.5LEUKOCYTE ESTERASENegative NegativeHIGH CONCENTRATIONS OF GLUCOSE MAY DECREASE THE REACTIVITY OF THE DIPSTICK LEUKOCYTE TEST PAD.PROTEINTraceNegative mg/dLGLUCOSE (URINE)>1000 Negative mg/dLKETONES (URINE)NegativeNegative mg/dLUROBILINOGEN<1.1<1.1 eu/dL BILIRUBIN (URINE)NegativeNegativeBLOOD/HGBNegativeNegativeR.B.MSSLC68-0 /hpf SQUAMOUS TOEBNJGOWL86-6 /hpfW.B.LEHVY18-7 /hpfPERFORMED AT [address] [address]BKSDJVIBVLTJ WITH RATIO Reviewed date:08/17/2024 02:22:37 PM Interpretation: Performing Lab:[facility] [address] [place] [address], [address] [address] PH:[phone] Notes/Report:MICROALBUMIN, URINE6.90.0-1.9 mg/dLURINE CREAT78.22ALB/CREAT RATIO 88.20.0-30.0 mg/g creatPERFORMED AT [address] [address]KSLKRYRTRB, B Reviewed date:02/26/2025 09:09:53 AM Interpretation: Performing Lab: Notes/Report:TACROLIMUS, B4.15.0-15.0 (Trough) ng/mL ADDITIONAL INFORMATION Target steady-state trough concentrations vary depending on the type of transplant, concomitant immunosuppression, clinical/institutional protocols, and time post-transplant. Results should be interpreted in conjunction with this clinical information and any physical signs/symptoms of rejection/toxicity. Testing performed by Liquid Chromatography-Tandem Mass Spectrometry (LC-MS/MS). This test was developed and its performance characteristics determined by [facility] in a manner consistent with CLIA requirements. This test has not been cleared or approved by the U.S. Food and Drug Administration. Test Performed by: [facility] - [address] [address] Hub Borer: Buddy Ballard Ph.D.; CLIA# [id number] Reason For Referral No Information Medications Medication SIG (Take, Route, Frequency, Duration) Notes Start Date End Date Status Fenofibrate 48 MG 1 tablet Orally Once a day; Du ration: 30 day(s) ActiveDULoxetine HCl 60 MG1 capsule Orally Once a day; Duration: 30 day(s)Active Diclofenac Sodium 1 %as directed Externally QIDActiveLyrica 50 MG1 capsule Orally TIDNot-TakingB Complex -as directed OrallyActiveLantus 100 UNIT/ML54 units Subcutaneous BIDNot-TakingAspirin 81 MG1 tablet Orally Once a day; Duration: 30 day(s)ActiveErgocalciferol 48231 UNIT1 capsule Orally Weekly Not-TakingCanagliflozin 100 MG1 tablet Orally Once a day; Duration: 30 day(s) Not-TakingAtorvastatin Calcium 40 MG1 tablet Orally Once a day; Duration: 30 day(s)Not-TakingApidra 100 UNIT/ML28-30 units Injection TIDNot-TakingGabapentin 600 MG1 tablet Orally QIDActiveFlorastor 250 MGas directed OrallyActiveFerrous Sulfate 325 (65 Fe) MG1 tablet Orally Once a day; Duration: 30 day(s)Active Alendronate Sodium 10 MG1 tablet Orally weeklyNot-TakingMycophenolate Mofetil 250 MG4 capsules Orally Twice a day; Duration: 90 daysActiveTacrolimus 1 MG2 capsules in the morning and 1 capsule in the evening Orally daily; Duration: 90 daysActivetiZANidine HCl 4 MG1 tablet as needed Orally BIDActiveRosuvastatin Calcium 10 MG1 tablet Orally Once a day; Duration: 30 day(s)ActivePercocet 10- 325 MG1 tablet as needed Orally BIDActiveOzempic (2 MG/DOSE) 8 MG/3MLas directed SubcutaneousActiveNovoLOG FlexPen 100 UNIT/MLas directed SubcutaneousActive Jardiance 10 MG1 tablet Orally Once a day; Duration: 30 day(s)ActiveZoloft -50 mg 1 tablet DailyActivetraZODone HCl 100 MG1 tablet at bedtime Orally Once a day; Duration: 30 day(s)Active Social History Tobacco Use: Social History Observation Description Date Details (start date - stop date) Never Smoker NA - NA Tobacco Use/Smoking Question Answer Notes Patient is a nonsmoker Alcohol Screen (Audit-C) Question Answer Notes Did you have a drink containing alcohol in the p ast year? No Fodmpa5QtcrnmqnkwvcbrImtyrfnr Problems Problem Type SNOMED Code ICD Code Onset Dates Problem Status W/U Status Risk Notes Problem Information temporarily unavaila ble Essential (primary) hypertension (I10) ActiveconfirmedProblemInformation temporarily unavailableType 2 diabetes mellitus without complications (E11.9)ActiveconfirmedProblemInformation temporarily unavailableChronic kidney disease, stage II (mild) (N18.2)Active confirmedProblemInformation temporarily unavailableLong term current use of insulin (Z79.4)ActiveconfirmedProblemInformation temporarily unavailable Albuminuria (R80.9)ActiveconfirmedProblemInformation temporarily unavailable 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)Activeconfirmed Vital Signs Blood pressure diastolic 64 mm Hg 03/05/2025 Qetvpz0iq 6in in03/05/2025lood pressure xrtrqagc791 mm Hg03/05/20253838Etnjfr118.6 lbs03/05/2025BMI32.7 kg/m203/05/2025 Encounters Encounter Location Date Provider Diagnosis [address] [address] 08/21/2024 Dylan Kenny Chronic kidney disease, stage II (mild) N18.2 ; Type 2 diabetes mellitus without complications E11.9 ; Living-donor kidney transplant recipient Z94.0 and Albuminuria R80.9 [place] [id number] [place] [phone] 03/05/2025 Dylan Kenny Chronic kidney disease, stage II (mild) N18.2 ; Living-donor kidney transplant recipient Z94.0 ; Type 2 diabetes mellitus without complications E11.9 and Albuminuria R80.9 [facility] [address] [place] [address] 04/25/2025 Dylan Kenny Living-donor kidney transplant recipient Z94.0 Assessments Encounter Date Diagnosis (ICD Code) Assessment Notes Treatment Notes Treatment Clinical Notes Section Notes 08/21/2024 Chronic kidney disease, stage II (mild) (ICD-10 - N18.2) 08/21/2024Type 2 diabetes mellitus without complications (ICD-10 - E11.9) 03/05/2025hronic kidney disease, stage II (mild) (ICD-10 - N18.2)03/05/2025 Living-donor kidney transplant recipient (ICD-10 - Z94.0) [...] good daily oral hydration Avoid NSAID use 04/25/2025Living-donor kidney transplant recipient (ICD-10 - Z94.0)03/05/2025 Type 2 diabetes mellitus without complications (ICD-10 - E11.9)08/21/2024Living- donor kidney transplant recipient (ICD-10 - Z94.0) Cr [...] exam No evidence of infection or rejection 08/21/2024lbuminuria (ICD-10 - R80.9)03/05/2025lbuminuria (ICD-10 - R80.9) Plan Of Treatment Pending [...] Provider Name:Dylan Kenny, 09/03/2025 12:00:00 PM, [address] [place] [address], [phone], Insurance Providers Payer Name Payer Address Payer Phone Subscriber Number Group Number Insured Name Patient Relationship to Insured Coverage Start Date Coverage End Date [employer] ADV PLAN [address] [place] [address] [id number] Sol[facility] Self - patient is the insured 1 Medical (General) History Medical History History ICD Code History of hyperlipidemia History of diabetes mellitusHistory of gallstonesHistory of hypertensionRenal cell carcinomaSurgical History Surgery Date(Month/Year)
== END 2025-05-12 12:42 | disposition home or self-care (01) ==
PROVIDERS: Emergency Provider Emergency Medicine; PCP Nurse Practitioner Family
DX: M47.816 Spondylosis without myelopathy or radiculopathy, lumbar region (principal); M54.16 Radiculopathy, lumbar region; G89.4 Chronic pain syndrome
CPT/HCPCS: 99283; J1171; J2919

== ENCOUNTER 2025-05-30 09:55 | Outpatient (OUT) | payer MEDICARE, SELFPAY ==
--- OUTSIDE RECORDS SUMMARY | 2024-06-26 08:00 | XMS_ITS ---
Author Organization [facility] [place] Address [address] [place] [address] Care Team Providers Care Crusher Assembler Name Role Phone Marycruz Medellin Primary Care Provider Steve JusticedreDylan [phone] REASON FOR VISIT 6 month ov, CKD 2, HTN, albuminuria, Kidney transplant status Encounters Encounter Location Date Provider Diagnosis [facility] [address] [place] [address] 06/26/2024 Dylan Kenny Plan Of Treatment Next Appt Details Provider Name:Dylan Kenny, 09/03/2025 12:00:00 PM, [address] [place], [address], Progress Notes * Lisy FLORESDOB: [birth year] (69 yo F)Acc No.[id number]:06/26/2024 UNLOCKED PROGRESS NOTE Progress Note Patient: Lisy URENA :?Dylan Kenny, MDDOB:1955???Age:68 Y ???Sex:FemaleDate:06/26/2024Phone:[phone]:[address] [place] [address]Pcp:OSITO Roberts Subjective: * Chief Complaints: * 1 . 6 month ov. 2. CKD 2. 3. HTN. 4. Albuminuria. 5. Kidney transplant status. * HPI: ???General:?68 yo F with living related kidney transplant 2013, CKD 2 with baseline Cr around 0.6, here for follow up visit. Cr is stable at 0.6. Electrolytes remain in the normal range. Hgb is stable in the normal range. Her DM control is not perfect, but stable. No recent changes to her IS regimen, no episodes of rejection. She reports good BP control since her last visit. Her prograf level is a bit low at2.9, also on MMF 1g bid. * Medical History: Objective: * Vitals: Assessment: Plan: * Treatment: * * Electronic signature of Dylan Kenny MD, [id number] on 05/30/2025 at 10:02 AM EST Sign off status: PendingVisit Status:?CANC (Cancelled) * Provider: Chula Kenny MD Date: 0 06/26/2024 Generated for Printing/Faxing/eTransmitting on:?05/30/2025 10:02 AM EST
--- OUTSIDE RECORDS SUMMARY | 2025-02-19 08:20 | XMS_ITS ---
Author Organization The [facility] in [place] Address [address] [place] [address] Care Team Providers Care Histologist Name Role Phone Marycruz Medellin Primary Care Provider Dylan Pacheco [phone] REASON FOR VISIT CKD 2, HTN, Albuminuria Encounters Encounter Location Date Provider Diagnosis [facility] [place] [address] [place] [address] 02/19/2025 Dylan Kenny Plan Of Treatment Next Appt Details Provider Name:Dylan Kenny, 09/03/2025 12:00:00 PM, [address] [place], [address], Progress Notes * Lisy FLORESDOB: [birth year] (69 yo F)Acc No.[id number]:02/19/2025 UNLOCKED PROGRESS NOTE Progress Note Patient: Lisy URENA :?Dylan Kenny MDDOB:1955???Age:69 Y ???Sex:FemaleDate:02/19/2025Phone:[phone]:[address] [place] [address]Pcp:OSITO Roberts Subjective: * Chief Complaints: * 1 . CKD 2. 2. HTN. 3. Albuminuria. * Medical History: Objective: * Vitals: Assessment: Plan: * Treatment: * * Electronic signature of Dylan Kenny MD, [id number] on 05/30/2025 at 10:02 AM EST Sign off status: PendingVisit Status:?R/S (Rescheduled) * Provider: Chula Kenny MD Date: 0 02/19/2025 Generated for Printing/Faxing/eTransmitting on:?05/30/2025 10:02 AM EST
--- OUTSIDE RECORDS SUMMARY | 2025-05-24 04:42 | XMS_ITS | Continuity of Care Document ---
Author Organization 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 Name Role Phone Marycruz Guzman Josh MCNEILL Primary Care Provider Airam Thomas APRN Attending Provider Care Teams Patient Care Team Team Status: Active Member Role/Relationship Status Dates OSITO Roberst Primary Care Provider Active Patient Care Team Team Status: Inactive Member Role/Relationship Status Dates OSITO Roberts Primary Care Provider Active S tart: May 24, 2025 End: May 24, 2025Tondra Dali Thomas APRNAttenjerome ProviderActiveStart: May 24, 2025 End: May 24, 2025 Chief Complaint and Reason for Visit Chief Complaint Admit Date no meter May 24, 2025 9:09am Reason for Visit Admit Date Dietary counseling and surveillance Dece mber 2024 9:09am History of transplantation, renal Decemb er 2024 9:09am Hyperlipidemia May 24, 2025 9:09am Hypertension May 24, 2025 9:09am Obesity, Class II, BMI 35-39.9 May 24, 2025 9:09am Type 2 diabetes mellitus with hyperglyce ronaldo May 24, 2025 9:09am Allergies, Adverse Reactions, Alerts Allergen Type Severity Reaction Last Updated Verified Status No Known Allergies Allergy Unknown May 24, 2025 9:18amYesActive Social History Smoking Status Status Start Date End Date Date of Observa tion Never smoked tobacco (finding) October 04, 2023 10:42am Observation Status Observation Response Date of Response Legal Sex Female (finding) Sex Assigned At BirthFemaleApril 1955 Family History Relationship Condition Age at Onset Recorded Date/T jolene mother Hypertension Unknown History of heart surgeryUnknownType 2 diabetes mellitusUnknownfatherHypertension UnknownMyocardial infarctionUnknownHistory of heart surgeryUnknownType 2 diabetes mellitusUnknownMalignant neoplasm of lungUnknownbrotherMalignant neoplasm of colonUnknownType 2 diabetes mellitusUnknownHistory of heart surgery UnknownHypertensionUnknownbrotherType 2 diabetes mellitusUnknownfatherHistory of strokeUnknownHeart diseaseUnknownDiabetes mellitusUnknownDeceasedUnknown HypertensionUnknownmotherHypertensionUnknownDiabetes mellitusUnknownHeart diseaseUnknownHistory of strokeUnknownsiblingDiabetes mellitusUnknownMalignant neoplasmUnknown Problems Active Problems Problem Diagnosis/Recorded Date Onset Date Status C milad Carpal tunnel syndrome, right November 2024 8:13am U nknown Active Synovitis of right wristMay 08, 2025 8:11amUnknownActiveTrigger finger, right ring fingerNovember 2024 8:12amUnknownActiveOther specified postprocedural statesNovember 2024 8:13amUnknownActiveTrigger thumb, left thumbNovember 2024 8:12amUnknownActiveType 2 diabetes mellitus with hyperglycemiaMarch 2023 4:05pmUnknownActiveDietary counseling and surveillanceApril 2023 10:28amUnknownActiveMass of right handNovember 2024 8:13amUnknownActiveHyperlipidemiaFebruary 2019 2:41pmUnknown ActiveObesity, Class II, BMI 35-39.9July 2024 12:04pmUnknownActiveTrigger thumb, right thumbNovember 2024 8:12amUnknownActiveHistory of transplantation, renalFebruary 2019 2:00pmUnknownActiveright kidney, 2013 HypertensionApril 2023 10:27amUnknownActiveArthritis of right handNovember 2024 8:11amUnknownActiveInactive/Resolved Problems Problem Diagnosis/Recorded Date Onset Date Status C omments BMI 36.0-36.9,adult October 04, 2023 10:28am Unknown Re solved BMI 34.0-34.9,adultFebruary 2024 11:19amUnknownResolved Medications Medication Status Dose Units Route Directions Qty Days Refills S tart Date Stop Date End Date Reason(s) Instructions Adherence Insulin Aspart U-100 (Novolo g Flexpen U-100 Insulin) 100 unit/mL (3 mL) insulin pen Discontinued 0 SUBCUT.COMPLEXAugch 2023 12:00amMarch 2023 4:28pmType 2 diabetes mellitus with hyperglycemia Type 2 diabetes mellitus with hyperglycemiasubcutaneously; FreeTextSig: INJECT 25, 30, 35 UNITS SUBCUTANEOUSLY BASED ON MEAL SIZE BEFORE MEALS. CORRECTIVE SCALE 1:10 BEFORE MEALS 3 TIMES A DAY (AT BEDTIME IF GREATER THAN 200 HALF DOSE) DIRECTED, UP TO 120 UNITS PER DAY.; Note: Source Status: Taking; Refills: 3; Qty: 120 Milliliter; Provider: William Alegria ( )Insulin Degludec (Tresiba Flextouch U-200) 200 unit/mL (3 mL) insulin pqnTkzhxvjtuedx82ZXGFLBBCEZGwjrg morningAugch 2023 12:00amMarch 2023 4:28pmFreeTextSig: INJECT 60 UNITS SUBCUTANEOUSLY ONCE DAILY. MAY TITRATE UP TO 70 UNITS PER DAY DIRECTED; Note: Source Status: Taking; Refills: 1; Qty: 36 Milliliter; Provider: William Alegria ( )Insulin Aspart U-100 (Novolog Flexpen U-100 Insulin) 100 unit/mL (3 mL) insulin izbFkhynjobjkcg4RIMGPT.IGUYKIL9498Gzies 2023 4:11pmApril 2023 10:38amType 2 diabetes mellitus with hyperglycemia Type 2 diabetes mellitus with hyperglycemiasubcutaneously; FreeTextSig: INJECT 25, 30, 35 UNITS SUBCUTANEOUSLY BASED ON MEAL SIZE BEFORE MEALS. CORRECTIVE SCALE 1:10 BEFORE MEALS 3 TIMES A DAY (AT BEDTIME IF GREATER THAN 200 HALF DOSE) DIRECTED, UP TO 120 UNITS PER DAY.; Note: Source Status: Taking; Refills: 3; Qty: 120 Milliliter; Provider: William Alegria ( )Insulin Degludec (Tresiba Flextouch U-200) 200 unit/mL (3 mL) insulin zffIyqlhxjlziqf15BULJTWDASPKkbpw nfntroj17005Aavaj 2023 4:25pmApril 2023 10:38amType 2 diabetes mellitus with hyperglycemia Type 2 diabetes mellitus with hyperglycemiaFreeTextSig: INJECT 60 UNITS SUBCUTANEOUSLY ONCE DAILY. MAY TITRATE UP TO 70 UNITS PER DAY DIRECTED; Note: Source Status: Taking; Refills: 1; Qty: 36 Milliliter; Provider: William Alegria ( )Insulin Aspart U-100 (Novolog Flexpen U-100 Insulin) 100 unit/mL (3 mL) insulin zwqJrnwuhufvxdw4WPLUFO.RWPNJIC1480Aicto 2023 10:36amMay 2023 12:08pmType 2 diabetes mellitus with hyperglycemia Type 2 diabetes mellitus with hyperglycemiasubcutaneously; FreeTextSig: INJECT 25, 30, 35 UNITS SUBCUTANEOUSLY BASED ON MEAL SIZE BEFORE MEALS. CORRECTIVE SCALE 1:10 BEFORE MEALS 3 TIMES A DAY (AT BEDTIME IF GREATER THAN 200 HALF DOSE) DIRECTED, UP TO 120 UNITS PER DAY.; Note: Source Status: Taking; Refills: 3; Qty: 120 Milliliter; Provider: William Alegria ( )Insulin Degludec (Tresiba Flextouch U-200) 200 unit/mL (3 mL) insulin fbwEmxnlvturind07TGMHVQFAIOZubki ibviqot42399Xrkug 2023 10:36amSeptember 2023 9:24amType 2 diabetes mellitus with hyperglycemia Type 2 diabetes mellitus with hyperglycemiaFreeTextSig: INJECT 62 UNITS SUBCUTANEOUSLY ONCE DAILY. MAY TITRATE UP TO 70 UNITS PER DAY DIRECTED; Note: Source Status: Taking; Refills: 3; Qty: 36 Milliliter; Provider: William Alegria ( )Insulin Aspart U-100 (Novolog Flexpen U-100 Insulin) 100 unit/mL (3 mL) insulin sssKdygkudffqko0ZMGYFO.FJQQUGG4477Pyu2023 12:06pmMay 2023 4:46pmType 2 diabetes mellitus with hyperglycemia Type 2 diabetes mellitus with hyperglycemiasubcutaneously; FreeTextSig: INJECT 25, 30, 35 UNITS SUBCUTANEOUSLY BASED ON MEAL SIZE BEFORE MEALS. CORRECTIVE SCALE 1:10 BEFORE MEALS 3 TIMES A DAY (AT BEDTIME IF GREATER THAN 200 HALF DOSE) DIRECTED, UP TO 120 UNITS PER DAY.; Note: Source Status: Taking; Refills: 3; Qty: 120 Milliliter; Provider: William Alegria ( )Empagliflozin 25 mg rbekfmEkgdligishwr84DCZQHqebo becroym701UfyOctober 25, 2023 12:08pmSeptember 2023 9:51amdiabetesInsulin Lispro-Aabc (Lyumjev Kwikpen U-100 Insulin) 100 unit/mL insulin wasSeniaxgqaozk0OYBHIXGqz as Directed y 2023 11:00pmFebruary 2024 10:37amType 2 diabetes mellitus with hyperglycemia Type 2 diabetes mellitus with hyperglycemia long term care phlebotomist (current) use of insulinINJECT 25, 30, 35 UNITS ACCORDING TO MEAL SIZE BEFORE MEALS. CORRECTIVE SCALE 1:10 BEFORE MEALS 3 TIMES A DAY (AT BEDTIME IF GREATER THAN 200 HALF DOSE) DIRECTED, UP TO 120 UNITS PER DAY;Insulin Lispro- Aabc (Lyumjev Kwikpen U-100 Insulin) 100 unit/mL insulin utdXzqgggvydiyk9GCVRGW Use as Prmavdre5677Ydrcivrs 2024 10:36amNovember 2024 4:05pmType 2 diabetes mellitus with hyperglycemia Type 2 diabetes mellitus with hyperglycemia long term care phlebotomist (current) use of insulinINJECT 25, 30, 35 UNITS ACCORDING TO MEAL SIZE BEFORE MEALS. CORRECTIVE SCALE 1:10 BEFORE MEALS 3 TIMES A DAY (AT BEDTIME IF GREATER THAN 200 HALF DOSE) DIRECTED, UP TO 120 UNITS PER DAY;Blood-Glucose Sensor (Freestyle Enedelia 2 Plus Sensor) deviceActive0.ROUTE.YKNPUWHMO74Erldwrlg 3rd, 2025 7:06amType 2 diabetes mellitus with hyperglycemia Type 2 diabetes mellitus with hyperglycemia long term care phlebotomist (current) use of insulinchange every 15 daysInsulin Degludec (Tresiba Flextouch U-200) 200 unit/mL (3 mL) insulin iljVapghtmbpodq05HGTEBFPNXSAjbfg kzympgd331Cimnobwz2024 4:03pmDecember 2024 9:42amType 2 diabetes mellitus with hyperglycemia Type 2 diabetes mellitus with hyperglycemiaINJECT 60 UNITS SUBCUTANEOUSLY ONCE DAILY. MAY TITRATE UP TO 70 UNITS PER DAY DIRECTED;Insulin Lispro-Aabc (Lyumjev Kwikpen U-100 Insulin) 100 unit/mL insulin qrfJtcfpk3QVVWYDVac as Puvwbctj3723Vwgeryrl2024 4:03pmType 2 diabetes mellitus with hyperglycemia Type 2 diabetes mellitus with hyperglycemia long term care phlebotomist (current) use of insulinINJECT 25, 30, 35 UNITS ACCORDING TO MEAL SIZE BEFORE MEALS. CORRECTIVE SCALE 1:10 BEFORE MEALS 3 TIMES A DAY (AT BEDTIME IF GREATER THAN 200 HALF DOSE) DIRECTED, UP TO 120 UNITS PER DAY;Complies with drug therapySemaglutide (Ozempic) 2 mg/dose (8 mg/3 mL) pen epykhfvkKksytc3TL SUBCUTevery 2024 4:03pmType 2 diabetes mellitus with hyperglycemia Type 2 diabetes mellitus with hyperglycemia shelter (current) use of insulinComplies with drug therapyEmpagliflozin 25 mg vpxsokEgqoiv83WLHQWhkdb hlxnvuy551Pwphfgps2024 4:05pmType 2 diabetes mellitus with hyperglycemia Type 2 diabetes mellitus with hyperglycemia shelter (current) use of insulin diabetesComplies with drug therapyCyclobenzaprine 10 mg lzeiqoGktytg29XPXNBwrlb times dailyFebruary 2019 12:00ammuscle spasmComplies with drug therapy Pioglitazone 15 mg qkudslMwbkoivfxkun30WSNFSeklc at bedtimeFebruary 2019 12:00amApril 2023 9:38amdiabetesAtorvastatin 40 mg qumxumCimhjvxrjvrk35WE POEvery morningFebruary 2019 12:00amApril 2023 9:36amhyperlipidemia Gabapentin 600 mg zmitdjZqpmhf983MXECKblja times dailyFebruary 2019 12:00amneuropathyUnknownMycophenolate Mofetil 250 mg TqnwktpDbdyfr0263UUHAT11W August 08, 2019 12:00amkidney transplantComplies with drug therapySertraline 100 mg zrzdgiQcreui422AHLSZwfjh at bedtimeFebruary 2019 12:00amdepression Complies with drug therapyBaclofen 20 mg wivoixCebrpjemhuby63PRVLQdkqi at bedtimeFebruary 2019 12:00amFebruary 2024 10:11ammuscle spasm Oxycodone-Acetaminophen 10-325 mg uvikrsCyuxmnjzpops0EEOWWTshoc times daily August 08, 2019 12:00amApril 2023 9:40ampainFerrous Sulfate 325 mg (65 mg iron) rwnnvfXbcioh393ZWGRCsjnt dailyFebruary 2019 12:00amsupplement Complies with drug therapyTacrolimus 1 mg EazkswgXkzsgd0MEMDKsvvx morning August 08, 2019 12:00amkidney transplantComplies with drug therapyTacrolimus 1 mg NexvgeqWfnmim4RGZDDbsut at bedtimeFebruary 2019 12:00amkidn transplantComplies with drug therapyInsulin Aspart U-100 100 unit/mL (3 mL) insulin sjtLzohawhorbwy1CQLKPEUEJSCdgcv times dailyFebruary 2019 12:00am August 17, 2023 4:05pmdiabetesCalcium Carbonate-Vitamin D3 500 mg(1,250mg) -200 unit tqayveStmgxugzuxxh3WQLSXPisqx morningFebruary 2019 12:00amFebruary 2024 10:12amsupplementFenofibrate Nanocrystallized 48 mg tabletDiscontinued 48MGPOEvery morningFebruary 2019 12:00amApril 2023 9:37am hypercholesterolInsulin Glargine 100 unit/mL (3 mL) insulin jxcQifomastuwwg28 UNITSSUBCUTTwice dailyFebruary 2019 12:00amMarc2023 4:08pmdiabetes Empagliflozin 25 mg xtgvmaLngdctutwkfu46CNJCLteks morningFebruary 2019 12:00amMay 2023 12:08pmdiabetesDulaglutide 1.5 mg/0.5 mL pen injector Cuhnmyfjfadv5APEHNMJOMFpwqjj weekFebruary 2019 12:00amApril 2023 9:37amdiabetesAspirin (Kory Low Dose Aspirin) 81 mg Tablet,Delayed Release (Dr/Ec)Buwcch94KJGYYvbvw morningFebruary 2019 12:00amComplies with drug therapyHydrocodone-Acetaminophen (Jay Em) 5-325 mg tabletDiscontinued1 - 2TABPO EVERY 4-6 HOURS as needed for Relz1856Doklu 2019September 2023 9:22am Postoperative pain of extremity Trigger finger Carpal tunnel syndrome Other acute postprocedural pain Trigger finger, unspecified finger Carpal tunnel syndrome, unspecified upper limbSulfamethoxazole-Trimethoprim (Bactrim Ds) 800-160 mg jdnnkhKhpryyeidruq5TOKXJDalwi uvhzz5894Epcyc 2019 11:00pmApril 2023 9:38amSaccharomyces Boulardii (Probiotic (S.Boulardii)) 250 mg bpheiooZhcsce288HHVLWvfysKvxvdqik 2024 12:00amComplies with drug therapyBaclofen 10 mg dibyphPzxjchtnaorf49NDJONaddh times dailyFebruary 2024 12:00amFebruary 2024 10:11amInsulin Aspart U-100 100 unit/mL (3 mL) insulin penDiscontinuedSUBCUTFebruary 2024 12:00amFebruary 2024 10:13amRosuvastatin 20 mg vmtpnfQyanvt25JYZDSbcmoHtaargcq 2024 12:00am Complies with drug therapyTrazodone 150 mg tyidymNbapjf862QKAAHesva at bedtime July 18, 2024 12:00amComplies with drug therapyPregabalin 75 mg capsule Zksheq39IVLZEdibw times dailyDece2024 12:00amComplies with drug therapyInsulin Degludec (Tresiba Flextouch U-200) 200 unit/mL (3 mL) insulin pen Vsqlqk91CHKADWZPJMRtyqy qsfgayh160FxztmeujMay 24, 2025 9:36amType 2 diabetes mellitus with hyperglycemia Type 2 diabetes mellitus with hyperglycemiaComplies with drug therapySemaglutide (Ozempic) 2 mg/dose (8 mg/3 mL) pen injectorDiscontinuedMGSUBCUTApril 2023 11:00pmSeptember 2023 9:51amFreeTextSig: INJECT 2MG SUBCUTANEOUSLY ONCE WEEKLY; Note: Source Status: Taking; Refills: 3; Qty: 9Milliliter; Provider: William Alegria ( )Cholecalciferol (Vitamin D3) 50 mcg (2,000 unit) fcpyqslNpcohf1794HJGWYTYcyllRbrhl 2023 11:00pmComplies with drug therapy Diclofenac Sodium 1 % gelActiveTOPICALApril 2023 11:00pmFreeTextSi grams to affected area Transdermal Twice a day; Note: Source Status: Taking; Refills: 0; Provider: Zeynep Ruiz ( )Complies with drug therapyflash glucose sensor (FreeStyle Enedelia 2 Sensor)Discontinued.RouteApril 2023 11:00pmFebruary 2024 10:01amblood sugar diagnostic (FreeStyle Precision Harish Strips)Active.RouteApril 2023 11:00pmpen needle, diabetic (BD Anuja 2nd Gen Pen Needle)Discontinued.RouteApril 2023 11:00pmJuly 2024 11:58amOxycodone-Acetaminophen 7.5-325 mg ljbdldDebiqdiubqzv1CKKBNKplog times daily as mxirjt4Uwzkp 2023 11:00pmFebruary 2024 10:13am Rosuvastatin 10 mg pqyjrcIjwhxfaojobq24MYLGMskdeAvfua 2023 11:00pmFebruary 2024 10:13amInsulin Degludec (Tresiba Flextouch U-200) 200 unit/mL (3 mL) insulin xecCxjhaiestuyt40EKXIHGFNWUWnwtp morningSept2023 9:21am July 18, 2024 10:37amType 2 diabetes mellitus with hyperglycemia Type 2 diabetes mellitus with hyperglycemiaINJECT 60 UNITS SUBCUTANEOUSLY ONCE DAILY. MAY TITRATE UP TO 70 UNITS PER DAY DIRECTED;Semaglutide (Ozempic) 2 mg/dose (8 mg/3 mL) pen csavvolzJeqfzuuywgam5TFRIADISzlxhu utiz71Izxcdyjyw 2023 9:50amJuly 2024 11:58amType 2 diabetes mellitus with hyperglycemia Type 2 diabetes mellitus with hyperglycemia long term care phlebotomist (current) use of insulinEmpagliflozin 25 mg izsrfbFzlampohadmn52BAEV Every afzzhlx086Vvymktsnh 2023 9:51amJuly 2024 11:58amType 2 diabetes mellitus with hyperglycemia Type 2 diabetes mellitus with hyperglycemia long term care phlebotomist (current) use of insulin diabetesFlash Glucose Sensor (Freestyle Enedelia 2 Sensor) kitDiscontinued0.ROUTE .ZQPFCCSGY335Jmylaerbv 2023 11:00pmJuly 2024 11:56amType 2 diabetes mellitus with hyperglycemia Type 2 diabetes mellitus with hyperglycemia shelter (current) use of insulinchange every 14 daysInsulin Degludec (Tresiba Flextouch U-200) 200 unit/mL (3 mL) insulin jpaHbhwrtgtqmgy53MUYYXWHPZYBfmdm ppofdti465Slqghmnx 2024 10:36amNovember 2024 4:05pmType 2 diabetes mellitus with hyperglycemia Type 2 diabetes mellitus with hyperglycemiaINJECT 60 UNITS SUBCUTANEOUSLY ONCE DAILY. MAY TITRATE UP TO 70 UNITS PER DAY DIRECTED;Methocarbamol 500 mg ajgxatAhsfxf458FTUYXmwng times daily as neededJuly 2024 11:00pmUnknown Oxycodone-Acetaminophen 7.5-325 mg zbrwnpZbblih6IZMSJWavft times daily as needed 0July 2024 11:00pmComplies with drug therapyBlood-Glucose Sensor (Freestyle Enedelia 2 Plus Sensor) deviceDiscontinued0.ROUTE.XOJTBYNQV64Aibv 2024 11:00pmNovember 2024 7:06amType 2 diabetes mellitus with hyperglycemia Type 2 diabetes mellitus with hyperglycemia shelter (current) use of insulinchange every 15 daysEmpagliflozin 25 mg tablet Usyldtczpwmk82OFOTAtjiy qbzlbof676Cwgj 2024 11:57amNovember 2024 4:05pmType 2 diabetes mellitus with hyperglycemia Type 2 diabetes mellitus with hyperglycemia long term care phlebotomist (current) use of insulin diabetesPen Needle, Diabetic 32 gauge x 5/32 xwobdkDzkboz5CBCXYNWCRJ.MEDSUPPLY 3600July 2024 11:00pmType 2 diabetes mellitus with hyperglycemia Type 2 diabetes mellitus with hyperglycemia shelter (current) use of insulinqidSemaglutide (Ozempic) 2 mg/dose (8 mg/3 mL) pen mmkdthusGlzwqvjzmhnr8BANRSYISnlauw sgms16Psbw 2024 11:57amNovember 2024 4:05pmType 2 diabetes mellitus with hyperglycemia Type 2 diabetes mellitus with hyperglycemia long term care phlebotomist (current) use of insulin Immunizations Immunization Event Date Not Given Reason Dose Number Hris Manager Lot Number Reason(s) Given Vaccine Information Statement (VIS) Detail Administration Location COVID-19 mRNA-1273 (Moderna) August 09, 2020 COVID-19 mRNA-1273 (Moderna)September 06, 2020influenza, unspecified formulation April 24, 2020 Relevant Diagnostic Tests and/or Laboratory Data Laboratory Results Test Collection Date/Time Result Date/Time Result Interpretation Reference Range Result Comment Performing Site Bedside Hemoglobin A1c May 24, 2025 9:26am Dece mb2024 9:27am 8.4 % Bedside GlucoseDe2024 9:26amDecember 2024 9:75qp826 Vital Signs Vital Reading Result Reference Range Collection Date/Time Height 64 [in_i] May 24, 2025 9:07kjHwxedt79.00 kgMay 24, 2025 9:13amHeart Rate64 /iyl82-547LfvrurpmMay 24, 2025 9:13amRespiratory rate18 /qqh59-83NdmarvzhMay 24, 2025 9:13amOxygen saturation by Pulse vuetqvqd94 %95-100May 24, 2025 9:13amBP Unzofiks215 mm[Hg]100-140De2024 9:13amBP Hgyvfiriw82 mm[Hg]60-100Decemb2024 9:13amBMI (Body Mass Index)35.2 kg/t8Kkemoiuy2024 9:13am Advance Directives Advance Directive Response Recorded Date/ Time Advance Directives No October 08, 2 018 4:05pm Insurance Providers Guarantor Lisy Solis Address [address] [facility] [address]Bgyagyj Info.Home Phone: Payer Group Member ID Coverage Type Subscriber Relationship to Subscriber Effective Date Expiration Date Lawrence MONTALVO Id: [id number] Moreno Id: [id number] [address] [facility] [address] Home Phone: Email: Declined [phone] Encounters Encounter Location(s) Arrival/Admit Date Discharge/Departure Date Discharge/Departure Disposition Provider(s) Departed Physician/ Provider Office Visit -[facility] May 24, 2025 9:09am May 24, 2025 9:42am Discharged to home care or self care (routine discharge) TOMÁS Sin Recent Diagnosis Onset Date Admit Date Dietary counseling and surveillance Unknown May 24, 2025 9:09am History of transplantation, renal Unknown May 24, 2025 9:09am Hyperlipidemia Unknown May 24, 2 025 9:09am Hypertension Unknown May 24, 2 025 9:09am Obesity, Class II, BMI 35-39.9 Unknown D ecember 2024 9:09am Type 2 diabetes mellitus with hyperglycemia Unkn own May 24, 2025 9:09am Assessments Diagnosis Onset Date Resolution Status Admit Date Dietary counseling and surveillance acuteDecember 2024 9:09amHistory of transplantation, renalacuteDecember 2024 9:09amHyperlipidemiaacuteDecember 2024 9:09amHypertensionacute May 24, 2025 9:09amObesity, Class II, BMI 35-39.9acuteDeceer 2024 9:09amType 2 diabetes mellitus with hyperglycemiaacuteDeceer 2024 9:09am Plan of Treatment Author [facility] 20[facility] 7:09amType 2 diabetes mellitus ? Clinical Notes: 1. Uncontrolled, a Type 2 diabetes with A1c of 9.3% 2. Blood glucose levels above. According to enedelia 2 cgm download 12/19-01/01/25: Avg SG 226. >250-36%, >180-30%, 70-180-30%, <70-3%, <54-1%. CV 41.6%, GMI- 8.7%. Reviewed download w/ pt, glucose under target from late meal bolus or over estimation of insulin dose for carb load. Reviewed w/ pt importance of prebolus to reduce hyper/hypoglycemic events. Discussed SAID insulin pump w/ pt, declines at this time. Referral to DSME last visit, pt no showed to last apt. Continue: Jardiance Tablet, 25 MG, 1 tablet, Orally, Once a day, 90 days, 90 Tablet, Refills 0 Tresiba FlexTouch Solution Pen-injector, 200 UNIT/ML, 60 units, Subcutaneous, qam Notes: (titrate up to 70 units/day). NovoLOG FlexPen Solution Pen-injector, 100 UNIT/ML, 25,30,35 units ac based on meal size plus corrective scale 1:10 ac tid (hs if >200 half dose), Subcutaneous, As Directed Notes: (expect up to 120 units/day). Reviewed with pt how to titrate basal/bolus insulin according to fasting am/meal to meal glucose pattern. Pt verbalizes understanding. Ozempic 2mg, Subcutaneous, once weekly Enedelia 2 cgm pt adherent and benefitting from use. 3. Patient is alert, oriented and receptive to making changes or counseling Notes: Seen for an assessment of current glucose pattern, changes in treatment plan, this time was spent counseling and coordination of care related to diabetes, risks, and benefits of treatment, medications, and side effects. TOPICS REVIEWED: 1. Time was spent reviewing: a. Basic concepts of diabetes, progressive beta cell , concepts of basal/bolus/corrective insulin requirements. Basal: The goal is fasting blood glucose of 90/100-130mg. If fasting blood glucose starts to run under [...] 100-150mg range b. Nutrition: Concepts of healthy diet reviewed, encouraged to decrease saturated fat in diet [...] back meals reveal effectiveness of bolus dosing. 5. [facility] Contact office if any issues or concerns with patterns of hypoglycemia, hyperglycemia, or diabetes medication issues. 6. Prescriptions: [facility]- Carelon-Enedelia 2+, Pen needles, Ozempic sent. 7. Prescriptions will not be filled unless you are compliant with follow up appointments or have a follow up appointment scheduled as ordered by your provider. Refills should be requested at the time of your visit. controlled, managed by pcp 2024 ADA Guidelines- target blood pressure < 130/80, if it can be safely attained. 02/03 ldl 91/trig 387- on statin Another Lab requisition given today keep f/u w/ transplant team see above see above Future Tests Future scheduled test information is unavailable Pending Tests Test Name Ordered Date Scheduled Date Comprehensive Metabolic Panel May 24 9:28am Future Visits Future appointment information is unavailable Future Procedures Procedure Name Ordered Date Scheduled Date C-Peptide May 24, 2025 9:28am Lipid PanelDecember 2024 9:28amMicroAlb Creat Ratio,UDsan [facility]los [facility] 2024 9:28amThyroid Stim Hormone w/RflxDeceer 2024 9:28am Future Medications Future medication information is unavailable Patient Instructions Patient instructions are unavailable
--- OUTSIDE RECORDS SUMMARY | 2025-05-30 10:02 | XMS_ITS | Patient Health Record ---
Author Organization [facility] [place] in [place] Address [address] [place] [address] Care Team Providers Care Transformer Tester Name Role Phone Zackbrittaney Marycruz MCNEILL Primary Care Provider Steve Justicedre Dylan Eduard [phone] Allergies No Known Allergies Results Component Value Reference Range Notes MICROALBUMIN WITH RATIO Reviewed date:08/17/2024 02:22:37 PM Interpretation: Performing Lab:[facility] ([facility]), [address] [place] [address] AVE[address] [place] [address]. [address] PH:[phone] Notes/Report: MICROALBUMIN, URINE 6.9 0.0-1.9 mg/dL URINE CREAT78.22ALB/CREAT RATIO88.20.0-30.0 mg/g creatPERFORMED AT [place] [address] [place] [address] 17113WBQVQFJTNN Reviewed date:08/17/2024 02:22:59 PM Interpretation: Performing Lab:[facility] ([facility]), [address] [place] [address] AVE[address] [place] [address]. [address] PH:[phone] Notes/Report:COLORYELLOWYELLOWTURBIDITYCLEARCLEARSPECIFIC GRAVITY1.044 1.003-1.035NITRITENegativeNegativePH,URINE6.05.0-8.5LEUKOCYTE ESTERASENegative NegativeHIGH CONCENTRATIONS OF GLUCOSE MAY DECREASE THE REACTIVITY OF THE DIPSTICK LEUKOCYTE TEST PAD.PROTEINTraceNegative mg/dLGLUCOSE (URINE)>1000 Negative mg/dLKETONES (URINE)NegativeNegative mg/dLUROBILINOGEN<1.1<1.1 eu/dL BILIRUBIN (URINE)NegativeNegativeBLOOD/HGBNegativeNegativeR.B.MBEWF53-2 /hpf SQUAMOUS KYWJXWMEPO96-6 /hpfW.B.ACBTK50-4 /hpfPERFORMED AT [address] [place] [address]GSR w/GFR Reviewed date:02/23/2025 11:51:59 AM Interpretation: Performing Lab: Notes/Report:VTKWDR581489-497 mmol/LPOTASSIUM4.23.5-5.0 mmol/XWEIPTVSO31583-776 mmol/LCARBON HVMHQNB7454-29 mmol/LANION HWK263-53 mmol/LBLOOD UREA IHQCPDUL045- 27 mg/dLCREATININE0.710.40-1.00 mg/dLMETHOD TRACEABLE TO IDMS XDCNRJSWBAIIZYB812 65-99 mg/dLCALCIUM9.18.5-10.5 mg/dLEGFR (CKD-EPI) NON-RACE DEPENDENT>90>=60 ml/min/1.73sq.m Reported eGFR is based on the CKD-EPI 2020 equation that does not use a race coefficient. PERFORMED AT [address] [place] [address] CBC (COMPLETE BLOOD COUNT) * Reviewed date:02/23/2025 11:53:00 AM Interpretation: Performing Lab: Notes/Report:WBC5.54-11 x10E9/LRBC COUNT4.903.8-5.2 X10E12/NTRODMQQGHL65.311.7- 15.5 g/iPEFOPEPOLSA34.735-47 %TOI5341-528 fLMCH29.127-34 qeJAJN84.632-36 g/dLRDW 14.111.5-15 %PLATELET XTUDQ847418-586 X10E9/LMPV11.67-12 fL PERFORMED AT [address] [place] [address] ALBUMIN Reviewed date:02/23/2025 11:51:40 AM Interpretation: Performing Lab: Notes/Report:ALBUMIN4.23.2-5.3 g/dL PERFORMED AT [address] [place] [address] MAGNESIUM Reviewed date:02/23/2025 11:52:23 AM Interpretation: Performing Lab: Notes/Report:MAGNESIUM2.01.8-2.6 mg/dL PERFORMED AT [address],[place] [address] PHOSPHORUS Reviewed date:02/23/2025 11:52:10 AM Interpretation: Performing Lab: Notes/Report:PHOSPHORUS3.72.4-4.9 mg/dL PERFORMED AT [address],[place] [address] MICROALBUMIN WITH RATIO Reviewed date:02/23/2025 11:51:31 AM Interpretation: Performing Lab: Notes/Report:URINE CREATININE,RDM45.93MALB/CREAT DVZGW801.80.0-30.0 mg/g MICROALBUMIN, URINE6.10.0-1.9 mg/dL PERFORMED AT [address] [address] [facility] ([facility]) Reviewed date:02/23/2025 11:52:42 AM Interpretation: Performing Lab: Notes/Report:PTH NRLRIK5882-04 pg/mL PERFORMED AT [address],[place] [address] VITAMIN D 25 HYD TOT Reviewed date:02/23/2025 11:52:33 AM Interpretation: Performing Lab: Notes/Report:VITAMIN D 25 HYD TOT31.730.0-100.0 ng/mL Vitamin D status 25 [place] Vitamin D Deficiency <20 ng/mL Insufficiency 20-29 ng/mL Sufficiency 30-100 ng/mL Toxicity >100 ng/mL NOTE: A pediatric reference range has not been established by the maintenance fitter of this kit. The [place] [employer] recommends a Vitamin D level of = or >20ng/mL in infants and children. PERFORMED AT [address],[place] [address] URINALYSIS Reviewed date:02/26/2025 09:10:10 AM Interpretation: Performing Lab: Notes/Report:COLORYellowYellowTURBIDITYClearClearSPECIFIC GRAVITY1.0351.003- 1.035 NANITRITENegativeNegativePH,URINE5.05.0-8.5 NALEUKOCYTE ESTERASENegative NegativeHigh Concentrations of Glucose May Decrease the Reactivity of the Dipstick Leukocyte Test Pad.PROTEINNegativeNegativeKETONES (URINE)Negative NegativeUROBILINOGEN<1.1 eu/dL<1.1 eu/dLBILIRUBIN (URINE)NegativeNegative BLOOD/HGBNegativeNegativeGLUCOSE (URINE)>1000 mg/dLNegative Urine received without preservative. Delays in transport may affect results. Interpret with caution. A clinical correlation is recommended. PERFORMED AT [facility] [address],[place] [address] TACROLIMUS, B Reviewed date:02/26/2025 09:09:53 AM Interpretation: [...] developed and its performance characteristics determined by [facility] in a manner consistent with CLIA requirements. This test has not been cleared or approved by the U.S. Food and Drug Administration. Test Performed by: [facility] [place] [facility] [place] [address] [place] [address] Type Proof Reproducer: Buddy Ballard Ph.D.; CLIA# [id number] TACROLIMUS, B Reviewed date:08/21/2024 03:43:35 PM Interpretation: Performing Lab:[facility], [address] [place], [place] [address]E., [place]. [address] PH:[phone] Notes/Report:Tacrolimus, B6.25.0-15.0 (Trough) ng/mL NOTE ADDITIONAL INFORMATION Target steady-state trough concentrations vary depending on the type of transplant, concomitant immunosuppression, clinical/institutional protocols, and time post-transplant. Results should be interpreted in conjunction with this clinical information and any physical signs/symptoms of rejection/toxicity. Testing performed by Liquid Chromatography-Tandem Mass Spectrometry (LC-MS/MS). This test was developed and its performance characteristics determined by [facility] in a manner consistent with CLIA requirements. This test has not been cleared or approved by the U.S. Food and Drug Administration. Test Performed by: [facility] [address] [place] [address] Type Proof Reproducer: Buddy Ballard Ph.D.; CLIA# [id number] PERFORMED AT [address] [place] [address] PHOSPHORUS Reviewed date:08/17/2024 02:21:47 PM Interpretation: Performing Lab:[facility] ([facility]), [address] [place] [address] AVE[address] [address] PH:[phone] Notes/Report:PHOSPHORUS3.32.4-4.9 mg/dLPERFORMED AT [address] [address]KTJZKFHBQ Reviewed date:08/17/2024 02:21:53 PM Interpretation: Performing Lab:[facility] ([facility]), [address] [place] [address] AVE[address] [address] PH:[phone] Notes/Report:MAGNESIUM1.91.8-2.6 mg/dLPERFORMED AT [address] [address]RKHTUOM Reviewed date:08/17/2024 02:22:08 PM Interpretation: Performing Lab:[facility] ([facility]), [address] [place] [address] AVE[address] [address] PH:[phone] Notes/Report:ALBUMIN4.13.2-5.3 g/dLPERFORMED AT [address] [address]PUU (COMPLETE BLOOD COUNT) * Reviewed date:08/17/2024 02:23:09 PM Interpretation: Performing Lab:[facility] ([facility]), [address] [place] [address], [address] [address] PH:[phone] Notes/Report:WBC COUNT6.84.0-11.0 X10E9/LRBC COUNT4.953.80-5.20 X10E12/L TVCRSLAOFJ50.611.7-15.5 g/nURRLWVAXJVK87.935-47 %YOT6493-300 fLMCH29.527-34 pg MCHC32.532-36 g/dLRDW14.111.5-15.0 %PLATELET OSCDL234976-230 X10E9/LMPV11.07-[address] [address]QNG w/GFR Reviewed date:08/17/2024 02:22:03 PM Interpretation: Performing Lab:[facility] ([facility]), [address] [place] [address], [address] [address] PH:[phone] Notes/Report:FHALXH548227-060 mmol/LPOTASSIUM4.13.5-5.0 mmol/UQPZNEBDH18146-717 mmol/LCARBON DJNGOOP6260-30 mmol/LANION SNC685-05 mmol/LBLOOD UREA AXVIXAPZ445- 27 mg/dLCREATININE0.740.40-1.00 mg/dLMETHOD TRACEABLE TO IDMS UXHHQPHHBIAZENN168 65-99 mg/dLCALCIUM8.98.5-10.5 mg/dLeGFR (CKD-EPI) NON-RACE KQJXQJFKR29>59 ml/min/1.73sq.m Reported eGFR is based on the CKD-EPI 2020 equation that does not use a race coefficient. PERFORMED AT [address] [address] Reason For Referral No Information Medications Medication [...] Orally Once a day; Duration: 30 day(s)ActiveErgocalciferol 97634 UNIT1 capsule Orally Weekly Not-TakingCanagliflozin 100 MG1 [...] alcohol in the p ast year? No Xcvncf5XumjjidfaibhkvMsbdlqeh Problems Problem Type SNOMED Code ICD Code Onset Dates Problem Status W/U Status Risk Notes Problem Essential hypertension (00839610 ) Essential (primary) hypertension (I10) ActiveconfirmedProblemType II diabetes mellitus without complication (113487597) Type 2 diabetes mellitus without complications (E11.9)ActiveconfirmedProblem Chronic kidney disease stage 2 (440895885)Chronic kidney disease, stage II (mild) (N18.2)ActiveconfirmedProblemLong-term current use of insulin (539438399) USP current use of insulin (Z79.4)ActiveconfirmedProblemAlbuminuria (831733964)Albuminuria (R80.9)ActiveconfirmedProblemHistory of renal transplant (094891545)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)Activeconfirmed Vital Signs Blood pressure diastolic 64 mm Hg 03/05/2025 Rbyoxu6kv 6in in03/05/2025lood pressure hvbbfnyz575 mm Hg03/05/20257166Eprroy669.6 lbs03/05/2025BMI32.7 kg/m203/05/2025 Encounters Encounter Location Date Provider Diagnosis [address] [address] 08/21/2024 Dylan Kenny Chronic kidney disease, stage II (mild) N18.2 ; Type 2 diabetes mellitus without complications E11.9 ; Living-donor kidney transplant recipient Z94.0 and Albuminuria R80.9 [place] [address] [place] [address] 03/05/2025 Dylan Kenny Chronic kidney disease, stage II (mild) N18.2 ; Living-donor kidney transplant recipient Z94.0 ; Type 2 diabetes mellitus without complications E11.9 and Albuminuria R80.9 [facility] [address] [place] [address] 04/25/2025 Dylan Kenny Living-donor kidney transplant recipient [...] Provider Name:Dylan Kenny, 09/03/2025 12:00:00 PM, [address] [place] [address], [id number], Insurance Providers Payer Name Payer Address Payer Phone Subscriber Number Group Number Insured Name Patient Relationship to Insured Coverage Start Date Coverage End Date ANTH MEDICARE ADV PLAN [address] [place] [address] [id number] [facility] Lisy Solis Self - patient is the insured Medical (General) History Medical History History ICD Code History of hyperlipidemia History of diabetes mellitusHistory of gallstonesHistory of hypertensionRenal cell carcinomaSurgical History Surgery Date(Month/Year)
--- OUTSIDE RECORDS SUMMARY | 2025-05-30 10:03 | XMS_ITS | Clinical Summary ---
Author Organization [facility] [facility] Address [id number] [address] [place] [address] Care Team Providers Care Commercial Retoucher Name Role Phone Carrie Reddy Tomi CARRION-DIRECTOR OF RETAIL OPERATIONS Primary Care Provider + Allergies No known active allergies Medications MedicationSigDispense QuantityRefillsLast FilledStart DateEnd DateStatus tacrolimus (PROGRAF) 1 mg capsule Take 2 capsules (2 mg total) by mouth in the morning and 2 capsules (2 mg total) at noon and 2 capsules (2 mg total) in the evening.Active flash glucose scanning reader (FREESTYLE LISY 14 DAY READER) [facility] Active flash glucose sensor (FREESTYLE LISY 14 [...] mg total) before bedtime. 360 tablet 04/06/2023ctive insulin degludec (TRESIBA FLEXTOUCH U-100) 100 unit/mL [...] evening. Take with meals. 180 tablet 5Active PROBIOTIC, S.BOULARDII, 250 mg capsule Indications:Diabetic polyneuropathy associated with type 2 diabetes mellitus ([facility])TAKE 1 CAPSULE BY MOUTH EVERY DAY 30 capsule 1115Active Saccharomyces boulardii (FLORASTOR) 250 mg capsule Indications:Diabetic polyneuropathy associated with type 2 diabetes mellitus ([facility]-HCC)Take 1 capsule (250 mg total) by mouth Daily at 0300. 90 capsule 311//08210407/22/2024Discontinued Active Problems ProblemNoted DateDiagnosed DateObesity, oseqim8905/19/20221855Kwdjhedi42/05/2022 Chronic back pain05/18/20228953Anplwdt30/05/2022ersonal history of colonic polyps 08/15/2020 Overview (03/14/2024): Replacing Diagnosis that were inactivated after 03/14 regulatory import Wzewjroumeaoy63/31/2018Diabetic vorjtogith88/31/0934Jscqkowrscpy83/25/2018 Herniated lumbar intervertebral disc09/06/20153367Lwyvmvshhcapewyft26/29/2013History of kidney zyoewqfrmc16/28/2013Mixed ftwnmytdqtuznt30/15/2013DM (diabetes mellitus)03/28/2013Essential qgvlstgnuitn93/15/2013 Resolved Problems ProblemNoted DateDiagnosed DateResolved DateRenal cell shzaiduuz46/15/2013 05/19/2022 Encounters DateTypeDepartmentCare LasgXxyovcffcwk36/03/2025Refill [facility] [address] [facility] [place] [address] Carrie Reddy, AIRFIELD MANAGER-DIRECTOR OF RETAIL OPERATIONS Diabetic polyneuropathy associated with type 2 diabetes mellitus ([facility])from Last 3 Months Immunizations ImmunizationAdministration DatesNext DueCOVID-19, mRNA, LNP-S, PF, 100mcg/0.5mL Dose10/07/2020,09/06/2020,1DTaP / HIB07/16/2004Influenza (IM) Preservative Free04/10/2016Influenza Vaccine, Quadrivalent, Miciaakthd82/24/2023 Influenza, High-dose, Bcpxfjwafubk00/11/2020Influenza, Im Trivalent Preservative 04/14/2015Influenza, Injectable, Mdck, Preservative Free, Quad05/28/2017 Influenza, Trivalent, Nawcniasbk09/31/2024Pneumococcal Conjugate 13-Valent 09/24/2015Pneumococcal Hmkduxfbbniijb38/06/2013,02/10/2012 Family History Medical HistoryRelationNameCommentsCoronary artery diseaseBrother 1Diabetes Brother 1Back ProblemsBrother 2Coronary artery diseaseFatherDiabetesFatherStroke FatherCoronary artery diseaseMotherDiabetesMotherHypertensionMotherBreast cancer Neg HxRelationNameStatusCommentsBrother 1Brother 2AliveFatherMother Social History Tobacco UseTypesPacks/DayYears UsedDateSmoking Tobacco: NeverSmokeless Tobacco: NeverAlcohol UseStandard Drinks/WeekCommentsNever0 (1 standard drink = 0.6 oz pure alcohol)[facility] UtilitiesAnswerDate RecordedIn the past 12 months has the electric, gas, oil, or water company threatened to shut off services in your home?No12/12/2024Social Connection and Isolation PanelAnswerDate RecordedIn a typical week, how many times do you talk on the phone with family, friends, or neighbors?More than three times a week12/12/2024How often do you get together with friends or relatives?Three times a week12/12/2024How often do you attend gnosticist or anglican services?More than 4 times per year12/12/2024Do you belong to any clubs or organizations such as gnosticist groups, unions, fraternal or athletic groups, or [...] and heating?Not hard at all 11/03/2022HQ-2AnswerDate RecordedTotal Apecd473Finfillmore community medical center [place] of Occupational Health - Occupational Stress QuestionnaireAnswerDate RecordedDo you feel stress - tense, restless, nervous, or anxious, or unable to sleep at night because yourmind is troubled all the time - these days?Only a poxejw1312/12/2024 Exercise Vital SignAnswerDate RecordedOn average, how many [...] part of a household?No11/03/2022hildcareAnswerDate RecordedDo problems getting child's nurse make it difficult for you to work [...] Date RecordedSex Assigned at BirthNot on fileLegal OacPgpukl08/06/2015 11:32 AM EDTGender IdentityNot on fileSexual OrientationNot on file Last Filed Vital Signs Vital SignReadingTime TakenCommentsBlood Czmvxwza202/8007 9:48 AM EDT Yvybf0500 1:24 PM QDWTopaxisxyrn69.2 ??C (97.2 ??F)07/13/2024 2:32 PM ESTRespiratory Zblv5213 10:42 AM EDTOxygen Aqtzrdochi53%07/13/2024 2:32 PM ESTInhaled Oxygen Concentration--Unzmja99.5 kg (199 lb 9.6 oz)12/12/2024 9:48 AM GTJIrkqov691.6 cm (5' 4 )12/12/2024 9:48 AM EDTBody Mass Index34.26012/12/2024 9:48 AM EDT Plan of Treatment DateTypeDepartmentCare Team (Latest Contact Info)Zscyltopdqg14/02/2026 10:00 AM EDTOffice Visit [facility] [address] [place] [address] Health MaintenanceDue DateLast DoneCommentsDiabetic Foot Exam1972Zoster (Shingles) Vaccine (1 of 2)1973DTaP,Tdap and Td Vaccines (2 - Tdap) RSV ( or age 60+ yrs) (1 - Risk 60-74 years 1-dose series)2014Diabetic Ophthalmology Exam, 03/26/2022 Gkkaikaay01, 02/21/2018Influenza Zinxlnn67, 04/06/2023, 04/24/2020, Additional history existsAdult BMI Follow Up Plan Statin Use: Ffqkcmkj33/dult BMI Screening Depression Lmenpigzy80Fall Risk Screening Medicare Annual Wellness Visit, 11/03/2022Tobacco Npejeorhm74/5COVID-19 VaccineDiscontinued 10/07/2020, 09/06/2020, 08/09/2020 Medical Devices Not on file Procedures Procedure NamePriorityDate/TimeAssociated DiagnosisCommentsMAMM SCREENING BILATERAL W LZFTgorqxp00/08/2023 10:34 AM EST Encounter for screening mammogram for malignant neoplasm of breast HM DIABETES EYE TVBBPgwupty99/27/2022from Last 3 Months or Most Recently Relevant to Health Maintenance Results * Mammography screening bilateral with CAD (04/21/2023 [...] a MAMM 1 YR Authorizing ProviderResult TypeResult StatusMarycruz Guzman AIRFIELD MANAGER-FNPIMG MAMMOGRAPHY ORDERABLESFinal Result * DIABETES EYE EXAM (04/09/2022) Narrative Authorizing ProviderResult TypeResult StatusNot In System Ref ProvHEALTH MAINTENANCEFinal ResultPerforming OrganizationAddressCity/State/ZIP CodePhone Number MANUALLY TRANSCRIBED RESULTS from Last 3 Months or Most Recently Relevant to Health Maintenance Insurance Care Teams Team MemberRelationshipSpecialtyStart DateEnd Carrie Reddy, AIRFIELD MANAGER-DIRECTOR OF RETAIL OPERATIONS [address] [place] [address] PCP - GeneralFamily Medicine02/16/24
--- OUTSIDE RECORDS SUMMARY | 2025-05-30 10:03 | XMS_ITS | Clinical Summary ---
Author Organization [facility] Healthcare Address [address] [place] [address] Care Team Providers Care Surveillance Director Name Role Phone Unavailable Primary Care Provider Unavailabl e Social History Tobacco UseTypesPacks/DayYears UsedDateSmoking Tobacco: Never Assessed CommentsUnknownSex and Gender InformationValueDate RecordedSex Assigned at Not on fileLegal CcuXedcvk00/15/2023 7:25 PM EDTGender IdentityNot on fileSexual OrientationNot on file Last Filed Vital Signs Vital SignReadingTime TakenCommentsBlood Smgmhtlv298/7606 12:00 PM EDT Pulse--Temperature--Respiratory Rate--Oxygen Saturation--Inhaled Oxygen Concentration--Jancoz491 kg (221 lb)09/03/2020 12:00 PM QKSQyqhfj114.6 cm (5' 6 )09/03/2020 12:00 PM EDTBody Mass Index35.67009/03/2020 12:00 PM EDT Plan of Treatment Not on file Insurance
--- OUTSIDE RECORDS SUMMARY | 2025-05-30 10:03 | XMS_ITS | Clinical Summary ---
Author Organization [facility] Address [address] [place] [address] Care Team Providers Care Health Care Administrator Name Role Phone Unavailable Primary Care Provider Unavailabl e Social History Tobacco UseTypesPacks/DayYears UsedDateSmoking Tobacco: Never Assessed CommentsUnknownSex and Gender InformationValueDate RecordedSex Assigned at Not on fileLegal IbgTgbllz10/29/2022 10:49 PM EDTGender IdentityNot on file Sexual OrientationNot on file Plan of Treatment Health MaintenanceDue DateLast DoneCommentsCT Hywhxfmuskvr92/05/1955Diabetes: Hemoglobin A1C1954FIT-DNA1954FIT1954FOBT1954 Eecqojvogrvue56/05/1955Diabetes: Retinopathy Fvhdgkdrq94/05/1965Depression Edmoalzpz00/05/1967Diabetes: Urine Protein Nofitqlja21/05/1974Zoster Vaccines (1 of 2)1973Adult Hnjupzt5809/16/1976Fall Risk Jzgrlgjxa63/05/2020Pneumococcal Vaccine: 50+ Years (4 of 4 - PCV20 or PCV21), 04/19/2013, 02/10/2012COVID-19 Vaccine (4 - 2024- season)5010/07/2020, 09/06/2020, 08/09/2020Influenza Vaccine (#1), 04/06/2023, 04/24/2020, Additional history slubkcFftobgzja93/08/202511/1495Kbdzjgqgizv96/31/2034 07/14/2023olorectal Cancer Vuryiwgxa91/31/2034HIB VaccinesAged Out07/16/2004No longer eligible based on patient's [...]
--- OUTSIDE RECORDS SUMMARY | 2025-05-30 10:03 | XMS_ITS | Clinical Summary ---
Author Organization [facility] Address [facility] [place] [id number] Care Team Providers Care Plier Worker Name Role Phone Altagracia Arriola Primary Care Provider [phone] Domi Smith JACKAROO Unavailable [phone] Qiana Chiu JACKAROO Unavailable Heaven Ramos JACKAROO Unavailable [phone] Allergies No known active allergies Medications [...] FLEXTOUCH U-200 200 unit/mL (3 mL) injection 5Active OZEMPIC 2 mg/dose (8 mg/3 mL) pen injector 02/19/2022ctive empagliflozin (JARDIANCE) 25 mg tablet Take 25 mg by mouth daily with breakfast.Active pregabalin (LYRICA) 75 mg capsule Indications:Spinal stenosis, lumbar region with neurogenic claudicationTake 1 capsule by mouth three times a day for 90 days. 90 capsule 5Active Encounters DateTypeDepartmentCare ArndUzfrrbprxdn94/29/2025 1:00 PM EDTOffice Visit Neurosurgery [address] [place] [address] Andrea Gu MD Spinal stenosis, lumbar region with neurogenic claudication (Primary Dx) 03/12/2025Travelfrom Last 3 Months Social History Tobacco UseTypesPacks/DayYears UsedDateSmoking Tobacco: NeverPassive Smoke Exposure: NeverSmokeless Tobacco: Never Tobacco Cessation:Counseling Given: Not Answered Area Deprivation IndexAnswerDate RecordedNational Score (1-100), lower number is lower ewys198603/12/2025State Score (1-10), lower number is lower gxbn18403/12/2025 Data from: https://www.neighborhoodatlas.medicine.[facility].edu/. Last address used for bjvazuugvhg[address]03/12/2025CommentsUnknownSex and Gender InformationValueDate RecordedSex Assigned at BirthNot on fileLegal SexFemale 07/14/2021 1:41 PM ESTGender IdentityNot on fileSexual OrientationNot on file Last Filed Vital Signs Vital SignReadingTime TakenCommentsBlood Pkzqsjev766/7709 1:00 PM EDT Didon224203/12/2025 1:00 PM EDTTemperature--Respiratory Rate--Oxygen Nxrudxrddk44% 03/12/2025 1:00 PM EDTInhaled Oxygen Concentration--Xwnpcg46.7 kg (206 lb 9.1 oz)03/12/2025 1:00 PM RAUCaioqk601.7 cm (5' 5.25 )03/12/2025 1:00 PM EDTBody Mass Index34.1109 1:00 PM EDT Plan of Treatment Health MaintenanceDue DateLast DoneCommentsCervical Cancer Cmccjtude85/05/1966 Anxiety Zupflomtp42/05/1973Depression Veqasbwdb85/05/1973Hepatitis C Screening 1972Shingrix Vaccine (1 of 2)1973CT Pcjvrgvtvbza40/05/2000Cologuard (FIT-DNA)09/17/19997825Retfguqeufg90/05/2000Colorectal Cancer Sniokhmow07/05/2000 Fecal Occult Blood09/17/19997032Oawzravxmvboa84/05/2000RSV Vaccine (1 - Risk 50-74 years 1-dose series)2004DTaP,Tdap,Td Vaccine (2 - Tdap)07/16/2014 07/16/2004Pneumococcal Vaccine: 50+ (4 of 4 - PCV20 or PCV21)09/23/2020 09/24/2015, 04/19/2013, 02/10/2012Mammogram Efroxaglj90, 04/21/2023, 02/21/2018Advance Directive Jgzkxlhhdj66/01/2025Medicare Advantage Annual Wellness Visit06/14/2024ovid-19 Vaccine (4 - 2024- season)2025 10/07/2020, 09/06/2020, 08/09/2020Influenza Vaccine (#1), 04/06/2023, 04/24/2020, Additional history existsDiabetes Dbchgeusl02/11/2028 02/22/2025, 08/17/2024, 04/13/2024, Additional history existsLipid Screening , 02/24/2023, 08/03/2022, Additional history existsBone Density ExxawzizpLtzuunsrv02/16/2019 Insurance Care Teams Team MemberRelationshipSpecialtyStart DateEnd Date Altagracia Arriola PCP - General07/20/05 Domi Smith, JACKAROO [address] [place] [address] ReferringPain [facility]07/14/21 Qiana Chiu, HIMA [address] [place] [address] Elobjkeqz12/14/23 Heaven Ramos, HIMA [address] [address] [facility]09/29/24
--- OUTSIDE RECORDS SUMMARY | 2025-05-30 10:03 | XMS_ITS | Encounter Summary ---
Author Organization [employer] [facility] tem Address [id number] [address] [place] [address] Care Team Providers Care Wildlife Policy Professional Name Role Phone Carrie Reddy SATELLITE DISH TECHNICIAN-CHIEF LIBRARIAN CIRCULATION DEPARTMENT Primary Care Provider + Reason for Visit * ReasonCommentsMed Refill Encounter Details DateTypeDepartmentCare Team (Latest Contact Info)Nvvtahggius28/03/2025Refill [facility] Internal Medicine - Family Medicine [address] [place] [address] Carrie Reddy, SATELLITE DISH TECHNICIAN-CHIEF LIBRARIAN CIRCULATION DEPARTMENT [address] [place] [address] Diabetic polyneuropathy associated with type 2 diabetes mellitus ([facility]) Social History Tobacco UseTypesPacks/DayYears UsedDateSmoking Tobacco: NeverSmokeless Tobacco: NeverAlcohol UseStandard Drinks/WeekCommentsNever0 (1 standard drink = 0.6 oz pure alcohol)[facility] UtilitiesAnswerDate RecordedIn the past 12 months has the [employer], gas, oil, or water [employer] threatened to shut off services in your home?No12/12/2024Social Connection and Isolation PanelAnswerDate RecordedIn a typical week, how many times do you talk on the phone with family, friends, or neighbors?More than three times a week12/12/2024How often do you get together with friends or relatives?Three times a week12/12/2024How often do you attend sikh or rastafarian services?More than 4 times per year12/12/2024Do you belong to any clubs or organizations such as sikh groups, unions, fraternal or athletic groups, or [...] and heating?Not hard at all 11/03/2022HQ-2AnswerDate RecordedTotal [id number] valley hospital [facility]ational [facility] - Occupational Stress QuestionnaireAnswerDate RecordedDo you feel stress - tense, restless, nervous, or anxious, or unable to sleep at night because yourmind is troubled all the time - these days?Only a aswhhv1512/12/2024 Exercise Vital SignAnswerDate RecordedOn average, how many [...] of a household?No11/03/2022hildcareAnswerDate RecordedDo problems getting child care team lead make it difficult for you to work [...] Date RecordedSex Assigned at BirthNot on fileLegal MkxCaxhdp90/06/2015 11:32 AM EDTGender IdentityNot on fileSexual OrientationNot on filedocumented as of this encounter Plan of Treatment DateTypeDepartmentCare Team (Latest Contact Info)Iispckqkvut36/02/2026 10:00 AM EDTOffice Visit [facility] [address] [place] [address] documented as of this encounter Visit Diagnoses Diagnosis Diabetic polyneuropathy associated with type 2 diabetes mellitus ([facility]) documented in this encounter Additional Health Concerns AssessmentNoted TimePHQ-9 Depression Total Score: 9:53 AM EDTA Body Mass Index follow-up plan has been documented for the mbxgwyh5408/10/2024 3:58 PM ESTdocumented as of this encounter Care Teams Team MemberRelationshipSpecialtyStart DateEnd Date Carrie Reddy, SATELLITE DISH TECHNICIAN-CHIEF LIBRARIAN CIRCULATION DEPARTMENT [address] [place] [address] PCP - GeneralFamily Medicine02/16/24documented as of this encounter
--- OUTSIDE RECORDS SUMMARY | 2025-05-30 10:03 | XMS_ITS | Clinical Summary ---
Author Organization [facility]ADannielle Address [address], [address] [place] [address] Care Team Providers Care Area Plant Manager Name Role Phone Mariam Cowart APRN [...] InformationValueDate RecordedSex Assigned at BirthNot on fileLegal BwnPaebbk61/10/2013 4:16 PM EST Gender IdentityNot on fileSexual OrientationNot on file Last Filed Vital Signs Vital SignReadingTime TakenCommentsBlood Pressure--Pulse--Lmgqbklhlod13.4 ??C (97.6 ??F)07/07/2019 2:42 PM ESTRespiratory Rate--Oxygen Saturation--Inhaled Oxygen Concentration--Lhrznb35.8 kg (220 lb)07/07/2019 2:42 PM YOGDfofcb766.6 cm (5' 4 )07/07/2019 2:42 PM ESTBody Mass Index37.76007/07/2019 2:42 PM EST Plan of Treatment Not on file Insurance Care Teams Team MemberRelationshipSpecialtyStart DateEnd Mariam Cowart APRN - [facility] [address] [place] [address] PCP - [facility]09/10/12
--- NOTE | 2025-05-30 10:05 | PM.CN ---
Consult Note: HPI Data of Consult Patient: known to practice within the last 3 years Consult date: 03/08/25 Requesting Physician: Qiana Chiu NP Primary Care Provider: ALEXANDRIA HOWARD Consult Narrative Reason for consult: low back, bilateral lower extremity pain Narrative: 69yof who presents for assessment. continues to have low back, bilateral lower extremity pain. imaging reviewed, which shows moderate to severe stenosis from l2-5. uses percocet and pregabalin. denies adverse med side effects. failed to benefit from greater than 6 weeks of provider guided HEP. Since last visit pt was evaluated by [facility] NS Dr Gu who did offer her surgical intervention with decompression/laminectomy, however pt is not interested in surgical intervention. They did DC her gabapentin and start her on pregabalin 75mg TID which shes finding some relief with, denies side effects. pt noting significantly worsening RLE pain over the last few weeks, was evaluated in the ER with mild relief from MDP. 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.10 - Type 1 diabetes mellitus with ketoacidosis without coma (ICD-10) Kidney failure ?N19 - Unspecified kidney failure (ICD-10) Hypertension ?I10 - Essential (primary) hypertension (ICD-10) Surgical History History of cholecystectomy ?Z90.49 - Acquired absence of other specified parts of digestive tract (ICD-10) History of arthroscopy of left shoulder ?Z98.890 - Other specified postprocedural states (ICD-10) H/O hand surgery ?Z98.890 - Other specified postprocedural states (ICD-10) H/O section ?Z98.891 - History of uterine scar from previous surgery (ICD-10) H/O cervical spine surgery ?Z98.890 - Other specified postprocedural states (ICD-10) History of tonsillectomy and adenoidectomy ?Z90.89 - Acquired absence of other organs (ICD-10) History of carpal tunnel release of both wrists ?Z98.890 - Other specified postprocedural states (ICD-10) H/O: hysterectomy ?Z90.710 - Acquired absence of both cervix and uterus (ICD-10) Kidney transplant recipient ?Z94.0 - Kidney transplant status (ICD-10) Social History Smoking status: Never smoker Little interest or pleasure in doing things: not at all Feeling down, depressed, or hopeless: not at all Meds Home Medications and Allergies Home Medications ?Medication ?Instructions ?Recorded ?Confirmed ?Type OSCAL 11/23/22 History dulaglutide 1.5 mg/0.5 mL 1.5 mg subcut QWEEK 11/23/22 05/12/25 History subcutaneous pen injector (Trulicity) empagliflozin 25 mg tablet 25 mg PO DAILY 11/23/22 05/12/25 History (Jardiance) ferrous sulfate 325 mg (65 mg 325 mg PO BID 11/23/22 05/12/25 History iron) tablet insulin aspart U-100 100 unit/mL 30 unit subcut TID 11/23/22 05/12/25 History (3 mL) subcutaneous pen (Novolog FlexPen U-100 Insulin aspart) mycophenolate mofetil 500 mg tablet 800 mg PO BID 11/23/22 05/12/25 History sertraline 100 mg tablet 100 mg PO DAILY 11/23/22 05/12/25 History tacrolimus 1 mg capsule, 3 mg PO Q12H 11/23/22 05/12/25 History immediate-release semaglutide 0.25 mg or 0.5 mg (2 0.25 mg subcut QWEEK 04/20/23 05/12/25 History mg/3 mL) subcutaneous pen injector (Ozempic) naloxone 4 mg/actuation nasal 4 mg intranasal Q2M #2 ea 04/12/24 05/12/25 Rx spray (Narcan) oxycodone-acetaminophen 7.5 mg-325 1 tab PO TID PRN pain #90 tabs 03/08/25 05/12/25 Rx mg tablet (Percocet) insulin degludec 200 unit/mL (3 60 unit subcut QAM 05/12/25 05/12/25 History mL) subcutaneous pen (Tresiba FlexTouch U-200 insulin) methocarbamol 750 mg tablet 750 mg PO Q6H PRN pain #30 tabs 05/12/25 Rx methylprednisolone 4 mg tablets in 4 mg PO DAILY #21 ea 05/12/25 Rx a dose pack (Medrol (Kartik)) pregabalin 75 mg capsule 75 mg PO TID 05/12/25 05/12/25 History rosuvastatin 20 mg tablet 20 mg PO QAM 05/12/25 05/12/25 History trazodone 150 mg tablet 150 mg PO QPM 05/12/25 05/12/25 History Allergies Allergy/AdvReac Type Severity Reaction Status Date / Time No Known Drug Allergies Allergy Verified 01/26/23 10:17 Exam Narrative Exam Narrative: diffuse pain/hyperalgesia Constitutional Documenting provider has reviewed patient's vital signs: yes Common normals: no apparent distress, oriented x3 and alert General appearance: cooperative HENMT Common normals: normocephalic, hearing grossly normal bilaterally and moist oral mucous membranes Head and scalp: normocephalic Eye Common normals: PERRL Pupil: PERRL Neck & C-Spine Common normals: full ROM General: normal visual inspection Cervical spine: cervical ROM abnormal and pain with cervical ROM Chest Common normals: inspection of chest normal Respiratory Common normals: normal respiratory effort, no retractions and no use of accessory muscles Back & Pelvis Thoracic spine/upper back: thoracic spinal tenderness and paraspinal muscle tenderness; no paraspinal muscle spasm Lumbar spine/lower back: ROM limited, pain with ROM, lumbar spinal tenderness, paraspinal muscle tenderness, straight leg raise positive right and straight leg raise positive left; no paraspinal muscle spasm Sacroiliac joints: SI joint(s) abnormal Other: decreased sensation right > left L3,4,5 strength 4/5 in BLE Extremity Common normals: normal to inspection and full ROM Neuro Common normals: oriented x3 Sensorium/orientation: alert Gait (neuro): antalgic Motor exam: no movement abnormalities noted Psych Common normals: mental status grossly normal, thought process normal, cooperative, affect normal, speech normal and activity/motor behavior normal Speech: normal speech Thought process: normal thought process Results Additional Findings Additional findings: If on a controlled substance or opioids, I have checked an [place]AR[place] report on this patient and there are no aberrancies noted in the prescribing history.??If on a controlled substance or opioid a drug screen was completed and reviewed within the last year, and if there has not been a drug screen completed we ordered one today to monitor higher risk, state monitored pain medication use. As part of providing excellent, safe, comprehensive care, the following was completed at our patient's visit: 1. A medication reconciliation and review to ensure accurate knowledge of current/active medications, including asking our patients to inform us about any [id number] medications or herbal remedies/nutritional supplements/alternative remedies. 2. A review to specifically ensure our patients have had annual screening for screening for depression, screening for tobacco use, and screening for unhealthy alcohol use. For concerning screenings had a discussion with the patient, provided patient education, and recommended follow-up with primary care provider when appropriate. If patient noted with a risk of falling, they received education on strength, gait, and balance training to prevent future risk of falling. Portions of this note may have been carried over from the previous visit and updated as appropriate. Please note this office utilizes paper charting in addition to the electronic medical record. A list of current medications, vitals, and PMH is available there as the clinical staff outside of myself do not have access to [employer] charting during the clinic day operations. As part of providing quality comprehensive care the current medications, vitals, and PMH were reviewed in the paper chart. Assessment and Plan Assessment and Plan (1) Lumbar stenosis with neurogenic claudication: (2) Lumbar spondylosis: (3) Encounter for long-term use of opiate analgesic: Assessment and Plan: pt continues to report mild improvement in pain/functional ability, has failed non opioid medications and cannot take NSAIDs due to hx of CKD ?? I reviewed with the patient the potential risks and side effects with the use of? opioid medications including but not limited to respiratory depression,? sedation, and even . Within the last 12 months I have verified the patient has access to naloxone should? these effects occur. The patient was advised to let? their family know they had Naloxone in case they would need to administer? the medication. I advised the patient to avoid the use of any other? sedation substances including alcohol, THC, and benzodiazepines while? taking opioid medications due to the risk of compounding side effects and? detrimental outcomes. within the last 12 months I have reviewed the TEMPERATURE REGULATOR PYROMETER, pain treatment agreement and urine drug screen.? ?? A drug screen was completed within the last year, and no aberrancies were noted regarding their use of controlled substances. The patient understands they are subject to the terms and conditions of the pain contract that they have signed. ? ?? I have checked an OARRS report on this patient today and there are no aberrancies noted in the prescribing history.? (4) Myofascial pain: (5) Chronic pain syndrome: Plan proceed with right L4-5 L5-S1 TFESI under fluoroscopy for lumbar stenosis with NC take over pregabalin 75mg TID continue percocet 7.5-325mg TID PRN moderate to severe pain narcan previously discussed and prescribed consider referral to [facility] f/u 2 weeks after injection
== END 2025-05-30 09:56 | disposition home or self-care (01) ==
LOC: PM 09:59
PROVIDERS: PCP Nurse Practitioner Family; Visit Provider Nurse Practitioner
DX: M48.062 Spinal stenosis, lumbar region with neurogenic claudication (principal); M47.816 Spondylosis without myelopathy or radiculopathy, lumbar region; Z79.891 Long term (current) use of opiate analgesic; M79.18 Myalgia, other site; G89.4 Chronic pain syndrome
CPT/HCPCS: G0463